=== PATIENT | male | born 1965 | race Caucasian/White ===

== ENCOUNTER → 2016-10-26 | Day surgery (SDC) | payer OTHER ==
[2016-10-25 09:51] VITALS: Ht 180.3 cm; Wt 99.5 kg
[~2016-10-26] VITALS: Ht 180.3 cm; Wt 99.5 kg
[~2016-10-26] MED LIST: AMLO-110 PO; ASCA500 PO; B-COTAB18 PO; BIOT1CAP8 PO; CALC500C70 PO; CHOL1000 PO; CHOL400C PO; CLON1TAB3 PO; CLR10 PO; CYAN100020 PO; CYAN500T PO; CYM60 PO; DIPH-416 PO; DOLU1TAB PO; DULO60CA44 PO; FERR1TAB23 PO; FRS/40 PO; GLUCTAB7 PO; IMD/2 PO; KETO2SHA TOP; KRIL1CAP3 PO; LIDOCAINE HCL 2% 2 ML VIAL (20MG/ML) ONE; LITH1TAB10 PO; LSX20 PO; LTHCR300 PO; LTHSR/300 PO; LURA1TAB2 PO; METH-307 PO; METH500T3 PO; MISCTAB26 PO; MISCTAB29 PO; MULT1CHW37 PO; POTA550T4 PO; PROB1TAB16 PO; PROPOFOL IV EMULSION 10 MG/ML 20 ML VIAL IV ONE; PRT/40 PO; RBX750 PO; ROPI3TAB PO; SIME80CH PO; SODIUM CHLORIDE 0.9% 500ML 500 ML IV ONE; TERB250T47 PO; TRAM-10 PO; TRVHP PO; TYLOTC500 PO; VITACAP37 PO; ZINC1TAB PO; ZINC1TAB4 PO; [UNRECOGNIZED DRUG - CODE] PO
[2016-10-26 14:39] VITALS: TEMP 37
--- NOTE | 2016-10-26 14:48 | Endo History and Physical ---
History & Physical Date of Service: Oct 26, 2016. Chief Complaint: Diarrhea, Anemia, Wt. Loss Referring Physician: Chalino History of Present Illness 51 yo CM who presents for EGD secondary to diarrhea, anemia and weight loss. Past Surgical History Hx Cardiac Surgery: No Hx Internal Defibrillator: No Hx Pacemaker: No Hx Abdominal Surgery: Yes (GASTRIC BYPASS WITH LEODAN 2013) Hx of Implantable Prosthesis: No Hx Post-Op Nausea and Vomiting: No Hx Cancer Surgery: No Hx Thoracic Surgery: No Hx Orthopedic: No Hx Urinary Tract Surgery: No Family History None Social History Smoking Status: Never Smoker Hx Substance Use: No Hx Alcohol Use: No Allergies Uncoded Allergies: MERCURY- IN SEAFOOD,EYE DROPS,ETC (Allergy, Intermediate, FACIAL SWELLING , N/V, 06/30/16) Current Medications Reported Home Medications Medications Dose Route/Sig Max Daily Dose Days Date Category Dose Instructions Imodium (Loperamide HCl) 2 Mg Cap 2 Mg PO DAILY PRN 07/17/16 Reported Lomotil (Diphenoxylate HCl/Atropine) Tab 1-2 Tab PO Q4H PRN 07/17/16 Reported Krill Oil 1 Cap Cap 1 Cap PO QAM 07/17/16 Reported Iron (Ferrous Sulfate) 325 Mg Tab 1 Tab PO QPM 07/17/16 Reported Claritin (Loratadine) 10 Mg Tab 10 Mg PO QAM 07/17/16 Reported Zinc (Zinc Gluconate) 100 Mg Tab 1 Tab PO QAM 07/17/16 Reported Norvasc (Amlodipine Besylate) 5 Mg Tab 5 Mg PO QAM 07/17/16 Reported Ginkgo Biloba (Misc Natural Products) 1 Tab Tab 1 Tab PO QAM 07/17/16 Reported Biotin 1 Mg Cap 1 Tab PO QAM 07/17/16 Reported Vitamin D3 (Cholecalciferol) 1,000 Unit Tab 1 Tab PO QAM 07/17/16 Reported Probiotic (Probiotic Product) 1 Tab Tab 1 Tab PO QPM 07/17/16 Reported Os-Bharath 500 Plus D (Calcium/Vitamin D) Tab 1 Tab PO QPM 07/17/16 Reported Glucosamine Chondroitin (Spncdvpmpna-Lguudlpurgj-Ayw C-) 1 Tab Tab 1 Tab PO QAM 07/17/16 Reported E-400 (Vitamin E) 400 Unit Cap 1 Tab PO QAM 07/17/16 Reported Vitamin C (Ascorbic Acid) 500 Mg Tab 1 Tab PO QAM 07/17/16 Reported Multi Adult Gummies (Multiple Vitamins W/ Minerals) 1 Chw Chw 1 Tab PO BID 07/17/16 Reported Ketoconazole (Ketoconazole (Topical)) 2 % Sha 1 Appln TOP DAILY PRN 30 07/07/16 Reported Tivicay (Dolutegravir Sodium) 50 Mg Tab 50 Mg PO QAM 07/07/16 Reported Terbinafine Hcl 250 Mg Tab 1 Tab PO QAM 07/07/16 Reported Latuda (Lurasidone Hcl) 120 Mg Tab 120 Mg PO QPM 06/30/16 Reported TAKWE WITH EVENING MEAL Requip (Ropinirole HCl) 3 Mg Tab 3 Mg PO QPM 06/30/16 Reported TAKE THIS MED 2 HOURS BEFORE BEDTIME Robaxin (Methocarbamol) 750 Mg Tab 750-1,500 Mg PO DAILY PRN 06/30/16 Reported Cymbalta (Duloxetine Hcl) 60 Mg Cap 60 Mg PO HS 06/30/16 Reported TAKE WITH 30MG = 90 MG DAILY [place] Carbonate 300 Mg Cap 600 Mg PO QPM 06/30/16 Reported [place] Carbonate 300 Mg Cap 300 Mg PO QAM 06/30/16 Reported Lasix (Furosemide) 40 Mg Tab 40 Mg PO DAILY PRN 08/13/13 Reported Klonopin (Clonazepam) 1 Mg Tab 1 Mg PO BID PRN 06/20/13 Reported Truvada 200/300MG (Emtricitabine/Tenofovir) Tab 1 Tablet PO QAM 06/20/13 Reported Vital Signs Weight (Kilograms): 99.55 Height (Feet): 5 Height (Inches): 11 Date Time Temp Pulse Resp B/P Pulse Ox O2 Delivery O2 Flow Rate FiO2 10/26/16 14:39 37 68 18 137/71 98 Room Air Physical Exam General Appearance: WD/WN, no apparent distress Respiratory/Chest: Auscultation: breath sounds normal Cardiovascular: Heart Auscultation: RRR Abdomen: Bowel Sounds: normal Inspection & Palpation: soft, non-distended, no tenderness, guarding & rebound Assessment and Plan Assessment: 51 yo CM who presents for EGD secondary to diarrhea, anemia and weight loss. Plan: Proceed with EGD.
--- NOTE | 2016-10-26 15:03 | Discharge Instructions ---
Endoscopy Patient Instructions Date / Procedure(s) Performed Oct 26, 2016. EGD Allergy Information Uncoded Allergies: MERCURY- IN SEAFOOD,EYE DROPS,ETC (Allergy, Intermediate, FACIAL SWELLING , N/V, 06/30/16) Discharge Date / Findings Oct 26, 2016. Removal of foreign body (staple) Normal Italo-En-Y Gastric bypass anatomy Medication Instructions OK to resume all medications today as prescribed. Reported Home Medications Medications Dose Route/Sig Max Daily Dose Days Date Category Dose Instructions Imodium (Loperamide HCl) 2 Mg Cap 2 Mg PO DAILY PRN 07/17/16 Reported Lomotil (Diphenoxylate HCl/Atropine) Tab 1-2 Tab PO Q4H PRN 07/17/16 Reported Krill Oil 1 Cap Cap 1 Cap PO QAM 07/17/16 Reported Iron (Ferrous Sulfate) 325 Mg Tab 1 Tab PO QPM 07/17/16 Reported Claritin (Loratadine) 10 Mg Tab 10 Mg PO QAM 07/17/16 Reported Zinc (Zinc Gluconate) 100 Mg Tab 1 Tab PO QAM 07/17/16 Reported Norvasc (Amlodipine Besylate) 5 Mg Tab 5 Mg PO QAM 07/17/16 Reported Ginkgo Biloba (Misc Natural Products) 1 Tab Tab 1 Tab PO QAM 07/17/16 Reported Biotin 1 Mg Cap 1 Tab PO QAM 07/17/16 Reported Vitamin D3 (Cholecalciferol) 1,000 Unit Tab 1 Tab PO QAM 07/17/16 Reported Probiotic (Probiotic Product) 1 Tab Tab 1 Tab PO QPM 07/17/16 Reported Os-Bharath 500 Plus D (Calcium/Vitamin D) Tab 1 Tab PO QPM 07/17/16 Reported Glucosamine Chondroitin (Eeodqhckntd-Cbuiuoqxtjw-Oyc C-) 1 Tab Tab 1 Tab PO QAM 07/17/16 Reported E-400 (Vitamin E) 400 Unit Cap 1 Tab PO QAM 07/17/16 Reported Vitamin C (Ascorbic Acid) 500 Mg Tab 1 Tab PO QAM 07/17/16 Reported Multi Adult Gummies (Multiple Vitamins W/ Minerals) 1 Chw Chw 1 Tab PO BID 07/17/16 Reported Ketoconazole (Ketoconazole (Topical)) 2 % Sha 1 Appln TOP DAILY PRN 30 07/07/16 Reported Tivicay (Dolutegravir Sodium) 50 Mg Tab 50 Mg PO QAM 07/07/16 Reported Terbinafine Hcl 250 Mg Tab 1 Tab PO QAM 07/07/16 Reported Latuda (Lurasidone Hcl) 120 Mg Tab 120 Mg PO QPM 06/30/16 Reported TAKWE WITH EVENING MEAL Requip (Ropinirole HCl) 3 Mg Tab 3 Mg PO QPM 06/30/16 Reported TAKE THIS MED 2 HOURS BEFORE BEDTIME Robaxin (Methocarbamol) 750 Mg Tab 750-1,500 Mg PO DAILY PRN 06/30/16 Reported Cymbalta (Duloxetine Hcl) 60 Mg Cap 60 Mg PO HS 06/30/16 Reported TAKE WITH 30MG = 90 MG DAILY [place] Carbonate 300 Mg Cap 600 Mg PO QPM 06/30/16 Reported [place] Carbonate 300 Mg Cap 300 Mg PO QAM 06/30/16 Reported Lasix (Furosemide) 40 Mg Tab 40 Mg PO DAILY PRN 08/13/13 Reported Klonopin (Clonazepam) 1 Mg Tab 1 Mg PO BID PRN 06/20/13 Reported Truvada 200/300MG (Emtricitabine/Tenofovir) Tab 1 Tablet PO QAM 06/20/13 Reported Provider Instructions Activity Restrictions - No exercising or heavy lifting for 24 hours. - Do not drink alcohol the day of the procedure. - Do not drive a car or operate machinery until the day after the procedure. - Do not make any important decisions or sign important papers in 24 hours after the procedure. Following Day: - Return to full activity which may include returning to work/school. Diet Start your diet with liquids and light foods (jello, soup, juice, toast). Then eat your usual diet if not nauseated. Treatment For Common After Affects For mild abdominal pain, bloating, or excessive gas: - Rest - Eat lightly - Lie on right side Follow-Up Information Follow-up with Chalino as scheduled Anesthesia Information What You Should Know You have had a procedure that required some medicine to reduce anxiety and discomfort. This treatment is called moderate sedation. After receiving the treatment, you may be sleepy, but you will be able to breathe on your own. The effects of the treatment may last for several hours. Follow these instructions along with Activity/Diet recommendations noted above: * Do NOT do anything where dizziness or clumsiness would be dangerous. * Rest quietly at home today, then you can be up and about tomorrow. * Have a responsible person stay with you the rest of today. * You may have had an I.V. today. If so, you may take the dressing off later today. Recommendations Call your doctor if: * Trouble breathing * Continuous vomiting for more than 24 hours * Temperature above 101 degrees * Severe abdominal pain or bloating * Pain not relieved by pain medicine ordered * There is increased drainage or redness from any incision * A large amount of rectal bleeding greater than 2-3 tablespoons. (If you had a polyp/s removed or have hemorrhoids, a small amount of blood - from the rectum is to be expected.) * You have any unanswered questions or concerns. IN THE EVENT OF A SERIOUS EMERGENCY, GO TO THE NEAREST EMERGENCY ROOM Your discharge instructions were prepared by provider Roge Ramos. Patient Instructions Signature Page Vijay Bower Patient (or Guardian) Signature/Date: I have read and understand the instructions given to me by my caregivers. Caregiver/RN/Doctor Signature/Date: The above-named patient and/or guardian has received patient instructions on this date. + Original Patient Signature Page (only) stays with chart. Please make copy for patient.
--- NOTE | 2016-10-26 15:17 | GI REPORT ---
Procedure Date: 10/26/2016 2:52 PM Procedure: Upper GI endoscopy Indications: Iron deficiency anemia, Diarrhea, Weight loss Medicines: Monitored Anesthesia Care Complications: No immediate complications. Estimated Blood Loss: Estimated blood loss: none. Procedure: Pre-Anesthesia Assessment: - Prior to the procedure, a History and Physical was performed, and patient medications and allergies were reviewed. The patient's tolerance of previous anesthesia was also reviewed. The risks and benefits of the procedure and the sedation options and risks were discussed with the patient. All questions were answered, and informed consent was obtained. Prior Anticoagulants: The patient has taken no previous anticoagulant or antiplatelet agents. ASA Grade Assessment: III - A patient with severe systemic disease. After reviewing the risks and benefits, the patient was deemed in satisfactory condition to undergo the procedure. After obtaining informed consent, the endoscope was passed under direct vision. Throughout the procedure, the patient's blood pressure, pulse, and oxygen saturations were monitored continuously. The scope was introduced through the mouth, and advanced to the second part of duodenum. The upper GI endoscopy was accomplished without difficulty. The patient tolerated the procedure well. Findings: The esophagus was normal. Evidence of a Italo-en-Y gastrojejunostomy was found. The gastrojejunal anastomosis was characterized by healthy appearing mucosa and an intact staple line. This was traversed. The emckv-zi-hjodgyr limb was characterized by healthy appearing mucosa. The eitgdhmj-pp-tmsfpea limb was not examined as it could not be found. The examined jejunum was normal. Impression: - Normal esophagus. - Italo-en-Y gastrojejunostomy with gastrojejunal anastomosis characterized by healthy appearing mucosa and an intact staple line. - Normal examined jejunum. - No specimens collected. Recommendation: - Resume previous diet. - Continue present medications. - Return to GI office as previously scheduled. Roge Ramos DO 10/26/2016 3:17:23 PM This report has been signed electronically. Note Initiated On: 10/26/2016 2:52 PM I attest to the content of the Intraoperative Record and orders documented therein, exceptions below
[2016-10-26 15:32] VITALS: BP 117/68; PULSE 62; O2SAT 98
--- NOTE | 2016-10-26 15:36 | Anesthesiology Progress Note ---
Anesthesia Post Op Note Date & Time Oct 26, 2016 at 15:37 Vital Signs Pain Intensity: 0 Vital Signs Past 12 Hours Date Time Temp Pulse Resp B/P Pulse Ox O2 Delivery O2 Flow Rate FiO2 10/26/16 15:32 62 18 117/68 98 Room Air 10/26/16 15:15 62 18 113/72 100 Room Air 10/26/16 15:05 18 107/59 98 Room Air 10/26/16 14:39 37 68 18 137/71 98 Room Air Notes Mental Status: alert / awake / arousable, participated in evaluation Pt Amnestic to Procedure: Yes Nausea / Vomiting: adequately controlled Pain: adequately controlled Airway Patency, RR, SpO2: stable & adequate BP & HR: stable & adequate Hydration State: stable & adequate Anesthetic Complications: no major complications apparent
== END | disposition home or self-care (01) ==
LOC: C.GI 14:22
PROVIDERS: ATTEND Internal Medicine
DX: D50.9 Iron deficiency anemia, unspecified (principal); R63.4 Abnormal weight loss; R19.7 Diarrhea, unspecified; Z98.84 Bariatric surgery status; Z98.890 Other specified postprocedural states

== ENCOUNTER → 2017-01-18 | Outpatient (CLI) | payer OTHER ==
[~2017-01-18] MED LIST changes: -LIDOCAINE HCL 2% 2 ML VIAL (20MG/ML) ONE; +PANT40TA2 PO; -PROPOFOL IV EMULSION 10 MG/ML 20 ML VIAL IV ONE; -PRT/40 PO; -SODIUM CHLORIDE 0.9% 500ML 500 ML IV ONE
[2017-01-18 12:03] LABS: BASO % 0.5 %; BASO ABS # 0.02 K/uL (0-0.2); COMPLETE YES; EOS % 1.9 %; HEMATOCRIT 39.7 % (42-52); LYMPH % 41.1 %; LYMPH ABS # 1.75 K/uL (1.2-3.4); MEAN CELL VOLUME 87.4 fL (80-100); MEAN CORPUSCULAR HEMOGLOBIN 30.8 pg (25-34); MEAN CORPUSCULAR HGB CONC 35.3 g/dl (32-36); MEAN PLATELET VOLUME 10.1 fL (7.4-10.4); MONO % 8.7 %; NEUT % 47.8 %; PLATELET COUNT 148 K/uL (130-400); RED BLOOD COUNT 4.54 M/uL (4.7-6.1); WHITE BLOOD COUNT 4.26 K/uL (4.8-10.8)
[2017-01-18 12:48] LABS: ALT/SGPT 19 U/L (12-78); BLOOD UREA NITROGEN 13 mg/dl (7-18); BUN/CREATININE RATIO 13.5 (10-20); CARBON DIOXIDE 28 mmol/L (21-32); CHLORIDE 108 mmol/L (98-107); CHOLESTEROL 148 mg/dl (0-200); CREATININE 0.96 mg/dl (0.60-1.40); GLUCOSE 83 mg/dl (70-99); POTASSIUM 3.8 mmol/L (3.5-5.1); SODIUM 141 mmol/L (136-145); TRIGLYCERIDES 83 mg/dl (0-150); VERY LOW DENSITY LIPOPROT CALC 17 mg/dl
[2017-01-18 12:57] LABS: ALB/GLOB RATIO 1.5 (0.9-2); ALKALINE PHOSPHATASE 66 U/L (45-117); AST/SGOT 14 U/L (15-37); CHOLESTEROL/HDL RATIO 2.7; FERRITIN 149.6 ng/ml (8.0-388.0); HDL CHOLESTEROL 54 mg/dl; LDL CHOLESTEROL CALCULATED 77 mg/dl
[2017-01-18 12:59] LABS: CALCIUM 9.6 mg/dl (8.5-10.1)
== END | disposition home or self-care (01) ==
LOC: C.LAB1850 11:20
PROVIDERS: ATTEND Internal Medicine
DX: D64.9 Anemia, unspecified (principal); E55.9 Vitamin D deficiency, unspecified; R94.6 Abnormal results of thyroid function studies; B20 Human immunodeficiency virus [HIV] disease; I10 Essential (primary) hypertension; R41.3 Other amnesia

== ENCOUNTER 2017-03-04 23:29 | Inpatient (IN) | payer OTHER ==
[~2017-03-04] VITALS: Ht 177.8 cm; Wt 90.0 kg
[~2017-03-04 23:29] MED LIST changes: -B-COTAB18 PO; -CHOL400C PO; -CYAN100020 PO; -CYAN500T PO; -CYM60 PO; -LITH1TAB10 PO; -LSX20 PO; -LTHCR300 PO; -METH500T3 PO; -MISCTAB29 PO; -PANT40TA2 PO; -POTA550T4 PO; -RBX750 PO; -SIME80CH PO; -TRAM-10 PO; -TYLOTC500 PO; -ZINC1TAB PO; -[UNRECOGNIZED DRUG - CODE] PO
[2017-03-04] MEDS ORDERED: NALOXONE HCL 0.4 MG/1 ML VIAL/CARP ONE (23:42)
[2017-03-04] MEDS ORDERED: SODIUM CHLORIDE 0.9% 1000ML 1,000 ML IV STA (23:45)
[2017-03-04 23:56] LABS: BASO % 0.2 %; BASO ABS # 0.01 K/uL (0-0.2); COMPLETE YES; EOS % 1.7 %; HEMATOCRIT 33.5 % (42-52); IG% 0.2 %; LYMPH % 28.6 %; LYMPH ABS # 1.49 K/uL (1.2-3.4); MEAN CELL VOLUME 87.9 fL (80-100); MEAN CORPUSCULAR HEMOGLOBIN 29.9 pg (25-34); MEAN PLATELET VOLUME 9.6 fL (7.4-10.4); MONO % 8.8 %; NEUT % 60.5 %; PLATELET COUNT 139 K/uL (130-400); RED BLOOD COUNT 3.81 M/uL (4.7-6.1); WHITE BLOOD COUNT 5.21 K/uL (4.8-10.8)
[2017-03-05] VITALS (33 sets, daily range): BP systolic 127–181; BP diastolic 81–105; PULSE 51–76; TEMP 34.7–36.9; O2SAT 100; Ht 177.8 cm; Wt 90.0 kg
[2017-03-05] MEDS ORDERED: DEXTROSE 50% 50 ML SYR IV STA (00:01)
[2017-03-05] MEDS ORDERED: RBX750 PO (00:07)
[2017-03-05] MEDS ORDERED: LSX20 PO (00:09)
[2017-03-05] MEDS ORDERED: PRT/40 PO (00:09)
[2017-03-05] MEDS ORDERED: [UNRECOGNIZED DRUG - CODE] PO (00:13)
[2017-03-05] MEDS ORDERED: LITH1TAB10 PO (00:15)
[2017-03-05] MEDS ORDERED: LTHCR300 PO ×3 (00:15→00:24)
[2017-03-05 00:17] LABS: ALT/SGPT 21 U/L (12-78); BLOOD UREA NITROGEN 14 mg/dl (7-18); BUN/CREATININE RATIO 14.1 (10-20); CALCIUM 7.8 mg/dl (8.5-10.1); CARBON DIOXIDE 26 mmol/L (21-32); CHLORIDE 110 mmol/L (98-107); CREATININE 0.99 mg/dl (0.60-1.40); GLUCOSE 69 mg/dl (70-99); MAGNESIUM 2.2 mg/dl (1.8-2.4); POTASSIUM 3.1 mmol/L (3.5-5.1); SODIUM 144 mmol/L (136-145)
[2017-03-05] MEDS ORDERED: TRAM-10 PO (00:17)
[2017-03-05] MEDS ORDERED: CYM60 PO (00:18)
[2017-03-05] MEDS ORDERED: SIME80CH PO (00:26)
[2017-03-05] MEDS ORDERED: MISCTAB29 PO (00:27)
[2017-03-05] MEDS ORDERED: METH500T3 PO (00:27)
[2017-03-05 00:28] LABS: ALKALINE PHOSPHATASE 90 U/L (45-117); AST/SGOT 14 U/L (15-37); THYROID STIMULATING HORMONE 0.373 uIu/ml (0.300-4.500)
[2017-03-05] MEDS ORDERED: POTA550T4 PO (00:29)
[2017-03-05] MEDS ORDERED: B-COTAB18 PO (00:29)
[2017-03-05] MEDS ORDERED: CHOL400C PO (00:29)
[2017-03-05] MEDS ORDERED: CYAN100020 PO (00:29)
[2017-03-05] MEDS ORDERED: TYLOTC500 PO (00:30)
[2017-03-05] MEDS ORDERED: ZINC1TAB PO (00:30)
[2017-03-05 00:35] LABS: ACETAMINOPHEN 6 ug/ml (10-30); LITHIUM 0.3 mMOL/L (0.6-1.2)
[2017-03-05 00:38] LABS: BENZODIAZEPINE, URINE NEG (NEG); COCAINE,URINE NEG (NEG); PHENCYCLIDINE, URINE NEG (NEG)
[2017-03-05] MEDS ORDERED: SODIUM CHLORIDE 0.9% 1000ML 1,000 ML IV STA (00:57)
--- NOTE | 2017-03-05 01:56 | EMERGENCY ROOM VISIT NOTE ---
History Report prepared by Asael: Alfredito Ritter Under the Supervision of: Dr. Julia Hernandez M.D. First contact with patient: 23:32 Chief Complaint: UNRESPONSIVE Stated Complaint: UNRESPONSIVE History of Present Illness The patient is a 51 year old male who presents to the Emergency Room for evaluation of a persistent unresponsive state. Per nursing staff, the patient was found unresponsive by his partner. They state that the patient is reported to have been having problems with suicidal ideation recently. He is on Klonopin , Robaxin and Goodell. The patient is HIV positive. HPI limited secondary to unresponsive status. Source of History: nursing staff History Limited By: other (Unresponsive state) Quality: other (Unresponsive status) Timing: other (persistent.) Review of Systems ROS unobtainable secondary to unresponsive status. Past Medical & Surgical Medical Problems: (1) Human Immunodeficiency Virus [Hiv] Disease (2) Hyperlipidemia Nec/Nos (3) Hypertension Nos (4) Kidney stones (5) Peripheral neuropathy (6) Pneumonia (7) Restless leg syndrome (8) Unresponsive Family History Cancer Diabetes mellitus FH ischemic heart disease FH: arthritis FH: seizures Hypertension Lung disease Other cardiovascular diseases Trach/bronchog mal Social History Smoking Status: Never Smoker Alcohol Use: none Drug Use: none Marital Status: in relationship Housing Status: lives with significant other Occupation Status: unemployed Current/Historical Medications Scheduled Amlodipine (Norvasc), 5 MG PO QAM Ascorbic Acid (Vitamin C), 1 TAB PO BID B-Complex Vitamins (Vitamin B Complex), 1 TABS PO DAILYBB Biotin (Biotin), 1 TAB PO QAM Calcium/Vitamin D (Os-Bharath 500 Plus D), 1 TAB PO QPM Cholecalciferol (Vitamin D3), 1 TAB PO QAM Cholecalciferol (Vitamin D3 400), 400 UNIT PO DAILY Cyanocobalamin (Vitamin B12), 1 TAB PO BID Dolutegravir Sodium (Tivicay), 50 MG PO QAM Duloxetine HCl (Duloxetine HCl), 120 MG PO DAILY Emtricitabine/Temofovir (Truvada 200/300MG), 1 TABLET PO QAM Furosemide (Furosemide), 20 MG PO DAILY Ketoconazole (Topical) (Ketoconazole), 1 APPLN TOP DAILY Goodell Carbonate (Goodell Carbonate ER), 1 TAB PO QAM Goodell Carbonate (Goodell Carbonate ER), 2 TAB PO QPM Loratadine (Claritin), 10 MG PO QAM Lurasidone Hcl (Latuda), 120 MG PO QPM Methocarbamol (Methocarbamol), 750 MG PO TID Methylcellulose (Laxative) (Citrucel), 500 MG PO QID Misc Natural Products (Ginkgo Biloba), 120 MG PO QAM Misc Natural Products (Osteo Bi-Flex Advanced Tr), 1 TAB PO DAILY Multiple Vitamins W/ Minerals (Multi Adult Gummies), 1 TAB PO BID Pantoprazole (Pantoprazole Sodium), 40 MG PO DAILY Potassium Gluconate (Potassium Gluconate), 550 MG PO DAILY Probiotic Product (Probiotic), 1 TAB PO QPM Ropinirole (Requip), 3 MG PO QPM Terbinafine Hcl (Terbinafine Hcl), 1 TAB PO QAM Vitamin E (E-400), 400 UNIT PO BID Zinc Gluconate (Zinc), 50 MG PO DAILY Scheduled PRN Acetaminophen (Tylenol), 1,000 MG PO Q4 PRN for Pain or Fever Clonazepam (Klonopin), 1 MG PO BID PRN for Anxiety Diphenoxylate/Atropine (Lomotil), 1-2 TAB PO Q4H PRN for Diarrhea Simethicone (Gas-X), 80 MG PO QID PRN for Gas or Constipation Tramadol (Ultram), 50-100 MG PO DAILY PRN for Pain Allergies Coded Allergies: Mercury (Verified Allergy, Intermediate, Facial swelling, N/V, 03/05/17) "mercury, as in seafood, eye gtts, etc." Physical Exam Vital Signs Date Time Temp Pulse Resp B/P (MAP) Pulse Ox O2 Delivery O2 Flow Rate FiO2 03/05/17 02:45 44 16 91/60 99 Nasal Cannula 2.0 03/05/17 02:20 34.5 46 16 91/54 100 Nasal Cannula 2.0 03/05/17 02:11 47 03/05/17 01:51 48 16 87/46 100 Nasal Cannula 2.0 03/05/17 01:15 49 16 87/49 98 Nasal Cannula 2.0 03/05/17 00:44 51 16 98/57 98 Nasal Cannula 2.0 03/04/17 23:37 60 03/04/17 23:30 35.3 61 16 97/50 97 Room Air Physical Exam Vital signs reviewed. General: Unresponsive to painful or verbal stimuli. Snoring respirations. Oxygen saturations are stable. Noted to be mildly hypotensive. Generally atraumatic. HEENT: No scleral icterus, PERRLA, neck supple. Atraumatic. Cardiovascular: Regular rate and rhythm, no extra sounds. Pulmonary: Clear to auscultation bilaterally, normal work of breathing. Abdomen: Soft, nontender, nondistended, positive bowel sounds. : Two separate rings in place around the genitals. Ulcerations noted to the base of the penis. Moderate swelling appreciated to both the scrotum and the penis. No ischemic injury appreciated. Musculoskeletal: Atraumatic, no peripheral edema. Neurologic: Unresponsive to painful or verbal stimuli. Skin: Warm, dry, no rash Medical Decision & Procedures ER Provider Diagnostic Interpretation: CT results per statrad and my review. CT HEAD: Comparison: MRI dated 08/29/[address] dated 06/20/2013. No evidence of acute intracranial abnormality. Specifically, no acute intracranial hemorrhage, acute infarct, ventriculomegaly, mass effect or midline shift. Mild mucosal thickening in the inferior aspects of the maxillary sinuses. No air-fluid levels in the visualized paranasal sinuses. Skull is intact. One View Chest X-ray interpreted by me: No focal lung consolidation. No failure. Laboratory Results 03/04/17 23:40 Red Blood Count 3.81, Mean Corpuscular Volume 87.9, Mean Corpuscular Hemoglobin 29.9, Mean Corpuscular Hemoglobin Concent 34.0, Mean Platelet Volume 9.6, Neutrophils (%) (Auto) 60.5, Lymphocytes (%) (Auto) 28.6, Monocytes (%) (Auto) 8.8, Eosinophils (%) (Auto) 1.7, Basophils (%) (Auto) 0.2, Neutrophils # (Auto) 3.15, Lymphocytes # (Auto) 1.49, Monocytes # (Auto) 0.46, Eosinophils # (Auto) 0.09, Basophils # (Auto) 0.01 03/04/17 23:40 Test 03/04/17 23:38 03/04/17 23:40 03/04/17 23:50 03/04/17 23:59 Bedside Glucose 75 mg/dl (70-99) White Blood Count 5.21 K/uL (4.8-10.8) Red Blood Count 3.81 M/uL (4.7-6.1) Hemoglobin 11.4 g/dL (14.0-18.0) Hematocrit 33.5 % (42-52) Mean Corpuscular Volume 87.9 fL (80-100) Mean Corpuscular Hemoglobin 29.9 pg (25-34) Mean Corpuscular Hemoglobin Concent 34.0 g/dl (32-36) Platelet Count 139 K/uL (130-400) Mean Platelet Volume 9.6 fL (7.4-10.4) Neutrophils (%) (Auto) 60.5 % Lymphocytes (%) (Auto) 28.6 % Monocytes (%) (Auto) 8.8 % Eosinophils (%) (Auto) 1.7 % Basophils (%) (Auto) 0.2 % Neutrophils # (Auto) 3.15 K/uL (1.4-6.5) Lymphocytes # (Auto) 1.49 K/uL (1.2-3.4) Monocytes # (Auto) 0.46 K/uL (0.11-0.59) Eosinophils # (Auto) 0.09 K/uL (0-0.5) Basophils # (Auto) 0.01 K/uL (0-0.2) RDW Standard Deviation 42.5 fL (36.4-46.3) RDW Coefficient of Variation 13.2 % (11.5-14.5) Immature Granulocyte % (Auto) 0.2 % Immature Granulocyte # (Auto) 0.01 K/uL (0.00-0.02) Anion Gap 8.0 mmol/L (3-11) Estimated GFR () 103.2 Estimated GFR (Non- 89.1 BUN/Creatinine Ratio 14.1 (10-20) Calcium Level 7.8 mg/dl (8.5-10.1) Magnesium Level 2.2 mg/dl (1.8-2.4) Total Bilirubin 0.4 mg/dl (0.2-1) Direct Bilirubin < 0.1 mg/dl (0-0.2) Aspartate Amino Transf (AST/SGOT) 14 U/L (15-37) Alanine Aminotransferase (ALT/SGPT) 21 U/L (12-78) Alkaline Phosphatase 90 U/L (45-117) Total Protein 5.5 gm/dl (6.4-8.2) Albumin 2.9 gm/dl (3.4-5.0) Thyroid Stimulating Hormone (TSH) 0.373 uIu/ml (0.300-4.500) Salicylates Level < 1.7 mg/dl (2.8-20) Acetaminophen Level 6 ug/ml (10-30) Goodell Level 0.3 mMOL/L (0.6-1.2) Ethyl Alcohol mg/dL < 3.0 mg/dl (0-3) Urine Opiates Screen POS (NEG) Urine Methadone, Qualitative NEG (NEG) Urine Barbiturates NEG (NEG) Urine Phencyclidine (PCP) Level NEG (NEG) Ur Amphetamine/Methamphetamine POS (NEG) MDMA (Ecstasy) Screen POS (NEG) Urine Benzodiazepines Screen NEG (NEG) Urine Cocaine Metabolite NEG (NEG) Urine Marijuana (THC) NEG (NEG) Bedside Troponin I < 0.030 ng/ml (0-0.045) Test 03/05/17 00:00 03/05/17 02:11 03/05/17 02:57 Lyme Disease IgG Antibody NEG (NEG) Lyme Disease IgM Antibody NEG (NEG) Bedside Blood Gas pH (LAB) 7.28 (7.35-7.45) Bedside Blood Gas pCO2 (LAB) 55 mmHg (35-46) Bedside Blood Gas pO2 (LAB) 84 mmHg (80-95) Bedside Blood Gas HCO3 (LAB) 26 meq/L (19-24) Bedside Blood Gas Total CO2 27 mEq/l (24-31) Bedside Blood Gas Base Excess (LAB) -1.0 meq/L (-9-1.8) Bedside Blood Gas O2 Saturation 94.0 % (90-95) Laboratory results per my review. Medications Administered Medications (Trade) Dose Ordered Sig/Anthony Route Start Time Stop Time Status Last Admin Dose Admin Naloxone HCl (Narcan Inj) 1.2 mg STK-MED ONCE .ROUTE 03/04/17 23:42 03/04/17 23:43 DC 03/04/17 23:45 1 MG Sodium Chloride 1,000 ml @ 999 mls/hr Q1H1M STAT IV 03/04/17 23:45 03/05/17 00:45 DC 03/04/17 23:45 999 MLS/HR Dextrose (Dextrose 50% 50ML Syringe) 25 ml NOW STAT IV 03/05/17 00:01 03/05/17 00:02 DC 03/05/17 01:20 25 ML Sodium Chloride 1,000 ml @ 200 mls/hr Q5H STAT IV 03/05/17 00:57 03/05/17 04:53 DC 03/05/17 01:19 200 MLS/HR Procedure Endotracheal Intubation Indication: airway protection. The patient was on 100% oxygen via NRB prior to the procedure. Suction, airway equipment, RSI drugs, respiratory equipment, and appropriate personnel were prepared prior to the initiation of the procedure. A time out was taken. After observing the clinical benefit of the medications, the airway was easily visualized utilizing a 4-0 straight blade. A 7.5 size ETT tube was placed atraumatically to 25 cm using standard technique. The cuff inflated without signs of malfunction. There were bilateral breath sounds, positive colormetric change, no gastric sounds, a good capnography waveform, and post procedure pulse oximetry was 100%. No post procedural sedation was required.. There were no complications. ECG Indication: altered mental status Rate (beats per minute): 61 Rhythm: normal sinus Findings: no acute ischemic change, no ectopy, other (QTC of 475. Non-specific intraventricular conduction delay.) ED Course 2339: Past medical records reviewed. The patient was evaluated in room B1. A complete history and physical examination was performed. 2342: Ordered Narcan Inj 1.2 mg IV. 2345: Ordered Sodium Chloride 1000 ml @ 999 mls/hr IV. 0001: Ordered Dextrose 50% 50 mL Syringe 25 mL IV. 0057: Ordered Sodium Chloride 1000 ml @ 200 mls/hr IV. 0131: Upon reevaluation, the patient is resting comfortably. I discussed laboratory and radiographic results with his family. They verbalized agreement of the treatment plan. I spoke with Dr. Stern of the [facility] Hospitalist Service. The patient will be evaluated for further management and care. 0248: Respiratory was called for the patient. 0310: I intubated the patient. See the procedure note for details. Medical Decision Differential diagnosis: Etiologies such as metabolic, infection, hypoglycemia, electrolyte abnormalities , cardiac sources, intracerebral event, toxicologic, neurologic, as well as others were entertained. This patient was evaluated and appeared to be in no significant distress although he is unresponsive. She is got responded to nasal trumpet placement or IV start. He is breathing on his own and maintaining his oxygenation. Nasal trauma was placed due to some snoring. IV fluids were initiated due to relative hypotension. He is hypothermic and a bear hugger was placed. Patient' s urine drug screen is positive for MDMA, marijuana and opiates. He is not responding to multiple doses of Narcan. Head CT was performed and reveals no evidence of acute intracranial abnormality. The hospitalist was consulted after the patient did not have any improvement in mental status in the emergency department. Dr. Stern has agreed to evaluate him for admission. After his assessment, he has requested endotracheal intubation which was performed without sedation or paralytics. Please my note above. The patient did not require any sedation to maintain the ET tube. Dr. Haines of the ICU was consulted and did arrive in the emergency department, requesting a stat EEG and MRI. I did speak with the patient's partner and made him aware of the patient's critical status. He has agreed to intubation but asks not to have the patient resuscitated otherwise. He states he has documentation of the patient's wishes at home. Consults Time Called: 0122 Consulting Physician: Dr. Stern -[facility] Returned Call: [phone] I reviewed the patient's case with Dr. Stern. [facility] for further management. Impression Primary Impression: Altered mental status Additional Impression: Polysubstance abuse Scribe Attestation The scribe's documentation has been prepared under my direction and personally reviewed by me in its entirety. I confirm that the note above accurately reflects all work, treatment, procedures, and medical decision making performed by me. Departure Information Dispostion Being Evaluated By Hospitalist Referrals RV. Vigil MD (PCP) Patient Instructions My [facility] Problem Qualifiers
[2017-03-05] MEDS ORDERED: MoRPHine SULFATE 2 MG/ML CARP IV PRN (03:00)
[2017-03-05] MEDS ORDERED: LORAZEPAM 2 MG/ML 1 ML VIAL IV PRN (03:00)
[2017-03-05] MEDS ORDERED: RAPID SEQUENCE INDUCTION BAG ONE (03:06)
[2017-03-05 03:11] LABS: ISTAT ARTERIAL BLOOD GAS HCO3 26 meq/L (19-24); ISTAT ARTERIAL BLOOD GAS PCO2 55 mmHg (35-46); ISTAT ARTERIAL BLOOD GAS PO2 84 mmHg (80-95); ISTAT ARTERIAL BLOOD GAS pH 7.28 (7.35-7.45); ISTAT CARBON DIOXIDE 27 mEq/l (24-31)
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
[2017-03-05] MEDS ORDERED: D5NSS + 20MEQ KCL 1,000 ML IV SCH (03:30)
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
--- NOTE | 2017-03-05 04:11 | DIAGNOSTIC IMAGING REPORT ---
CHEST ONE VIEW PORTABLE CLINICAL HISTORY: ETT deviation COMPARISON STUDY: No previous studies for comparison. FINDINGS: Endotracheal tube 4.7 cm both bisi. Nasogastric tube within the stomach. Lungs are clear. IMPRESSION: Endotracheal tube 4.7 cm above the bisi. Nasogastric tube within the stomach. Lungs are clear. No evidence for cardiac enlargement. Electronically signed by: Ramón Ashton M.D. 03/05/2017 4:10 AM Dictated Date/Time: 03/05/2017 4:08 AM
--- NOTE | 2017-03-05 04:14 | DIAGNOSTIC IMAGING REPORT ---
ORBIT RADIOGRAPHS 3 VIEWS HISTORY: pre-MRI screening. COMPARISON: None. FINDINGS: There are no radiopaque foreign bodies identified within the orbits. IMPRESSION: No radiopaque foreign bodies identified within the orbits. Electronically signed by: Ramón Ashton M.D. 03/05/2017 4:12 AM Dictated Date/Time: 03/05/2017 4:12 AM
[2017-03-05 04:22] LABS: LYME DISEASE AB IGG NEG (NEG); LYME DISEASE AB IGM NEG (NEG)
[2017-03-05] MEDS ORDERED: PROSOURCE NOCARB 30ML/PKT PO SCH (05:30)
[2017-03-05] MEDS ORDERED: POTASSIUM CHLORIDE 10 MEQ TABCR PO ONE (06:30)
--- NOTE | 2017-03-05 07:18 | DIAGNOSTIC IMAGING REPORT ---
CT OF THE HEAD WITHOUT CONTRAST CLINICAL HISTORY: Altered mental status. COMPARISON STUDY: Head CT June 20, 2013 and MRI of the brain August 29, 2016. CT DOSE: 614.27 mGy.cm TECHNIQUE: Helical axial images of the head were obtained without IV contrast. Automated exposure control was utilized for the study. FINDINGS: No acute intracranial hemorrhage, midline shift or mass effect is present. Ventricular system is normal. Basilar cisterns are patent. There are no extra-axial collections. Spencer-white differentiation is maintained. There are no findings to suggest acute dural sinus thrombosis or acute territorial infarct. There is mild polypoid mucosal thickening within the sinuses. There is no calvarial abnormality. IMPRESSION: No acute intracranial findings. Electronically signed by: Dwight Hercules M.D. 03/05/2017 7:16 AM Dictated Date/Time: 03/05/2017 7:14 AM
--- NOTE | 2017-03-05 07:20 | DIAGNOSTIC IMAGING REPORT ---
SINGLE VIEW CHEST CLINICAL HISTORY: Change in mental status. Unresponsive. FINDINGS: An AP, portable, upright chest radiograph is compared to study dated 05/10/2014 and correlated with chest CT dated 11/12/2013. The examination is degraded by portable technique and patient rotation. The heart is top normal for projection. Chronic interstitial thickening is unchanged. No airspace consolidation or large pleural effusion is identified. No pneumothorax is seen. The bony thorax is grossly intact. Mild degenerative changes seen throughout the thoracic spine. IMPRESSION: No acute cardiopulmonary abnormality. Electronically signed by: Jefferson Mcdermott M.D. 03/05/2017 7:19 AM Dictated Date/Time: 03/05/2017 7:18 AM
--- NOTE | 2017-03-05 07:27 | DIAGNOSTIC IMAGING REPORT ---
MRI OF THE BRAIN WITHOUT AND WITH IV CONTRAST CLINICAL HISTORY: Altered mental status. COMPARISON STUDY: MRI the brain August 29, [address] performed earlier today. TECHNIQUE: Utilizing a 1.5 Lauren magnet and dedicated coil, multiplanar, multiecho imaging of the brain was performed pre and postcontrast administration. IV administration of 9.7 mL of Gadavist contrast was uneventful. FINDINGS: There are no areas of restricted diffusion. No acute intracranial hemorrhage, midline shift or mass effect is present. Persistent is normal. Basilar cisterns are patent. There are no extra-axial collections. Flow-voids for the major intracranial vessels are present. There are no intracranial masses or pathologic enhancement. A few white matter T2 hyperintense foci are unchanged. There is polypoid mucosal thickening within the sinuses. There are secretions within the nasal pharynx likely related to intubation. Calvarial signal is maintained. IMPRESSION: 1. No acute intracranial findings. 2. No intracranial mass or pathologic enhancement. 3. No change since previous MRI of August 29, 2016. Electronically signed by: Dwight Hercules M.D. 03/05/2017 7:26 AM Dictated Date/Time: 03/05/2017 7:21 AM
[2017-03-05] MEDS: SODIUM CHLOR 0.45% + 20MEQ KCL 1,000 ML IV SCH ×4 (07:30→23:46)
--- NOTE | 2017-03-05 07:41 | DIAGNOSTIC IMAGING REPORT ---
MRI OF THE CERVICAL SPINE WITHOUT IV CONTRAST CLINICAL HISTORY: Change in mental status. Unresponsive. COMPARISON STUDY: No priors. TECHNIQUE: MRI of the cervical spine is performed using various T1 and T2-weighted sequences in the axial and sagittal planes. IV contrast was not administered for this examination. FINDINGS: Cervical spine: Vertebral body height and alignment are maintained throughout the cervical spine. Normal marrow signal intensity is preserved throughout the visualized bony structures. Small anterior osteophytes are noted in the lower cervical region. The atlantodental articulation appears preserved. The spinous processes are intact. Intervertebral discs: There is degenerative disc desiccation seen throughout the cervical spine. Mild loss of height is noted at C5-C6 and C6-C7. Spinal cord: The cervical spinal cord is normal in morphology and signal intensity. C2-C3: Unremarkable. C3-C4: A tiny posterior disc osteophyte complex minimally effaces the ventral subarachnoid space. Facet arthropathy is of no consequence. The neural foramina are patent. C4-C5: A posterior disc osteophyte complex minimally effaces the ventral subarachnoid space. Uncovertebral and facet arthropathy cause minimal right-sided neural foraminal stenosis. C5-C6: A posterior disc osteophyte complex effaces the ventral subarachnoid space. Uncovertebral and facet arthropathy cause minimal bilateral neural foraminal stenosis. C6-C7: A posterior disc osteophyte complex eccentric to the left effaces the subarachnoid space and approaches the ventral cord. Uncovertebral and facet arthropathy cause mild bilateral neural foraminal stenosis, left greater than right. C7-T1: There is a tiny posterior disc osteophyte complex of no consequence. The neural foramina are widely patent. Soft tissues: The prevertebral and paraspinous soft tissues are within normal limits. Brain parenchyma: Partially imaged brain parenchyma at the skull base is normal in appearance. IMPRESSION: 1. The cervical spinal cord is normal in morphology and signal intensity. 2. No destructive bony process is seen. 3. Minimal cervical spondylosis as above. See discussion for [id number] analysis. Dictated: 03/05/2017 7:11 AM Transcribed: 03/05/2017 7:41 AM Deana Electronically signed by: Jefferson Mcdermott M.D. 03/05/2017 7:50 AM Dictated Date/Time: 03/05/2017 7:11 AM
--- NOTE | 2017-03-05 08:27 | EEG Procedure Note ---
EEG Procedure Note Date of Service Mar 05, 2017. Start / End Times Start Time: 4:57 AM End Time: 5:17 AM Referring Physician Daniel Spangler History This is a 41-year-old male who presented unresponsive. EEG for further evaluation of possible seizure etiology and to rule out nonconvulsive status Home Medication List Scheduled Amlodipine (Norvasc), 5 MG PO QAM Ascorbic Acid (Vitamin C), 1 TAB PO BID B-Complex Vitamins (Vitamin B Complex), 1 TABS PO DAILYBB Biotin (Biotin), 1 TAB PO QAM Calcium/Vitamin D (Os-Bharath 500 Plus D), 1 TAB PO QPM Cholecalciferol (Vitamin D3), 1 TAB PO QAM Cholecalciferol (Vitamin D3 400), 400 UNIT PO DAILY Cyanocobalamin (Vitamin B12), 1 TAB PO BID Dolutegravir Sodium (Tivicay), 50 MG PO QAM Duloxetine HCl (Duloxetine HCl), 120 MG PO DAILY Emtricitabine/Temofovir (Truvada 200/300MG), 1 TABLET PO QAM Furosemide (Furosemide), 20 MG PO DAILY Ketoconazole (Topical) (Ketoconazole), 1 APPLN TOP DAILY [place] Carbonate ([place] Carbonate ER), 1 TAB PO QAM [place] Carbonate ([place] Carbonate ER), 2 TAB PO QPM Loratadine (Claritin), 10 MG PO QAM Lurasidone Hcl (Latuda), 120 MG PO QPM Methocarbamol (Methocarbamol), 750 MG PO TID Methylcellulose (Laxative) (Citrucel), 500 MG PO QID Misc Natural Products (Ginkgo Biloba), 120 MG PO QAM Misc Natural Products (Osteo Bi-Flex Advanced Tr), 1 TAB PO DAILY Multiple Vitamins W/ Minerals (Multi Adult Gummies), 1 TAB PO BID Pantoprazole (Pantoprazole Sodium), 40 MG PO DAILY Potassium Gluconate (Potassium Gluconate), 550 MG PO DAILY Probiotic Product (Probiotic), 1 TAB PO QPM Ropinirole (Requip), 3 MG PO QPM Terbinafine Hcl (Terbinafine Hcl), 1 TAB PO QAM Vitamin E (E-400), 400 UNIT PO BID Zinc Gluconate (Zinc), 50 MG PO DAILY Scheduled PRN Acetaminophen (Tylenol), 1,000 MG PO Q4 PRN for Pain or Fever Clonazepam (Klonopin), 1 MG PO BID PRN for Anxiety Diphenoxylate/Atropine (Lomotil), 1-2 TAB PO Q4H PRN for Diarrhea Simethicone (Gas-X), 80 MG PO QID PRN for Gas or Constipation Tramadol (Ultram), 50-100 MG PO DAILY PRN for Pain Inpatient Medication List Current Inpatient Medications Medications (Trade) Dose Ordered Sig/Anthony Route Start Time Stop Time Status Last Admin Dose Admin Lorazepam (Ativan Inj) 1 mg Q6H PRN IV 03/05/17 03:00 04/04/17 02:59 Morphine Sulfate (MoRPHine SULFATE INJ) 2 mg Q2H PRN IV 03/05/17 03:00 03/19/17 02:59 Potassium Chloride/Sodium Chloride 1,000 ml @ 150 mls/hr Q6H40M IV 03/05/17 05:00 04/04/17 04:59 03/05/17 07:30 150 MLS/HR Enteral Nutritional Formula (Prosource No Carb) 30 ml UD PO 03/05/17 05:30 04/04/17 05:29 UNV Enteral Nutritional Formula (Fibersource HN) 1,000 ml UD PO 03/05/17 09:00 04/04/17 08:59 Lansoprazole (Prevacid Solutab) 30 mg DAILY NG 03/05/17 09:00 04/04/17 08:59 Enoxaparin Sodium (Lovenox Inj) 50 mg Q12H SQ 03/05/17 05:30 04/04/17 05:29 UNV Potassium Chloride 10 meq/ Prmx 100 ml @ 100 mls/hr Q1H IV 03/05/17 06:30 03/05/17 08:29 Description This is a 21 electrode EEG with a single channel dedicated to limited EKG. The electrodes were placed in accordance with the International 10-20 system. At the start of this recording the patient was in reported altered mental status. Background was poorly organized with no well formed anterior to posterior gradient. Background was composed of symmetric moderate amplitude predominantly 4-5 Hz delta theta frequencies with rare intermixed alpha frequencies. Photic stimulation at various frequencies did not produce any abnormalities. Hyperventilation was not done. There was no state changes or sleep transients. Interpretation This is an abnormal stat EEG secondary to moderate diffuse background disorganization and slowing. There was no electrographic seizures or epileptiform discharges. Clinical Correlation This EEG indicates a moderate encephalopathy of nonspecific etiology.
[2017-03-05 08:30] LABS: URINE APPEARANCE CLEAR (CLEAR); URINE BILIRUBIN NEG (NEG); URINE COLOR YELLOW; URINE EPITHELIAL CELL AUTO 0-5 /lpf (0-5); URINE NITRITE NEG (NEG); URINE SPECIFIC GRAVITY 1.027 (1.000-1.030); UROBILINOGEN NEG (NEG)
[2017-03-05 08:31] LABS: MANUAL MICROSCOPIC REQUIRED? NO; REVIEW REQ? YES
[2017-03-05] MEDS: POTASSIUM CHLR 10 MEQ / WTR 10 MEQ in PREMIXED WATER 100 ML IV SCH ×2 (08:38→10:00)
[2017-03-05] MEDS: ENOXAPARIN 40 MG/0.4 ML SYR SQ SCH ×2 (08:38→21:45)
[2017-03-05] MEDS: LANSOPRAZOLE SOLUTAB 30 MG NG SCH (08:41)
[2017-03-05 08:44] LABS: ISTAT ALLEN TEST Pass; ISTAT ARTERIAL BLOOD GAS HCO3 26 meq/L (19-24); ISTAT ARTERIAL BLOOD GAS PCO2 48 mmHg (35-46); ISTAT ARTERIAL BLOOD GAS PO2 147 mmHg (80-95); ISTAT ARTERIAL BLOOD GAS pH 7.35 (7.35-7.45); ISTAT CARBON DIOXIDE 28 mEq/l (24-31); ISTAT DELIVERY SYSTEM Ventilator; ISTAT FIO2 30 %; ISTAT PEEP 5; ISTAT RATE 12; ISTAT SITE R Radial; VE 6.9; Vt 55
[2017-03-05] MEDS ORDERED: FIBERSOURCE HN 1000ML BAG PO SCH ×2 (09:00)
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
[2017-03-05] MEDS ORDERED: PANTOprazole INJ 40 MG in SYRINGE 0 ML IV SCH (11:00)
--- NOTE | 2017-03-05 13:06 | ECHOCARDIOGRAM REPORT ---
*NOTICE TO RECEIVING LIBERTARIAN AGENCY This information is strictly Confidential and protected under [place] law. [place] law prohibits you from making any further disclosure of this information unless further disclosure is expressly permitted by the written consent of the person to whom it pertains or is authorized by law. A general authorization for the release of medical or other information is not sufficient for this purpose. Hospital accepts no responsibility if the information is made available to any other person, INCLUDING THE PATIENT. Interpretation Summary * Name: STIVEN GRIGGS Study Date: 03/05/2017 07:28 AM BP: 154/91 mmHg * [facility] HR: 51 * : 1965 (M/d/yyyy) Gender: Male Height: 70 in * Age: 51 yrs Ethnicity: CA Weight: 214 lb * Ordering Physician: Ramiro Haines * Referring Physician: Self, Referred * Performed By: Chasidy Miller RDCS * * Reason For Study: Bradycardia * BSA: 2.1 m2 * -- Conclusions -- * Left ventricular systolic function is normal. * No regional wall motion abnormalities noted. * Ejection Fraction = 60-65%. * No significant valvular pathology. Procedure Details * A complete two-dimensional transthoracic echocardiogram was performed (2D, M-mode, Doppler and color flow Doppler). * The study was technically difficult. * There were technical limitations due to patient'ssupine positioning while on mechanical ventilation Left Ventricle * The left ventricle is normal in size. * There is normal left ventricular wall thickness. * Ejection Fraction = 60-65%. * Left ventricular systolic function is normal. * No regional wall motion abnormalities noted. Right Ventricle * The right ventricle is grossly normal size. * The right ventricular systolic function is normal as assessed by tricuspid annular plane systolic excursion (TAPSE) (normal >1.5 cm). Atria * The left atrium is mildly dilated. * Right atrium not well visualized. * No ASD detected; PFO is not assessed. Mitral Valve * The mitral valve is normal in structure and function. * There is no mitral valve stenosis. * Significant mitral regurgitation is absent. Tricuspid Valve * The tricuspid valve is not well visualized, but is grossly normal. * Significant tricuspid regurgitation is absent. Aortic Valve * The aortic valve is not well visualized. * The aortic valve opens well. * No hemodynamically significant valvular aortic stenosis. Pulmonic Valve * The pulmonary valve is not well seen, but the Doppler examination is normal without significant regurgitation or stenosis. Great Vessels * The aortic root is normal size. * The pulmonary artery is not well visualized, but is probably normal size. Pericardium/Pleural * There is no pericardial effusion. Great Vessels * Normal inferior vena cava diameter and respiratory variation suggests normal central venous pressure. MMode 2D Measurements and Calculations IVSd 1.1 cm LVIDd 5.3 cm LVIDs 3.6 cm LVPWd 0.89 cm IVS/LVPW 1.2 FS 32.2 % EDV(Teich) 133.2 ml ESV(Teich) 53.3 ml EF(Teich) 60.0 % EDV(cubed) 145.8 ml ESV(cubed) 45.5 ml EF(cubed) 68.8 % LV mass(C)d 195.5 grams LV mass(C)dI 91.0 grams/m\S\2 SV(Teich) 79.8 ml SI(Teich) 37.2 ml/m\S\2 SV(cubed) 100.3 ml SI(cubed) 46.7 ml/m\S\2 Ao root diam 3.2 cm Ao root area 8.1 cm\S\2 LA dimension 3.7 cm LA/Ao 1.1 LVOT diam 2.0 cm LVOT area 3.2 cm\S\2 LVAd ap4 32.1 cm\S\2 LVLd ap4 8.6 cm EDV(MOD-sp4) 98.3 ml EDV(sp4-el) 102.3 ml LVAs ap4 17.9 cm\S\2 LVLs ap4 7.2 cm ESV(MOD-sp4) 37.3 ml ESV(sp4-el) 37.8 ml EF(MOD-sp4) 62.0 % EF(sp4-el) 63.0 % LVAd ap2 19.4 cm\S\2 LVLd ap2 8.5 cm EDV(MOD-sp2) 35.7 ml EDV(sp2-el) 37.4 ml LVAs ap2 11.2 cm\S\2 LVLs ap2 7.4 cm ESV(MOD-sp2) 14.0 ml ESV(sp2-el) 14.4 ml EF(MOD-sp2) 60.7 % EF(sp2-el) 61.6 % LVLd %diff -0.26 % EDV(MOD-bp) 58.9 ml LVLs %diff 2.6 % ESV(MOD-bp) 22.8 ml EF(MOD-bp) 61.3 % SV(MOD-sp4) 61.0 ml SI(MOD-sp4) 28.4 ml/m\S\2 SV(MOD-sp2) 21.7 ml SI(MOD-sp2) 10.1 ml/m\S\2 SV(MOD-bp) 36.1 ml SI(MOD-bp) 16.8 ml/m\S\2 SV(sp4-el) 64.5 ml SI(sp4-el) 30.0 ml/m\S\2 SV(sp2-el) 23.1 ml SI(sp2-el) 10.7 ml/m\S\2 Doppler Measurements and Calculations MV E max yusuf 74.2 cm/sec MV A max yusuf 71.3 cm/sec MV E/A 1.0 MV dec time 0.20 sec Ao V2 max 83.5 cm/sec Ao max PG 2.8 mmHg Ao max PG (full) 0.84 mmHg LINDA(V,A) 2.7 cm\S\2 LINDA(V,D) 2.7 cm\S\2 LV V1 max PG 2.0 mmHg LV V1 max 69.8 cm/sec PA V2 max 95.0 cm/sec PA max PG 3.6 mmHg PA acc slope 482.2 cm/sec\S\2 PA acc time 0.12 sec PA pr(Accel) 25.1 mmHg
--- NOTE | 2017-03-05 13:57 | Critical Care Progress Note ---
Critical Care Progress Note Date of Service Mar 05, 2017. Critical Care Progress Note PROGRESS NOTE Patient admitted to the ICU overnight, and was examined and discussed on rounds. He is a 51 yo M, HIV positive, with known suicidal & homicidal ideation. No family has been contacted yet, partner has not been to visit him and brother is admitted into the hospital but has restraining order against him. His care was discussed with Dr. Singh of Neurology, who read the EEG and said there was a moderate encephalopathy, although he was not responsive on neuro exam. His care was also discussed with Dr Sanchez of Psychiatry, who agreed with the plan of holding his home psych medications for now. We will also be holding his HIV medications in the meantime. O/E - General: (Off sedation) Intubated and ventilated, not responsive to name or pain Eyes: Pupils 3mm bilaterally, PERRL CVS: Tachycardic, normal HS, no murmurs Resp: CTAB Abd: Normal bound sounds Ext: No peripheral edema A/P: We will continue current management - holding his home medications, observing, providing ventilatory support, & waiting for family to arrive. Our case management dept has gotten in touch with the partner, please refer to her note. Resident Physician Supervision Note/Sulfate Drier Machine Operator I examined the patient several times today and his care was discussed in detail on multidisciplinary rounds. I reviewed the VS, I/O, meds, notes, labs, imaging and other reports. Discussed with Dr. Horton and agree with findings and plan as documented in the note. Any exceptions or clarifications are listed here : He grimaces to pain and will cough with suctioning. He is beginning to move his RLE spontaneously and to painful stimuli. Continue to follow neuro status off all medications. Tube feeds changed to Peptamen VHP. Documented By: Manisha Kelly Resident Tracking Resident Involvement: Resident Care Provided Care Provided: Adult [facility]
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
[2017-03-05] MEDS ORDERED: PEPTAMEN INTENSE VHP 1000ML BAG OG SCH (14:30)
--- NOTE | 2017-03-05 16:21 | Progress Note ---
Progress Note Date of Service Mar 05, 2017. Progress Note Follow up note, patient admitted earlier in the day still unresponsive but starting to cough, grimace and move right lower extremity all sedation off appreciate recommendations and management from ICU awaiting POA form from patient's partner Sterling 1) Unresponsive - Pt is intubated without sedation EEG and MRI unremarkable working diagnosis is that this is due to medication overdose supportive care while the drugs wear off if no improvement, will need to consider anoxic injury 2) Hypothermia, bradycardia - possibly a drug effect or effect of anoxia. There is no evidence of infection/sepsis. echo normal 3) Bipolar disease, depression, suicidal ideation - holding all medications, appreciate psychiatric input 4) HIV - this is of no immediate concern and was apparently well compensated. His blood count is normal. Code status indeterminate - partner states he will provide documentation
[2017-03-06] VITALS (47 sets, daily range): BP systolic 86–133; BP diastolic 50–94; PULSE 37–74; TEMP 36.6–36.8; O2SAT 94–100
[2017-03-06] MEDS ORDERED: DEXTROSE 50% 50 ML SYR ONE (00:46)
[2017-03-06] MEDS ORDERED: NURSING VERBAL MED ORDER ONE (01:30)
[2017-03-06] MEDS: DexMEDEtomidine HCL INJ 200 MCG in SODIUM CHLORIDE 0.9% 50ML 48 ML IV PRN ×4 (01:42→11:25)
[2017-03-06 05:36] LABS: BASO % 0.2 %; BASO ABS # 0.01 K/uL (0-0.2); COMPLETE YES; EOS % 1.1 %; HEMATOCRIT 38.7 % (42-52); LYMPH % 30.8 %; LYMPH ABS # 1.64 K/uL (1.2-3.4); MEAN CELL VOLUME 88.8 fL (80-100); MEAN CORPUSCULAR HEMOGLOBIN 29.6 pg (25-34); MEAN CORPUSCULAR HGB CONC 33.3 g/dl (32-36); MEAN PLATELET VOLUME 9.5 fL (7.4-10.4); MONO % 10.7 %; NEUT % 57.2 %; PLATELET COUNT 130 K/uL (130-400); RED BLOOD COUNT 4.36 M/uL (4.7-6.1); WHITE BLOOD COUNT 5.33 K/uL (4.8-10.8)
[2017-03-06 06:13] LABS: BUN/CREATININE RATIO 14.7 (10-20); CREATININE 0.58 mg/dl (0.60-1.40); MAGNESIUM 2.2 mg/dl (1.8-2.4); PHOSPHORUS 3.4 mg/dl (2.5-4.9); POTASSIUM 4.3 mmol/L (3.5-5.1)
[2017-03-06] MEDS: SODIUM CHLOR 0.45% + 20MEQ KCL 1,000 ML IV SCH (06:40)
[2017-03-06] MEDS: ENOXAPARIN 40 MG/0.4 ML SYR SQ SCH ×2 (09:16→21:36)
[2017-03-06] MEDS: LANSOPRAZOLE SOLUTAB 30 MG NG SCH (09:16)
--- NOTE | 2017-03-06 10:46 | Critical Care Progress Note ---
Critical Care Progress Note Date of Service Mar 06, 2017. ICU Day ICU Day Number: [address] Robin Prescott Vijay woke up around 1am last night, and self-extubated himself them too. He required security and multiple staff members to restrain him and was being violent to them all. He was placed on Precedex. He remains on violent restraints. He currently does wake up and curse at staff then go back to sleep. He has no nonverbal signs of pain. Objective GENERAL: Awake, alert, well-appearing, HENT: Normocephalic, atraumatic. Oropharynx unremarkable. EYES: Normal conjunctiva. Sclera non-icteric. NECK: No JVD. RESPIRATORY: Clear to auscultation. CARDIAC: Regular rate, normal rhythm. Extremities warm and well perfused. Pulses equal. ABDOMEN: Soft, non-distended. No tenderness to palpation. No rebound or guarding. No masses. MUSCULOSKELETAL: Chest examination reveals no tenderness. LOWER EXTREMITIES: Calves are equal size bilaterally and non-tender. No edema. No discoloration. NEURO: Normal sensorium. No sensory or motor deficits noted. SKIN: No rash or jaundice noted. Current SOFA Score SOFA Score Response (Comments) Value Platelets (x10) < 150 1 Bilirubin (mg/dL) < 1.2 0 [place] Coma Score 10 - 12 2 Level of Hypotension No Hypotension 0 Creatinine (mg/dL) < 1.2 0 Total 3 Assessment & Plan NEURO: Remains on Precedex for sedation. Can increase this up to 1.2 mcg/kg/hr, is currently at 0.7 mcg/kr/hr Restraints: Violent restraints ordered. Needs to be re-assessed on a q4h basis. RASS 0, CAM positive. PSYCH: Discussed with Dr Sanchez. For acute delirium, we will provide Haldol 5-10mg IV until he is calmed down. We want to avoid benzodiazepines to wash these out of his system, but ativan or versed can be used as needed as last resort. We will hold off on Zyprexa for now. We will hold his psych medications (Latuda and Ailey) as well. He will likely require psych admission after delirium / medical issues resolve. CVS: We will monitor QTc closely, and get a repeat EKG this afternoon. Is not on pressor support. GI: Has frequent loose BMs, with C Diff negative. Fecal management system ordered today. ID: Still awaiting Sterling (pts partner) to bring in home HIV meds, though apparently these were open so unsure if pt was actually compliant with them. RENAL: Is overall positive, will decrease IV fluids from 150mL/hr to 100mL/hr ENDO: Glc 53-88, will continue to monitor Not on any insulin HEME: Hb 12.9 DVT Proph: Lovenox, SCDs DISPO: Remains in ICU Resident Physician Supervision Note/Director Blood Bank The patient's care was discussed in detail on multidisciplinary rounds today. I have attempted to interview him but he his sedated with Precedex. I examined him and found him to be lethargic with adequate respiratory effort, CO2 monitor in place - 40's, he follows simple commands moving all 4 extremities and CAM assessment was not able to be performed. I have reviewed his chart - VS, I/O, notes, meds, labs, micro, imaging and other reports. I have reviewed Dr. Horton's note, discussed the patient with her and agree with her assessment and plan. Any clarifications can be found below. He was very combative last night, kicking staff and requiring 4 point restraints. He self extubated at that time and mental status seems to be improving - precedex is being weaned. Holding all medications due to presumed polypharmacy overdose and Dr. Sanchez agrees based on my discussion with her today. If necessary, will use Haldol IV in order to transition him off the Precedex. Follow QT interval. Will need inpatient psychiatric admission once medically stable. He has sinus bradycardia likely exacerbated by the precedex but hemodynamic and urine output otherwise are satisfactory. IVF adjusted. Still holding on HIV meds as well. His partner told me he found full prescription bottles of them in the home so it's likely he has not been taking them. Will consult ID once he is able to take po. Fecal managment system is now in place for diarrhea. He is showing improvement overall. We still do not have a POA for him and have his aunt's phone number should we need a family member to make decisions for him. I believe his significant other of 15 years could also make decisions for him but he has not been able to find the PO/legal documentation to do so. Hopefully he his mental status will improve enough that he can do a POA with the assistance of case management while he is in the hospital. Documented By: Manisha Kelly Consults & Procedures Consultants: Dr Sanchez, Psych Procedures: Intubated 03/04, self-extubated 03/06 Data Medications: Current Inpatient Medications Medications (Trade) Dose Ordered Sig/Anthony Route Start Time Stop Time Status Last Admin Dose Admin Lorazepam (Ativan Inj) 1 mg Q6H PRN IV 03/05/17 03:00 04/04/17 02:59 03/05/17 20:34 1 MG Morphine Sulfate (MoRPHine SULFATE INJ) 2 mg Q2H PRN IV 03/05/17 03:00 03/19/17 02:59 Potassium Chloride/Sodium Chloride 1,000 ml @ 100 mls/hr Q10H IV 03/05/17 05:00 04/04/17 04:59 03/06/17 06:40 150 MLS/HR Lansoprazole (Prevacid Solutab) 30 mg DAILY NG 03/05/17 09:00 04/04/17 08:59 03/06/17 09:16 30 MG Enoxaparin Sodium (Lovenox Inj) 40 mg Q12H SQ 03/05/17 09:00 04/04/17 08:59 03/06/17 09:16 40 MG Dexmedetomidine HCl 200 mcg/ Sodium Chloride 50 ml @ 0 mls/hr Q0M PRN IV 03/06/17 01:30 03/10/17 01:29 03/06/17 07:34 14.3 MLS/HR Vital Signs: Date Time Temp Pulse Resp B/P (MAP) Pulse Ox O2 Delivery O2 Flow Rate FiO2 03/06/17 09:30 36.6 40 22 95/59 (71) 99 Room Air 03/06/17 07:30 36.6 45 22 96/61 (73) 99 Room Air 03/06/17 07:30 Room Air 03/06/17 06:02 45 19 95/52 (66) 94 Room Air 03/06/17 05:02 50 18 105/65 (78) 100 Room Air 03/06/17 04:02 36.6 47 22 101/58 (72) 100 Room Air 03/06/17 04:00 Room Air 03/06/17 03:02 55 15 108/67 (81) 98 Room Air 03/06/17 02:02 61 15 117/70 (86) 100 Room Air 03/06/17 01:06 74 19 126/74 (91) 98 Room Air 03/06/17 00:02 36.7 63 16 133/84 (100) 100 Mechanical Ventilator 30 03/06/17 00:01 30 03/06/17 00:01 30 03/05/17 23:02 36.7 57 18 127/81 (96) 100 Mechanical Ventilator 30 03/05/17 22:38 30 03/05/17 22:02 36.9 61 16 146/86 (106) 100 Mechanical Ventilator 30 03/05/17 21:32 36.9 56 19 139/82 (101) 100 Mechanical Ventilator 30 03/05/17 21:02 36.9 60 19 134/82 (99) 100 Mechanical Ventilator 30 03/05/17 20:39 36.8 63 18 136/89 (105) 100 Mechanical Ventilator 30 03/05/17 20:04 76 34 149/95 (113) 100 Mechanical Ventilator 30 03/05/17 20:00 30 03/05/17 20:00 30 03/05/17 19:20 30 03/05/17 18:02 36.7 56 11 143/88 (106) 100 03/05/17 16:02 36.7 59 16 163/97 (119) 100 03/05/17 16:00 Mechanical Ventilator 30 03/05/17 16:00 30 03/05/17 14:13 30 03/05/17 13:32 36.6 57 15 164/100 100 03/05/17 13:30 36.6 57 15 100 03/05/17 13:02 36.6 56 17 160/100 100 03/05/17 13:00 36.6 58 17 100 03/05/17 12:30 36.5 57 17 100 03/05/17 12:02 36.4 58 15 155/101 100 03/05/17 12:00 36.4 56 15 100 03/05/17 11:32 36.4 58 14 167/101 100 03/05/17 11:30 36.4 56 17 100 03/05/17 11:30 36.4 56 12 165/101 (122) 100 Mechanical Ventilator 30 03/05/17 11:26 Mechanical Ventilator 30 03/05/17 11:26 30 03/05/17 11:24 30 03/05/17 11:09 36.3 57 11 165/105 100 03/05/17 11:00 36.3 58 16 100 03/05/17 10:30 36.4 57 15 100 Laboratory Results: Last 24 Hours Test 03/05/17 10:30 03/05/17 10:46 03/05/17 18:55 03/06/17 00:44 Troponin I < 0.015 ng/ml < 0.015 ng/ml Bedside Glucose 76 mg/dl 80 mg/dl 53 mg/dl Test 03/06/17 01:18 03/06/17 05:26 03/06/17 05:32 Bedside Glucose 122 mg/dl 83 mg/dl White Blood Count 5.33 K/uL Red Blood Count 4.36 M/uL Hemoglobin 12.9 g/dL Hematocrit 38.7 % Mean Corpuscular Volume 88.8 fL Mean Corpuscular Hemoglobin 29.6 pg Mean Corpuscular Hemoglobin Concent 33.3 g/dl Platelet Count 130 K/uL Mean Platelet Volume 9.5 fL Neutrophils (%) (Auto) 57.2 % Lymphocytes (%) (Auto) 30.8 % Monocytes (%) (Auto) 10.7 % Eosinophils (%) (Auto) 1.1 % Basophils (%) (Auto) 0.2 % Neutrophils # (Auto) 3.05 K/uL Lymphocytes # (Auto) 1.64 K/uL Monocytes # (Auto) 0.57 K/uL Eosinophils # (Auto) 0.06 K/uL Basophils # (Auto) 0.01 K/uL RDW Standard Deviation 43.1 fL RDW Coefficient of Variation 13.3 % Immature Granulocyte % (Auto) 0.0 % Immature Granulocyte # (Auto) 0.00 K/uL Sodium Level 142 mmol/L Potassium Level 4.3 mmol/L Chloride Level 108 mmol/L Carbon Dioxide Level 31 mmol/L Anion Gap 3.0 mmol/L Blood Urea Nitrogen 9 mg/dl Creatinine 0.58 mg/dl Est Creatinine Clear Calc Drug Dose 180.1 ml/min Estimated GFR () 138.8 Estimated GFR (Non- 119.7 BUN/Creatinine Ratio 14.7 Random Glucose 81 mg/dl Phosphorus Level 3.4 mg/dl Magnesium Level 2.2 mg/dl Total Bilirubin 0.5 mg/dl Direct Bilirubin 0.1 mg/dl Aspartate Amino Transf (AST/SGOT) 11 U/L Alanine Aminotransferase (ALT/SGPT) 21 U/L Alkaline Phosphatase 103 U/L Total Protein 5.8 gm/dl Albumin 3.0 gm/dl Resident Tracking Resident Involvement: Resident Care Provided Care Provided: Adult [facility] Medicine
--- NOTE | 2017-03-06 11:26 | Psychiatric Progress Notes ---
Progress Note Date of Service Mar 06, 2017. Interval History Vijay Bower is a 51-year-old male who currently lives in [place] with his partner, Sterling, has a history of bipolar disorder type I, anxiety not otherwise specified, HIV, and illicit substance abuse, and was admitted to the ICU after his partner found him unresponsive at home. Psychiatry was consulted for a question of overdose/suicide attempt. Chief Complaint Patient unresponsive and nonverbal. Subjective Patient was seen & assessed, records reviewed, and case discussed with Drs. Kelly and oSl. Patient remained unresponsive, sedated and intubated all day yesterday, then awoke and was agitated last night. He self extubated, and was placed in restraints and on a Precedex drip for ongoing aggression towards staff. He has had multiple episodes of fecal incontinence. He had minimal speech, telling staff to leave him alone, and mumbling incoherently. He is bradycardic and hypotensive, and his last EKG from yesterday showed a QTC of 461 , down from 475 the day prior. On exam today, he is unresponsive. Review of Systems Attempted to review 10 systems, the patient unresponsive and unable to participate. Mental Status Exam During interview pt is: other (unresponsive) Appearance: disheveled Eye contact is: other (eyes closed) Speech: other (nonverbal) Affect: constricted (sedated) Thought process: other (cannot assess) Thought content: other (cannot assess) Impression 51-year-old partnered white male with a history of bipolar type I, substance abuse, anxiety, and multiple medical problems who presents with altered mental status and unresponsiveness after an argument with his significant other. There is a high suspicion for overdose, as his drug screen was positive for opiates, amphetamine/methamphetamine and MDMA, none of which he is prescribed. In addition, his partner indicates that the patient recently made comments about putting together a combination of medications that he could use to end his life if he so desired. His EEG indicates encephalopathy which is consistent with toxic ingestion, but we will need to get more information from the patient when he wakes up. He has also been abusing methamphetamine and possibly other substances, which may be playing a role in his altered mental status as well. Plan (1) Unresponsive Management per primary team. We will continue to follow and assess as he hopefully regains consciousness. Disposition possibilities include inpatient psychiatric treatment if this was a suicide attempt, versus inpatient rehabilitation for worsening substance abuse. 03/06 - discussed medication options with the primary team. Would avoid deliriogenic medications, including benzodiazepines, anticholinergics, and antihistamines, as these could worsen his delirium. Would reserve antipsychotics for episodes of agitation only, and recommend following his QTC with serial EKGs due to the risk of prolonged QTC. (2) Polysubstance abuse Drug screen is positive for opiates, amphetamine/methamphetamine, and MDMA. Follow-up on confirmatory results. Attempt to determine what medications were present in his "bug out bag" of medications, as some of these could be part of his toxic ingestion, and he may also have been abusing illicit substances recreationally. He recently admitted to regular methamphetamine use, and also has a history of cocaine abuse. Would not recommend that he be prescribed any controlled substances outside the hospital, and will not resume clonazepam on discharge. I suspect that he was minimizing his substance abuse when it was last discussed at his outpatient appointment, as his significant other also reported the patient has been experimenting with GHB. 03/06 - patient still nonverbal and unable to provide information. I have asked the psychiatric liaison nurse to speak with his partner to get collateral information about what substances he has been abusing and how frequently, and any details he may know about the concoction of medications he put together. (3) Anxiety Hold scheduled psychotropic medications due to altered mental status, including duloxetine, and consider restarting it once he stabilizes. (4) Bipolar 1 disorder Hold lithium, Latuda, and duloxetine; consider restarting them as he regains consciousness. 03/06 - patient had been on multiple mood stabilizing and antipsychotic agents as an outpatient with limited efficacy. I would hold off on restarting any of his scheduled psychotropics until his delirium has resolved. Visit Code E&M Code: 58170 Data Vital Signs Last 24 Hrs: Date Time Temp Pulse Resp B/P (MAP) Pulse Ox O2 Delivery O2 Flow Rate FiO2 03/06/17 09:30 36.6 40 22 95/59 (71) 99 Room Air 03/06/17 07:30 36.6 45 22 96/61 (73) 99 Room Air 03/06/17 07:30 Room Air 03/06/17 06:02 45 19 95/52 (66) 94 Room Air 03/06/17 05:02 50 18 105/65 (78) 100 Room Air 03/06/17 04:02 36.6 47 22 101/58 (72) 100 Room Air 03/06/17 04:00 Room Air 03/06/17 03:02 55 15 108/67 (81) 98 Room Air 03/06/17 02:02 61 15 117/70 (86) 100 Room Air 03/06/17 01:06 74 19 126/74 (91) 98 Room Air 03/06/17 00:02 36.7 63 16 133/84 (100) 100 Mechanical Ventilator 30 03/06/17 00:01 30 03/06/17 00:01 30 03/05/17 23:02 36.7 57 18 127/81 (96) 100 Mechanical Ventilator 30 03/05/17 22:38 30 03/05/17 22:02 36.9 61 16 146/86 (106) 100 Mechanical Ventilator 30 03/05/17 21:32 36.9 56 19 139/82 (101) 100 Mechanical Ventilator 30 03/05/17 21:02 36.9 60 19 134/82 (99) 100 Mechanical Ventilator 30 03/05/17 20:39 36.8 63 18 136/89 (105) 100 Mechanical Ventilator 30 03/05/17 20:04 76 34 149/95 (113) 100 Mechanical Ventilator 30 03/05/17 20:00 30 03/05/17 20:00 30 03/05/17 19:20 30 03/05/17 18:02 36.7 56 11 143/88 (106) 100 03/05/17 16:02 36.7 59 16 163/97 (119) 100 03/05/17 16:00 Mechanical Ventilator 30 03/05/17 16:00 30 03/05/17 14:13 30 03/05/17 13:32 36.6 57 15 164/100 100 03/05/17 13:30 36.6 57 15 100 03/05/17 13:02 36.6 56 17 160/100 100 03/05/17 13:00 36.6 58 17 100 03/05/17 12:30 36.5 57 17 100 03/05/17 12:02 36.4 58 15 155/101 100 03/05/17 12:00 36.4 56 15 100 03/05/17 11:32 36.4 58 14 167/101 100 03/05/17 11:30 36.4 56 17 100 03/05/17 11:30 36.4 56 12 165/101 (122) 100 Mechanical Ventilator 30 03/05/17 11:26 Mechanical Ventilator 30 03/05/17 11:26 30 03/05/17 11:24 30 Meds Administered Last 24 Hrs: Meds Administered (Past 24Hrs) Medications (Trade) Dose Ordered Sig/Anthony Route Start Time Stop Time Status Last Admin Dose Admin Naloxone HCl (Narcan Inj) 1.2 mg STK-MED ONCE .ROUTE 03/04/17 23:42 03/04/17 23:43 DC 03/04/17 23:45 1 MG Sodium Chloride 1,000 ml @ 999 mls/hr Q1H1M STAT IV 03/04/17 23:45 03/05/17 00:45 DC 03/04/17 23:45 999 MLS/HR Dextrose (Dextrose 50% 50ML Syringe) 25 ml NOW STAT IV 03/05/17 00:01 03/05/17 00:02 DC 03/05/17 01:20 25 ML Sodium Chloride 1,000 ml @ 200 mls/hr Q5H STAT IV 03/05/17 00:57 03/05/17 04:53 DC 03/05/17 01:19 200 MLS/HR Lorazepam (Ativan Inj) 1 mg Q6H PRN IV 03/05/17 03:00 04/04/17 02:59 03/05/17 20:34 1 MG Potassium Chloride/Sodium Chloride 1,000 ml @ 100 mls/hr Q10H IV 03/05/17 05:00 04/04/17 04:59 03/06/17 06:40 150 MLS/HR Enteral Nutritional Formula (Fibersource HN) 1,000 ml UD PO 03/05/17 09:00 03/05/17 14:34 DC 03/05/17 10:00 1,000 ML Lansoprazole (Prevacid Solutab) 30 mg DAILY NG 03/05/17 09:00 04/04/17 08:59 03/06/17 09:16 30 MG Enoxaparin Sodium (Lovenox Inj) 40 mg Q12H SQ 03/05/17 09:00 04/04/17 08:59 03/06/17 09:16 40 MG Potassium Chloride 10 meq/ Prmx 100 ml @ 100 mls/hr Q1H IV 03/05/17 06:30 03/05/17 08:29 DC 03/05/17 10:00 100 MLS/HR Potassium Chloride (Klor-Con M10) 40 meq NOW ONCE PO 03/05/17 06:30 03/05/17 06:31 DC 03/05/17 08:42 40 MEQ Dextrose (Dextrose 50% 50ML Syringe) 50 ml STK-MED ONCE .ROUTE 03/06/17 00:46 03/06/17 00:47 DC 03/06/17 01:00 50 ML Dexmedetomidine HCl 200 mcg/ Sodium Chloride 50 ml @ 0 mls/hr Q0M PRN IV 03/06/17 01:30 03/10/17 01:29 03/06/17 07:34 14.3 MLS/HR Lab Results Last 24 Hrs: Last 24 Hours Test 03/05/17 18:55 03/06/17 00:44 03/06/17 01:18 03/06/17 05:26 Bedside Glucose 80 mg/dl 53 mg/dl 122 mg/dl Troponin I < 0.015 ng/ml White Blood Count 5.33 K/uL Red Blood Count 4.36 M/uL Hemoglobin 12.9 g/dL Hematocrit 38.7 % Mean Corpuscular Volume 88.8 fL Mean Corpuscular Hemoglobin 29.6 pg Mean Corpuscular Hemoglobin Concent 33.3 g/dl Platelet Count 130 K/uL Mean Platelet Volume 9.5 fL Neutrophils (%) (Auto) 57.2 % Lymphocytes (%) (Auto) 30.8 % Monocytes (%) (Auto) 10.7 % Eosinophils (%) (Auto) 1.1 % Basophils (%) (Auto) 0.2 % Neutrophils # (Auto) 3.05 K/uL Lymphocytes # (Auto) 1.64 K/uL Monocytes # (Auto) 0.57 K/uL Eosinophils # (Auto) 0.06 K/uL Basophils # (Auto) 0.01 K/uL RDW Standard Deviation 43.1 fL RDW Coefficient of Variation 13.3 % Immature Granulocyte % (Auto) 0.0 % Immature Granulocyte # (Auto) 0.00 K/uL Sodium Level 142 mmol/L Potassium Level 4.3 mmol/L Chloride Level 108 mmol/L Carbon Dioxide Level 31 mmol/L Anion Gap 3.0 mmol/L Blood Urea Nitrogen 9 mg/dl Creatinine 0.58 mg/dl Est Creatinine Clear Calc Drug Dose 180.1 ml/min Estimated GFR () 138.8 Estimated GFR (Non- 119.7 BUN/Creatinine Ratio 14.7 Random Glucose 81 mg/dl Phosphorus Level 3.4 mg/dl Magnesium Level 2.2 mg/dl Total Bilirubin 0.5 mg/dl Direct Bilirubin 0.1 mg/dl Aspartate Amino Transf (AST/SGOT) 11 U/L Alanine Aminotransferase (ALT/SGPT) 21 U/L Alkaline Phosphatase 103 U/L Total Protein 5.8 gm/dl Albumin 3.0 gm/dl Test 03/06/17 05:32 Bedside Glucose 83 mg/dl
[2017-03-06 13:00] LABS: CALCIUM 8.3 mg/dl (8.5-10.1)
[2017-03-06] MEDS: DEXTROSE 50% 50 ML SYR ONE ×2 (15:10→15:20)
[2017-03-06] MEDS: D5W AND 1/2NSS + 20MEQ KCL 1,000 ML IV SCH (15:19)
[2017-03-06] MEDS: HALOPERIDOL LACTATE 5 MG/ML 1 ML VIAL IV PRN ×2 (15:25→20:39)
[2017-03-06] MEDS ORDERED: GLUCAGON FOR INJ 1 MG VIAL SQ PRN (16:15)
[2017-03-06] MEDS ORDERED: GLUCOSE 10 TABS/TUBE PO PRN (16:15)
[2017-03-06] MEDS ORDERED: GLUCOSE 40% GEL 15 GM TUBE PO PRN (16:15)
[2017-03-06] MEDS ORDERED: DEXTROSE 50% 50 ML SYR IV PRN (16:15)
--- NOTE | 2017-03-06 17:13 | Progress Note ---
Subjective Date of Service: Mar 06, 2017. Subjective Pt evaluation today including: conversation w/ patient, physical exam, lab review, conversation w/ vocational rehab consultant, review of inpatient medication list Pain: no pain PO Intake: NPO Voiding: collado catheter in place patient became violently agitated last night, self extubated, required 4 point restraints sedated this AM, minimal response appreciate management from ICU and recommendations from psychiatry Problem List Medical Problems: (1) Acute anxiety Status: Acute (2) Altered mental status Status: Acute (3) Depression Status: Acute (4) Depression Status: Acute (5) Emotional crisis as acute reaction to exceptional (gross) stress Status: Acute (6) Polysubstance abuse Status: Acute (7) Suicidal ideation Status: Acute Review of Systems cannot review, altered mental status Medications Current Inpatient Medications Medications (Trade) Dose Ordered Sig/Anthony Route Start Time Stop Time Status Last Admin Dose Admin Lorazepam (Ativan Inj) 1 mg Q6H PRN IV 03/05/17 03:00 04/04/17 02:59 03/05/17 20:34 1 MG Morphine Sulfate (MoRPHine SULFATE INJ) 2 mg Q2H PRN IV 03/05/17 03:00 03/19/17 02:59 Lansoprazole (Prevacid Solutab) 30 mg DAILY NG 03/05/17 09:00 04/04/17 08:59 03/06/17 09:16 30 MG Enoxaparin Sodium (Lovenox Inj) 40 mg Q12H SQ 03/05/17 09:00 04/04/17 08:59 03/06/17 09:16 40 MG Dexmedetomidine HCl 200 mcg/ Sodium Chloride 50 ml @ 0 mls/hr Q0M PRN IV 03/06/17 01:30 03/10/17 01:29 03/06/17 11:25 11.5 MLS/HR Haloperidol Lactate (Haldol Inj) Max 20mg per 24 hours -... Q1H PRN IV 03/06/17 12:00 04/05/17 11:59 03/06/17 15:25 5 MG Potassium Chloride/Dextrose/ Sod Cl 1,000 ml @ 100 mls/hr Q10H IV 03/06/17 15:30 04/05/17 15:29 03/06/17 15:19 100 MLS/HR Glucose (Glucose 40% Gel) UD PRN PO 03/06/17 16:15 04/05/17 16:14 Glucose (Glucose Chew Tab) 1 tabs UD PRN PO 03/06/17 16:15 04/05/17 16:14 Dextrose (Dextrose 50% 50ML Syringe) 50 ml UD PRN IV 03/06/17 16:15 04/05/17 16:14 Glucagon (Glucagon Inj) 1 mg UD PRN SQ 03/06/17 16:15 04/05/17 16:14 Objective Vital Signs Date Time Temp Pulse Resp B/P (MAP) Pulse Ox O2 Delivery O2 Flow Rate FiO2 03/06/17 14:00 36.6 40 22 104/67 (79) 99 Room Air 03/06/17 13:15 40 13 100 03/06/17 13:02 41 15 98/68 (78) 100 03/06/17 13:00 41 14 99 03/06/17 12:47 39 15 106/62 (77) 97 03/06/17 12:45 40 15 100 03/06/17 12:32 43 27 104/62 (76) 100 03/06/17 12:30 41 16 100 03/06/17 12:17 41 15 88/56 (67) 100 03/06/17 12:15 40 16 99 03/06/17 12:04 44 19 87/54 (65) 98 03/06/17 12:02 43 22 86/53 (64) 99 03/06/17 12:00 37 16 97 03/06/17 11:45 40 14 97 03/06/17 11:32 41 15 89/53 (65) 98 03/06/17 11:30 40 14 98 03/06/17 11:30 Room Air 03/06/17 11:30 36.6 40 22 89/50 (63) 99 Room Air 03/06/17 11:22 42 15 86/54 (65) 98 03/06/17 11:22 42 15 86/54 (65) 98 03/06/17 11:15 41 14 97 03/06/17 11:02 40 15 89/53 (65) 97 03/06/17 11:02 40 15 89/53 (65) 97 03/06/17 11:00 40 17 98 03/06/17 11:00 40 17 98 03/06/17 10:32 39 14 95/58 (70) 98 03/06/17 10:30 39 14 98 03/06/17 10:02 39 18 95/59 (71) 97 03/06/17 10:00 43 14 96 03/06/17 09:32 42 10 110/69 (83) 99 03/06/17 09:30 38 15 99 03/06/17 09:30 36.6 40 22 95/59 (71) 99 Room Air 03/06/17 09:02 41 15 100/67 (78) 97 03/06/17 09:00 41 15 98 03/06/17 08:32 41 15 98/66 (77) 98 03/06/17 08:30 40 15 98 03/06/17 08:02 41 15 96/62 (73) 98 03/06/17 08:00 Room Air 03/06/17 08:00 41 15 98 03/06/17 07:32 43 14 94/57 (69) 98 03/06/17 07:30 36.6 45 22 96/61 (73) 99 Room Air 03/06/17 07:30 Room Air 03/06/17 07:30 43 15 97 03/06/17 07:02 42 7 96/61 (73) 97 03/06/17 07:00 45 8 99 03/06/17 06:02 45 19 95/52 (66) 94 Room Air 03/06/17 05:02 50 18 105/65 (78) 100 Room Air 03/06/17 04:02 36.6 47 22 101/58 (72) 100 Room Air 03/06/17 04:00 Room Air 03/06/17 03:02 55 15 108/67 (81) 98 Room Air 03/06/17 02:02 61 15 117/70 (86) 100 Room Air 03/06/17 01:06 74 19 126/74 (91) 98 Room Air 03/06/17 00:02 36.7 63 16 133/84 (100) 100 Mechanical Ventilator 30 03/06/17 00:01 30 03/06/17 00:01 30 03/05/17 23:02 36.7 57 18 127/81 (96) 100 Mechanical Ventilator 30 03/05/17 22:38 30 03/05/17 22:02 36.9 61 16 146/86 (106) 100 Mechanical Ventilator 30 03/05/17 21:32 36.9 56 19 139/82 (101) 100 Mechanical Ventilator 30 03/05/17 21:02 36.9 60 19 134/82 (99) 100 Mechanical Ventilator 30 03/05/17 20:39 36.8 63 18 136/89 (105) 100 Mechanical Ventilator 30 03/05/17 20:04 76 34 149/95 (113) 100 Mechanical Ventilator 30 03/05/17 20:00 30 03/05/17 20:00 30 03/05/17 19:20 30 03/05/17 18:02 36.7 56 11 143/88 (106) 100 Physical Exam General Appearance: no apparent distress, + obese Neck: supple, no adenopathy, no JVD, trachea midline Respiratory/Chest: chest non-tender, lungs clear, normal breath sounds, no respiratory distress, no accessory muscle use Cardiovascular: regular rate, rhythm, no edema, no gallop, no JVD, no murmur Abdomen: normal bowel sounds, non tender, soft, no organomegaly Extremities: normal range of motion, non-tender, normal inspection, no pedal edema, no calf tenderness, pelvis stable 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, no motor/sensory deficits, alert, + depressed affect, + disoriented Skin: normal color, warm/dry, no rash Laboratory Results Last 24 Hours Test 03/05/17 18:55 03/06/17 00:40 03/06/17 00:44 03/06/17 01:18 Bedside Glucose 80 mg/dl 65 mg/dl 53 mg/dl 122 mg/dl Troponin I < 0.015 ng/ml Test 03/06/17 05:26 03/06/17 05:32 03/06/17 11:21 03/06/17 15:04 White Blood Count 5.33 K/uL Red Blood Count 4.36 M/uL Hemoglobin 12.9 g/dL Hematocrit 38.7 % Mean Corpuscular Volume 88.8 fL Mean Corpuscular Hemoglobin 29.6 pg Mean Corpuscular Hemoglobin Concent 33.3 g/dl Platelet Count 130 K/uL Mean Platelet Volume 9.5 fL Neutrophils (%) (Auto) 57.2 % Lymphocytes (%) (Auto) 30.8 % Monocytes (%) (Auto) 10.7 % Eosinophils (%) (Auto) 1.1 % Basophils (%) (Auto) 0.2 % Neutrophils # (Auto) 3.05 K/uL Lymphocytes # (Auto) 1.64 K/uL Monocytes # (Auto) 0.57 K/uL Eosinophils # (Auto) 0.06 K/uL Basophils # (Auto) 0.01 K/uL RDW Standard Deviation 43.1 fL RDW Coefficient of Variation 13.3 % Immature Granulocyte % (Auto) 0.0 % Immature Granulocyte # (Auto) 0.00 K/uL Sodium Level 142 mmol/L Potassium Level 4.3 mmol/L Chloride Level 108 mmol/L Carbon Dioxide Level 31 mmol/L Anion Gap 3.0 mmol/L Blood Urea Nitrogen 9 mg/dl Creatinine 0.58 mg/dl Est Creatinine Clear Calc Drug Dose 180.1 ml/min Estimated GFR () 138.8 Estimated GFR (Non- 119.7 BUN/Creatinine Ratio 14.7 Random Glucose 81 mg/dl Calcium Level 8.3 mg/dl Phosphorus Level 3.4 mg/dl Magnesium Level 2.2 mg/dl Total Bilirubin 0.5 mg/dl Direct Bilirubin 0.1 mg/dl Aspartate Amino Transf (AST/SGOT) 11 U/L Alanine Aminotransferase (ALT/SGPT) 21 U/L Alkaline Phosphatase 103 U/L Total Protein 5.8 gm/dl Albumin 3.0 gm/dl Bedside Glucose 83 mg/dl 76 mg/dl 48 mg/dl Test 03/06/17 15:38 03/06/17 15:53 Bedside Glucose 58 mg/dl 79 mg/dl Assessment and Plan 51 yo male with unresponsive episode, possible toxic ingestion, possible intentional overdose/suicide - Unresponsive: became agitated and self extubated last night sedated on Precedex, restraints currently - Delirium: use Haldol if repeated agitation occurs - QT prolongation: serial EKG, trending down slightly, keep on tele - HIV: partner to bring in HIV medications - Bipolar, depression, possible suicide attempt: psychiatry following, will evaluate further once awake and conversive keep in ICU
[2017-03-07] VITALS (12 sets, daily range): BP systolic 109–127; BP diastolic 62–86; PULSE 49–80; TEMP 36.5–36.9; O2SAT 97–100
[2017-03-07] MEDS: D5W AND 1/2NSS + 20MEQ KCL 1,000 ML IV SCH ×3 (00:54→13:21)
[2017-03-07 05:46] LABS: COMPLETE YES; EOS % 1.7 %; HEMATOCRIT 36.1 % (42-52); IG% 0.3 %; LYMPH % 39.8 %; LYMPH ABS # 1.38 K/uL (1.2-3.4); MEAN CELL VOLUME 87.4 fL (80-100); MEAN CORPUSCULAR HEMOGLOBIN 29.8 pg (25-34); MEAN CORPUSCULAR HGB CONC 34.1 g/dl (32-36); MEAN PLATELET VOLUME 9.7 fL (7.4-10.4); MONO % 10.1 %; NEUT % 48.1 %; PLATELET COUNT 120 K/uL (130-400); RED BLOOD COUNT 4.13 M/uL (4.7-6.1); WHITE BLOOD COUNT 3.47 K/uL (4.8-10.8)
[2017-03-07 06:17] LABS: BUN/CREATININE RATIO 9.4 (10-20); CALCIUM 7.8 mg/dl (8.5-10.1); CREATININE 0.53 mg/dl (0.60-1.40); MAGNESIUM 2.2 mg/dl (1.8-2.4); POTASSIUM 3.7 mmol/L (3.5-5.1)
[2017-03-07 06:20] LABS: PHOSPHORUS 3.3 mg/dl (2.5-4.9)
[2017-03-07] MEDS ORDERED: DIPHENOXYLATE/ATROPINE 2.5/0.025MG TAB PO PRN ×2 (09:15→12:45)
--- NOTE | 2017-03-07 09:25 | Critical Care Progress Note ---
Critical Care Progress Note Date of Service Mar 07, 2017. ICU Day ICU Day Number: [address] Robin Prescott Vijay was awake and alert today. He was violent around 830pm, received a dose of Haldol, and by 4am was calm and Precedex was turned off. This morning, he is calm and interactive. He denies any pain. He says he wants to go home. He does not remember the events of what brought him in here. Objective GENERAL: Awake, alert, well-appearing, HENT: Normocephalic, atraumatic. Oropharynx unremarkable. EYES: Normal conjunctiva. Sclera non-icteric. NECK: No JVD. RESPIRATORY: Clear to auscultation. CARDIAC: Regular rate, normal rhythm. Extremities warm and well perfused. Pulses equal. ABDOMEN: Soft, non-distended. No tenderness to palpation. No rebound or guarding. No masses. MUSCULOSKELETAL: Chest examination reveals no tenderness. LOWER EXTREMITIES: Calves are equal size bilaterally and non-tender. No edema. No discoloration. SCDs in place. NEURO: Normal sensorium. No sensory or motor deficits noted. SKIN: No rash or jaundice noted. Current SOFA Score SOFA Score Response (Comments) Value Platelets (x10) < 150 1 Bilirubin (mg/dL) < 1.2 0 [place] Coma Score 10 - 12 2 Level of Hypotension No Hypotension 0 Creatinine (mg/dL) < 1.2 0 Total 3 Assessment & Plan NEURO: Precedex off, removed from EMR Haldol 5-10mg IV, max 20mg / day for agitation Ativan is on EMR, but if is agitated, use Haldol first. Restraints: Removed for now, will reorder if needed. PSYCH: Dr Sanchez following. We will hold his psych medications ([place] and [place]) as well. He will likely require psych admission after delirium / medical issues resolve - 302 paperwork started. [facility]: Repeat QTc this AM 412 Will continue to monitor GI: Diet ordered today Has frequent loose BMs, with C Diff negative. Will restart home Lomotil today Fecal management system placed, if leaks again then we will discontinue this ID: Still awaiting Sterling (pts partner) to bring in home HIV meds, though apparently these were full so unsure if pt was actually compliant with them. RENAL: Is overall positive, will decrease IV fluids from 150mL/hr to 100mL/hr DC Collado today ENDO: Glc was 48 yesterday, so fluids were changed to D51/2NSS at 100mL/hour. BSGs q6h, most recently 80 If is eating well will DC fluids. HEME: Hb 12.9 DVT Proph: Lovenox, SCDs DISPO: Remains in ICU If is ambulating & remains off Precedex we will consider transfer to Tele. Resident Physician Supervision Note/[employer] The patient's care was discussed in detail on multidisciplinary rounds. I have interviewed and examined him and I have reviewed the VS, I/O, notes, meds, labs , micro, imaging and other reports. He is calm and can carry on a conversation today. He admits to being depressed recently but does not openly admit to suicide attempt. He reports he doesn't remember what happened and his arms feel stiff. He denies missing doses of his HIV medications or recreational drug use. His is off sedation other than getting a dose of haldol last evening. Acute hypercapneic respiratory failure resolved after self extubation 2 nights ago. QTc acceptable. Awaiting psych recommendations and completion of 302. Given the circumstances surrounding his hospitalization such as verbalization to his partner about wanting to kill himself and the history that he allegedly had a concoction of medications stashed somewhere that he intended to use to commit suicide - then being found unresponsive with opioids, amphetamines and ecstasy in his urine tox screen, I believe he needs inpatient psychiatric evaluation for intentional polypharmacy overdose. We are advancing his diet, getting him out of bed, treating diarrhea, discontinuing collado and anticipate d/c IVF later today. His sinus bradycardia is improve and may have been due to medication effect from a potential drug OD or the precedex. He may be a candidate for transfer out of ICU or to psych later today. Documented By: Manisha Kelly Consults & Procedures Consultants: Dr Sanchez, Psych Procedures: Intubated 03/04, self-extubated 03/06 Data Medications: Current Inpatient Medications Medications (Trade) Dose Ordered Sig/Anthony Route Start Time Stop Time Status Last Admin Dose Admin Lorazepam (Ativan Inj) 1 mg Q6H PRN IV 03/05/17 03:00 04/04/17 02:59 03/05/17 20:34 1 MG Morphine Sulfate (MoRPHine SULFATE INJ) 2 mg Q2H PRN IV 03/05/17 03:00 03/19/17 02:59 Lansoprazole (Prevacid Solutab) 30 mg DAILY NG 03/05/17 09:00 04/04/17 08:59 03/06/17 09:16 30 MG Haloperidol Lactate (Haldol Inj) Max 20mg per 24 hours -... Q1H PRN IV 03/06/17 12:00 04/05/17 11:59 03/06/17 20:39 5 MG Potassium Chloride/Dextrose/ Sod Cl 1,000 ml @ 100 mls/hr Q10H IV 03/06/17 15:30 04/05/17 15:29 03/07/17 00:54 100 MLS/HR Glucose (Glucose 40% Gel) UD PRN PO 03/06/17 16:15 04/05/17 16:14 Glucose (Glucose Chew Tab) 1 tabs UD PRN PO 03/06/17 16:15 04/05/17 16:14 Dextrose (Dextrose 50% 50ML Syringe) 50 ml UD PRN IV 03/06/17 16:15 04/05/17 16:14 Glucagon (Glucagon Inj) 1 mg UD PRN SQ 03/06/17 16:15 04/05/17 16:14 Enoxaparin Sodium (Lovenox Inj) 40 mg HS SQ 03/07/17 21:00 04/06/17 20:59 Diphenoxylate HCl/ Atropine (Lomotil Tab) 2 tab Q4H PRN PO 03/07/17 09:15 04/06/17 09:14 Vital Signs: Date Time Temp Pulse Resp B/P (MAP) Pulse Ox O2 Delivery O2 Flow Rate FiO2 03/07/17 06:00 49 15 109/68 (82) 99 Room Air 03/07/17 04:00 Room Air 03/07/17 04:00 36.9 52 14 117/71 (86) 97 Room Air 03/07/17 02:00 49 14 113/62 (79) 98 Room Air 03/07/17 00:00 36.8 51 16 114/65 (81) 98 Room Air 03/07/17 00:00 Room Air 03/06/17 22:00 59 16 100 03/06/17 22:00 36.8 62 16 125/94 (104) 99 Room Air 03/06/17 20:00 36.7 62 24 110/70 (83) 99 Room Air 03/06/17 20:00 Room Air 03/06/17 18:00 36.6 42 22 114/72 (86) 99 Room Air 03/06/17 16:00 36.6 52 22 109/60 (76) 99 Room Air 03/06/17 16:00 Room Air 03/06/17 14:00 36.6 40 22 104/67 (79) 99 Room Air 03/06/17 13:15 40 13 100 03/06/17 13:02 41 15 98/68 (78) 100 03/06/17 13:00 41 14 99 03/06/17 12:47 39 15 106/62 (77) 97 03/06/17 12:45 40 15 100 03/06/17 12:32 43 27 104/62 (76) 100 03/06/17 12:30 41 16 100 03/06/17 12:17 41 15 88/56 (67) 100 03/06/17 12:15 40 16 99 03/06/17 12:04 44 19 87/54 (65) 98 03/06/17 12:02 43 22 86/53 (64) 99 03/06/17 12:00 37 16 97 03/06/17 11:45 40 14 97 03/06/17 11:32 41 15 89/53 (65) 98 03/06/17 11:30 40 14 98 03/06/17 11:30 Room Air 03/06/17 11:30 36.6 40 22 89/50 (63) 99 Room Air 03/06/17 11:22 42 15 86/54 (65) 98 03/06/17 11:22 42 15 86/54 (65) 98 03/06/17 11:15 41 14 97 03/06/17 11:02 40 15 89/53 (65) 97 03/06/17 11:02 40 15 89/53 (65) 97 03/06/17 11:00 40 17 98 03/06/17 11:00 40 17 98 03/06/17 10:32 39 14 95/58 (70) 98 03/06/17 10:30 39 14 98 03/06/17 10:02 39 18 95/59 (71) 97 03/06/17 10:00 43 14 96 03/06/17 09:32 42 10 110/69 (83) 99 03/06/17 09:30 38 15 99 03/06/17 09:30 36.6 40 22 95/59 (71) 99 Room Air Laboratory Results: Last 24 Hours Test 03/06/17 11:21 03/06/17 15:04 03/06/17 15:38 03/06/17 15:53 Bedside Glucose 76 mg/dl 48 mg/dl 58 mg/dl 79 mg/dl Test 03/07/17 05:13 White Blood Count 3.47 K/uL Red Blood Count 4.13 M/uL Hemoglobin 12.3 g/dL Hematocrit 36.1 % Mean Corpuscular Volume 87.4 fL Mean Corpuscular Hemoglobin 29.8 pg Mean Corpuscular Hemoglobin Concent 34.1 g/dl Platelet Count 120 K/uL Mean Platelet Volume 9.7 fL Neutrophils (%) (Auto) 48.1 % Lymphocytes (%) (Auto) 39.8 % Monocytes (%) (Auto) 10.1 % Eosinophils (%) (Auto) 1.7 % Basophils (%) (Auto) 0.0 % Neutrophils # (Auto) 1.67 K/uL Lymphocytes # (Auto) 1.38 K/uL Monocytes # (Auto) 0.35 K/uL Eosinophils # (Auto) 0.06 K/uL Basophils # (Auto) 0.00 K/uL RDW Standard Deviation 42.0 fL RDW Coefficient of Variation 13.0 % Immature Granulocyte % (Auto) 0.3 % Immature Granulocyte # (Auto) 0.01 K/uL Sodium Level 143 mmol/L Potassium Level 3.7 mmol/L Chloride Level 109 mmol/L Carbon Dioxide Level 32 mmol/L Anion Gap 2.0 mmol/L Blood Urea Nitrogen 5 mg/dl Creatinine 0.53 mg/dl Est Creatinine Clear Calc Drug Dose 191.1 ml/min Estimated GFR () 144.0 Estimated GFR (Non- 124.2 BUN/Creatinine Ratio 9.4 Random Glucose 80 mg/dl Calcium Level 7.8 mg/dl Phosphorus Level 3.3 mg/dl Magnesium Level 2.2 mg/dl Total Bilirubin 0.4 mg/dl Direct Bilirubin 0.1 mg/dl Aspartate Amino Transf (AST/SGOT) 12 U/L Alanine Aminotransferase (ALT/SGPT) 17 U/L Alkaline Phosphatase 94 U/L Total Protein 5.4 gm/dl Albumin 2.6 gm/dl Resident Tracking Resident Involvement: Resident Care Provided Care Provided: Adult Hospital Medicine
[2017-03-07] MEDS: LANSOPRAZOLE SOLUTAB 30 MG NG SCH (10:14)
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
--- NOTE | 2017-03-07 16:33 | Psychiatric Progress Notes ---
Progress Note Date of Service Mar 07, 2017. Interval History Vijay Bower is a 51-year-old male who currently lives in [place] with his partner, Sterling, has a history of bipolar disorder type I, anxiety not otherwise specified, HIV, and illicit substance abuse, and was admitted to the ICU after his partner found him unresponsive at home. Psychiatry was consulted for a question of overdose/suicide attempt. Chief Complaint "I've been better". Subjective Patient was seen & assessed, interval progress reviewed, and case discussed with Dr. Kelly. He is alert and conversant, sitting in the bedside chair. He initially states that he doesn't recall what happened prior to hospitalization, saying the last thing he remembers was "kind of just giving up." He is aware that he was hospitalized Sunday, and states that he argued with his partner Sterling, although he can't recall what they argued about. He says he was already feeling very distraught due to his brother leaving abruptly and issuing a PFA against him, and that he was "trying to do whatever I could to get through to Garrick (his brother), I even said you in email." He had sent a message through the outpatient clinics patient portal stating that he had found out during his PFA court date that his brother was hospitalized on our behavioral health unit, and requesting that this physician relays series of messages to his brother. He was informed that this is inappropriate and illegal , and said "well I figure that, but I had to try." He admits that he took an overdose of multiple substances, which she describes as "everything not nailed down," including his prescription medications, "I took them all." He also admits to taking his partner's opiate pain medications, does not recall specific name. He also admits to taking methamphetamine, but denies taking GHB , MDMA, or other illicit recreational drugs. He states that he intended to when he took the overdose, and is disappointed that he is still alive. He states that he is "already ," and is feeling depressed and distraught about the situation with his brother. He has talked to his partner Sterling and thinks that he will be visiting him soon. He is not sure if the state of their relationship. He says "I just feel like I let everybody down." We reviewed the recommendations for inpatient psychiatric admission, and he states that he does not want to be admitted and just wants to go home. We discussed the difference between a voluntary 201 admission in an involuntary 302 admission, and I advised him that my recommendation is for inpatient treatment once medically stabilized. Mental Status Exam During interview pt is: alert and oriented, cooperative Appearance: disheveled (unkempt) Eye contact is: other (avoids eye contact) Speech: normal in rate, rhythm & volume (nonspontaneous) Affect: mood congruent, depressed, constricted Mood is: depressed Thought process: goal directed, perseveration (on hopelessness) Thought content: cognitive distortions, hopelessness, worthlessness, guilt, self deprecation Suicidal thought are: present (patient admits to an overdose in a suicide attempt, and is disappointed that he survived) Homicidal thoughts are: denied Hallucinations: denies auditory, denies visual Cognition: language grossly intact, other (memory impaired for the events prior to admission, but cannot rule out malingering) Intelligence estimated to be: average Insight: impaired Judgement: impaired Impression 51-year-old partnered white male with a history of bipolar type I, substance abuse, anxiety, and multiple medical problems who presents with altered mental status and unresponsiveness after a polysubstance overdose in a suicide attempt , including his prescribed outpatient medications, opiates, amphetamine/ methamphetamine and possibly MDMA. He is recovering from delirium due to his toxic ingestion, and is being transferred from the ICU to the floor today. He will require inpatient psychiatric treatment once medically stable, and will need to be involuntarily committed if necessary. Plan (1) Overdose Management per primary team. We will continue to follow and assess as he hopefully regains consciousness. Disposition possibilities include inpatient psychiatric treatment if this was a suicide attempt, versus inpatient rehabilitation for worsening substance abuse. 03/06 - discussed medication options with the primary team. Would avoid deliriogenic medications, including benzodiazepines, anticholinergics, and antihistamines, as these could worsen his delirium. Would reserve antipsychotics for episodes of agitation only, and recommend following his QTC with serial EKGs due to the risk of prolonged QTC. 03/07 - now alert and oriented, able to participate in an interview. Admits to intentional overdose in a suicide attempt. Will require inpatient psychiatric treatment once medically stabilized - will need to be eating, drinking, on all oral medication and off IVs, and able to ambulate and toilet independently prior to transfer to the behavioral health unit. He is being transferred from the ICU to the floor today, and may be stable enough to come to the behavioral health unit tomorrow. He has been advised of this recommendation and the difference between a 201 voluntary admission and a 302 involuntary commitment. If he is not willing to sign in voluntarily at the time of medical clearance, he is clearly committable and his mental illness, very serious and nearly lethal suicide attempt, and ongoing suicidality, and should be placed on an involuntary 302 commitment. (2) Polysubstance abuse Drug screen is positive for opiates, amphetamine/methamphetamine, and MDMA. Follow-up on confirmatory results. Attempt to determine what medications were present in his "bug out bag" of medications, as some of these could be part of his toxic ingestion, and he may also have been abusing illicit substances recreationally. He recently admitted to regular methamphetamine use, and also has a history of cocaine abuse. Would not recommend that he be prescribed any controlled substances outside the hospital, and will not resume clonazepam on discharge. I suspect that he was minimizing his substance abuse when it was last discussed at his outpatient appointment, as his significant other also reported the patient has been experimenting with GHB. 03/06 - patient still nonverbal and unable to provide information. I have asked the psychiatric liaison nurse to speak with his partner to get collateral information about what substances he has been abusing and how frequently, and any details he may know about the concoction of medications he put together. 03/07 - patient admits to intentionally overdosing on multiple substances, including his outpatient prescription medications, his partner's opiate pain medications, and methamphetamine. We will need to continue to monitor for any signs of withdrawal. I suspect he has minimized the extent of his substance abuse. (3) Anxiety Hold scheduled psychotropic medications due to altered mental status, including duloxetine, and consider restarting it once he stabilizes. 03/07 - I would like to hold off on resuming any psychotropic medications until he is admitted psychiatrically, as he has not had a robust response to any of the medications he has been prescribed, and it would be beneficial to reevaluate his medication regimen prior to resuming anything. (4) Bipolar 1 disorder Hold lithium, Latuda, and duloxetine; consider restarting them as he regains consciousness. 03/06 - patient had been on multiple mood stabilizing and antipsychotic agents as an outpatient with limited efficacy. I would hold off on restarting any of his scheduled psychotropics until his delirium has resolved. Visit Code E&M Code: 00987 Risk Factors Assessment Male: Yes : Yes /single/: No Higher / Fall in social status: No Access to guns: No Health problems: Yes Mental Health Diagnoses: Yes Substance use disorders: Yes Previous attempt: Yes Previous attempt;highly lethal: Yes Previous attempt; didn't tell: Yes Previous psychiatric stay: Yes Hopelessness: Yes Protective Factors Assessment : No Responsible for young children: No Employed: No Stable relationships: No Supportive family: No Good rapport with provider: Yes Data Vital Signs Last 24 Hrs: Date Time Temp Pulse Resp B/P (MAP) Pulse Ox O2 Delivery O2 Flow Rate FiO2 03/07/17 15:27 36.7 70 19 109/75 (86) 100 03/07/17 12:53 59 14 120/71 (87) 99 Room Air 03/07/17 12:00 Room Air 03/07/17 12:00 36.6 74 17 99 Room Air 03/07/17 10:02 74 16 123/86 (98) 100 Room Air 03/07/17 08:02 50 13 127/77 (94) 100 Room Air 03/07/17 08:00 Room Air 03/07/17 08:00 Room Air 03/07/17 06:00 49 15 109/68 (82) 99 Room Air 03/07/17 04:00 Room Air 03/07/17 04:00 36.9 52 14 117/71 (86) 97 Room Air 03/07/17 02:00 49 14 113/62 (79) 98 Room Air 03/07/17 00:00 36.8 51 16 114/65 (81) 98 Room Air 03/07/17 00:00 Room Air 03/06/17 22:00 59 16 100 03/06/17 22:00 36.8 62 16 125/94 (104) 99 Room Air 03/06/17 20:00 36.7 62 24 110/70 (83) 99 Room Air 03/06/17 20:00 Room Air 03/06/17 18:00 36.6 42 22 114/72 (86) 99 Room Air Meds Administered Last 24 Hrs: Meds Administered (Past 24Hrs) Medications (Trade) Dose Ordered Sig/Anthony Route Start Time Stop Time Status Last Admin Dose Admin Dextrose (Dextrose 50% 50ML Syringe) 50 ml STK-MED ONCE .ROUTE 03/06/17 00:46 03/06/17 00:47 DC 03/06/17 01:00 50 ML Dexmedetomidine HCl 200 mcg/ Sodium Chloride 50 ml @ 0 mls/hr Q0M PRN IV 03/06/17 01:30 03/07/17 08:17 DC 03/06/17 11:25 11.5 MLS/HR Haloperidol Lactate (Haldol Inj) Max 20mg per 24 hours -... Q1H PRN IV 03/06/17 12:00 04/05/17 11:59 03/06/17 20:39 5 MG Potassium Chloride/Dextrose/ Sod Cl 1,000 ml @ 50 mls/hr Q20H IV 03/06/17 15:30 04/05/17 15:29 03/07/17 13:21 50 MLS/HR Dextrose (Dextrose 50% 50ML Syringe) 50 ml STK-MED ONCE .ROUTE 03/06/17 15:10 03/06/17 15:11 DC 03/06/17 15:10 50 ML Diphenoxylate HCl/ Atropine (Lomotil Tab) 2 tab Q4H PRN PO 03/07/17 12:45 04/06/17 12:44 03/07/17 13:21 2 TAB Lab Results Last 24 Hrs: Last 24 Hours Test 03/07/17 05:13 White Blood Count 3.47 K/uL Red Blood Count 4.13 M/uL Hemoglobin 12.3 g/dL Hematocrit 36.1 % Mean Corpuscular Volume 87.4 fL Mean Corpuscular Hemoglobin 29.8 pg Mean Corpuscular Hemoglobin Concent 34.1 g/dl Platelet Count 120 K/uL Mean Platelet Volume 9.7 fL Neutrophils (%) (Auto) 48.1 % Lymphocytes (%) (Auto) 39.8 % Monocytes (%) (Auto) 10.1 % Eosinophils (%) (Auto) 1.7 % Basophils (%) (Auto) 0.0 % Neutrophils # (Auto) 1.67 K/uL Lymphocytes # (Auto) 1.38 K/uL Monocytes # (Auto) 0.35 K/uL Eosinophils # (Auto) 0.06 K/uL Basophils # (Auto) 0.00 K/uL RDW Standard Deviation 42.0 fL RDW Coefficient of Variation 13.0 % Immature Granulocyte % (Auto) 0.3 % Immature Granulocyte # (Auto) 0.01 K/uL Sodium Level 143 mmol/L Potassium Level 3.7 mmol/L Chloride Level 109 mmol/L Carbon Dioxide Level 32 mmol/L Anion Gap 2.0 mmol/L Blood Urea Nitrogen 5 mg/dl Creatinine 0.53 mg/dl Est Creatinine Clear Calc Drug Dose 191.1 ml/min Estimated GFR () 144.0 Estimated GFR (Non- 124.2 BUN/Creatinine Ratio 9.4 Random Glucose 80 mg/dl Calcium Level 7.8 mg/dl Phosphorus Level 3.3 mg/dl Magnesium Level 2.2 mg/dl Total Bilirubin 0.4 mg/dl Direct Bilirubin 0.1 mg/dl Aspartate Amino Transf (AST/SGOT) 12 U/L Alanine Aminotransferase (ALT/SGPT) 17 U/L Alkaline Phosphatase 94 U/L Total Protein 5.4 gm/dl Albumin 2.6 gm/dl
[2017-03-07] MEDS ORDERED: ENOXAPARIN 40 MG/0.4 ML SYR SQ SCH (21:00)
[2017-03-08 04:00] VITALS: O2SAT 98
[2017-03-08 04:04] VITALS: BP 122/75; PULSE 64; TEMP 36.6; O2SAT 98
[2017-03-08 05:55] LABS: BASO % 0.3 %; BASO ABS # 0.01 K/uL (0-0.2); COMPLETE YES; EOS % 1.7 %; HEMATOCRIT 36.1 % (42-52); LYMPH % 49.9 %; LYMPH ABS # 1.74 K/uL (1.2-3.4); MEAN CORPUSCULAR HEMOGLOBIN 30.1 pg (25-34); MEAN CORPUSCULAR HGB CONC 34.6 g/dl (32-36); MEAN PLATELET VOLUME 9.6 fL (7.4-10.4); MONO % 9.5 %; NEUT % 38.6 %; PLATELET COUNT 125 K/uL (130-400); RED BLOOD COUNT 4.15 M/uL (4.7-6.1); WHITE BLOOD COUNT 3.49 K/uL (4.8-10.8)
[2017-03-08 06:25] LABS: BUN/CREATININE RATIO 14.5 (10-20); CREATININE 0.48 mg/dl (0.60-1.40); MAGNESIUM 2.2 mg/dl (1.8-2.4); POTASSIUM 3.6 mmol/L (3.5-5.1)
[2017-03-08 06:28] LABS: PHOSPHORUS 3.5 mg/dl (2.5-4.9)
[2017-03-08 07:06] LABS: CALCIUM 8.5 mg/dl (8.5-10.1)
[2017-03-08 07:48] VITALS: BP 133/81; PULSE 71; TEMP 36.9; O2SAT 98
--- NOTE | 2017-03-08 08:41 | Discharge Instructions ---
Discharge Instructions Date of Service Mar 08, 2017. Admission Reason for Admission: Unresponsive Discharge Discharge Diagnosis / Problem: Unresponsive episode due to toxic encephalopathy , intentional overdose Discharge Goals Goal(s): Improve disease control, Therapeutic intervention (mental health admission) Activity Recommendations Activity Limitations: resume your previous activity Lifting Limitations: none Exercise/Sports Limitations: as tolerated May Resume Sexual Activity: when tolerated Shower/Bathe: no limitations Driving or Machine Use: no limitations . Instructions / Follow-Up Instructions / Follow-Up Medications: can continue his prior medications, will defer psychiatric medications to psychiatry Current Hospital Diet Patient's current hospital diet: Regular Diet Discharge Diet Recommended Diet: Regular Diet Pending Studies Studies pending at discharge: no Laboratory Results Lipid Panel Test 01/18/17 11:26 Range/Units Triglycerides Level 83 0-150 mg/dl Cholesterol Level 148 0-200 mg/dl HDL Cholesterol 54 mg/dl Cholesterol/HDL Ratio 2.7 LDL Cholesterol, Calculated 77 mg/dl Medical Emergencies . Who to Call and When: Medical Emergencies: If at any time you feel your situation is an emergency, please call 911 immediately. . Non-Emergent Contact Non-Emergency issues call your: Primary Care Provider Call Non-Emergent contact if: you have any medication questions . . "Provider Documentation" section prepared by Leon Pantoja. . VTE Core Measure Inpt VTE Proph given/why not?: SCD's [place] Drug Monitoring Program Search Results: no issues identified
[2017-03-08] MEDS ORDERED: SIMETHICONE 80 MG CHEW PO PRN (08:45)
[2017-03-08] MEDS ORDERED: DIPHENOXYLATE/ATROPINE 2.5/0.025MG TAB PO PRN (08:45)
[2017-03-08] MEDS ORDERED: ASCORBIC ACID 500 MG TAB PO SCH (09:00)
[2017-03-08] MEDS ORDERED: TOCOPHERYL, DL-ALPHA 400 INTER.UNIT CAP PO SCH (09:00)
[2017-03-08] MEDS ORDERED: CHOLECALCIFEROL 1000 INTER.UNIT TAB PO SCH (09:00)
[2017-03-08] MEDS ORDERED: AMLODIPINE BESYLATE 5 MG TAB PO SCH (09:00)
[2017-03-08] MEDS ORDERED: PANTOprazole SOD 40 MG TAB PO SCH (09:00)
[2017-03-08] MEDS ORDERED: CYANOCOBALAMIN 500 MCG TAB (VIT B-12) PO SCH (09:00)
[2017-03-08] MEDS ORDERED: EMTRICITABINE/TENOFOVIR TAB PO SCH (09:00)
[2017-03-08] MEDS: LANSOPRAZOLE SOLUTAB 30 MG NG SCH (09:38)
[2017-03-08 10:13] VITALS: BP 133/81; PULSE 71; TEMP 36.9; O2SAT 98
[2017-03-08] MEDS ORDERED: DOLUTEGRAVIR SODIUM 50 MG PO SCH (11:00)
--- NOTE | 2017-03-08 11:19 | Discharge Summary ---
Discharge Summary Date of Service Mar 08, 2017. Discharge Summary Admission Date: Mar 05, 2017 at 03:05 Discharge Date: Mar 08, 2017 Discharge Disposition: Acute care mental health Principal Diagnosis: Toxic encephalopathy, suspected overdose Problems/Secondary Diagnoses: Bipolar disorder, depression, suicidal ideation Bradycardia Diarrhea HIV Immunizations: Have You Had Influenza Vaccine: No History of Tetanus Vaccine?: Yes Tetanus Immunization Date: Jun 20, 2011 History of Pneumococcal: Yes Pneumococcal Date: Jun 20, 2011 History of Hepatitis B Vaccine: Yes Hepatitis Immunization Date: Jun 20, 2011 Procedures: Intubation and mechanical ventilation EEG Consultations: ICU Neurology Psychiatry Medication Reconciliation Continued Medications: Acetaminophen (Tylenol) 500 Mg Tab 1000 MG PO Q4 PRN for Pain or Fever, TAB Amlodipine (Norvasc) 5 Mg Tab 5 MG PO QAM Ascorbic Acid (Vitamin C) 500 Mg Tab 1 TAB PO BID B-Complex Vitamins (Vitamin B Complex) 1 Tab Tab 1 TABS PO DAILYBB Biotin (Biotin) 1 Mg Cap 1 TAB PO QAM Calcium/Vitamin D (Os-Bharath 500 Plus D) Tab 1 TAB PO QPM, TAB Cholecalciferol (Vitamin D3) 1,000 Unit Tab 1 TAB PO QAM Cholecalciferol (Vitamin D3 400) 400 Unit Cap 400 UNIT PO DAILY Cyanocobalamin (Vitamin B12) 1,000 Mcg Tab 1 TAB PO BID Diphenoxylate/Atropine (Lomotil) Tab 1-2 TAB PO Q4H PRN for Diarrhea, TAB Dolutegravir Sodium (Tivicay) 50 Mg Tab 50 MG PO QAM Emtricitabine/Temofovir (Truvada 200/300MG) Tab 1 TABLET PO QAM Furosemide (Furosemide) 20 Mg Tab 20 MG PO DAILY Ketoconazole (Topical) (Ketoconazole) 2 % Sha 1 APPLN TOP DAILY, 3 Refills facial wash Loratadine (Claritin) 10 Mg Tab 10 MG PO QAM, TAB Methocarbamol (Methocarbamol) 750 Mg Tab 750 MG PO TID Methylcellulose (Laxative) (Citrucel) 500 Mg Tab 500 MG PO QID Misc Natural Products (Ginkgo Biloba) 1 Tab Tab 120 MG PO QAM Misc Natural Products (Osteo Bi-Flex Advanced Tr) 1 Tab Tab 1 TAB PO DAILY Multiple Vitamins W/ Minerals (Multi Adult Gummies) 1 Chw Chw 1 TAB PO BID Pantoprazole (Pantoprazole Sodium) 40 Mg Tab 40 MG PO DAILY Potassium Gluconate (Potassium Gluconate) 550 Mg Tab 550 MG PO DAILY Probiotic Product (Probiotic) 1 Tab Tab 1 TAB PO QPM Simethicone (Gas-X) 80 Mg Chw 80 MG PO QID PRN for Gas or Constipation Terbinafine Hcl (Terbinafine Hcl) 250 Mg Tab 1 TAB PO QAM Vitamin E (E-400) 400 Unit Cap 400 UNIT PO BID Zinc Gluconate (Zinc) 50 Mg Tab 50 MG PO DAILY Discontinued Medications: Clonazepam (Klonopin) 1 Mg Tab 1 MG PO BID PRN for Anxiety, TAB Duloxetine HCl (Duloxetine HCl) 60 Mg Cap 120 MG PO DAILY [place] Carbonate ([place] Carbonate ER) 300 Mg Tab 1 TAB PO QAM [place] Carbonate ([place] Carbonate ER) 300 Mg Tab 2 TAB PO QPM, 2 Refills Lurasidone Hcl (Latuda) 120 Mg Tab 120 MG PO QPM TAKWE WITH EVENING MEAL Ropinirole (Requip) 3 Mg Tab 3 MG PO QPM, TAB TAKE THIS MED 2 HOURS BEFORE BEDTIME Tramadol (Ultram) 50 Mg Tab 50-100 MG PO DAILY PRN for Pain, TAB Discharge Exam Patient resting comfortably today, no issues overnight, very pleasant and cooperative and he is going for inpatient mental health admission. Main concern is getting a hold of partner to bring in clothes. Still with diarrhea, this is a chronic issue for him. Review of Systems: Constitutional: + weakness, + fatigue, No fever, No chills, No sweats, No weight loss, No problem reported Eyes: No worsening of vision, No eye pain, No redness, No discharge, No diplopia, No problem reported ENT: No hearing loss, No unusual epistaxis, No nasal symptoms, No sore throat, No tinnitus, No dental problems, No trouble swallowing, No problem reported Respiratory: No cough, No sputum, No wheezing, No shortness of breath, No dyspnea on exertion, No dyspnea at rest, No hemoptysis, No problem reported Cardiovascular: No chest pain, No orthopnea, No PND, No edema, No claudication, No palpitations, No problem reported Abdomen: + diarrhea, No pain, No nausea, No vomiting, No constipation, No GI bleeding, No problem reported Musculoskeletal: No joint pain, No muscle pain, No swelling, No calf pain, No problem reported Genitourinary - Male: No hematuria, No dysuria, No urinary frequency, No urinary urgency Neurologic: + memory loss (surrounding time of admission), No paralysis, No weakness, No numbness/tingling, No vertigo, No balance problems, No problem reported Psychiatric: + depression symptoms, + anxiety, No anhedonism, No insomnia, No substance abuse, No problem reported Endocrine: No fatigue, No excessive thirst, No excessive urination, No problem reported Hematologic / Lymphatic: No abnormal bleeding/bruising, No clotting problems , No swollen lymph nodes, No night sweats, No problem reported Integumentary: No rash, No itch, No new/changing skin lesions, No color change, No bleeding, No problem reported Physical Exam: General Appearance: WD/WN, no apparent distress Eyes: normal inspection, EOMI, sclerae normal ENT: normal ENT inspection, hearing grossly normal, pharynx normal Neck: supple, no adenopathy, no JVD, trachea midline Respiratory/Chest: chest non-tender, lungs clear, normal breath sounds, no respiratory distress, no accessory muscle use Cardiovascular: regular rate, rhythm, no edema, no gallop, no JVD, no murmur , normal peripheral pulses Abdomen / GI: normal bowel sounds, non tender, soft, no organomegaly Extremities: normal inspection, no calf tenderness, normal capillary refill , no pedal edema, normal range of motion, pelvis stable Neurologic/Psychiatric: loop sewer II-XII nml as tested, no motor/sensory deficits , alert, normal mood/affect, normal reflexes, oriented x 3 Skin: normal color, warm/dry, no rash Lymphatic: no adenopathy Hospital Course 51 yo male with unresponsive episode, possible toxic ingestion, possible intentional overdose/suicide - Unresponsive, toxic encephalopathy: now awake and speaking clearly, calm no need for any sedation in the past 24 hours cannot recall events that lead to admission says that he may have taken overdose vitals stable, labs normal accepted for inpatient mental health this AM, will discharge to their service - QT prolongation: serial EKGs show that the QT is shortening, the prolongation likely caused from ingestion - HIV: partner to bring in HIV medications - Bipolar, depression, possible suicide attempt: psychiatry following, recommend inpatient mental health stay, transfer to today defer psychiatric medications to their judgement d/c to inpatient mental health Total Time Spent: Less than 30 minutes This includes examination of the patient, discharge planning, medication reconciliation, and communication with other providers. Discharge Instructions Please refer to the electronic Patient Visit Report (Discharge Instructions) for additional information. Follow-Up Psychiatry
[2017-03-08] MEDS ORDERED: CALCIUM 600MG + VIT D 400 IU TAB PO SCH (21:00)
[2017-03-09 14:38] LABS: COD UR NEGATIVE NG/ML (CUTOFF=50); HYDROCOD UR NEGATIVE NG/ML (CUTOFF=50); HYDROMOR UR NEGATIVE NG/ML (CUTOFF=50); MORPHINE UR NEGATIVE NG/ML (CUTOFF=50); NORHYDROCODONE CONF UR NEGATIVE NG/ML (CUTOFF=50); OXYMORPH UR 119 NG/ML (CUTOFF=50); SYNTHETIC CANNABINOIDS QL URIN NEGATIVE (Negative)
[2017-03-12] MEDS ORDERED: LTHCR300 PO (10:26)
[2017-03-12] MEDS ORDERED: DULO60CA44 PO (10:27)
== END 2017-03-08 10:58 | DRG 91 ==
LOC: EDBD 23:29 → C.EDB 23:30 → C.MSICU 03-05 03:05 → ENRESERV 03-05 03:37 → C.2T 03-07 19:03
PROVIDERS: ADMIT Internal Medicine; ATTEND Internal Medicine
PROC: 0BH17EZ Insertion of Endotracheal Airway into Trachea, Via Natural or Artificial Opening (ICD-10-PCS; principal; 2017-03-05)
PROC: 5A1945Z Respiratory Ventilation, 24-96 Consecutive Hours (ICD-10-PCS; principal; 2017-03-05)
DX: G92 Toxic encephalopathy (principal); J96.02 Acute respiratory failure with hypercapnia; F19.10 Other psychoactive substance abuse, uncomplicated; T50.902A Poisoning by unspecified drugs, medicaments and biological substances, intentional self-harm, initial encounter; Y92.009 Unspecified place in unspecified non-institutional (private) residence as the place of occurrence of the external cause; F31.9 Bipolar disorder, unspecified; R00.1 Bradycardia, unspecified; I45.81 Long QT syndrome; F41.9 Anxiety disorder, unspecified; G25.81 Restless legs syndrome; D64.9 Anemia, unspecified; G89.29 Other chronic pain; M54.9 Dorsalgia, unspecified; R68.0 Hypothermia, not associated with low environmental temperature; E66.9 Obesity, unspecified; E87.6 Hypokalemia; G62.9 Polyneuropathy, unspecified; I10 Essential (primary) hypertension; Z98.84 Bariatric surgery status; Z91.5 Personal history of self-harm; Z79.899 Other long term (current) drug therapy; Z68.30 Body mass index [BMI] 30.0-30.9, adult; Z21 Asymptomatic human immunodeficiency virus [HIV] infection status; Z79.891 Long term (current) use of opiate analgesic

== ENCOUNTER 2017-03-08 11:00 | Inpatient (IN) | payer OTHER ==
[~2017-03-08] VITALS: Ht 177.8 cm; Wt 90.4 kg
[~2017-03-08 11:00] MED LIST changes: +B-COTAB18 PO; +CHOL400C PO; +CYAN100020 PO; +CYM60 PO; -DULO60CA44 PO; -FERR1TAB23 PO; -FRS/40 PO; -GLUCTAB7 PO; -IMD/2 PO; -KRIL1CAP3 PO; +LSX20 PO; +LTHCR300 PO; -LTHSR/300 PO; -METH-307 PO; +METH500T3 PO; +MISCTAB29 PO; +POTA550T4 PO; +PRT/40 PO; +RBX750 PO; +SIME80CH PO; +TRAM-10 PO; +TYLOTC500 PO; +ZINC1TAB PO; -ZINC1TAB4 PO
[2017-03-08] MEDS ORDERED: SIMETHICONE 80 MG CHEW PO PRN (11:30)
[2017-03-08 11:42] VITALS: BP 110/73; PULSE 71; TEMP 36.5; Ht 177.8 cm; Wt 90.4 kg
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
[2017-03-08] MEDS ORDERED: DULOXETINE HCL 20 MG CAP PO ONE (12:43)
--- NOTE | 2017-03-08 12:51 | Medical Consult ---
Consultation Date of Consultation: Mar 08, 2017. Attending Physician: Birgit Sanchez MD Reason for Consultation: HIV meds History of Present Illness Patient is a 51 yo male admitted to the hospital for concerns of drug overdose. He was brought to the ED by EMS. According to records, the patients partner Sterling found the patient in his room and unable to arouse following an argument that they had previously. Upon arrival, the patient was unresponsive and was intubated. He had a urine tox screen that showed opiates, amphetamine/ methamphetamine, and MDMA. The patient does have recent history of suicidal ideation. The patient does also have history of HIV for which he has been on PO Truvada and Tivicay for multiple years. In January, the patient had a mild increase in his serum HIV viral load and decrease in his CD4 count. He was continued on his previous regimen at that time. Upon examination, the patient is very lethargic and answers minimal questions. He states that he has been on HIV medication for a few weeks, but really he has been on these medications for multiple years after review of his outpatient chart. He states that he has been slightly nauseated, but otherwise ROS is limited due to patient lethargy. Past Medical/Surgical History Medical Problems: (1) Acute anxiety Status: Acute (2) Altered mental status Status: Acute (3) Depression Status: Acute (4) Depression Status: Acute (5) Emotional crisis as acute reaction to exceptional (gross) stress Status: Acute (6) Polysubstance abuse Status: Acute (7) Suicidal ideation Status: Acute Medical Problems: (1) Borderline personality disorder (2) Human Immunodeficiency Virus [Hiv] Disease (3) Hyperlipidemia Nec/Nos (4) Hypertension Nos (5) Kidney stones (6) Methamphetamine abuse (7) Overdose (8) Peripheral neuropathy (9) Pneumonia (10) Restless leg syndrome (11) Suicide attempt by multiple drug overdose (12) Unresponsive Surgical Problems: (1) H/O gastric bypass Family History Cancer Diabetes mellitus FH ischemic heart disease FH: arthritis FH: seizures Hypertension Lung disease Other cardiovascular diseases Trach/bronchog mal Noncontributory Social History Smoking Status: Never Smoker Drug Use: none Marital Status: in relationship Housing Status: lives with significant other Occupation Status: unemployed Allergies Coded Allergies: Mercury (Verified Allergy, Intermediate, Facial swelling, N/V, 03/05/17) "mercury, as in seafood, eye gtts, etc." Home Medications Reported Home Medications Medications Dose Route/Sig Max Daily Dose Days Date Category Dose Instructions Tylenol (Acetaminophen) 500 Mg Tab 1,000 Mg PO Q4 PRN 03/05/17 Reported Zinc (Zinc Gluconate) 50 Mg Tab 50 Mg PO DAILY 03/05/17 Reported Vitamin D3 400 (Cholecalciferol) 400 Unit Cap 400 Unit PO DAILY 03/05/17 Reported Vitamin B12 (Cyanocobalamin) 1,000 Mcg Tab 1 Tab PO BID 03/05/17 Reported Vitamin B Complex (B-Complex Vitamins) 1 Tab Tab 1 Tabs PO DAILYBB 03/05/17 Reported Potassium Gluconate 550 Mg Tab 550 Mg PO DAILY 03/05/17 Reported Osteo Bi-Flex Advanced Tr ([facility] Natural Products) 1 Tab Tab 1 Tab PO DAILY 03/05/17 Reported Citrucel (Methylcellulose (Laxative)) 500 Mg Tab 500 Mg PO QID 03/05/17 Reported Gas-X (Simethicone) 80 Mg Chw 80 Mg PO QID PRN 03/05/17 Reported Pantoprazole Sodium (Pantoprazole) 40 Mg Tab 40 Mg PO DAILY 03/05/17 Reported Furosemide 20 Mg Tab 20 Mg PO DAILY 03/05/17 Reported Methocarbamol 750 Mg Tab 750 Mg PO TID 03/05/17 Reported Lomotil (Diphenoxylate HCl/Atropine) Tab 1-2 Tab PO Q4H PRN 07/17/16 Reported Claritin (Loratadine) 10 Mg Tab 10 Mg PO QAM 07/17/16 Reported Norvasc (Amlodipine Besylate) 5 Mg Tab 5 Mg PO QAM 07/17/16 Reported Ginkgo Biloba ([facility] Natural Products) 1 Tab Tab 120 Mg PO QAM 07/17/16 Reported Biotin 1 Mg Cap 1 Tab PO QAM 07/17/16 Reported Vitamin D3 (Cholecalciferol) 1,000 Unit Tab 1 Tab PO QAM 07/17/16 Reported Probiotic (Probiotic Product) 1 Tab Tab 1 Tab PO QPM 07/17/16 Reported Os-Bharath 500 Plus D (Calcium/Vitamin D) Tab 1 Tab PO QPM 07/17/16 Reported E-400 (Vitamin E) 400 Unit Cap 400 Unit PO BID 07/17/16 Reported Vitamin C (Ascorbic Acid) 500 Mg Tab 1 Tab PO BID 07/17/16 Reported Multi Adult Gummies (Multiple Vitamins W/ Minerals) 1 Chw Chw 1 Tab PO BID 07/17/16 Reported Ketoconazole (Ketoconazole (Topical)) 2 % Sha 1 Appln TOP DAILY 07/07/16 Reported facial wash Tivicay (Dolutegravir Sodium) 50 Mg Tab 50 Mg PO QAM 07/07/16 Reported Terbinafine Hcl 250 Mg Tab 1 Tab PO QAM 07/07/16 Reported Truvada 200/300MG (Emtricitabine/Tenofovir) Tab 1 Tablet PO QAM 06/20/13 Reported Current Inpatient Medications Current Inpatient Medications Medications (Trade) Dose Ordered Sig/Anthony Route Start Time Stop Time Status Last Admin Dose Admin Amlodipine Besylate (Norvasc Tab) 5 mg QAM PO 03/09/17 09:00 04/08/17 08:59 Ascorbic Acid (Vitamin C Tab) 500 mg BID PO 03/08/17 22:00 04/07/17 21:59 Calcium/Vitamin D (Caltrate Plus Tab) 1 tab QPM PO 03/08/17 21:00 04/07/17 20:59 Cholecalciferol (Vitamin D Tab) 1,000 inter.unit QAM PO 03/09/17 09:00 04/08/17 08:59 Diphenoxylate HCl/ Atropine (Lomotil Tab) 1 tab Q4H PRN PO 03/08/17 11:30 04/07/17 11:29 Emtricitabine/ Tenofovir (Truvada 200-300mg Tab) 1 tab QAM PO 03/09/17 09:00 04/08/17 08:59 Furosemide (Lasix Tab) 20 mg DAILY PO 03/09/17 09:00 04/08/17 08:59 Loratadine (Claritin Tab) 10 mg QAM PO 03/09/17 09:00 04/08/17 08:59 Pantoprazole Sodium (Protonix Tab) 40 mg DAILY PO 03/09/17 09:00 04/08/17 08:59 Simethicone (Mylicon Chew Tab) 80 mg QID PRN PO 03/08/17 11:30 04/07/17 11:29 [id number] Acetate (Vitamin E Cap) 400 interunit BID PO 03/08/17 22:00 04/07/17 21:59 Non-Formulary Medication (Dolutegravir Sodium (Tivicay)) 50 mg QAM PO 03/09/17 09:00 04/08/17 08:59 UNV Review of Systems ROS limited due to patient state Physical Exam Date Time Temp Pulse Resp B/P (MAP) Pulse Ox O2 Delivery O2 Flow Rate FiO2 03/08/17 11:42 36.5 71 16 110/73 General Appearance: WD/WN, + mild distress Head: normocephalic, atraumatic Eyes: normal inspection ENT: hearing grossly normal Neck: supple Respiratory/Chest: no respiratory distress, no accessory muscle use Cardiovascular: + pertinent finding (regular rate) Extremities/Musculoskelatal: normal range of motion Neurologic/Psych: + disoriented, + pertinent finding (lethargic) Skin: normal color Assessment & Plan Patient with Bipolar disorder admitted to the Behavioral Health Unit who also has HIV infection. He is currently on PO Truvada and Tivicay and has been for multiple years. He continues to tolerate these medications well and has been well-controlled on them from an HIV stand-point. Will continue therapy while inpatient. PROVIDER ADDENDUM: Patient examined and reviewed with Ms. Saunders. Agree with above assessment. Patient has been off his HIV medication for probably 6 months, need to re- establish capacity to be compliant with his regimen as likely to have treatment become less effective with resistance unless able to take medications appropriately. Discussed with Psychiatry.
[2017-03-08] MEDS ORDERED: SODIUM CHLORIDE 0.65% NA SOLN 45 ML (OCEAN) PRN (13:00)
[2017-03-08] MEDS ORDERED: MAGNESIUM HYDROXIDE SUSP 30 ML UDC PO PRN (13:00)
[2017-03-08] MEDS ORDERED: ALUMINUM/MAGNESIUM SUSP 30 ML UDC PO PRN (13:00)
[2017-03-08] MEDS ORDERED: BISMUTH SUBSALICYLATE PER ML OMNICELL CHARGE PO PRN (13:00)
[2017-03-08] MEDS ORDERED: hydrOXYzine HCL 25 MG TAB PO PRN (13:00)
[2017-03-08] MEDS ORDERED: ACETAMINOPHEN 325 MG TAB PO PRN (13:00)
[2017-03-08] MEDS: CALCIUM 600MG + VIT D 400 IU TAB PO SCH (21:10)
[2017-03-08] MEDS: TOCOPHERYL, DL-ALPHA 400 INTER.UNIT CAP PO SCH (21:11)
[2017-03-08] MEDS: LITHIUM CARBONATE SR 300 MG TAB (LITHOBID) PO SCH (21:11)
[2017-03-08] MEDS: ASCORBIC ACID 500 MG TAB PO SCH (21:11)
[2017-03-09 06:46] VITALS: BP_SYST 108; BP_SYST 135; BP_DIAS 69; BP_DIAS 82; PULSE 57; PULSE 66; TEMP 37
[2017-03-09] MEDS: LORATADINE 10 MG TAB PO SCH (08:25)
[2017-03-09] MEDS: AMLODIPINE BESYLATE 5 MG TAB PO SCH (08:25)
[2017-03-09] MEDS: PANTOprazole SOD 40 MG TAB PO SCH (08:25)
[2017-03-09] MEDS: TOCOPHERYL, DL-ALPHA 400 INTER.UNIT CAP PO SCH ×2 (08:25→21:10)
[2017-03-09] MEDS: FUROSEMIDE 20 MG TAB PO SCH (08:25)
[2017-03-09] MEDS: DULOXETINE HCL 20 MG CAP PO SCH (08:25)
[2017-03-09] MEDS: ASCORBIC ACID 500 MG TAB PO SCH ×2 (08:25→21:10)
[2017-03-09] MEDS: CHOLECALCIFEROL 1000 INTER.UNIT TAB PO SCH (08:25)
[2017-03-09] MEDS: EMTRICITABINE/TENOFOVIR TAB PO SCH (08:26)
[2017-03-09] MEDS: DOLUTEGRAVIR SODIUM 50 MG TAB PO SCH (08:27)
[2017-03-09] MEDS: DIPHENOXYLATE/ATROPINE 2.5/0.025MG TAB PO PRN ×2 (10:20→17:45)
--- NOTE | 2017-03-09 12:39 | Psychiatric Progress Notes ---
Progress Note Date of Service Mar 09, 2017. Interval History 51 yo male with bipolar disorder, HIV positivity, transferred voluntarily from the medical floor when he had been on a vent after a toxic ingestion of multiple medications and street drugs, in a suicide attempt. Stressors include a disabled brother who has filed a PFA, relationship stress with his partner. Chief Complaint "Difficult.". Subjective Patient was seen & assessed interval progress reviewed with Treatment Team. The patient says that his mood remains depressed about the state of his life. He says that in groups, they are touching on "sensitive subjects" like family issues that are difficult for him to deal with. He says that he feels overwhelmed with his life and has no idea how to manage it or work toward making things better with his brother. We discuss his chronic attachment to SI and developing the perfect drug OD, as a commitment to and not to life. ' My life is a great mess right now.". Despite that, he remains committed to going to rehab, saying he knows that its necessary, but says that his partner Sterling needs it just as badly as he does. He is reporting problems with his restless legs that made it hard to sleep last night and is again asking to have it back. His suicidality is chronic, and he says that he thinks he is able to go to rehab as soon as a bed is found, even if its today. He denies aud/vis hallucinations. Review of Systems Constitutional: + fatigue ENT: No hearing loss, No unusual epistaxis, No nasal symptoms, No sore throat, No tinnitus, No dental problems, No trouble swallowing, No problem reported Respiratory: No cough, No sputum, No wheezing, No shortness of breath, No dyspnea on exertion, No dyspnea at rest, No hemoptysis, No problem reported Cardiovascular: No chest pain, No orthopnea, No PND, No edema, No claudication , No palpitations, No problem reported Abdomen: No pain, No nausea, No vomiting, No diarrhea, No constipation, No GI bleeding, No problem reported Musculoskeletal: No joint pain, No muscle pain, No swelling, No calf pain, No problem reported Neurologic: + problem reported (restless legs) Psychiatric: + depression symptoms, + insomnia, + substance abuse Integumentary: No rash, No itch, No new/changing skin lesions, No color change , No bleeding, No problem reported Sleep Information Total Hours of Sleep: 4.75 Meal Information Percent of Breakfast Consumed: 100 Percent of Lunch Consumed: 90 Percent of Dinner Consumed: 100 Mental Status Exam During interview pt is: alert and oriented, cooperative Appearance: appropriately dressed, appropriately groomed, other (numerous tattoos) Eye contact is: good Motor behavior is: steady gait & station, no abnormal motor movements Speech: normal in rate, rhythm & volume Affect: mood congruent, depressed, tearful, anxious, constricted Mood is: depressed, anxious Thought process: goal directed Thought content: reality based without delusions Suicidal thought are: present Homicidal thoughts are: denied Hallucinations: denies auditory, denies visual Intelligence estimated to be: average Insight: impaired Judgement: impaired Impression Adjusting to the unit. Remains committed to rehab as soon as a bed can be found. he has been started back on his HIV meds, which he has been on for years , and psych meds have been adjusted. His suicidality is chronic, as are his psychosocial stressors, and not likely to resolve in the context of a short term hospitalization. We are prioritizing the treatment of his substance use issues which has also been chroni, and lead to destabilization of his bipolar disorder. [place] level scheduled for Sunday. We are awaiting responses from multiple rehab referrals. Plan (1) Overdose 03/08 - last EKG from yesterday showed sinus bradycardia with a QTC of 412. It is still not entirely clear what medications he overdosed on, that he had access to clonazepam, opiate pain medications, lurasidone, lithium, duloxetine, Trivicay, Truvada, Lomotil, methocarbamol, amlodipine, furosemide, loratadine, and multiple vitamins. He was also abusing illicit substances recreationally ( meth, ?GHB and/or MDMA, opiates). -Robaxin discontinued due to risk in OD - Will need to coordinate with OP prescriber, Dr. Luque. (2) Suicidal ideation Every 15 minute checks for safety. Encourage group attendance and participation; work on healthy coping skills and discharge safety plan. Will need a robust outpatient safety plan to include keeping medications locked and dispensing them daily (indefinitely due to repeated episodes with the patient has put together a "suicide bag" of pills), avoidance of all controlled substances, coordination of care with all outpatient prescribing physicians, and family meeting involving his support system. He denies access to guns, and we should confirm this with his partner. Will ask partner to bring in all of his home medications so that discontinued or old ones can be disposed of safely , and to limit access to large amounts of pills. (3) Bipolar 1 disorder Home medications including lithium, Latuda, and duloxetine were held after his overdose and while in the ICU. He has been on multiple mood stabilizing and antipsychotic agents as an outpatient with limited efficacy. - Reviewed past med trials, patient feels duloxetine and lithium are most helpful. Will resume home dose of lithium ER 900mg qhs (consolidating to bedtime to limit risk to kidneys and improve compliance). Resume duloxetine 20mg daily, titrate as tolerated. - Most recent fasting lipid profile from 01/18/2017 reviewed and were normal. 03/09 - Continue current meds - [place] level on Sunday - Encourage patient to focus on life issues and away from his commitment to a back door suicide plan (4) Anxiety Clonazepam discontinued and will not resume benzos due to ongoing substance abuse and overdose. Hydroxyzine prn. (5) Methamphetamine abuse Drug screen is positive for opiates, amphetamine/methamphetamine, and MDMA. Follow-up on confirmatory results - still pending. He recently admitted to regular methamphetamine use, and also has a history of cocaine abuse. Would not recommend that he be prescribed any controlled substances outside the hospital, and will not resume clonazepam on discharge. I suspect that he was minimizing his substance abuse when it was last discussed at his outpatient appointment, as his significant other also reported the patient has been experimenting with GHB. Will need to coordinate with all OP providers (Drs. Chaidez, Chalino, and Daniel) so they are aware of these issues. 03/08 - Recommend inpatient rehab to address ongoing substance abuse. Patient advised successful completion of rehab will be a requirement of continued OP treatment with this provider. Coordinated care with therapist, who agrees with substance abuse treatment. (6) Borderline personality disorder Patient has been advised that it is inappropriate for him to ask staff or other patients questions about his brother's recent treatment here. He continues to perseverate on this, and may require additional redirection. (7) Human Immunodeficiency Virus [Hiv] Disease Resume home medications and consult Dr. Chaidez. I spoke with him and he is aware that patient has been noncompliant with his HIV medications. (8) Hypertension Nos Continue home doses of amlodipine and furosemide. (9) Peripheral neuropathy Return to neurologist. (10) Restless leg syndrome Requip discontinued while on medical floor. Will need to coordinate care with Dr. Sanchez, neurology, and arrange OP f/u. Called Dr. Sanchez's clinic and left my number for call back to coordinate care and recs re: Requip, which patient is asking to resume. 03/09 - RLS impairing sleep. He is on no meds that would interfere with Requip and so will restart. Discharge / Aftercare Planning Primary Care Physician: Name: [facility] Therapist: Name: Erika Singh at [facility] Visit Code E&M Code: 71393 Inventory Assets Strengths: Has outpatient providers and stable housing Risk Factors Assessment Male: Yes : Yes /single/: No Higher / Fall in social status: No Health problems: Yes Mental Health Diagnoses: Yes Substance use disorders: Yes Previous attempt: Yes Previous attempt;highly lethal: Yes Previous attempt; didn't tell: Yes Previous psychiatric stay: Yes Hopelessness: Yes Smoker: No Protective Factors Assessment Yazdanism beliefs: No : No Responsible for young children: No Employed: No Stable relationships: Yes Supportive family: No Good rapport with provider: Yes Data Vital Signs Last 24 Hrs: Date Time Temp Pulse Resp B/P (MAP) Pulse Ox O2 Delivery O2 Flow Rate FiO2 03/09/17 06:46 37.0 57 18 135/82 66 108/69 Meds Administered Last 24 Hrs: Meds Administered (Past 24Hrs) Medications (Trade) Dose Ordered Sig/Anthony Route Start Time Stop Time Status Last Admin Dose Admin Amlodipine Besylate (Norvasc Tab) 5 mg QAM PO 03/09/17 09:00 04/08/17 08:59 03/09/17 08:25 5 MG Ascorbic Acid (Vitamin C Tab) 500 mg BID PO 03/08/17 22:00 04/07/17 21:59 03/09/17 08:25 500 MG Calcium/Vitamin D (Caltrate Plus Tab) 1 tab QPM PO 03/08/17 21:00 04/07/17 20:59 03/08/17 21:10 1 TAB Cholecalciferol (Vitamin D Tab) 1,000 inter.unit QAM PO 03/09/17 09:00 04/08/17 08:59 03/09/17 08:25 1,000 INTER.UNIT Diphenoxylate HCl/ Atropine (Lomotil Tab) 1 tab Q4H PRN PO 03/08/17 11:30 04/07/17 11:29 03/09/17 10:20 1 TAB Emtricitabine/ Tenofovir (Truvada 200-300mg Tab) 1 tab QAM PO 03/09/17 09:00 04/08/17 08:59 03/09/17 08:26 1 TAB Furosemide (Lasix Tab) 20 mg DAILY PO 03/09/17 09:00 04/08/17 08:59 03/09/17 08:25 20 MG Loratadine (Claritin Tab) 10 mg QAM PO 03/09/17 09:00 04/08/17 08:59 03/09/17 08:25 10 MG Pantoprazole Sodium (Protonix Tab) 40 mg DAILY PO 03/09/17 09:00 04/08/17 08:59 03/09/17 08:25 40 MG uj-Wjido-Lkuxbrfchs Acetate (Vitamin E Cap) 400 interunit BID PO 03/08/17 22:00 04/07/17 21:59 03/09/17 08:25 400 INTERUNIT [place] Carbonate (Lithobid Tab) 900 mg HS PO 03/08/17 22:00 04/07/17 21:59 03/08/17 21:11 900 MG Duloxetine HCl (Cymbalta Cap) 20 mg QAM PO 03/09/17 09:00 04/08/17 08:59 03/09/17 08:25 20 MG Duloxetine HCl (Cymbalta Cap) 20 mg 1243 ONCE PO 03/08/17 12:43 03/08/17 12:47 DC 03/08/17 13:17 20 MG
[2017-03-09] MEDS: ROPINIROLE HCL 1 MG TAB PO SCH (20:19)
[2017-03-09] MEDS: CALCIUM 600MG + VIT D 400 IU TAB PO SCH (21:09)
[2017-03-09] MEDS: LITHIUM CARBONATE SR 300 MG TAB (LITHOBID) PO SCH (21:10)
[2017-03-10 06:45] VITALS: BP_SYST 118; BP_SYST 128; BP_DIAS 79; BP_DIAS 82; PULSE 62; PULSE 77; TEMP 36.8
--- NOTE | 2017-03-10 08:22 | Psychiatric Progress Notes ---
Progress Note Date of Service Mar 10, 2017. Interval History 51 yo male with bipolar disorder, HIV positivity, transferred voluntarily from the medical floor when he had been on a vent after a toxic ingestion of multiple medications and street drugs, in a suicide attempt. Stressors include a disabled brother who has filed a PFA, relationship stress with his partner. Chief Complaint "Very anxious, worried about a lot of different things". Subjective Patient was seen & assessed interval progress reviewed with nursing. Staff report he is attending programming and participating appropriately. He remains willing for rehab and there may be a bed at [facility] for Sunday. His partner still has not brought his medications in, and told staff that there are copious medications at home that will need to be disposed of. Today he says he "really wanted to talk to you today...I'm having a lot of anxiety, worrying about a lot of things, couldn't sleep, concentrating is difficult I feel like there's an electric charge going through it." He is worried about his multiple stressors, including his legal problems, PFA hearing, rehab, and relationship issues. He is aware that he may be able to go to rehab as early as Sunday, and says "I know that I need to go, I know that I need help." He then proceeds to give multiple reasons why he is reluctant to go, as he doesn't want to miss his hearing with his brother and worries about his home. He spends much of the interview time attempting to convince this physician that he doesn't need rehab. His mood remains poor, anxious, and distraught, overwhelmed and unable to deal with his stressors. He continues to have SI, last night had thoughts that "I screwed things up so bad," but denies that he had a plan or intent. He continues to wish that he would've at times, "I don't know why I'm still here, just don't want to be here anymore, losing everything that I care about." Sleep Information Total Hours of Sleep: 6.00 Meal Information Percent of Breakfast Consumed: 100 Percent of Lunch Consumed: 100 Percent of Dinner Consumed: 100 Mental Status Exam During interview pt is: alert and oriented, cooperative Appearance: appropriately dressed, appropriately groomed, other (numerous tattoos) Eye contact is: good Motor behavior is: steady gait & station, no abnormal motor movements Speech: normal in rate, rhythm & volume Affect: mood congruent, depressed, anxious, constricted, other (Sobbing loudly , but without tears) Mood is: depressed, anxious Thought process: goal directed Thought content: reality based without delusions Suicidal thought are: present, Intent: denied Homicidal thoughts are: denied Hallucinations: denies auditory, denies visual Intelligence estimated to be: average Insight: impaired Judgement: impaired Impression The patient is participating in treatment, and although he initially agreed to recommendations for inpatient rehab, he is now unsure if he will commit that. He has been started back on his HIV meds, which he has been on for years, and psych meds have been adjusted and streamlined. His suicidality is chronic, as are his psychosocial stressors, and not likely to resolve in the context of a short term hospitalization. We are prioritizing the treatment of his substance use issues which has also been chronic and which he has hidden from his outpatient providers, and lead to destabilization of his bipolar disorder. Devol level scheduled for Sunday. Plan (1) Overdose 03/08 - last EKG from yesterday showed sinus bradycardia with a QTC of 412. It is still not entirely clear what medications he overdosed on, that he had access to clonazepam, opiate pain medications, lurasidone, lithium, duloxetine, Trivicay, Truvada, Lomotil, methocarbamol, amlodipine, furosemide, loratadine, and multiple vitamins. He was also abusing illicit substances recreationally ( meth, ?GHB and/or MDMA, opiates). -Robaxin discontinued due to risk in OD - Will need to coordinate with OP prescriber, Dr. Luque. (2) Suicidal ideation Every 15 minute checks for safety. Encourage group attendance and participation; work on healthy coping skills and discharge safety plan. Will need a robust outpatient safety plan to include keeping medications locked and dispensing them daily (indefinitely due to repeated episodes with the patient has put together a "suicide bag" of pills), avoidance of all controlled substances, coordination of care with all outpatient prescribing physicians, and family meeting involving his support system. He denies access to guns, and we should confirm this with his partner. Will ask partner to bring in all of his home medications so that discontinued or old ones can be disposed of safely , and to limit access to large amounts of pills. 03/10 - schedule family meeting with partner Sterling, and staff to contact partner to bring in all home medications so that he will not have access to a large amount of pills given the risk of overdose and . (3) Bipolar 1 disorder Home medications including lithium, Latuda, and duloxetine were held after his overdose and while in the ICU. He has been on multiple mood stabilizing and antipsychotic agents as an outpatient with limited efficacy. - Reviewed past med trials, patient feels duloxetine and lithium are most helpful. Will resume home dose of lithium ER 900mg qhs (consolidating to bedtime to limit risk to kidneys and improve compliance). Resume duloxetine 20mg daily, titrate as tolerated. - Most recent fasting lipid profile from 01/18/2017 reviewed and were normal. 03/09 - Continue current meds - Devol level on Sunday - Encourage patient to focus on life issues and away from his commitment to a back door suicide plan 03/10 - Patient endorses suicidal thoughts last evening the context of worrying about his stressors, but feels safe in the hospital. - Encourage him to continue working on healthy coping skills and strongly encourage commitment to inpatient rehabilitation to allow better chance for recovery and stabilization. - Increase duloxetine to 40 mg daily. (4) Anxiety Resume duloxetine. Clonazepam discontinued and will not resume benzos due to ongoing substance abuse and overdose. Hydroxyzine prn. 03/10 - increase duloxetine 40 mg daily. Encourage the patient to work on healthy coping skills and behavioral techniques for managing his anxiety, which is largely driven by his numerous psychosocial stressors and his own choices. (5) Methamphetamine abuse Drug screen is positive for opiates, amphetamine/methamphetamine, and MDMA. Follow-up on confirmatory results - still pending. He recently admitted to regular methamphetamine use, and also has a history of cocaine abuse. Would not recommend that he be prescribed any controlled substances outside the hospital, and will not resume clonazepam on discharge. I suspect that he was minimizing his substance abuse when it was last discussed at his outpatient appointment, as his significant other also reported the patient has been experimenting with GHB. Will need to coordinate with all OP providers (Drs. Chaidez, Chalino, and Daniel) so they are aware of these issues. 03/08 - Recommend inpatient rehab to address ongoing substance abuse. Patient advised successful completion of rehab will be a requirement of continued OP treatment with this provider. Coordinated care with therapist, who agrees with substance abuse treatment. 03/10 - Patient had agreed to rehabilitation, and referrals are in place. He is now unsure if he is willing to engage with this treatment recommendation, and was informed that my recommendation won't change, and it will give him the best chance of achieving and maintaining stability. If he ultimately refuses this treatment recommendation, I have informed him that I'll continue to see him for the next 30 days as an outpatient, but he will then need to transfer his care to another psychiatrist. I have encouraged him to consider his options and to discuss with his partner, as I feel he would be best served with inpatient rehabilitation. (6) Borderline personality disorder Patient has been advised that it is inappropriate for him to ask staff or other patients questions about his brother's recent treatment here. He continues to perseverate on this, and may require additional redirection. (7) Human Immunodeficiency Virus [Hiv] Disease Resume home medications and consult Dr. Chaidez. I spoke with him and he states that the patient has been noncompliant with his HIV medications. (8) Hypertension Nos Continue home doses of amlodipine and furosemide. (9) Peripheral neuropathy Return to neurologist. (10) Restless leg syndrome Requip discontinued while on medical floor. Will need to coordinate care with Dr. Sanchez, neurology, and arrange OP f/u. Called Dr. Sanchez's clinic and left my number for call back to coordinate care and recs re: Requip, which patient is asking to resume. 03/09 - RLS impairing sleep. He is on no meds that would interfere with Requip and so will restart. He will need follow-up with Dr. Sanchez, and we will need to send records to coordinate care. Discharge / Aftercare Planning Primary Care Physician: Name: Dr Tapia Phone Number: [phone] Appointment Notes: as needed Psychiatrist: Name: Dr Birgit Sanchez - [facility] Phone Number: [phone] Appointment Notes: schedule towards the end of your rehab stay Therapist: Name: Erika valentino [facility] Phone Number: [phone] Appointment Notes: schedule towards the end of your rehab stay Traffic Rate Computer: Name: Kimberly Sharp Phone Number: [phone] Appointment Notes: schedule towards the end of your rehab stay Specialist: Name: [facility] Phone Number: [phone] Appointment Notes: schedule towards the end of your rehab stay Other: Name of Appointment #1: Jeffry Guerrero in [facility] Phone Number: [phone] Appointment #1 Notes: discharged to inpatient rehab Visit Code E&M Code: 19100 Inventory Assets Strengths: Has outpatient providers and stable housing Risk Factors Assessment Male: Yes : Yes /single/: No Higher / Fall in social status: No Health problems: Yes Mental Health Diagnoses: Yes Substance use disorders: Yes Previous attempt: Yes Previous attempt;highly lethal: Yes Previous attempt; didn't tell: Yes Previous psychiatric stay: Yes Hopelessness: Yes Smoker: No Protective Factors Assessment Holiness beliefs: No : No Responsible for young children: No Employed: No Stable relationships: Yes Supportive family: No Good rapport with provider: Yes Data Vital Signs Last 24 Hrs: Date Time Temp Pulse Resp B/P (MAP) Pulse Ox O2 Delivery O2 Flow Rate FiO2 03/10/17 06:45 36.8 62 16 128/82 77 118/79 Meds Administered Last 24 Hrs: Meds Administered (Past 24Hrs) Medications (Trade) Dose Ordered Sig/Anthony Route Start Time Stop Time Status Last Admin Dose Admin Amlodipine Besylate (Norvasc Tab) 5 mg QAM PO 03/09/17 09:00 04/08/17 08:59 03/09/17 08:25 5 MG Ascorbic Acid (Vitamin C Tab) 500 mg BID PO 03/08/17 22:00 04/07/17 21:59 03/09/17 21:10 500 MG Calcium/Vitamin D (Caltrate Plus Tab) 1 tab QPM PO 03/08/17 21:00 04/07/17 20:59 03/09/17 21:09 1 TAB Cholecalciferol (Vitamin D Tab) 1,000 inter.unit QAM PO 03/09/17 09:00 04/08/17 08:59 03/09/17 08:25 1,000 INTER.UNIT Diphenoxylate HCl/ Atropine (Lomotil Tab) 1 tab Q4H PRN PO 03/08/17 11:30 04/07/17 11:29 03/09/17 17:45 1 TAB Emtricitabine/ Tenofovir (Truvada 200-300mg Tab) 1 tab QAM PO 03/09/17 09:00 04/08/17 08:59 03/09/17 08:26 1 TAB Furosemide (Lasix Tab) 20 mg DAILY PO 03/09/17 09:00 04/08/17 08:59 03/09/17 08:25 20 MG Loratadine (Claritin Tab) 10 mg QAM PO 03/09/17 09:00 04/08/17 08:59 03/09/17 08:25 10 MG Pantoprazole Sodium (Protonix Tab) 40 mg DAILY PO 03/09/17 09:00 04/08/17 08:59 03/09/17 08:25 40 MG tk-Ftlfw-Bexdrraguf Acetate (Vitamin E Cap) 400 interunit BID PO 03/08/17 22:00 04/07/17 21:59 03/09/17 21:10 400 INTERUNIT Devol Carbonate (Lithobid Tab) 900 mg HS PO 03/08/17 22:00 04/07/17 21:59 03/09/17 21:10 900 MG Duloxetine HCl (Cymbalta Cap) 20 mg QAM PO 03/09/17 09:00 04/08/17 08:59 03/09/17 08:25 20 MG Duloxetine HCl (Cymbalta Cap) 20 mg 1243 ONCE PO 03/08/17 12:43 03/08/17 12:47 DC 03/08/17 13:17 20 MG Ropinirole HCl (Requip Tab) 3 mg DAILY@1999 PO 03/09/17 20:00 04/08/17 19:59 03/09/17 20:19 3 MG
[2017-03-10] MEDS: DULOXETINE HCL 20 MG CAP PO SCH (08:48)
[2017-03-10] MEDS: LORATADINE 10 MG TAB PO SCH (08:48)
[2017-03-10] MEDS: PANTOprazole SOD 40 MG TAB PO SCH (08:49)
[2017-03-10] MEDS: FUROSEMIDE 20 MG TAB PO SCH (08:49)
[2017-03-10] MEDS: AMLODIPINE BESYLATE 5 MG TAB PO SCH (08:49)
[2017-03-10] MEDS: DOLUTEGRAVIR SODIUM 50 MG TAB PO SCH (08:50)
[2017-03-10] MEDS: CHOLECALCIFEROL 1000 INTER.UNIT TAB PO SCH (08:50)
[2017-03-10] MEDS: EMTRICITABINE/TENOFOVIR TAB PO SCH (08:50)
[2017-03-10] MEDS: TOCOPHERYL, DL-ALPHA 400 INTER.UNIT CAP PO SCH ×2 (08:51→21:06)
[2017-03-10] MEDS: ASCORBIC ACID 500 MG TAB PO SCH ×2 (08:51→21:06)
[2017-03-10] MEDS: DIPHENOXYLATE/ATROPINE 2.5/0.025MG TAB PO PRN (19:51)
[2017-03-10] MEDS: ROPINIROLE HCL 1 MG TAB PO SCH (21:04)
[2017-03-10] MEDS: CALCIUM 600MG + VIT D 400 IU TAB PO SCH (21:04)
[2017-03-10] MEDS: LITHIUM CARBONATE SR 300 MG TAB (LITHOBID) PO SCH (21:05)
[2017-03-10] MEDS: hydrOXYzine HCL 25 MG TAB PO PRN (23:41)
[2017-03-11] MEDS: hydrOXYzine HCL 25 MG TAB PO PRN ×2 (00:20→22:17)
[2017-03-11 06:51] VITALS: BP_SYST 108; BP_SYST 109; BP_DIAS 71; BP_DIAS 72; PULSE 63; PULSE 69; TEMP 36.8
--- NOTE | 2017-03-11 08:03 | Psychiatric Progress Notes ---
Progress Note Date of Service Mar 11, 2017. Interval History 51 yo male with bipolar disorder, HIV positivity, transferred voluntarily from the medical floor when he had been on a vent after a toxic ingestion of multiple medications and street drugs, in a suicide attempt. Stressors include a disabled brother who has filed a PFA, relationship stress with his partner. Chief Complaint "A lot better". Subjective Patient was seen & assessed interval progress reviewed with nursing. Staff report he had been agreeing to inpatient rehab and has a potential bed date tomorrow, but then changed his mind and said he didn't want to go as he wants to get home and take care of his home and pets. He is willing for outpatient treatment. He attended and participated in groups, and had a visit from his partner Sterling last evening. He requested multiple doses of hydroxyzine for sleep, and slept 4.25 hours. Today, he states that "yesterday was a rough day, I decided that I don't want to go to rehab, but today is better, I feel committed." He says he is "relieved" that he decided not to go to rehab, and instead wants to look into outpatient treatment, because "I recognize that I need help, it's what I need to do for me right now." He continues to worry about his house, pets, relationship, and brother, and feels he can't go to rehab as he wants to be able to go home and work on these things. He reports improved mood, and denies SI. He is aware that his partner was to bring in his stash of home meds, and says he thinks he gave some of the meds to "the people at [facility]." He admits to having "a great big tub I keep stuff in" at home. He continues to refuse to reconsider going to rehab, saying "there are too many things I have to do." Sleep Information Total Hours of Sleep: 4.25 Meal Information Percent of Breakfast Consumed: 100 Percent of Lunch Consumed: 100 Percent of Dinner Consumed: 100 Mental Status Exam During interview pt is: alert and oriented, cooperative Appearance: appropriately dressed, appropriately groomed, other (numerous tattoos) Eye contact is: good Motor behavior is: steady gait & station, no abnormal motor movements Speech: normal in rate, rhythm & volume Affect: mood congruent, anxious, other (more reactive today, brighter) Mood is: other ("better today") Thought process: goal directed Thought content: reality based without delusions Suicidal thought are: denied Homicidal thoughts are: denied Hallucinations: denies auditory, denies visual Intelligence estimated to be: average Insight: impaired Judgement: impaired Impression The patient is participating in treatment, and although he initially agreed to recommendations for inpatient rehab, he is now unsure if he will commit that. He has been started back on his HIV meds, which he has been on for years, and psych meds have been adjusted and streamlined. His suicidality is chronic, as are his psychosocial stressors, and not likely to resolve in the context of a short term hospitalization. We are prioritizing the treatment of his substance use issues which has also been chronic and which he has hidden from his outpatient providers, and lead to destabilization of his bipolar disorder. Ravena level scheduled for Sunday. Plan (1) Overdose 03/08 - last EKG from yesterday showed sinus bradycardia with a QTC of 412. It is still not entirely clear what medications he overdosed on, that he had access to clonazepam, opiate pain medications, lurasidone, lithium, duloxetine, Trivicay, Truvada, Lomotil, methocarbamol, amlodipine, furosemide, loratadine, and multiple vitamins. He was also abusing illicit substances recreationally ( meth, ?GHB and/or MDMA, opiates). -Robaxin discontinued due to risk in OD - Will need to coordinate with OP prescriber, Dr. Luque, and send records. (2) Suicidal ideation Every 15 minute checks for safety. Encourage group attendance and participation; work on healthy coping skills and discharge safety plan. Will need a robust outpatient safety plan to include keeping medications locked and dispensing them daily (indefinitely due to repeated episodes with the patient has put together a "suicide bag" of pills), avoidance of all controlled substances, coordination of care with all outpatient prescribing physicians, and family meeting involving his support system. He denies access to guns, and we should confirm this with his partner. Will ask partner to bring in all of his home medications so that discontinued or old ones can be disposed of safely , and to limit access to large amounts of pills. 03/08 - family meeting held with partner Sterling and [facility] special education case manager, and requested partner to bring in all home medications so that he will not have access to a large amount of pills given the risk of overdose and . 03/11 - Partner brought in home meds, will need to review and dispose of discontinued ones prior to discharge. Patient working on safety plan. (3) Bipolar 1 disorder Home medications including lithium, Latuda, and duloxetine were held after his overdose and while in the ICU. He has been on multiple mood stabilizing and antipsychotic agents as an outpatient with limited efficacy. - Reviewed past med trials, patient feels duloxetine and lithium are most helpful. Will resume home dose of lithium ER 900mg qhs (consolidating to bedtime to limit risk to kidneys and improve compliance). Resume duloxetine 20mg daily, titrate as tolerated. - Most recent fasting lipid profile from 01/18/2017 reviewed and were normal. 03/09 - Continue current meds - Ravena level on Sunday - Encourage patient to focus on life issues and away from his commitment to a back door suicide plan 03/10 - Patient endorses suicidal thoughts last evening the context of worrying about his stressors, but feels safe in the hospital. - Encourage him to continue working on healthy coping skills and strongly encourage commitment to inpatient rehabilitation to allow better chance for recovery and stabilization. - Increase duloxetine to 40 mg daily. (4) Anxiety Resume duloxetine. Clonazepam discontinued and will not resume benzos due to ongoing substance abuse and overdose. Hydroxyzine prn. 03/10 - Increase duloxetine 40 mg daily. Encourage the patient to work on healthy coping skills and behavioral techniques for managing his anxiety, which is largely driven by his numerous psychosocial stressors and his own choices. (5) Methamphetamine abuse Drug screen is positive for opiates, amphetamine/methamphetamine, and MDMA. Follow-up on confirmatory results - still pending. He recently admitted to regular methamphetamine use, and also has a history of cocaine abuse. Would not recommend that he be prescribed any controlled substances outside the hospital, and will not resume clonazepam on discharge. I suspect that he was minimizing his substance abuse when it was last discussed at his outpatient appointment, as his significant other also reported the patient has been experimenting with GHB. Will need to coordinate with all OP providers (Drs. Chaidez, Chalino, and Daniel) so they are aware of these issues. 03/08 - Recommend inpatient rehab to address ongoing substance abuse. Patient advised successful completion of rehab will be a requirement of continued OP treatment with this provider. Coordinated care with therapist, who agrees with substance abuse treatment. 03/10 - Patient had agreed to rehabilitation, and referrals are in place. He is now unsure if he is willing to engage with this treatment recommendation, and was informed that my recommendation won't change, and it will give him the best chance of achieving and maintaining stability. If he ultimately refuses this treatment recommendation, I have informed him that I'll continue to see him for the next 30 days as an outpatient, but he will then need to transfer his care to another psychiatrist. I have encouraged him to consider his options and to discuss with his partner, as I feel he would be best served with inpatient rehabilitation. (6) Borderline personality disorder Patient has been advised that it is inappropriate for him to ask staff or other patients questions about his brother's recent treatment here. He continues to perseverate on this, and may require additional redirection. (7) Human Immunodeficiency Virus [Hiv] Disease Resume home medications and consult Dr. Chaidez. I spoke with him and he states that the patient has been noncompliant with his HIV medications. (8) Hypertension Nos Continue home doses of amlodipine and furosemide. 03/11 - Pt requesting furosemide be discontinued, stating he only takes it prn for swelling at home. (9) Peripheral neuropathy Return to neurologist. (10) Restless leg syndrome Requip discontinued while on medical floor. Will need to coordinate care with Dr. Sanchez, neurology, and arrange OP f/u. Called Dr. Sanchez's clinic and left my number for call back to coordinate care and recs re: Requip, which patient is asking to resume. 03/09 - RLS impairing sleep. He is on no meds that would interfere with Requip and so will restart. He will need follow-up with Dr. Sanchez, and we will need to send records to coordinate care. Discharge / Aftercare Planning Primary Care Physician: Name: Dr Tapia Phone Number: [phone] Appointment Notes: as needed Psychiatrist: Name: Dr Birgit Sanchez - [facility] Phone Number: [phone] Date of Appointment: Mar 27, 2017 Time of Appointment: 2:30pm Therapist: Name: Erika Singh at [facility] Phone Number: [phone] Appointment Notes: schedule towards the end of your rehab stay Hot Knife Foxing Cutter: Name: Kimberly Sharp Phone Number: [phone] Appointment Notes: schedule towards the end of your rehab stay Specialist: Name: [facility] - [facility] Phone Number: [phone] Appointment Notes: schedule towards the end of your rehab stay Other: Name of Appointment #1: Jeffry Guerrero in [facility] Phone Number: [phone] Appointment #1 Notes: discharged to inpatient rehab Visit Code E&M Code: 02704 Inventory Assets Strengths: Has outpatient providers and stable housing Risk Factors Assessment Male: Yes : Yes /single/: No Higher / Fall in social status: No Health problems: Yes Mental Health Diagnoses: Yes Substance use disorders: Yes Previous attempt: Yes Previous attempt;highly lethal: Yes Previous attempt; didn't tell: Yes Previous psychiatric stay: Yes Hopelessness: Yes Smoker: No Protective Factors Assessment Rastafarian beliefs: No : No Responsible for young children: No Employed: No Stable relationships: Yes Supportive family: No Good rapport with provider: Yes Data Vital Signs Last 24 Hrs: Date Time Temp Pulse Resp B/P (MAP) Pulse Ox O2 Delivery O2 Flow Rate FiO2 03/11/17 06:51 36.8 63 16 109/72 69 108/71 Meds Administered Last 24 Hrs: Meds Administered (Past 24Hrs) Medications (Trade) Dose Ordered Sig/Anthony Route Start Time Stop Time Status Last Admin Dose Admin Amlodipine Besylate (Norvasc Tab) 5 mg QAM PO 03/09/17 09:00 04/08/17 08:59 03/10/17 08:49 5 MG Cholecalciferol (Vitamin D Tab) 1,000 inter.unit QAM PO 03/09/17 09:00 04/08/17 08:59 03/10/17 08:50 1,000 INTER.UNIT Emtricitabine/ Tenofovir (Truvada 200-300mg Tab) 1 tab QAM PO 03/09/17 09:00 04/08/17 08:59 03/10/17 08:50 1 TAB Furosemide (Lasix Tab) 20 mg DAILY PO 03/09/17 09:00 04/08/17 08:59 03/10/17 08:49 20 MG Loratadine (Claritin Tab) 10 mg QAM PO 03/09/17 09:00 04/08/17 08:59 03/10/17 08:48 10 MG Pantoprazole Sodium (Protonix Tab) 40 mg DAILY PO 03/09/17 09:00 04/08/17 08:59 03/10/17 08:49 40 MG Duloxetine HCl (Cymbalta Cap) 20 mg QAM PO 03/09/17 09:00 03/10/17 10:40 DC 03/10/17 08:48 20 MG Ropinirole HCl (Requip Tab) 3 mg DAILY@1999 PO 03/09/17 20:00 04/08/17 19:59 03/10/17 21:04 3 MG
[2017-03-11] MEDS: TOCOPHERYL, DL-ALPHA 400 INTER.UNIT CAP PO SCH ×2 (08:42→22:00)
[2017-03-11] MEDS: CHOLECALCIFEROL 1000 INTER.UNIT TAB PO SCH (08:42)
[2017-03-11] MEDS: AMLODIPINE BESYLATE 5 MG TAB PO SCH (08:43)
[2017-03-11] MEDS: DOLUTEGRAVIR SODIUM 50 MG TAB PO SCH (08:43)
[2017-03-11] MEDS: DULOXETINE HCL 20 MG CAP PO SCH (08:43)
[2017-03-11] MEDS: FUROSEMIDE 20 MG TAB PO SCH (08:43)
[2017-03-11] MEDS: PANTOprazole SOD 40 MG TAB PO SCH (08:43)
[2017-03-11] MEDS: ASCORBIC ACID 500 MG TAB PO SCH ×2 (08:43→22:00)
[2017-03-11] MEDS: EMTRICITABINE/TENOFOVIR TAB PO SCH (08:43)
[2017-03-11] MEDS: LORATADINE 10 MG TAB PO SCH (08:43)
[2017-03-11] MEDS: DIPHENOXYLATE/ATROPINE 2.5/0.025MG TAB PO PRN ×3 (10:34→22:17)
[2017-03-11] MEDS: ROPINIROLE HCL 1 MG TAB PO SCH (21:58)
[2017-03-11] MEDS: LITHIUM CARBONATE SR 300 MG TAB (LITHOBID) PO SCH (21:59)
[2017-03-11] MEDS: CALCIUM 600MG + VIT D 400 IU TAB PO SCH (21:59)
[2017-03-12 06:35] VITALS: BP_SYST 111; BP_SYST 114; BP_DIAS 71; PULSE 58; PULSE 68; TEMP 37.2
[2017-03-12] MEDS: LORATADINE 10 MG TAB PO SCH (08:32)
[2017-03-12] MEDS: DULOXETINE HCL 20 MG CAP PO SCH (08:32)
[2017-03-12] MEDS: AMLODIPINE BESYLATE 5 MG TAB PO SCH (08:33)
[2017-03-12] MEDS: DOLUTEGRAVIR SODIUM 50 MG TAB PO SCH (08:33)
[2017-03-12] MEDS: PANTOprazole SOD 40 MG TAB PO SCH (08:33)
[2017-03-12] MEDS: EMTRICITABINE/TENOFOVIR TAB PO SCH (08:34)
[2017-03-12] MEDS: ASCORBIC ACID 500 MG TAB PO SCH (08:34)
[2017-03-12] MEDS: CHOLECALCIFEROL 1000 INTER.UNIT TAB PO SCH (08:34)
[2017-03-12] MEDS: TOCOPHERYL, DL-ALPHA 400 INTER.UNIT CAP PO SCH (08:34)
--- NOTE | 2017-03-12 10:16 | Psychiatric Progress Notes ---
Progress Note Date of Service Mar 12, 2017. Interval History 51 yo male with bipolar disorder, HIV positivity, transferred voluntarily from the medical floor when he had been on a vent after a toxic ingestion of multiple medications and street drugs, in a suicide attempt. Stressors include a disabled brother who has filed a PFA, relationship stress with his partner. Chief Complaint "[]". Subjective Patient was seen & assessed interval progress reviewed with [Treatment Team] [ Residential Team Leader] Spoke with patient's partner Sterling who says he is angry at the patient for refusing to go to rehab, and he may end the relationship because of it. He himself has struggled with addiction, and had tried to set up rehab for himself , but the patient would not allow him to go, saying they needed to go together. He says the patient is stubborn and thinks he knows what's best, even though his choices have resulted in his suicide attempt. He has been encouraging him to go to rehab, but doesn't feel he can make him go. He says he is sick of having to deal with his suicide attempts, and doesn't know what else he can do. He says there were less meds than what he'd originally reported that he brought into the hospital because he didn't realize some of the meds were his, he took some to the police station to be disposed of, and some were OTC medications which he locked up in a metal toolbox. He also confirmed there are no guns in the home. Reviewed the recommendations for rehab, but that the patient cannot be forced to go, and that he is requesting discharge. Sleep Information Total Hours of Sleep: 6.50 Meal Information Percent of Breakfast Consumed: 100 Percent of Lunch Consumed: 100 Percent of Dinner Consumed: 100 Mental Status Exam During interview pt is: alert and oriented, cooperative Appearance: appropriately dressed, appropriately groomed, other (numerous tattoos) Eye contact is: good Motor behavior is: steady gait & station, no abnormal motor movements Speech: normal in rate, rhythm & volume Affect: mood congruent, anxious, other (more reactive today, brighter) Mood is: other ("better today") Thought process: goal directed Thought content: reality based without delusions Suicidal thought are: denied Homicidal thoughts are: denied Hallucinations: denies auditory, denies visual Intelligence estimated to be: average Insight: impaired Judgement: impaired Impression The patient is participating in treatment, and although he initially agreed to recommendations for inpatient rehab, he is now unsure if he will commit that. He has been started back on his HIV meds, which he has been on for years, and psych meds have been adjusted and streamlined. His suicidality is chronic, as are his psychosocial stressors, and not likely to resolve in the context of a short term hospitalization. We are prioritizing the treatment of his substance use issues which has also been chronic and which he has hidden from his outpatient providers, and lead to destabilization of his bipolar disorder. Mcclave level scheduled for Sunday. Plan (1) Overdose 03/08 - last EKG from yesterday showed sinus bradycardia with a QTC of 412. It is still not entirely clear what medications he overdosed on, that he had access to clonazepam, opiate pain medications, lurasidone, lithium, duloxetine, Trivicay, Truvada, Lomotil, methocarbamol, amlodipine, furosemide, loratadine, and multiple vitamins. He was also abusing illicit substances recreationally ( meth, ?GHB and/or MDMA, opiates). -Robaxin discontinued due to risk in OD - Will need to coordinate with OP prescriber, Dr. Luque, and send records. (2) Suicidal ideation Every 15 minute checks for safety. Encourage group attendance and participation; work on healthy coping skills and discharge safety plan. Will need a robust outpatient safety plan to include keeping medications locked and dispensing them daily (indefinitely due to repeated episodes with the patient has put together a "suicide bag" of pills), avoidance of all controlled substances, coordination of care with all outpatient prescribing physicians, and family meeting involving his support system. He denies access to guns, and we should confirm this with his partner. Will ask partner to bring in all of his home medications so that discontinued or old ones can be disposed of safely , and to limit access to large amounts of pills. 03/08 - family meeting held with partner Sterling and [facility] director case, and requested partner to bring in all home medications so that he will not have access to a large amount of pills given the risk of overdose and . 03/11 - Partner brought in home meds, will need to review and dispose of discontinued ones prior to discharge. Patient working on safety plan. (3) Bipolar 1 disorder Home medications including lithium, Latuda, and duloxetine were held after his overdose and while in the ICU. He has been on multiple mood stabilizing and antipsychotic agents as an outpatient with limited efficacy. - Reviewed past med trials, patient feels duloxetine and lithium are most helpful. Will resume home dose of lithium ER 900mg qhs (consolidating to bedtime to limit risk to kidneys and improve compliance). Resume duloxetine 20mg daily, titrate as tolerated. - Most recent fasting lipid profile from 01/18/2017 reviewed and were normal. 03/09 - Continue current meds - Mcclave level on Sunday - Encourage patient to focus on life issues and away from his commitment to a back door suicide plan 03/10 - Patient endorses suicidal thoughts last evening the context of worrying about his stressors, but feels safe in the hospital. - Encourage him to continue working on healthy coping skills and strongly encourage commitment to inpatient rehabilitation to allow better chance for recovery and stabilization. - Increase duloxetine to 40 mg daily. (4) Anxiety Resume duloxetine. Clonazepam discontinued and will not resume benzos due to ongoing substance abuse and overdose. Hydroxyzine prn. 03/10 - Increase duloxetine 40 mg daily. Encourage the patient to work on healthy coping skills and behavioral techniques for managing his anxiety, which is largely driven by his numerous psychosocial stressors and his own choices. (5) Methamphetamine abuse Drug screen is positive for opiates, amphetamine/methamphetamine, and MDMA. Follow-up on confirmatory results - still pending. He recently admitted to regular methamphetamine use, and also has a history of cocaine abuse. Would not recommend that he be prescribed any controlled substances outside the hospital, and will not resume clonazepam on discharge. I suspect that he was minimizing his substance abuse when it was last discussed at his outpatient appointment, as his significant other also reported the patient has been experimenting with GHB. Will need to coordinate with all OP providers (Drs. Chaidez, Chalino, and Daniel) so they are aware of these issues. 03/08 - Recommend inpatient rehab to address ongoing substance abuse. Patient advised successful completion of rehab will be a requirement of continued OP treatment with this provider. Coordinated care with therapist, who agrees with substance abuse treatment. 03/10 - Patient had agreed to rehabilitation, and referrals are in place. He is now unsure if he is willing to engage with this treatment recommendation, and was informed that my recommendation won't change, and it will give him the best chance of achieving and maintaining stability. If he ultimately refuses this treatment recommendation, I have informed him that I'll continue to see him for the next 30 days as an outpatient, but he will then need to transfer his care to another psychiatrist. I have encouraged him to consider his options and to discuss with his partner, as I feel he would be best served with inpatient rehabilitation. (6) Borderline personality disorder Patient has been advised that it is inappropriate for him to ask staff or other patients questions about his brother's recent treatment here. He continues to perseverate on this, and may require additional redirection. (7) Human Immunodeficiency Virus [Hiv] Disease Resume home medications and consult Dr. Chaidez. I spoke with him and he states that the patient has been noncompliant with his HIV medications. (8) Hypertension Nos Continue home doses of amlodipine and furosemide. 03/11 - Pt requesting furosemide be discontinued, stating he only takes it prn for swelling at home. (9) Peripheral neuropathy Return to neurologist. (10) Restless leg syndrome Requip discontinued while on medical floor. Will need to coordinate care with Dr. Sanchez, neurology, and arrange OP f/u. Called Dr. Sanchez's clinic and left my number for call back to coordinate care and recs re: Requip, which patient is asking to resume. 03/09 - RLS impairing sleep. He is on no meds that would interfere with Requip and so will restart. He will need follow-up with Dr. Sanchez, and we will need to send records to coordinate care. Discharge / Aftercare Planning Primary Care Physician: Name: Dr Tapia Phone Number: [phone] Date of Appointment: May 21, 2017 Time of Appointment: 2:20pm Appointment Notes: . Psychiatrist: Name: Dr Birgit Sanchez - [facility] Phone Number: [phone] Date of Appointment: Mar 27, 2017 Time of Appointment: 2:30pm Appointment Notes: schedule towards the end of your rehab stay Therapist: Name: Erika valentino [facility] Phone Number: [phone] Date of Appointment: Apr 04, 2017 Time of Appointment: 9:00am Appointment Notes: schedule towards the end of your rehab stay Section Hand Helper: Name: Kimberly Sharp Phone Number: [phone] Appointment Notes: schedule towards the end of your rehab stay Neurologist: Name: Dr Sanchez Date of Appointment: Jun 05, 2017 Time of Appointment: 11:20pm Specialist: Name: [facility] Mazin Lei Phone Number: [phone] Appointment Notes: schedule towards the end of your rehab stay Other: Name of Appointment #1: Dr Chaidez Date of Appointment #1: May 15, 2017 Time of Appointment #1: 4:15pm Appointment #1 Notes: discharged to inpatient rehab Inventory Assets Strengths: Has outpatient providers and stable housing Risk Factors Assessment Male: Yes : Yes /single/: No Higher / Fall in social status: No Health problems: Yes Mental Health Diagnoses: Yes Substance use disorders: Yes Previous attempt: Yes Previous attempt;highly lethal: Yes Previous attempt; didn't tell: Yes Previous psychiatric stay: Yes Hopelessness: Yes Smoker: No Protective Factors Assessment Jain beliefs: No : No Responsible for young children: No Employed: No Stable relationships: Yes Supportive family: No Good rapport with provider: Yes Data Vital Signs Last 24 Hrs: Date Time Temp Pulse Resp B/P (MAP) Pulse Ox O2 Delivery O2 Flow Rate FiO2 03/12/17 06:35 37.2 58 16 111/71 68 114/71 Meds Administered Last 24 Hrs: Meds Administered (Past 24Hrs) Medications (Trade) Dose Ordered Sig/Anthony Route Start Time Stop Time Status Last Admin Dose Admin Duloxetine HCl (Cymbalta Cap) 40 mg QAM PO 03/11/17 09:00 04/08/17 08:59 03/12/17 08:32 40 MG Lab Results Last 24 Hrs: Last 24 Hours Test 03/12/17 08:49 Mcclave Level 0.6 mMOL/L
[2017-03-12] MEDS ORDERED: LTHCR300 PO (10:26)
[2017-03-12] MEDS ORDERED: DULO60CA44 PO (10:27)
--- NOTE | 2017-03-12 10:50 | Discharge Instructions ---
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 mood and affect improved, and over the last several days in the unit he consistently denied suicidal thoughts. He was making plans for the future, and was anxious to be discharged. Day of discharge assessment: Spoke with patient's partner Sterling who says he is angry at the patient for refusing to go to rehab, and he may end the relationship because of it. He himself has struggled with addiction, and had tried to set up rehab for himself , but the patient would not allow him to go, saying they needed to go together. He says the patient is stubborn and thinks he knows what's best, even though his choices have resulted in his suicide attempt. He has been encouraging him to go to rehab, but doesn't feel he can make him go. He says he is sick of having to deal with his suicide attempts, and doesn't know what else he can do. He says there were less meds than what he'd originally reported that he brought into the hospital because he didn't realize some of the meds were his, he took some to the police station to be disposed of, and some were OTC medications which he locked up in a metal toolbox. He also confirmed there are no guns in the home. Reviewed the recommendations for rehab, but that the patient cannot be forced to go, and that he is requesting discharge. The patient states that his mood is significantly improved from admission, rating it a 7 or 8 out of 10. He denies any suicidal thoughts, and is able to review the healthy coping skills he's been working on here and his discharge safety plan. He is willing to follow-up with intensive outpatient substance abuse treatment, as well as therapy and psychiatric follow-up. Had a nancy discussion with him about my concerns about his substance abuse, noncompliance with medications, and the general chaos in his life. Also informed him that I spoke with his significant other Sterling, who shares these concerns, and is very upset with the patient for changing his mind and refusing to go to rehabilitation. He remains unwilling to reconsider inpatient substance abuse treatment. We reviewed all of his medications, including that all controlled substances have been stopped, and that he should avoid these in the future. We reviewed his current doses of lithium and duloxetine, and the plan for outpatient follow-up. He is able to review his plans after discharge, is forward thinking and making plans for the future. He denies side effects to medications and denies any concerns with discharge. He is requesting to be discharged this morning, and his significant other is going to pick him up. Well nourished, well developed WM appearing stated age. Casually dressed and adequately groomed. Calm and cooperative. Seated in NAD, with fair eye contact and no abnormal movements. Speech is normal rate, volume, and tone. Mood is "better," and affect is stable and congruent. Thoughts are linear, logical and goal directed. The patient denied suicidal and homicidal ideation and was able to safety plan. No paranoia, delusions, or hallucinations, and did not appear to be responding to internal stimuli. Cognition was grossly intact. Alert and oriented to person, place and time. Intelligence is consistent with level of education. Insight and and judgment are fair. Laboratory Test 03/12/17 08:49 Al[place] Level 0.6 Total Time Total Time Spent (min): Greater than 30 minutes Total Time Included: examination of the patient, discharge planning, medication reconciliation, communication with other providers, and ( communication with the patient's significant other ) Tobacco Cessation at Discharge Smoking Status: Never Smoker FDA approved Prescription: non-smoker
[2017-03-12] MEDS ORDERED: DESTROY THIS MEDICATION ONE ×3 (11:00→13:40)
== END 2017-03-12 17:40 | disposition home or self-care (01) | DRG 885 ==
LOC: C.MHU 11:00
PROVIDERS: ADMIT Psychiatry & Neurology Psychiatry; ATTEND Psychiatry & Neurology Psychiatry
DX: F31.9 Bipolar disorder, unspecified (principal); B20 Human immunodeficiency virus [HIV] disease; R45.851 Suicidal ideations; F41.1 Generalized anxiety disorder; Z91.14 Patient's other noncompliance with medication regimen; G62.9 Polyneuropathy, unspecified; G25.81 Restless legs syndrome; I10 Essential (primary) hypertension; E78.5 Hyperlipidemia, unspecified; G47.00 Insomnia, unspecified; F60.3 Borderline personality disorder; F15.10 Other stimulant abuse, uncomplicated; F19.10 Other psychoactive substance abuse, uncomplicated; Z98.84 Bariatric surgery status; Z87.442 Personal history of urinary calculi; Z87.01 Personal history of pneumonia (recurrent); Z91.048 Other nonmedicinal substance allergy status; Z79.899 Other long term (current) drug therapy; Z80.9 Family history of malignant neoplasm, unspecified; Z83.3 Family history of diabetes mellitus; Z82.49 Family history of ischemic heart disease and other diseases of the circulatory system; Z82.0 Family history of epilepsy and other diseases of the nervous system; Z82.61 Family history of arthritis; Z83.6 Family history of other diseases of the respiratory system; Z81.8 Family history of other mental and behavioral disorders

== ENCOUNTER 2017-03-21 13:20 | Inpatient (IN) | payer OTHER ==
[~2017-03-21] VITALS: Ht 177.8 cm; Wt 89.9 kg
[~2017-03-21 13:20] MED LIST changes: -CLON1TAB3 PO; -CYM60 PO; +DULO60CA44 PO; -LURA1TAB2 PO; -RBX750 PO; -ROPI3TAB PO; -TRAM-10 PO
[2017-03-21] MEDS ORDERED: NALOXONE HCL 0.4 MG/1 ML VIAL/CARP ONE (13:50)
[2017-03-21] MEDS ORDERED: SODIUM CHLORIDE 0.9% 1000ML 1,000 ML IV STA (13:53)
[2017-03-21] MEDS ORDERED: SODIUM CHLORIDE 0.9% 500ML 500 ML IV STA (13:53)
[2017-03-21] MEDS ORDERED: RAPID SEQUENCE INDUCTION BAG ONE (13:59)
[2017-03-21 14:17] LABS: HEMATOCRIT 38.9 % (42-52); MEAN CELL VOLUME 86.3 fL (80-100); MEAN CORPUSCULAR HEMOGLOBIN 30.2 pg (25-34); PLATELET COUNT 150 K/uL (130-400); RED BLOOD COUNT 4.51 M/uL (4.7-6.1)
[2017-03-21 14:28] LABS: INR 1.1 (0.9-1.1); PARTIAL THROMBOPLASTIN RATIO 1.1; PROTHROMBIN TIME (PATIENT) 11.6 SECONDS (9.0-12.0)
[2017-03-21 14:36] LABS: ALT/SGPT 37 U/L (12-78); BLOOD UREA NITROGEN 11 mg/dl (7-18); BUN/CREATININE RATIO 12.4 (10-20); CALCIUM 9.3 mg/dl (8.5-10.1); CARBON DIOXIDE 28 mmol/L (21-32); CHLORIDE 107 mmol/L (98-107); CREATININE 0.85 mg/dl (0.60-1.40); GLUCOSE 84 mg/dl (70-99); MAGNESIUM 2.5 mg/dl (1.8-2.4); POTASSIUM 3.2 mmol/L (3.5-5.1); SODIUM 142 mmol/L (136-145)
[2017-03-21 14:43] LABS: URINE APPEARANCE CLEAR (CLEAR); URINE BILIRUBIN NEG (NEG); URINE COLOR YELLOW; URINE NITRITE NEG (NEG); URINE PH 6.5 (4.5-7.5); URINE SPECIFIC GRAVITY 1.011 (1.000-1.030); UROBILINOGEN NEG (NEG)
[2017-03-21 14:45] LABS: LITHIUM 0.7 mMOL/L (0.6-1.2)
[2017-03-21 14:47] LABS: ALB/GLOB RATIO 1.1 (0.9-2); ALKALINE PHOSPHATASE 138 U/L (45-117); AST/SGOT 16 U/L (15-37)
[2017-03-21 14:49] LABS: BENZODIAZEPINE, URINE NEG (NEG); COCAINE,URINE NEG (NEG); PHENCYCLIDINE, URINE NEG (NEG)
[2017-03-21 14:49] LABS: ACETAMINOPHEN < 2 ug/ml (10-30)
--- NOTE | 2017-03-21 14:50 | DIAGNOSTIC IMAGING REPORT ---
CHEST ONE VIEW PORTABLE CLINICAL HISTORY: Overdose dyspnea COMPARISON STUDY: 03/05/2017 FINDINGS: The bones soft tissues and hemidiaphragms are normal. The cardiomediastinal silhouette is normal. The lungs are clear. The pulmonary vasculature is normal. IMPRESSION: Negative chest. Electronically signed by: Ramón Ashton M.D. 03/21/2017 2:49 PM Dictated Date/Time: 03/21/2017 2:47 PM
--- NOTE | 2017-03-21 14:55 | EMERGENCY ROOM VISIT NOTE ---
History Report prepared by Asael: Henry Pop Under the Supervision of: Dr. Jefferson Lee M.D. First contact with patient: 13:47 Chief Complaint: OVERDOSE (ACCIDENTAL) Stated Complaint: OVERDOSE Nursing Triage Summary: see triage note History of Present Illness The patient is a 51 year old male who presents to the Emergency Room via EMS with complaints of unresponsiveness. The patient was found on the floor by his friends. They were unsure of the type of drug overdose. As per police report, the patient has a history of overdose and treatment. The patient is currently only responding to pain. He did not have a vomiting episode. HPI is limited secondary to unresponsiveness. Additional history is obtained as per Emergency Room nursing staff. Source of History: nursing staff History Limited By: other (unresponsiveness) Position: other (global) Quality: other (unresponsiveness) Associated Symptoms: No vomiting Review of Systems ROS is limited secondary to unresponsiveness. Past Medical & Surgical Medical Problems: (1) Borderline personality disorder (2) Human Immunodeficiency Virus [Hiv] Disease (3) Hyperlipidemia Nec/Nos (4) Hypertension Nos (5) Kidney stones (6) Methamphetamine abuse (7) Overdose (8) Peripheral neuropathy (9) Pneumonia (10) Restless leg syndrome (11) Suicide attempt by multiple drug overdose (12) Unresponsive Surgical Problems: (1) H/O gastric bypass Family History Cancer Diabetes mellitus FH ischemic heart disease FH: arthritis FH: seizures Hypertension Lung disease Other cardiovascular diseases Trach/bronchog mal Social History Smoking Status: Unknown if Ever Smoked Alcohol Use: none Drug Use: none Marital Status: in relationship Housing Status: lives with significant other Occupation Status: unemployed Current/Historical Medications Scheduled Amlodipine (Norvasc), 5 MG PO QAM Ascorbic Acid (Vitamin C), 1 TAB PO BID B-Complex Vitamins (Vitamin B Complex), 1 TABS PO DAILYBB Biotin (Biotin), 1,000 MCG PO QAM Calcium/Vitamin D (Os-Bharath 500 Plus D), 1 TAB PO QPM Cholecalciferol (Vitamin D3), 1 TAB PO QAM Cholecalciferol (Vitamin D3 400), 400 UNIT PO DAILY Cyanocobalamin (Vitamin B-12), 1,000 MCG PO BID Dolutegravir Sodium (Tivicay), 50 MG PO QAM Duloxetine Hcl (Cymbalta), 1 CAP PO DAILY Emtricitabine/Temofovir (Truvada 200/300MG), 1 TABLET PO QAM Furosemide (Furosemide), 20 MG PO DAILY Ketoconazole (Topical) (Ketoconazole), 1 APPLN TOP DAILY [place] Carbonate ([place] Carbonate ER), 900 MG PO HS Loratadine (Claritin), 10 MG PO QAM Methylcellulose (Laxative) (Citrucel), 500 MG PO QID Misc Natural Products (Osteo Bi-Flex Advanced Tr), 1 TAB PO DAILY Multiple Vitamins W/ Minerals (Multi Adult Gummies), 1 TAB PO BID Pantoprazole (Pantoprazole Sodium), 40 MG PO DAILY Potassium Gluconate (Potassium Gluconate), 550 MG PO DAILY Probiotic Product (Probiotic), 1 TAB PO QPM Terbinafine Hcl (Terbinafine Hcl), 1 TAB PO QAM Vitamin E (E-400), 400 UNIT PO BID Zinc Gluconate (Zinc), 50 MG PO DAILY Scheduled PRN Acetaminophen (Tylenol), 1,000 MG PO Q4 PRN for Pain or Fever Diphenoxylate/Atropine (Lomotil), 1-2 TAB PO Q4H PRN for Diarrhea Simethicone (Gas-X), 80 MG PO QID PRN for Gas or Constipation Allergies Coded Allergies: Mercury (Verified Allergy, Intermediate, Facial swelling, N/V, 03/21/17) "mercury, as in seafood, eye gtts, etc." Physical Exam Vital Signs Date Time Temp Pulse Resp B/P (MAP) Pulse Ox O2 Delivery O2 Flow Rate FiO2 03/21/17 16:29 64 15 134/77 98 Nasal Cannula 4.0 03/21/17 16:14 62 14 124/77 100 Nasal Cannula 03/21/17 15:52 58 14 137/83 100 Nasal Cannula 3.0 03/21/17 15:35 56 14 133/85 100 Nasal Cannula 03/21/17 15:19 52 16 142/85 100 Nasal Cannula 4.0 03/21/17 14:40 48 13 148/85 100 Nasal Cannula 4.0 03/21/17 14:26 54 16 157/91 100 Nasal Cannula 4.0 03/21/17 14:01 57 14 142/94 97 Nasal Cannula 6.0 03/21/17 13:49 100 Nasal Cannula 4.0 03/21/17 13:45 52 14 138/81 100 Room Air 03/21/17 13:39 55 20 139/93 99 Room Air 03/21/17 13:33 52 16 149/95 97 Room Air 03/21/17 13:33 67 03/21/17 13:26 96 Room Air 03/21/17 13:20 35.7 52 14 131/89 98 Room Air Physical Exam GENERAL: Patient is in no acute distress. HEENT: No acute trauma, normocephalic atraumatic, mucous membranes moist, no nasal congestion, no scleral icterus. Pupils are normal and reactive to light. NECK: No stridor, no adenopathy, no meningismus, trachea is midline. LUNGS: Clear to auscultation bilaterally, no wheeze, no rhonchi, breath sounds equal. HEART: Without murmurs gallops or rubs, bradycardic and regular rhythm. ABDOMEN: Soft, nontender, bowel sounds positive, no hernias, no peritonitis. EXTREMITIES: No cyanosis or edema, full range of motion of all the joints without pain or difficulty, no signs for acute trauma. NEUROLOGIC: Somnolent, arouses to painful stimuli and loud voice, does not answer questions, snoring respirations at times, moving all extremities. SKIN: No rash, no jaundice, no diaphoresis. Medical Decision & Procedures ER Provider Diagnostic Interpretation: X-ray results as stated below per interpretation by me and the radiologist: CHEST ONE VIEW PORTABLE CLINICAL HISTORY: Overdose dyspnea COMPARISON STUDY: 03/05/2017 FINDINGS: The bones soft tissues and hemidiaphragms are normal. The cardiomediastinal silhouette is normal. The lungs are clear. The pulmonary vasculature is normal. IMPRESSION: Negative chest. Electronically signed by: Ramón Ashton M.D. 03/21/2017 2:49 PM Dictated Date/Time: 03/21/2017 2:[address] results as stated below per my review and radiologist interpretation: HEAD WITHOUT CONTRAST (CT) HISTORY: 51-year-old male presents unresponsive TECHNIQUE: Multiple axial CT images of the head were obtained without contrast. CT DOSE: 1647.88 mGycm COMPARISON: Brain MR 03/05/2017, head CT 03/05/2017. FINDINGS: No acute intracranial hemorrhage, midline shift, mass, large territorial ischemia or abnormal extra-axial collection. Unchanged focal subcentimeter area of low attenuation within the inferior left lentiform nucleus suggest prominent perivascular space, unchanged. The calvarium is intact. Mastoid air cells and middle ear cavities are clear. There is mild mucosal thickening of the sphenoid and right maxillary sinuses. The soft tissues are within normal limits. Orbits are symmetric. IMPRESSION: No acute intracranial abnormality. The above report was generated using voice recognition software. It may contain grammatical, syntax or spelling errors. Electronically signed by: Edgar Gonzalez M.D. 03/21/2017 3:14 PM Dictated Date/Time: 03/21/2017 3:10 PM Laboratory Results 03/21/17 13:40 03/21/17 13:40 Test 03/21/17 13:38 03/21/17 13:40 03/21/17 14:30 Urine Color YELLOW Urine Appearance CLEAR (CLEAR) Urine pH 6.5 (4.5-7.5) Urine Specific [place] 1.011 (1.000-1.030) Urine Protein NEG (NEG) Urine Glucose (UA) NEG (NEG) Urine Ketones TRACE (NEG) Urine Occult Blood NEG (NEG) Urine Nitrite NEG (NEG) Urine Bilirubin NEG (NEG) Urine Urobilinogen NEG (NEG) Urine Leukocyte Esterase NEG (NEG) Urine Opiates Screen NEG (NEG) Urine Methadone, Qualitative NEG (NEG) Urine Barbiturates NEG (NEG) Urine Phencyclidine (PCP) Level NEG (NEG) Ur Amphetamine/Methamphetamine POS (NEG) MDMA (Ecstasy) Screen POS (NEG) Urine Benzodiazepines Screen NEG (NEG) Urine Cocaine Metabolite NEG (NEG) Urine Marijuana (THC) NEG (NEG) Red Blood Count 4.51 M/uL (4.7-6.1) Mean Corpuscular Volume 86.3 fL (80-100) Mean Corpuscular Hemoglobin 30.2 pg (25-34) Mean Corpuscular Hemoglobin Concent 35.0 g/dl (32-36) RDW Standard Deviation 41.5 fL (36.4-46.3) RDW Coefficient of Variation 13.1 % (11.5-14.5) Mean Platelet Volume 10.0 fL (7.4-10.4) Prothrombin Time 11.6 SECONDS (9.0-12.0) Prothromb Time International Ratio 1.1 (0.9-1.1) Activated Partial Thromboplast Time 28.9 SECONDS (21.0-31.0) Partial Thromboplastin Ratio 1.1 Anion Gap 7.0 mmol/L (3-11) Estimated GFR () 118.6 Estimated GFR (Non- 102.3 BUN/Creatinine Ratio 12.4 (10-20) Calcium Level 9.3 mg/dl (8.5-10.1) Magnesium Level 2.5 mg/dl (1.8-2.4) Total Bilirubin 0.5 mg/dl (0.2-1) Aspartate Amino Transf (AST/SGOT) 16 U/L (15-37) Alanine Aminotransferase (ALT/SGPT) 37 U/L (12-78) Alkaline Phosphatase 138 U/L (45-117) Total Creatine Kinase 144 U/L (39-308) Total Protein 7.3 gm/dl (6.4-8.2) Albumin 3.9 gm/dl (3.4-5.0) Globulin 3.4 gm/dl (2.5-4.0) Albumin/Globulin Ratio 1.1 (0.9-2) Lipase 139 U/L (73-393) Thyroid Stimulating Hormone (TSH) 1.530 uIu/ml (0.300-4.500) Salicylates Level < 1.7 mg/dl (2.8-20) Acetaminophen Level < 2 ug/ml (10-30) [place] Level 0.7 mMOL/L (0.6-1.2) Lactic Acid Level 0.8 mmol/L (0.4-2.0) Ammonia 14.0 umol/L (11-32) Ethyl Alcohol mg/dL < 3.0 mg/dl (0-3) Laboratory results reviewed by me. Medications Administered Medications (Trade) Dose Ordered Sig/Anthony Route Start Time Stop Time Status Last Admin Dose Admin Naloxone HCl (Narcan Inj) 0.4 mg STK-MED ONCE .ROUTE 03/21/17 13:50 03/21/17 13:51 DC 03/21/17 13:50 0.4 MG Sodium Chloride 500 ml @ 999 mls/hr Q31M STAT IV 03/21/17 13:53 03/21/17 14:23 DC 03/21/17 13:53 999 MLS/HR Sodium Chloride 1,000 ml @ 125 mls/hr Q8H STAT IV 03/21/17 13:53 03/21/17 17:44 DC 03/21/17 15:30 125 MLS/HR Procedure Inserted nasal airway in right side of the nose. ECG Indication: other (Unresponsiveness) Rate (beats per minute): 50 Rhythm: sinus bradycardia Findings: no acute ischemic change, no ectopy ED Course 1347: The patient was evaluated in room A01. A complete history and physical exam was performed. 1350: Narcan Inj 0.4 mg IV 1353: Sodium Chloride 1000 ml @ 125 mls/hr IV, Sodium Chloride 500 ml @ 999 mls/ hr IV 1534: I discussed the patient's case with Dr. Wynn, commercial intelligence manager with [facility]. The patient will be evaluated for further management and care. 1552: I discussed the patient's case with Dr. Stern, from [facility]. Medical Decision Differential diagnosis includes but is not limited to overdose, head trauma, sepsis, dehydration, electrolyte imbalance, suicidal ideation, alcohol abuse. There is no leukocytosis or concerning anemia. No significant electrolyte abnormality, kidney failure or hepatitis. Ammonia level is not elevated. Lactic acid level is not elevated making sepsis less likely. Brain CT shows no acute bleed or mass effect. EKG shows a sinus bradycardia, no acute ischemia. Cardiac enzyme testing 1 is not consistent with acute cardiac injury. Chest film does not show pneumonia or CHF. Urinalysis does not show infection. Urine tox shows amphetamines and ecstasy. Alcohol, Tylenol and aspirin levels are undetectable. [place] level is not toxic. There is no coagulopathy. No evidence for rhabdomyolysis. The patient appears to be in a euthyroid state. The patient presents unresponsive. He was hypothermic. He was aggressively managed. He received IV saline, he was placed in a mathew hugger to help with rewarming. He was having some hypoxia at times secondary to some airway obstruction. A nasal airway was placed and he had no further snoring or issues with his airway. His saturation remained adequate. During the patient's stay, he has maintained his airway. He does arouse to painful stimuli and loud voice. He does move all extremities. Of note, I did try some IV Narcan, this did not change his mental state in any way. He received 2 doses without any change in his condition. I spoke to the ICU attending, I talked with the on-call hospitalist. Case management has been involved. Admission/observation is warranted. Consults Time Called: 153 Consulting Physician: Dr. Wynn, commercial intelligence manager with [facility] Returned Call: [phone] I discussed the patient's case with Dr. Wynn, commercial intelligence manager with [facility]. The patient will be evaluated for further management and care. Additional Consults: Time Called: 155 [facility]ed [facility] Returned Call: 155 Additional Comments: I discussed the patient's case with Dr. Stern, from [facility]. Impression Primary Impression: Change in mental status Additional Impressions: Bradycardia Hypothermia Critical Care I have personally spent greater than 30 minutes of critical care time in the direct management of this patient. This includes bedside care, interpretation of diagnostic studies, and testing, discussion with consultants, and other required patient management activities. This 30 minutes is in excess of all separately billable procedures. Scribe Attestation The scribe's documentation has been prepared under my direction and personally reviewed by me in its entirety. I confirm that the note above accurately reflects all work, treatment, procedures, and medical decision making performed by me. Departure Information Dispostion Being Evaluated By Hospitalist Referrals No Doctor, Assigned (PCP) Patient Instructions [facility] Problem Qualifiers
[2017-03-21 15:02] LABS: MANUAL MICROSCOPIC REQUIRED? NO; REVIEW REQ? NO
--- NOTE | 2017-03-21 15:15 | DIAGNOSTIC IMAGING REPORT ---
HEAD WITHOUT CONTRAST (CT) HISTORY: 51-year-old male presents unresponsive TECHNIQUE: Multiple axial CT images of the head were obtained without contrast. CT DOSE: 1647.88 mGycm COMPARISON: Brain MR 03/05/2017, head CT 03/05/2017. FINDINGS: No acute intracranial hemorrhage, midline shift, mass, large territorial ischemia or abnormal extra-axial collection. Unchanged focal subcentimeter area of low attenuation within the inferior left lentiform nucleus suggest prominent perivascular space, unchanged. The calvarium is intact. Mastoid air cells and middle ear cavities are clear. There is mild mucosal thickening of the sphenoid and right maxillary sinuses. The soft tissues are within normal limits. Orbits are symmetric. IMPRESSION: No acute intracranial abnormality. The above report was generated using voice recognition software. It may contain grammatical, syntax or spelling errors. Electronically signed by: Edgar Gonzalez M.D. 03/21/2017 3:14 PM Dictated Date/Time: 03/21/2017 3:10 PM
[2017-03-21] MEDS ORDERED: CYAN500T PO (15:26)
[2017-03-21 16:33] VITALS: Ht 177.8 cm; Wt 89.9 kg
[2017-03-21] MEDS ORDERED: LORAZEPAM 2 MG/ML 1 ML VIAL IV PRN (16:45)
--- NOTE | 2017-03-21 17:23 | History and Physical ---
History & Physical Date of Service Mar 21, 2017. History & Physical History of Present Illness Source: friends, EMS 51 y/o M Hx depression, Bipolar disease, HIV, chronic back pain, polysubstance abuse, multiple suicide attempts and chronic ideation. Pt was admitted 03/05 entirely unresponsive following an overdose of a combination of substances which he could not clarify He was found at home by his partner and was hypotensive, hypothermic and bradycardic upon arriving in the ER. He recovered spontaneously after receiving supportive care for 2 days and denied any recollection of the events leading to his hospitalization. His partner stated previously that he may have been experimenting with GHB recently. He takes opiates, several psychiatric medications, cocaine and methamphetamine. He also is said to exhibit frequent suicidal ideation and apparently carries a pill bottle around which is a well researched med combination intended for the purpose of suicide. He may have ingested synthetic marijuana prior to his recent overdose. We are again unable to determine which medication or drug may have lead to his current unresponsive state. He has not required intubation at the time of admission and does respond slightly to pain whereas he was entirely unresponsive previously. His UDS is + for methamphetamines only at present. He was again hypotensive, hypothermic and bradycardic on admission. He will proceed to the ICU. Past Medical/Surgical History Medical Problems: (1) Human Immunodeficiency Virus [Hiv] Disease Status: Chronic (2) Hyperlipidemia Nec/Nos Status: Chronic (3) Hypertension Nos Status: Chronic (4) Kidney stones Status: Resolved (5) Peripheral neuropathy Status: Chronic (6) Pneumonia Status: Resolved (7) Restless leg syndrome Status: Chronic 8) EGD dated 10/27 indication listed as dysphagia, weight loss, diarrhea - normal study 9) History of Italo-en-Y gastrojejunostomy 10) Bipolar disease 11) Suicidal ideation 12) Overdose leading to prolonged unresponsiveness, hypothermia, hypotension, bradycardia 03/05/27 Family History Cancer Diabetes mellitus FH ischemic heart disease FH: arthritis FH: seizures Hypertension Lung disease Other cardiovascular diseases Trach/bronchog mal Social History Smoking Status: Never Smoker Drug Use: none Marital Status: in relationship Occupational Status: unemployed Immunizations History of Influenza Vaccine: No History of Tetanus Vaccine?: Yes Tetanus Immunization Date: Jun 20, 2011 History of Pneumococcal: Yes Pneumococcal Date: Jun 20, 2011 History of Hepatitis B Vaccine: Yes Hepatitis Immunization Date: Jun 20, 2011 Allergies Coded Allergies: Mercury (Verified Allergy, Intermediate, Facial swelling, N/V, 03/05/17) "mercury, as in seafood, eye gtts, etc." Home Medications Scheduled Amlodipine (Norvasc), 5 MG PO QAM Ascorbic Acid (Vitamin C), 1 TAB PO BID B-Complex Vitamins (Vitamin B Complex), 1 TABS PO DAILYBB Biotin (Biotin), 1 TAB PO QAM Calcium/Vitamin D (Os-Bharath 500 Plus D), 1 TAB PO QPM Cholecalciferol (Vitamin D3), 1 TAB PO QAM Cholecalciferol (Vitamin D3 400), 400 UNIT PO DAILY Cyanocobalamin (Vitamin B12), 1 TAB PO BID Dolutegravir Sodium (Tivicay), 50 MG PO QAM Duloxetine HCl (Duloxetine HCl), 120 MG PO DAILY Emtricitabine/Temofovir (Truvada 200/300MG), 1 TABLET PO QAM Furosemide (Furosemide), 20 MG PO DAILY Ketoconazole (Topical) (Ketoconazole), 1 APPLN TOP DAILY [place] Carbonate ([place] Carbonate ER), 1 TAB PO QAM [place] Carbonate ([place] Carbonate ER), 2 TAB PO QPM Loratadine (Claritin), 10 MG PO QAM Lurasidone Hcl (Latuda), 120 MG PO QPM Methocarbamol (Methocarbamol), 750 MG PO TID Methylcellulose (Laxative) (Citrucel), 500 MG PO QID Misc Natural Products (Ginkgo Biloba), 120 MG PO QAM Misc Natural Products (Osteo Bi-Flex Advanced Tr), 1 TAB PO DAILY Multiple Vitamins W/ Minerals (Multi Adult Gummies), 1 TAB PO BID Pantoprazole (Pantoprazole Sodium), 40 MG PO DAILY Potassium Gluconate (Potassium Gluconate), 550 MG PO DAILY Probiotic Product (Probiotic), 1 TAB PO QPM Ropinirole (Requip), 3 MG PO QPM Terbinafine Hcl (Terbinafine Hcl), 1 TAB PO QAM Vitamin E (E-400), 400 UNIT PO BID Zinc Gluconate (Zinc), 50 MG PO DAILY Scheduled PRN Acetaminophen (Tylenol), 1,000 MG PO Q4 PRN for Pain or Fever Clonazepam (Klonopin), 1 MG PO BID PRN for Anxiety Diphenoxylate/Atropine (Lomotil), 1-2 TAB PO Q4H PRN for Diarrhea Simethicone (Gas-X), 80 MG PO QID PRN for Gas or Constipation Tramadol (Ultram), 50-100 MG PO DAILY PRN for Pain Review of Systems cannot obtain Physical Exam Vital Signs Date Time Temp Pulse Resp B/P (MAP) Pulse Ox O2 Delivery O2 Flow Rate FiO2 03/05/17 02:20 34.5 46 16 91/54 100 Nasal Cannula 2.0 03/05/17 02:11 47 03/05/17 01:51 48 16 87/46 100 Nasal Cannula 2.0 03/05/17 01:15 49 16 87/49 98 Nasal Cannula 2.0 03/05/17 00:44 51 16 98/57 98 Nasal Cannula 2.0 03/04/17 23:37 60 03/04/17 23:30 35.3 61 16 97/50 97 Room Air General Appearance: + pertinent finding (Completely unresponsive - no reflexes elicited excepting one corneal reflex which could not be repeated) Head: normocephalic, atraumatic ENT: pharynx normal Neck: no JVD Respiratory/Chest: chest non-tender, lungs clear, normal breath sounds Cardiovascular: regular rate, rhythm, no edema, no gallop Abdomen/GI: normal bowel sounds, non tender, soft Genitourinary - Male: + pertinent finding (Pt was found wearing 2 penis rings and has mild inflamation and a shallow ulcer at the base of the penis) Back: normal inspection, no CVA tenderness Extremities/Musculoskelatal: normal inspection, normal capillary refill Neurologic/Psych: + pertinent finding - Responds to pain only - moves all extrems Diagnostics Laboratory Results Results Past 24 Hours Test 03/04/17 23:36 03/04/17 23:38 03/04/17 23:40 03/04/17 23:50 Range/Units Bedside Glucose 68 75 70-99 mg/dl White Blood Count 5.21 4.8-10.8 K/uL Red Blood Count 3.81 4.7-6.1 M/uL Hemoglobin 11.4 14.0-18.0 g/dL Hematocrit 33.5 42-52 % Mean Corpuscular Volume 87.9 80-100 fL Mean Corpuscular Hemoglobin 29.9 25-34 pg Mean Corpuscular Hemoglobin Concent 34.0 32-36 g/dl Platelet Count 139 130-400 K/uL Mean Platelet Volume 9.6 7.4-10.4 fL Neutrophils (%) (Auto) 60.5 % Lymphocytes (%) (Auto) 28.6 % Monocytes (%) (Auto) 8.8 % Eosinophils (%) (Auto) 1.7 % Basophils (%) (Auto) 0.2 % Neutrophils # (Auto) 3.15 1.4-6.5 K/uL Lymphocytes # (Auto) 1.49 1.2-3.4 K/uL Monocytes # (Auto) 0.46 0.11-0.59 K/uL Eosinophils # (Auto) 0.09 0-0.5 K/uL Basophils # (Auto) 0.01 0-0.2 K/uL RDW Standard Deviation 42.5 36.4-46.3 fL RDW Coefficient of Variation 13.2 11.5-14.5 % Immature Granulocyte % (Auto) 0.2 % Immature Granulocyte # (Auto) 0.01 0.00-0.02 K/uL Sodium Level 144 136-145 mmol/L Potassium Level 3.1 3.5-5.1 mmol/L Chloride Level 110 98-107 mmol/L Carbon Dioxide Level 26 21-32 mmol/L Anion Gap 8.0 3-11 mmol/L Blood Urea Nitrogen 14 7-18 mg/dl Creatinine 0.99 0.60-1.40 mg/dl Estimated GFR () 103.2 Estimated GFR (Non- 89.1 BUN/Creatinine Ratio 14.1 10-20 Random Glucose 69 70-99 mg/dl Calcium Level 7.8 8.5-10.1 mg/dl Magnesium Level 2.2 1.8-2.4 mg/dl Total Bilirubin 0.4 0.2-1 mg/dl Direct Bilirubin < 0.1 0-0.2 mg/dl Aspartate Amino Transf (AST/SGOT) 14 15-37 U/L Alanine Aminotransferase (ALT/SGPT) 21 12-78 U/L Alkaline Phosphatase 90 45-117 U/L Total Creatine Kinase 179 39-308 U/L Total Protein 5.5 6.4-8.2 gm/dl Albumin 2.9 3.4-5.0 gm/dl Thyroid Stimulating Hormone (TSH) 0.373 0.300-4.500 uIu/ml Salicylates Level < 1.7 2.8-20 mg/dl Acetaminophen Level 6 10-30 ug/ml [place] Level 0.3 0.6-1.2 mMOL/L Ethyl Alcohol mg/dL < 3.0 0-3 mg/dl Urine Opiates Screen POS NEG Urine Methadone, Qualitative NEG NEG Urine Barbiturates NEG NEG Urine Phencyclidine (PCP) Level NEG NEG Ur Amphetamine/Methamphetamine POS NEG MDMA (Ecstasy) Screen POS NEG Urine Benzodiazepines Screen NEG NEG Urine Cocaine Metabolite NEG NEG Urine Marijuana (THC) NEG NEG Test 03/04/17 23:59 03/05/17 02:41 03/05/17 02:57 Range/Units Bedside Troponin I < 0.030 0-0.045 ng/ml Bedside Blood Gas pH (LAB) 7.28 7.35-7.45 Bedside Blood Gas pCO2 (LAB) 55 35-46 mmHg Bedside Blood Gas pO2 (LAB) 84 80-95 mmHg Bedside Blood Gas HCO3 (LAB) 26 19-24 meq/L Bedside Blood Gas Total CO2 27 24-31 mEq/l Bedside Blood Gas Base Excess (LAB) -1.0 -9-1.8 meq/L Bedside Blood Gas O2 Saturation 94.0 90-95 % Diagnostic Radiology CT head - WNL EKG Sinus - no evidence of ischemia - Bradycardic Impression Assessment and Plan 51 y/o M Hx depression, Bipolar disease, HIV, chronic back pain, polysubstance abuse, multiple suicide attempts and chronic ideation. Pt was admitted 03/05 entirely unresponsive following an overdose of a combination of substances which he could not clarify He was found at home by his partner and was hypotensive, hypothermic and bradycardic upon arriving in the ER. He recovered spontaneously after receiving supportive care for 2 days and denied any recollection of the events leading to his hospitalization. His partner stated previously that he may have been experimenting with GHB recently. He takes opiates, several psychiatric medications, cocaine and methamphetamine. He also is said to exhibit frequent suicidal ideation and apparently carries a pill bottle around which is a well researched med combination intended for the purpose of suicide. He may have ingested synthetic marijuana prior to his recent overdose. We are again unable to determine which medication or drug may have lead to his current unresponsive state. He has not required intubation at the time of admission and does respond slightly to pain whereas he was entirely unresponsive previously. His UDS is + for methamphetamines only at present. He was again hypotensive, hypothermic and bradycardic on admission. He will proceed to the ICU. 1) Unresponsive - The history and physical are not consistent with an infectious etiology such as meningitis or encephalitis. Differential may include a catatonic or anesthetic state due to ingestion of multiple substances. 2) Hypothermia, hypotension, bradycardia - likely, once again, a drug effect. No evidence of infection/sepsis, seizure or arrhythmia. Improving with IVF, warming blanket. 3) Bipolar disease, depression, suicidal ideation - All psychoactive meds held at present - will need mental health consult when he wakes up. 4) HIV - this is of no immediate concern - cont meds upon D/C or transfer. Code status indeterminate - Lovenox prophylaxis Total time for this admit including review of labs, meds, records, EKG, imaging - discussion with ER attending - including crit care time 38 min
[2017-03-21] MEDS ORDERED: MAGNESIUM SULFATE 1GM / D5W 1 GM in PREMIXED IN D5W 100 ML IV SCH (17:30)
--- NOTE | 2017-03-21 17:46 | Critical Care Consultation ---
Critical Care Consultation Date of Consultation: Mar 21, 2017. Attending Physician: Reason for Consultation: Overdose with hypothermia History of Present Illness He has a long history of polysubstance abuse and overdose. He presented to the ER unresponsive and hypothermic. With general supportive measures he has remained stable but given the history will be monitored in the ICU. He is unable give me much of any history. I reviewed the hospitalist information and spoke with the ER physician. He is demonstrating adequate exchange and volume stability. A mechanical airway has been used for airway patency. It is appropriate to monitor him for a period of time in the ICU given the airway concern and his general decline. Will require psychiatric care. Underlying medical issues reviewed. Past Medical/Surgical History Bipolar Disorder Polysubstance abuse HIV+ Depression/Suicidal Ideation Family History Cancer Diabetes mellitus FH ischemic heart disease FH: arthritis FH: seizures Hypertension Lung disease Other cardiovascular diseases Trach/bronchog mal Social History Smoking Status: Unknown if Ever Smoked Drug Use: none Marital Status: in relationship Housing Status: lives with significant other Occupation Status: unemployed Allergies Coded Allergies: Mercury (Verified Allergy, Intermediate, Facial swelling, N/V, 03/21/17) "mercury, as in seafood, eye gtts, etc." Home Medications Scheduled Amlodipine (Norvasc), 5 MG PO QAM Ascorbic Acid (Vitamin C), 1 TAB PO BID B-Complex Vitamins (Vitamin B Complex), 1 TABS PO DAILYBB Biotin (Biotin), 1,000 MCG PO QAM Calcium/Vitamin D (Os-Bharath 500 Plus D), 1 TAB PO QPM Cholecalciferol (Vitamin D3), 1 TAB PO QAM Cholecalciferol (Vitamin D3 400), 400 UNIT PO DAILY Cyanocobalamin (Vitamin B-12), 1,000 MCG PO BID Dolutegravir Sodium (Tivicay), 50 MG PO QAM Duloxetine Hcl (Cymbalta), 1 CAP PO DAILY Emtricitabine/Temofovir (Truvada 200/300MG), 1 TABLET PO QAM Furosemide (Furosemide), 20 MG PO DAILY Ketoconazole (Topical) (Ketoconazole), 1 APPLN TOP DAILY [place] Carbonate ([place] Carbonate ER), 900 MG PO HS Loratadine (Claritin), 10 MG PO QAM Methylcellulose (Laxative) (Citrucel), 500 [facility]ID [facility] (Osteo Bi-Flex Advanced Tr), 1 TAB PO DAILY Multiple Vitamins W/ Minerals (Multi Adult Gummies), 1 TAB PO BID Pantoprazole (Pantoprazole Sodium), 40 MG PO DAILY Potassium Gluconate (Potassium Gluconate), 550 MG PO DAILY Probiotic Product (Probiotic), 1 TAB PO QPM Terbinafine Hcl (Terbinafine Hcl), 1 TAB PO QAM Vitamin E (E-400), 400 UNIT PO BID Zinc Gluconate (Zinc), 50 MG PO DAILY Scheduled PRN Acetaminophen (Tylenol), 1,000 MG PO Q4 PRN for Pain or Fever Diphenoxylate/Atropine (Lomotil), 1-2 TAB PO Q4H PRN for Diarrhea Simethicone (Gas-X), 80 MG PO QID PRN for Gas or Constipation Current Inpatient Medications Current Inpatient Medications Medications (Trade) Dose Ordered Sig/Anthony Route Start Time Stop Time Status Last Admin Dose Admin Sodium Chloride 1,000 ml @ 125 mls/hr Q8H STAT IV 03/21/17 13:53 03/21/17 21:52 03/21/17 15:30 125 MLS/HR Enoxaparin Sodium (Lovenox Inj) 40 mg Q24H SQ 03/21/17 16:45 04/20/17 16:44 UNV Lorazepam (Ativan Inj) 1 mg Q6H PRN IV 03/21/17 16:45 04/20/17 16:44 UNV Pantoprazole Sodium 40 mg/ Syringe 10 ml @ 5 mls/min DAILY IV 03/22/17 09:00 04/21/17 08:59 UNV Magnesium Sulfate 1 gm/Prmx 100 ml @ 100 mls/hr ONE IV 03/21/17 17:30 04/20/17 17:29 UNV Potassium Chloride/Dextrose/ Sod Cl 1,000 ml @ 150 mls/hr Q6H40M IV 03/21/17 17:30 04/20/17 17:29 UNV Review of Systems I am unable to get any meaningful history from him now. Physical Exam Date Time Temp Pulse Resp B/P (MAP) Pulse Ox O2 Delivery O2 Flow Rate FiO2 03/21/17 17:06 36.6 67 16 137/68 98 Room Air 03/21/17 16:29 64 15 134/77 98 Nasal Cannula 4.0 03/21/17 16:14 62 14 124/77 100 Nasal Cannula 03/21/17 15:52 58 14 137/83 100 Nasal Cannula 3.0 03/21/17 15:35 56 14 133/85 100 Nasal Cannula 03/21/17 15:19 52 16 142/85 100 Nasal Cannula 4.0 03/21/17 14:40 48 13 148/85 100 Nasal Cannula 4.0 03/21/17 14:26 54 16 157/91 100 Nasal Cannula 4.0 03/21/17 14:01 57 14 142/94 97 Nasal Cannula 6.0 03/21/17 13:49 100 Nasal Cannula 4.0 03/21/17 13:45 52 14 138/81 100 Room Air 03/21/17 13:39 55 20 139/93 99 Room Air 03/21/17 13:33 52 16 149/95 97 Room Air 03/21/17 13:33 67 03/21/17 13:26 96 Room Air 03/21/17 13:20 35.7 52 14 131/89 98 Room Air Sedated HEENT--nasal trumpet Respiratory--exchange is ok Cardio--rate and volume ok. GI--functional/nontender --neg Musculo--no trauma Neuro--somnolent Derm--neg Psych--not available Laboratory Results Last 24 Hours Test 03/21/17 13:38 03/21/17 13:40 03/21/17 14:30 Urine Color YELLOW Urine Appearance CLEAR Urine pH 6.5 Urine Specific [place] 1.011 Urine Protein NEG Urine Glucose (UA) NEG Urine Ketones TRACE Urine Occult Blood NEG Urine Nitrite NEG Urine Bilirubin NEG Urine Urobilinogen NEG Urine Leukocyte Esterase NEG Urine Opiates Screen NEG Urine Methadone, Qualitative NEG Urine Barbiturates NEG Urine Phencyclidine (PCP) Level NEG Ur Amphetamine/Methamphetamine POS MDMA (Ecstasy) Screen POS Urine Benzodiazepines Screen NEG Urine Cocaine Metabolite NEG Urine Marijuana (THC) NEG White Blood Count 4.10 K/uL Red Blood Count 4.51 M/uL Hemoglobin 13.6 g/dL Hematocrit 38.9 % Mean Corpuscular Volume 86.3 fL Mean Corpuscular Hemoglobin 30.2 pg Mean Corpuscular Hemoglobin Concent 35.0 g/dl RDW Standard Deviation 41.5 fL RDW Coefficient of Variation 13.1 % Platelet Count 150 K/uL Mean Platelet Volume 10.0 fL Prothrombin Time 11.6 SECONDS Prothromb Time International Ratio 1.1 Activated Partial Thromboplast Time 28.9 SECONDS Partial Thromboplastin Ratio 1.1 Sodium Level 142 mmol/L Potassium Level 3.2 mmol/L Chloride Level 107 mmol/L Carbon Dioxide Level 28 mmol/L Anion Gap 7.0 mmol/L Blood Urea Nitrogen 11 mg/dl Creatinine 0.85 mg/dl Estimated GFR () 118.6 Estimated GFR (Non- 102.3 BUN/Creatinine Ratio 12.4 Random Glucose 84 mg/dl Calcium Level 9.3 mg/dl Magnesium Level 2.5 mg/dl Total Bilirubin 0.5 mg/dl Aspartate Amino Transf (AST/SGOT) 16 U/L Alanine Aminotransferase (ALT/SGPT) 37 U/L Alkaline Phosphatase 138 U/L Total Creatine Kinase 144 U/L Troponin I < 0.015 ng/ml Total Protein 7.3 gm/dl Albumin 3.9 gm/dl Globulin 3.4 gm/dl Albumin/Globulin Ratio 1.1 Lipase 139 U/L Thyroid Stimulating Hormone (TSH) 1.530 uIu/ml Salicylates Level < 1.7 mg/dl Acetaminophen Level < 2 ug/ml [place] Level 0.7 mMOL/L Lactic Acid Level 0.8 mmol/L Ammonia 14.0 umol/L Ethyl Alcohol mg/dL < 3.0 mg/dl Assessment & Plan Polysubstance--Possible GHB--General supportive care 1. Cardio--track B/P and urine output 2. Respiratory--general airway support 3. GI--functional 4. F/E/N--will track appropriate 5. Psych--will need psychiatric care
[2017-03-21 17:53] VITALS: BP 118/67; PULSE 58; O2SAT 99
[2017-03-21] MEDS ORDERED: D5NSS + 20MEQ KCL 1,000 ML IV SCH (18:00)
[2017-03-21 18:01] VITALS: BP 118/66; PULSE 58; TEMP 36.7; O2SAT 99
[2017-03-21 20:00] VITALS: BP 124/73; PULSE 56; TEMP 36.7; O2SAT 95; O2SAT 96
[2017-03-21] MEDS: ENOXAPARIN 40 MG/0.4 ML SYR SQ SCH (21:30)
[2017-03-21 22:00] VITALS: BP 116/74; PULSE 53; O2SAT 96
[2017-03-22] VITALS (22 sets, daily range): BP systolic 115–140; BP diastolic 66–82; PULSE 48–86; TEMP 36.6–37.1; O2SAT 95–100
[2017-03-22 05:46] LABS: BASO % 0.2 %; BASO ABS # 0.01 K/uL (0-0.2); COMPLETE YES; EOS % 1.7 %; HEMATOCRIT 38.7 % (42-52); LYMPH % 27.1 %; LYMPH ABS # 1.25 K/uL (1.2-3.4); MEAN CELL VOLUME 87.6 fL (80-100); MEAN CORPUSCULAR HEMOGLOBIN 30.3 pg (25-34); MEAN CORPUSCULAR HGB CONC 34.6 g/dl (32-36); MEAN PLATELET VOLUME 9.6 fL (7.4-10.4); MONO % 9.1 %; NEUT % 61.9 %; PLATELET COUNT 140 K/uL (130-400); RED BLOOD COUNT 4.42 M/uL (4.7-6.1); WHITE BLOOD COUNT 4.62 K/uL (4.8-10.8)
[2017-03-22 06:33] LABS: BUN/CREATININE RATIO 4.6 (10-20); CALCIUM 8.2 mg/dl (8.5-10.1); CREATININE 0.69 mg/dl (0.60-1.40); MAGNESIUM 2.1 mg/dl (1.8-2.4); PHOSPHORUS 2.5 mg/dl (2.5-4.9); POTASSIUM 3.4 mmol/L (3.5-5.1)
--- NOTE | 2017-03-22 07:23 | Critical Care Progress Note ---
Critical Care Progress Note Date of Service Mar 22, 2017. ICU Day ICU Day Number: [address] Wynn Subjective Awake and alert AM today. Using cell phone to text. No hypoxemia. No concerns with pulmonary toilette. We talked about need for psychiatric care. ICU requirements complete. Consults & Procedures Consultants: see orders Procedures: none Data Medications: Current Inpatient Medications Medications (Trade) Dose Ordered Sig/Anthony Route Start Time Stop Time Status Last Admin Dose Admin Enoxaparin Sodium (Lovenox Inj) 40 mg QPM SQ 03/21/17 21:00 04/20/17 20:59 03/21/17 21:30 40 MG Lorazepam (Ativan Inj) 1 mg Q6H PRN IV 03/21/17 16:45 04/20/17 16:44 Pantoprazole Sodium 40 mg/ Syringe 10 ml @ 5 mls/min DAILY@1100 IV 03/22/17 11:00 04/21/17 10:59 Potassium Chloride/Dextrose/ Sod Cl 1,000 ml @ 150 mls/hr Q6H40M IV 03/21/17 18:00 04/20/17 17:59 03/21/17 18:45 150 MLS/HR Vital Signs: Date Time Temp Pulse Resp B/P (MAP) Pulse Ox O2 Delivery O2 Flow Rate FiO2 03/22/17 06:00 52 15 139/74 (95) 99 Room Air 03/22/17 04:00 36.7 48 15 138/82 (100) 98 Room Air 03/22/17 04:00 98 Room Air 03/22/17 02:00 53 15 130/73 (92) 97 Room Air 03/22/17 00:00 98 Room Air 03/22/17 00:00 36.6 50 14 130/74 (92) 98 Room Air 03/21/17 22:00 53 16 116/74 (88) 96 Room Air 03/21/17 20:00 36.7 56 22 124/73 (90) 95 Room Air 03/21/17 20:00 96 Room Air 03/21/17 18:01 36.7 58 22 118/66 (83) 99 Nasal Cannula 2.0 03/21/17 17:53 58 24 118/67 (84) 99 Nasal Cannula 2.0 03/21/17 17:06 36.6 67 16 137/68 98 Room Air 03/21/17 16:29 64 15 134/77 98 Nasal Cannula 4.0 03/21/17 16:14 62 14 124/77 100 Nasal Cannula 03/21/17 15:52 58 14 137/83 100 Nasal Cannula 3.0 03/21/17 15:35 56 14 133/85 100 Nasal Cannula 03/21/17 15:19 52 16 142/85 100 Nasal Cannula 4.0 03/21/17 14:40 48 13 148/85 100 Nasal Cannula 4.0 03/21/17 14:26 54 16 157/91 100 Nasal Cannula 4.0 03/21/17 14:01 57 14 142/94 97 Nasal Cannula 6.0 03/21/17 13:49 100 Nasal Cannula 4.0 03/21/17 13:45 52 14 138/81 100 Room Air 03/21/17 13:39 55 20 139/93 99 Room Air 03/21/17 13:33 52 16 149/95 97 Room Air 03/21/17 13:33 67 03/21/17 13:26 96 Room Air 03/21/17 13:20 35.7 52 14 131/89 98 Room Air Laboratory Results: Last 24 Hours Test 03/21/17 13:38 03/21/17 13:40 03/21/17 14:30 03/21/17 19:03 Urine Color YELLOW Urine Appearance CLEAR Urine pH 6.5 Urine Specific [place] 1.011 Urine Protein NEG Urine Glucose (UA) NEG Urine Ketones TRACE Urine Occult Blood NEG Urine Nitrite NEG Urine Bilirubin NEG Urine Urobilinogen NEG Urine Leukocyte Esterase NEG Urine Opiates Screen NEG Urine Methadone, Qualitative NEG Urine Barbiturates NEG Urine Phencyclidine (PCP) Level NEG Ur Amphetamine/Methamphetamine POS MDMA (Ecstasy) Screen POS Urine Benzodiazepines Screen NEG Urine Cocaine Metabolite NEG Urine Marijuana (THC) NEG White Blood Count 4.10 K/uL Red Blood Count 4.51 M/uL Hemoglobin 13.6 g/dL Hematocrit 38.9 % Mean Corpuscular Volume 86.3 fL Mean Corpuscular Hemoglobin 30.2 pg Mean Corpuscular Hemoglobin Concent 35.0 g/dl RDW Standard Deviation 41.5 fL RDW Coefficient of Variation 13.1 % Platelet Count 150 K/uL Mean Platelet Volume 10.0 fL Prothrombin Time 11.6 SECONDS Prothromb Time International Ratio 1.1 Activated Partial Thromboplast Time 28.9 SECONDS Partial Thromboplastin Ratio 1.1 Sodium Level 142 mmol/L Potassium Level 3.2 mmol/L Chloride Level 107 mmol/L Carbon Dioxide Level 28 mmol/L Anion Gap 7.0 mmol/L Blood Urea Nitrogen 11 mg/dl Creatinine 0.85 mg/dl Estimated GFR () 118.6 Estimated GFR (Non- 102.3 BUN/Creatinine Ratio 12.4 Random Glucose 84 mg/dl Calcium Level 9.3 mg/dl Magnesium Level 2.5 mg/dl Total Bilirubin 0.5 mg/dl Aspartate Amino Transf (AST/SGOT) 16 U/L Alanine Aminotransferase (ALT/SGPT) 37 U/L Alkaline Phosphatase 138 U/L Total Creatine Kinase 144 U/L Troponin I < 0.015 ng/ml < 0.015 ng/ml Total Protein 7.3 gm/dl Albumin 3.9 gm/dl Globulin 3.4 gm/dl Albumin/Globulin Ratio 1.1 Lipase 139 U/L Thyroid Stimulating Hormone (TSH) 1.530 uIu/ml Salicylates Level < 1.7 mg/dl Acetaminophen Level < 2 ug/ml [place] Level 0.7 mMOL/L Lactic Acid Level 0.8 mmol/L Ammonia 14.0 umol/L Ethyl Alcohol mg/dL < 3.0 mg/dl Test 03/21/17 23:53 03/22/17 05:28 Bedside Glucose 106 mg/dl White Blood Count 4.62 K/uL Red Blood Count 4.42 M/uL Hemoglobin 13.4 g/dL Hematocrit 38.7 % Mean Corpuscular Volume 87.6 fL Mean Corpuscular Hemoglobin 30.3 pg Mean Corpuscular Hemoglobin Concent 34.6 g/dl Platelet Count 140 K/uL Mean Platelet Volume 9.6 fL Neutrophils (%) (Auto) 61.9 % Lymphocytes (%) (Auto) 27.1 % Monocytes (%) (Auto) 9.1 % Eosinophils (%) (Auto) 1.7 % Basophils (%) (Auto) 0.2 % Neutrophils # (Auto) 2.86 K/uL Lymphocytes # (Auto) 1.25 K/uL Monocytes # (Auto) 0.42 K/uL Eosinophils # (Auto) 0.08 K/uL Basophils # (Auto) 0.01 K/uL RDW Standard Deviation 43.1 fL RDW Coefficient of Variation 13.4 % Immature Granulocyte % (Auto) 0.0 % Immature Granulocyte # (Auto) 0.00 K/uL Sodium Level 148 mmol/L Potassium Level 3.4 mmol/L Chloride Level 114 mmol/L Carbon Dioxide Level 29 mmol/L Anion Gap 5.0 mmol/L Blood Urea Nitrogen 3 mg/dl Creatinine 0.69 mg/dl Est Creatinine Clear Calc Drug Dose 133.7 ml/min Estimated GFR () 129.2 Estimated GFR (Non- 111.5 BUN/Creatinine Ratio 4.6 Random Glucose 98 mg/dl Calcium Level 8.2 mg/dl Phosphorus Level 2.5 mg/dl Magnesium Level 2.1 mg/dl Total Bilirubin 0.4 mg/dl Direct Bilirubin 0.1 mg/dl Aspartate Amino Transf (AST/SGOT) 32 U/L Alanine Aminotransferase (ALT/SGPT) 32 U/L Alkaline Phosphatase 113 U/L Total Protein 6.1 gm/dl Albumin 3.2 gm/dl
--- NOTE | 2017-03-22 09:33 | Critical Care Progress Note ---
Critical Care Progress Note Date of Service Mar 22, 2017. ICU Day ICU Day Number: [address] Wynn Subjective Respiratory status has stabilized. Hemodynamics ok. He is awake and alert. Requires psychiatric care. The [facility] and IV can come out. Current SOFA Score SOFA Score Response (Comments) Value PaO2/FiO2 (mmHg) < 400 1 SaO2 / FIO2 221 - 301 1 Platelets (x10) > 150 0 Bilirubin (mg/dL) < 1.2 0 [place] Coma Score 15 0 Level of Hypotension No Hypotension 0 Creatinine (mg/dL) < 1.2 0 Total 2 Assessment & Plan PolyDrug OD with complex psychiatric disease 1. Cardio--volume appropriate 2. Pulmonary--acceptable 3. Neuro--baseline 4. Dispo--can transfer out of the ICU Consults & Procedures Consultants: see orders Procedures: none Data Medications: Current Inpatient Medications Medications (Trade) Dose Ordered Sig/Anthony Route Start Time Stop Time Status Last Admin Dose Admin Enoxaparin Sodium (Lovenox Inj) 40 mg QPM SQ 03/21/17 21:00 04/20/17 20:59 03/21/17 21:30 40 MG Lorazepam (Ativan Inj) 1 mg Q6H PRN IV 03/21/17 16:45 04/20/17 16:44 Pantoprazole Sodium 40 mg/ Syringe 10 ml @ 5 mls/min DAILY@1100 IV 03/22/17 11:00 04/21/17 10:59 Potassium Chloride/Dextrose/ Sod Cl 1,000 ml @ 150 mls/hr Q6H40M IV 03/21/17 18:00 04/20/17 17:59 03/21/17 18:45 150 MLS/HR Vital Signs: Date Time Temp Pulse Resp B/P (MAP) Pulse Ox O2 Delivery O2 Flow Rate FiO2 03/22/17 08:01 36.9 65 22 124/74 (91) 100 Room Air 03/22/17 08:00 64 22 100 03/22/17 07:45 98 Room Air 03/22/17 07:01 61 15 123/74 (90) 100 03/22/17 07:00 64 17 99 03/22/17 06:00 52 15 139/74 (95) 99 Room Air 03/22/17 04:00 36.7 48 15 138/82 (100) 98 Room Air 03/22/17 04:00 98 Room Air 03/22/17 02:00 53 15 130/73 (92) 97 Room Air 03/22/17 00:00 98 Room Air 03/22/17 00:00 36.6 50 14 130/74 (92) 98 Room Air 03/21/17 22:00 53 16 116/74 (88) 96 Room Air 03/21/17 20:00 36.7 56 22 124/73 (90) 95 Room Air 03/21/17 20:00 96 Room Air 03/21/17 18:01 36.7 58 22 118/66 (83) 99 Nasal Cannula 2.0 03/21/17 17:53 58 24 118/67 (84) 99 Nasal Cannula 2.0 03/21/17 17:06 36.6 67 16 137/68 98 Room Air 03/21/17 16:29 64 15 134/77 98 Nasal Cannula 4.0 03/21/17 16:14 62 14 124/77 100 Nasal Cannula 03/21/17 15:52 58 14 137/83 100 Nasal Cannula 3.0 03/21/17 15:35 56 14 133/85 100 Nasal Cannula 03/21/17 15:19 52 16 142/85 100 Nasal Cannula 4.0 03/21/17 14:40 48 13 148/85 100 Nasal Cannula 4.0 03/21/17 14:26 54 16 157/91 100 Nasal Cannula 4.0 03/21/17 14:01 57 14 142/94 97 Nasal Cannula 6.0 03/21/17 13:49 100 Nasal Cannula 4.0 03/21/17 13:45 52 14 138/81 100 Room Air 03/21/17 13:39 55 20 139/93 99 Room Air 03/21/17 13:33 52 16 149/95 97 Room Air 03/21/17 13:33 67 03/21/17 13:26 96 Room Air 03/21/17 13:20 35.7 52 14 131/89 98 Room Air Laboratory Results: Last 24 Hours Test 03/21/17 13:38 03/21/17 13:40 03/21/17 14:30 03/21/17 19:03 Urine Color YELLOW Urine Appearance CLEAR Urine pH 6.5 Urine Specific [place] 1.011 Urine Protein NEG Urine Glucose (UA) NEG Urine Ketones TRACE Urine Occult Blood NEG Urine Nitrite NEG Urine Bilirubin NEG Urine Urobilinogen NEG Urine Leukocyte Esterase NEG Urine Opiates Screen NEG Urine Methadone, Qualitative NEG Urine Barbiturates NEG Urine Phencyclidine (PCP) Level NEG Ur Amphetamine/Methamphetamine POS MDMA (Ecstasy) Screen POS Urine Benzodiazepines Screen NEG Urine Cocaine Metabolite NEG Urine Marijuana (THC) NEG White Blood Count 4.10 K/uL Red Blood Count 4.51 M/uL Hemoglobin 13.6 g/dL Hematocrit 38.9 % Mean Corpuscular Volume 86.3 fL Mean Corpuscular Hemoglobin 30.2 pg Mean Corpuscular Hemoglobin Concent 35.0 g/dl RDW Standard Deviation 41.5 fL RDW Coefficient of Variation 13.1 % Platelet Count 150 K/uL Mean Platelet Volume 10.0 fL Prothrombin Time 11.6 SECONDS Prothromb Time International Ratio 1.1 Activated Partial Thromboplast Time 28.9 SECONDS Partial Thromboplastin Ratio 1.1 Sodium Level 142 mmol/L Potassium Level 3.2 mmol/L Chloride Level 107 mmol/L Carbon Dioxide Level 28 mmol/L Anion Gap 7.0 mmol/L Blood Urea Nitrogen 11 mg/dl Creatinine 0.85 mg/dl Estimated GFR () 118.6 Estimated GFR (Non- 102.3 BUN/Creatinine Ratio 12.4 Random Glucose 84 mg/dl Calcium Level 9.3 mg/dl Magnesium Level 2.5 mg/dl Total Bilirubin 0.5 mg/dl Aspartate Amino Transf (AST/SGOT) 16 U/L Alanine Aminotransferase (ALT/SGPT) 37 U/L Alkaline Phosphatase 138 U/L Total Creatine Kinase 144 U/L Troponin I < 0.015 ng/ml < 0.015 ng/ml Total Protein 7.3 gm/dl Albumin 3.9 gm/dl Globulin 3.4 gm/dl Albumin/Globulin Ratio 1.1 Lipase 139 U/L Thyroid Stimulating Hormone (TSH) 1.530 uIu/ml Salicylates Level < 1.7 mg/dl Acetaminophen Level < 2 ug/ml [place] Level 0.7 mMOL/L Lactic Acid Level 0.8 mmol/L Ammonia 14.0 umol/L Ethyl Alcohol mg/dL < 3.0 mg/dl Test 03/21/17 23:53 03/22/17 05:28 Bedside Glucose 106 mg/dl White Blood Count 4.62 K/uL Red Blood Count 4.42 M/uL Hemoglobin 13.4 g/dL Hematocrit 38.7 % Mean Corpuscular Volume 87.6 fL Mean Corpuscular Hemoglobin 30.3 pg Mean Corpuscular Hemoglobin Concent 34.6 g/dl Platelet Count 140 K/uL Mean Platelet Volume 9.6 fL Neutrophils (%) (Auto) 61.9 % Lymphocytes (%) (Auto) 27.1 % Monocytes (%) (Auto) 9.1 % Eosinophils (%) (Auto) 1.7 % Basophils (%) (Auto) 0.2 % Neutrophils # (Auto) 2.86 K/uL Lymphocytes # (Auto) 1.25 K/uL Monocytes # (Auto) 0.42 K/uL Eosinophils # (Auto) 0.08 K/uL Basophils # (Auto) 0.01 K/uL RDW Standard Deviation 43.1 fL RDW Coefficient of Variation 13.4 % Immature Granulocyte % (Auto) 0.0 % Immature Granulocyte # (Auto) 0.00 K/uL Sodium Level 148 mmol/L Potassium Level 3.4 mmol/L Chloride Level 114 mmol/L Carbon Dioxide Level 29 mmol/L Anion Gap 5.0 mmol/L Blood Urea Nitrogen 3 mg/dl Creatinine 0.69 mg/dl Est Creatinine Clear Calc Drug Dose 133.7 ml/min Estimated GFR () 129.2 Estimated GFR (Non- 111.5 BUN/Creatinine Ratio 4.6 Random Glucose 98 mg/dl Calcium Level 8.2 mg/dl Phosphorus Level 2.5 mg/dl Magnesium Level 2.1 mg/dl Total Bilirubin 0.4 mg/dl Direct Bilirubin 0.1 mg/dl Aspartate Amino Transf (AST/SGOT) 32 U/L Alanine Aminotransferase (ALT/SGPT) 32 U/L Alkaline Phosphatase 113 U/L Total Protein 6.1 gm/dl Albumin 3.2 gm/dl
[2017-03-22] MEDS ORDERED: NURSING VERBAL MED ORDER ONE (10:15)
[2017-03-22] MEDS ORDERED: POTASSIUM CHLORIDE 10 MEQ TABCR PO STA (10:46)
[2017-03-22] MEDS ORDERED: PANTOprazole INJ 40 MG in SYRINGE 0 ML IV SCH (11:00)
--- NOTE | 2017-03-22 13:02 | Progress Note ---
Subjective Date of Service: Mar 22, 2017. Subjective Pt evaluation today including: conversation w/ patient, physical exam, chart review, lab review, review of studies, review of inpatient medication list Pt resting in bed Crying stating "i dont know how life got to this" Denies any suicidal ideations No chest pain, abd pain, shortness of breath or palpitations Problem List Medical Problems: (1) Acute anxiety Status: Acute (2) Altered mental status Status: Acute (3) Bradycardia Status: Acute (4) Change in mental status Status: Acute (5) Depression Status: Acute (6) Depression Status: Acute (7) Emotional crisis as acute reaction to exceptional (gross) stress Status: Acute (8) Hypothermia Status: Acute (9) Polysubstance abuse Status: Acute (10) Suicidal ideation Status: Acute Review of Systems Constitutional: No fever, No chills, No sweats, No weight loss, No weakness Eyes: No worsening of vision, No eye pain, No redness, No discharge ENT: No hearing loss, No unusual epistaxis, No nasal symptoms, No sore throat, No tinnitus Respiratory: No cough, No sputum, No wheezing, No shortness of breath Cardiac: No chest pain, No orthopnea, No PND, No edema Abdomen: No pain, No nausea, No vomiting, No diarrhea, No constipation Musculoskeletal: No joint pain, No muscle pain, No swelling, No calf pain Male : No dysuria, No urinary frequency, No incontinence, No slowing stream Neurologic: No memory loss, No paralysis, No weakness, No numbness/tingling, No vertigo Psychiatric: + depression symptoms, + anxiety, + substance abuse, No anhedonism Endo: No fatigue, No excessive thirst Skin: No rash, No itch Objective Vital Signs Date Time Temp Pulse Resp B/P (MAP) Pulse Ox O2 Delivery O2 Flow Rate FiO2 03/22/17 11:50 97 Room Air 03/22/17 10:01 61 15 123/70 (87) 100 Room Air 03/22/17 10:00 63 18 100 03/22/17 08:01 36.9 65 22 124/74 (91) 100 Room Air 03/22/17 08:00 64 22 100 03/22/17 08:00 Room Air 03/22/17 07:45 98 Room Air 03/22/17 07:01 61 15 123/74 (90) 100 03/22/17 07:00 64 17 99 03/22/17 06:00 52 15 139/74 (95) 99 Room Air 03/22/17 04:00 36.7 48 15 138/82 (100) 98 Room Air 03/22/17 04:00 98 Room Air 03/22/17 02:00 53 15 130/73 (92) 97 Room Air 03/22/17 00:00 98 Room Air 03/22/17 00:00 36.6 50 14 130/74 (92) 98 Room Air 03/21/17 22:00 53 16 116/74 (88) 96 Room Air 03/21/17 20:00 36.7 56 22 124/73 (90) 95 Room Air 03/21/17 20:00 96 Room Air 03/21/17 18:01 36.7 58 22 118/66 (83) 99 Nasal Cannula 2.0 03/21/17 17:53 58 24 118/67 (84) 99 Nasal Cannula 2.0 03/21/17 17:06 36.6 67 16 137/68 98 Room Air 03/21/17 16:29 64 15 134/77 98 Nasal Cannula 4.0 03/21/17 16:14 62 14 124/77 100 Nasal Cannula 03/21/17 15:52 58 14 137/83 100 Nasal Cannula 3.0 03/21/17 15:35 56 14 133/85 100 Nasal Cannula 03/21/17 15:19 52 16 142/85 100 Nasal Cannula 4.0 03/21/17 14:40 48 13 148/85 100 Nasal Cannula 4.0 03/21/17 14:26 54 16 157/91 100 Nasal Cannula 4.0 03/21/17 14:01 57 14 142/94 97 Nasal Cannula 6.0 03/21/17 13:49 100 Nasal Cannula 4.0 03/21/17 13:45 52 14 138/81 100 Room Air 03/21/17 13:39 55 20 139/93 99 Room Air 03/21/17 13:33 52 16 149/95 97 Room Air 03/21/17 13:33 67 03/21/17 13:26 96 Room Air 03/21/17 13:20 35.7 52 14 131/89 98 Room Air Physical Exam General Appearance: WD/WN, + mild distress Neck: supple, no adenopathy, thyroid normal, no JVD Respiratory/Chest: chest non-tender, lungs clear, normal breath sounds, no respiratory distress Cardiovascular: regular rate, rhythm, no edema, no gallop, no JVD Abdomen: normal bowel sounds, non tender, soft, no organomegaly Extremities: normal range of motion, non-tender, normal inspection, no pedal edema Neurologic/Psychiatric: no motor/sensory deficits, alert, oriented x 3, + depressed affect Laboratory Results Last 24 Hours Test 03/21/17 13:38 03/21/17 13:40 03/21/17 14:30 03/21/17 19:03 Urine Color YELLOW Urine Appearance CLEAR Urine pH 6.5 Urine Specific [place] 1.011 Urine Protein NEG Urine Glucose (UA) NEG Urine Ketones TRACE Urine Occult Blood NEG Urine Nitrite NEG Urine Bilirubin NEG Urine Urobilinogen NEG Urine Leukocyte Esterase NEG Urine Opiates Screen NEG Urine Methadone, Qualitative NEG Urine Barbiturates NEG Urine Phencyclidine (PCP) Level NEG Ur Amphetamine/Methamphetamine POS MDMA (Ecstasy) Screen POS Urine Benzodiazepines Screen NEG Urine Cocaine Metabolite NEG Urine Marijuana (THC) NEG White Blood Count 4.10 K/uL Red Blood Count 4.51 M/uL Hemoglobin 13.6 g/dL Hematocrit 38.9 % Mean Corpuscular Volume 86.3 fL Mean Corpuscular Hemoglobin 30.2 pg Mean Corpuscular Hemoglobin Concent 35.0 g/dl RDW Standard Deviation 41.5 fL RDW Coefficient of Variation 13.1 % Platelet Count 150 K/uL Mean Platelet Volume 10.0 fL Prothrombin Time 11.6 SECONDS Prothromb Time International Ratio 1.1 Activated Partial Thromboplast Time 28.9 SECONDS Partial Thromboplastin Ratio 1.1 Sodium Level 142 mmol/L Potassium Level 3.2 mmol/L Chloride Level 107 mmol/L Carbon Dioxide Level 28 mmol/L Anion Gap 7.0 mmol/L Blood Urea Nitrogen 11 mg/dl Creatinine 0.85 mg/dl Estimated GFR () 118.6 Estimated GFR (Non- 102.3 BUN/Creatinine Ratio 12.4 Random Glucose 84 mg/dl Calcium Level 9.3 mg/dl Magnesium Level 2.5 mg/dl Total Bilirubin 0.5 mg/dl Aspartate Amino Transf (AST/SGOT) 16 U/L Alanine Aminotransferase (ALT/SGPT) 37 U/L Alkaline Phosphatase 138 U/L Total Creatine Kinase 144 U/L Troponin I < 0.015 ng/ml < 0.015 ng/ml Total Protein 7.3 gm/dl Albumin 3.9 gm/dl Globulin 3.4 gm/dl Albumin/Globulin Ratio 1.1 Lipase 139 U/L Thyroid Stimulating Hormone (TSH) 1.530 uIu/ml Salicylates Level < 1.7 mg/dl Acetaminophen Level < 2 ug/ml [place] Level 0.7 mMOL/L Lactic Acid Level 0.8 mmol/L Ammonia 14.0 umol/L Ethyl Alcohol mg/dL < 3.0 mg/dl Test 03/21/17 23:53 03/22/17 05:28 Bedside Glucose 106 mg/dl White Blood Count 4.62 K/uL Red Blood Count 4.42 M/uL Hemoglobin 13.4 g/dL Hematocrit 38.7 % Mean Corpuscular Volume 87.6 fL Mean Corpuscular Hemoglobin 30.3 pg Mean Corpuscular Hemoglobin Concent 34.6 g/dl Platelet Count 140 K/uL Mean Platelet Volume 9.6 fL Neutrophils (%) (Auto) 61.9 % Lymphocytes (%) (Auto) 27.1 % Monocytes (%) (Auto) 9.1 % Eosinophils (%) (Auto) 1.7 % Basophils (%) (Auto) 0.2 % Neutrophils # (Auto) 2.86 K/uL Lymphocytes # (Auto) 1.25 K/uL Monocytes # (Auto) 0.42 K/uL Eosinophils # (Auto) 0.08 K/uL Basophils # (Auto) 0.01 K/uL RDW Standard Deviation 43.1 fL RDW Coefficient of Variation 13.4 % Immature Granulocyte % (Auto) 0.0 % Immature Granulocyte # (Auto) 0.00 K/uL Sodium Level 148 mmol/L Potassium Level 3.4 mmol/L Chloride Level 114 mmol/L Carbon Dioxide Level 29 mmol/L Anion Gap 5.0 mmol/L Blood Urea Nitrogen 3 mg/dl Creatinine 0.69 mg/dl Est Creatinine Clear Calc Drug Dose 133.7 ml/min Estimated GFR () 129.2 Estimated GFR (Non- 111.5 BUN/Creatinine Ratio 4.6 Random Glucose 98 mg/dl Calcium Level 8.2 mg/dl Phosphorus Level 2.5 mg/dl Magnesium Level 2.1 mg/dl Total Bilirubin 0.4 mg/dl Direct Bilirubin 0.1 mg/dl Aspartate Amino Transf (AST/SGOT) 32 U/L Alanine Aminotransferase (ALT/SGPT) 32 U/L Alkaline Phosphatase 113 U/L Total Protein 6.1 gm/dl Albumin 3.2 gm/dl Assessment and Plan 51 y/o M Hx depression, Bipolar disease, HIV, chronic back pain, polysubstance abuse, multiple suicide attempts and chronic ideations presents with polysubstance abuse and suicide attempt. Pt was admitted 03/05 entirely unresponsive following an overdose of a combination of substances which he could not clarify. He was found at home by his partner and was hypotensive, hypothermic and bradycardic upon arriving in the ER. He recovered spontaneously after receiving supportive care for 2 days and denied any recollection of the events leading to his hospitalization. His partner stated previously that he may have been experimenting with GHB recently. He takes opiates, several psychiatric medications, cocaine and methamphetamine. He also is said to exhibit frequent suicidal ideation and apparently carries a pill bottle around which is a well researched med combination intended for the purpose of suicide. He may have ingested synthetic marijuana prior to his recent overdose. Polysubstance abuse/Unresponsive episode - Likely due to ingestion of mult substances. UDS pos for MDMA and meth. Reported hx of substance abuse/suicidal ideation last month. Pt states he only took meth. At this time pt is hemodynamically stable and currently denying any homicidal or suicidal ideations. Pt reports only taking meth [employer] because "I wanted to sleep and not wake up." Admitted to ICU for monitoring. Psych consulted for suicide attempt. Hypothermia/hypotension/bradycardia - Resolved, likely related to above. No evidence of infection/sepsis, seizure or arrhythmia. Was given IVF and warming blanket. Bipolar disease, depression, suicidal ideation - All psychoactive meds held at present - will need mental health consult when he wakes up. HIV - Noncompliance with meds in the past, although pt denies it, f/u with Dr Chaidez DVT ppx with lovenox
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
[2017-03-22] MEDS: EMTRICITABINE/TENOFOVIR TAB PO SCH (20:47)
[2017-03-22] MEDS: ENOXAPARIN 40 MG/0.4 ML SYR SQ SCH (20:47)
[2017-03-22] MEDS ORDERED: DIPHENOXYLATE/ATROPINE 2.5/0.025MG TAB PO PRN (22:15)
[2017-03-22] MEDS ORDERED: SIMETHICONE 80 MG CHEW PO PRN (22:15)
[2017-03-23] VITALS (9 sets, daily range): BP systolic 115–143; BP diastolic 68–84; PULSE 53–71; TEMP 36.6–37.4; O2SAT 97–100
[2017-03-23 05:42] LABS: BASO % 0.4 %; BASO ABS # 0.02 K/uL (0-0.2); COMPLETE YES; HEMATOCRIT 37.8 % (42-52); LYMPH ABS # 1.69 K/uL (1.2-3.4); MEAN CELL VOLUME 87.5 fL (80-100); MEAN CORPUSCULAR HEMOGLOBIN 30.1 pg (25-34); MEAN CORPUSCULAR HGB CONC 34.4 g/dl (32-36); MONO % 9.7 %; NEUT % 49.9 %; PLATELET COUNT 127 K/uL (130-400); RED BLOOD COUNT 4.32 M/uL (4.7-6.1); WHITE BLOOD COUNT 4.45 K/uL (4.8-10.8)
[2017-03-23 06:15] LABS: BUN/CREATININE RATIO 16.3 (10-20); CALCIUM 7.8 mg/dl (8.5-10.1); CREATININE 0.55 mg/dl (0.60-1.40); MAGNESIUM 2.2 mg/dl (1.8-2.4); POTASSIUM 3.3 mmol/L (3.5-5.1)
[2017-03-23] MEDS: VITAMIN B COMPLEX TAB PO SCH (06:21)
[2017-03-23] MEDS: CHOLECALCIFEROL 400 INTER.UNIT TAB PO SCH (08:35)
[2017-03-23] MEDS: FUROSEMIDE 20 MG TAB PO SCH ×2 (08:35→08:44)
[2017-03-23] MEDS: LORATADINE 10 MG TAB PO SCH (08:36)
[2017-03-23] MEDS: PANTOprazole SOD 40 MG TAB PO SCH (08:36)
[2017-03-23] MEDS: EMTRICITABINE/TENOFOVIR TAB PO SCH (08:36)
[2017-03-23] MEDS: DULOXETINE HCL 60 MG PO SCH (08:37)
[2017-03-23] MEDS: ASCORBIC ACID 500 MG TAB PO SCH ×2 (08:37→21:12)
[2017-03-23] MEDS: AMLODIPINE BESYLATE 5 MG TAB PO SCH (08:37)
[2017-03-23] MEDS: TERBINAFINE 250 MG PO SCH (08:39)
[2017-03-23] MEDS: DOLUTEGRAVIR SODIUM 50 MG TAB PO SCH (08:39)
[2017-03-23] MEDS: CYANOCOBALAMIN 500 MCG TAB (VIT B-12) PO SCH ×2 (08:40→21:09)
[2017-03-23] MEDS ORDERED: NON-FORMULARY MEDICATION (Biotin 1,000 MCG) PO SCH (09:00)
[2017-03-23] MEDS ORDERED: EMTRICITABINE/TENOFOVIR TAB PO SCH (09:00)
[2017-03-23] MEDS ORDERED: TERBINAFINE 250 MG PO SCH (09:00)
[2017-03-23] MEDS ORDERED: DESTROY THIS MEDICATION ONE (11:15)
[2017-03-23] MEDS ORDERED: POTASSIUM CHLORIDE 10 MEQ TABCR PO STA (11:49)
--- NOTE | 2017-03-23 15:00 | Progress Note ---
Subjective Date of Service: Mar 23, 2017. Subjective Pt evaluation today including: conversation w/ patient, physical exam, chart review, lab review, review of studies, review of inpatient medication list Pt reports still feeling distressed and that everyone left him Started crying during interview No acute events overnight Problem List Medical Problems: (1) Acute anxiety Status: Acute (2) Altered mental status Status: Acute (3) Bradycardia Status: Acute (4) Change in mental status Status: Acute (5) Depression Status: Acute (6) Depression Status: Acute (7) Emotional crisis as acute reaction to exceptional (gross) stress Status: Acute (8) Hypothermia Status: Acute (9) Polysubstance abuse Status: Acute (10) Suicidal ideation Status: Acute Review of Systems Constitutional: No fever, No chills, No sweats, No weight loss ENT: No hearing loss, No unusual epistaxis, No nasal symptoms, No sore throat Respiratory: No cough, No sputum, No wheezing, No shortness of breath Cardiac: No chest pain, No orthopnea, No PND, No edema Abdomen: No pain, No nausea, No vomiting, No diarrhea, No constipation Musculoskeletal: No joint pain, No muscle pain, No swelling, No calf pain Male : No dysuria, No urinary frequency, No incontinence, No nocturia more than once/night Neurologic: No memory loss, No paralysis, No weakness, No numbness/tingling Psychiatric: + depression symptoms, + anxiety, + substance abuse, No anhedonism , No insomnia Endo: No fatigue, No excessive thirst Skin: No rash, No itch, No new/changing skin lesions, No color change Objective Vital Signs Date Time Temp Pulse Resp B/P (MAP) Pulse Ox O2 Delivery O2 Flow Rate FiO2 03/23/17 12:00 100 Room Air 03/23/17 11:29 37.0 56 16 130/74 (92) 100 03/23/17 08:18 37.0 57 16 133/77 (95) 100 03/23/17 08:00 100 Room Air 03/23/17 04:15 37.4 53 18 143/84 (103) 100 Room Air 03/23/17 04:00 Room Air 03/23/17 00:00 Room Air 03/22/17 23:13 37.0 54 18 127/78 (94) 98 Room Air 03/22/17 23:07 52 03/22/17 20:00 Room Air 03/22/17 19:00 37.1 72 18 122/80 (94) 97 Room Air 03/22/17 15:30 Room Air Physical Exam General Appearance: WD/WN, no apparent distress Eyes: normal inspection, PERRL, EOMI, sclerae normal Neck: supple, no adenopathy, thyroid normal, no JVD Respiratory/Chest: chest non-tender, lungs clear, normal breath sounds, no respiratory distress Cardiovascular: regular rate, rhythm, no edema, no gallop, no JVD Abdomen: normal bowel sounds, non tender, soft, no organomegaly Neurologic/Psychiatric: no motor/sensory deficits, alert, oriented x 3, + depressed affect Laboratory Results Last 24 Hours Test 03/23/17 05:10 03/23/17 07:56 03/23/17 11:42 White Blood Count 4.45 K/uL Red Blood Count 4.32 M/uL Hemoglobin 13.0 g/dL Hematocrit 37.8 % Mean Corpuscular Volume 87.5 fL Mean Corpuscular Hemoglobin 30.1 pg Mean Corpuscular Hemoglobin Concent 34.4 g/dl Platelet Count 127 K/uL Mean Platelet Volume 10.0 fL Neutrophils (%) (Auto) 49.9 % Lymphocytes (%) (Auto) 38.0 % Monocytes (%) (Auto) 9.7 % Eosinophils (%) (Auto) 2.0 % Basophils (%) (Auto) 0.4 % Neutrophils # (Auto) 2.22 K/uL Lymphocytes # (Auto) 1.69 K/uL Monocytes # (Auto) 0.43 K/uL Eosinophils # (Auto) 0.09 K/uL Basophils # (Auto) 0.02 K/uL RDW Standard Deviation 42.9 fL RDW Coefficient of Variation 13.2 % Immature Granulocyte % (Auto) 0.0 % Immature Granulocyte # (Auto) 0.00 K/uL Sodium Level 144 mmol/L Potassium Level 3.3 mmol/L Chloride Level 111 mmol/L Carbon Dioxide Level 28 mmol/L Anion Gap 5.0 mmol/L Blood Urea Nitrogen 9 mg/dl Creatinine 0.55 mg/dl Est Creatinine Clear Calc Drug Dose 167.8 ml/min Estimated GFR () 141.8 Estimated GFR (Non- 122.4 BUN/Creatinine Ratio 16.3 Random Glucose 77 mg/dl Calcium Level 7.8 mg/dl Phosphorus Level 3.0 mg/dl Magnesium Level 2.2 mg/dl Total Bilirubin 0.4 mg/dl Direct Bilirubin 0.1 mg/dl Aspartate Amino Transf (AST/SGOT) 18 U/L Alanine Aminotransferase (ALT/SGPT) 26 U/L Alkaline Phosphatase 104 U/L Total Protein 5.6 gm/dl Albumin 2.9 gm/dl Bedside Glucose 63 mg/dl 68 mg/dl Assessment and Plan 51 y/o M Hx depression, Bipolar disease, HIV, chronic back pain, polysubstance abuse, multiple suicide attempts and chronic ideations presents with polysubstance abuse and suicide attempt. Pt was admitted 03/05 entirely unresponsive following an overdose of a combination of substances which he could not clarify. He was found at home by his partner and was hypotensive, hypothermic and bradycardic upon arriving in the ER. He recovered spontaneously after receiving supportive care for 2 days and denied any recollection of the events leading to his hospitalization. His partner stated previously that he may have been experimenting with GHB recently. He takes opiates, several psychiatric medications, cocaine and methamphetamine. He also is said to exhibit frequent suicidal ideation and apparently carries a pill bottle around which is a well researched med combination intended for the purpose of suicide. He may have ingested synthetic marijuana prior to his recent overdose. Polysubstance abuse/Unresponsive episode - Likely due to ingestion of mult substances. UDS pos for MDMA and meth. Reported hx of substance abuse/suicidal ideation last month. Pt states he only took meth. At this time pt is hemodynamically stable and currently denying any homicidal or suicidal ideations. Pt reports only taking meth ORTHOPEDIC NURSE because "I wanted to sleep and not wake up." Admitted to ICU for monitoring. Psych consulted for suicide attempt. Will need inpatient psych treatment. 302 to be completed. Hypothermia/hypotension/bradycardia - Resolved, likely related to above. No evidence of infection/sepsis, seizure or arrhythmia. Was given IVF and warming blanket. Bipolar disease, depression, suicidal ideation - All psychoactive meds held at present - will need mental health consult when he wakes up. HIV - Noncompliance with meds in the past, although pt denies it, f/u with Dr Chaidez DVT ppx with lovenox
[2017-03-23] MEDS: ENOXAPARIN 40 MG/0.4 ML SYR SQ SCH (21:00)
[2017-03-23] MEDS: CALCIUM 600MG + VIT D 400 IU TAB PO SCH (21:08)
[2017-03-23] MEDS: LITHIUM CARBONATE 300 MG PO SCH (21:11)
[2017-03-24] VITALS (9 sets, daily range): BP systolic 123–134; BP diastolic 73–82; PULSE 57–66; TEMP 36.7–37.1; O2SAT 96–99
[2017-03-24] MEDS: VITAMIN B COMPLEX TAB PO SCH (06:04)
[2017-03-24 07:37] LABS: BASO % 0.2 %; BASO ABS # 0.01 K/uL (0-0.2); COMPLETE YES; EOS % 1.2 %; HEMATOCRIT 39.7 % (42-52); IG% 0.2 %; LYMPH % 30.2 %; LYMPH ABS # 1.56 K/uL (1.2-3.4); MEAN CELL VOLUME 86.1 fL (80-100); MEAN CORPUSCULAR HEMOGLOBIN 29.3 pg (25-34); MEAN PLATELET VOLUME 9.8 fL (7.4-10.4); MONO % 6.2 %; PLATELET COUNT 155 K/uL (130-400); RED BLOOD COUNT 4.61 M/uL (4.7-6.1); WHITE BLOOD COUNT 5.17 K/uL (4.8-10.8)
[2017-03-24 08:14] LABS: BUN/CREATININE RATIO 14.9 (10-20); CALCIUM 8.6 mg/dl (8.5-10.1); CREATININE 0.76 mg/dl (0.60-1.40); MAGNESIUM 2.2 mg/dl (1.8-2.4); POTASSIUM 3.6 mmol/L (3.5-5.1)
[2017-03-24 08:18] LABS: PHOSPHORUS 2.7 mg/dl (2.5-4.9)
[2017-03-24] MEDS: FUROSEMIDE 20 MG TAB PO SCH (08:42)
[2017-03-24] MEDS: PANTOprazole SOD 40 MG TAB PO SCH (08:46)
[2017-03-24] MEDS: EMTRICITABINE/TENOFOVIR TAB PO SCH (08:46)
[2017-03-24] MEDS: LORATADINE 10 MG TAB PO SCH (08:46)
[2017-03-24] MEDS: AMLODIPINE BESYLATE 5 MG TAB PO SCH (08:46)
[2017-03-24] MEDS: CYANOCOBALAMIN 500 MCG TAB (VIT B-12) PO SCH ×2 (08:47→21:44)
[2017-03-24] MEDS: ASCORBIC ACID 500 MG TAB PO SCH ×2 (08:48→21:46)
[2017-03-24] MEDS: CHOLECALCIFEROL 400 INTER.UNIT TAB PO SCH (08:48)
[2017-03-24] MEDS: DULOXETINE HCL 60 MG PO SCH (08:50)
[2017-03-24] MEDS: DOLUTEGRAVIR SODIUM 50 MG TAB PO SCH (08:51)
[2017-03-24] MEDS: TERBINAFINE 250 MG PO SCH (08:52)
--- NOTE | 2017-03-24 12:47 | Progress Note ---
Subjective Date of Service: Mar 24, 2017. Subjective Pt evaluation today including: conversation w/ patient, physical exam, chart review, lab review, review of studies, conversation w/ information resource consultant Resting comfortably in bed Asking if its possible to go home No acute events overnight States partner came in last night and resolves their issues Problem List Medical Problems: (1) Acute anxiety Status: Acute (2) Altered mental status Status: Acute (3) Bradycardia Status: Acute (4) Change in mental status Status: Acute (5) Depression Status: Acute (6) Depression Status: Acute (7) Emotional crisis as acute reaction to exceptional (gross) stress Status: Acute (8) Hypothermia Status: Acute (9) Polysubstance abuse Status: Acute (10) Suicidal ideation Status: Acute Review of Systems Constitutional: No fever, No chills, No sweats, No weight loss, No weakness Eyes: No worsening of vision, No eye pain, No redness, No discharge ENT: No hearing loss, No unusual epistaxis, No nasal symptoms, No sore throat, No tinnitus, No dental problems Respiratory: No cough, No sputum, No wheezing, No shortness of breath, No dyspnea on exertion Cardiac: No chest pain, No orthopnea, No PND, No edema, No claudication Abdomen: No pain, No nausea, No vomiting, No diarrhea, No constipation Musculoskeletal: No joint pain, No muscle pain, No swelling, No calf pain Male : No dysuria, No urinary frequency, No incontinence, No slowing stream Neurologic: No memory loss, No paralysis, No weakness, No numbness/tingling Psychiatric: + depression symptoms, + anxiety, + substance abuse, No insomnia Skin: No rash, No itch Objective Vital Signs Date Time Temp Pulse Resp B/P (MAP) Pulse Ox O2 Delivery O2 Flow Rate FiO2 03/24/17 11:09 36.8 61 16 130/76 (94) 98 03/24/17 08:00 Room Air 03/24/17 07:13 36.8 63 16 134/78 (96) 98 03/24/17 04:18 36.9 57 18 125/73 (90) 99 Room Air 03/24/17 04:00 Room Air 03/24/17 00:10 36.9 57 18 133/82 (99) 98 Room Air 03/24/17 00:00 Room Air 03/23/17 20:00 97 Room Air 03/23/17 19:22 36.7 64 18 136/82 (100) 97 Room Air 03/23/17 16:00 97 Room Air 03/23/17 15:01 36.6 71 20 115/68 (84) 97 Room Air Physical Exam General Appearance: WD/WN, no apparent distress Eyes: normal inspection, PERRL, EOMI, sclerae normal Neck: supple, no adenopathy, thyroid normal, no JVD Respiratory/Chest: chest non-tender, lungs clear, normal breath sounds, no respiratory distress Cardiovascular: regular rate, rhythm, no edema, no gallop, no JVD Abdomen: normal bowel sounds, non tender, soft, no organomegaly Extremities: normal range of motion, non-tender, normal inspection, no pedal edema Neurologic/Psychiatric: no motor/sensory deficits, alert, normal mood/affect, oriented x 3 Laboratory Results Last 24 Hours Test 03/23/17 16:16 03/23/17 20:21 03/24/17 07:17 03/24/17 07:29 Bedside Glucose 84 mg/dl 94 mg/dl 69 mg/dl White Blood Count 5.17 K/uL Red Blood Count 4.61 M/uL Hemoglobin 13.5 g/dL Hematocrit 39.7 % Mean Corpuscular Volume 86.1 fL Mean Corpuscular Hemoglobin 29.3 pg Mean Corpuscular Hemoglobin Concent 34.0 g/dl Platelet Count 155 K/uL Mean Platelet Volume 9.8 fL Neutrophils (%) (Auto) 62.0 % Lymphocytes (%) (Auto) 30.2 % Monocytes (%) (Auto) 6.2 % Eosinophils (%) (Auto) 1.2 % Basophils (%) (Auto) 0.2 % Neutrophils # (Auto) 3.21 K/uL Lymphocytes # (Auto) 1.56 K/uL Monocytes # (Auto) 0.32 K/uL Eosinophils # (Auto) 0.06 K/uL Basophils # (Auto) 0.01 K/uL RDW Standard Deviation 41.3 fL RDW Coefficient of Variation 13.1 % Immature Granulocyte % (Auto) 0.2 % Immature Granulocyte # (Auto) 0.01 K/uL Sodium Level 142 mmol/L Potassium Level 3.6 mmol/L Chloride Level 109 mmol/L Carbon Dioxide Level 30 mmol/L Anion Gap 3.0 mmol/L Blood Urea Nitrogen 11 mg/dl Creatinine 0.76 mg/dl Est Creatinine Clear Calc Drug Dose 133.2 ml/min Estimated GFR () 124.2 Estimated GFR (Non- 107.1 BUN/Creatinine Ratio 14.9 Random Glucose 81 mg/dl Calcium Level 8.6 mg/dl Phosphorus Level 2.7 mg/dl Magnesium Level 2.2 mg/dl Total Bilirubin 0.4 mg/dl Direct Bilirubin 0.2 mg/dl Aspartate Amino Transf (AST/SGOT) 15 U/L Alanine Aminotransferase (ALT/SGPT) 25 U/L Alkaline Phosphatase 95 U/L Total Protein 6.1 gm/dl Albumin 3.1 gm/dl Assessment and Plan 51 y/o M Hx depression, Bipolar disease, HIV, chronic back pain, polysubstance abuse, multiple suicide attempts and chronic ideations presents with polysubstance abuse and suicide attempt. Pt was admitted 03/05 entirely unresponsive following an overdose of a combination of substances which he could not clarify. He was found at home by his partner and was hypotensive, hypothermic and bradycardic upon arriving in the ER. He recovered spontaneously after receiving supportive care for 2 days and denied any recollection of the events leading to his hospitalization. His partner stated previously that he may have been experimenting with GHB recently. He takes opiates, several psychiatric medications, cocaine and methamphetamine. He also is said to exhibit frequent suicidal ideation and apparently carries a pill bottle around which is a well researched med combination intended for the purpose of suicide. He may have ingested synthetic marijuana prior to his recent overdose. Polysubstance abuse/Unresponsive episode - Likely due to ingestion of mult substances. UDS pos for MDMA and meth. Reported hx of substance abuse/suicidal ideation last month. Pt states he only took meth. At this time pt is hemodynamically stable and still currently denying any homicidal or suicidal ideations. Pt reports only taking meth [employer] because "I wanted to sleep and not wake up." Psych consulted for suicide attempt. Will need inpatient psych treatment. 302 to be completed. Pt can NOT LEAVE AMA. Transferred to tele as pt is hemodynamically stable. Also all home meds including seroquel restarted. Hypothermia/hypotension/bradycardia - Resolved, likely related to above. No evidence of infection/sepsis, seizure or arrhythmia. Was given IVF and warming blanket. Bipolar disease, depression, suicidal ideation - All psychoactive meds held at present - will need mental health consult when he wakes up. HIV - Noncompliance with meds in the past, although pt denies it, f/u with Dr Chaidez DVT ppx with lovenox
--- NOTE | 2017-03-24 14:09 | Psychiatric Progress Notes ---
Psychiatric Progress Note Date of Service Mar 24, 2017. Notes ID: Patient reviewed with liaison nurse. initial consult completed by EULALIA Salinas on 03/22. CC: awaiting psychiatric unit placement HPI: denies acute issues overnight, still stating preference for the [facility] ROS: denied MSE: alert, cooperative, blunted/depressed affect, speech non-spontaneous, thoughts organized. Denies SI in hospital currently. Imp: hx of multiple significant suicide attempts, 1 particularly recent Plan: continues to require inpatient mental health hospitalization for safety and monitoring/further treatment if patient unwilling to sign 201 (currently verbalizes he is), 302 commitment procedure should be initiated.
[2017-03-24] MEDS: ENOXAPARIN 40 MG/0.4 ML SYR SQ SCH (21:44)
[2017-03-24] MEDS: CALCIUM 600MG + VIT D 400 IU TAB PO SCH (21:46)
[2017-03-24] MEDS: LITHIUM CARBONATE 300 MG PO SCH (21:48)
[2017-03-24] MEDS ORDERED: DULOXETINE HCL 60 MG CAP PO ONE (22:06)
[2017-03-24] MEDS ORDERED: ROPINIROLE HCL 1 MG TAB PO ONE (22:08)
[2017-03-24] MEDS ORDERED: DULOXETINE HCL 60 MG PO STA (22:12)
[2017-03-24] MEDS ORDERED: NURSING VERBAL MED ORDER ONE (22:30)
[2017-03-24] MEDS ORDERED: ACETAMINOPHEN 325 MG TAB PO STA (23:23)
[2017-03-25] VITALS (7 sets, daily range): BP systolic 119–135; BP diastolic 67–80; PULSE 56–65; TEMP 36.7–37.4; O2SAT 95–98
[2017-03-25] MEDS: VITAMIN B COMPLEX TAB PO SCH (06:15)
[2017-03-25 07:44] LABS: BASO % 0.2 %; BASO ABS # 0.01 K/uL (0-0.2); COMPLETE YES; EOS % 1.4 %; HEMATOCRIT 39.6 % (42-52); LYMPH % 32.9 %; LYMPH ABS # 1.42 K/uL (1.2-3.4); MEAN CELL VOLUME 86.5 fL (80-100); MEAN CORPUSCULAR HEMOGLOBIN 29.7 pg (25-34); MEAN CORPUSCULAR HGB CONC 34.3 g/dl (32-36); MEAN PLATELET VOLUME 10.1 fL (7.4-10.4); MONO % 6.5 %; PLATELET COUNT 155 K/uL (130-400); RED BLOOD COUNT 4.58 M/uL (4.7-6.1); WHITE BLOOD COUNT 4.32 K/uL (4.8-10.8)
[2017-03-25 08:12] LABS: CALCIUM 8.2 mg/dl (8.5-10.1); CREATININE 0.67 mg/dl (0.60-1.40); MAGNESIUM 2.2 mg/dl (1.8-2.4); POTASSIUM 3.3 mmol/L (3.5-5.1)
[2017-03-25 08:16] LABS: PHOSPHORUS 3.1 mg/dl (2.5-4.9)
[2017-03-25] MEDS: PANTOprazole SOD 40 MG TAB PO SCH (08:50)
[2017-03-25] MEDS: CHOLECALCIFEROL 400 INTER.UNIT TAB PO SCH (08:50)
[2017-03-25] MEDS: ASCORBIC ACID 500 MG TAB PO SCH ×2 (08:50→21:03)
[2017-03-25] MEDS: LORATADINE 10 MG TAB PO SCH (08:50)
[2017-03-25] MEDS: CYANOCOBALAMIN 500 MCG TAB (VIT B-12) PO SCH ×2 (08:50→21:03)
[2017-03-25] MEDS: AMLODIPINE BESYLATE 5 MG TAB PO SCH (08:50)
[2017-03-25] MEDS: EMTRICITABINE/TENOFOVIR TAB PO SCH (08:51)
[2017-03-25] MEDS: TERBINAFINE 250 MG PO SCH (08:52)
[2017-03-25] MEDS: DOLUTEGRAVIR SODIUM 50 MG TAB PO SCH (08:53)
[2017-03-25] MEDS: FUROSEMIDE 20 MG TAB PO SCH (08:54)
[2017-03-25] MEDS ORDERED: DULOXETINE HCL 60 MG CAP PO SCH ×2 (09:00→21:00)
--- NOTE | 2017-03-25 11:59 | Progress Note ---
Subjective Date of Service: Mar 25, 2017. Subjective Pt evaluation today including: conversation w/ patient, physical exam, chart review, lab review, review of studies, review of inpatient medication list Problem List Medical Problems: (1) Acute anxiety Status: Acute (2) Altered mental status Status: Acute (3) Bradycardia Status: Acute (4) Change in mental status Status: Acute (5) Depression Status: Acute (6) Depression Status: Acute (7) Emotional crisis as acute reaction to exceptional (gross) stress Status: Acute (8) Hypothermia Status: Acute (9) Polysubstance abuse Status: Acute (10) Suicidal ideation Status: Acute Review of Systems Constitutional: No fever, No chills ENT: No hearing loss, No unusual epistaxis, No nasal symptoms, No sore throat Respiratory: No cough, No sputum, No wheezing, No shortness of breath, No dyspnea on exertion Cardiac: No chest pain, No orthopnea, No PND, No edema Abdomen: No pain, No nausea, No vomiting, No diarrhea, No constipation Musculoskeletal: No joint pain, No muscle pain, No swelling, No calf pain Male : No dysuria, No urinary frequency, No incontinence, No slowing stream Neurologic: No memory loss, No paralysis, No weakness, No numbness/tingling Psychiatric: + depression symptoms, + anxiety, No anhedonism, No insomnia Endo: No fatigue, No excessive thirst Skin: No rash, No itch Objective Vital Signs Date Time Temp Pulse Resp B/P (MAP) Pulse Ox O2 Delivery O2 Flow Rate FiO2 03/25/17 11:19 37.1 56 16 126/76 (93) 95 03/25/17 08:00 95 Room Air 03/25/17 07:22 37.1 57 16 129/77 (94) 95 03/25/17 04:46 36.7 60 20 132/76 (94) 96 Room Air 03/25/17 04:00 Room Air 03/25/17 00:00 Room Air 03/24/17 23:26 36.7 62 18 123/75 (91) 96 Room Air 03/24/17 20:00 98 Room Air 03/24/17 19:22 37.1 66 20 127/74 (91) 98 Room Air 03/24/17 16:00 98 Room Air 03/24/17 15:06 36.8 60 16 134/76 (95) 98 03/24/17 12:00 Room Air Physical Exam General Appearance: WD/WN, no apparent distress Eyes: normal inspection, PERRL, EOMI, sclerae normal Neck: supple, no adenopathy, thyroid normal, no JVD Respiratory/Chest: chest non-tender, lungs clear, normal breath sounds, no respiratory distress Cardiovascular: regular rate, rhythm, no edema, no gallop, no JVD Abdomen: normal bowel sounds, non tender, soft, no organomegaly Neurologic/Psychiatric: no motor/sensory deficits, alert, oriented x 3, + depressed affect Skin: normal color, warm/dry, no rash Lymphatic: no adenopathy Laboratory Results Last 24 Hours Test 03/24/17 20:12 03/25/17 07:10 Bedside Glucose 91 mg/dl White Blood Count 4.32 K/uL Red Blood Count 4.58 M/uL Hemoglobin 13.6 g/dL Hematocrit 39.6 % Mean Corpuscular Volume 86.5 fL Mean Corpuscular Hemoglobin 29.7 pg Mean Corpuscular Hemoglobin Concent 34.3 g/dl Platelet Count 155 K/uL Mean Platelet Volume 10.1 fL Neutrophils (%) (Auto) 59.0 % Lymphocytes (%) (Auto) 32.9 % Monocytes (%) (Auto) 6.5 % Eosinophils (%) (Auto) 1.4 % Basophils (%) (Auto) 0.2 % Neutrophils # (Auto) 2.55 K/uL Lymphocytes # (Auto) 1.42 K/uL Monocytes # (Auto) 0.28 K/uL Eosinophils # (Auto) 0.06 K/uL Basophils # (Auto) 0.01 K/uL RDW Standard Deviation 41.7 fL RDW Coefficient of Variation 13.1 % Immature Granulocyte % (Auto) 0.0 % Immature Granulocyte # (Auto) 0.00 K/uL Sodium Level 143 mmol/L Potassium Level 3.3 mmol/L Chloride Level 110 mmol/L Carbon Dioxide Level 27 mmol/L Anion Gap 6.0 mmol/L Blood Urea Nitrogen 11 mg/dl Creatinine 0.67 mg/dl Est Creatinine Clear Calc Drug Dose 150.8 ml/min Estimated GFR () 130.8 Estimated GFR (Non- 112.8 BUN/Creatinine Ratio 16.0 Random Glucose 81 mg/dl Calcium Level 8.2 mg/dl Phosphorus Level 3.1 mg/dl Magnesium Level 2.2 mg/dl Total Bilirubin 0.4 mg/dl Direct Bilirubin 0.1 mg/dl Aspartate Amino Transf (AST/SGOT) 13 U/L Alanine Aminotransferase (ALT/SGPT) 20 U/L Alkaline Phosphatase 92 U/L Total Protein 6.2 gm/dl Albumin 3.2 gm/dl Assessment and Plan 51 y/o M Hx depression, Bipolar disease, HIV, chronic back pain, polysubstance abuse, multiple suicide attempts and chronic ideations presents with polysubstance abuse and suicide attempt. Pt was admitted 03/05 entirely unresponsive following an overdose of a combination of substances which he could not clarify. He was found at home by his partner and was hypotensive, hypothermic and bradycardic upon arriving in the ER. He recovered spontaneously after receiving supportive care for 2 days and denied any recollection of the events leading to his hospitalization. His partner stated previously that he may have been experimenting with GHB recently. He takes opiates, several psychiatric medications, cocaine and methamphetamine. He also is said to exhibit frequent suicidal ideation and apparently carries a pill bottle around which is a well researched med combination intended for the purpose of suicide. He may have ingested synthetic marijuana prior to his recent overdose. Polysubstance abuse/Unresponsive episode - Likely due to ingestion of mult substances. UDS pos for MDMA and meth. Reported hx of substance abuse/suicidal ideation last month. Pt states he only took meth. At this time pt is hemodynamically stable and still currently denying any homicidal or suicidal ideations. Pt reports only taking meth [employer] because "I wanted to sleep and not wake up." Psych consulted for suicide attempt. Will need inpatient psych treatment. 302 to be completed. Pt can NOT LEAVE AMA. Transferred to [facility] as pt is hemodynamically stable. Also all home meds including seroquel restarted. Hypothermia/hypotension/bradycardia - Resolved, likely related to above. No evidence of infection/sepsis, seizure or arrhythmia. Was given IVF and warming blanket. Bipolar disease, depression, suicidal ideation - All psychoactive meds held at present - will need mental health consult when he wakes up. HIV - Noncompliance with meds in the past, although pt denies it, f/u with Dr Chaidez DVT ppx with lovenox
--- NOTE | 2017-03-25 12:09 | Psychiatric Progress Notes ---
Psychiatric Progress Note Date of Service Mar 25, 2017. Notes met with patient again today after being called by liaison last pm. Bed search had been exhausted and patient finally was amenable to [facility] rehab. He has consistently denied SI and following re-review of records from last hospitalization, I feel it is in his therapeutic interest to transition directly to inpatient rehab as was recommended last stay. He himself contacted [facility] as was scheduled to start his outpatient intake tomorrow and agreed to referral. He would agree to referral to other facilities as just wants to move on. He no longer meets inpatient mental health criteria (particularly under an involuntary commitment) as would be stepping down to a structured/supervised setting. He is psychiatrically stable for discharge to [facility] rehab.
[2017-03-25] MEDS ORDERED: NURSING VERBAL MED ORDER ONE (20:00)
[2017-03-25] MEDS: ENOXAPARIN 40 MG/0.4 ML SYR SQ SCH (21:00)
[2017-03-25] MEDS ORDERED: ROPINIROLE HCL 1 MG TAB PO SCH (21:00)
[2017-03-25] MEDS ORDERED: DULOXETINE HCL 60 MG PO SCH (21:00)
[2017-03-25] MEDS: CALCIUM 600MG + VIT D 400 IU TAB PO SCH (21:02)
[2017-03-25] MEDS: LITHIUM CARBONATE 300 MG PO SCH (21:04)
[2017-03-26 04:25] VITALS: BP 142/82; PULSE 62; TEMP 36.7; O2SAT 98
[2017-03-26 05:41] LABS: BASO % 0.2 %; BASO ABS # 0.01 K/uL (0-0.2); COMPLETE YES; EOS % 1.6 %; HEMATOCRIT 38.3 % (42-52); LYMPH % 34.6 %; MEAN CELL VOLUME 86.7 fL (80-100); MEAN CORPUSCULAR HEMOGLOBIN 29.6 pg (25-34); MEAN CORPUSCULAR HGB CONC 34.2 g/dl (32-36); MEAN PLATELET VOLUME 9.8 fL (7.4-10.4); MONO % 8.8 %; NEUT % 54.8 %; PLATELET COUNT 142 K/uL (130-400); RED BLOOD COUNT 4.42 M/uL (4.7-6.1); WHITE BLOOD COUNT 4.34 K/uL (4.8-10.8)
[2017-03-26 06:07] LABS: BUN/CREATININE RATIO 14.1 (10-20); CALCIUM 8.3 mg/dl (8.5-10.1); CREATININE 0.76 mg/dl (0.60-1.40); MAGNESIUM 2.3 mg/dl (1.8-2.4); POTASSIUM 3.5 mmol/L (3.5-5.1)
[2017-03-26] MEDS: VITAMIN B COMPLEX TAB PO SCH (06:19)
[2017-03-26 07:39] VITALS: BP 138/81; PULSE 60; TEMP 36.9; O2SAT 98
[2017-03-26] MEDS: CYANOCOBALAMIN 500 MCG TAB (VIT B-12) PO SCH (08:05)
[2017-03-26] MEDS: ASCORBIC ACID 500 MG TAB PO SCH (08:05)
[2017-03-26] MEDS: FUROSEMIDE 20 MG TAB PO SCH (08:06)
[2017-03-26] MEDS: CHOLECALCIFEROL 400 INTER.UNIT TAB PO SCH (08:06)
[2017-03-26] MEDS: EMTRICITABINE/TENOFOVIR TAB PO SCH (08:06)
[2017-03-26] MEDS: AMLODIPINE BESYLATE 5 MG TAB PO SCH (08:07)
[2017-03-26] MEDS: LORATADINE 10 MG TAB PO SCH (08:07)
[2017-03-26] MEDS: PANTOprazole SOD 40 MG TAB PO SCH (08:07)
[2017-03-26] MEDS: TERBINAFINE 250 MG PO SCH (08:09)
[2017-03-26] MEDS: DOLUTEGRAVIR SODIUM 50 MG TAB PO SCH (08:10)
[2017-03-26 10:42] VITALS: BP 122/68; PULSE 84; TEMP 36.7; O2SAT 98
--- NOTE | 2017-03-26 12:08 | Discharge Instructions ---
Discharge Instructions Date of Service Mar 26, 2017. Admission Reason for Admission: Overdose,Unresponsive Discharge Discharge Diagnosis / Problem: Overdose Discharge Goals Goal(s): Decrease discomfort, Improve function, Increase independence Activity Recommendations Activity Limitations: resume your previous activity . Instructions / Follow-Up Instructions / Follow-Up Polysubstance Abuse/Suicidal Thoughts: - It is important to keep your appointments with [facility] for outpatient rehab. Recommend developing a good support system to help work through these issues. Addiction is a hard and daily struggle and having people to discuss this with will help. - Recommend to keep your appointment with your psychiatrist tomorrow and follow- up with the new provider that you get established with. Again it is important to keep these appointments. - Continue your previously prescribed medications at this time. Home Medications: - Continue all medications that were previously prescribed as we did not make changes to these. If you have thoughts of using drugs or thoughts of suicide, PLEASE CALL 911 OR CRISIS HOTLINE. Talk to someone before taking action to harm yourself. Current Hospital Diet Patient's current hospital diet: Regular Diet Discharge Diet Recommended Diet: Regular Diet Pending Studies Studies pending at discharge: no Laboratory Results Lipid Panel Test 01/18/17 11:26 Range/Units Triglycerides Level 83 0-150 mg/dl Cholesterol Level 148 0-200 mg/dl HDL Cholesterol 54 mg/dl Cholesterol/HDL Ratio 2.7 LDL Cholesterol, Calculated 77 mg/dl Medical Emergencies . Who to Call and When: Medical Emergencies: If at any time you feel your situation is an emergency, please call 911 immediately. . Non-Emergent Contact Non-Emergency issues call your: Primary Care Provider Call Non-Emergent contact if: you have a fever, your pain is concerning you, you have any medication questions . . "Provider Documentation" section prepared by Christal Mendoza. . VTE Core Measure Inpt VTE Proph given/why not?: Enoxaparin (Lovenox)SQ
[2017-03-26 13:03] VITALS: BP 122/68; PULSE 84; TEMP 36.7; O2SAT 98
--- NOTE | 2017-03-26 13:58 | Discharge Summary ---
Discharge Summary Date of Service Mar 26, 2017. Discharge Summary Admission Date: Mar 21, 2017 at 16:48 Discharge Date: Mar 26, 2017 Discharge Disposition: Home Principal Diagnosis: Intentional Drug Overdose with Suicide Attempt Problems/Secondary Diagnoses: 1. HIV 2. HLD 3. HTN 4. Bipolar Disorder 5. Depression with Suicidal Ideations 6. Polysubstance Abuse Immunizations: Have You Had Influenza Vaccine: No History of Tetanus Vaccine?: Yes Tetanus Immunization Date: Jun 20, 2011 History of Pneumococcal: Yes Pneumococcal Date: Jun 20, 2011 History of Hepatitis B Vaccine: Yes Hepatitis Immunization Date: Jun 20, 2011 Procedures: HEAD WITHOUT CONTRAST (CT) FINDINGS: No acute intracranial hemorrhage, midline shift, mass, large territorial ischemia or abnormal extra-axial collection. Unchanged focal subcentimeter area of low attenuation within the inferior left lentiform nucleus suggest prominent perivascular space, unchanged. The calvarium is intact. Mastoid air cells and middle ear cavities are clear. There is mild mucosal thickening of the sphenoid and right maxillary sinuses. The soft tissues are within normal limits. Orbits are symmetric. IMPRESSION: No acute intracranial abnormality. The above report was generated using voice recognition software. It may contain grammatical, syntax or spelling errors. CHEST ONE VIEW PORTABLE FINDINGS: The bones soft tissues and hemidiaphragms are normal. The cardiomediastinal silhouette is normal. The lungs are clear. The pulmonary vasculature is normal. IMPRESSION: Negative chest. Consultations: 1. Electrical Maintenance Engineer 2. Psychiatry Medication Reconciliation Continued Medications: Acetaminophen (Tylenol) 500 Mg Tab 1000 MG PO Q4 PRN for Pain or Fever, TAB Amlodipine (Norvasc) 5 Mg Tab 5 MG PO QAM Ascorbic Acid (Vitamin C) 500 Mg Tab 1 TAB PO BID B-Complex Vitamins (Vitamin B Complex) 1 Tab Tab 1 TABS PO DAILYBB Biotin (Biotin) 1 Mg Cap 1000 MCG PO QAM Calcium/Vitamin D (Os-Bharath 500 Plus D) Tab 1 TAB PO QPM, TAB Cholecalciferol (Vitamin D3) 1,000 Unit Tab 1 TAB PO QAM Cholecalciferol (Vitamin D3 400) 400 Unit Cap 400 UNIT PO DAILY Cyanocobalamin (Vitamin B-12) 500 Mcg Tab 1000 MCG PO BID, TAB Diphenoxylate/Atropine (Lomotil) Tab 1-2 TAB PO Q4H PRN for Diarrhea, TAB Dolutegravir Sodium (Tivicay) 50 Mg Tab 50 MG PO QAM Duloxetine Hcl (Cymbalta) 60 Mg Cap 1 CAP PO DAILY for 1 Day, #1 CAP Patient can use home supply. Emtricitabine/Temofovir (Truvada 200/300MG) Tab 1 TABLET PO QAM Furosemide (Furosemide) 20 Mg Tab 20 MG PO DAILY Ketoconazole (Topical) (Ketoconazole) 2 % Sha 1 APPLN TOP DAILY, 3 Refills facial wash Hardtner Carbonate (Hardtner Carbonate ER) 300 Mg Tab 900 MG PO HS for 1 Day, #1 TAB Patient to use home supply. Loratadine (Claritin) 10 Mg Tab 10 MG PO QAM, TAB Methylcellulose (Laxative) (Citrucel) 500 Mg Tab 500 MG PO QID Misc Natural Products (Osteo Bi-Flex Advanced Tr) 1 Tab Tab 1 TAB PO DAILY Multiple Vitamins W/ Minerals (Multi Adult Gummies) 1 Chw Chw 1 TAB PO BID Pantoprazole (Pantoprazole Sodium) 40 Mg Tab 40 MG PO DAILY Potassium Gluconate (Potassium Gluconate) 550 Mg Tab 550 MG PO DAILY Probiotic Product (Probiotic) 1 Tab Tab 1 TAB PO QPM Simethicone (Gas-X) 80 Mg Chw 80 MG PO QID PRN for Gas or Constipation Terbinafine Hcl (Terbinafine Hcl) 250 Mg Tab 1 TAB PO QAM Vitamin E (E-400) 400 Unit Cap 400 UNIT PO BID Zinc Gluconate (Zinc) 50 Mg Tab 50 MG PO DAILY Discharge Exam Review of Systems: Constitutional: No fever, No chills, No sweats Eyes: No worsening of vision ENT: No nasal symptoms, No sore throat, No trouble swallowing Respiratory: No cough, No shortness of breath Cardiovascular: No chest pain, No palpitations Abdomen: No pain, No nausea, No vomiting, No diarrhea, No constipation Musculoskeletal: No swelling Genitourinary - Male: No dysuria Psychiatric: + substance abuse Hematologic / Lymphatic: No abnormal bleeding/bruising, No clotting problems Integumentary: No rash Physical Exam: General Appearance: WD/WN, no apparent distress Eyes: sclerae normal ENT: hearing grossly normal Neck: supple, no JVD, trachea midline Respiratory/Chest: lungs clear, normal breath sounds, no respiratory distress, no accessory muscle use Cardiovascular: regular rate, rhythm, no gallop, no murmur Abdomen / GI: normal bowel sounds, non tender, soft Extremities: no calf tenderness, no pedal edema Neurologic/Psychiatric: alert, normal mood/affect, oriented x 3 Skin: normal color, warm/dry Hospital Course ADMISSION: 51 y/o M Hx depression, Bipolar disease, HIV, chronic back pain, polysubstance abuse, multiple suicide attempts and chronic ideation. Pt was admitted 03/05 entirely unresponsive following an overdose of a combination of substances which he could not clarify He was found at home by his partner and was hypotensive, hypothermic and bradycardic upon arriving in the ER. He recovered spontaneously after receiving supportive care for 2 days and denied any recollection of the events leading to his hospitalization. His partner stated previously that he may have been experimenting with GHB recently. He takes opiates, several psychiatric medications, cocaine and methamphetamine. He also is said to exhibit frequent suicidal ideation and apparently carries a pill bottle around which is a well researched med combination intended for the purpose of suicide. He may have ingested synthetic marijuana prior to his recent overdose. We are again unable to determine which medication or drug may have lead to his current unresponsive state. He has not required intubation at the time of admission and does respond slightly to pain whereas he was entirely unresponsive previously. His UDS is + for methamphetamines only at present. He was again hypotensive, hypothermic and bradycardic on admission. He will proceed to the ICU. HOSPITAL COURSE: Mr. Bower was admitted for intentional polysubstance overdose as a suicidal attempt. He was initially placed in the ICU for monitoring. He maintained oxygenation with a nasal airway until he became responsive. He reports taking "anything I could find" and methamphetamines due to stress with court hearings/allegations of abuse to his brother and concern for his partner having unprotected sex. Psychiatry was consulted and discussed acute situation and chronic issues. Patient is no longer presenting as a threat to himself or others. She reports that he would like to seek help for his drug use and currently denying suicidal thoughts or plan. Discussion with psychiatry and outpatient facilities have concern that problems are more related to drug abuse issues. He as completed his outpatient intake from [facility] in [place] but was willing to do inpatient. [facility] was unable to take him and he would not like to go to other drug abuse rehab facilities. He has a current psychiatrist but due to non-compliance he is being referred to a new psychiatrist and will be established. Patient does express frustration with being diagnosed with Borderline Personality Disorder and is not in agreement to this diagnosis. Patient is medically suitable for discharge. Psychiatrically he denies suicidal ideations and does express desire for substance abuse assistance. As he is no longer qualifies for 302, he does not want a voluntary commitment. Related to drug rehab we cannot force this modality as he is in the right state of mind to make decisions. Patient would be at risk for readmission given polysubstance abuse but does not present as a threat to self or others. He has a follow-up appointment tomorrow with [facility] and psychiatry. Polysubstance abuse/Unresponsive episode - Likely due to ingestion of mult substances. UDS pos for MDMA and meth. Reported hx of substance abuse/suicidal ideation last month. Pt states he only took meth. At this time pt is hemodynamically stable and still currently denying any homicidal or suicidal ideations. 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 Will need inpatient psych treatment. 302 to be completed. Pt can NOT LEAVE AMA. Transferred to tele as pt is hemodynamically stable. Also all home meds including seroquel restarted. Hypothermia/hypotension/bradycardia - Resolved, likely related to above. No evidence of infection/sepsis, seizure or arrhythmia. Was given IVF and warming blanket. Bipolar disease, depression, suicidal ideation - All psychoactive meds held at present - will need mental health consult when he wakes up. HIV - Noncompliance with meds in the past, although pt denies it, f/u with Dr Chaidez DVT ppx with lovenox Total Time Spent: Greater than 30 minutes This includes examination of the patient, discharge planning, medication reconciliation, and communication with other providers. Discharge Instructions Please refer to the electronic Patient Visit Report (Discharge Instructions) for additional information.
== END 2017-03-26 15:59 | disposition home or self-care (01) | DRG 918 ==
LOC: EDBD 13:20 → C.ED 13:24 → C.MSICU 16:48 → ENRESERV 16:57 → EDBEDREQ 03-22 18:03 → EDBEDREQSVC 03-22 18:03 → ENRESERV 03-22 18:17 → C.MED 03-22 18:47
PROVIDERS: ADMIT Internal Medicine; ATTEND Hospitalist
DX: T50.902A Poisoning by unspecified drugs, medicaments and biological substances, intentional self-harm, initial encounter (principal); F60.3 Borderline personality disorder; E78.5 Hyperlipidemia, unspecified; I10 Essential (primary) hypertension; G25.81 Restless legs syndrome; F31.9 Bipolar disorder, unspecified; Z21 Asymptomatic human immunodeficiency virus [HIV] infection status; Z79.899 Other long term (current) drug therapy; I95.9 Hypotension, unspecified; R00.1 Bradycardia, unspecified; R68.0 Hypothermia, not associated with low environmental temperature; Z91.5 Personal history of self-harm; Z91.14 Patient's other noncompliance with medication regimen; Z98.84 Bariatric surgery status

== ENCOUNTER 2017-06-21 08:57 | Emergency (ER) | payer OTHER ==
[~2017-06-21] VITALS: Ht 170.2 cm; Wt 113.3 kg
[~2017-06-21 08:57] MED LIST changes: -CYAN100020 PO; +CYAN500T PO; -MISCTAB26 PO
[2017-06-21 09:29] VITALS: TEMP 36.7; Ht 170.2 cm; Wt 113.3 kg
[2017-06-21] MEDS ORDERED: LORAZEPAM 1 MG TAB SL STA ×2 (09:46→15:13)
[2017-06-21 10:00] LABS: BASO % 0.1 %; BASO ABS # 0.01 K/uL (0-0.2); COMPLETE YES; HEMATOCRIT 43.4 % (42-52); IG% 0.2 %; LYMPH % 11.4 %; LYMPH ABS # 1.42 K/uL (1.2-3.4); MEAN CELL VOLUME 84.1 fL (80-100); MEAN CORPUSCULAR HEMOGLOBIN 30.4 pg (25-34); MEAN CORPUSCULAR HGB CONC 36.2 g/dl (32-36); MEAN PLATELET VOLUME 10.2 fL (7.4-10.4); MONO % 8.1 %; NEUT % 80.2 %; PLATELET COUNT 231 K/uL (130-400); RED BLOOD COUNT 5.16 M/uL (4.7-6.1); WHITE BLOOD COUNT 12.44 K/uL (4.8-10.8)
[2017-06-21 10:18] LABS: BUN/CREATININE RATIO 17.3 (10-20); CREATININE 0.95 mg/dl (0.60-1.40); POTASSIUM 3.6 mmol/L (3.5-5.1)
[2017-06-21 10:29] LABS: THYROID STIMULATING HORMONE 1.52 uIu/ml (0.300-4.500)
--- NOTE | 2017-06-21 10:43 | DIAGNOSTIC IMAGING REPORT ---
LEFT FOREARM 2 VIEWS CLINICAL HISTORY: Left arm pain. FINDINGS: AP and lateral portable views of the left forearm are obtained. No prior studies are available for comparison at the time of dictation. The skeletal structures are well mineralized. No distracted fracture is seen. There is questionable cortical buckling of the distal ulnar metaphysis seen only on the lateral view. Overlying soft tissue edema is noted. The wrist and elbow joints are grossly maintained. IMPRESSION: 1. No distracted fracture is seen. 2. There is subtle cortical buckling with overlying soft tissue swelling suggested involving the distal ulnar metaphysis on the lateral view. Nondistracted fracture is not excluded. Correlate for point tenderness at this site. Consider dedicated wrist views for further assessment. Electronically signed by: Jefferson Mcdermott M.D. 06/21/2017 10:41 AM Dictated Date/Time: 06/21/2017 10:39 AM
--- NOTE | 2017-06-21 10:45 | DIAGNOSTIC IMAGING REPORT ---
L HUMERUS MIN 2 VIEWS ROUTINE CLINICAL HISTORY: Left humeral pain COMPARISON: None. DISCUSSION: No fractures are visualized. There is no dislocation. No destructive lesions are delineated. IMPRESSION: No fractures or dislocations identified. Electronically signed by: Ronnell Mora M.D. 06/21/2017 10:44 AM Dictated Date/Time: 06/21/2017 10:43 AM
--- NOTE | 2017-06-21 10:48 | DIAGNOSTIC IMAGING REPORT ---
CT SCAN OF THE BRAIN WITHOUT IV CONTRAST CLINICAL HISTORY: Change in mental status. COMPARISON STUDY: CT of the brain dated 03/21/2017. TECHNIQUE: Unenhanced axial CT scan of the brain is performed from the vertex to the skull base. A dose lowering technique was utilized adhering to the principles of ALARA. CT DOSE: 776.86 mGycm FINDINGS: Brain parenchyma: The brain parenchyma is normal in appearance. There is no hemorrhage, mass effect, or evidence of acute territorial ischemia by CT criteria. Spencer-white matter is preserved. No extra-axial fluid collection is seen. Ventricles, sulci, cisterns: Normal in configuration. Intracranial vasculature: The visualized intracranial vasculature at the skull base is normal in appearance. Calvarium: No depressed calvarial fracture is seen. Soft tissues: There is edema seen within the right parieto-occipital scalp. Sinuses and mastoids: Trace mucosal thickening is seen in the right maxillary antrum and the ethmoid sinuses. The remaining visualized paranasal sinuses are clear. The mastoid air cells are well pneumatized. Orbits: The bony orbits are grossly intact. IMPRESSION: 1. There is no hemorrhage, mass effect, or evidence of acute territorial ischemia by CT criteria. 2. There is significant soft tissue edema identified within the right parieto-occipital scalp. Clinical correlation will be required. Electronically signed by: Jefferson Mcdermott M.D. 06/21/2017 10:47 AM Dictated Date/Time: 06/21/2017 10:43 AM
--- NOTE | 2017-06-21 10:49 | DIAGNOSTIC IMAGING REPORT ---
LEFT SHOULDER 3 VIEWS HISTORY: Pt c/o left shoulder pain COMPARISON: None. FINDINGS: There is no fracture or dislocation. Soft tissues are unremarkable. The left clavicle is intact. IMPRESSION: No fracture or dislocation within the left shoulder. Electronically signed by: Rajendra Diaz M.D. 06/21/2017 10:47 AM Dictated Date/Time: 06/21/2017 10:46 AM
--- NOTE | 2017-06-21 11:05 | EMERGENCY ROOM VISIT NOTE ---
History Report prepared by Asael: Maria Esther Laughlin Under the Supervision of: Dr. Walker Simpson M.D. First contact with patient: 09:01 Chief Complaint: MENTAL HEALTH EVALUATION Stated Complaint: MENTAL HEALTH History of Present Illness The patient is a 51 year old male who presents to the Emergency Room for a mental health evaluation. Per police, the patient had a domestic dispute with his partner 3 days ago. The patient left their home and went to an abandoned house next door to get away from his partner. He has been staying there for the past few days. Police found the patient this morning on the roof of this abandoned house. He had punched a window out to get out onto the roof. Police found the patient to be acting paranoid and confused. He was wearing clothes that were covered in dried feces, blood, and urine. The patient was not sure how he got on the roof or what he was doing there. The patient then made statements that he was going to jump off of the roof. Police brought him to the ED for further evaluation. The patient is currently denying any SI or HI. He reports left arm pain and left leg pain that he rates as a 9/10 in severity. He has a history of recreational substance abuse but denies any recent drug use. 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 Currently denying SI and HI. C/o left arm and leg pain. Review of Systems See HPI for pertinent positives & negatives. A total of 10 systems reviewed and were otherwise negative. Past Medical & Surgical Medical Problems: (1) Borderline personality disorder (2) Human Immunodeficiency Virus [Hiv] Disease (3) Hyperlipidemia Nec/Nos (4) Hypertension Nos (5) Kidney stones (6) Methamphetamine abuse (7) Overdose (8) Peripheral neuropathy (9) Pneumonia (10) Restless leg syndrome (11) Suicide attempt by multiple drug overdose (12) Unresponsive Surgical Problems: (1) H/O gastric bypass Family History Cancer Diabetes mellitus FH ischemic heart disease FH: arthritis FH: seizures Hypertension Lung disease Other cardiovascular diseases Trach/bronchog mal Social History Smoking Status: Never Smoker Alcohol Use: none Drug Use: other Marital Status: in relationship Housing Status: lives with significant other Occupation Status: unemployed Current/Historical Medications Scheduled Amlodipine (Norvasc), 5 MG PO QAM Ascorbic Acid (Vitamin C), 1 TAB PO BID B-Complex Vitamins (Vitamin B Complex), 1 TABS PO DAILYBB Biotin (Biotin), 1,000 MCG PO QAM Calcium/Vitamin D (Os-Bharath 500 Plus D), 1 TAB PO QPM Cholecalciferol (Vitamin D3), 1 TAB PO QAM Cholecalciferol (Vitamin D3 400), 400 UNIT PO DAILY Cyanocobalamin (Vitamin B-12), 1,000 MCG PO BID Dolutegravir Sodium (Tivicay), 50 MG PO QAM Duloxetine Hcl (Cymbalta), 1 CAP PO DAILY Emtricitabine/Temofovir (Truvada 200/300MG), 1 TABLET PO QAM Furosemide (Furosemide), 20 MG PO DAILY Ketoconazole (Topical) (Ketoconazole), 1 APPLN TOP DAILY [place] Carbonate ([place] Carbonate ER), 900 MG PO HS Loratadine (Claritin), 10 MG PO QAM Methylcellulose (Laxative) (Citrucel), 500 MG PO QID Misc Natural Products (Osteo Bi-Flex Advanced Tr), 1 TAB PO DAILY Multiple Vitamins W/ Minerals (Multi Adult Gummies), 1 TAB PO BID Pantoprazole (Pantoprazole Sodium), 40 MG PO DAILY Potassium Gluconate (Potassium Gluconate), 550 MG PO DAILY Probiotic Product (Probiotic), 1 TAB PO QPM Terbinafine Hcl (Terbinafine Hcl), 1 TAB PO QAM Vitamin E (E-400), 400 UNIT PO BID Zinc Gluconate (Zinc), 50 MG PO DAILY Scheduled PRN Acetaminophen (Tylenol), 1,000 MG PO Q4 PRN for Pain or Fever Diphenoxylate/Atropine (Lomotil), 1-2 TAB PO Q4H PRN for Diarrhea Simethicone (Gas-X), 80 MG PO QID PRN for Gas or Constipation Allergies Coded Allergies: Mercury (Verified Allergy, Intermediate, Facial swelling, N/V, 03/21/17) "mercury, as in seafood, eye gtts, etc." Physical Exam Vital Signs Date Time Temp Pulse Resp B/P (MAP) Pulse Ox O2 Delivery O2 Flow Rate FiO2 06/21/17 21:29 85 18 132/85 98 06/21/17 09:29 36.7 94 18 112/81 99 Room Air Physical Exam GENERAL: Patient is a healthy-appearing well-nourished 51 year old male. HEAD: Normocephalic atraumatic EYES: Ocular movements intact pupils equal and react to light OROPHARYNX mucous membranes are moist no exudates present no erythema or edema present NECK: Supple no nuchal rigidity CHEST: Good equal expansion LUNGS: Clear and equal to auscultation CARDIAC: Normal S1 and S2 ABDOMEN: Soft nontender no guarding BACK: No CVA tenderness EXTREMITIES: No pain upon palpation normal muscle strength in all groups no clubbing cyanosis or edema. Left arm is ecchymotic. NEURO: Patient is following commands and answering questions appropriately. Alert and oriented x3 Cranial Nerves 2-12 grossly intact PSYCH: Patient denies being suicidal or homicidal. Medical Decision & Procedures ER Provider Diagnostic Interpretation: CT SCAN OF THE BRAIN WITHOUT IV CONTRAST CLINICAL HISTORY: Change in mental status. COMPARISON STUDY: CT of the brain dated 03/21/2017. TECHNIQUE: Unenhanced axial CT scan of the brain is performed from the vertex to the skull base. A dose lowering technique was utilized adhering to the principles of ALARA. CT DOSE: 776.86 mGycm FINDINGS: Brain parenchyma: The brain parenchyma is normal in appearance. There is no hemorrhage, mass effect, or evidence of acute territorial ischemia by CT criteria. Spencer-white matter is preserved. No extra-axial fluid collection is seen. Ventricles, sulci, cisterns: Normal in configuration. Intracranial vasculature: The visualized intracranial vasculature at the skull base is normal in appearance. Calvarium: No depressed calvarial fracture is seen. Soft tissues: There is edema seen within the right parieto-occipital scalp. Sinuses and mastoids: Trace mucosal thickening is seen in the right maxillary antrum and the ethmoid sinuses. The remaining visualized paranasal sinuses are clear. The mastoid air cells are well pneumatized. Orbits: The bony orbits are grossly intact. IMPRESSION: 1. There is no hemorrhage, mass effect, or evidence of acute territorial ischemia by CT criteria. 2. There is significant soft tissue edema identified within the right parieto-occipital scalp. Clinical correlation will be required. Electronically signed by: Jefferson Mcdermott M.D. 06/21/2017 10:47 AM Dictated Date/Time: 06/21/2017 10:43 AM LEFT FOREARM 2 VIEWS CLINICAL HISTORY: Left arm pain. FINDINGS: AP and lateral portable views of the left forearm are obtained. No prior studies are available for comparison at the time of dictation. The skeletal structures are well mineralized. No distracted fracture is seen. There is questionable cortical buckling of the distal ulnar metaphysis seen only on the lateral view. Overlying soft tissue edema is noted. The wrist and elbow joints are grossly maintained. IMPRESSION: 1. No distracted fracture is seen. 2. There is subtle cortical buckling with overlying soft tissue swelling suggested involving the distal ulnar metaphysis on the lateral view. Nondistracted fracture is not excluded. Correlate for point tenderness at this site. Consider dedicated wrist views for further assessment. Electronically signed by: Jefferson Mcdermott M.D. 06/21/2017 10:41 AM Dictated Date/Time: 06/21/2017 10:39 AM L HUMERUS MIN 2 VIEWS ROUTINE CLINICAL HISTORY: Left humeral pain COMPARISON: None. DISCUSSION: No fractures are visualized. There is no dislocation. No destructive lesions are delineated. IMPRESSION: No fractures or dislocations identified. Electronically signed by: Ronnell Mora M.D. 06/21/2017 10:44 AM Dictated Date/Time: 06/21/2017 10:43 AM LEFT SHOULDER 3 VIEWS HISTORY: Pt c/o left shoulder pain COMPARISON: None. FINDINGS: There is no fracture or dislocation. Soft tissues are unremarkable. The left clavicle is intact. IMPRESSION: No fracture or dislocation within the left shoulder. Electronically signed by: Rajendra Diaz M.D. 06/21/2017 10:47 AM Dictated Date/Time: 06/21/2017 10:46 AM Laboratory Results 06/21/17 09:46 Red Blood Count 5.16, Mean Corpuscular Volume 84.1, Mean Corpuscular Hemoglobin 30.4, Mean Corpuscular Hemoglobin Concent 36.2, Mean Platelet Volume 10.2, Neutrophils (%) (Auto) 80.2, Lymphocytes (%) (Auto) 11.4, Monocytes (%) (Auto) 8.1, Eosinophils (%) (Auto) 0.0, Basophils (%) (Auto) 0.1, Neutrophils # (Auto) 9.97, Lymphocytes # (Auto) 1.42, Monocytes # (Auto) 1.01, Eosinophils # (Auto) 0.00, Basophils # (Auto) 0.01 06/21/17 09:46 Test 06/21/17 09:35 06/21/17 09:46 06/21/17 11:10 Bedside Glucose 133 mg/dl (70-99) White Blood Count 12.44 K/uL (4.8-10.8) Red Blood Count 5.16 M/uL (4.7-6.1) Hemoglobin 15.7 g/dL (14.0-18.0) Hematocrit 43.4 % (42-52) Mean Corpuscular Volume 84.1 fL (80-100) Mean Corpuscular Hemoglobin 30.4 pg (25-34) Mean Corpuscular Hemoglobin Concent 36.2 g/dl (32-36) Platelet Count 231 K/uL (130-400) Mean Platelet Volume 10.2 fL (7.4-10.4) Neutrophils (%) (Auto) 80.2 % Lymphocytes (%) (Auto) 11.4 % Monocytes (%) (Auto) 8.1 % Eosinophils (%) (Auto) 0.0 % Basophils (%) (Auto) 0.1 % Neutrophils # (Auto) 9.97 K/uL (1.4-6.5) Lymphocytes # (Auto) 1.42 K/uL (1.2-3.4) Monocytes # (Auto) 1.01 K/uL (0.11-0.59) Eosinophils # (Auto) 0.00 K/uL (0-0.5) Basophils # (Auto) 0.01 K/uL (0-0.2) RDW Standard Deviation 43.7 fL (36.4-46.3) RDW Coefficient of Variation 14.3 % (11.5-14.5) Immature Granulocyte % (Auto) 0.2 % Immature Granulocyte # (Auto) 0.03 K/uL (0.00-0.02) Anion Gap 7.0 mmol/L (3-11) Est Creatinine Clear Calc Drug Dose 113.1 ml/min Estimated GFR () 108.5 Estimated GFR (Non- 93.6 BUN/Creatinine Ratio 17.3 (10-20) Calcium Level 9.0 mg/dl (8.5-10.1) Total Bilirubin 1.1 mg/dl (0.2-1) Direct Bilirubin 0.3 mg/dl (0-0.2) Aspartate Amino Transf (AST/SGOT) 167 U/L (15-37) Alanine Aminotransferase (ALT/SGPT) 74 U/L (12-78) Alkaline Phosphatase 114 U/L (45-117) Total Protein 7.5 gm/dl (6.4-8.2) Albumin 3.5 gm/dl (3.4-5.0) Thyroid Stimulating Hormone (TSH) 1.520 uIu/ml (0.300-4.500) Ethyl Alcohol mg/dL < 3.0 mg/dl (0-3) Urine Color DK YELLOW Urine Appearance CLEAR (CLEAR) Urine pH 6.0 (4.5-7.5) Urine Specific [place] 1.024 (1.000-1.030) Urine Protein 1+ (NEG) Urine Glucose (UA) NEG (NEG) Urine Ketones 1+ (NEG) Urine Occult Blood NEG (NEG) Urine Nitrite NEG (NEG) Urine Bilirubin NEG (NEG) Urine Urobilinogen NEG (NEG) Urine Leukocyte Esterase NEG (NEG) Urine WBC (Auto) 1-5 /hpf (0-5) Urine RBC (Auto) 0-4 /hpf (0-4) Urine Hyaline Casts (Auto) /lpf (0-5) Urine Epithelial Cells (Auto) 20-30 /lpf (0-5) Urine Bacteria (Auto) NEG (NEG) Urine Crystals CALCIUM OXALATE (NONE Urine Pathogenic Casts /lpf (0) Urine Opiates Screen NEG (NEG) Urine Methadone, Qualitative NEG (NEG) Urine Barbiturates NEG (NEG) Urine Phencyclidine (PCP) Level NEG (NEG) Ur Amphetamine/Methamphetamine POS (NEG) MDMA (Ecstasy) Screen POS (NEG) Urine Benzodiazepines Screen NEG (NEG) Urine Cocaine Metabolite NEG (NEG) Urine Marijuana (THC) NEG (NEG) Labs reviewed by ED physician. Medications Administered Medications (Trade) Dose Ordered Sig/Anthony Route Start Time Stop Time Status Last Admin Dose Admin Lorazepam (Ativan Tab) 1 mg NOW STAT SL 06/21/17 15:13 06/21/17 15:15 DC 06/21/17 15:39 1 MG ED Course 0901: Past medical records reviewed. The patient was taken to decontamination. History was obtained from police. 1015: The patient was resting comfortably in room A8. At this time a complete history and physical examination was performed. 1056: I reevaluated the patient. Medical Decision Differential diagnosis: Etiologies such as mood disorder, infection, hypoglycemia, electrolyte abnormalities, cardiac sources, intracerebral event, toxicologic, neurologic, as well as others were entertained. 51-year-old male who presents emergency department covered in feces. I suspect that the patient has been taking amphetamine based on his presentation as well as his urine work. In the emergency department the patient is sedate and has been sleeping. He is complaining of left arm pain therefore he was sent for x- rays. I will place him in a wrist lacer. He does have a slight elevation in his white blood count cell And is afebrile. I do believe that the patient is well enough that he can be safely be admitted for mental health evaluation. Pt was signed out to Dr Luis at change of shift. Pt given Ativan. Medication Reconcilliation Current Medication List: was personally reviewed by me Blood Pressure Screening Patient's blood pressure: Normal blood pressure Impression Primary Impression: Mood disorder Scribe Attestation The scribe's documentation has been prepared under my direction and personally reviewed by me in its entirety. I confirm that the note above accurately reflects all work, treatment, procedures, and medical decision making performed by me. Departure Information Dispostion Mental Health Acute Care Referrals No Doctor, Assigned (PCP) Patient Instructions [facility]
[2017-06-21 11:28] LABS: URINE APPEARANCE CLEAR (CLEAR); URINE COLOR DK YELLOW; URINE EPITHELIAL CELL AUTO 20-30 /lpf (0-5); URINE NITRITE NEG (NEG); URINE SPECIFIC GRAVITY 1.024 (1.000-1.030); UROBILINOGEN NEG (NEG)
[2017-06-21 11:46] LABS: BENZODIAZEPINE, URINE NEG (NEG); COCAINE,URINE NEG (NEG); PHENCYCLIDINE, URINE NEG (NEG)
[2017-06-21 11:49] LABS: MANUAL MICROSCOPIC REQUIRED? NO; REVIEW REQ? YES; URINE BILIRUBIN NEG (NEG)
--- NOTE | 2017-06-21 14:23 | DIAGNOSTIC IMAGING REPORT ---
L WRIST MIN 3 VIEWS ROUTINE CLINICAL HISTORY: Left wrist pain. COMPARISON: Left forearm radiographs performed earlier today. FINDINGS: The left carpal bones are intact. No fracture is identified. The possible distal left ulnar fracture shown on left forearm radiographs performed earlier today was likely artifactual. IMPRESSION: No acute fracture or dislocation of the left wrist. The possible distal left ulnar fracture shown on prior forearm radiographs was likely artifactual. Electronically signed by: Dwight Hercules M.D. 06/21/2017 2:21 PM Dictated Date/Time: 06/21/2017 2:14 PM
--- NOTE | 2017-06-21 19:22 | EMERGENCY ROOM VISIT NOTE ---
ED Visit Note Patient was signed out to me by Dr. Simpson medically cleared. Patient was accepted to [facility] and will be transported on 302.
[2017-06-21 21:29] VITALS: BP 132/85; PULSE 85; O2SAT 98
== END 2017-06-21 21:30 ==
LOC: EDSEX 08:57 → EDBD 08:57 → C.EDA 08:58
DX: F39 Unspecified mood [affective] disorder (principal); M79.622 Pain in left upper arm; I10 Essential (primary) hypertension; E78.5 Hyperlipidemia, unspecified; B20 Human immunodeficiency virus [HIV] disease; G25.81 Restless legs syndrome; Z98.84 Bariatric surgery status; Z79.899 Other long term (current) drug therapy; Z80.9 Family history of malignant neoplasm, unspecified; Z83.3 Family history of diabetes mellitus; Z82.49 Family history of ischemic heart disease and other diseases of the circulatory system; Z82.0 Family history of epilepsy and other diseases of the nervous system; Z91.09 Other allergy status, other than to drugs and biological substances

== ENCOUNTER → 2018-05-06 | Outpatient (CLI) | payer OTHER ==
[~2018-05-06] MED LIST changes: -AMLO-110 PO; +AMLO5TAB3 PO; +PANT40TA2 PO; -PRT/40 PO
[2018-05-06 10:39] LABS: BASO % 0.2 %; BASO ABS # 0.01 K/uL (0-0.2); EOS % 1.3 %; EOS ABS # 0.07 K/uL (0-0.5); HEMATOCRIT 42.4 % (42-52); IG# 0.01 K/uL (0.00-0.02); LYMPH % 32.5 %; LYMPH ABS # 1.79 K/uL (1.2-3.4); MEAN CELL VOLUME 86.9 fL (80-100); MEAN CORPUSCULAR HEMOGLOBIN 30.7 pg (25-34); MEAN CORPUSCULAR HGB CONC 35.4 g/dl (32-36); MEAN PLATELET VOLUME 10.5 fL (7.4-10.4); MONO % 7.3 %; NEUT % 58.5 %; NEUT ABS # 3.23 K/uL (1.4-6.5); PLATELET COUNT 160 K/uL (130-400); RED CELL DISTRIBUTION WIDTH CV 12.4 % (11.5-14.5); RED CELL DISTRIBUTION WIDTH SD 39.5 fL (36.4-46.3); WHITE BLOOD COUNT 5.51 K/uL (4.8-10.8)
[2018-05-06 11:08] LABS: ALBUMIN 3.6 gm/dl (3.4-5.0); ALKALINE PHOSPHATASE 104 U/L (45-117); ALT/SGPT 36 U/L (12-78); AST/SGOT 20 U/L (15-37); BLOOD UREA NITROGEN 9 mg/dl (7-18); CARBON DIOXIDE 29 mmol/L (21-32); CREATININE 0.79 mg/dl (0.60-1.40); GLUCOSE 72 mg/dl (70-99); SODIUM 144 mmol/L (136-145); TOTAL PROTEIN 6.9 gm/dl (6.4-8.2)
== END | disposition home or self-care (01) ==
LOC: C.LAB1850 09:59
PROVIDERS: ATTEND Internal Medicine Infectious Disease
DX: B20 Human immunodeficiency virus [HIV] disease (principal)

== ENCOUNTER 2023-02-17 02:30 | Inpatient (IN) ==
[2023-02-17] MEDS ORDERED: oxyCODONE/ACETAMINOPHEN 10-325 TAB PO STA (02:44)
--- NOTE | 2023-02-17 02:51 | Emergency Department Note ---
History of Present Illness General Chief complaint: Leg Injury/Pain Stated complaint: LEG PAIN Time Seen by Provider: 02/17/23 02:37 History of Present Illness Maximum Pain Intensity: 9 57-year-old male presents emergency department with an onset of left leg pain after he states he was getting out of a chair he slipped and twisted his leg and complains of knee and ramos pain. Patient is on 81 mg of aspirin has a history of HIV with a nondetectable viral load, denies any prior trauma to his leg or left knee. Patient states some pain with ambulation. Patient states that the size of his anterior ramos and the swelling has increased over the past 2 hours. Patient denies any numbness in his left lower extremity. Patient's rating the pain is moderate. There are no other mitigating or alleviating factors Home Medications Medication Instructions Recorded Confirmed Type celecoxib 100 mg capsule 100 mg PO QAM 05/02/19 02/07/23 History lithium carbonate 300 mg capsule See Rx Instructions .Route .COMPLEX 05/02/19 02/07/23 History acetaminophen 500 mg tablet 500 mg PO Q6H PRN Pain 10/25/19 02/07/23 History (Acetaminophen Extra Strength) bictegravir 50 mg-emtricitabine 1 tab PO QAM #30 tabs 01/12/20 02/07/23 Rx 200 mg-tenofovir alafenam 25 mg tablet (Biktarvy) hydrocortisone 2.5 % topical cream 1 applic topical DAILY PRN SKIN 11/15/21 02/07/23 History IRRITATION NEEDED hydroxyzine HCl 25 mg tablet 25 mg PO DIRECTED PRN NEEDED 01/06/22 02/07/23 History sertraline 25 mg tablet (Zoloft) 200 mg PO DAILY 05/03/22 02/07/23 History deutetrabenazine 12 mg tablet 12 mg PO BID 05/18/22 02/07/23 History (Austedo) ketoconazole 2 % shampoo 1 applic topical .COMPLEX #120 mL 05/18/22 02/07/23 Rx hydrochlorothiazide 25 mg tablet 25 mg PO QAM PRN Fluid Retention 05/30/22 02/07/23 Rx #90 tabs pregabalin 300 mg capsule 300 mg PO BID 30 days #60 caps 10/23/22 02/07/23 Rx cyanocobalamin (vitamin B-12) 1,000 mcg sublingual QAM #90 tabs 11/02/22 3 Rx 1,000 mcg sublingual tablet methocarbamol 750 mg tablet 750 mg PO TID PRN MUSCLE SPASMS 12/24/22 02/07/23 History ropinirole 3 mg tablet 3 mg PO QPM #30 tabs 12/29/22 02/07/23 Rx sumatriptan succinate 100 mg 100 mg PO .COMPLEX PRN migraine 12/29/22 02/07/23 Rx tablet (Imitrex) headache 30 days #9 tabs cholecalciferol (vitamin D3) 125 125 mcg PO DAILY #90 caps 01/08/23 02/07/23 Rx mcg (5,000 unit) capsule diphenoxylate-atropine 2.5 1 tab PO TID PRN diarrhea #90 tabs 01/12/23 02/07/23 Rx mg-0.025 mg tablet (Lomotil) tamsulosin 0.4 mg capsule 0.4 mg PO DAILY #90 caps 01/23/23 02/07/23 Rx ketoconazole 2 % topical cream 1 applic topical DAILY #30 grams 01/30/23 02/07/23 Rx cariprazine 1.5 mg capsule 1.5 mg PO DAILY #30 caps 01/31/23 02/07/23 Rx (Vraylar) propranolol 20 mg tablet 20 mg PO BID #60 tabs 02/07/23 02/07/23 Rx benztropine 0.5 mg tablet 0.5 mg PO BID #60 tabs 02/14/23 Rx iron,carbonyl 65 mg-vitamin C 125 1 tab PO DAILY RLS #60 tabs 02/15/23 Rx mg tablet,delayed release (Vitron-C) Allergies Allergy/AdvReac Type Severity Reaction Status Date / Time mercury (elemental) Allergy Intermediate Facial Verified 02/07/23 13:04 swelling, Nausea/Vomiting strawberry Allergy Intermediate rash Verified 02/07/23 13:04 shrimp AdvReac Intermediate ALL Verified 02/07/23 13:04 SEAFOOD D/T MERCURY RELATED. doxepin AdvReac Unknown CAN'T Verified 02/07/23 13:04 REMEMBER TOO LONG AGO Past Med/Surg History Medical History Bipolar 1 disorder Bipolar disorder Cervical pain Epididymitis Esophageal reflux Family history of melanoma Generalized anxiety disorder Human immunodeficiency virus (HIV) disease Dx around 2001 - 2002 Inguinal lymphadenitis Kidney stones Leg swelling Lumbar pain Nodule of groin Obesity Peripheral neuropathy Restless leg syndrome Spondylosis of cervical region without myelopathy or radiculopathy Thoracic back pain Vitamin B12 deficiency Vitamin D deficiency disease Surgical History S/P cholecystectomy S/P gastric surgery Status post gastric bypass for obesity Family History Mother Diabetes Systemic lupus erythematosus Father Melanoma Myocardial infarction Prostate cancer Other Ulcerative colitis Denies family history of Ovarian cancer Crohn's disease Breast cancer Colorectal cancer Irritable bowel syndrome Social History Smoking Status: Never smoker Do You Dip or Chew Tobacco: No; Hx Alcohol Use: Yes Hx Substance Use: No Preferred Language: Romansh Visual Impairment: No Limitations Hearing Ability: Normal marital status: Current Living Situation: Other current occupational status: disabled Feels Safe at Home: Yes Dental Care, Regularly: Yes Physical Activity Frequency: Daily Seatbelt Use: always Sunscreen Use: No Review of Systems A total of 10 systems reviewed and were otherwise negative Musculoskeletal: + deformity and + swelling Integumentary: + skin swelling Physical Exam Vital Signs Vital Signs - 24 hr 02/17/23 02:32 02/17/23 03:52 02/17/23 03:44 Temperature 36.8 C Temperature Source Temporal Artery Scan Pulse Rate 64 52 L 53 L Pulse Rate from SpO2 Sensor 53 L Pulse Rhythm Regular Pulse Strength Normal Respiratory Rate 20 16 19 Respiratory Effort / Characteristics Non-Labored Spontaneous Respiratory Depth Normal Respiratory Pattern Regular Blood Pressure 150/90 H 151/87 H Blood Pressure Mean 110 108 Blood Pressure Position Sitting Pulse Oximetry 97 94 93 Oxygen Delivery Method Room Air Room Air Sepsis Recent Fever Within 48 Hours No Sepsis New/Unexplained Change in Mental Status N/A Sepsis Action Taken by Nursing No Action Required 02/17/23 04:00 02/17/23 04:40 Temperature Temperature Source Pulse Rate 52 L 53 L Pulse Rate from SpO2 Sensor 52 L Pulse Rhythm Pulse Strength Respiratory Rate 14 Respiratory Effort / Characteristics Respiratory Depth Respiratory Pattern Blood Pressure 149/96 H Blood Pressure Mean 113 Blood Pressure Position Pulse Oximetry 94 Oxygen Delivery Method Sepsis Recent Fever Within 48 Hours Sepsis New/Unexplained Change in Mental Status Sepsis Action Taken by Nursing GENERAL: Patient is awake alert in no acute distress patient is resting comfortably and showing no signs of anxiety EYES: The conjunctivae are clear. The pupils are round and reactive. EARS, NOSE, MOUTH AND THROAT: The nose is without any evidence of any deformity. Mucous membranes are moist. Tongue is midline. NECK: The neck is nontender and supple. RESPIRATORY: Normal respiratory effort is noted there is no evidence of wheezing rhonchi or rales CARDIOVASCULAR: Regular rate and rhythm noted there no murmurs rubs or gallops normal S1 normal S2. GASTROINTESTINAL: The abdomen is soft. Abdomen is nontender. PELVIS: The Pelvis is stable. No tenderness to palpation is noted. BACK: Full range of motion MUSCULOSKELETAL/EXTREMITIES: There is no evidence of gross deformity full range of motion is noted in the hips and shoulders. Patient's left lower extremity exam reveals mild to the anterior patellar region there is significant swelling to the proximal ramos region with tenderness present over the tibia and the posterior calf there is tenderness in the posterior fossa of the left knee there is significant bruising to the medial aspect of the proximal anterior ramos patient is neurovascularly intact distally there is no tenderness on the bilateral malleoli calcaneus or midfoot. SKIN: There is no obvious evidence of any rash. There are no petechiae, pallor or cyanosis noted. NEUROLOGIC: Patient is awake alert and oriented x3 strength is symmetric Course Reevaluation(s) Reevaluation #1: Patient on reexamination has an increased size in the medial aspect of the hematoma. Time: 03:40 Reevaluation #2: On reexamination the patient's proximal left lower extremity has increased in size medially. The compartments still are soft but tender the patient is neurovascularly intact distally patient is a bounding DP pulse patient is able to wiggle his toes he has no paresthesias. The left lower extremity is elevated in a compression Fadi wrap ice is being applied to the area Time: 04:02 Consultations Consultation #1: Dr Barker from [facility] regarding this patient's presentation and current treatment plan as well as CAT scan and x-ray results Time: 03:59 Consultation #2: Case was discussed with the [facility] hospitalist for admission Time: 03:59 Administered Medications Discontinued Medications Ioversol (Optiray 320 500ml) 107 ml IV ONCE ONE Stop: 02/17/23 03:27 Last Admin: 02/17/23 03:32 Dose: 107 ml Documented By: PER Oxycodone/Acetaminophen (Oxycodone/Acetaminophen 10-325 Tab) 1 tab PO NOW STA Stop: 02/17/23 02:45 Last Admin: 02/17/23 02:49 Dose: 1 tab Documented By: AMILCAR Medical Decision Making Medical Records Attestation: I reviewed the patient's medical records. Home Medications Current Medication List: was personally reviewed by me Additional Comments: States he takes 81 mg of aspirin Laboratory Data Attestation: I reviewed the patient's lab results. Lab work interpreted by me unremarkable 02/17/23 Unknown 02/17/23 Unknown Lab Results 02/17/23 02/17/23 02/17/23 Range/Units 03:10 03:11 03:42 WBC (4.8-10.8) K/ul RBC (4.70-6.10) M/uL Hgb (14.0-18.0) g/dl POC Hgb 13.3 L (14.0-18.0) g/dl Hct (42.0-52.0) % POC Hct 39 L (42-52) % MCV (80.0-100.0) fL MCH (25.0-34.0) pg MCHC (32.0-36.0) g/dL RDW Std Deviation (36.4-46.3) fL RDW Coeff of Bereket (11.5-14.5) % Plt Count (130-400) K/uL MPV (9.4-12.4) fL Immature Gran % (Auto) % Neut % (Auto) % Lymph % (Auto) % Sandoval % (Auto) % Eos % (Auto) % Baso % (Auto) % Neut # (Auto) (1.40-6.50) K/uL Lymph # (Auto) (1.2-3.4) K/uL Sandoval # (Auto) (0.11-0.59) K/uL Eos # (Auto) (0-0.50) K/uL Baso # (Auto) (0-0.2) K/uL Immature Gran # (Auto) (0.01-0.20) K/uL PT (9.0-12.0) Seconds INR (0.9-1.1) POC Sodium 142 (135-144) mmol/L Sodium (136-145) mmol/L POC Potassium 4.0 (3.3-5.0) mmol/L Potassium (3.5-5.1) mmol/L POC Chloride 107 (101-112) mmol/L Chloride (98-107) mmol/L Carbon Dioxide (21-32) mmol/L POC Total CO2 25 (24-31) mmol/L Anion Gap (3-11) POC Anion Gap 16.0 (16-25) mmol/L POC BUN 14 (7-18) mg/dl BUN (6-23) mg/dl Creatinine (0.6-1.4) mg/dl POC Creatinine 0.8 (0.6-1.3) mg/dl Est Cr Clr Drug Dosing ml/min Est GFR ( Amer) ml/min Est GFR (Non-Af Amer) ml/min BUN/Creatinine Ratio (10-20) Glucose (70-99(Fasting)) mg/dl POC Glucose (other) 100 H (70-99) mg/dl Calcium (8.6-10.3) mg/dl POC Ioniz Calcium Walter 1.22 (1.12-1.32) mmol/l Total Bilirubin (0.2-1.0) mg/dl AST (13-39) U/L ALT (7-52) U/L Alkaline Phosphatase (34-104) U/L Total Creatine Kinase (30-223) U/L Total Protein (6.0-8.3) gm/dl Albumin (3.4-5.0) gm/dl Globulin (2.5-4.0) gm/dl Albumin/Globulin Ratio (0.9-2) SARS-CoV-2, RNA, NAAT NEGATIVE (NEGATIVE) Blood Type B Negative Antibody Screen NEGATIVE 02/17/23 02/17/23 02/17/23 Range/Units Unknown Unknown Unknown WBC 5.13 (4.8-10.8) K/ul RBC 4.37 L (4.70-6.10) M/uL Hgb 13.0 L (14.0-18.0) g/dl POC Hgb (14.0-18.0) g/dl Hct 39.0 L (42.0-52.0) % POC Hct (42-52) % MCV 89.2 (80.0-100.0) fL MCH 29.7 (25.0-34.0) pg MCHC 33.3 (32.0-36.0) g/dL RDW Std Deviation 46.6 H (36.4-46.3) fL RDW Coeff of Bereket 14.5 (11.5-14.5) % Plt Count 143 (130-400) K/uL MPV 11.4 (9.4-12.4) fL Immature Gran % (Auto) 0.2 % Neut % (Auto) 52.8 % Lymph % (Auto) 35.5 % Sandoval % (Auto) 8.0 % Eos % (Auto) 2.9 % Baso % (Auto) 0.6 % Neut # (Auto) 2.71 (1.40-6.50) K/uL Lymph # (Auto) 1.82 (1.2-3.4) K/uL Sandoval # (Auto) 0.41 (0.11-0.59) K/uL Eos # (Auto) 0.15 (0-0.50) K/uL Baso # (Auto) 0.03 (0-0.2) K/uL Immature Gran # (Auto) 0.01 (0.01-0.20) K/uL PT 11.3 (9.0-12.0) Seconds INR 1.0 (0.9-1.1) POC Sodium (135-144) mmol/L Sodium 141 (136-145) mmol/L POC Potassium (3.3-5.0) mmol/L Potassium 4.1 (3.5-5.1) mmol/L POC Chloride (101-112) mmol/L Chloride 110 H (98-107) mmol/L Carbon Dioxide 27 (21-32) mmol/L POC Total CO2 (24-31) mmol/L Anion Gap 4 (3-11) POC Anion Gap (16-25) mmol/L POC BUN (7-18) mg/dl BUN 14 (6-23) mg/dl Creatinine 0.78 (0.6-1.4) mg/dl POC Creatinine (0.6-1.3) mg/dl Est Cr Clr Drug Dosing 130.9 ml/min Est GFR ( Amer) 117.8 ml/min Est GFR (Non-Af Amer) 101.6 ml/min BUN/Creatinine Ratio 17.9 (10-20) Glucose 98 (70-99(Fasting)) mg/dl POC Glucose (other) (70-99) mg/dl Calcium 8.9 (8.6-10.3) mg/dl POC Ioniz Calcium Walter (1.12-1.32) mmol/l Total Bilirubin 0.4 (0.2-1.0) mg/dl AST 19 (13-39) U/L ALT 13 (7-52) U/L Alkaline Phosphatase 98 (34-104) U/L Total Creatine Kinase 73 (30-223) U/L Total Protein 6.8 (6.0-8.3) gm/dl Albumin 4.0 (3.4-5.0) gm/dl Globulin 2.8 (2.5-4.0) gm/dl Albumin/Globulin Ratio 1.4 (0.9-2) SARS-CoV-2, RNA, NAAT (NEGATIVE) Blood Type Antibody Screen Imaging Data Attestation: I personally reviewed and interpreted this imaging study as follows: My Impression: Left knee and tib-fib x-rays interpreted by me there is a large area of soft tissue swelling medially there is a lucency through the proximal tibia; chest x- ray was also completed and shows a questionable density in the right hilar region CT angio by my interpretation shows a large area of soft tissue swelling as well as hematoma and extravasation of blood Radiologist's Impression: Lower Extremity CTA 02/17/23 03:01 Exam(s): CTA EXTREMITY LEFT LOWER W/WO Contrast IV Amt: 107 ML EXAM: CT Angiography of the Left Lower Extremity With Intravenous Contrast CLINICAL HISTORY: Reason for exam: knee trauma, bleeding in ramos. TECHNIQUE: Axial computed tomographic angiography images of the left lower extremity with intravenous contrast. CTDI is 22.89 mGy and DLP is 353. 19 mGy-cm. Automated exposure control was utilized for the study. A dose lowering technique was utilized adhering to the principles of ALARA. MIP reconstructed images were created and reviewed. CONTRAST: Patient received 107 ML of IV contrast COMPARISON: No relevant prior studies available. FINDINGS: VASCULATURE: Left femoral/popliteal arteries: No acute findings. No occlusion or significant stenosis. Left calf/foot arteries: Patent 2 vessel runoff into the foot via the anterior and posterior tibial arteries. Tibial arteries widely patent. 5.2 x 8.2 x 18 cm medial calf hematoma with bleeding appearing to arise from a single nonbleeding vascular structure likely representing a vein. LOWER EXTREMITY: Bones/joints: No acute fracture. No dislocation. Soft tissues: Unremarkable. No abnormal contrast enhancement. IMPRESSION: 1. Widely patent 2 vessel runoff in the foot 2. Large left medial calf hematoma centered on an actively extravasating vein in the subcutaneous soft tissues. No arterial hemorrhage is identified on this study. Electronically signed by: Felix Conroy MD 02/17/23 03:44 AM MDM Narrative Medical decision making differential diagnosis includes sprain strain internal derangement of knee, hematoma, tibial plateau fracture, proximal tibia fracture Plan is to check x-rays, patient appears to have an expanding hematoma in the left ramos, patient will receive a CT angio of the left lower extremity has no paresthesias no pulselessness and no inability to move his foot. Currently at 3:25 AM he has a significant area of swelling to the anterior ramos medially however I do not suspect a compartment syndrome at this time Reviewed the patient's prior medical records and orthopedic note from Dr Peres from [facility] and had arthrocentesis of the left knee in 2019 Case was discussed with orthopedics, case was discussed with the hospitalist, the patient will be admitted currently at 4 AM I do not suspect the patient have a compartment syndrome Impression & Plan Traumatic hematoma of left lower leg, Left knee sprain Discharge Plan Visit Data Chief Complaint: Leg Injury/Pain Stated Complaint: LEG PAIN ED Provider: Devante Rodriguez Discharge Problem: Traumatic hematoma of left lower leg, Left knee sprain Patient Disposition: Admitted As Inpatient Forms Stand Alone Forms: My [facility] Prescriptions Prescriptions: No Action ketoconazole 2 % shampoo 1 applic TOP .COMPLEX Qty: 120 5RF Rx Instructions: 1 applic TOP Wash scalp twice weekly as directed. Let sit 3-5 minutes prior to rinsing.; hydrochlorothiazide 25 mg tablet 25 mg PO QAM PRN (Reason: Fluid Retention) Qty: 90 1RF pregabalin 300 mg capsule 300 mg PO BID 30 Days Qty: 60 5RF Hold Instructions: not takes cyanocobalamin (vitamin B-12) 1,000 mcg tablet, sublingual 1,000 mcg sublingual QAM Qty: 90 1RF ropinirole 3 mg tablet 3 mg PO QPM Qty: 30 1RF sumatriptan succinate [Imitrex] 100 mg tablet 100 mg PO .COMPLEX PRN (Reason: migraine headache) 30 Days Qty: 9 1RF Rx Instructions: take one at onset of headache, may repeat in 2 hours prn, limit 2-3 days / week PRN cholecalciferol (vitamin D3) 125 mcg (5,000 unit) capsule 125 mcg PO DAILY Qty: 90 3RF diphenoxylate-atropine [Lomotil] 2.5-0.025 mg tablet 1 tab PO TID PRN (Reason: diarrhea) Qty: 90 1RF ketoconazole 2 % cream 1 applic topical DAILY Qty: 30 2RF Rx Instructions: Apply to areas of the face once daily as directed. benztropine 0.5 mg tablet 0.5 mg PO BID Qty: 60 2RF Vitron-C 65 mg iron- 125 mg tablet,delayed release (DR/EC) 1 tab PO DAILY Qty: 60 6RF hydrocortisone 2.5 % cream 1 applic TOP DAILY PRN (Reason: SKIN IRRITATION NEEDED) Rx Instructions: Apply to areas of the face daily for up to 7 days as needed for flaring. Biktarvy 50-200-25 mg tablet 1 tab PO QAM Qty: 30 2RF hydroxyzine HCl 25 mg tablet 25 mg PO DIRECTED PRN (Reason: NEEDED) Vraylar 1.5 mg capsule 1.5 mg PO DAILY Qty: 30 2RF sertraline [Zoloft] 25 mg tablet 200 mg PO DAILY propranolol 20 mg tablet 20 mg PO BID Qty: 60 3RF Austedo 12 mg tablet 12 mg PO BID tamsulosin 0.4 mg capsule 0.4 mg PO DAILY Qty: 90 3RF celecoxib 100 mg capsule 100 mg PO QAM lithium carbonate 300 mg capsule See Rx Instructions .ROUTE .COMPLEX Rx Instructions: TAKES 300 MG QAM, THEN 600 MG QPM. acetaminophen [Acetaminophen Extra Strength] 500 mg Tablet 500 mg PO Q6H PRN (Reason: Pain) methocarbamol 750 mg tablet 750 mg PO TID PRN (Reason: MUSCLE SPASMS) Referrals Referrals: Felicity Colon MD [Primary Care Provider] -
[2023-02-17 03:23] LABS: iSTAT Creatinine 0.8 mg/dl (0.6-1.3); iSTAT Hemoglobin 13.3 g/dl (14.0-18.0); iSTAT Ionized Calcium 1.22 mmol/l (1.12-1.32)
[2023-02-17] MEDS ORDERED: OPTIRAY 320 500ml IV ONE (03:26)
[2023-02-17 03:27] LABS: Basophils # (auto) 0.03 K/uL (0-0.2); Basophils % (auto) 0.6 %; Eosinophils # (auto) 0.15 K/uL (0-0.50); Eosinophils % (auto) 2.9 %; Immature Granulocytes # (auto) 0.01 K/uL (0.01-0.20); Immature Granulocytes % (auto) 0.2 %; Lymphocytes # (auto) 1.82 K/uL (1.2-3.4); Lymphocytes % (auto) 35.5 %; Mean Corpuscular Hemoglobin 29.7 pg (25.0-34.0); Mean Corpuscular Hgb Conc 33.3 g/dL (32.0-36.0); Mean Corpuscular Volume 89.2 fL (80.0-100.0); Mean Platelet Volume 11.4 fL (9.4-12.4); Monocytes # (auto) 0.41 K/uL (0.11-0.59); Neutrophils # (auto) 2.71 K/uL (1.40-6.50); Neutrophils % (auto) 52.8 %; Platelet Count 143 K/uL (130-400); RDW Coefficient of Variation 14.5 % (11.5-14.5); RDW Standard Deviation 46.6 fL (36.4-46.3); Red Blood Count 4.37 M/uL (4.70-6.10); White Blood Count 5.13 K/ul (4.8-10.8)
[2023-02-17 03:41] LABS: Albumin Globulin Ratio 1.4 (0.9-2); BUN Creatinine Ratio 17.9 (10-20); Bilirubin,Total 0.4 mg/dl (0.2-1.0); Calcium 8.9 mg/dl (8.6-10.3); Creatinine Clr Calc Pharmacy 130.9 ml/min; Est GFR (African American) 117.8 ml/min; Est GFR (Non-African American) 101.6 ml/min; Globulin 2.8 gm/dl (2.5-4.0); Potassium 4.1 mmol/L (3.5-5.1); Total Protein 6.8 gm/dl (6.0-8.3)
--- NOTE | 2023-02-17 03:45 | CT Scan Report ---
Exam(s): CTA EXTREMITY LEFT LOWER W/WO Contrast IV Amt: 107 ML EXAM: CT Angiography of the Left Lower Extremity With Intravenous Contrast CLINICAL HISTORY: Reason for exam: knee trauma, bleeding in ramos. TECHNIQUE: Axial computed tomographic angiography images of the left lower extremity with intravenous contrast. CTDI is 22.89 mGy and DLP is 353. 19 mGy-cm. Automated exposure control was utilized for the study. A dose lowering technique was utilized adhering to the principles of ALARA. MIP reconstructed images were created and reviewed. CONTRAST: Patient received 107 ML of IV contrast COMPARISON: No relevant prior studies available. FINDINGS: VASCULATURE: Left femoral/popliteal arteries: No acute findings. No occlusion or significant stenosis. Left calf/foot arteries: Patent 2 vessel runoff into the foot via the anterior and posterior tibial arteries. Tibial arteries widely patent. 5.2 x 8.2 x 18 cm medial calf hematoma with bleeding appearing to arise from a single nonbleeding vascular structure likely representing a vein. LOWER EXTREMITY: Bones/joints: No acute fracture. No dislocation. Soft tissues: Unremarkable. No abnormal contrast enhancement. IMPRESSION: 1. Widely patent 2 vessel runoff in the foot 2. Large left medial calf hematoma centered on an actively extravasating vein in the subcutaneous soft tissues. No arterial hemorrhage is identified on this study. Electronically signed by: Felix Conroy MD 02/17/23 03:44 AM
[2023-02-17 04:07] LABS: Prothrombin Time 11.3 Seconds (9.0-12.0)
--- NOTE | 2023-02-17 04:40 | History & Physical Report ---
Date of Service February 17, 2023 Assessment & Plan (1) Pain and swelling of left lower extremity: Plan: 57 y/o M w/ PmHx HIV, JERICHO, sleep apnea, HTN, bipolar 1 disorder, GERD, peripheral neuropathy admitted for actively extravasating LLE hematoma. Pain and swelling of LLE: -Identifiable trauma w/ falling back and twisting leg. -Hgb 13 (last Hgb 13.6 in December). No other blood work abnormalities. -XR Knee and Fib/tib w/ soft tissue swelling at medial compartment. -CTA LLE w/ large L medial calf hematoma centered on actively extravasating vein in subcutaneous soft tissues w/o arterial hemorrhage identified. -Takes daily aspirin with last dose a little over 24 hours ago. -Given that at time of admission hematoma growing, gave 0.3mcg/kg DDAVP for aspirin reversal. -Elevate leg, CLAIR bandage wraps for compression, ice applied to area. -No evidence of compartment syndrome at current time, patient neurovascularly intact. -Orthopedics consulted, will appreciate recs. -Pain control with Tylenol, [place] PRN. -Admit to med/tele. HIV: -Continue Biktarvy. Dyskinesia of mouth: -Continue benztropine. Will hold deutetrabenazine for possible bruising side effect. Bipolar disorder/Anxiety/depression: -Continue Vraylar, lithium, sertraline. Peripheral neuropathy: -Continue home Lyrica. Essential tremor: -Continue home propranolol. Restless leg syndrome: -Continue home iron supplement and ropinerole. RICHARD: -Continue CPAP qHS HTN: -Continue to monitor. s/p gastric bypass/Vit b12 deficiency/vit D deficiency: -Continue home vitamin supplements. F/E/N/GI: Regular diet. DVT Prophylaxis: holding chemoprophylaxis with active bleed. Code status: DNR/DNI Dispo: Med/tele (2) Bipolar 1 disorder: (3) Dyskinesia of mouth: (4) Esophageal reflux: (5) Essential tremor: (6) Generalized anxiety disorder: (7) Human immunodeficiency virus (HIV) disease: (8) Hypertension: (9) Obstructive sleep apnea: (10) Peripheral neuropathy: (11) Restless leg syndrome: (12) Status post gastric bypass for obesity: (13) Vitamin B12 deficiency: (14) Vitamin D deficiency disease: History of Present Illness Chief Complaint: L leg swelling pain. Primary Care Provider: Felicity Colon MD Vijay is a 57 year old male w/ PmHx HIV, JERICHO, sleep apnea, HTN, bipolar 1 disorder, GERD, peripheral neuropathy coming into the ED for L leg swelling and pain. Patient states earlier around midnight he was going to sit down on his computer chair when he stepped backwards and twisted his left leg. The twisting was painful for him and he had swelling at the LLE that worsened as time went on. He came into the ED for the swelling that kept growing and large amount of pain. He denies any loss of sensation at the LLE. He is not on any blood thinners, only on low dose aspirin daily, last aspirin a little over 24 hours ago. He denies any other symptoms of lightheadedness, dizziness, fevers, chills, shortness of breath, chest pain, nausea, vomiting, diarrhea, dysuria. In the ED Hgb 13, CMP unremarkable. CXR w/ poor inspiratory effort, unremarkable otherwise. XR Knee and fib/tib w/ medial soft tissue swelling. CTA lower extremity w/ widely patent 2 vessel runoff in foot, large left medial calf hematoma centered on an actively extravasating vein in subcutaneous soft tissues - no arterial hemorrhage is identified on study. Allergies Allergy/AdvReac Type Severity Reaction Status Date / Time mercury (elemental) Allergy Intermediate Facial Verified 02/07/23 13:04 swelling, Nausea/Vomiting strawberry Allergy Intermediate rash Verified 02/07/23 13:04 shrimp AdvReac Intermediate ALL Verified 02/07/23 13:04 SEAFOOD D/T MERCURY RELATED. doxepin AdvReac Unknown CAN'T Verified 02/07/23 13:04 REMEMBER TOO LONG AGO Home Medications Medication Instructions Recorded Confirmed Type celecoxib 100 mg capsule 100 mg PO QAM 05/02/19 02/07/23 History lithium carbonate 300 mg capsule See Rx Instructions .Route .COMPLEX 05/02/19 02/07/23 History acetaminophen 500 mg tablet 500 mg PO Q6H PRN Pain 10/25/19 02/07/23 History (Acetaminophen Extra Strength) bictegravir 50 mg-emtricitabine 1 tab PO QAM #30 tabs 01/12/20 02/07/23 Rx 200 mg-tenofovir alafenam 25 mg tablet (Biktarvy) hydrocortisone 2.5 % topical cream 1 applic topical DAILY PRN SKIN 11/15/21 02/07/23 History IRRITATION NEEDED hydroxyzine HCl 25 mg tablet 25 mg PO DIRECTED PRN NEEDED 01/06/22 02/07/23 History sertraline 25 mg tablet (Zoloft) 200 mg PO DAILY 05/03/22 02/07/23 History deutetrabenazine 12 mg tablet 12 mg PO BID 05/18/22 02/07/23 History (Austedo) ketoconazole 2 % shampoo 1 applic topical .COMPLEX #120 mL 05/18/22 02/07/23 Rx hydrochlorothiazide 25 mg tablet 25 mg PO QAM PRN Fluid Retention 05/30/22 02/07/23 Rx #90 tabs pregabalin 300 mg capsule 300 mg PO BID 30 days #60 caps 10/23/22 02/07/23 Rx cyanocobalamin (vitamin B-12) 1,000 mcg sublingual QAM #90 tabs 11/02/22 02/07/23 Rx 1,000 mcg sublingual tablet methocarbamol 750 mg tablet 750 mg PO TID PRN MUSCLE SPASMS 12/24/22 02/07/23 History ropinirole 3 mg tablet 3 mg PO QPM #30 tabs 12/29/22 02/07/23 Rx sumatriptan succinate 100 mg 100 mg PO .COMPLEX PRN migraine 12/29/22 02/07/23 Rx tablet (Imitrex) headache 30 days #9 tabs cholecalciferol (vitamin D3) 125 125 mcg PO DAILY #90 caps 01/08/23 02/07/23 Rx mcg (5,000 unit) capsule diphenoxylate-atropine 2.5 1 tab PO TID PRN diarrhea #90 tabs 01/12/23 02/07/23 Rx mg-0.025 mg tablet (Lomotil) tamsulosin 0.4 mg capsule 0.4 mg PO DAILY #90 caps 01/23/23 02/07/23 Rx ketoconazole 2 % topical cream 1 applic topical DAILY #30 grams 01/30/23 02/07/23 Rx cariprazine 1.5 mg capsule 1.5 mg PO DAILY #30 caps 01/31/23 02/07/23 Rx (Vraylar) propranolol 20 mg tablet 20 mg PO BID #60 tabs 02/07/23 02/07/23 Rx benztropine 0.5 mg tablet 0.5 mg PO BID #60 tabs 02/14/23 Rx iron,carbonyl 65 mg-vitamin C 125 1 tab PO DAILY RLS #60 tabs 02/15/23 Rx mg tablet,delayed release (Vitron-C) Past Med/Surg History Medical History Bipolar 1 disorder Bipolar disorder Cervical pain Epididymitis Esophageal reflux Family history of melanoma Generalized anxiety disorder Human immunodeficiency virus (HIV) disease Dx around 2001 - 2002 Inguinal lymphadenitis Kidney stones Leg swelling Lumbar pain Nodule of groin Obesity Peripheral neuropathy Restless leg syndrome Spondylosis of cervical region without myelopathy or radiculopathy Thoracic back pain Vitamin B12 deficiency Vitamin D deficiency disease Surgical History S/P cholecystectomy S/P gastric surgery Status post gastric bypass for obesity Family History Mother Diabetes Systemic lupus erythematosus Father Melanoma Myocardial infarction Prostate cancer Other Ulcerative colitis Denies family history of Ovarian cancer Crohn's disease Breast cancer Colorectal cancer Irritable bowel syndrome Social History Smoking Status: Never smoker Do You Dip or Chew Tobacco: No; Hx Alcohol Use: No Hx Substance Use: No Preferred Language: Tajik Communication Ability: Effective Visual Impairment: No Limitations Hearing Ability: Normal Water Pump Installer Required: No Beliefs That Will Affect Care: None marital status: Current Living Situation: Spouse and Family current occupational status: disabled Other Information That Helps Us Care for You: Yes (would like to see outpatient case manager) Feels Safe at Home: Yes Safety Concerns: Feels Safe At This Time Dental Care, Regularly: Yes Physical Activity Frequency: Daily Seatbelt Use: always Sunscreen Use: No Assistive Devices: None Review of Systems Review of Systems: As per HPI. Physical Exam Constitutional: WD/WN, vitals as above Eyes: PERRL, conjunctivae normal, anicteric sclerae Respiratory: normal respiratory effort, lungs clear to auscultation Cardiovascular: RRR, no murmur, no edema Pedal pulses 2+ at bilateral lower extremities. Gastrointestinal (Abdomen): normal bowel sounds, soft, nontender, no hepatosplenomegaly Musculoskeletal: Patient able to move bilateral feet with good range of motion in active and passive motion. Swelling at medial anterior ramos wrapped in CLAIR bandage. Skin: LL foot without warm, dry, no abnormalities. Neurologic: Sensation in tact at bilateral lower extremities. Psychiatric: A+Ox3, euthymic affect Results & Data Results & Data Vital Signs (Past 12 Hours) Vital Signs Temp Pulse Resp BP Pulse Ox O2 Del Method 02/17/23 04:00 52 L 14 149/96 H 94 02/17/23 03:44 53 L 19 151/87 H 93 02/17/23 03:52 52 L 16 94 Room Air 02/17/23 02:32 36.8 C 64 20 150/90 H 97 Room Air Supervising Physician Co-Signing Physician Notes Attending addendum: I have physically seen this patient, have supervised the medical residents activities, and agree with the H&P unless as otherwise noted. Assessment and Plan: Left lower extremity hematoma/active venous bleeding- X-rays knee and tib-fib without fracture CTA left lower extremity with large left medial calf hematoma centered on actively extravasating vein in the subcutaneous tissues without arterial hemorrhage identified Hold aspirin Give DDAVP IV Follow serial circumferential examinations Vascular surgery deferred to orthopedic surgery Orthopedic surgery aware and will see patient in a.m. Compressive wrap as recommended per surgery overnight HIV- Continue Biktarvy Dyskinesis- Continue benztropine Holding deutetrabenazine Bipolar disorder/anxiety/depression- Continue Vraylar, lithium and sertraline Essential tremor- Continue propranolol Remaining orders and notations as noted Resident Activity Tracking Resident Involvement: Resident Care Provided Care Provided: Adult Hospital Medicine
[2023-02-17] MEDS ORDERED: HYDROCODONE/ACETAMINOPHEN 7.5/325MG TAB PO STA (05:02)
[2023-02-17] MEDS ORDERED: DESMOPRESSIN ACETATE 36 MCG in SODIUM CHLORIDE 0.9% 50 ML IV ONE (05:30)
--- NOTE | 2023-02-17 07:14 | XRay Report ---
XR chest 1V portable CLINICAL HISTORY: weakness COMPARISON STUDY: Chest radiograph July 23, 2018. FINDINGS: Lung volumes are mildly diminished. There is no pneumothorax or pleural effusion. Cardiomeg stephanie is noted. There is no evidence for pulmonary edema. Right hilar density is likely due to pulmonar y vessels. IMPRESSION: No acute cardiopulmonary findings. ACT 112: Negative or not required by law. Electronically signed by: Dwight Hercules M.D. 02/17/2023 7:12 AM
--- NOTE | 2023-02-17 07:32 | XRay Report ---
XR tibia fibula LT 2V CLINICAL HISTORY: injury COMPARISON: Left knee radiographs November 16, 2021. FINDINGS: No fracture within the left tibia or fibula is identified. Alignment of the left knee is a natomic. There is no left knee joint effusion. Extensive medial left lower leg soft tissue swelling. IMPRESSION: 1. No acute fracture within the left tibia or fibula. 2. Extensive medial left lower leg soft tissue swelling suggestive of a contusion/hematoma. ACT 112: Negative or not required by law. Electronically signed by: Dwight Hercules M.D. 02/17/2023 7:31 AM
--- NOTE | 2023-02-17 07:32 | XRay Report ---
XR knee LT 3V CLINICAL HISTORY: Swelling following injury. COMPARISON: Left knee radiographs November 09, 2021. FINDINGS: Alignment of the left knee is anatomic. There is no acute fracture. There is no joint effu mariluz. There is extensive soft tissue swelling of the medial left lower leg. IMPRESSION: 1. No acute fracture. No left knee joint effusion. 2. Extensive medial left lower leg soft tissue swelling suggestive of a large contusion/hematoma. ACT 112: Negative or not required by law. Electronically signed by: Dwight Hercules M.D. 02/17/2023 7:30 AM
--- NOTE | 2023-02-17 08:07 | Orthopedic Consultation ---
Date of Consultation February 17, 2023 Assessment & Plan (1) Hematoma of left lower leg: He has a large superficial hematoma in his left lower leg. No evidence of compartment syndrome or intracompartmental fluid collection or swelling on CT scan. Especially given his HIV status, would recommend nonoperative management. I would recommend Fadi wrap compression, ice, elevation, and activity modifications as needed. This will likely take several months to completely resorb. Orthopedics will sign off at this point. He can follow-up with his primary care physician for this. He does not require specific orthopedic follow-up. History of Present Illness Reason for Consultation: Left lower leg hematoma Requesting Physician: Dr. Rodriguez History of Present Illness Mr. Bower is a 57-year-old HIV-positive male who injured his left leg yesterday when getting up from a desk chair. His leg got caught underneath the chair as he twisted and fell. He was able to stand up and ambulate on that left leg immediately after the fall. He developed an expanding area of swelling on the anterior medial aspect of the left lower leg. Allergies Allergy/AdvReac Type Severity Reaction Status Date / Time mercury (elemental) Allergy Intermediate Facial Verified 02/07/23 13:04 swelling, Nausea/Vomiting strawberry Allergy Intermediate rash Verified 02/07/23 13:04 shrimp AdvReac Intermediate ALL Verified 02/07/23 13:04 SEAFOOD D/T MERCURY RELATED. doxepin AdvReac Unknown CAN'T Verified 02/07/23 13:04 REMEMBER TOO LONG AGO Home Medications Medication Instructions Recorded Confirmed Type celecoxib 100 mg capsule 100 mg PO QAM 05/02/19 02/07/23 History lithium carbonate 300 mg capsule See Rx Instructions .Route .COMPLEX 05/02/19 02/07/23 History acetaminophen 500 mg tablet 500 mg PO Q6H PRN Pain 10/25/19 02/07/23 History (Acetaminophen Extra Strength) bictegravir 50 mg-emtricitabine 1 tab PO QAM #30 tabs 01/12/20 02/07/23 Rx 200 mg-tenofovir alafenam 25 mg tablet (Biktarvy) hydrocortisone 2.5 % topical cream 1 applic topical DAILY PRN SKIN 11/15/21 02/07/23 History IRRITATION NEEDED hydroxyzine HCl 25 mg tablet 25 mg PO DIRECTED PRN NEEDED 01/06/22 02/07/23 History sertraline 25 mg tablet (Zoloft) 200 mg PO DAILY 05/03/22 02/07/23 History deutetrabenazine 12 mg tablet 12 mg PO BID 05/18/22 02/07/23 History (Austedo) ketoconazole 2 % shampoo 1 applic topical .COMPLEX #120 mL 05/18/22 02/07/23 Rx hydrochlorothiazide 25 mg tablet 25 mg PO QAM PRN Fluid Retention 05/30/22 02/07/23 Rx #90 tabs pregabalin 300 mg capsule 300 mg PO BID 30 days #60 caps 10/23/22 02/07/23 Rx cyanocobalamin (vitamin B-12) 1,000 mcg sublingual QAM #90 tabs 11/02/22 02/07/23 Rx 1,000 mcg sublingual tablet methocarbamol 750 mg tablet 750 mg PO TID PRN MUSCLE SPASMS 12/24/22 02/07/23 History ropinirole 3 mg tablet 3 mg PO QPM #30 tabs 12/29/22 02/07/23 Rx sumatriptan succinate 100 mg 100 mg PO .COMPLEX PRN migraine 12/29/22 02/07/23 Rx tablet (Imitrex) headache 30 days #9 tabs cholecalciferol (vitamin D3) 125 125 mcg PO DAILY #90 caps 01/08/23 02/07/23 Rx mcg (5,000 unit) capsule diphenoxylate-atropine 2.5 1 tab PO TID PRN diarrhea #90 tabs 01/12/23 02/07/23 Rx mg-0.025 mg tablet (Lomotil) tamsulosin 0.4 mg capsule 0.4 mg PO DAILY #90 caps 01/23/23 02/07/23 Rx ketoconazole 2 % topical cream 1 applic topical DAILY #30 grams 01/30/23 02/07/23 Rx cariprazine 1.5 mg capsule 1.5 mg PO DAILY #30 caps 01/31/23 02/07/23 Rx (Vraylar) propranolol 20 mg tablet 20 mg PO BID #60 tabs 02/07/23 02/07/23 Rx benztropine 0.5 mg tablet 0.5 mg PO BID #60 tabs 02/14/23 Rx iron,carbonyl 65 mg-vitamin C 125 1 tab PO DAILY RLS #60 tabs 02/15/23 Rx mg tablet,delayed release (Vitron-C) Patient History Medical History Bipolar 1 disorder Bipolar disorder Cervical pain Epididymitis Esophageal reflux Family history of melanoma Generalized anxiety disorder Human immunodeficiency virus (HIV) disease Dx around 2001 - 2002 Inguinal lymphadenitis Kidney stones Leg swelling Lumbar pain Nodule of groin Obesity Peripheral neuropathy Restless leg syndrome Spondylosis of cervical region without myelopathy or radiculopathy Thoracic back pain Vitamin B12 deficiency Vitamin D deficiency disease Surgical History S/P cholecystectomy S/P gastric surgery Status post gastric bypass for obesity Family History Mother Diabetes Systemic lupus erythematosus Father Melanoma Myocardial infarction Prostate cancer Other Ulcerative colitis Denies family history of Ovarian cancer Crohn's disease Breast cancer Colorectal cancer Irritable bowel syndrome Social History Smoking Status: Never smoker Do You Dip or Chew Tobacco: No; Hx Alcohol Use: No Hx Substance Use: No Preferred Language: Zambian Visual Impairment: No Limitations Hearing Ability: Normal 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 There is ecchymosis and staining of blood products in the skin, all consistent with a subcutaneous hematoma. There is some surrounding subcutaneous edema outside of the area of the palpable hematoma. Motor and sensory function is intact distally in the superficial peroneal, deep peroneal, and tibial nerve distributions. Intact ankle and toe dorsiflexion. No pain with passive stretch. Foot is warm and well-perfused with an easily palpable 2+ dorsalis pedis pulse. Results & Data Vital Signs (Past 12 Hours) Vital Signs Temp Pulse Resp BP Pulse Ox O2 Del Method 02/17/23 07:00 54 L 13 97 02/17/23 07:00 144/100 H 02/17/23 06:30 55 L 12 153/77 H 95 02/17/23 06:00 58 L 16 148/75 H 97 02/17/23 05:30 49 L 12 177/87 H 96 02/17/23 05:00 49 L 12 168/83 H 90 02/17/23 04:30 53 L 13 168/94 H 94 02/17/23 04:40 53 L 02/17/23 04:00 52 L 14 149/96 H 94 02/17/23 03:44 53 L 19 151/87 H 93 02/17/23 03:52 52 L 16 94 Room Air 02/17/23 02:32 36.8 C 64 20 150/90 H 97 Room Air Diagnostic Findings Left tib-fib x-rays and CT angiogram of the left lower leg were independently interpreted by me. No fracture seen on x-ray. CT shows a large fluid collection consistent with hematoma on the anterior medial aspect of the lower leg. It is clearly above the fascial layer and within the subcutaneous tissues. It courses fairly superficial distally. There is slight mass effect compression of the lower leg musculature from this fluid collection, but no intracompartmental fluid collection or swelling is noted. No associated fractures are seen.
[2023-02-17] MEDS ORDERED: ONDANSETRON INJ 2 MG/ML 2 ML VIAL IV PRN (08:23)
[2023-02-17] MEDS ORDERED: ACETAMINOPHEN 325 MG TAB PO PRN (08:23)
[2023-02-17] MEDS ORDERED: hydrOXYzine HCl 25 MG TAB PO PRN (08:23)
[2023-02-17] MEDS ORDERED: HYDROCODONE/ACETAMINOPHEN 7.5/325MG TAB PO PRN (09:07)
[2023-02-17] MEDS: CHOLECALCIFEROL 5,000 UNITS 125 MCG TAB PO SCH (11:23)
[2023-02-17] MEDS: BENZTROPINE MESYLATE 0.5 MG TAB PO SCH ×2 (11:23→21:38)
[2023-02-17] MEDS: CYANOCOBALAMIN (B-12) 500 MCG TABLET PO SCH (11:24)
[2023-02-17] MEDS: PREGABALIN 150 MG CAP PO SCH ×2 (11:24→21:39)
[2023-02-17] MEDS: PROPRANOLOL HCL 20 MG TAB PO SCH ×2 (11:24→21:38)
[2023-02-17] MEDS: LITHIUM CARBONATE 300 MG TAB PO SCH (11:24)
[2023-02-17] MEDS: SERTRALINE HCL 100 MG TABLET PO SCH (11:25)
--- NOTE | 2023-02-17 13:08 | Discharge Summary ---
Date of Service February 17, 2023 Admission HPI Per Admitting Provider Vijay is a 57 year old male w/ PmHx HIV, JERICHO, sleep apnea, HTN, bipolar 1 disorder, GERD, peripheral neuropathy coming into the ED for L leg swelling and pain. Patient states earlier around midnight he was going to sit down on his computer chair when he stepped backwards and twisted his left leg. The twisting was painful for him and he had swelling at the LLE that worsened as time went on. He came into the ED for the swelling that kept growing and large amount of pain. He denies any loss of sensation at the LLE. He is not on any blood thinners, only on low dose aspirin daily, last aspirin a little over 24 hours ago. He denies any other symptoms of lightheadedness, dizziness, fevers, chills, shortness of breath, chest pain, nausea, vomiting, diarrhea, dysuria. In the ED Hgb 13, CMP unremarkable. CXR w/ poor inspiratory effort, unremarkable otherwise. XR Knee and fib/tib w/ medial soft tissue swelling. CTA lower extremity w/ widely patent 2 vessel runoff in foot, large left medial calf hematoma centered on an actively extravasating vein in subcutaneous soft tissues - no arterial hemorrhage is identified on study. Admission Exam Per Admitting Provider Constitutional: WD/WN, vitals as above Eyes: PERRL, conjunctivae normal, anicteric sclerae Respiratory: normal respiratory effort, lungs clear to auscultation Cardiovascular: RRR, no murmur, no edema Pedal pulses 2+ at bilateral lower extremities. Gastrointestinal (Abdomen): normal bowel sounds, soft, nontender, no hepatosplenomegaly Musculoskeletal: Patient able to move bilateral feet with good range of motion in active and passive motion. Swelling at medial anterior ramos wrapped in FADI bandage. Skin: LL foot without warm, dry, no abnormalities. Neurologic: Sensation in tact at bilateral lower extremities. Psychiatric: A+Ox3, euthymic affect Principal Diagnosis Hematoma Left lower leg Discharge Exam Constitutional WD/WN, vitals as above Neck trachea midline, no thyromegaly Respiratory normal respiratory effort, lungs clear to auscultation Cardiovascular RRR, no murmur, no edema Gastrointestinal (Abdomen) normal bowel sounds, soft, nontender, no hepatosplenomegaly Musculoskeletal Significant swelling left anterior and medial aspect of the leg. Intact pulses and sensation, full acive and passive ROM. Foot is warm and good capillary refill Skin ecchymoses and hematoma left lower leg Psychiatric A+Ox3, euthymic affect Discharge Data Allergies Allergy/AdvReac Type Severity Reaction Status Date / Time mercury (elemental) Allergy Intermediate Facial Verified 02/07/23 13:04 swelling, Nausea/Vomiting strawberry Allergy Intermediate rash Verified 02/07/23 13:04 shrimp AdvReac Intermediate ALL Verified 02/07/23 13:04 SEAFOOD D/T MERCURY RELATED. doxepin AdvReac Unknown CAN'T Verified 02/07/23 13:04 REMEMBER TOO LONG AGO Consultations 02/17/23 04:04 ED Decision to Admit Stat 02/17/23 04:05 Consult Orthopedic Surgery Stat 02/17/23 08:23 Consult Orthopedic Surgery Routine Ordered Studies 02/17/23 03:01 CTA LE LT w and wo if don [CT angio LE LT w inc wo if don] Stat IMPRESSION: 1. Widely patent 2 vessel runoff in the foot 2. Large left medial calf hematoma centered on an actively extravasating vein in the subcutaneous soft tissues. No arterial hemorrhage is identified on this study. Total Time Total Time Spent Total Time Spent (In Minutes): 45 Discharge Plan Discharge Items Patient Disposition: Home - Self-Care Reason For Visit: LLE SWELLING Discharge Diagnosis: hematoma left leg Activity: Resume your previous activity Non-emergency contact: Primary Care Provider Call non-emergency contact if: you have any medication questions, your symptoms worsen, your pain is not controlled, your pain is worsening and your wound has increased redness Follow-up/Referrals: Felicity Colon MD [Primary Care Provider] - Diet: Regular Addtl Attending Provider Instructions: You were admitted after sustaining a fall and suffering a hematoma left lower leg. You had a CT scan of the le revealing normal flow of blood to the foot. No evidence of compartment syndrome or intracompartmental fluid collection or swelling. You were examined by an orthopedist who recommended you use Fadi wrap compression, ice, elevation, and activity modifications as needed. This will likely take several months to completely resorb. Continue to avoid Aspirin until follow up with PCP Pending Studies at Discharge: No Stand-Alone Forms: My [facility] [place], Smoking Cessation Medications and DC Order Prescriptions: Continued ketoconazole 2 % shampoo 1 applic TOP .COMPLEX Qty: 120 5RF Rx Instructions: 1 applic TOP Wash scalp twice weekly as directed. Let sit 3-5 minutes prior to rinsing.; hydrochlorothiazide 25 mg tablet 25 mg PO QAM PRN (Reason: Fluid Retention) Qty: 90 1RF pregabalin 300 mg capsule 300 mg PO BID 30 Days Qty: 60 5RF Hold Instructions: not takes cyanocobalamin (vitamin B-12) 1,000 mcg tablet, sublingual 1,000 mcg sublingual QAM Qty: 90 1RF ropinirole 3 mg tablet 3 mg PO QPM Qty: 30 1RF sumatriptan succinate [Imitrex] 100 mg tablet 100 mg PO .COMPLEX PRN (Reason: migraine headache) 30 Days Qty: 9 1RF Rx Instructions: take one at onset of headache, may repeat in 2 hours prn, limit 2-3 days / week PRN cholecalciferol (vitamin D3) 125 mcg (5,000 unit) capsule 125 mcg PO DAILY Qty: 90 3RF diphenoxylate-atropine [Lomotil] 2.5-0.025 mg tablet 1 tab PO TID PRN (Reason: diarrhea) Qty: 90 1RF ketoconazole 2 % cream 1 applic topical DAILY Qty: 30 2RF Rx Instructions: Apply to areas of the face once daily as directed. benztropine 0.5 mg tablet 0.5 mg PO BID Qty: 60 2RF Vitron-C 65 mg iron- 125 mg tablet,delayed release (DR/EC) 1 tab PO DAILY Qty: 60 6RF hydrocortisone 2.5 % cream 1 applic TOP DAILY PRN (Reason: SKIN IRRITATION NEEDED) Rx Instructions: Apply to areas of the face daily for up to 7 days as needed for flaring. Biktarvy 50-200-25 mg tablet 1 tab PO QAM Qty: 30 2RF hydroxyzine HCl 25 mg tablet 25 mg PO DIRECTED PRN (Reason: NEEDED) Vraylar 1.5 mg capsule 1.5 mg PO DAILY Qty: 30 2RF sertraline [Zoloft] 25 mg tablet 200 mg PO DAILY propranolol 20 mg tablet 20 mg PO BID Qty: 60 3RF Austedo 12 mg tablet 12 mg PO BID tamsulosin 0.4 mg capsule 0.4 mg PO DAILY Qty: 90 3RF celecoxib 100 mg capsule 100 mg PO QAM lithium carbonate 300 mg capsule See Rx Instructions .ROUTE .COMPLEX Rx Instructions: TAKES 300 MG QAM, THEN 600 MG QPM. acetaminophen [Acetaminophen Extra Strength] 500 mg Tablet 500 mg PO Q6H PRN (Reason: Pain) methocarbamol 750 mg tablet 750 mg PO TID PRN (Reason: MUSCLE SPASMS) Admission Data Admit Date/Time: 02/17/23 05:08 Attending Provider: Gilberto Weaver Admit Provider: Gilberto Weaver Primary Care Provider: Felicity Colon V. Other Providers: Gregg Au ; Sarbjit Rodrigez Coding Level of Care Code None Diagnoses
[2023-02-17] MEDS: TAMSULOSIN HCL 0.4 MG CAP PO SCH (14:14)
[2023-02-17] MEDS: FERROUS SULFATE 325 MG TAB PO SCH (14:14)
--- NOTE | 2023-02-17 17:48 | Communication Note ---
Date of Service: February 17, 2023 Patient was discharged as there is no intervention orthopedic procedure to be undertaken however the patient informed staff that he has no safe place to go s ubsequent discharge was canceled until safe disposition can be coordinated
--- NOTE | 2023-02-17 20:22 | Billing Data ---
Date of Service February 17, 2023 Coding Level of Care Code 51510 INT INP/OBS CARE
[2023-02-17] MEDS ORDERED: rOPINIRole HCL 1 MG TABLET PO SCH (21:00)
[2023-02-17] MEDS ORDERED: LITHIUM CARBONATE 300 MG TAB PO SCH (21:00)
--- NOTE | 2023-02-18 07:26 | Electrocardiogram Report ---
Test Reason : Blood Pressure : / mmHG Vent. Rate : 050 BPM Atrial Rate : 050 BPM P-R Int : 178 ms QRS Dur : 108 ms QT Int : 464 ms P-R-T Axes : 047 -04 002 degrees QTc Int : 423 ms Sinus bradycardia Otherwise normal ECG When compared with ECG of 02-MAY-2019 19:16, No significant change was found Confirmed by Diomedes Munoz ([id number]) on 02/18/2023 7:26:22 AM Referred By: REFERRED SELF Confirmed By:Diomedes Munoz
[2023-02-18] MEDS: PROPRANOLOL HCL 20 MG TAB PO SCH (10:55)
[2023-02-18] MEDS: BENZTROPINE MESYLATE 0.5 MG TAB PO SCH (11:00)
[2023-02-18] MEDS ORDERED: FERROUS SULFATE 325 MG TAB PO SCH (11:00)
[2023-02-18] MEDS: CYANOCOBALAMIN (B-12) 500 MCG TABLET PO SCH (11:01)
[2023-02-18] MEDS: CHOLECALCIFEROL 5,000 UNITS 125 MCG TAB PO SCH (11:01)
[2023-02-18] MEDS: LITHIUM CARBONATE 300 MG TAB PO SCH (11:01)
[2023-02-18] MEDS: SERTRALINE HCL 100 MG TABLET PO SCH (11:01)
[2023-02-18] MEDS: PREGABALIN 150 MG CAP PO SCH (11:01)
[2023-02-18] MEDS: TAMSULOSIN HCL 0.4 MG CAP PO SCH (11:02)
[2023-02-18] MEDS: FERROUS SULFATE 325 MG TAB PO SCH (11:10)
== END 2023-02-18 13:39 | disposition home or self-care (01) | DRG 605 ==
LOC: ED 02:30 → SUATTDRO 05:08 → 2W 05:08

== ENCOUNTER 2023-03-26 14:02 | Inpatient (IN) ==
--- NOTE | 2023-03-26 14:16 | ED Triage Note ---
Date of Service March 26, 2023 History of Present Illness This patient was briefly evaluated while in triage. An abbreviated physical exam was performed. This patient is a 57-year-old Male who presents to the ED for evaluation of Sent by home health nurse to have left leg wound evaluated. Was seen here last month for left leg wound and sent to [facility] [place] had surgical debridement, using a wound vac not currently on antibiotics subjectively feverish Increased pain, swelling and discharge with foul smell was supposed to see the [facility] tomorrow Physical Exam GENERAL: NAD, ambulatory into triage CARDIOVASCULAR: RRR RESPIRATORY: CTA EXT: large medial calf open wound with foul smelling pus drainage from superior aspect. Red, warm and swollen around the wound. Initial orders for labs and / or imaging were placed and patient was placed in the waiting area until a bed is available. Please see further documentation for the full ED course.
[2023-03-26 15:51] LABS: Basophils # (auto) 0.03 K/uL (0-0.2); Basophils % (auto) 0.5 %; Eosinophils # (auto) 0.14 K/uL (0-0.50); Eosinophils % (auto) 2.5 %; Hematocrit (blood only) 36.7 % (42.0-52.0); Hemoglobin 11.6 g/dl (14.0-18.0); Immature Granulocytes # (auto) 0.03 K/uL (0.01-0.20); Immature Granulocytes % (auto) 0.5 %; Lymphocytes # (auto) 1.66 K/uL (1.2-3.4); Mean Corpuscular Hemoglobin 26.6 pg (25.0-34.0); Mean Corpuscular Hgb Conc 31.6 g/dL (32.0-36.0); Mean Corpuscular Volume 84.2 fL (80.0-100.0); Mean Platelet Volume 11.5 fL (9.4-12.4); Monocytes # (auto) 0.36 K/uL (0.11-0.59); Monocytes % (auto) 6.5 %; Neutrophils # (auto) 3.31 K/uL (1.40-6.50); Platelet Count 221 K/uL (130-400); RDW Coefficient of Variation 13.6 % (11.5-14.5); RDW Standard Deviation 42.1 fL (36.4-46.3); Red Blood Count 4.36 M/uL (4.70-6.10); White Blood Count 5.53 K/ul (4.8-10.8)
[2023-03-26 16:05] LABS: Albumin Level 3.9 gm/dl (3.4-5.0); BUN Creatinine Ratio 20.8 (10-20); Bilirubin Direct 0.2 mg/dl (0-0.2); Bilirubin,Total 0.5 mg/dl (0.2-1.0); Calcium 8.9 mg/dl (8.6-10.3); Creatinine Clr Calc Pharmacy 144.5 ml/min; Est GFR (African American) 121.7 ml/min; Magnesium 1.9 mg/dl (1.7-2.4); Total Protein 7.4 gm/dl (6.0-8.3)
--- NOTE | 2023-03-26 16:15 | Emergency Department Note ---
Impression & Plan Wound cellulitis ADMIT ED Provider Note HPI: The patient is a 57-year-old gentleman with history of bipolar 1 disorder, hypertension, hypertriglyceridemia, HIV, generalized anxiety disorder, obesity, presents the emergency department for evaluation of a wound to the left lower extremity. Patient states he received a visit from his home nurse today for wound VAC change and they had concern that the wound was infected and therefore he was sent to the ED to be assessed. Patient states that he originally injured himself in early February when he slipped getting out of a chair, he had a hematoma in the area of his In the left lower extremity and was eventually sent to a tertiary care center where the wound was debrided and the patient was set up with wound VAC. Patient states he has not been on any antibiotics. He states that the home nurse/wound nurse came to his house today to change out his wound VAC and had concerned about the smell and appearance of the wound. Patient states that he has had some more pain in the proximal aspect of the wound over the past 3 days. On arrival here to the ED the patient is in no acute distress, he is afebrile, motor and sensory function is intact distally in the left foot. ROS: - Per HPI Differential Diagnosis: Necrotizing soft tissue infection, abscess, wound cellulitis, amongst other potential pathologies. *Outpatient medications and allergy history reviewed. *Pertinent external medical records reviewed. PE: General: Alert HEENT: Normocephalic, trachea midline Eyes: Extraocular eye movement is intact, no scleral erythema Pulmonary: Clear to auscultation bilaterally, no wheezing Cardio: Regular rate and rhythm GI: Abdomen is soft to palpation : No suprapubic tenderness MSK: No evidence of trauma or malformation of the extremities, no edema Skin: There is a large wound to the medial aspect of the left lower extremity below the knee and above the left ankle with some surrounding erythema to the proximal aspect of the wound, there is no crepitus to palpation to the surround ing area of the wound/wound margins, there is no pain out of proportion to exam with palpation around the wound edges, there is a mild amount of purulence to the proximal aspect of the wound Neuro: Alert, no focal deficits Psychiatric: Cooperative Interventions provided in ED: -IV vancomycin, IV Zosyn, IV fluid bolus Medical Decision Making: Shortly after the patient arrived IV was established lab work obtained. Lab work shows no leukocytosis, hemoglobin is stable at 11.6, platelet count is within normal limits at 221, ESR moderately elevated at 50, CMP does not show any critical electrolyte abnormalities, C-reactive protein is elevated at 5.77. CT imaging of the left lower extremity was obtained and does not show any evidence of subcutaneous gas forming infection. No evidence of abscess. No osteomyelitis. There is evidence of cellulitis versus edema. Clinically the patient appears to have a wound cellulitis with some purulence to the proximal aspect of the wound. He was sent in by wound care nurse today over concern for infection and I do feel the patient has a wound cellulitis that will require IV antibiotic treatment. This was discussed with the on-call hospitalist, Dr. Siegel, and the patient was placed for admission in stable condition for further management. Consultants: Hospitalist, Dr. Siegel Disposition discussion held by myself with: Patient Diagnosis: 1. Surgical wound cellulitis, left lower extremity, acute 2. Elevated CRP 3. Elevated ESR Disposition: Admission Ramón Stewart DO Emergency Medicine Past Med/Surg History Medical History Bipolar 1 disorder Bipolar disorder Cervical pain Epididymitis Esophageal reflux Family history of melanoma Generalized anxiety disorder Human immunodeficiency virus (HIV) disease Dx around 2001 - 2002 Inguinal lymphadenitis Kidney stones Left knee sprain Leg swelling Lumbar pain Nodule of groin Obesity Peripheral neuropathy Restless leg syndrome Spondylosis of cervical region without myelopathy or radiculopathy Thoracic back pain Vitamin B12 deficiency Vitamin D deficiency disease Surgical History S/P cholecystectomy S/P gastric surgery Status post gastric bypass for obesity Family History Mother Diabetes Systemic lupus erythematosus Father Melanoma Myocardial infarction Prostate cancer Other Ulcerative colitis Denies family history of Ovarian cancer Crohn's disease Breast cancer Colorectal cancer Irritable bowel syndrome Social History Smoking Status: Never smoker Do You Dip or Chew Tobacco: No; Hx Alcohol Use: No Hx Substance Use: No Preferred Language: Telugu Communication Ability: Effective Visual Impairment: No Limitations Hearing Ability: Normal Contracting Officer Required: No Beliefs That Will Affect Care: None marital status: Current Living Situation: Spouse and Family current occupational status: disabled Feels Safe at Home: Yes Dental Care, Regularly: Yes Physical Activity Frequency: Daily Seatbelt Use: always Sunscreen Use: No Assistive Devices: None Allergies Allergies Allergy/AdvReac Type Severity Reaction Status Date / Time mercury (elemental) Allergy Intermediate Facial Verified 03/26/23 16:59 swelling, Nausea/Vomiting strawberry Allergy Intermediate rash Verified 03/26/23 16:59 shrimp AdvReac Intermediate ALL Verified 03/26/23 16:59 SEAFOOD D/T MERCURY RELATED. doxepin AdvReac Unknown CAN'T Verified 03/26/23 16:59 REMEMBER TOO LONG AGO Home Meds Home Medications Medication Instructions Recorded Confirmed celecoxib 100 mg capsule 100 mg PO QAM 05/02/19 03/26/23 lithium carbonate 300 mg capsule See Rx Instructions .Route .COMPLEX 05/02/19 03/26/23 acetaminophen 500 mg tablet 500 mg PO Q6H PRN Pain 10/25/19 03/26/23 (Acetaminophen Extra Strength) hydrocortisone 2.5 % topical cream 1 applic topical DAILY PRN SKIN 11/15/21 03/26/23 IRRITATION NEEDED hydroxyzine HCl 25 mg tablet 25 mg PO DIRECTED PRN NEEDED 01/06/22 03/26/23 sertraline 25 mg tablet (Zoloft) 200 mg PO DAILY 05/03/22 03/26/23 deutetrabenazine 12 mg tablet 12 mg PO BID 05/18/22 03/26/23 (Austedo) methocarbamol 750 mg tablet 750 mg PO TID PRN MUSCLE SPASMS 12/24/22 03/26/23 loperamide 2 mg capsule 2 mg PO TID PRN Diarrhea 03/26/23 03/26/23 Previous Rx's Medication Instructions Recorded bictegravir 50 mg-emtricitabine 1 tab PO QAM #30 tabs 01/12/20 200 mg-tenofovir alafenam 25 mg tablet (Biktarvy) ketoconazole 2 % shampoo 1 applic topical .COMPLEX #120 mL 05/18/22 hydrochlorothiazide 25 mg tablet 25 mg PO QAM PRN Fluid Retention 05/30/22 #90 tabs pregabalin 300 mg capsule 300 mg PO BID 30 days #60 caps 10/23/22 cyanocobalamin (vitamin B-12) 1,000 mcg sublingual QAM #90 tabs 11/02/22 1,000 mcg sublingual tablet ropinirole 3 mg tablet 3 mg PO QPM #30 tabs 12/29/22 cholecalciferol (vitamin D3) 125 125 mcg PO DAILY #90 caps 01/08/23 mcg (5,000 unit) capsule tamsulosin 0.4 mg capsule 0.4 mg PO DAILY #90 caps 01/23/23 ketoconazole 2 % topical cream 1 applic topical DAILY #30 grams 01/30/23 cariprazine 1.5 mg capsule 1.5 mg PO DAILY #30 caps 01/31/23 (Vraylar) propranolol 20 mg tablet 20 mg PO BID #60 tabs 02/07/23 benztropine 0.5 mg tablet 0.5 mg PO BID #60 tabs 02/14/23 iron,carbonyl 65 mg-vitamin C 125 1 tab PO DAILY RLS #60 tabs 02/15/23 mg tablet,delayed release (Vitron-C) sumatriptan succinate 100 mg 100 mg PO .COMPLEX PRN migraine 03/01/23 tablet (Imitrex) headache 30 days #9 tabs diphenoxylate-atropine 2.5 1 tab PO TID PRN diarrhea #90 tabs 03/07/23 mg-0.025 mg tablet (Lomotil) Results & Data (ED) Vital Signs Vital Signs - 24 hr 03/26/23 14:13 03/26/23 15:41 03/26/23 15:46 Temperature 36.7 C Temperature Source Oral Pulse Rate 68 Pulse Rate [Right Finger] 53 L Respiratory Rate 20 16 Respiratory Effort / Characteristics Non-Labored Respiratory Depth Normal Blood Pressure 125/86 Blood Pressure [Left Arm] 145/72 H Blood Pressure Mean 99 Blood Pressure Mean [Left Arm] 96 Blood Pressure Position Sitting Pulse Oximetry 98 98 Oxygen Delivery Method Room Air Room Air Sepsis Recent Fever Within 48 Hours Yes Sepsis New/Unexplained Change in Mental Status No Sepsis Action Taken by Nursing No Action Required 03/26/23 15:55 03/26/23 15:56 03/26/23 16:00 Temperature Temperature Source Pulse Rate 54 L 53 L Pulse Rate [Right Finger] Respiratory Rate 15 Respiratory Effort / Characteristics Respiratory Depth Blood Pressure 131/69 Blood Pressure [Left Arm] Blood Pressure Mean 94 Blood Pressure Mean [Left Arm] Blood Pressure Position Pulse Oximetry Oxygen Delivery Method Sepsis Recent Fever Within 48 Hours Sepsis New/Unexplained Change in Mental Status Sepsis Action Taken by Nursing 03/26/23 16:00 03/26/23 16:30 03/26/23 16:30 Temperature Temperature Source Pulse Rate 50 L 50 L Pulse Rate [Right Finger] Respiratory Rate 15 16 Respiratory Effort / Characteristics Respiratory Depth Blood Pressure 133/74 Blood Pressure [Left Arm] Blood Pressure Mean 97 Blood Pressure Mean [Left Arm] Blood Pressure Position Pulse Oximetry Oxygen Delivery Method Sepsis Recent Fever Within 48 Hours Sepsis New/Unexplained Change in Mental Status Sepsis Action Taken by Nursing 03/26/23 17:00 03/26/23 17:00 03/26/23 18:39 Temperature Temperature Source Pulse Rate 49 L 54 L Pulse Rate [Right Finger] Respiratory Rate 15 19 Respiratory Effort / Characteristics Respiratory Depth Blood Pressure 141/75 H 137/84 Blood Pressure [Left Arm] Blood Pressure Mean 90 101 Blood Pressure Mean [Left Arm] Blood Pressure Position Pulse Oximetry Oxygen Delivery Method Sepsis Recent Fever Within 48 Hours Sepsis New/Unexplained Change in Mental Status Sepsis Action Taken by Nursing 03/26/23 19:00 03/26/23 19:30 Temperature Temperature Source Pulse Rate 52 L 48 L Pulse Rate [Right Finger] Respiratory Rate 15 16 Respiratory Effort / Characteristics Respiratory Depth Blood Pressure 149/81 H 132/70 Blood Pressure [Left Arm] Blood Pressure Mean 103 90 Blood Pressure Mean [Left Arm] Blood Pressure Position Pulse Oximetry 99 Oxygen Delivery Method Room Air Sepsis Recent Fever Within 48 Hours Sepsis New/Unexplained Change in Mental Status Sepsis Action Taken by Nursing Laboratory Data 03/26/23 15:34 03/26/23 15:34 Lab Results 03/26/23 03/26/23 03/26/23 Range/Units 15:34 15:34 15:34 WBC 5.53 (4.8-10.8) K/ul RBC 4.36 L (4.70-6.10) M/uL Hgb 11.6 L (14.0-18.0) g/dl Hct 36.7 L (42.0-52.0) % MCV 84.2 (80.0-100.0) fL MCH 26.6 (25.0-34.0) pg MCHC 31.6 L (32.0-36.0) g/dL RDW Std Deviation 42.1 (36.4-46.3) fL RDW Coeff of Bereket 13.6 (11.5-14.5) % Plt Count 221 (130-400) K/uL MPV 11.5 (9.4-12.4) fL Immature Gran % (Auto) 0.5 % Neut % (Auto) 60.0 % Lymph % (Auto) 30.0 % [place] % (Auto) 6.5 % Eos % (Auto) 2.5 % Baso % (Auto) 0.5 % Neut # (Auto) 3.31 (1.40-6.50) K/uL Lymph # (Auto) 1.66 (1.2-3.4) K/uL [place] # (Auto) 0.36 (0.11-0.59) K/uL Eos # (Auto) 0.14 (0-0.50) K/uL Baso # (Auto) 0.03 (0-0.2) K/uL Immature Gran # (Auto) 0.03 (0.01-0.20) K/uL ESR (0-20) mm/hr Sodium 140 (136-145) mmol/L Potassium 4.0 (3.5-5.1) mmol/L Chloride 110 H (98-107) mmol/L Carbon Dioxide 24 (21-32) mmol/L Anion Gap 6 (3-11) BUN 15 (6-23) mg/dl Creatinine 0.72 (0.6-1.4) mg/dl Est Cr Clr Drug Dosing 144.5 ml/min Est GFR ( Amer) 121.7 ml/min Est GFR (Non-Af Amer) 105.0 ml/min BUN/Creatinine Ratio 20.8 H (10-20) Glucose 109 H (70-99(Fasting)) mg/dl Lactate 1.3 (0.4-2.0) mmol/L Calcium 8.9 (8.6-10.3) mg/dl Magnesium 1.9 (1.7-2.4) mg/dl Total Bilirubin 0.5 (0.2-1.0) mg/dl Direct Bilirubin 0.2 (0-0.2) mg/dl AST 51 H (13-39) U/L ALT 21 (7-52) U/L Alkaline Phosphatase 128 H (34-104) U/L C-Reactive Protein 5.77 H (0-0.5) mg/dl Total Protein 7.4 (6.0-8.3) gm/dl Albumin 3.9 (3.4-5.0) gm/dl Procalcitonin (0-0.5) ng/ml SARS-CoV-2, RNA, NAAT (NEGATIVE) 03/26/23 03/26/23 03/26/23 Range/Units 15:34 15:34 19:03 WBC (4.8-10.8) K/ul RBC (4.70-6.10) M/uL Hgb (14.0-18.0) g/dl Hct (42.0-52.0) % MCV (80.0-100.0) fL MCH (25.0-34.0) pg MCHC (32.0-36.0) g/dL RDW Std Deviation (36.4-46.3) fL RDW Coeff of Bereket (11.5-14.5) % Plt Count (130-400) K/uL MPV (9.4-12.4) fL Immature Gran % (Auto) % Neut % (Auto) % Lymph % (Auto) % Marathon % (Auto) % Eos % (Auto) % Baso % (Auto) % Neut # (Auto) (1.40-6.50) K/uL Lymph # (Auto) (1.2-3.4) K/uL Marathon # (Auto) (0.11-0.59) K/uL Eos # (Auto) (0-0.50) K/uL Baso # (Auto) (0-0.2) K/uL Immature Gran # (Auto) (0.01-0.20) K/uL ESR 50 H (0-20) mm/hr Sodium (136-145) mmol/L Potassium (3.5-5.1) mmol/L Chloride (98-107) mmol/L Carbon Dioxide (21-32) mmol/L Anion Gap (3-11) BUN (6-23) mg/dl Creatinine (0.6-1.4) mg/dl Est Cr Clr Drug Dosing ml/min Est GFR ( Amer) ml/min Est GFR (Non-Af Amer) ml/min BUN/Creatinine Ratio (10-20) Glucose (70-99(Fasting)) mg/dl Lactate (0.4-2.0) mmol/L Calcium (8.6-10.3) mg/dl Magnesium (1.7-2.4) mg/dl Total Bilirubin (0.2-1.0) mg/dl Direct Bilirubin (0-0.2) mg/dl AST (13-39) U/L ALT (7-52) U/L Alkaline Phosphatase (34-104) U/L C-Reactive Protein (0-0.5) mg/dl Total Protein (6.0-8.3) gm/dl Albumin (3.4-5.0) gm/dl Procalcitonin 0.10 (0-0.5) ng/ml SARS-CoV-2, RNA, NAAT NEGATIVE (NEGATIVE) Administered Medications Vancomycin HCl 2,250 mg/ (Sodium Chloride) 545 mls @ 200 mls/hr IV NOW ONE Stop: 03/26/23 22:42 Last Admin: 03/26/23 20:16 Dose: 200 mls/hr Documented By: CECILIA Discontinued Medications Sodium Chloride (Nss 1000ml) 500 mls @ 999 mls/hr IV .Q31M ONE Stop: 03/26/23 16:49 Last Infusion: 03/26/23 17:17 Dose: 0 mls/hr Documented By: Admin: 03/26/23 16:46 Dose: 999 mls/hr Documented By: BRIANA Piperacillin Sod/Tazobactam Sod (Zosyn) 4.5 gm in 120 mls @ 240 mls/hr IV NOW ONE Stop: 03/26/23 18:56 Last Infusion: 03/26/23 19:24 Dose: 0 mls/hr Documented By: Admin: 03/26/23 18:39 Dose: 240 mls/hr Documented By: BRIANA Ioversol (Optiray 320 100ml) 92 ml IV ONCE ONE Stop: 03/26/23 17:43 Last Admin: 03/26/23 17:43 Dose: 92 ml Documented By: ANA Imaging Data Radiologist's Impression: Lower Extremity CT 03/26/23 14:17 CT OF THE LEFT TIBIA AND FIBULA WITH CONTRAST CLINICAL HISTORY: Left lower leg wound. EVALUATE ABSCESS, NECROTIZING FASCITIS COMPARISON STUDY: CT of the left tibia and fibula March 06, 2023. TECHNIQUE: Axial images of the left tibia and fibula and lower leg were obtained following intravenous injection of 92 cc of Optiray 320 IV. Sagittal and coronal reconstructions were viewed. Automated exposure control was utilized for the study. A dose lowering technique was utilized adhering to the principles of ALARA. FINDINGS: No fracture within the left tibia or fibula is noted. There is no evidence for acute osteomyelitis within the left tibia or fibula by CT. There is no left knee joint effusion. Subcutaneous edema of the left lower leg is again noted. There is skin thickening of the medial left lower leg with an associated wound. The large fluid collection within the medial left lower leg on CT of March 06, 2023 has nearly completely resolved. There is a small residual fluid and gas containing collection which measure 6 x 0.7 cm. The soft tissue gas extends towa rd the wound. The gas extends superiorly to the level of the proximal left tibia. No additional sites of soft tissue gas are present. There is no fascial fluid. No new fluid collections are present. IMPRESSION: 1. No evidence for acute osteomyelitis within the left tibia or fibula. Persistent left lower leg subcutaneous fluid and skin thickening. This could reflect edema or cellulitis. 2. Medial left lower leg wound with near complete resolution of associated fluid collection shown on CT of March 06, 2023. Small residual fluid and gas containing collection. The subcutaneous gas is likely related to the open wound. A gas- forming infectious process is considered less likely but could have a similar imaging appearance. ACT 112: Negative or not required by law. Electronically signed by: Dwight Hercules M.D. 03/26/2023 5:57 PM Discharge Plan Visit Data Chief Complaint: Infection, Wound Stated Complaint: WOUND ISSUSES ED Provider: Ramón Stewart Discharge Problem: Wound cellulitis
[2023-03-26] MEDS ORDERED: SODIUM CHLORIDE 0.9% 1000ML 500 ML IV ONE (16:19)
[2023-03-26] MEDS ORDERED: OPTIRAY 320 100ml IV ONE (17:42)
--- NOTE | 2023-03-26 17:59 | CT Scan Report ---
CT OF THE LEFT TIBIA AND FIBULA WITH CONTRAST CLINICAL HISTORY: Left lower leg wound. EVALUATE ABSCESS, NECROTIZING FASCITIS COMPARISON STUDY: CT of the left tibia and fibula March 06, 2023. TECHNIQUE: Axial images of the left tibia and fibula and lower leg were obtained following intravenou s injection of 92 cc of Optiray 320 IV. Sagittal and coronal reconstructions were viewed. Automated e xposure control was utilized for the study. A dose lowering technique was utilized adhering to the p rinciples of SHAHIDA. FINDINGS: No fracture within the left tibia or fibula is noted. There is no evidence for acute osteom yelitis within the left tibia or fibula by CT. There is no left knee joint effusion. Subcutaneous luís ma of the left lower leg is again noted. There is skin thickening of the medial left lower leg with a n associated wound. The large fluid collection within the medial left lower leg on CT of March 06 has nearly completely resolved. There is a small residual fluid and gas containing collection which measure 6 x 0.7 cm. The soft tissue gas extends toward the wound. The gas extends superiorly to the level of the proximal left tibia. No additional sites of soft tissue gas are present. There is no fas cial fluid. No new fluid collections are present. IMPRESSION: 1. No evidence for acute osteomyelitis within the left tibia or fibula. Persistent left lower leg sub cutaneous fluid and skin thickening. This could reflect edema or cellulitis. 2. Medial left lower leg wound with near complete resolution of associated fluid collection shown on CT of March 06, 2023. Small residual fluid and gas containing collection. The subcutaneous gas is like ly related to the open wound. A gas-forming infectious process is considered less likely but could choudhury ve a similar imaging appearance. ACT 112: Negative or not required by law. Electronically signed by: Dwight Hercules M.D. 03/26/2023 5:57 PM
[2023-03-26] MEDS ORDERED: PIPERACILLIN/TAZOBACTAM 4.5 GM/120 ML BAG IV ONE (18:27)
[2023-03-26] MEDS ORDERED: VANCOMYCIN CONSULT ACTIVE PRN ×2 (18:27→19:59)
[2023-03-26] MEDS ORDERED: VANCOMYCIN HCL 2,250 MG in SODIUM CHLORIDE 0.9% 500 ML IV ONE ×2 (18:27→19:59)
--- NOTE | 2023-03-26 18:40 | History & Physical Report ---
Date of Service March 26, 2023 Assessment & Plan (1) Wound of left leg: Plan: 57 yo male with PMHx of HIV, RLS, peripheral neuropathy, essential tremor, dyskinesia, anxiety, bipolar, chronic low back pain, and recent extravasating hematoma presents with L lower extremity infection. #Left lower extremity wound/cellulitis #Recent extravasating LLE hematoma -presented with few days of pain/erythema surrounding pre-existing leg wound from recent hematoma 2/2 trauma. No leukocytosis. Does not meet sepsis criteria. No crepitus appreciated, low suspicion for necrotizing fasciitis. Elevated CRP. -CT leg: no osteomyelitis, persistent left lower leg subcutaneous fluid and skin thickening. Medial left lower leg wound with near complete resolution of associated fluid collection shown on CT of March 06, 2023. -Received zosyn and vanc in ED. Pt does report h/o of MRSA skin infection. Will cont. with Unasyn and vanc. MRSA nares pending. With h/o HIV however reports undetectable levels last month so will defer pseudomonal coverage for now. -blood and wound cx pending -cellulitis marked -wound care consulted, may need further wound vac #H/o HIV -cont. home Biktarvy #RLS -cont. home ropinirole #Peripheral neuropathy -cont. home pregabalin #Essential tremor #Dyskinesia -cont. home benztropine, austedo #Anxiety #Bipolar -cont. home vraylar, lithium, sertraline #Low back pain, chronic -cont. home celecoxib #RICHARD -cont. home cpap hs DVT ppx: Lovenox FEN/GI: Regular Code Status: DNI/DNR Dispo: Med Surg (2) Cellulitis of leg without foot, left: (3) Bipolar 1 disorder: (4) Human immunodeficiency virus (HIV) disease: (5) Generalized anxiety disorder: (6) Peripheral neuropathy: (7) Restless leg syndrome: (8) Essential tremor: (9) Sleep apnea: (10) Lower back pain: (11) Dyskinesia of mouth: (12) Traumatic hematoma of left lower leg: History of Present Illness Chief Complaint: Wound Primary Care Provider: Felicity Colon MD 57 yo male with PMHx of HIV, RLS, peripheral neuropathy, essential tremor, dyskinesia, anxiety, bipolar, chronic low back pain, and recent extravasating hematoma presents with L lower extremity infection. About 1 month ago pt developed a LLE hematoma from trauma to leg. This developed into a leg wound requiring I&D. He was discharged from [facility] 1-2 wks ago and has been following with wound care at home. He did have a wound vac in place which was held off today due to concern for infection. He does state the surrounding wound has been warm and increasingly painful over the past few days with exacerbation of pain when ambulating. Denies chest pain, sob, cough, abd pain, N/V, dysuria. He has not been on abx in the outpatient setting. Of note, pt does report having MRSA skin infections in the past when he was in [place]. He also has a h/o of HIV, states his viral load 1 month ago was undetectable but is unsure about his CD4 count. Allergies Allergy/AdvReac Type Severity Reaction Status Date / Time mercury (elemental) Allergy Intermediate Facial Verified 03/26/23 16:59 swelling, Nausea/Vomiting strawberry Allergy Intermediate rash Verified 03/26/23 16:59 Fish Containing Products Allergy Verified 03/27/23 11:59 fish derived Allergy Verified 03/27/23 11:59 fish oil Allergy Verified 03/27/23 11:59 shrimp AdvReac Intermediate ALL Verified 03/26/23 16:59 SEAFOOD D/T MERCURY RELATED. doxepin AdvReac Unknown CAN'T Verified 03/26/23 16:59 REMEMBER TOO LONG AGO Home Medications Medication Instructions Recorded Confirmed Type celecoxib 100 mg capsule 100 mg PO QAM 05/02/19 03/26/23 History lithium carbonate 300 mg capsule See Rx Instructions .Route .COMPLEX 05/02/19 03/26/23 History acetaminophen 500 mg tablet 500 mg PO Q6H PRN Pain 10/25/19 03/26/23 History (Acetaminophen Extra Strength) bictegravir 50 mg-emtricitabine 1 tab PO QAM #30 tabs 01/12/20 03/26/23 Rx 200 mg-tenofovir alafenam 25 mg tablet (Biktarvy) hydrocortisone 2.5 % topical cream 1 applic topical DAILY PRN SKIN 11/15/21 03/26/23 History IRRITATION NEEDED hydroxyzine HCl 25 mg tablet 25 mg PO DIRECTED PRN NEEDED 01/06/22 03/26/23 History sertraline 25 mg tablet (Zoloft) 200 mg PO DAILY 05/03/22 03/26/23 History deutetrabenazine 12 mg tablet 12 mg PO BID 05/18/22 03/26/23 History (Austedo) ketoconazole 2 % shampoo 1 applic topical .COMPLEX #120 mL 05/18/22 03/26/23 Rx hydrochlorothiazide 25 mg tablet 25 mg PO QAM PRN Fluid Retention 05/30/22 03/26/23 Rx #90 tabs pregabalin 300 mg capsule 300 mg PO BID 30 days #60 caps 10/23/22 03/26/23 Rx cyanocobalamin (vitamin B-12) 1,000 mcg sublingual QAM #90 tabs 11/02/22 03/26/23 Rx 1,000 mcg sublingual tablet methocarbamol 750 mg tablet 750 mg PO TID PRN MUSCLE SPASMS 12/24/22 03/26/23 History ropinirole 3 mg tablet 3 mg PO QPM #30 tabs 12/29/22 03/26/23 Rx cholecalciferol (vitamin D3) 125 125 mcg PO DAILY #90 caps 01/08/23 03/26/23 Rx mcg (5,000 unit) capsule tamsulosin 0.4 mg capsule 0.4 mg PO DAILY #90 caps 01/23/23 03/26/23 Rx ketoconazole 2 % topical cream 1 applic topical DAILY #30 grams 01/30/23 03/26/23 Rx cariprazine 1.5 mg capsule 1.5 mg PO DAILY #30 caps 01/31/23 03/26/23 Rx (Vraylar) propranolol 20 mg tablet 20 mg PO BID #60 tabs 02/07/23 03/26/23 Rx benztropine 0.5 mg tablet 0.5 mg PO BID #60 tabs 02/14/23 03/26/23 Rx iron,carbonyl 65 mg-vitamin C 125 1 tab PO DAILY RLS #60 tabs 02/15/23 03/26/23 Rx mg tablet,delayed release (Vitron-C) sumatriptan succinate 100 mg 100 mg PO .COMPLEX PRN migraine 03/01/23 03/26/23 Rx tablet (Imitrex) headache 30 days #9 tabs diphenoxylate-atropine 2.5 1 tab PO TID PRN diarrhea #90 tabs 03/07/23 03/26/23 Rx mg-0.025 mg tablet (Lomotil) loperamide 2 mg capsule 2 mg PO TID PRN Diarrhea 03/26/23 03/26/23 History Past Med/Surg History Medical History Bipolar 1 disorder Bipolar disorder Cervical pain Epididymitis Esophageal reflux Family history of melanoma Generalized anxiety disorder Human immunodeficiency virus (HIV) disease Dx around 2001 - 2002 Inguinal lymphadenitis Kidney stones Left knee sprain Leg swelling Lumbar pain Nodule of groin Obesity Peripheral neuropathy Restless leg syndrome Spondylosis of cervical region without myelopathy or radiculopathy Thoracic back pain Vitamin B12 deficiency Vitamin D deficiency disease Surgical History (Updated 03/28/23 @ 08:58 by Lina Lozada RN) History of incision and drainage (03/28/23) Incision and Drainage with Debridement of Left Lower Extremity(Left) - Rios Dawkins DO S/P cholecystectomy S/P gastric surgery Status post gastric bypass for obesity Family History Mother Diabetes Systemic lupus erythematosus Father Melanoma Myocardial infarction Prostate cancer Other Ulcerative colitis Denies family history of Ovarian cancer Crohn's disease Breast cancer Colorectal cancer Irritable bowel syndrome Social History Smoking Status: Never smoker Do You Dip or Chew Tobacco: No; Hx Alcohol Use: No Hx Substance Use: No Preferred Language: Kittitian Communication Ability: Effective Visual Impairment: No Limitations Hearing Ability: Normal Food Service Director Required: No Beliefs That Will Affect Care: None marital status: Current Living Situation: Spouse and Family Current Living Situation Comment: lives with spouse and in-laws in 2 story home current occupational status: disabled Other Information That Helps Us Care for You: No Feels Safe at Home: Yes Safety Concerns: Feels Safe At This Time Dental Care, Regularly: Yes Physical Activity Frequency: Daily Seatbelt Use: always Sunscreen Use: No Assistive Devices: CPAP and Other Review of Systems Review of Systems: All systems reviewed & are unremarkable except as noted in HPI & below Physical Exam Physical Exam: Constitutional: in no acute distress, pleasant and normal affect, intact memory. AOx3. Vitals as above. HEENT: No scleral injection or discharge.Moist mucous membranes.Clear oropharynx.+bruxism. Neck: Supple without lymphadenopathy or thyromegaly. Trachea midline. Lungs: Clear to auscultation bilaterally with good effort. No wheezes/rales/rhonchi. Cardiac: Regular rate and rhythm.No murmurs.Trace lower extremity edema L>R. 2+ distal peripheral pulses. Abdomen: Bowel sounds present. Soft, nontender, and nondistended.No guarding.No hepatosplenomegaly. MSK: No cyanosis or clubbing. Extremities motor strength 5/5. Neurologic: no focal deficits Skin: LLE: large anterior erythematous wound with some serosanguineous discharge and surrounding erythema which is tender and warm to touch. No crepitus appreciated. Results & Data Results & Data Vital Signs (Past 12 Hours) Vital Signs Temp Pulse Pulse Resp BP BP Pulse Ox 03/26/23 17:00 49 L 15 03/26/23 17:00 141/75 H 03/26/23 16:30 50 L 16 03/26/23 16:30 133/74 03/26/23 16:00 50 L 15 03/26/23 16:00 131/69 03/26/23 15:56 53 L 15 03/26/23 15:55 54 L 03/26/23 15:46 53 L 16 145/72 H 98 03/26/23 15:41 03/26/23 14:13 36.7 C 68 20 125/86 98 O2 Del Method 03/26/23 17:00 03/26/23 17:00 03/26/23 16:30 03/26/23 16:30 03/26/23 16:00 03/26/23 16:00 03/26/23 15:56 03/26/23 15:55 03/26/23 15:46 03/26/23 15:41 Room Air 03/26/23 14:13 Room Air Laboratory Results Laboratory Results WBC 5.53 K/ul (4.8-10.8) 03/26/23 15:34 RBC 4.36 M/uL (4.70-6.10) L 03/26/23 15:34 Hgb 11.6 g/dl (14.0-18.0) L 03/26/23 15:34 Hct 36.7 % (42.0-52.0) L 03/26/23 15:34 MCV 84.2 fL (80.0-100.0) 03/26/23 15:34 MCH 26.6 pg (25.0-34.0) 03/26/23 15:34 MCHC 31.6 g/dL (32.0-36.0) L 03/26/23 15:34 RDW Std Deviation 42.1 fL (36.4-46.3) 03/26/23 15:34 RDW Coeff of Bereket 13.6 % (11.5-14.5) 03/26/23 15:34 Plt Count 221 K/uL (130-400) 03/26/23 15:34 MPV 11.5 fL (9.4-12.4) 03/26/23 15:34 Immature Gran % (Auto) 0.5 % 03/26/23 15:34 Neut % (Auto) 60.0 % 03/26/23 15:34 Lymph % (Auto) 30.0 % 03/26/23 15:34 [place] % (Auto) 6.5 % 03/26/23 15:34 Eos % (Auto) 2.5 % 03/26/23 15:34 Baso % (Auto) 0.5 % 03/26/23 15:34 Neut # (Auto) 3.31 K/uL (1.40-6.50) 03/26/23 15:34 Lymph # (Auto) 1.66 K/uL (1.2-3.4) 03/26/23 15:34 [place] # (Auto) 0.36 K/uL (0.11-0.59) 03/26/23 15:34 Eos # (Auto) 0.14 K/uL (0-0.50) 03/26/23 15:34 Baso # (Auto) 0.03 K/uL (0-0.2) 03/26/23 15:34 Immature Gran # (Auto) 0.03 K/uL (0.01-0.20) 03/26/23 15:34 Sodium 140 mmol/L (136-145) 03/26/23 15:34 Potassium 4.0 mmol/L (3.5-5.1) 03/26/23 15:34 Chloride 110 mmol/L (98-107) H 03/26/23 15:34 Carbon Dioxide 24 mmol/L (21-32) 03/26/23 15:34 Anion Gap 6 (3-11) 03/26/23 15:34 BUN 15 mg/dl (6-23) 03/26/23 15:34 Creatinine 0.72 mg/dl (0.6-1.4) 03/26/23 15:34 Est Cr Clr Drug Dosing 144.5 ml/min 03/26/23 15:34 Est GFR ( Amer) 121.7 ml/min 03/26/23 15:34 Est GFR (Non-Af Amer) 105.0 ml/min 03/26/23 15:34 BUN/Creatinine Ratio 20.8 (10-20) H 03/26/23 15:34 Glucose 109 mg/dl (70-99(Fasting)) H 03/26/23 15:34 Lactate 1.3 mmol/L (0.4-2.0) 03/26/23 15:34 Calcium 8.9 mg/dl (8.6-10.3) 03/26/23 15:34 Magnesium 1.9 mg/dl (1.7-2.4) 03/26/23 15:34 Total Bilirubin 0.5 mg/dl (0.2-1.0) 03/26/23 15:34 Direct Bilirubin 0.2 mg/dl (0-0.2) 03/26/23 15:34 AST 51 U/L (13-39) H 03/26/23 15:34 ALT 21 U/L (7-52) 03/26/23 15:34 Alkaline Phosphatase 128 U/L (34-104) H 03/26/23 15:34 Total Protein 7.4 gm/dl (6.0-8.3) 03/26/23 15:34 Albumin 3.9 gm/dl (3.4-5.0) 03/26/23 15:34 Procalcitonin 0.10 ng/ml (0-0.5) 03/26/23 15:[address] 03/26/23 14:17 CT OF THE LEFT TIBIA AND FIBULA WITH CONTRAST CLINICAL HISTORY: Left lower leg wound. EVALUATE ABSCESS, NECROTIZING FASCITIS COMPARISON STUDY: CT of the left tibia and fibula March 06, 2023. TECHNIQUE: Axial images of the left tibia and fibula and lower leg were obtained following intravenous injection of 92 cc of Optiray 320 IV. Sagittal and coronal reconstructions were viewed. Automated exposure control was utilized for the study. A dose lowering technique was utilized adhering to the principles of ALARA. FINDINGS: No fracture within the left tibia or fibula is noted. There is no evidence for acute osteomyelitis within the left tibia or fibula by CT. There is no left knee joint effusion. Subcutaneous edema of the left lower leg is again noted. There is skin thickening of the medial left lower leg with an associated wound. The large fluid collection within the medial left lower leg on CT of March 06, 2023 has nearly completely resolved. There is a small residual fluid and gas containing collection which measure 6 x 0.7 cm. The soft tissue gas extends toward the wound. The gas extends superiorly to the level of the proximal left tibia. No additional sites of soft tissue gas are present. There is no fascial fluid. No new fluid collections are present. IMPRESSION: 1. No evidence for acute osteomyelitis within the left tibia or fibula. Persistent left lower leg subcutaneous fluid and skin thickening. This could reflect edema or cellulitis. 2. Medial left lower leg wound with near complete resolution of associated fluid collection shown on CT of March 06, 2023. Small residual fluid and gas containing collection. The subcutaneous gas is likely related to the open wound. A gas- forming infectious process is considered less likely but could have a similar imaging appearance. ACT 112: Negative or not required by law. Electronically signed by: Dwight Hercules M.D. 03/26/2023 5:57 PM Supervising Physician Co-Signing Physician Notes I personally saw and examined the patient. I verified all calles points and agree with resident physician Dr Manjinder Dover, with the following exceptions and/or additions: 57 year old male presents to the ER with left leg surgical wound. Previously debrided LLE hematoma at [facility] on March 11. Sent in by his home nursing who were changing his wound vac and recommended he goes to the ER as potentially requiring antibiotics. Brown pus from wound per ER physician. Increasing painful and erythematous over the last few days. Not discharged on any antibiotics from [facility]. No fever or chills. He reports prior MRSA infection of his abdominal skin previously treated down in [place]. O/E A&Ox3, HS RRR, no murmurs, Chest CTAB, Abdo SNT, Left leg wound with granulation tissue present, no pus seen, approximately 20cm in largest length (superior/inferiorly) surrounding erythema and swelling approximately 5cm surrounding this superiorly, less so inferiorly which was marked by the resident A/P Left leg wound with surrounding cellulitis - Unasyn + vancomycin (due to history of MRSA). Surface wound culture taken in the ER reportedly from brown pus although this was not currently seen on exam. Follow up blood cultures although he is not systemically unwell. Resident Activity Tracking Resident Involvement: Resident Care Provided Care Provided: Adult Hospital Medicine
[2023-03-26 19:48] LABS: C Reactive Protein 5.77 mg/dl (0-0.5)
[2023-03-26] MEDS ORDERED: ONDANSETRON 4 MG OD TAB PO PRN (21:19)
[2023-03-26] MEDS ORDERED: POLYETHYLENE (MIRALAX) 17 GM PACK PO PRN (21:19)
[2023-03-26] MEDS ORDERED: ACETAMINOPHEN 325 MG TAB PO PRN (21:19)
[2023-03-26] MEDS: PREGABALIN 150 MG CAP PO SCH (22:11)
[2023-03-26] MEDS: rOPINIRole HCL 1 MG TABLET PO SCH (22:11)
[2023-03-26] MEDS: BENZTROPINE MESYLATE 0.5 MG TAB PO SCH (22:11)
[2023-03-26 22:12] LABS: Appearance Urine Clear (Clear); Bacteria Urine Automated Negative (Negative); Bilirubin Urine Negative (Negative); Blood Urine Negative (Negative); Color Urine Yellow; Epithelial Cell Urine Auto 0-5 /lpf (0-5); Glucose Urine UA Negative (Negative); Ketones Urine Negative (Negative); Leukocyte Esterase Urine Negative (Negative); Nitrite Urine Negative (Negative); Protein Urine 1+ (Negative); RBC Urine Automated 0-4 /hpf (0-4); Specific Gravity Urine > 1.045 (1.000-1.030); Urobilinogen Urine Negative (Negative); pH Urine 5.5 (4.5-7.5)
[2023-03-26] MEDS: LITHIUM CARBONATE 300 MG TAB PO SCH (22:12)
[2023-03-26] MEDS: ENOXAPARIN INJ 40 MG/0.4 ML SYR SQ SCH (22:13)
[2023-03-27] MEDS: AMPICILLIN/SULBACTAM SOD 3,000 MG in 0.9 % SODIUM CHLORIDE 100 ML IV SCH ×2 (01:32→07:59)
[2023-03-27] MEDS: VANCOMYCIN HCL 1,500 MG in SODIUM CHLORIDE 0.9% 500 ML IV SCH ×2 (05:06→17:57)
[2023-03-27 06:31] LABS: Basophils # (auto) 0.01 K/uL (0-0.2); Basophils % (auto) 0.3 %; Eosinophils # (auto) 0.13 K/uL (0-0.50); Eosinophils % (auto) 3.3 %; Hematocrit (blood only) 29.8 % (42.0-52.0); Hemoglobin 9.5 g/dl (14.0-18.0); Immature Granulocytes # (auto) 0.02 K/uL (0.01-0.20); Immature Granulocytes % (auto) 0.5 %; Lymphocytes % (auto) 27.7 %; Mean Corpuscular Hgb Conc 31.9 g/dL (32.0-36.0); Mean Corpuscular Volume 84.7 fL (80.0-100.0); Mean Platelet Volume 11.3 fL (9.4-12.4); Monocytes % (auto) 7.6 %; Neutrophils # (auto) 2.41 K/uL (1.40-6.50); Neutrophils % (auto) 60.6 %; Platelet Count 179 K/uL (130-400); RDW Coefficient of Variation 13.9 % (11.5-14.5); RDW Standard Deviation 42.9 fL (36.4-46.3); Red Blood Count 3.52 M/uL (4.70-6.10); White Blood Count 3.97 K/ul (4.8-10.8)
[2023-03-27 06:47] LABS: Albumin Globulin Ratio 1.1 (0.9-2); Albumin Level 3.2 gm/dl (3.4-5.0); BUN Creatinine Ratio 13.3 (10-20); Bilirubin,Total 0.2 mg/dl (0.2-1.0); Calcium 8.1 mg/dl (8.6-10.3); Creatinine Clr Calc Pharmacy 125.8 ml/min; Est GFR (African American) 114.8 ml/min; Est GFR (Non-African American) 99.1 ml/min; Globulin 2.8 gm/dl (2.5-4.0); Potassium 3.5 mmol/L (3.5-5.1)
[2023-03-27] MEDS: BENZTROPINE MESYLATE 0.5 MG TAB PO SCH ×2 (08:00→20:03)
[2023-03-27] MEDS: SERTRALINE HCL 100 MG TABLET PO SCH (08:00)
[2023-03-27] MEDS: LITHIUM CARBONATE 300 MG TAB PO SCH ×2 (08:00→20:02)
[2023-03-27] MEDS: TAMSULOSIN HCL 0.4 MG CAP PO SCH (08:00)
[2023-03-27] MEDS: PREGABALIN 150 MG CAP PO SCH ×2 (08:00→20:01)
[2023-03-27] MEDS: CELECOXIB 100 MG CAP PO SCH (08:01)
--- NOTE | 2023-03-27 08:48 | Hospitalist Progress Note ---
Date of Service March 27, 2023 Assessment & Plan (1) Wound of left leg: Plan: 57 yo male with PMHx of HIV, RLS, peripheral neuropathy, essential tremor, dyskinesia, anxiety, bipolar, chronic low back pain, and recent extravasating hematoma presents with L lower extremity infection. #Left lower extremity wound/cellulitis w/ recent extravasating LLE hematoma 2nd to trauma in February of this year Presented with few days of pain/erythema, subjective fevers//chills, increased edema and foul smelling discharge from his wound and was to see [facility] today Reports hx MRSA skin infections * Of note, review [facility] dc summary noting no fever/leukocytosis and NO antibiotics were given but wound was debrided. Review of culture data at that time of discharge w/ leg culture growing E Coli/ bacteroides/Peptostreptococcus/clostridium perfringens. Prior ankle cx from the left with Enterobacter and staph aureus CT LLE: . Medial left lower leg wound with near complete resolution of associated fluid collection shown on CT of March 06, 2023. Small residual fluid and gas containing collection. The subcutaneous gas is likely related to the open wound. A gas-forming infectious process is considered less likely but could have a similar imaging appearance. Monitor cxs from admit -- staph species on preliminary - Does have prior hx MRSA in [place] and cx from 03/06 w/ ecoli, bacteroides, peptostreptococcus, clostridium perfingens, enterobacter, staph aureus Changed abx to Vanco/Zosyn for broader coverage, likely need pseudomonal coverage as well Blood cultures pending ESR/CRP trending down. Procal not significantly elevated but not negative Placed consult for general surgery and message PA this morning given fluid collection/possible need for debridement --> discussed w/ Dr Dawkins and planning for OR tomorrow for I&D and extension of wound. Monitor cx from OR when available (fluctuant pocket medial wound, purulant drainage) ID consulted --> changed abx to Cefepime/Flagyl, continues on vanc given hx MRSA Wound RN on consult for possible and likely need for wound vac following procedure (removed AM yesterday by home health). Probe 2-2.5cm deep, brown thin purulent drainage drained at bedside NPO at midnight, monitor OR cultures DVT ppx: Lovenox SQ while inpatient (monitor for any increased bleeding, patient w/ hx gastric bypass) Labs in AM (2) Cellulitis of leg without foot, left: Plan: improving, abx as above (3) Human immunodeficiency virus (HIV) disease: Plan: #H/o HIV -cont. home Biktarvy, states most recent counts undetectable Does not have with him -- discussed w/ Dr Chin and recs for similar with dolutegravir and emtrictabine/tenofovir while inpatient -- she ordered these medications as well (4) Bipolar 1 disorder: Plan: #Anxiety #Bipolar -cont. home vraylar, lithium, sertraline Of note, on lowest dose Vraylar-- does not have with/anyone to bring in (or the austedo - will need to monitor for increased mouth movements). mood stable at present -- will see if anyone else able to bring later if just not able to today. f/u tomorrow will consult liason in meantime to coordinate records/confirm appointments (5) Generalized anxiety disorder: Plan: mood stable at present (6) Peripheral neuropathy: Plan: Peripheral neuropathy -cont. home pregabalin , on B12 supp at home (7) Restless leg syndrome: Plan: #RLS -cont. home ropinirole (8) Essential tremor: Plan: #Essential tremor #Dyskinesia -cont. home benztropine, austedo (doesn't have the austedo but continued on cogentin) no increased tremor on exam at present (9) Sleep apnea: Plan: RICHARD -cont. home cpap hs (10) Lower back pain: Plan: #Low back pain, chronic -cont. home celecoxib (11) Dyskinesia of mouth: Plan: monitor for increased issues since doesn't have austedo. continue cogentin (12) Traumatic hematoma of left lower leg: Plan: as above, OR planned for tomorrow. NPO at midnight Plan NPO at midnight for OR for I&D tomorrow with Dr Dawkins Monitor cx, ID consulted and following Labs in AM Admission and Anticipated Discharge Date Admission Date: March 26, 2023 Subjective eval this morning, seen in conjunction w/ wound RN to assess wound. Discussed w/ patient discussed w/ surgery based on imaging and we are planning for I&D tomorrow. ID consulted this morning -- patient reporting having seen them. Reports not having been on abx but reporting subjective fevers at home, possble low grade fever but unsure temp. Reporting increased swelling/pain and foul brown drainage from his wound when vac removed yesterday by visiting nurse. Questions/concerns addressed at this time. Physical Exam Physical Exam: Constitutional:WD chronically ill appearing male sitting up in bed, NAD HEENT; head normocephalic, atraumatic, mmm, trachea midline Resp: CTA, no w/c/r, on room air CV: bradycardic, no significant m/r/g, edema to affected leg as below, pulses diminished but palpable, calves supple GI: +BS, soft/NT : no collado MSK/Neuro: no focal deficit/slurred speech LLE with dressing removed, large open wound, granulation tissue present however increased ecchymosis and fluctuant pocket proximal to wound, tender to palpation, surrounding erythema but within markings, purulant drainage noted at proximal wound Psych: AOx3, cooperative with exam Results & Data Results & Data Vital Signs (Past 12 Hours) Vital Signs Temp Pulse Resp BP Pulse Ox O2 Del Method 03/27/23 08:18 Room Air 03/27/23 07:23 36.5 C 50 L 18 123/74 96 Room Air 03/26/23 21:10 Room Air 03/26/23 21:10 36.5 C 50 L 16 135/79 96 Room Air Laboratory Results 03/27/23 03/27/23 03/27/23 Range/Units 05:58 05:58 05:58 WBC 3.97 L (4.8-10.8) K/ul RBC 3.52 L (4.70-6.10) M/uL Hgb 9.5 L (14.0-18.0) g/dl Hct 29.8 L (42.0-52.0) % MCV 84.7 (80.0-100.0) fL MCH 27.0 (25.0-34.0) pg MCHC 31.9 L (32.0-36.0) g/dL RDW Std Deviation 42.9 (36.4-46.3) fL RDW Coeff of [place] 13.9 (11.5-14.5) % Plt Count 179 (130-400) K/uL MPV 11.3 (9.4-12.4) fL Immature Gran % (Auto) 0.5 % Neut % (Auto) 60.6 % Lymph % (Auto) 27.7 % [place] % (Auto) 7.6 % Eos % (Auto) 3.3 % Baso % (Auto) 0.3 % Neut # (Auto) 2.41 (1.40-6.50) K/uL Lymph # (Auto) 1.10 L (1.2-3.4) K/uL [place]aston # (Auto) 0.30 (0.11-0.59) K/uL Eos # (Auto) 0.13 (0-0.50) K/uL Baso # (Auto) 0.01 (0-0.2) K/uL Immature Gran # (Auto) 0.02 (0.01-0.20) K/uL ESR 29 H (0-20) mm/hr Sodium 140 (136-145) mmol/L Potassium 3.5 (3.5-5.1) mmol/L Chloride 112 H (98-107) mmol/L Carbon Dioxide 21 (21-32) mmol/L Anion Gap 7 (3-11) BUN 11 (6-23) mg/dl Creatinine 0.83 (0.6-1.4) mg/dl Est Cr Clr Drug Dosing 125.8 ml/min Est GFR ( Amer) 114.8 ml/min Est GFR (Non-Af Amer) 99.1 ml/min BUN/Creatinine Ratio 13.3 (10-20) Glucose 116 H (70-99(Fasting)) mg/dl Lactate (0.4-2.0) mmol/L Calcium 8.1 L (8.6-10.3) mg/dl Magnesium (1.7-2.4) mg/dl Total Bilirubin 0.2 (0.2-1.0) mg/dl Direct Bilirubin (0-0.2) mg/dl AST 29 (13-39) U/L ALT 25 (7-52) U/L Alkaline Phosphatase 166 H (34-104) U/L C-Reactive Protein 3.00 H (0-0.5) mg/dl Total Protein 6.0 (6.0-8.3) gm/dl Albumin 3.2 L (3.4-5.0) gm/dl Globulin 2.8 (2.5-4.0) gm/dl Albumin/Globulin Ratio 1.1 (0.9-2) Procalcitonin (0-0.5) ng/ml Urine Color Urine Appearance (Clear) Urine pH (4.5-7.5) Ur Specific [place] (1.000-1.030) Urine Protein (Negative) Urine Glucose (UA) (Negative) Urine Ketones (Negative) Urine Blood (Negative) Urine Nitrite (Negative) Urine Bilirubin (Negative) Urine Urobilinogen (Negative) Ur Leukocyte Esterase (Negative) Urine WBC (Auto) (0-5) /hpf Urine RBC (Auto) (0-4) /hpf U Hyaline Cast (Auto) (0-5) /lpf U Epithel Cells (Auto) (0-5) /lpf Urine Bacteria (Auto) (Negative) Nasal Screen MRSA (PCR) (Negative) SARS-CoV-2, RNA, NAAT (NEGATIVE) 03/26/23 03/26/23 03/26/23 Range/Units 21:40 19:26 19:03 WBC (4.8-10.8) K/ul RBC (4.70-6.10) M/uL Hgb (14.0-18.0) g/dl Hct (42.0-52.0) % MCV (80.0-100.0) fL MCH (25.0-34.0) pg MCHC (32.0-36.0) g/dL RDW Std Deviation (36.4-46.3) fL RDW Coeff of [place]re[place] (11.5-14.5) % Plt Count (130-400) K/uL MPV (9.4-12.4) fL Immature Gran % (Auto) % Neut % (Auto) % Lymph % (Auto) % [place]aston % (Auto) % Eos % (Auto) % Baso % (Auto) % Neut # (Auto) (1.40-6.50) K/uL Lymph # (Auto) (1.2-3.4) K/uL Gaston # (Auto) (0.11-0.59) K/uL Eos # (Auto) (0-0.50) K/uL Baso # (Auto) (0-0.2) K/uL Immature Gran # (Auto) (0.01-0.20) K/uL ESR (0-20) mm/hr Sodium (136-145) mmol/L Potassium (3.5-5.1) mmol/L Chloride (98-107) mmol/L Carbon Dioxide (21-32) mmol/L Anion Gap (3-11) BUN (6-23) mg/dl Creatinine (0.6-1.4) mg/dl Est Cr Clr Drug Dosing ml/min Est GFR ( Amer) ml/min Est GFR (Non-Af Amer) ml/min BUN/Creatinine Ratio (10-20) Glucose (70-99(Fasting)) mg/dl Lactate (0.4-2.0) mmol/L Calcium (8.6-10.3) mg/dl Magnesium (1.7-2.4) mg/dl Total Bilirubin (0.2-1.0) mg/dl Direct Bilirubin (0-0.2) mg/dl AST (13-39) U/L ALT (7-52) U/L Alkaline Phosphatase (34-104) U/L C-Reactive Protein (0-0.5) mg/dl Total Protein (6.0-8.3) gm/dl Albumin (3.4-5.0) gm/dl Globulin (2.5-4.0) gm/dl Albumin/Globulin Ratio (0.9-2) Procalcitonin (0-0.5) ng/ml Urine Color Yellow Urine Appearance Clear (Clear) Urine pH 5.5 (4.5-7.5) Ur Specific [place] > 1.045 H (1.000-1.030) Urine Protein 1+ H (Negative) Urine Glucose (UA) Negative (Negative) Urine Ketones Negative (Negative) Urine Blood Negative (Negative) Urine Nitrite Negative (Negative) Urine Bilirubin Negative (Negative) Urine Urobilinogen Negative (Negative) Ur Leukocyte Esterase Negative (Negative) Urine WBC (Auto) 1-5 (0-5) /hpf Urine RBC (Auto) 0-4 (0-4) /hpf U Hyaline Cast (Auto) 1-5 (0-5) /lpf U Epithel Cells (Auto) 0-5 (0-5) /lpf Urine Bacteria (Auto) Negative (Negative) Nasal Screen MRSA (PCR) Negative (Negative) SARS-CoV-2, RNA, NAAT NEGATIVE (NEGATIVE) 03/26/23 03/26/23 03/26/23 Range/Units 15:34 15:34 15:34 WBC (4.8-10.8) K/ul RBC (4.70-6.10) M/uL Hgb (14.0-18.0) g/dl Hct (42.0-52.0) % MCV (80.0-100.0) fL MCH (25.0-34.0) pg MCHC (32.0-36.0) g/dL RDW Std Deviation (36.4-46.3) fL RDW Coeff of [place]re[place] (11.5-14.5) % Plt Count (130-400) K/uL MPV (9.4-12.4) fL Immature Gran % (Auto) % Neut % (Auto) % Lymph % (Auto) % Gaston % (Auto) % Eos % (Auto) % Baso % (Auto) % Neut # (Auto) (1.40-6.50) K/uL Lymph # (Auto) (1.2-3.4) K/uL Gaston # (Auto) (0.11-0.59) K/uL Eos # (Auto) (0-0.50) K/uL Baso # (Auto) (0-0.2) K/uL Immature Gran # (Auto) (0.01-0.20) K/uL ESR 50 H (0-20) mm/hr Sodium (136-145) mmol/L Potassium (3.5-5.1) mmol/L Chloride (98-107) mmol/L Carbon Dioxide (21-32) mmol/L Anion Gap (3-11) BUN (6-23) mg/dl Creatinine (0.6-1.4) mg/dl Est Cr Clr Drug Dosing ml/min Est GFR ( Amer) ml/min Est GFR (Non-Af Amer) ml/min BUN/Creatinine Ratio (10-20) Glucose (70-99(Fasting)) mg/dl Lactate 1.3 (0.4-2.0) mmol/L Calcium (8.6-10.3) mg/dl Magnesium (1.7-2.4) mg/dl Total Bilirubin (0.2-1.0) mg/dl Direct Bilirubin (0-0.2) mg/dl AST (13-39) U/L ALT (7-52) U/L Alkaline Phosphatase (34-104) U/L C-Reactive Protein (0-0.5) mg/dl Total Protein (6.0-8.3) gm/dl Albumin (3.4-5.0) gm/dl Globulin (2.5-4.0) gm/dl Albumin/Globulin Ratio (0.9-2) Procalcitonin 0.10 (0-0.5) ng/ml Urine Color Urine Appearance (Clear) Urine pH (4.5-7.5) Ur Specific [place] (1.000-1.030) Urine Protein (Negative) Urine Glucose (UA) (Negative) Urine Ketones (Negative) Urine Blood (Negative) Urine Nitrite (Negative) Urine Bilirubin (Negative) Urine Urobilinogen (Negative) Ur Leukocyte Esterase (Negative) Urine WBC (Auto) (0-5) /hpf Urine RBC (Auto) (0-4) /hpf U Hyaline Cast (Auto) (0-5) /lpf U Epithel Cells (Auto) (0-5) /lpf Urine Bacteria (Auto) (Negative) Nasal Screen MRSA (PCR) (Negative) SARS-CoV-2, RNA, NAAT (NEGATIVE) 03/26/23 03/26/23 Range/Units 15:34 15:34 WBC 5.53 (4.8-10.8) K/ul RBC 4.36 L (4.70-6.10) M/uL Hgb 11.6 L (14.0-18.0) g/dl Hct 36.7 L (42.0-52.0) % MCV 84.2 (80.0-100.0) fL MCH 26.6 (25.0-34.0) pg MCHC 31.6 L (32.0-36.0) g/dL RDW Std Deviation 42.1 (36.4-46.3) fL RDW Coeff of [place] 13.6 (11.5-14.5) % Plt Count 221 (130-400) K/uL MPV 11.5 (9.4-12.4) fL Immature Gran % (Auto) 0.5 % Neut % (Auto) 60.0 % Lymph % (Auto) 30.0 % [place] % (Auto) 6.5 % Eos % (Auto) 2.5 % Baso % (Auto) 0.5 % Neut # (Auto) 3.31 (1.40-6.50) K/uL Lymph # (Auto) 1.66 (1.2-3.4) K/uL [place] # (Auto) 0.36 (0.11-0.59) K/uL Eos # (Auto) 0.14 (0-0.50) K/uL Baso # (Auto) 0.03 (0-0.2) K/uL Immature Gran # (Auto) 0.03 (0.01-0.20) K/uL ESR (0-20) mm/hr Sodium 140 (136-145) mmol/L Potassium 4.0 (3.5-5.1) mmol/L Chloride 110 H (98-107) mmol/L Carbon Dioxide 24 (21-32) mmol/L Anion Gap 6 (3-11) BUN 15 (6-23) mg/dl Creatinine 0.72 (0.6-1.4) mg/dl Est Cr Clr Drug Dosing 144.5 ml/min Est GFR ( Amer) 121.7 ml/min Est GFR (Non-Af Amer) 105.0 ml/min BUN/Creatinine Ratio 20.8 H (10-20) Glucose 109 H (70-99(Fasting)) mg/dl Lactate (0.4-2.0) mmol/L Calcium 8.9 (8.6-10.3) mg/dl Magnesium 1.9 (1.7-2.4) mg/dl Total Bilirubin 0.5 (0.2-1.0) mg/dl Direct Bilirubin 0.2 (0-0.2) mg/dl AST 51 H (13-39) U/L ALT 21 (7-52) U/L Alkaline Phosphatase 128 H (34-104) U/L C-Reactive Protein 5.77 H (0-0.5) mg/dl Total Protein 7.4 (6.0-8.3) gm/dl Albumin 3.9 (3.4-5.0) gm/dl Globulin (2.5-4.0) gm/dl Albumin/Globulin Ratio (0.9-2) Procalcitonin (0-0.5) ng/ml Urine Color Urine Appearance (Clear) Urine pH (4.5-7.5) Ur Specific [place] (1.000-1.030) Urine Protein (Negative) Urine Glucose (UA) (Negative) Urine Ketones (Negative) Urine Blood (Negative) Urine Nitrite (Negative) Urine Bilirubin (Negative) Urine Urobilinogen (Negative) Ur Leukocyte Esterase (Negative) Urine WBC (Auto) (0-5) /hpf Urine RBC (Auto) (0-4) /hpf U Hyaline Cast (Auto) (0-5) /lpf U Epithel Cells (Auto) (0-5) /lpf Urine Bacteria (Auto) (Negative) Nasal Screen MRSA (PCR) (Negative) SARS-CoV-2, RNA, NAAT (NEGATIVE) Diagnostic Findings Lower Extremity CT 03/26/23 14:17 CT OF THE LEFT TIBIA AND FIBULA WITH CONTRAST CLINICAL HISTORY: Left lower leg wound. EVALUATE ABSCESS, NECROTIZING FASCITIS COMPARISON STUDY: CT of the left tibia and fibula March 06, 2023. TECHNIQUE: Axial images of the left tibia and fibula and lower leg were obtained following intravenous injection of 92 cc of Optiray 320 IV. Sagittal and coronal reconstructions were viewed. Automated exposure control was utilized for the study. A dose lowering technique was utilized adhering to the principles of ALARA. FINDINGS: No fracture within the left tibia or fibula is noted. There is no evidence for acute osteomyelitis within the left tibia or fibula by CT. There is no left knee joint effusion. Subcutaneous edema of the left lower leg is again noted. There is skin thickening of the medial left lower leg with an associated wound. The large fluid collection within the medial left lower leg on CT of March 06, 2023 has nearly completely resolved. There is a small residual fluid and gas containing collection which measure 6 x 0.7 cm. The soft tissue gas extends toward the wound. The gas extends superiorly to the level of the proximal left tibia. No additional sites of soft tissue gas are present. There is no fascial fluid. No new fluid collections are present. IMPRESSION: 1. No evidence for acute osteomyelitis within the left tibia or fibula. Persistent left lower leg subcutaneous fluid and skin thickening. This could ref lect edema or cellulitis. 2. Medial left lower leg wound with near complete resolution of associated fluid collection shown on CT of March 06, 2023. Small residual fluid and gas containing collection. The subcutaneous gas is likely related to the open wound. A gas- forming infectious process is considered less likely but could have a similar imaging appearance. ACT 112: Negative or not required by law. Electronically signed by: Dwight Hercules M.D. 03/26/2023 5:57 PM PG Care Time/CCT Total # of Minutes Spent Total Time Spent with Patient: Total time spent is greater than 50% in coordination of care (as documented) at patient's floor/unit and/or counseling patient: Coding Level of Care Code 44609 SUB INP/OBS CARE 3/50MIN Diagnoses Wound of left leg S81.802A Cellulitis of leg without foot, left L03.116 Human immunodeficiency virus (HIV) disease B20 Bipolar 1 disorder F31.9 Generalized anxiety disorder F41.1 Peripheral neuropathy G62.9 Restless leg syndrome G25.81 Essential tremor G25.0 Sleep apnea G47.30 Lower back pain M54.5 Dyskinesia of mouth G24.4 Traumatic hematoma of left lower leg S80.12XA
[2023-03-27] MEDS ORDERED: PIPERACILLIN/TAZOBACTAM 4.5 GM (over 30 mins) IV ONE (09:45)
--- NOTE | 2023-03-27 09:51 | Infectious Disease Consult ---
Date of Consultation March 27, 2023 Assessment & Plan (1) Wound cellulitis: (2) Wound of left leg: (3) Human immunodeficiency virus (HIV) disease: Plan 57 yo M with history of HIV (on Biktarvy, VL UD, CD4 450 in 07/2022), RLS, peripheral neuropathy, dyskinesia, anxiety, bipolar disorder, LLE hematoma after traumatic injury ~1 month ago with c/f necrotic hematoma s/p I&D at [facility] on 03/08 and 03/11 and placement of wound vac, who presented on 03/26 with worsening LLE wound, found to have SSTI. Pt was admitted to [facility] from 03/07-03/19. He did not have signs of infection, and was managed without antibiotics. No antibiotics prescribed on discharge. Home health advised pt to present to ED due to LLE worsening, with increased pain, brown discharge with foul smell. On presentation, VSS without leukocytosis, ESR 50, CRP 5.77, procal 0.10. MRSA nares negative. CT LLE with contrast showed no acute osteomyelitis, persistent L lower leg subcutaneous fluid and skin thickening which could reflect edema or cellulitis, and medial L lower leg wound with near complete resolution of associated fluid collection seen on prior CT 03/06, with small residual fluid and gas containing collection--subcutaneous gas likely related to open wound; gas- forming infectious process less likely but could have similar imaging appearance. BCx collected. A swab of LLE wound was taken, which is currently growing Staph species. Pt was started on vanc, pip-tazo. Pt reportedly has a history of MRSA skin infections in the past when he was in [place]. I called over to [facility] micro lab, and no cultures were sent during the pt's recent hospitalization. Micro: 03/26 LLE swab cx: Staph species. GS--GPCs, GNRs 03/26 BCx x2: pending 03/06 L leg wound cx: E coli (S amox/clav, cefaz, ceftriaxone, pip-tazo. I amp/sul. R amp, cipro, levo, TMP/SMX), Bacteroides fragilis, Peptostreptococcus, Clostridium perfringens 03/06 L ankle wound cx: Enterobacter cloacae (S cefepime, ceftriaxone, pip-tazo. R cipro, levo, TMP/SMX), MSSA Abx: Vanc 03/26 - Pip-tazo 03/26, 03/27 - Amp-sulbactam 03/26-03/27 Problems: #LLE wound c/b SSTI #HIV: well-controlled on Biktarvy #Reported history of MRSA skin infections Recommendations: -Follow-up 03/26 LLE swab culture, MRSA nares -Please send tissue from the OR for routine, anaerobic, fungal, and AFB cultures -Can continue vanc for now -Discontinued pip-tazo, and instead started cefepime and metronidazole. This is because prior LLE wound culture from 03/06 grew Enterobacter cloacae, which has higher risk of AmpC production--therefore, cefepime is preferred over pip-tazo. Also prefer to avoid amp-sulbactam at this time, as prior LLE culture grew E coli intermediate to this. -Continue home Biktarvy for HIV Will continue to follow Please page [facility] with further questions. Consultation Information Consultation was provided via telemedicine using two-way real-time interactive telecommunication between the patient and the telemedicine provider. For the duration of the visit, the provider was performing the assessment from a different facility than the patient. This includesuse of bluetooth stethoscope forauscultationperformed by the telepresenter that the telemedicine provider can hear if described in the physical exam. Engineering Teacher contact information: Please call [facility] . (Phone Number For Physician Use Only) After establishing a telemedicine visit, patient was: Patient was verified with two unique identifiers, Patient/authorized rep acknowledged consent and understanding and Gave permission to continue telehealth session Time Spent with Patient: Initial => 55 min History of Present Illness Reason for Consultation: LLE infection Attending Physician: Suresh Coronado History of Present Illness 57 yo M with history of HIV (on Biktarvy, VL UD, CD4 450 in 07/2022), RLS, peripheral neuropathy, dyskinesia, anxiety, bipolar disorder, LLE hematoma after traumatic injury ~1 month ago c/b infection s/p I&D at [facility] on 03/08 and 03/11 and placement of wound vac. Pt was discharged on 03/19. Per discharge summary, he was managed for c/f necrotic hematoma, and he did not show any signs of infection such as fever, leukocytosis, so he was managed without antibiotics and was not prescribed antibiotics on discharge. He was discharged with home health, who sent the pt to the ED on 03/26 due to worsening LLE wound. Pt reports increased LLE pain, and also brown discharge with foul smell. On presentation, pt was afebrile, VSS. Labs showed WBC 5.53, ESR 50, CRP 5.77, procal 0.10. MRSA nares negative. CT LLE with contrast showed no acute osteomyelitis, persistent L lower leg subcutaneous fluid and skin thickening which could reflect edema or cellulitis, and medial L lower leg wound with near complete resolution of associated fluid collection seen on prior CT 03/06, with small residual fluid and gas containing collection--subcutaneous gas likely related to open wound; gas-forming infectious process less likely but could have similar imaging appearance. BCx collected. A swab of LLE wound was taken, which is currently growing Staph species. Pt was started on vanc, pip-tazo. Pt reportedly has a history of MRSA skin infections in the past when he was in [place]. Allergies Allergy/AdvReac Type Severity Reaction Status Date / Time mercury (elemental) Allergy Intermediate Facial Verified 03/26/23 16:59 swelling, Nausea/Vomiting strawberry Allergy Intermediate rash Verified 03/26/23 16:59 shrimp AdvReac Intermediate ALL Verified 03/26/23 16:59 SEAFOOD D/T MERCURY RELATED. doxepin AdvReac Unknown CAN'T Verified 03/26/23 16:59 REMEMBER TOO LONG AGO Home Medications Medication Instructions Recorded Confirmed Type celecoxib 100 mg capsule 100 mg PO QAM 05/02/19 03/26/23 History lithium carbonate 300 mg capsule See Rx Instructions .Route .COMPLEX 05/02/19 03/26/23 History acetaminophen 500 mg tablet 500 mg PO Q6H PRN Pain 10/25/19 03/26/23 History (Acetaminophen Extra Strength) bictegravir 50 mg-emtricitabine 1 tab PO QAM #30 tabs 01/12/20 03/26/23 Rx 200 mg-tenofovir alafenam 25 mg tablet (Biktarvy) hydrocortisone 2.5 % topical cream 1 applic topical DAILY PRN SKIN 11/15/21 03/26/23 History IRRITATION NEEDED hydroxyzine HCl 25 mg tablet 25 mg PO DIRECTED PRN NEEDED 01/06/22 03/26/23 History sertraline 25 mg tablet (Zoloft) 200 mg PO DAILY 05/03/22 03/26/23 History deutetrabenazine 12 mg tablet 12 mg PO BID 05/18/22 03/26/23 History (Austedo) ketoconazole 2 % shampoo 1 applic topical .COMPLEX #120 mL 05/18/22 03/26/23 Rx hydrochlorothiazide 25 mg tablet 25 mg PO QAM PRN Fluid Retention 05/30/22 03/26/23 Rx #90 tabs pregabalin 300 mg capsule 300 mg PO BID 30 days #60 caps 10/23/22 03/26/23 Rx cyanocobalamin (vitamin B-12) 1,000 mcg sublingual QAM #90 tabs 11/02/22 03/26/23 Rx 1,000 mcg sublingual tablet methocarbamol 750 mg tablet 750 mg PO TID PRN MUSCLE SPASMS 12/24/22 03/26/23 History ropinirole 3 mg tablet 3 mg PO QPM #30 tabs 12/29/22 03/26/23 Rx cholecalciferol (vitamin D3) 125 125 mcg PO DAILY #90 caps 01/08/23 03/26/23 Rx mcg (5,000 unit) capsule tamsulosin 0.4 mg capsule 0.4 mg PO DAILY #90 caps 01/23/23 03/26/23 Rx ketoconazole 2 % topical cream 1 applic topical DAILY #30 grams 01/30/23 03/26/23 Rx cariprazine 1.5 mg capsule 1.5 mg PO DAILY #30 caps 01/31/23 03/26/23 Rx (Vraylar) propranolol 20 mg tablet 20 mg PO BID #60 tabs 02/07/23 03/26/23 Rx benztropine 0.5 mg tablet 0.5 mg PO BID #60 tabs 02/14/23 03/26/23 Rx iron,carbonyl 65 mg-vitamin C 125 1 tab PO DAILY RLS #60 tabs 02/15/23 03/26/23 Rx mg tablet,delayed release (Vitron-C) sumatriptan succinate 100 mg 100 mg PO .COMPLEX PRN migraine 03/01/23 03/26/23 Rx tablet (Imitrex) headache 30 days #9 tabs diphenoxylate-atropine 2.5 1 tab PO TID PRN diarrhea #90 tabs 03/07/23 03/26/23 Rx mg-0.025 mg tablet (Lomotil) loperamide 2 mg capsule 2 mg PO TID PRN Diarrhea 03/26/23 03/26/23 History Patient History Medical History Bipolar 1 disorder Bipolar disorder Cervical pain Epididymitis Esophageal reflux Family history of melanoma Generalized anxiety disorder Human immunodeficiency virus (HIV) disease Dx around 2001 - 2002 Inguinal lymphadenitis Kidney stones Left knee sprain Leg swelling Lumbar pain Nodule of groin Obesity Peripheral neuropathy Restless leg syndrome Spondylosis of cervical region without myelopathy or radiculopathy Thoracic back pain Vitamin B12 deficiency Vitamin D deficiency disease Surgical History S/P cholecystectomy S/P gastric surgery Status post gastric bypass for obesity Family History Mother Diabetes Systemic lupus erythematosus Father Melanoma Myocardial infarction Prostate cancer Other Ulcerative colitis Denies family history of Ovarian cancer Crohn's disease Breast cancer Colorectal cancer Irritable bowel syndrome Social History Smoking Status: Never smoker Do You Dip or Chew Tobacco: No; Hx Alcohol Use: No Hx Substance Use: No Preferred Language: Arabic Communication Ability: Effective Visual Impairment: No Limitations Hearing Ability: Normal Cad Specialist Required: No Beliefs That Will Affect Care: None marital status: Current Living Situation: Spouse and Family Current Living Situation Comment: lives with spouse and in-laws in 2 story home current occupational status: disabled Other Information That Helps Us Care for You: No Feels Safe at Home: Yes Safety Concerns: Feels Safe At This Time Dental Care, Regularly: Yes Physical Activity Frequency: Daily Seatbelt Use: always Sunscreen Use: No Assistive Devices: CPAP and Glasses Review of System A complete ROS was performed and is negative except as mentioned in the HPI. Physical Exam Physical Exam: GEN: Well-appearing, in NAD. RESP: No increased work of breathing EXT: LLE edema SKIN: Large open wound on L ramos with brown drainage from proximal area. Surrounding erythema with marked border NEURO: Alert and oriented. Answers all questions appropriately. Speech not slurred. PSYCH: Normal mood, affect appropriate. Results & Data Vital Signs (Past 12 Hours) Vital Signs Temp Pulse Resp BP Pulse Ox O2 Del Method 03/27/23 08:18 Room Air 03/27/23 07: 36.5 C 50 L 18 123/74 96 Room Air Laboratory Results Short CBC 03/26/23 03/27/23 Range/Units 15:34 05:58 WBC 5.53 3.97 L (4.8-10.8) K/ul Hgb 11.6 L 9.5 L (14.0-18.0) g/dl Hct 36.7 L 29.8 L (42.0-52.0) % Plt Count 221 179 (130-400) K/uL BMP 03/26/23 03/27/23 15:34 05:58 Sodium 140 140 Potassium 4.0 3.5 Chloride 110 H 112 H Carbon Dioxide 24 21 BUN 15 11 Creatinine 0.72 0.83 Glucose 109 H 116 H Calcium 8.9 8.1 L Liver Function 03/26/23 03/27/23 Range/Units 15:34 05:58 Total Bilirubin 0.5 0.2 (0.2-1.0) mg/dl Direct Bilirubin 0.2 (0-0.2) mg/dl AST 51 H 29 (13-39) U/L ALT 21 25 (7-52) U/L Alkaline Phosphatase 128 H 166 H (34-104) U/L Albumin 3.9 3.2 L (3.4-5.0) gm/dl Urine 03/26/23 Range/Units 21:40 Urine Color Yellow Urine Appearance Clear (Clear) Urine pH 5.5 (4.5-7.5) Ur Specific [place] > 1.045 H (1.000-1.030) Urine Protein 1+ H (Negative) Urine Glucose (UA) Negative (Negative) Diagnostic Findings Lower Extremity CT 03/26/23 14:17 CT OF THE LEFT TIBIA AND FIBULA WITH CONTRAST CLINICAL HISTORY: Left lower leg wound. EVALUATE ABSCESS, NECROTIZING FASCITIS COMPARISON STUDY: CT of the left tibia and fibula March 06, 2023. TECHNIQUE: Axial images of the left tibia and fibula and lower leg were obtained following intravenous injection of 92 cc of Optiray 320 IV. Sagittal and coronal reconstructions were viewed. Automated exposure control was utilized for the study. A dose lowering technique was utilized adhering to the principles of ALARA. FINDINGS: No fracture within the left tibia or fibula is noted. There is no evidence for acute osteomyelitis within the left tibia or fibula by CT. There is no left knee joint effusion. Subcutaneous edema of the left lower leg is again noted. There is skin thickening of the medial left lower leg with an associated wound. The large fluid collection within the medial left lower leg on CT of March 06, 2023 has nearly completely resolved. There is a small residual fluid and gas containing collection which measure 6 x 0.7 cm. The soft tissue gas extends toward the wound. The gas extends superiorly to the level of the proximal left tibia. No additional sites of soft tissue gas are present. There is no fascial fluid. No new fluid collections are present. IMPRESSION: 1. No evidence for acute osteomyelitis within the left tibia or fibula. Persistent left lower leg subcutaneous fluid and skin thickening. This could reflect edema or cellulitis. 2. Medial left lower leg wound with near complete resolution of associated fluid collection shown on CT of March 06, 2023. Small residual fluid and gas containing collection. The subcutaneous gas is likely related to the open wound. A gas- forming infectious process is considered less likely but could have a similar imaging appearance. ACT 112: Negative or not required by law. Electronically signed by: Dwight Hercules M.D. 03/26/2023 5:57 PM Medications Administered Current Inpatient Medications Acetaminophen (Acetaminophen 325 Mg Tab) 650 mg PO Q4H PRN PRN Reason: Pain or Fever Stop: 04/25/23 21:18 Benztropine Mesylate (Benztropine Mesylate 0.5 Mg Tab) 0.5 mg PO BID MARJAN Stop: 04/25/23 21:18 Last Admin: 03/27/23 08:00 Dose: 0.5 mg Celecoxib (Celecoxib 100 Mg Cap) 100 mg PO QAM MARJAN Stop: 04/26/23 08:59 Last Admin: 03/27/23 08:01 Dose: Not Given Enoxaparin Sodium (Enoxaparin Inj 40 Mg/0.4 Ml Syr) 40 mg SQ Q24H MARJAN Stop: 04/25/23 21:59 Last Admin: 03/26/23 22:13 Dose: 40 mg Vancomycin HCl 1,500 mg/ (Sodium Chloride) 530 mls @ 200 mls/hr IV Q12H MARJAN Stop: 04/03/23 05:59 Last Infusion: 03/27/23 07:54 Dose: Infused Piperacillin Sod/Tazobactam (Sod 4.5 gm/ Dextrose) 120 mls @ 240 mls/hr IV NOW ONE; Protocol Stop: 03/27/23 10:14 Piperacillin Sod/Tazobactam (Sod 4.5 gm/ Dextrose) 120 mls @ 30 mls/hr IV Q8H [facility]; Protocol Stop: 04/03/23 15:59 [place] Carbonate ([place] Carbonate 300 Mg Tab) 300 mg PO QAM MARJAN Stop: 04/26/23 08:59 Last Admin: 03/27/23 08:00 Dose: 300 mg [place] Carbonate ([place] Carbonate 300 Mg Tab) 600 mg PO PM MARJAN Stop: 04/25/23 21:18 Last Admin: 03/26/23 22:12 Dose: 600 mg Miscellaneous (Austedo - Order Awaiting Action) 1 each N/A QS [facility] Stop: 04/25/23 21:18 Last Admin: 03/27/23 07:54 Dose: Not Given Miscellaneous (Biktarvy - Order Awaiting Action) 1 each N/A QS [facility] Stop: 04/26/23 00:00 Last Admin: 03/27/23 07:54 Dose: Not Given Miscellaneous (Vraylar - Order Awaiting Action) 1 each N/A QS [facility] Stop: 04/26/23 00:00 Last Admin: 03/27/23 07:54 Dose: Not Given Miscellaneous Information (Vancomycin Consult Active) 1 each N/A UD PRN PRN Reason: Consult Stop: 04/25/23 19:58 Ondansetron HCl (Ondansetron 4 Mg Od Tab) 4 mg PO Q6H PRN PRN Reason: Nausea Stop: 04/25/23 21:18 Polyethylene Glycol (Polyethylene (Miralax) 17 Gm Pack) 17 gm PO DAILY PRN PRN Reason: Constipation Stop: 04/25/23 21:18 Pregabalin (Pregabalin 150 Mg Cap) 300 mg PO BID [facility] Stop: 04/25/23 21:18 Last Admin: 03/27/23 08:00 Dose: 300 mg Ropinirole HCl (Ropinirole Hcl 1 Mg Tablet) 3 mg PO QPM MARJAN Stop: 04/25/23 21:18 Last Admin: 03/26/23 22:11 Dose: 3 mg Sertraline HCl (Sertraline Hcl 100 Mg Tablet) 200 mg PO DAILY MARJAN Stop: 04/26/23 08:59 Last Admin: 03/27/23 08:00 Dose: 200 mg Tamsulosin HCl (Tamsulosin Hcl 0.4 Mg Cap) 0.4 mg PO DAILY MARJAN Stop: 04/26/23 08:59 Last Admin: 03/27/23 08:00 Dose: 0.4 mg
--- NOTE | 2023-03-27 10:04 | Pharmacy Report ---
Pharmacy PK ABX Note - Date of Service March 27, 2023 - Assessment and Plan Assessment 57 year old M receiving vancomycin/Zosyn for treatment of LLE cellulitis. Pertinent microbiologic data includes: NEGATIVE MRSA Nasal Swab, leg culture growing staph species. Day # 1 of antimicrobial therapy. Patient recently seen in ER on 03/06/23 with wound cultures growing Enterobacter cloacae, MSSA (in the L ankle culture) and E coli (R to FQs, bactrim, I to Unasyn), Bacteroides, Peptostreptococcus, and Clostridium perfinges Plan Vancomycin * Loading dose: 2250 mg IV x 1 * Maintenance dose: 1500 mg IV every 12 hours * Regimen is predicted to achieve target AUC/OBEY of 400-600 mg/L.hr * Trough level ordered for: 03/28/23 Pharmacy will continue to follow and will adjust dose/frequency as necessary. Thank you. Pharmacy has transitioned to AUC monitoring for vancomycin. AUC/OBEY is the preferred PK/PD target and is associated with decreased risk of nephrotoxicity compared to traditional trough targets.
--- NOTE | 2023-03-27 10:52 | Surgery Consultation ---
Date of Consultation March 27, 2023 Assessment & Plan (1) Cellulitis of leg without foot, left: CT images and results were personally viewed and interpreted by myself He has an open wound looks relatively healthy however at the more proximal portion of the wound there is purulent fluid oozing out which corresponds to the fluid collection seen on CT Plan will be to take in the operating room tomorrow and perform incision and drainage and debridement of his wound in order to fully drain the area Made n.p.o. after midnight (2) Wound of left leg: History of Present Illness Reason for Consultation: Left lower extremity wound/infection Attending Physician: Suresh Coronado History of Present Illness Is a 57-year-old male who was admitted yesterday with left lower extremity wound deterioration. We have been consulted for possible debridement and drainage of the infected wound. Patient states about a month ago he got his leg caught while trying to get up and developed a leg hematoma. He then developed skin necrosis and was taken to [facility] where they did a incision and debridement of his left lower extremity wound on 03/08 and then again on 03/11. He had a wound VAC on when he was discharged little over a week ago and was doing well. His home health nurse noticed some purulent fluid coming from the proximal portion of his wound and had him go to the ER for this. He denies any fevers or chills. He does have pain at the proximal left leg medially where the fluid is oozing from. He is on any antibiotics on discharge. Allergies Allergy/AdvReac Type Severity Reaction Status Date / Time mercury (elemental) Allergy Intermediate Facial Verified 03/26/23 16:59 swelling, Nausea/Vomiting strawberry Allergy Intermediate rash Verified 03/26/23 16:59 shrimp AdvReac Intermediate ALL Verified 03/26/23 16:59 SEAFOOD D/T MERCURY RELATED. doxepin AdvReac Unknown CAN'T Verified 03/26/23 16:59 REMEMBER TOO LONG AGO Home Medications Medication Instructions Recorded Confirmed Type celecoxib 100 mg capsule 100 mg PO QAM 05/02/19 03/26/23 History lithium carbonate 300 mg capsule See Rx Instructions .Route .COMPLEX 05/02/19 03/26/23 History acetaminophen 500 mg tablet 500 mg PO Q6H PRN Pain 10/25/19 03/26/23 History (Acetaminophen Extra Strength) bictegravir 50 mg-emtricitabine 1 tab PO QAM #30 tabs 01/12/20 03/26/23 Rx 200 mg-tenofovir alafenam 25 mg tablet (Biktarvy) hydrocortisone 2.5 % topical cream 1 applic topical DAILY PRN SKIN 11/15/21 03/26/23 History IRRITATION NEEDED hydroxyzine HCl 25 mg tablet 25 mg PO DIRECTED PRN NEEDED 01/06/22 03/26/23 History sertraline 25 mg tablet (Zoloft) 200 mg PO DAILY 05/03/22 03/26/23 History deutetrabenazine 12 mg tablet 12 mg PO BID 05/18/22 03/26/23 History (Austedo) ketoconazole 2 % shampoo 1 applic topical .COMPLEX #120 mL 05/18/22 03/26/23 Rx hydrochlorothiazide 25 mg tablet 25 mg PO QAM PRN Fluid Retention 05/30/22 03/26/23 Rx #90 tabs pregabalin 300 mg capsule 300 mg PO BID 30 days #60 caps 10/23/22 03/26/23 Rx cyanocobalamin (vitamin B-12) 1,000 mcg sublingual QAM #90 tabs 11/02/22 03/26/23 Rx 1,000 mcg sublingual tablet methocarbamol 750 mg tablet 750 mg PO TID PRN MUSCLE SPASMS 12/24/22 03/26/23 History ropinirole 3 mg tablet 3 mg PO QPM #30 tabs 12/29/22 03/26/23 Rx cholecalciferol (vitamin D3) 125 125 mcg PO DAILY #90 caps 01/08/23 03/26/23 Rx mcg (5,000 unit) capsule tamsulosin 0.4 mg capsule 0.4 mg PO DAILY #90 caps 01/23/23 03/26/23 Rx ketoconazole 2 % topical cream 1 applic topical DAILY #30 grams 01/30/23 03/26/23 Rx cariprazine 1.5 mg capsule 1.5 mg PO DAILY #30 caps 01/31/23 03/26/23 Rx (Vraylar) propranolol 20 mg tablet 20 mg PO BID #60 tabs 02/07/23 03/26/23 Rx benztropine 0.5 mg tablet 0.5 mg PO BID #60 tabs 02/14/23 03/26/23 Rx iron,carbonyl 65 mg-vitamin C 125 1 tab PO DAILY RLS #60 tabs 02/15/23 03/26/23 Rx mg tablet,delayed release (Vitron-C) sumatriptan succinate 100 mg 100 mg PO .COMPLEX PRN migraine 03/01/23 03/26/23 Rx tablet (Imitrex) headache 30 days #9 tabs diphenoxylate-atropine 2.5 1 tab PO TID PRN diarrhea #90 tabs 03/07/23 03/26/23 Rx mg-0.025 mg tablet (Lomotil) loperamide 2 mg capsule 2 mg PO TID PRN Diarrhea 03/26/23 03/26/23 History Patient History Medical History Bipolar 1 disorder Bipolar disorder Cervical pain Epididymitis Esophageal reflux Family history of melanoma Generalized anxiety disorder Human immunodeficiency virus (HIV) disease Dx around 2001 - 2002 Inguinal lymphadenitis Kidney stones Left knee sprain Leg swelling Lumbar pain Nodule of groin Obesity Peripheral neuropathy Restless leg syndrome Spondylosis of cervical region without myelopathy or radiculopathy Thoracic back pain Vitamin B12 deficiency Vitamin D deficiency disease Surgical History S/P cholecystectomy S/P gastric surgery Status post gastric bypass for obesity Family History Mother Diabetes Systemic lupus erythematosus Father Melanoma Myocardial infarction Prostate cancer Other Ulcerative colitis Denies family history of Ovarian cancer Crohn's disease Breast cancer Colorectal cancer Irritable bowel syndrome Social History Smoking Status: Never smoker Do You Dip or Chew Tobacco: No; Hx Alcohol Use: No Hx Substance Use: No Preferred Language: German Communication Ability: Effective Visual Impairment: No Limitations Hearing Ability: Normal Instrument Setter Required: No Beliefs That Will Affect Care: None marital status: Current Living Situation: Spouse and Family Current Living Situation Comment: lives with spouse and in-laws in 2 story home current occupational status: disabled Other Information That Helps Us Care for You: No Feels Safe at Home: Yes Safety Concerns: Feels Safe At This Time Dental Care, Regularly: Yes Physical Activity Frequency: Daily Seatbelt Use: always Sunscreen Use: No Assistive Devices: CPAP and Glasses Review of Systems Constitutional: no fever and no chills Eyes: no tunnel vision and no worsening vision Ear, Nose, Mouth, Throat: no ear pain and no hearing loss Respiratory: no cough and no dyspnea Cardiovascular: no chest pain and no dyspnea on exertion Gastrointestinal: no abdominal pain, no nausea and no vomiting Genitourinary: no dysuria Musculoskeletal: no back pain and no neck pain Integumentary: + skin ulcer, + wounds and + erythema; no rash Neurologic: no headache(s) and no confusion Hematologic / Lymphatic: no easy bleeding and no easy bruising Physical Exam Constitutional: WD/WN, vitals as above Eyes: PERRL, conjunctivae normal, anicteric sclerae ENMT: external ear and nose normal, oropharynx normal Neck: trachea midline, no thyromegaly Respiratory: normal respiratory effort, lungs clear to auscultation Cardiovascular: RRR, no murmur, no edema Gastrointestinal (Abdomen): normal bowel sounds, soft, nontender, no hepatosp lenomegaly Musculoskeletal: no cyanosis or clubbing, extremities motor strength 5/5 Skin: no rashes, warm and dry Open wound on the medial portion of the left leg with purulent fluid oozing out of the proximal portion of the wound, erythema and tenderness to touch in this area Neurologic: PERRL, EOMI, accommodation nl, no face palsy, no dysarthria Psychiatric: A+Ox3, euthymic affect Results & Data Vital Signs (Past 12 Hours) Vital Signs Temp Pulse Resp BP Pulse Ox O2 Del Method 03/27/23 08:18 Room Air 03/27/23 07:23 36.5 C 50 L 18 123/74 96 Room Air PG Care Time/CCT Total # of Minutes Spent Total Time Spent with Patient: Total time spent is greater than 50% in coordination of care (as documented) at patient's floor/unit and/or counseling patient: Coding Level of Care Code 82873 IN/OBS CONSULT LVL 4,60M Diagnoses Cellulitis of leg without foot, left L03.116 Wound of left leg S81.808Z
[2023-03-27] MEDS: CEFEPIME 2,000 MG in SYRINGE 0 ML IV SCH ×2 (11:56→20:00)
[2023-03-27] MEDS: metroNIDAZOLE 500 MG TAB PO SCH ×2 (11:56→20:02)
--- NOTE | 2023-03-27 14:50 | Electrocardiogram Report ---
Test Reason : Blood Pressure : / mmHG Vent. Rate : 050 BPM Atrial Rate : 050 BPM P-R Int : 172 ms QRS Dur : 108 ms QT Int : 460 ms P-R-T Axes : 046 -15 005 degrees QTc Int : 419 ms Sinus bradycardia Otherwise normal ECG When compared with ECG of 06-MAR-2023 13:09, No significant change was found Confirmed by Sal Alcala ([id number]) on 03/27/2023 2:49:59 PM Referred By: REFERRED SELF Confirmed By:Sal Alcala
[2023-03-27] MEDS: EMTRICITABINE/TENOFOVIR TAB PO SCH (14:56)
[2023-03-27] MEDS: DOLUTEGRAVIR SODIUM 50 MG TAB PO SCH (14:56)
[2023-03-27] MEDS ORDERED: PIPERACILLIN/TAZOBACTAM 4.5 GM CI (over 4 hours) IV SCH (16:00)
[2023-03-27] MEDS: ENOXAPARIN INJ 40 MG/0.4 ML SYR SQ SCH (20:01)
[2023-03-27] MEDS: rOPINIRole HCL 1 MG TABLET PO SCH (20:02)
--- NOTE | 2023-03-27 20:18 | Anesthesiology Consultation ---
Date of Service March 27, 2023 Assessment & Plan Chart Review Chart Review: business administration teacher initiated History Surgery Operation Date: 03/28/23 07:30 Proposed Procedures p Incision and Drainage with Debridement of Left Lower Extremity - Rios Dawkins DO Height/Weight Height: 5 ft 9 in Weight: 115.1 kg Allergies Allergy/AdvReac Type Severity Reaction Status Date / Time mercury (elemental) Allergy Intermediate Facial Verified 03/26/23 16:59 swelling, Nausea/Vomiting strawberry Allergy Intermediate rash Verified 03/26/23 16:59 Fish Containing Products Allergy Verified 03/27/23 11:59 fish derived Allergy Verified 03/27/23 11:59 fish oil Allergy Verified 03/27/23 11:59 shrimp AdvReac Intermediate ALL Verified 03/26/23 16:59 SEAFOOD D/T MERCURY RELATED. doxepin AdvReac Unknown CAN'T Verified 03/26/23 16:59 REMEMBER TOO LONG AGO Medications Home Medications Medication Instructions Recorded Confirmed Last Taken celecoxib 100 mg capsule 100 mg PO QAM 05/02/19 03/26/23 03/06/23 lithium carbonate 300 mg capsule See Rx Instructions .Route .COMPLEX 05/02/19 03/26/23 03/26/23 08:00 acetaminophen 500 mg tablet 500 mg PO Q6H PRN Pain 10/25/19 03/26/23 10/25/19 11:30 (Acetaminophen Extra Strength) 1000 mg bictegravir 50 mg-emtricitabine 1 tab PO QAM #30 tabs 01/12/20 03/26/23 03/26/23 200 mg-tenofovir alafenam 25 mg tablet (Biktarvy) hydrocortisone 2.5 % topical cream 1 applic topical DAILY PRN SKIN 11/15/21 03/26/23 Unknown IRRITATION NEEDED hydroxyzine HCl 25 mg tablet 25 mg PO DIRECTED PRN NEEDED 01/06/22 03/26/23 Unknown sertraline 25 mg tablet (Zoloft) 200 mg PO DAILY 05/03/22 03/26/23 03/26/23 deutetrabenazine 12 mg tablet 12 mg PO BID 05/18/22 03/26/23 03/26/23 08:00 (Austedo) ketoconazole 2 % shampoo 1 applic topical .COMPLEX #120 mL 05/18/22 03/26/23 Unknown hydrochlorothiazide 25 mg tablet 25 mg PO QAM PRN Fluid Retention 05/30/22 03/26/23 Unknown #90 tabs pregabalin 300 mg capsule 300 mg PO BID 30 days #60 caps 10/23/22 03/26/23 03/26/23 08:00 cyanocobalamin (vitamin B-12) 1,000 mcg sublingual QAM #90 tabs 11/02/22 03/26/23 03/26/23 1,000 mcg sublingual tablet methocarbamol 750 mg tablet 750 mg PO TID PRN MUSCLE SPASMS 12/24/22 03/26/23 Unknown ropinirole 3 mg tablet 3 mg PO QPM #30 tabs 12/29/22 03/26/23 03/25/23 cholecalciferol (vitamin D3) 125 125 mcg PO DAILY #90 caps 01/08/23 03/26/23 03/26/23 mcg (5,000 unit) capsule tamsulosin 0.4 mg capsule 0.4 mg PO DAILY #90 caps 01/23/23 03/26/23 03/26/23 ketoconazole 2 % topical cream 1 applic topical DAILY #30 grams 01/30/2303/2603/06/23 cariprazine 1.5 mg capsule 1.5 mg PO DAILY #30 caps 01/31/23 03/26/23 03/26/23 (Vraylar) propranolol 20 mg tablet 20 mg PO BID #60 tabs 02/07/23 03/26/23 03/06/23 08:00 benztropine 0.5 mg tablet 0.5 mg PO BID #60 tabs 02/14/23 03/26/23 03/26/23 08:00 iron,carbonyl 65 mg-vitamin C 125 1 tab PO DAILY RLS #60 tabs 02/15/23 03/26/23 03/26/23 mg tablet,delayed release (Vitron-C) sumatriptan succinate 100 mg 100 mg PO .COMPLEX PRN migraine 03/01/23 03/26/23 Unknown tablet (Imitrex) headache 30 days #9 tabs diphenoxylate-atropine 2.5 1 tab PO TID PRN diarrhea #90 tabs 03/07/23 03/26/23 Unknown mg-0.025 mg tablet (Lomotil) loperamide 2 mg capsule 2 mg PO TID PRN Diarrhea 07/17/23 07/17/23 Unknown Active Medications Generic Name Dose Route Start Last Admin Trade Name Clemente PRN Reason Stop Dose Admin Benztropine Mesylate 0.5 mg 03/26/23 21:19 03/27/23 20:03 Benztropine Mesylate 0.5 Mg Tab PO 04/25/23 21:18 0.5 mg BID MARJAN Administration Celecoxib 100 mg 03/27/23 09:00 03/27/23 08:01 Celecoxib 100 Mg Cap PO 04/26/23 08:59 Not Given QAM MARJAN Dolutegravir Sodium 50 mg 03/27/23 14:00 03/27/23 14:56 Dolutegravir Sodium 50 Mg Tab PO 04/26/23 13:59 50 mg DAILY MARJAN Administration Protocol Emtricitabine/Tenofovir 1 tab 03/27/23 14:00 03/27/23 14:56 Emtricitabine/Tenofovir Tab PO 04/26/23 13:59 1 tab DAILY MARJAN Administration Protocol Enoxaparin Sodium 40 mg 03/26/23 22:00 03/27/23 20:01 Enoxaparin Inj 40 Mg/0.4 Ml Syr SQ 04/25/23 21:59 40 mg Q24H MARJAN Administration Vancomycin HCl 1,500 mg/ 530 mls @ 200 mls/hr 03/27/23 06:00 03/27/23 17:57 Sodium Chloride IV 04/03/23 05:59 200 mls/hr Q12H MARJAN Administration Cefepime HCl 2,000 mg/ Syringe 20 mls @ 5 mls/min 03/27/23 12:00 03/27/23 20:00 IV 04/04/23 11:59 5 mls/min Q8H MARJAN Administration Protocol [place] Carbonate 300 mg 03/27/23 09:00 03/27/23 08:00 [place] Carbonate 300 Mg Tab PO 04/26/23 08:59 300 mg QAM MARJAN Administration [place] Carbonate 600 mg 03/26/23 21:19 03/27/23 20:02 [place] Carbonate 300 Mg Tab PO 04/25/23 21:18 600 mg PM MARJAN Administration Metronidazole 500 mg 03/27/23 10:30 03/27/23 20:02 Metronidazole 500 Mg Tab PO 04/04/23 10:29 500 mg BID MARJAN Administration Protocol Miscellaneous 1 each 03/26/23 21:19 03/27/23 17:56 [place] - Order Awaiting Action N/A 04/25/23 21:18 Not Given QS MARJAN Miscellaneous 1 each 03/27/23 00:00 03/27/23 17:57 Vraylar - Order Awaiting Action N/A 04/26/23 00:00 Not Given QS MARJAN Pregabalin 300 mg 03/26/23 21:19 03/27/23 20:01 Pregabalin 150 Mg Cap PO 04/25/23 21:18 300 mg BID MARJAN Administration Ropinirole HCl 3 mg 03/26/23 21:19 03/27/23 20:02 Ropinirole Hcl 1 Mg Tablet PO 04/25/23 21:18 3 mg QPM MARJAN Administration Sertraline HCl 200 mg 03/27/23 09:00 03/27/23 08:00 Sertraline Hcl 100 Mg Tablet PO 04/26/23 08:59 200 mg DAILY MARJAN Administration Tamsulosin HCl 0.4 mg 03/27/23 09:00 03/27/23 08:00 Tamsulosin Hcl 0.4 Mg Cap PO 04/26/23 08:59 0.4 mg DAILY MARJAN Administration Past Medical History Medical History Bipolar 1 disorder Bipolar disorder Cervical pain Epididymitis Esophageal reflux Family history of melanoma Generalized anxiety disorder Human immunodeficiency virus (HIV) disease Dx around 2001 - 2002 Inguinal lymphadenitis Kidney stones Left knee sprain Leg swelling Lumbar pain Nodule of groin Obesity Peripheral neuropathy Restless leg syndrome Spondylosis of cervical region without myelopathy or radiculopathy Thoracic back pain Vitamin B12 deficiency Vitamin D deficiency disease Past Family History Family History Mother Diabetes Systemic lupus erythematosus Father Melanoma Myocardial infarction Prostate cancer Other Ulcerative colitis Denies family history of Ovarian cancer Crohn's disease Breast cancer Colorectal cancer Irritable bowel syndrome Past Surgical History Surgical History S/P cholecystectomy S/P gastric surgery Status post gastric bypass for obesity Social History Smoking Status: Never smoker Do You Dip or Chew Tobacco: No Hx Alcohol Use: No Hx Substance Use: No Physical Exam Vital Signs Last Vital Signs Temp 98.6 F 03/27/23 15:25 Pulse 50 L 07/18/23 15:25 Resp 18 03/27/23 15:25 BP 129/77 03/27/23 15:25 Pulse Ox 96 03/27/23 15:25 O2 Del Method Room Air 03/27/23 15:25 Testing Laboratory Results 03/27/23 05:58 03/27/23 05:58 Urine Color Yellow 03/26/23 21:40 Urine Appearance Clear (Clear) 03/26/23 21:40 Urine pH 5.5 (4.5-7.5) 03/26/23 21:40 Ur Specific [place] > 1.045 (1.000-1.030) H 03/26/23 21:40 Urine Protein 1+ (Negative) H 03/26/23 21:40 Urine Glucose (UA) Negative (Negative) 03/26/23 21:40 Urine Ketones Negative (Negative) 03/26/23 21:40 Urine Nitrite Negative (Negative) 03/26/23 21:40 Ur Leukocyte Esterase Negative (Negative) 03/26/23 21:40 Urine WBC (Auto) 1-5 /hpf (0-5) 03/26/23 21:40 Urine RBC (Auto) 0-4 /hpf (0-4) 03/26/23 21:40 U Hyaline Cast (Auto) 1-5 /lpf (0-5) 03/26/23 21:40 U Epithel Cells (Auto) 0-5 /lpf (0-5) 03/26/23 21:40 Urine Bacteria (Auto) Negative (Negative) 03/26/23 21:40 03/26/23 16:31 Aerobic Blood Culture - Preliminary Blood No growth in Aerobic bottle after 24 hours. Anaerobic Blood Culture - Preliminary No growth in Anaerobic bottle after 24 hours. 03/26/23 15:34 Aerobic Blood Culture - Preliminary Blood No growth in Aerobic bottle after 24 hours. Anaerobic Blood Culture - Preliminary No growth in Anaerobic bottle after 24 hours. 03/26/23 16:46 Gram Stain - Final Leg Aerobic and Anaerobic Culture - Preliminary Staphylococcus species Electrocardiogram Date: 03/26/23 Sinus bradycardia, rate 50 bpm Otherwise normal ECG When compared with ECG of 06-MAR-2023 13:09, No significant change was found Confirmed by Sal Alcala ([id number]) on 03/27/2023 2:49:59 PM Echocardiogram Date: 04/12/20 LV size, thickness and function are normal No regional wall motion abnormalities noted EF 65-70% No significant valvular pathology
[2023-03-28] MEDS: CEFEPIME 2,000 MG in SYRINGE 0 ML IV SCH ×3 (03:11→20:13)
[2023-03-28] MEDS ORDERED: VANCOMYCIN LEVEL ONE (05:30)
[2023-03-28] MEDS: VANCOMYCIN HCL 1,500 MG in SODIUM CHLORIDE 0.9% 500 ML IV SCH ×2 (06:22→17:54)
[2023-03-28 06:42] LABS: Basophils # (auto) 0.02 K/uL (0-0.2); Basophils % (auto) 0.5 %; Eosinophils # (auto) 0.15 K/uL (0-0.50); Hematocrit (blood only) 30.4 % (42.0-52.0); Hemoglobin 9.7 g/dl (14.0-18.0); Immature Granulocytes # (auto) 0.02 K/uL (0.01-0.20); Immature Granulocytes % (auto) 0.5 %; Lymphocytes # (auto) 1.17 K/uL (1.2-3.4); Lymphocytes % (auto) 31.4 %; Mean Corpuscular Hemoglobin 26.7 pg (25.0-34.0); Mean Corpuscular Hgb Conc 31.9 g/dL (32.0-36.0); Mean Corpuscular Volume 83.7 fL (80.0-100.0); Mean Platelet Volume 11.3 fL (9.4-12.4); Monocytes # (auto) 0.35 K/uL (0.11-0.59); Monocytes % (auto) 9.4 %; Neutrophils # (auto) 2.02 K/uL (1.40-6.50); Neutrophils % (auto) 54.2 %; Platelet Count 155 K/uL (130-400); RDW Coefficient of Variation 13.7 % (11.5-14.5); RDW Standard Deviation 42.3 fL (36.4-46.3); Red Blood Count 3.63 M/uL (4.70-6.10); White Blood Count 3.73 K/ul (4.8-10.8)
[2023-03-28] MEDS ORDERED: fentaNYL citrate PF 100 MCG/2 ML VIAL ONE (06:46)
[2023-03-28] MEDS ORDERED: ONDANSETRON INJ 2 MG/ML 2 ML VIAL ONE (06:46)
[2023-03-28] MEDS ORDERED: MIDAZOLAM HCL 1 MG/ML 2ML VIAL ONE (06:46)
[2023-03-28] MEDS ORDERED: PROPOFOL IV EMULSION 10 MG/ML 20 ML VIAL IV ONE (06:46)
[2023-03-28] MEDS ORDERED: DEXAMETHASONE SOD INJ 4 MG/ML VIAL ONE (06:46)
[2023-03-28] MEDS ORDERED: LIDOCAINE 2% 2 ML VIAL/AMP(20MG/ML) INFIL ONE (06:46)
[2023-03-28] MEDS ORDERED: BUPIVACAINE/EPINEPHRINE 0.5% MPF 1:200,000 10 ML VIAL ONE (07:05)
[2023-03-28] MEDS ORDERED: BUPIVACAINE/EPINEPHRINE 0.5% MPF 1:200,000 30 ML VIAL ONE (07:06)
[2023-03-28] MEDS ORDERED: ONDANSETRON INJ 2 MG/ML 2 ML VIAL IV PRN (07:08)
[2023-03-28] MEDS ORDERED: fentaNYL citrate PF 100 MCG/2 ML VIAL IV PRN (07:08)
[2023-03-28] MEDS ORDERED: ATROPINE SULFATE 0.1 MG/ML 10ML SYR IV PRN (07:08)
[2023-03-28] MEDS ORDERED: HYDROmorphone INJ 2 MG/ML SYR/VIAL IV PRN (07:08)
[2023-03-28] MEDS ORDERED: ePHEDrine sulfate 50 MG/ML AMP IV PRN (07:08)
--- NOTE | 2023-03-28 07:16 | Surgery Progress Note ---
Date of Service March 28, 2023 Assessment & Plan (1) Wound cellulitis: Plan: We will proceed with incision drainage and debridement of left lower extremity wound in the OR today Consent was obtained, risk discussed including bleeding, infection, nonhealing wound (2) Wound of left leg: Admission and Anticipated Discharge Date Admission Date: March 26, 2023 Subjective Patient seen and examined. Still with purulent drainage from the left lower extremity wound. No fevers or chills. Review of Systems Constitutional: no fever and no chills Physical Exam Constitutional: WD/WN, vitals as above Eyes: PERRL, conjunctivae normal, anicteric sclerae ENMT: external ear and nose normal, oropharynx normal Neck: trachea midline, no thyromegaly Respiratory: normal respiratory effort, lungs clear to auscultation Cardiovascular: RRR, no murmur, no edema Gastrointestinal (Abdomen): normal bowel sounds, soft, nontender, no hepatosplenomegaly Musculoskeletal: no cyanosis or clubbing, extremities motor strength 5/5 Skin: no rashes, warm and dry Open wound on the medial portion of the left leg with purulent fluid oozing out of the proximal portion of the wound, erythema and tenderness to touch in this area Neurologic: PERRL, EOMI, accommodation nl, no face palsy, no dysarthria Psychiatric: A+Ox3, euthymic affect Results & Data Vital Signs (Past 12 Hours) Vital Signs Temp Pulse Resp BP Pulse Ox O2 Del Method 03/28/23 06:38 36.7 C 49 L 20 131/69 96 Room Air 03/27/23 22:18 36.5 C 57 L 16 148/82 H 95 Room Air PG Care Time/CCT Total # of Minutes Spent Total Time Spent with Patient: Total time spent is greater than 50% in coordination of care (as documented) at patient's floor/unit and/or counseling patient: Coding Level of Care Code 84319 SUB INP/OBS CARE 25MIN Diagnoses Wound cellulitis L03.90 Wound of left leg S81.802A
[2023-03-28 07:22] LABS: Albumin Level 2.9 gm/dl (3.4-5.0); BUN Creatinine Ratio 11.9 (10-20); Bilirubin,Total 0.2 mg/dl (0.2-1.0); Calcium 8.1 mg/dl (8.6-10.3); Creatinine Clr Calc Pharmacy 124.3 ml/min; Est GFR (African American) 114.2 ml/min; Est GFR (Non-African American) 98.6 ml/min; Potassium 3.7 mmol/L (3.5-5.1); Total Protein 5.9 gm/dl (6.0-8.3)
--- NOTE | 2023-03-28 08:16 | Post Operative Brief Note ---
PG Immediate Post Op with CF Date of Surgery March 28, 2023 Pre & Post Diagnosis Operation Date: 03/28/23 07:30 Pre-Op Diagnosis: L LEG INFECTION Post-Op Diagnosis: L LEG INFECTION I identified the patient and participated in the time-out.: Yes Procedure Operation Date: 03/28/23 07:30 Actual Procedures p Incision and Drainage with Debridement of Left Lower Extremity(Left) - Rios Dawkins DO Surgeon Rios Dawkins DO Chucking Machine Operator Shasta Coello PA-C Estimated Blood Loss 5 Findings Consistent with Post-Op Diagnosis Anesthesia Type General Complications none Disposition Disposition: Recovery Room
--- NOTE | 2023-03-28 08:21 | Operative Report ---
PG Post Operative Report Pre & Post Diagnosis Operation Date: 03/28/23 07:30 Pre-Op Diagnosis: L LEG INFECTION Post-Op Diagnosis: L LEG INFECTION I identified the patient and participated in the time-out.: Yes Procedure Operation Date: 03/28/23 07:30 Actual Procedures p Incision and Drainage with Debridement of Left Lower Extremity(Left) - Rios Dawkins DO Surgeon Rios Dawkins DO Project Director Shasta Coello PA-C Estimated Blood Loss 5 Findings Consistent with Post-Op Diagnosis Specimens None Drains None Anesthesia Type General Complications none Disposition Disposition: Recovery Room Indications 57 yo male with a left leg wound/abscess Description of Procedure The patient was brought to the operating room and underwent general endotracheal anesthesia without issue. The left lower extremity was prepped and draped in the usual sterile fashion. Appropriate pre-operative antibiotics were administered. A timeout was called. The procedure was verified as incision and drainage and debridement of left lower extremity wound/abscess. Surgical, anesthesia and nursing teams agreed and the procedure was begun. At the superi or portion of the wound where there was purulent drainage this was probed and tracked for approximately 5 cm. Purulent fluid was drained. Using a 15 blade scalpel this was unroofed and the skin removed. Wide drainage was ensured. Some necrotic appearing tissue was debrided using electrocautery. The entire wound inferiorly looked fairly healthy with good granulation tissue and was up to surface level. This was left in place. The entire wound measured 20 cm x 10 cm. The drainage and debridement went down to the level of the muscle. The wound was irrigated until clear. At this time hemostasis was achieved using electrocautery. Hemostasis was complete. At this time the incision was packed superiorly with a wet-to-dry Kerlex and a sterile dressing was applied. At this time the patient was awakened from anesthesia and extubated having remained stable throughout the entire case and transported to PACU in stable condition. The physician printing assistant was present and scrubbed for the entire case. She was essential in positioning, prepping and draping the patient, retraction and exposure, placement of the dressing. I attest to the content of the Intraoperative Record and any orders documented therein. Any exceptions are noted below.
--- NOTE | 2023-03-28 09:13 | Anesthesiology Progress Note ---
Date of Service March 28, 2023 Anesthesia Post Procedure Vital Signs Vital Signs: Temp Pulse Pulse Resp BP Pulse Ox O2 Del Method 03/28/23 09:00 50 L 16 141/74 H 96 Room Air 03/28/23 08:50 50 L 16 145/79 H 96 Room Air 03/28/23 08:40 36.4 C L 50 L 16 139/80 97 Room Air 03/28/23 08:30 50 L 14 135/81 98 Room Air 03/28/23 08:20 36.0 C L 50 L 14 150/80 H 100 Oxymask 03/28/23 06:38 36.7 C 49 L 20 131/69 96 Room Air 03/27/23 22:18 36.5 C 57 L 16 148/82 H 95 Room Air 03/27/23 15:25 37 C 50 L 18 129/77 96 Room Air O2 Flow Rate 03/28/23 09:00 03/28/23 08:50 03/28/23 08:40 03/28/23 08:30 03/28/23 08:20 6 03/28/23 06:38 03/27/23 22:18 03/27/23 15:25 Pain Intensity Left Leg: Pain Intensity: 4 Transfer of Care Handoff Completed per policy Notes Mental Status: alert / awake / arousable and participated in evaluation Patient Amnestic to Procedure: Yes Nausea / Vomiting: adequately controlled Pain: adequately controlled Airway Patency, RR, SpO2: stable & adequate BP & HR: stable & adequate Hydration State: stable & adequate Anesthetic Complications: no major complications apparent and Pt Satisfied with anesthetic care
--- NOTE | 2023-03-28 09:14 | Pharmacy Report ---
Pharmacy PK ABX Note - Date of Service March 28, 2023 - Assessment and Plan Assessment 03/28: * Patient's antibiotics changed to cefepime and po flagyl yesterday. Continues on vancomycin. Prelim leg cultures with staph species. Blood cultures negative. ID following. 03/27: * 57 year old M receiving vancomycin/Zosyn for treatment of LLE cellulitis. Pertinent microbiologic data includes: NEGATIVE MRSA Nasal Swab, leg culture growing staph species. * Day # 1 of antimicrobial therapy. * Patient recently seen in ER on 03/06/23 with wound cultures growing Enterobacter cloacae, MSSA (in the L ankle culture) and E coli (R to FQs, bactrim, I to Unasyn), Bacteroides, Peptostreptococcus, and Clostridium perfinges Plan Vancomycin * Random level for vancomycin this AM was ~11 mcg/ml - plan to continue current vancomycin regimen. * Dosing associated with achieving goal AUC/OBEY of 400-600. * Renal function remains stable at this time * Will await further ID recommendations once cultures finalize Pharmacy has transitioned to AUC monitoring for vancomycin. AUC/OBEY is the preferred PK/PD target and is associated with decreased risk of nephrotoxicity compared to traditional trough targets.
[2023-03-28] MEDS ORDERED: MoRPHine SULFATE 2 MG/ML CARP IV PRN (09:25)
[2023-03-28] MEDS: BENZTROPINE MESYLATE 0.5 MG TAB PO SCH ×2 (10:23→20:05)
[2023-03-28] MEDS: CELECOXIB 100 MG CAP PO SCH (10:24)
[2023-03-28] MEDS: LITHIUM CARBONATE 300 MG TAB PO SCH ×2 (10:24→20:06)
[2023-03-28] MEDS: metroNIDAZOLE 500 MG TAB PO SCH ×2 (10:24→20:05)
[2023-03-28] MEDS: SERTRALINE HCL 100 MG TABLET PO SCH (10:24)
[2023-03-28] MEDS: EMTRICITABINE/TENOFOVIR TAB PO SCH (10:24)
[2023-03-28] MEDS: TAMSULOSIN HCL 0.4 MG CAP PO SCH (10:24)
[2023-03-28] MEDS: DOLUTEGRAVIR SODIUM 50 MG TAB PO SCH (10:25)
[2023-03-28] MEDS: oxyCODONE HCL IR 5 MG TAB (IMMEDIATE RELEASE) PO PRN ×2 (10:28→18:21)
[2023-03-28] MEDS: PREGABALIN 150 MG CAP PO SCH ×2 (10:29→20:04)
--- NOTE | 2023-03-28 11:05 | Billing Data ---
Date of Service March 26, 2023 Coding Level of Care Code 03384 INT INP/OBS CARE
--- NOTE | 2023-03-28 11:56 | Infectious Disease Progress Nt ---
Date of Service March 28, 2023 Assessment & Plan (1) Wound cellulitis: (2) Wound of left leg: (3) Human immunodeficiency virus (HIV) disease: Plan 57 yo M with history of HIV (on Biktarvy, VL UD, CD4 450 in 07/2022), RLS, peripheral neuropathy, dyskinesia, anxiety, bipolar disorder, LLE hematoma after traumatic injury ~1 month ago with c/f necrotic hematoma s/p I&D at [facility] on 03/08 and 03/11 and placement of wound vac, who presented on 03/26 with worsening LLE wound, found to have SSTI. Pt was admitted to [facility] from 03/07-03/19. He did not have signs of infection, and was managed without antibiotics. No antibiotics prescribed on discharge. Home health advised pt to present to ED due to LLE worsening, with increased pain, brown discharge with foul smell. On presentation, VSS without leukocytosis, ESR 50, CRP 5.77, procal 0.10. MRSA nares negative. CT LLE with contrast showed no acute osteomyelitis, persistent L lower leg subcutaneous fluid and skin thickening which could reflect edema or cellulitis, and medial L lower leg wound with near complete resolution of a ssociated fluid collection seen on prior CT 03/06, with small residual fluid and gas containing collection--subcutaneous gas likely related to open wound; gas- forming infectious process less likely but could have similar imaging appearance. BCx NGTD. A swab of LLE wound was taken, which is currently growing Staph species. Pt was started on vanc, pip-tazo. Pt reportedly has a history of MRSA skin infections in the past when he was in [place]. I called over to [facility] micro lab, and no cultures were sent during the pt's recent hospitalization. Pip-tazo was switched to cefepime, given prior wound culture from February that grew Enterobacter cloacae. Also prefer to avoid amp-sulbactam at this time, as prior LLE culture grew E coli intermediate to this. Now s/p OR debridement on 03/28. It does not appear any OR cultures were sent. Micro: 03/26 LLE swab cx: Staph species. GS--GPCs, GNRs 03/26 BCx x2: NGTD 03/26 MRSA swab: negative 03/06 L leg wound cx: E coli (S amox/clav, cefaz, ceftriaxone, pip-tazo. I amp/sul. R amp, cipro, levo, TMP/SMX), Bacteroides fragilis, Peptostreptococcus, Clostridium perfringens 03/06 L ankle wound cx: Enterobacter cloacae (S cefepime, ceftriaxone, pip-tazo. R cipro, levo, TMP/SMX), MSSA Abx: Vanc 03/26 - Cefepime 03/27 - Pip-tazo 03/26, 03/27 Amp-sulbactam 03/26-03/27 Problems: #LLE wound c/b SSTI #HIV: well-controlled on Biktarvy #Reported history of MRSA skin infections Recommendations: -Follow-up 03/26 LLE swab culture. Unfortunately, it appears no cultures from OR were sent -Can continue vanc and cefepime for now. -Continue dolutegravir + emtricitabine/TDF in place of home Biktarvy, which is not on formulary Will continue to follow Please page ID Connect Call Center with further questions. Admission and Anticipated Discharge Date Admission Date: March 26, 2023 Subjective This patient recommendation is based on a telemedicine consult request which was completed asynchronously through chart review and information provided by the primary physician. The patient was not seen or examined today. The evaluation is consultative in nature and all patient care and treatment decisions can either be accepted or rejected by the patient's primary hospital-based treating physician using their own independent medical judgment for their patient. Time Spent Reviewing Chart: 11 - 20 minutes Taken to OR for LLE debridement today Remains afebrile without leukocytosis Review of System pt not seen Physical Exam Physical Exam: pt not seen Results & Data Vital Signs (Past 12 Hours) Vital Signs Temp Pulse Pulse Resp BP Pulse Ox O2 Del Method 03/28/23 11:20 36.4 C L 59 L 18 133/79 98 Room Air 03/28/23 10:20 36.8 C 54 L 16 146/83 H 94 Room Air 03/28/23 09:49 36.7 C 56 L 16 133/78 96 Room Air 03/28/23 09:00 50 L 16 141/74 H 96 Room Air 03/28/23 08:50 50 L 16 145/79 H 96 Room Air 03/28/23 08:40 36.4 C L 50 L 16 139/80 97 Room Air 03/28/23 08:30 50 L 14 135/81 98 Room Air 03/28/23 08:20 36.0 C L 50 L 14 150/80 H 100 Oxymask 03/28/23 06:38 36.7 C 49 L 20 131/69 96 Room Air O2 Flow Rate 03/28/23 11:20 03/28/23 10:20 03/28/23 09:49 03/28/23 09:00 03/28/23 08:50 03/28/23 08:40 03/28/23 08:30 03/28/23 08:20 6 03/28/23 06:38 Laboratory Results Short CBC 03/28/23 Range/Units 06:18 WBC 3.73 L (4.8-10.8) K/ul Hgb 9.7 L (14.0-18.0) g/dl Hct 30.4 L (42.0-52.0) % Plt Count 155 (130-400) K/uL BMP 03/28/23 06:18 Sodium 142 Potassium 3.7 Chloride 115 H Carbon Dioxide 24 BUN 10 Creatinine 0.84 Glucose 91 Calcium 8.1 L Liver Function 03/28/23 Range/Units 06:18 Total Bilirubin 0.2 (0.2-1.0) mg/dl AST 15 (13-39) U/L ALT 17 (7-52) U/L Alkaline Phosphatase 132 H (34-104) U/L Albumin 2.9 L (3.4-5.0) gm/dl Medications Administered Current Inpatient Medications Acetaminophen (Acetaminophen 325 Mg Tab) 650 mg PO Q4H PRN PRN Reason: Pain or Fever Stop: 04/25/23 21:18 Benztropine Mesylate (Benztropine Mesylate 0.5 Mg Tab) 0.5 mg PO BID MARJAN Stop: 04/25/23 21:18 Last Admin: 03/28/23 10:23 Dose: 0.5 mg Celecoxib (Celecoxib 100 Mg Cap) 100 mg PO QAM MARJAN Stop: 04/26/23 08:59 Last Admin: 03/28/23 10:24 Dose: 100 mg Dolutegravir Sodium (Dolutegravir Sodium 50 Mg Tab) 50 mg PO DAILY MARJAN; Protocol Stop: 04/26/23 13:59 Last Admin: 03/28/23 10:25 Dose: 50 mg Emtricitabine/Tenofovir (Emtricitabine/Tenofovir Tab) 1 tab PO DAILY [facility]; Protocol Stop: 04/26/23 13:59 Last Admin: 03/28/23 10:24 Dose: 1 tab Enoxaparin Sodium (Enoxaparin Inj 40 Mg/0.4 Ml Syr) 40 mg SQ Q24H MARJAN Stop: 04/25/23 21:59 Last Admin: 03/27/23 20:01 Dose: 40 mg Vancomycin HCl 1,500 mg/ (Sodium Chloride) 530 mls @ 200 mls/hr IV Q12H MARJAN Stop: 04/03/23 05:59 Last Infusion: 03/28/23 10:01 Dose: Infused Cefepime HCl 2,000 mg/ Syringe 20 mls @ 5 mls/min IV Q8H [facility]; Protocol Stop: 04/04/23 11:59 Last Admin: 03/28/23 03:11 Dose: 5 mls/min Haigler Carbonate (Haigler Carbonate 300 Mg Tab) 300 mg PO QAM [facility] Stop: 04/26/23 08:59 Last Admin: 03/28/23 10:24 Dose: 300 mg Haigler Carbonate (Haigler Carbonate 300 Mg Tab) 600 mg PO PM [facility] Stop: 04/25/23 21:18 Last Admin: 03/27/23 20:02 Dose: 600 mg Metronidazole (Metronidazole 500 Mg Tab) 500 mg PO BID [facility]; Protocol Stop: 04/04/23 10:29 Last Admin: 03/28/23 10:24 Dose: 500 mg Miscellaneous (Austedo - Order Awaiting Action) 1 each N/A QS [facility] Stop: 04/25/23 21:18 Last Admin: 03/28/23 09:28 Dose: Not Given Miscellaneous (Vraylar - Order Awaiting Action) 1 each N/A QS [facility] Stop: 04/26/23 00:00 Last Admin: 03/28/23 09:28 Dose: Not Given Miscellaneous Information (Vancomycin Consult Active) 1 each N/A UD PRN PRN Reason: Consult Stop: 04/25/23 19:58 Morphine Sulfate (Morphine Sulfate 2 Mg/Ml Carp) 2 mg IV Q2H PRN PRN Reason: severe pain Stop: 04/11/23 09:24 Ondansetron HCl (Ondansetron 4 Mg Od Tab) 4 mg PO Q6H PRN PRN Reason: Nausea Stop: 04/25/23 21:18 Oxycodone HCl (Oxycodone Hcl Ir 5 Mg Tab (Immediate Release)) 5 mg PO Q4H PRN PRN Reason: Pain Stop: 04/10/23 11:04 Last Admin: 03/28/23 10:28 Dose: 5 mg Oxycodone HCl (Oxycodone Hcl Ir 5 Mg Tab (Immediate Release)) 5 mg PO Q4H PRN PRN Reason: moderate pain Stop: 04/11/23 09:24 Polyethylene Glycol (Polyethylene (Miralax) 17 Gm Pack) 17 gm PO DAILY PRN PRN Reason: Constipation Stop: 04/25/23 21:18 Pregabalin (Pregabalin 150 Mg Cap) 300 mg PO BID MARJAN Stop: 04/25/23 21:18 Last Admin: 03/28/23 10:29 Dose: 300 mg Ropinirole HCl (Ropinirole Hcl 1 Mg Tablet) 3 mg PO QPM [facility] Stop: 04/25/23 21:18 Last Admin: 03/27/23 20:02 Dose: 3 mg Sertraline HCl (Sertraline Hcl 100 Mg Tablet) 200 mg PO DAILY [facility] Stop: 04/26/23 08:59 Last Admin: 03/28/23 10:24 Dose: 200 mg Tamsulosin HCl (Tamsulosin Hcl 0.4 Mg Cap) 0.4 mg PO DAILY [facility] Stop: 04/26/23 08:59 Last Admin: 03/28/23 10:24 Dose: 0.4 mg
--- NOTE | 2023-03-28 13:13 | Hospitalist Progress Note ---
Date of Service March 28, 2023 Assessment & Plan (1) Wound of left leg: Plan: Acute infected left lower leg- likely secondary to infected hematoma following fall off chair- complicated by immunosuppression in HIV patient. - Following I&D in OR today with drainage of purulence material and debridement down to clean muscle layer- no cultures sent- confirmed with surgical service. -blood CX- NGTD - Wound culture from leg on 03/26 with staph- negative for MRSA swab - Current dressing WTD with Kerlex wrap- wound consultation in- expect conversion to wound-VAC within next 24-48 hours- defer further wound care to WCN/Surgery - ID consulted- see below - Vanc and Cefepime (2) Cellulitis of leg without foot, left: Plan: As above:- ID RECS "Recommendations: -Follow-up 03/26 LLE swab culture. Unfortunately, it appears no cultures from OR were sent -Can continue vanc and cefepime for now. -Continue dolutegravir + emtricitabine/TDF in place of home Biktarvy, which is not on formulary" (3) Bipolar 1 disorder: Plan: Bipolar chronic with anxiety component - Patient states he can have his Vraylar brought in in the AM of 03/29/23- - Continue lithium, sertraline - Lozano level in AM (4) Human immunodeficiency virus (HIV) disease: Plan: HIV- chronic - Continue dolutegravir + emtricitabine/TDF in place of home Biktarvy- as Biktarvy is non-formulary - (5) Generalized anxiety disorder: Plan: As above- chronic controlled (6) Peripheral neuropathy: Plan: Chronic controlled - Continue home pregabalin (7) Restless leg syndrome: Plan: Chronic controlled - Continue home ropinirole (8) Essential tremor: Plan: Chronic - Essential tremor - Coninue home benztropine, austedo (9) Sleep apnea: Plan: SA -cont. home cpap hs (10) Lower back pain: Plan: Chronic- #Low back pain, chronic -cont. home celecoxib- follow renal function and platelet counts Plan DVT ppx: Lovenox FEN/GI: Regular Code Status: DNI/DNR Dispo: Med Surg Admission and Anticipated Discharge Date Admission Date: March 26, 2023 Subjective 57 YOM HD #3 and POD #0 from I&D of LLE wound/infection. Complicated by HIV and immunosuppression. Patient reports originally started after falling off chair and on floor and resulting in hematoma formation. Patient is being followed by Infectious Disease and General Surgery. He has been transitioned to BikTarvy equivalence for in house as he was unable to get his home medications. He was Taken to OR for LLE debridement 03/28/23, where he had drainage of purulence and debridement of tissue down to muscle. It is covered with wet to dry and kerlex at this time while likely transitioning to wound vac within next 24 hours. Currently appears no cultures were sent from operating room. Patient voices feeling well today he is briskly awake following recovery and tolerating oral intake. Pain control is adequate. Culture data and notes reviewed. CODE: DNR/DNI Physical Exam Physical Exam: PHYSICAL EXAM: General: awake, alert, no apparent distress Head: Normocephalic, atraumatic ENT: PERRL, EOMI, no pharyngeal exudate, mucous membranes moist Neuro: AAO x 3, speech clear and appropriate, strength intact bilaterally 5/5, sensation intact and equal all extremities and dermatomes, no pronator drift Chest: equal rise and fall of the chest, no accessory muscle use, no heaves or thrills, Clear to auscultation, on room air, Cardiac: Regular rate and rhythm, skin warm dry, cap refill <3 seconds, peripheral pulses +2 no JVD, no murmur, GI: NABS x 4 quadrants, soft, nontender to palpation, no rebound, guarding or tenderness : Spontaneously voiding, no pain, no CVA tenderness, MSK: LLE wound over the medial calf covered with wet to dry ABD pad and Kerlex Results & Data Results & Data Vital Signs (Past 12 Hours) Vital Signs Temp Pulse Pulse Resp BP Pulse Ox O2 Del Method 03/28/23 12:20 36.7 C 61 16 122/70 97 Room Air 03/28/23 11:20 36.4 C L 59 L 18 133/79 98 Room Air 03/28/23 10:20 36.8 C 54 L 16 146/83 H 94 Room Air 03/28/23 09:49 36.7 C 56 L 16 133/78 96 Room Air 03/28/23 09:00 50 L 16 141/74 H 96 Room Air 03/28/23 08:50 50 L 16 145/79 H 96 Room Air 03/28/23 08:40 36.4 C L 50 L 16 139/80 97 Room Air 03/28/23 08:30 50 L 14 135/81 98 Room Air 03/28/23 08:20 36.0 C L 50 L 14 150/80 H 100 Oxymask 03/28/23 06:38 36.7 C 49 L 20 131/69 96 Room Air O2 Flow Rate 03/28/23 12:20 03/28/23 11:20 03/28/23 10:20 03/28/23 09:49 03/28/23 09:00 03/28/23 08:50 03/28/23 08:40 03/28/23 08:30 03/28/23 08:20 6 03/28/23 06:38 Laboratory Results Abnormal lab results 03/28/23 03/28/23 Range/Units 06:18 06:18 WBC 3.73 L (4.8-10.8) K/ul RBC 3.63 L (4.70-6.10) M/uL Hgb 9.7 L (14.0-18.0) g/dl Hct 30.4 L (42.0-52.0) % MCHC 31.9 L (32.0-36.0) g/dL Lymph # (Auto) 1.17 L (1.2-3.4) K/uL Chloride 115 H (98-107) mmol/L Calcium 8.1 L (8.6-10.3) mg/dl Alkaline Phosphatase 132 H (34-104) U/L Total Protein 5.9 L (6.0-8.3) gm/dl Albumin 2.9 L (3.4-5.0) gm/dl PG Care Time/CCT Total # of Minutes Spent Total Time Spent with Patient: Total time spent is greater than 50% in coordination of care (as documented) at patient's floor/unit and/or counseling patient: Coding Level of Care Code 70996 SUB INP/OBS CARE 3/50MIN History Detailed Exam Detailed Medical Decision Making High Complexity Diagnoses Wound of left leg S81.802A Cellulitis of leg without foot, left L03.116 Bipolar 1 disorder F31.9 Human immunodeficiency virus (HIV) disease B20 Generalized anxiety disorder F41.1 Peripheral neuropathy G62.9 Restless leg syndrome G25.81 Essential tremor G25.0 Sleep apnea G47.30 Lower back pain M54.5
[2023-03-28] MEDS: ENOXAPARIN INJ 40 MG/0.4 ML SYR SQ SCH (20:04)
[2023-03-28] MEDS: rOPINIRole HCL 1 MG TABLET PO SCH (20:05)
[2023-03-28] MEDS: AUSTEDO 12 MG PO SCH (21:18)
[2023-03-28] MEDS: CARIPRAZINE HCL PO SCH (21:18)
[2023-03-29] MEDS: oxyCODONE HCL IR 5 MG TAB (IMMEDIATE RELEASE) PO PRN ×3 (01:25→21:32)
[2023-03-29] MEDS: CEFEPIME 2,000 MG in SYRINGE 0 ML IV SCH ×2 (03:00→12:28)
[2023-03-29] MEDS: VANCOMYCIN HCL 1,500 MG in SODIUM CHLORIDE 0.9% 500 ML IV SCH (05:35)
[2023-03-29 08:02] LABS: Basophils # (auto) 0.02 K/uL (0-0.2); Basophils % (auto) 0.4 %; Eosinophils % (auto) 6.5 %; Hematocrit (blood only) 31.7 % (42.0-52.0); Hemoglobin 9.8 g/dl (14.0-18.0); Immature Granulocytes # (auto) 0.03 K/uL (0.01-0.20); Immature Granulocytes % (auto) 0.6 %; Lymphocytes # (auto) 1.26 K/uL (1.2-3.4); Lymphocytes % (auto) 27.2 %; Mean Corpuscular Hemoglobin 26.3 pg (25.0-34.0); Mean Corpuscular Hgb Conc 30.9 g/dL (32.0-36.0); Mean Corpuscular Volume 85.2 fL (80.0-100.0); Mean Platelet Volume 11.1 fL (9.4-12.4); Monocytes # (auto) 0.34 K/uL (0.11-0.59); Monocytes % (auto) 7.3 %; Neutrophils # (auto) 2.68 K/uL (1.40-6.50); Platelet Count 168 K/uL (130-400); RDW Coefficient of Variation 14.3 % (11.5-14.5); RDW Standard Deviation 44.4 fL (36.4-46.3); Red Blood Count 3.72 M/uL (4.70-6.10); White Blood Count 4.63 K/ul (4.8-10.8)
[2023-03-29 08:15] LABS: BUN Creatinine Ratio 16.3 (10-20); Calcium 7.9 mg/dl (8.6-10.3); Creatinine Clr Calc Pharmacy 130.5 ml/min; Est GFR (African American) 116.6 ml/min; Est GFR (Non-African American) 100.6 ml/min; Potassium 3.8 mmol/L (3.5-5.1)
[2023-03-29] MEDS: TAMSULOSIN HCL 0.4 MG CAP PO SCH (08:19)
[2023-03-29] MEDS: LITHIUM CARBONATE 300 MG TAB PO SCH ×2 (08:19→21:28)
[2023-03-29] MEDS: metroNIDAZOLE 500 MG TAB PO SCH (08:19)
[2023-03-29] MEDS: SERTRALINE HCL 100 MG TABLET PO SCH (08:19)
[2023-03-29] MEDS: CELECOXIB 100 MG CAP PO SCH (08:19)
[2023-03-29] MEDS: BENZTROPINE MESYLATE 0.5 MG TAB PO SCH ×2 (08:20→21:26)
[2023-03-29] MEDS: AUSTEDO 12 MG PO SCH ×2 (08:20→21:28)
[2023-03-29] MEDS: BIKTARVY PO SCH (08:20)
[2023-03-29] MEDS: PREGABALIN 150 MG CAP PO SCH ×2 (08:26→21:30)
--- NOTE | 2023-03-29 10:22 | Infectious Disease Progress Nt ---
Date of Service March 29, 2023 Assessment & Plan (1) Wound cellulitis: (2) Wound of left leg: (3) Human immunodeficiency virus (HIV) disease: Plan 57 yo M with history of HIV (on Biktarvy, VL UD, CD4 450 in 07/2022), RLS, peripheral neuropathy, dyskinesia, anxiety, bipolar disorder, LLE hematoma after traumatic injury ~1 month ago with c/f necrotic hematoma s/p I&D at [facility] [address] on 03/08 and 03/11 and placement of wound vac, who presented on 03/26 with worsening LLE wound, found to have SSTI s/p debridement 03/28. Pt was admitted to [facility] [address] from 03/07-03/19. He did not have signs of infection, and was managed without antibiotics. No antibiotics prescribed on discharge. Home health advised pt to present to ED due to LLE worsening, with increased pain, brown discharge with foul smell. On presentation, VSS without leukocytosis, ESR 50, CRP 5.77, procal 0.10. MRSA nares negative. CT LLE with contrast showed no acute osteomyelitis, persistent L lower leg subcutaneous fluid and skin thickening which could reflect edema or cellulitis, and medial L lower leg wound with near complete resolution of associated fluid collection seen on prior CT 03/06, with small residual fluid and gas containing collection--subcutaneous gas likely related to open wound; gas-forming infectious process less likely but could have similar imaging appearance. BCx NGTD. A swab of LLE wound was taken, which is currently growing Staph species. Pt was started on vanc, pip-tazo. Pt reportedly has a hi story of MRSA skin infections in the past when he was in [place]. I called over to [facility] [address] micro lab, and no cultures were sent during the pt's recent hospitalization. Pip-tazo was switched to cefepime, given prior wound culture from February that grew Enterobacter cloacae. Also prefer to avoid amp-sulbactam at this time, as prior LLE culture grew E coli intermediate to this. Now s/p OR debridement on 03/28. No OR cultures were sent. Micro: 03/26 LLE swab cx: MSSA (S clinda, tetra, TMP/SMX), Group B Strep, Bacteroides fragilis. GS--GPCs, GNRs 03/26 BCx x2: NGTD 03/26 MRSA swab: negative 03/06 L leg wound cx: E coli (S amox/clav, cefaz, ceftriaxone, pip-tazo. I amp/sul. R amp, cipro, levo, TMP/SMX), Bacteroides fragilis, Peptostreptococcus, Clostridium perfringens 03/06 L ankle wound cx: Enterobacter cloacae (S cefepime, ceftriaxone, pip-tazo. R cipro, levo, TMP/SMX), MSSA Abx: Cefepime 03/27 - Metronidazole 03/27 - present Vanc 03/26 - 03/29 Pip-tazo 03/26, 03/27 Amp-sulbactam 03/26-03/27 Problems: #LLE wound c/b SSTI #HIV: well-controlled on Biktarvy #Reported history of MRSA skin infections Recommendations: -Follow-up 03/26 LLE swab culture for finalization -Discontinued vancomycin, as MRSA was not seen on culture -Since we do not have OR cultures from 03/28, will make antibiotic selection based on the superficial swab cultures from 03/26 and 03/06. The Enterobacter cloacae presents some problem as it has higher risk of AmpC production and therefore we try to avoid 3rd generation cephalosporins, and it is resistant to other oral antibiotic options. Therefore, to cover the Enterobacter, E coli, MSSA, Group B Strep, and anaerobes, would plan for ertapenem 1 g daily (for ease of dosing) on discharge through 04/06 to complete a 10 day course from debridement. Will need midline placement for outpatient antibiotics. -Please let ID know if pt is not amenable to the above plan, and will try to come up with alternative. -Discontinued cefepime and metronidazole, started ertapenem 1 g daily in anticipation -Check weekly CBC and CMP while on ertapenem to monitor for toxicity -Continue dolutegravir + emtricitabine/TDF in place of home Biktarvy, which is not on formulary. Continue Biktarvy on discharge Discussed with primary team. Will sign off but follow peripherally in case discharge antibiotics need to change. Please page ID Connect Call Center with further questions. Admission and Anticipated Discharge Date Admission Date: March 26, 2023 Subjective This patient recommendation is based on a telemedicine consult request which was completed asynchronously through chart review and information provided by the primary physician. The patient was not seen or examined today. The evaluation is consultative in nature and all patient care and treatment decisions can either be accepted or rejected by the patient's primary hospital-based treating physician using their own independent medical judgment for their patient. Time Spent Reviewing Chart: 21 - 30 minutes Pt not seen Afebrile without leukocytosis S/p OR yesterday Review of System pt not seen Physical Exam Physical Exam: pt not seen Results & Data Vital Signs (Past 12 Hours) Vital Signs Temp Pulse Resp BP Pulse Ox O2 Del Method 03/29/23 07:50 36.6 C 48 L 16 124/77 98 Room Air 03/29/23 03:18 36.6 C 45 L 16 124/73 95 Room Air 03/28/23 22:35 36.8 C 68 18 128/75 94 Room Air Laboratory Results Short CBC 03/29/23 Range/Units 07:20 WBC 4.63 L (4.8-10.8) K/ul Hgb 9.8 L (14.0-18.0) g/dl Hct 31.7 L (42.0-52.0) % Plt Count 168 (130-400) K/uL BMP 03/29/23 07:20 Sodium 141 Potassium 3.8 Chloride 115 H Carbon Dioxide 23 BUN 13 Creatinine 0.80 Glucose 102 H Calcium 7.9 L Medications Administered Current Inpatient Medications Acetaminophen (Acetaminophen 325 Mg Tab) 650 mg PO Q4H PRN PRN Reason: Pain or Fever Stop: 04/25/23 21:18 Benztropine Mesylate (Benztropine Mesylate 0.5 Mg Tab) 0.5 mg PO BID MARJAN Stop: 04/25/23 21:18 Last Admin: 03/29/23 08:20 Dose: 0.5 mg Bictegravir/Emtricitabine/Tenofovir (Biktarvy 50/200/25 Mg) 1 each PO DAILY MARJAN Stop: 04/28/23 08:59 Last Admin: 03/29/23 08:20 Dose: 1 each Cariprazine (Cariprazine Hcl) 1 each PO QPM MARJAN Stop: 04/27/23 20:59 Last Admin: 03/28/23 21:18 Dose: 1 each Celecoxib (Celecoxib 100 Mg Cap) 100 mg PO QAM [facility] Stop: 04/26/23 08:59 Last Admin: 03/29/23 08:19 Dose: 100 mg Deutetrabenazine (Austedo 12 Mg Tab) 1 each PO BID MARJAN Stop: 04/27/23 20:59 Last Admin: 03/29/23 08:20 Dose: 1 each Enoxaparin Sodium (Enoxaparin Inj 40 Mg/0.4 Ml Syr) 40 mg SQ Q24H MARJAN Stop: 04/25/23 21:59 Last Admin: 03/28/23 20:04 Dose: 40 mg Cefepime HCl 2,000 mg/ Syringe 20 mls @ 5 mls/min IV Q8H [facility]; Protocol Stop: 04/04/23 11:59 Last Admin: 03/29/23 03:00 Dose: 5 mls/min Waini[place] Carbonate (Wainiha Carbonate 300 Mg Tab) 300 mg PO QAM [facility] Stop: 04/26/23 08:59 Last Admin: 03/29/23 08:19 Dose: 300 mg [place] Carbonate (Wainiha Carbonate 300 Mg Tab) 600 mg PO PM [facility] Stop: 04/25/23 21:18 Last Admin: 03/28/23 20:06 Dose: 600 mg Metronidazole (Metronidazole 500 Mg Tab) 500 mg PO BID [facility]; Protocol Stop: 04/04/23 10:29 Last Admin: 03/29/23 08:19 Dose: 500 mg Morphine Sulfate (Morphine Sulfate 2 Mg/Ml Carp) 2 mg IV Q2H PRN PRN Reason: severe pain Stop: 04/11/23 09:24 Ondansetron HCl (Ondansetron 4 Mg Od Tab) 4 mg PO Q6H PRN PRN Reason: Nausea Stop: 04/25/23 21:18 Oxycodone HCl (Oxycodone Hcl Ir 5 Mg Tab (Immediate Release)) 5 mg PO Q4H PRN PRN Reason: Pain Stop: 04/10/23 11:04 Last Admin: 03/29/23 01:25 Dose: 5 mg Oxycodone HCl (Oxycodone Hcl Ir 5 Mg Tab (Immediate Release)) 5 mg PO Q4H PRN PRN Reason: moderate pain Stop: 04/11/23 09:24 Polyethylene Glycol (Polyethylene (Miralax) 17 Gm Pack) 17 gm PO DAILY PRN PRN Reason: Constipation Stop: 04/25/23 21:18 Pregabalin (Pregabalin 150 Mg Cap) 300 mg PO BID MARJAN Stop: 04/25/23 21:18 Last Admin: 03/29/23 08:26 Dose: 300 mg Ropinirole HCl (Ropinirole Hcl 1 Mg Tablet) 3 mg PO QPM MARJAN Stop: 04/25/23 21:18 Last Admin: 03/28/23 20:05 Dose: 3 mg Sertraline HCl (Sertraline Hcl 100 Mg Tablet) 200 mg PO DAILY MARJAN Stop: 04/26/23 08:59 Last Admin: 03/29/23 08:19 Dose: 200 mg Tamsulosin HCl (Tamsulosin Hcl 0.4 Mg Cap) 0.4 mg PO DAILY MARJAN Stop: 04/26/23 08:59 Last Admin: 03/29/23 08:19 Dose: 0.4 mg
--- NOTE | 2023-03-29 10:33 | Surgery Progress Note ---
Date of Service March 29, 2023 Assessment & Plan (1) Wound cellulitis: Plan: He is doing well postop day 1 incision and drainage and debridement of his left lower extremity wound Most of the purulent fluid had drained out from the more superior portion of the wound prior to the OR Some necrotic tissue was debrided at the time of the operating room but overall the wound was fairly clean Can use a wet-to-dry dressing until the wound VAC is placed We will continue to follow along (2) Cellulitis of leg without foot, left: Admission and Anticipated Discharge Date Admission Date: March 26, 2023 Subjective Patient seen and examined. Minimal pain. No acute events overnight. Review of Systems Constitutional: no fever and no chills Physical Exam Constitutional: WD/WN, vitals as above Skin: Dressing in place, clean dry and intact Results & Data Vital Signs (Past 12 Hours) Vital Signs Temp Pulse Resp BP Pulse Ox O2 Del Method 03/29/23 07:50 36.6 C 48 L 16 124/77 98 Room Air 03/29/23 03:18 36.6 C 45 L 16 124/73 95 Room Air 03/28/23 22:35 36.8 C 68 18 128/75 94 Room Air PG Care Time/CCT Total # of Minutes Spent Total Time Spent with Patient: Total time spent is greater than 50% in coordination of care (as documented) at patient's floor/unit and/or counseling patient: Coding Level of Care Code 25494 Post Operative Follow-Up Diagnoses Wound cellulitis L03.90 Cellulitis of leg without foot, left L03.116
--- NOTE | 2023-03-29 13:35 | Hospitalist Progress Note ---
Date of Service March 29, 2023 Assessment & Plan (1) Wound of left leg: Plan: Acute infected left lower leg- likely secondary to infected hematoma following fall off chair- complicated by immunosuppression in HIV patient. - Following I&D in OR today with drainage of purulence material and debridement down to clean muscle layer- no cultures sent- confirmed with surgical service. - blood CX- NGTD - Wound culture from leg on 03/26 with staph- negative for MRSA swab - Current dressing WTD with Kerlex wrap- wound consultation in- expect conversion to wound-VAC - defer further wound care to WCN/Surgery - ID consulted- recommending ertapenem daily IV Abx which will cover for all superficial isolates as well as the previous Enterobacter isolate from February - PT/OT consultation for ambulatory assistance aid (2) Diarrhea: Plan: Appears chronic when discussing with pateint- however in-light of abx therapy and immuno-supression will order C. Diff - If positive would treat with Dificid with immunosuppression - Follow results (3) Cellulitis of leg without foot, left: Plan: As above:- ID RECS (4) Bipolar 1 disorder: Plan: Bipolar chronic with anxiety component - Vraylar brought in and in use as directed - Continue lithium, sertraline - [place] level in AM (5) Human immunodeficiency virus (HIV) disease: Plan: HIV- chronic - Biktarvy brought in from home- transitioned to home med this morning dose - Hospital equivalent discontinued (6) Generalized anxiety disorder: Plan: As above- chronic controlled (7) Peripheral neuropathy: Plan: Chronic controlled - Continue home pregabalin (8) Restless leg syndrome: Plan: Chronic controlled - Continue home ropinirole (9) Essential tremor: Plan: Chronic - Essential tremor - Coninue home benztropine, austedo (10) Sleep apnea: Plan: SA -cont. home cpap hs (11) Lower back pain: Plan: Chronic- #Low back pain, chronic -cont. home celecoxib- follow renal function and platelet counts Plan DVT ppx: Lovenox FEN/GI: Regular Code Status: DNI/DNR Dispo: Med Surg Admission and Anticipated Discharge Date Admission Date: March 26, 2023 Supervising Physician Co-Signing Physician Notes PERSONAL HEALTH COACH Supervision Note: I did not personally see or examine the patient. I verified all calles points and agree with EULALIA Penaloza with the following exceptions and/or additions: none Subjective 57 YOM HD #4 and POD #1 from I&D of LLE wound/infection. Complicated by HIV and immunosuppression. Patient reports originally started after falling off chair and on floor and resulting in hematoma formation. Patient is being followed by Infectious Disease and General Surgery. He has been transitioned back to his home BikTarvy which he was able to bring in, as well as his Vryalar, and Austedo. He was Taken to OR for LLE debridement 03/28/23, where he had drainage of purulence and debridement of tissue down to muscle, no cultures were sent from operating room. Patient voices feeling well today and with better pain control. Does endorse worse pain with ambulating and feels off balance- PT/OT consultation for ambulatory aide. Patient also endorses increasing diarrhea, which he reports has not had normal BM for "many weeks", in setting of multitude of abx therapy will send C. Diff. He is afebrile and without leukocytosis. Physical Exam 2 Physical Exam: PHYSICAL EXAM: General: awake, alert, no apparent distress Head: Normocephalic, atraumatic ENT: PERRL, EOMI, no pharyngeal exudate, mucous membranes moist Neuro: AAO x 3, speech clear and appropriate, strength intact bilaterally 5/5, sensation intact and equal all extremities and dermatomes, no pronator drift Chest: equal rise and fall of the chest, no accessory muscle use, no heaves or thrills, Clear to auscultation, on room air, Cardiac: Regular rate and rhythm, skin warm dry, cap refill <3 seconds, peripheral pulses +2 no JVD, no murmur, GI: NABS x 4 quadrants, soft, nontender to palpation, no rebound, guarding or tenderness, diarrhea endorsed today : Spontaneously voiding, no pain, no CVA tenderness, MSK: LLE wound over the medial calf covered with wet to dry and occlusive dressing Results & Data Results & Data Vital Signs (Past 12 Hours) Vital Signs Temp Pulse Resp BP Pulse Ox O2 Del Method 03/29/23 11:24 36.7 C 53 L 16 114/62 96 Room Air 03/29/23 07:50 36.6 C 48 L 16 124/77 98 Room Air 03/29/23 03:18 36.6 C 45 L 16 124/73 95 Room Air Laboratory Results Abnormal lab results 03/29/23 03/29/23 03/29/23 Range/Units 07:20 07:20 07:20 WBC 4.63 L (4.8-10.8) K/ul RBC 3.72 L (4.70-6.10) M/uL Hgb 9.8 L (14.0-18.0) g/dl Hct 31.7 L (42.0-52.0) % MCHC 30.9 L (32.0-36.0) g/dL Chloride 115 H (98-107) mmol/L Glucose 102 H (70-99(Fasting)) mg/dl Calcium 7.9 L (8.6-10.3) mg/dl [place] 0.5 L (0.6-1.2) mmol/L Medications Administered Active Medications Acetaminophen (Acetaminophen 325 Mg Tab) 650 mg PO Q4H PRN PRN Reason: Pain or Fever Stop: 04/25/23 21:18 Benztropine Mesylate (Benztropine Mesylate 0.5 Mg Tab) 0.5 mg PO BID MARJAN Stop: 04/25/23 21:18 Last Admin: 03/29/23 08:20 Dose: 0.5 mg Bictegravir/Emtricitabine/Tenofovir (Biktarvy 50/200/25 Mg) 1 each PO DAILY MARJAN Stop: 04/28/23 08:59 Last Admin: 03/29/23 08:20 Dose: 1 each Cariprazine (Cariprazine Hcl) 1 each PO QPM MARJAN Stop: 04/27/23 20:59 Last Admin: 03/28/23 21:18 Dose: 1 each Celecoxib (Celecoxib 100 Mg Cap) 100 mg PO QAM MARJAN Stop: 04/26/23 08:59 Last Admin: 03/29/23 08:19 Dose: 100 mg Deutetrabenazine (Austedo 12 Mg Tab) 1 each PO BID MARJAN Stop: 04/27/23 20:59 Last Admin: 03/29/23 08:20 Dose: 1 each Enoxaparin Sodium (Enoxaparin Inj 40 Mg/0.4 Ml Syr) 40 mg SQ Q24H MARJAN Stop: 04/25/23 21:59 Last Admin: 03/28/23 20:04 Dose: 40 mg Cefepime HCl 2,000 mg/ Syringe 20 mls @ 5 mls/min IV Q8H [facility]; Protocol Stop: 04/04/23 11:59 Last Admin: 03/29/23 12:28 Dose: 5 mls/min [place] Carbonate ([place] Carbonate 300 Mg Tab) 300 mg PO QAM [facility] Stop: 04/26/23 08:59 Last Admin: 03/29/23 08:19 Dose: 300 mg [place] Carbonate ([place] Carbonate 300 Mg Tab) 600 mg PO PM MARJAN Stop: 04/25/23 21:18 Last Admin: 03/28/23 20:06 Dose: 600 mg Metronidazole (Metronidazole 500 Mg Tab) 500 mg PO BID [facility]; Protocol Stop: 04/04/23 10:29 Last Admin: 03/29/23 08:19 Dose: 500 mg Morphine Sulfate (Morphine Sulfate 2 Mg/Ml Carp) 2 mg IV Q2H PRN PRN Reason: severe pain Stop: 04/11/23 09:24 Ondansetron HCl (Ondansetron 4 Mg Od Tab) 4 mg PO Q6H PRN PRN Reason: Nausea Stop: 04/25/23 21:18 Oxycodone HCl (Oxycodone Hcl Ir 5 Mg Tab (Immediate Release)) 5 mg PO Q4H PRN PRN Reason: Pain Stop: 04/10/23 11:04 Last Admin: 03/29/23 10:31 Dose: 5 mg Oxycodone HCl (Oxycodone Hcl Ir 5 Mg Tab (Immediate Release)) 5 mg PO Q4H PRN PRN Reason: moderate pain Stop: 04/11/23 09:24 Polyethylene Glycol (Polyethylene (Miralax) 17 Gm Pack) 17 gm PO DAILY PRN PRN Reason: Constipation Stop: 04/25/23 21:18 Pregabalin (Pregabalin 150 Mg Cap) 300 mg PO BID [facility] Stop: 04/25/23 21:18 Last Admin: 03/29/23 08:26 Dose: 300 mg Ropinirole HCl (Ropinirole Hcl 1 Mg Tablet) 3 mg PO QPM [facility] Stop: 04/25/23 21:18 Last Admin: 03/28/23 20:05 Dose: 3 mg Sertraline HCl (Sertraline Hcl 100 Mg Tablet) 200 mg PO DAILY [facility] Stop: 04/26/23 08:59 Last Admin: 03/29/23 08:19 Dose: 200 mg Tamsulosin HCl (Tamsulosin Hcl 0.4 Mg Cap) 0.4 mg PO DAILY MARJAN Stop: 04/26/23 08:59 Last Admin: 03/29/23 08:19 Dose: 0.4 mg PG Care Time/CCT Total # of Minutes Spent Total Time Spent with Patient: Total time spent is greater than 50% in coordination of care (as documented) at patient's floor/unit and/or counseling patient: Coding Level of Care Code 02871 SUB INP/OBS CARE 3/50MIN Diagnoses Wound of left leg S81.802A Diarrhea R19.7 Diarrhea type: unspecified type Cellulitis of leg without foot, left L03.116 Bipolar 1 disorder F31.9 Human immunodeficiency virus (HIV) disease B20 Generalized anxiety disorder F41.1 Peripheral neuropathy G62.9 Restless leg syndrome G25.81 Essential tremor G25.0 Sleep apnea G47.30 Lower back pain M54.5 (2) Diarrhea Diarrhea type: unspecified type Qualified Code(s): R19.7 - Diarrhea, unspecified
[2023-03-29] MEDS: ERTAPENEM SODIUM 1,000 MG in SYRINGE 0 ML IV SCH (16:31)
[2023-03-29] MEDS: CARIPRAZINE HCL PO SCH (21:27)
[2023-03-29] MEDS: rOPINIRole HCL 1 MG TABLET PO SCH (21:30)
[2023-03-29] MEDS: ENOXAPARIN INJ 40 MG/0.4 ML SYR SQ SCH (21:31)
[2023-03-30 07:43] LABS: Basophils # (auto) 0.03 K/uL (0-0.2); Basophils % (auto) 0.6 %; Eosinophils # (auto) 0.32 K/uL (0-0.50); Eosinophils % (auto) 6.6 %; Hematocrit (blood only) 30.7 % (42.0-52.0); Hemoglobin 9.5 g/dl (14.0-18.0); Immature Granulocytes # (auto) 0.03 K/uL (0.01-0.20); Immature Granulocytes % (auto) 0.6 %; Lymphocytes # (auto) 1.46 K/uL (1.2-3.4); Mean Corpuscular Hgb Conc 30.9 g/dL (32.0-36.0); Mean Corpuscular Volume 83.9 fL (80.0-100.0); Mean Platelet Volume 11.3 fL (9.4-12.4); Monocytes # (auto) 0.39 K/uL (0.11-0.59); Neutrophils # (auto) 2.64 K/uL (1.40-6.50); Neutrophils % (auto) 54.2 %; Platelet Count 171 K/uL (130-400); RDW Coefficient of Variation 14.3 % (11.5-14.5); RDW Standard Deviation 43.1 fL (36.4-46.3); Red Blood Count 3.66 M/uL (4.70-6.10); White Blood Count 4.87 K/ul (4.8-10.8)
[2023-03-30 07:54] LABS: BUN Creatinine Ratio 15.6 (10-20); Calcium 7.9 mg/dl (8.6-10.3); Creatinine Clr Calc Pharmacy 135.6 ml/min; Est GFR (African American) 118.4 ml/min; Est GFR (Non-African American) 102.2 ml/min; Magnesium 1.9 mg/dl (1.7-2.4); Potassium 3.8 mmol/L (3.5-5.1)
[2023-03-30] MEDS: SERTRALINE HCL 100 MG TABLET PO SCH (08:56)
[2023-03-30] MEDS: CELECOXIB 100 MG CAP PO SCH (08:56)
[2023-03-30] MEDS: LITHIUM CARBONATE 300 MG TAB PO SCH ×2 (08:56→21:17)
[2023-03-30] MEDS: BENZTROPINE MESYLATE 0.5 MG TAB PO SCH ×2 (08:56→21:16)
[2023-03-30] MEDS: BIKTARVY PO SCH (08:57)
[2023-03-30] MEDS: TAMSULOSIN HCL 0.4 MG CAP PO SCH (08:57)
[2023-03-30] MEDS: AUSTEDO 12 MG PO SCH ×2 (08:57→21:16)
--- NOTE | 2023-03-30 08:57 | Surgery Progress Note ---
Date of Service March 30, 2023 Assessment & Plan (1) Wound cellulitis: Plan: He continues to do well, dressing change yesterday without issue Wound care nurses following, possible VAC placement today I discussed with him that he may need further debridement at some point if his wound stalls and healing Local wound care with wound VAC for now to see how the wound responds For now, surgery will sign off please call with any questions or concerns (2) Cellulitis of leg without foot, left: Admission and Anticipated Discharge Date Admission Date: March 26, 2023 Subjective Patient seen and examined. No acute events overnight. Minimal left lower extremity pain. Review of Systems Constitutional: no fever and no chills Physical Exam Constitutional: WD/WN, vitals as above Skin: Dressing in place, clean dry and intact Results & Data Vital Signs (Past 12 Hours) Vital Signs Temp Pulse Resp BP Pulse Ox O2 Del Method 03/30/23 08:22 37.2 C 46 L 16 154/82 H 95 Room Air 03/29/23 23:05 36.8 C 57 L 16 144/82 H 95 Room Air PG Care Time/CCT Total # of Minutes Spent Total Time Spent with Patient: Total time spent is greater than 50% in coordination of care (as documented) at patient's floor/unit and/or counseling patient: Coding Level of Care Code 13111 Post Operative Follow-Up Diagnoses Wound cellulitis L03.90 Cellulitis of leg without foot, left L03.116
[2023-03-30] MEDS: oxyCODONE HCL IR 5 MG TAB (IMMEDIATE RELEASE) PO PRN (08:59)
[2023-03-30] MEDS: PREGABALIN 150 MG CAP PO SCH ×2 (09:06→21:21)
--- NOTE | 2023-03-30 11:29 | Hospitalist Progress Note ---
Date of Service March 30, 2023 Assessment & Plan (1) Wound of left leg: Plan: LLE cellulitis/wound - likely secondary to infected hematoma following fall off chair- complicated by immunosuppression in HIV patient - Following I&D in OR 03/29 with drainage of purulent material and debridement down to clean muscle layer, no cultures sent, now with wound vac in place - Cx as follows: -03/26 LLE swab cx: MSSA (S clinda, tetra, TMP/SMX), Group B Strep, Bacteroides fragilis. GS--GPCs, GNRs -03/26 BCx x2: NGTD -03/06 L leg wound cx: E coli, Bacteroides fragilis, Peptostreptococcus, Clostridium perfringens -03/06 L ankle wound cx: Enterobacter cloacae, MSSA - ID consulted- recommending ertapenem 1g IV daily x10 days - Plan for rehab on discharge due to need for wound vac and daily IV antibiotics, concern about patient being able to manage these things at home, will need US guided IV (2) Diarrhea: Plan: - Appears chronic when discussing with patient, however in-light of Abx therapy and immuno-suppression C. diff testing ordered, negative - Supportive care (3) Cellulitis of leg without foot, left: Plan: As above, see #1 (4) Bipolar 1 disorder: Plan: Bipolar chronic with anxiety component - Vraylar brought in and in use as directed - Continue lithium, sertraline (5) Human immunodeficiency virus (HIV) disease: Plan: HIV- chronic - Biktarvy brought in from home- transitioned to home med - Hospital equivalent discontinued (6) Generalized anxiety disorder: Plan: As above, chronic, controlled (7) Peripheral neuropathy: Plan: Chronic controlled - Continue home pregabalin (8) Restless leg syndrome: Plan: Chronic controlled - Continue home ropinirole (9) Essential tremor: Plan: Chronic - Essential tremor - Coninue home benztropine, austedo (10) Sleep apnea: Plan: SA -Cont. home CPAP hs (11) Lower back pain: Plan: Chronic- #Low back pain, chronic -Cont. home celecoxib Plan DVT ppx: Lovenox FEN/GI: Regular Code Status: DNI/DNR Dispo: Med Surg Admission and Anticipated Discharge Date Admission Date: March 26, 2023 Subjective Still with some diarrhea, no abdominal pain, some leg pain. Otherwise no complaints today. Nervous about return home due to wound vac, IV antibiotics, and difficult social situation (lives with [id number] ). Review of Systems Review of Systems: All systems reviewed & are unremarkable except as noted in Subjective Physical Exam Constitutional: WD/WN, vitals as above Gastrointestinal (Abdomen): normal bowel sounds, soft, nontender, no hepatosplenomegaly Skin: no rashes, warm and dry dressing and wound vac in place to LLE Psychiatric: A+Ox3, euthymic affect Results & Data Results & Data Vital Signs (Past 12 Hours) Vital Signs Temp Pulse Resp BP Pulse Ox O2 Del Method 03/30/23 08:22 37.2 C 46 L 16 154/82 H 95 Room Air PG Care Time/CCT Total # of Minutes Spent Total Time Spent with Patient: Total time spent is greater than 50% in coordination of care (as documented) at patient's floor/unit and/or counseling patient: Coding Level of Care Code 05092 SUB INP/OBS CARE 2/35MIN Diagnoses Wound of left leg S81.802A Diarrhea R19.7 Diarrhea type: unspecified type Cellulitis of leg without foot, left L03.116 Bipolar 1 disorder F31.9 Human immunodeficiency virus (HIV) disease B20 Generalized anxiety disorder F41.1 Peripheral neuropathy G62.9 Restless leg syndrome G25.81 Essential tremor G25.0 Sleep apnea G47.30 Lower back pain M54.5 (2) Diarrhea Diarrhea type: unspecified type Qualified Code(s): R19.7 - Diarrhea, unspecified
[2023-03-30] MEDS: ACETAMINOPHEN 500 MG TAB PO SCH ×4 (13:50→21:19)
[2023-03-30] MEDS ORDERED: Nursing to Pharmacy Communication SCH (15:45)
[2023-03-30] MEDS: ERTAPENEM SODIUM 1,000 MG in SYRINGE 0 ML IV SCH (17:29)
[2023-03-30] MEDS: CARIPRAZINE HCL PO SCH (21:16)
[2023-03-30] MEDS: rOPINIRole HCL 1 MG TABLET PO SCH (21:17)
[2023-03-30] MEDS: ENOXAPARIN INJ 40 MG/0.4 ML SYR SQ SCH (21:18)
[2023-03-31] MEDS: ACETAMINOPHEN 500 MG TAB PO SCH ×3 (06:42→21:31)
[2023-03-31 07:29] LABS: Basophils # (auto) 0.03 K/uL (0-0.2); Basophils % (auto) 0.6 %; Eosinophils % (auto) 4.2 %; Hematocrit (blood only) 31.2 % (42.0-52.0); Hemoglobin 9.7 g/dl (14.0-18.0); Immature Granulocytes # (auto) 0.04 K/uL (0.01-0.20); Immature Granulocytes % (auto) 0.8 %; Lymphocytes # (auto) 1.59 K/uL (1.2-3.4); Lymphocytes % (auto) 33.5 %; Mean Corpuscular Hemoglobin 26.2 pg (25.0-34.0); Mean Corpuscular Hgb Conc 31.1 g/dL (32.0-36.0); Mean Corpuscular Volume 84.3 fL (80.0-100.0); Mean Platelet Volume 11.6 fL (9.4-12.4); Monocytes # (auto) 0.39 K/uL (0.11-0.59); Monocytes % (auto) 8.2 %; Neutrophils % (auto) 52.7 %; Platelet Count 185 K/uL (130-400); RDW Coefficient of Variation 14.3 % (11.5-14.5); RDW Standard Deviation 43.1 fL (36.4-46.3); White Blood Count 4.75 K/ul (4.8-10.8)
[2023-03-31] MEDS: BENZTROPINE MESYLATE 0.5 MG TAB PO SCH ×2 (08:02→21:30)
--- NOTE | 2023-03-31 08:02 | Hospitalist Progress Note ---
Date of Service March 31, 2023 Assessment & Plan (1) Wound of left leg: Plan: LLE cellulitis/wound - likely secondary to infected hematoma following fall off chair- complicated by immunosuppression in HIV patient - Following I&D in OR 03/29 with drainage of purulent material and debridement down to clean muscle layer, no cultures sent, now with wound vac in place - Cx as follows: - 03/26 LLE swab cx: MSSA, Group B Strep, Bacteroides fragilis. GS--GPCs, GNRs - 03/26 BCx x2: NGTD - 03/06 L leg wound cx: E coli, Bacteroides fragilis, Peptostreptococcus, Clostridium perfringens - 03/06 L ankle wound cx: Enterobacter cloacae, MSSA - ID consulted -> recommending ertapenem 1g IV daily x10 days - Plan for rehab on discharge due to need for wound vac and daily IV antibiotics, concern about patient being able to manage these things at home - Follow up outpatient with Dr. Dawkins in his office post-discharge (2) Cellulitis of leg without foot, left: Plan: As above, see #1 (3) Anemia: Plan: - Chronically anemic with baseline Hgb ~11 with normocytic MCV - Hgb stable at 9 since surgery 03/28, no evidence of active bleeding, hemody namically stable (4) Diarrhea: Plan: - Appears chronic when discussing with patient, however in-light of Abx therapy and immuno-suppression C. diff testing was ordered, which was negative - Suspect medication-related vs. immunodeficiency related, can continue home Lomotil/Imodium (5) Bipolar 1 disorder: Plan: Bipolar chronic with anxiety component - Continue home Vraylar - Continue lithium, sertraline (6) Human immunodeficiency virus (HIV) disease: Plan: HIV - chronic - Continue Biktarvy (7) Generalized anxiety disorder: Plan: - As above, chronic, controlled (8) Peripheral neuropathy: Plan: Chronic controlled - Continue home pregabalin (9) Restless leg syndrome: Plan: Chronic controlled - Continue home ropinirole (10) Essential tremor: Plan: Chronic - Essential tremor - Continue home benztropine, [place] (11) Sleep apnea: Plan: -Continue CPAP HS (12) Lower back pain: Plan: - Low back pain, chronic - Continue home celecoxib Plan DVT ppx: Lovenox FEN/GI: Regular Code Status: DNI/DNR Dispo: Med Surg Awaiting acceptance and insurance determination for rehab/SNF on discharge Admission and Anticipated Discharge Date Admission Date: March 26, 2023 Subjective Overnight with ongoing diarrhea, reports takes Lomotil and Imodium at home. Denies abdominal pain, nausea, chest pain, SOB. Review of Systems Review of Systems: All systems reviewed & are unremarkable except as noted in Subjective Physical Exam Constitutional: WD/WN, vitals as above Respiratory: normal respiratory effort, lungs clear to auscultation Cardiovascular: regular rhythm, bradycardic, no murmurs Gastrointestinal (Abdomen): normal bowel sounds, soft, nontender, no hepatosplenomegaly Skin: no rashes, warm and dry wound vac in place to LLE, no worsening erythema in area of wound vac Psychiatric: A+Ox3, euthymic affect Results & Data Results & Data Vital Signs (Past 12 Hours) Vital Signs Temp Pulse Resp BP Pulse Ox O2 Del Method 03/30/23 22:50 36.9 C 59 L 16 157/77 H 97 Room Air PG Care Time/CCT Total # of Minutes Spent Total Time Spent with Patient: Total time spent is greater than 50% in coordination of care (as documented) at patient's floor/unit and/or counseling patient: Coding Level of Care Code 93265 SUB INP/OBS CARE 3/50MIN Diagnoses Wound of left leg S81.802A Cellulitis of leg without foot, left L03.116 Anemia D64.9 Diarrhea R19.7 Diarrhea type: unspecified type Bipolar 1 disorder F31.9 Human immunodeficiency virus (HIV) disease B20 Generalized anxiety disorder F41.1 Peripheral neuropathy G62.9 Restless leg syndrome G25.81 Essential tremor G25.0 Sleep apnea G47.30 Lower back pain M54.5 (4) Diarrhea Diarrhea type: unspecified type Qualified Code(s): R19.7 - Diarrhea, unspecified
[2023-03-31] MEDS: CELECOXIB 100 MG CAP PO SCH (08:03)
[2023-03-31] MEDS: AUSTEDO 12 MG PO SCH ×2 (08:03→21:32)
[2023-03-31] MEDS: BIKTARVY PO SCH (08:03)
[2023-03-31] MEDS: SERTRALINE HCL 100 MG TABLET PO SCH (08:03)
[2023-03-31] MEDS: LITHIUM CARBONATE 300 MG TAB PO SCH ×2 (08:03→21:30)
[2023-03-31] MEDS: TAMSULOSIN HCL 0.4 MG CAP PO SCH (08:04)
[2023-03-31] MEDS: PREGABALIN 150 MG CAP PO SCH (08:06)
[2023-03-31 10:08] LABS: BUN Creatinine Ratio 17.9 (10-20); Creatinine Clr Calc Pharmacy 155.9 ml/min; Est GFR (African American) 125.4 ml/min; Est GFR (Non-African American) 108.2 ml/min; Potassium 3.9 mmol/L (3.5-5.1)
[2023-03-31] MEDS: LOPERAMIDE HCL 2 MG CAP PO PRN ×2 (14:25→21:29)
[2023-03-31] MEDS: DIPHENOXYLATE/ATROPINE 2.5/0.025MG TAB PO PRN ×2 (14:25→21:29)
[2023-03-31] MEDS: ERTAPENEM SODIUM 1,000 MG in SYRINGE 0 ML IV SCH (16:38)
[2023-03-31] MEDS: oxyCODONE HCL IR 5 MG TAB (IMMEDIATE RELEASE) PO PRN (21:29)
[2023-03-31] MEDS: rOPINIRole HCL 1 MG TABLET PO SCH (21:30)
[2023-03-31] MEDS: CARIPRAZINE HCL PO SCH (21:31)
[2023-03-31] MEDS: ENOXAPARIN INJ 40 MG/0.4 ML SYR SQ SCH (21:33)
[2023-03-31] MEDS: PREGABALIN 100 MG CAP PO SCH (21:51)
[2023-03-31] MEDS: hydrOXYzine HCl 25 MG TAB PO PRN (21:51)
[2023-04-01] MEDS: ACETAMINOPHEN 500 MG TAB PO SCH ×3 (06:04→21:39)
--- NOTE | 2023-04-01 07:53 | Hospitalist Progress Note ---
Date of Service April 01, 2023 Assessment & Plan (1) Wound of left leg: Plan: LLE cellulitis/wound - likely secondary to infected hematoma following fall off chair- complicated by immunosuppression in HIV patient - Following I&D in OR 03/29 with drainage of purulent material and debridement down to clean muscle layer, no cultures sent, now with wound vac in place - Cx as follows: - 03/26 LLE swab cx: MSSA, Group B Strep, Bacteroides fragilis. GS--GPCs, GNRs - 03/26 BCx x2: NGTD - 03/06 L leg wound cx: E coli, Bacteroides fragilis, Peptostreptococcus, Clostridium perfringens - 03/06 L ankle wound cx: Enterobacter cloacae, MSSA - ID consulted -> recommending ertapenem 1g IV daily x10 days (last dose 04/07) - Plan for rehab on discharge due to need for wound vac and daily IV antibiotics, concern about patient being able to manage these things at home - Follow up outpatient with Dr. Dawkins in his office post-discharge (2) Cellulitis of leg without foot, left: Plan: As above, see #1 (3) Anemia: Plan: - Chronically anemic with baseline Hgb ~11 with normocytic MCV - Hgb stable at 9 since surgery 03/28, no evidence of active bleeding, hemodynamically stable (4) Diarrhea: Plan: - Appears chronic when discussing with patient, however in-light of Abx therapy and immuno-suppression C. diff testing was ordered, which was negative - Suspect medication-related vs. immunodeficiency related, can continue home Lomotil/Imodium at increased home dosing 3 tabs of each BID - Has had close follow up with GI in the recent past, no infectious causes have been found (5) Bipolar 1 disorder: Plan: Chronic, with anxiety component - Continue home Vraylar - Continue lithium, sertraline (6) Human immunodeficiency virus (HIV) disease: Plan: HIV - chronic - Continue Biktarvy (7) Generalized anxiety disorder: Plan: - As above, chronic, controlled (8) Peripheral neuropathy: Plan: Chronic controlled - Continue home pregabalin (9) Restless leg syndrome: Plan: Chronic controlled - Continue home ropinirole (10) Essential tremor: Plan: Chronic - Essential tremor - Continue home benztropine, [place] (11) Sleep apnea: Plan: -Continue CPAP HS (12) Lower back pain: Plan: - Low back pain, chronic - Continue home celecoxib Plan DVT ppx: Lovenox FEN/GI: Regular Code Status: DNR/DNI Dispo: Med Surg Awaiting acceptance and insurance determination for rehab/SNF on discharge Admission and Anticipated Discharge Date Admission Date: March 26, 2023 Subjective Overnight with continued diarrhea. He reports he takes 3 Imodium and 3 Lomotil twice daily scheduled. No other stated complaints. Physical Exam Constitutional: WD/WN, vitals as above Gastrointestinal (Abdomen): normal bowel sounds, soft, nontender, no hepatosplenomegaly Skin: no rashes, warm and dry wound vac in place to LLE, no worsening erythema in area of wound vac Psychiatric: A+Ox3, euthymic affect Results & Data Results & Data Vital Signs (Past 12 Hours) Vital Signs Temp Pulse Pulse Resp BP Pulse Ox O2 Del Method 03/31/23 20:00 Room Air, CPAP 03/31/23 22:33 72 18 96 03/31/23 21:44 36.6 C 55 L 17 148/82 H 95 Room Air FiO2 03/31/23 20:00 03/31/23 22:33 21 03/31/23 21:44 PG Care Time/CCT Total # of Minutes Spent Total Time Spent with Patient: Total time spent is greater than 50% in coordination of care (as documented) at patient's floor/unit and/or counseling patient: Coding Level of Care Code 76613 SUB INP/OBS CARE 1/25MIN Diagnoses Wound of left leg S81.802A Cellulitis of leg without foot, left L03.116 Anemia D64.9 Diarrhea R19.7 Diarrhea type: unspecified type Bipolar 1 disorder F31.9 Human immunodeficiency virus (HIV) disease B20 Generalized anxiety disorder F41.1 Peripheral neuropathy G62.9 Restless leg syndrome G25.81 Essential tremor G25.0 Sleep apnea G47.30 Lower back pain M54.5 (4) Diarrhea Diarrhea type: unspecified type Qualified Code(s): R19.7 - Diarrhea, unspecified
[2023-04-01] MEDS: PREGABALIN 100 MG CAP PO SCH ×2 (08:31→21:38)
[2023-04-01] MEDS: CELECOXIB 100 MG CAP PO SCH (08:32)
[2023-04-01] MEDS: BENZTROPINE MESYLATE 0.5 MG TAB PO SCH ×2 (08:32→21:41)
[2023-04-01] MEDS: LITHIUM CARBONATE 300 MG TAB PO SCH ×2 (08:32→21:40)
[2023-04-01] MEDS: BIKTARVY PO SCH (08:32)
[2023-04-01] MEDS: SERTRALINE HCL 100 MG TABLET PO SCH (08:32)
[2023-04-01] MEDS: TAMSULOSIN HCL 0.4 MG CAP PO SCH (08:32)
[2023-04-01] MEDS: LOPERAMIDE HCL 2 MG CAP PO PRN (08:32)
[2023-04-01] MEDS: AUSTEDO 12 MG PO SCH ×2 (08:33→21:41)
[2023-04-01] MEDS: DIPHENOXYLATE/ATROPINE 2.5/0.025MG TAB PO PRN (08:37)
[2023-04-01] MEDS ORDERED: DIPHENOXYLATE/ATROPINE 2.5/0.025MG TAB PO ONE (11:32)
[2023-04-01] MEDS ORDERED: LOPERAMIDE HCL 2 MG CAP PO ONE (11:34)
[2023-04-01] MEDS: ERTAPENEM SODIUM 1,000 MG in SYRINGE 0 ML IV SCH (16:53)
[2023-04-01] MEDS: LOPERAMIDE HCL 2 MG CAP PO SCH (21:39)
[2023-04-01] MEDS: rOPINIRole HCL 1 MG TABLET PO SCH (21:40)
[2023-04-01] MEDS: DIPHENOXYLATE/ATROPINE 2.5/0.025MG TAB PO SCH (21:40)
[2023-04-01] MEDS: CARIPRAZINE HCL PO SCH (21:41)
[2023-04-01] MEDS: ENOXAPARIN INJ 40 MG/0.4 ML SYR SQ SCH (21:42)
[2023-04-02] MEDS: ACETAMINOPHEN 500 MG TAB PO SCH ×3 (06:30→21:16)
[2023-04-02] MEDS: BIKTARVY PO SCH (09:03)
[2023-04-02] MEDS: AUSTEDO 12 MG PO SCH ×2 (09:03→21:17)
[2023-04-02] MEDS: CELECOXIB 100 MG CAP PO SCH (09:03)
[2023-04-02] MEDS: BENZTROPINE MESYLATE 0.5 MG TAB PO SCH ×2 (09:03→21:14)
[2023-04-02] MEDS: DIPHENOXYLATE/ATROPINE 2.5/0.025MG TAB PO SCH ×2 (09:04→21:14)
[2023-04-02] MEDS: LITHIUM CARBONATE 300 MG TAB PO SCH ×2 (09:04→21:15)
[2023-04-02] MEDS: SERTRALINE HCL 100 MG TABLET PO SCH (09:05)
[2023-04-02] MEDS: TAMSULOSIN HCL 0.4 MG CAP PO SCH (09:05)
[2023-04-02] MEDS: PREGABALIN 100 MG CAP PO SCH ×2 (09:09→21:13)
[2023-04-02] MEDS: LOPERAMIDE HCL 2 MG CAP PO SCH ×2 (09:09→21:13)
[2023-04-02] MEDS: oxyCODONE HCL IR 5 MG TAB (IMMEDIATE RELEASE) PO PRN (09:41)
--- NOTE | 2023-04-02 15:58 | Hospitalist Progress Note ---
Date of Service April 02, 2023 Assessment & Plan (1) Wound of left leg: Plan: LLE cellulitis/wound improving with ertapenem and wound VAC. He will remain on parenteral ertapenem therapy through April 07. He underwent I&D on 03/29 with drainage of purulent material and debridement down to clean muscle layer,. Now with wound vac in place. MSSA, group B strep, Bacteroides isolated. ID consulted -> recommending ertapenem 1g IV daily x10 days (last dose 04/07). Follow up outpatient with Dr. Dawkins in his office post-discharge (2) Cellulitis of leg without foot, left: Plan: Continue intravenous ertapenem through April 07. MSSA, group B strep, Bacteroides isolated (3) Anemia: Plan: No evidence of GI bleeding. Serial labs. Chronic (4) Diarrhea: Plan: Chronic. Noninfectious. C. difficile negative. Suspect medication-related vs. immunodeficiency related. Continue home Lomotil/Imodium at increased home dosing 3 tabs of each BID. Follow-up with GI as an outpatient. (5) Bipolar 1 disorder: Plan: Stable. Continue Vraylar, lithium, sertraline (6) Human immunodeficiency virus (HIV) disease: Plan: Stable. Continue Biktarvy (7) Generalized anxiety disorder: Plan: Stable. Continue current medical management (8) Peripheral neuropathy: Plan: Stable. Continue pregabalin (9) Restless leg syndrome: Plan: Stable. Continue ropinirole (10) Essential tremor: Plan: Stable. Continue benztropine, [place] (11) Sleep apnea: Plan: Stable. Continue CPAP HS (12) Lower back pain: Plan: Chronic. Continue celecoxib Plan Hopeful discharge to [facility] tomorrow, April 03 Admission and Anticipated Discharge Date Admission Date: March 26, 2023 Subjective Alert and oriented. Afebrile. Case management working on placement at [facility]. He will remain on intravenous ertapenem through April 07. Review of Systems Review of Systems: Constitutional-no fever or chills ENT-no blurred vision, no double vision, no epistaxis, no sore throat Respiratory-no cough, no wheezing, no shortness of breath Cardiac-no palpitations, no chest pain, no syncope GI-no nausea, vomiting, diarrhea, melena, hematochezia -no urinary retention, no urinary incontinence, no dysuria, no hematuria Musculoskeletal-no joint pain, no muscle tenderness Skin-wound VAC in place left lower extremity laterally Neuro-no isolated weakness, no paresthesia, no weakness Psych-no depression, no anxiety Physical Exam Physical Exam: General-alert and oriented x3, no fevers, no chills HEENT-head atraumatic and normocephalic, pupils equal and reactive to light, extraocular muscles intact Neck-no lymphadenopathy or thyromegaly, trachea midline Chest-clear to auscultation percussion. No rales wheezing or rhonchi Cardiac-regular rate and rhythm, normal S1 and S2, no murmurs Abdomen-normal bowel sounds, nontender, no hepatosplenomegaly Extremities-wound VAC in place left lower extremity laterally. Resolving cellulitic changes Neuro-cranial nerves II through XII intact, motor and sensory function within normal limits, strength symmetrical , no focal deficits Psych-normal affect, normal mood Results & Data Results & Data Vital Signs (Past 12 Hours) Vital Signs Temp Pulse Pulse Resp BP Pulse Ox O2 Del Method 04/02/23 14:39 36.6 C 54 L 16 111/63 96 Room Air 04/02/23 07:26 36.8 C 66 16 115/71 95 Room Air Laboratory Results 03/31/23 06:30 03/31/23 06:30 PG Care Time/CCT Total # of Minutes Spent Total Time Spent with Patient: Total time spent is greater than 50% in coordination of care (as documented) at patient's floor/unit and/or counseling patient: Coding Level of Care Code 45377 SUB INP/OBS CARE 3/50MIN Diagnoses Wound of left leg S81.802A Cellulitis of leg without foot, left L03.116 Anemia D64.9 Diarrhea R19.7 Diarrhea type: unspecified type Bipolar 1 disorder F31.9 Human immunodeficiency virus (HIV) disease B20 Generalized anxiety disorder F41.1 Peripheral neuropathy G62.9 Restless leg syndrome G25.81 Essential tremor G25.0 Sleep apnea G47.30 Lower back pain M54.5 (4) Diarrhea Diarrhea type: unspecified type Qualified Code(s): R19.7 - Diarrhea, unspecified
[2023-04-02] MEDS: ERTAPENEM SODIUM 1,000 MG in SYRINGE 0 ML IV SCH (16:34)
[2023-04-02] MEDS: rOPINIRole HCL 1 MG TABLET PO SCH (21:15)
[2023-04-02] MEDS: ENOXAPARIN INJ 40 MG/0.4 ML SYR SQ SCH (21:17)
[2023-04-02] MEDS: CARIPRAZINE HCL PO SCH (21:17)
[2023-04-03] MEDS: ACETAMINOPHEN 500 MG TAB PO SCH ×3 (05:52→21:37)
[2023-04-03] MEDS: LITHIUM CARBONATE 300 MG TAB PO SCH ×2 (08:30→21:37)
[2023-04-03] MEDS: TAMSULOSIN HCL 0.4 MG CAP PO SCH (08:30)
[2023-04-03] MEDS: DIPHENOXYLATE/ATROPINE 2.5/0.025MG TAB PO SCH ×2 (08:30→21:37)
[2023-04-03] MEDS: SERTRALINE HCL 100 MG TABLET PO SCH (08:30)
[2023-04-03] MEDS: CELECOXIB 100 MG CAP PO SCH (08:30)
[2023-04-03] MEDS: BENZTROPINE MESYLATE 0.5 MG TAB PO SCH ×2 (08:30→21:37)
[2023-04-03] MEDS: AUSTEDO 12 MG PO SCH ×2 (08:31→21:37)
[2023-04-03] MEDS: BIKTARVY PO SCH (08:31)
[2023-04-03] MEDS: LOPERAMIDE HCL 2 MG CAP PO SCH ×2 (08:35→21:36)
[2023-04-03] MEDS: PREGABALIN 100 MG CAP PO SCH ×2 (08:35→21:36)
[2023-04-03] MEDS: ADVANCED PROBIOTIC 1250 MG CAPSULE PO SCH (15:15)
--- NOTE | 2023-04-03 15:30 | Hospitalist Progress Note ---
Date of Service April 03, 2023 Assessment & Plan (1) Wound of left leg: Plan: LLE cellulitis/wound improving with ertapenem and wound VAC. He will remain on parenteral ertapenem therapy through April 07. He underwent I&D on 03/29 with drainage of purulent material and debridement down to clean muscle layer,. Now with wound vac in place. MSSA, group B strep, Bacteroides isolated. ID consulted -> recommending ertapenem 1g IV daily x10 days (last dose 04/07). Follow up outpatient with Dr. Dawkins in his office post-discharge (2) Cellulitis of leg without foot, left: Plan: Continue intravenous ertapenem through April 07. MSSA, group B strep, Bacteroides isolated (3) Anemia: Plan: No evidence of GI bleeding. Serial labs. Chronic (4) Diarrhea: Plan: Chronic. Noninfectious. C. difficile negative. Suspect medication-related vs. immunodeficiency related. Continue home Lomotil/Imodium at increased home dosing 3 tabs of each BID. Follow-up with GI as an outpatient. (5) Bipolar 1 disorder: Plan: Stable. Continue Vraylar, lithium, sertraline (6) Human immunodeficiency virus (HIV) disease: Plan: Stable. Continue Biktarvy (7) Generalized anxiety disorder: Plan: Stable. Continue current medical management (8) Peripheral neuropathy: Plan: Stable. Continue pregabalin (9) Restless leg syndrome: Plan: Stable. Continue ropinirole (10) Essential tremor: Plan: Stable. Continue benztropine, [place]edo (11) Sleep apnea: Plan: Stable. Continue CPAP HS (12) Lower back pain: Plan: Chronic. Continue celecoxib Plan We will discharge to SNF facility when arrangements are finalized Admission and Anticipated Discharge Date Admission Date: March 26, 2023 Subjective No new problems. Afebrile. Medically stable. SNF placement proceedings underway. Review of Systems Review of Systems: Constitutional-no fever or chills ENT-no blurred vision, no double vision, no epistaxis, no sore throat Respiratory-no cough, no wheezing, no shortness of breath Cardiac-no palpitations, no chest pain, no syncope GI-no nausea, vomiting, diarrhea, melena, hematochezia -no urinary retention, no urinary incontinence, no dysuria, no hematuria Musculoskeletal-no joint pain, no muscle tenderness Skin-wound VAC in place left lower extremity laterally Neuro-no isolated weakness, no paresthesia, no weakness Psych-no depression, no anxiety Physical Exam Physical Exam: General-alert and oriented x3, no fevers, no chills HEENT-head atraumatic and normocephalic, pupils equal and reactive to light, extraocular muscles intact Neck-no lymphadenopathy or thyromegaly, trachea midline Chest-clear to auscultation percussion. No rales wheezing or rhonchi Cardiac-regular rate and rhythm, normal S1 and S2, no murmurs Abdomen-normal bowel sounds, nontender, no hepatosplenomegaly Extremities-wound VAC in place left lower extremity laterally. Resolving cellu litic changes Neuro-cranial nerves II through XII intact, motor and sensory function within normal limits, strength symmetrical , no focal deficits Psych-normal affect, normal mood Results & Data Results & Data Vital Signs (Past 12 Hours) Vital Signs Temp Pulse Resp BP Pulse Ox O2 Del Method 04/03/23 07:43 36.7 C 47 L 16 145/76 H 94 Room Air Laboratory Results 03/31/23 06:30 03/31/23 06:30 PG Care Time/CCT Total # of Minutes Spent Total Time Spent with Patient: Total time spent is greater than 50% in coordination of care (as documented) at patient's floor/unit and/or counseling patient: Coding Level of Care Code 37061 SUB INP/OBS CARE 2/35MIN Diagnoses Wound of left leg S81.802A Cellulitis of leg without foot, left L03.116 Anemia D64.9 Diarrhea R19.7 Diarrhea type: unspecified type Bipolar 1 disorder F31.9 Human immunodeficiency virus (HIV) disease B20 Generalized anxiety disorder F41.1 Peripheral neuropathy G62.9 Restless leg syndrome G25.81 Essential tremor G25.0 Sleep apnea G47.30 Lower back pain M54.5 (4) Diarrhea Diarrhea type: unspecified type Qualified Code(s): R19.7 - Diarrhea, unspecified
[2023-04-03] MEDS: ERTAPENEM SODIUM 1,000 MG in SYRINGE 0 ML IV SCH (16:27)
[2023-04-03] MEDS: rOPINIRole HCL 1 MG TABLET PO SCH (21:36)
[2023-04-03] MEDS: ENOXAPARIN INJ 40 MG/0.4 ML SYR SQ SCH (21:36)
[2023-04-03] MEDS: CARIPRAZINE HCL PO SCH (21:37)
[2023-04-04] MEDS: ACETAMINOPHEN 500 MG TAB PO SCH ×3 (05:44→20:50)
[2023-04-04] MEDS: CELECOXIB 100 MG CAP PO SCH (08:30)
[2023-04-04] MEDS: LITHIUM CARBONATE 300 MG TAB PO SCH ×2 (08:30→20:43)
[2023-04-04] MEDS: SERTRALINE HCL 100 MG TABLET PO SCH (08:30)
[2023-04-04] MEDS: TAMSULOSIN HCL 0.4 MG CAP PO SCH (08:30)
[2023-04-04] MEDS: DIPHENOXYLATE/ATROPINE 2.5/0.025MG TAB PO SCH ×2 (08:31→20:42)
[2023-04-04] MEDS: BIKTARVY PO SCH (08:31)
[2023-04-04] MEDS: ADVANCED PROBIOTIC 1250 MG CAPSULE PO SCH (08:31)
[2023-04-04] MEDS: BENZTROPINE MESYLATE 0.5 MG TAB PO SCH ×2 (08:31→20:41)
[2023-04-04] MEDS: AUSTEDO 12 MG PO SCH ×2 (08:31→20:41)
[2023-04-04] MEDS: LOPERAMIDE HCL 2 MG CAP PO SCH ×2 (08:33→20:49)
[2023-04-04] MEDS: PREGABALIN 100 MG CAP PO SCH ×2 (08:33→20:49)
[2023-04-04] MEDS: oxyCODONE HCL IR 5 MG TAB (IMMEDIATE RELEASE) PO PRN (09:49)
--- NOTE | 2023-04-04 12:59 | Hospitalist Progress Note ---
Date of Service April 04, 2023 Assessment & Plan (1) Wound of left leg: Plan: LLE cellulitis/wound improving with ertapenem and wound VAC. He will remain on parenteral ertapenem therapy through April 07. He underwent I&D on 03/29 with drainage of purulent material and debridement down to clean muscle layer,. Now with wound vac in place. MSSA, group B strep, Bacteroides isolated. ID consulted -> recommending ertapenem 1g IV daily x10 days (last dose 04/07). Follow up outpatient with Dr. Dawkins in his office post-discharge (2) Cellulitis of leg without foot, left: Plan: Continue intravenous ertapenem through April 07. MSSA, group B strep, Bacteroides isolated (3) Anemia: Plan: No evidence of GI bleeding. Serial labs. Chronic (4) Diarrhea: Plan: Chronic. Noninfectious. C. difficile negative. Suspect medication-related vs. immunodeficiency related. Continue home Lomotil/Imodium at increased home dosing 3 tabs of each BID. Follow-up with GI as an outpatient. (5) Bipolar 1 disorder: Plan: Stable. Continue Vraylar, lithium, sertraline (6) Human immunodeficiency virus (HIV) disease: Plan: Stable. Continue Biktarvy (7) Generalized anxiety disorder: Plan: Stable. Continue current medical management (8) Peripheral neuropathy: Plan: Stable. Continue pregabalin (9) Restless leg syndrome: Plan: Stable. Continue ropinirole (10) Essential tremor: Plan: Stable. Continue benztropine, [place]edo (11) Sleep apnea: Plan: Stable. Continue CPAP HS (12) Lower back pain: Plan: Chronic. Continue celecoxib Plan Will discharge to SNF facility or [facility] when arrangements are finalized Admission and Anticipated Discharge Date Admission Date: March 26, 2023 Subjective Awake and alert. No new problems. Awaiting SNF placement at either [facility] or [facility] Review of Systems Review of Systems: Constitutional-no fever or chills ENT-no blurred vision, no double vision, no epistaxis, no sore throat Respiratory-no cough, no wheezing, no shortness of breath Cardiac-no palpitations, no chest pain, no syncope GI-no nausea, vomiting, diarrhea, melena, hematochezia -no urinary retention, no urinary incontinence, no dysuria, no hematuria Musculoskeletal-no joint pain, no muscle tenderness Skin-wound VAC in place left lower extremity laterally Neuro-no isolated weakness, no paresthesia, no weakness Psych-no depression, no anxiety Physical Exam Physical Exam: General-alert and oriented x3, no fevers, no chills HEENT-head atraumatic and normocephalic, pupils equal and reactive to light, extraocular muscles intact Neck-no lymphadenopathy or thyromegaly, trachea midline Chest-clear to auscultation percussion. No rales wheezing or rhonchi Cardiac-regular rate and rhythm, normal S1 and S2, no murmurs Abdomen-normal bowel sounds, nontender, no hepatosplenomegaly Extremities-wound VAC in place left lower extremity laterally. Resolving cellulitic changes Neuro-cranial nerves II through XII intact, motor and sensory function within normal limits, strength symmetrical , no focal deficits Psych-normal affect, normal mood Results & Data Results & Data Vital Signs (Past 12 Hours) Vital Signs Temp Pulse Resp BP Pulse Ox O2 Del Method 04/04/23 07:28 36.8 C 48 L 16 131/75 95 Room Air Laboratory Results 03/31/23 06:30 03/31/23 06:30 PG Care Time/CCT Total # of Minutes Spent Total Time Spent with Patient: Total time spent is greater than 50% in coordination of care (as documented) at patient's floor/unit and/or counseling patient: Coding Level of Care Code 97803 SUB INP/OBS CARE 2/35MIN Diagnoses Wound of left leg S81.802A Cellulitis of leg without foot, left L03.116 Anemia D64.9 Diarrhea R19.7 Diarrhea type: unspecified type Bipolar 1 disorder F31.9 Human immunodeficiency virus (HIV) disease B20 Generalized anxiety disorder F41.1 Peripheral neuropathy G62.9 Restless leg syndrome G25.81 Essential tremor G25.0 Sleep apnea G47.30 Lower back pain M54.5 (4) Diarrhea Diarrhea type: unspecified type Qualified Code(s): R19.7 - Diarrhea, unspecified
[2023-04-04] MEDS: ERTAPENEM SODIUM 1,000 MG in SYRINGE 0 ML IV SCH (15:27)
[2023-04-04] MEDS: CARIPRAZINE HCL PO SCH (20:41)
[2023-04-04] MEDS: rOPINIRole HCL 1 MG TABLET PO SCH (20:44)
[2023-04-04] MEDS: ENOXAPARIN INJ 40 MG/0.4 ML SYR SQ SCH (20:45)
[2023-04-05] MEDS: ACETAMINOPHEN 500 MG TAB PO SCH ×3 (05:38→22:54)
[2023-04-05] MEDS: SERTRALINE HCL 100 MG TABLET PO SCH (08:09)
[2023-04-05] MEDS: BENZTROPINE MESYLATE 0.5 MG TAB PO SCH ×2 (08:09→19:56)
[2023-04-05] MEDS: CELECOXIB 100 MG CAP PO SCH (08:09)
[2023-04-05] MEDS: TAMSULOSIN HCL 0.4 MG CAP PO SCH (08:09)
[2023-04-05] MEDS: LITHIUM CARBONATE 300 MG TAB PO SCH ×2 (08:10→19:57)
[2023-04-05] MEDS: DIPHENOXYLATE/ATROPINE 2.5/0.025MG TAB PO SCH ×2 (08:10→19:55)
[2023-04-05] MEDS: ADVANCED PROBIOTIC 1250 MG CAPSULE PO SCH (08:10)
[2023-04-05] MEDS: AUSTEDO 12 MG PO SCH ×2 (08:11→19:54)
[2023-04-05] MEDS: BIKTARVY PO SCH (08:11)
[2023-04-05] MEDS: LOPERAMIDE HCL 2 MG CAP PO SCH ×2 (08:13→20:03)
[2023-04-05] MEDS: PREGABALIN 100 MG CAP PO SCH ×2 (08:13→20:03)
--- NOTE | 2023-04-05 12:06 | Hospitalist Progress Note ---
Date of Service April 05, 2023 Assessment & Plan (1) Wound of left leg: Plan: LLE cellulitis/wound improving with ertapenem and wound VAC. He will remain on parenteral ertapenem therapy through April 07. He underwent I&D on 03/29 with drainage of purulent material and debridement down to clean muscle layer,. Now with wound vac in place. MSSA, group B strep, Bacteroides isolated. ID consulted -> recommending ertapenem 1g IV daily x10 days (last dose 04/07). Follow up outpatient with Dr. Dawkins in his office post-discharge (2) Cellulitis of leg without foot, left: Plan: Continue intravenous ertapenem through April 07. MSSA, group B strep, Bacteroides isolated (3) Anemia: Plan: No evidence of GI bleeding. Serial labs. Chronic (4) Diarrhea: Plan: Chronic. Noninfectious. C. difficile negative. Suspect medication-related vs. immunodeficiency related. Continue home Lomotil/Imodium at increased home dosing 3 tabs of each BID. Follow-up with GI as an outpatient. (5) Bipolar 1 disorder: Plan: Stable. Continue Vraylar, lithium, sertraline (6) Human immunodeficiency virus (HIV) disease: Plan: Stable. Continue Biktarvy (7) Generalized anxiety disorder: Plan: Stable. Continue current medical management (8) Peripheral neuropathy: Plan: Stable. Continue pregabalin (9) Restless leg syndrome: Plan: Stable. Continue ropinirole (10) Essential tremor: Plan: Stable. Continue benztropine, [place]edo (11) Sleep apnea: Plan: Stable. Continue CPAP HS (12) Lower back pain: Plan: Chronic. Continue celecoxib Plan To be determined. He will either go home with home health services or to swing bed status. Admission and Anticipated Discharge Date Admission Date: March 26, 2023 Subjective Stable overall. He is approaching completing his IV antibiotics. It is uncertain whether he will simply go home or go to a swing bed status. Case management is involved. The presence of the left lower extremity wound VAC appears to be the deciding factor at this point Review of Systems Review of Systems: Constitutional-no fever or chills ENT-no blurred vision, no double vision, no epistaxis, no sore throat Respiratory-no cough, no wheezing, no shortness of breath Cardiac-no palpitations, no chest pain, no syncope GI-no nausea, vomiting, diarrhea, melena, hematochezia -no urinary retention, no urinary incontinence, no dysuria, no hematuria Musculoskeletal-no joint pain, no muscle tenderness Skin-wound VAC in place left lower extremity medially Neuro-no isolated weakness, no paresthesia, no weakness Psych-no depression, no anxiety Physical Exam Physical Exam: General-alert and oriented x3, no fevers, no chills HEENT-head atraumatic and normocephalic, pupils equal and reactive to light, extraocular muscles intact Neck-no lymphadenopathy or thyromegaly, trachea midline Chest-clear to auscultation percussion. No rales wheezing or rhonchi Cardiac-regular rate and rhythm, normal S1 and S2, no murmurs Abdomen-normal bowel sounds, nontender, no hepatosplenomegaly Extremities-wound VAC in place left lower extremity medially, excellent granulation tissue noted on the photograph by wound management. Neuro-cranial nerves II through XII intact, motor and sensory function within normal limits, strength symmetrical , no focal deficits Psych-normal affect, normal mood Results & Data Results & Data Vital Signs (Past 12 Hours) Vital Signs Temp Pulse Resp BP Pulse Ox O2 Del Method 04/05/23 07:41 36.7 C 45 L 16 132/78 95 Room Air Laboratory Results 03/31/23 06:30 03/31/23 06:30 PG Care Time/CCT Total # of Minutes Spent Total Time Spent with Patient: Total time spent is greater than 50% in coordination of care (as documented) at patient's floor/unit and/or counseling patient: Coding Level of Care Code 63279 SUB INP/OBS CARE 2/35MIN Diagnoses Wound of left leg S81.802A Cellulitis of leg without foot, left L03.116 Anemia D64.9 Diarrhea R19.7 Diarrhea type: unspecified type Bipolar 1 disorder F31.9 Human immunodeficiency virus (HIV) disease B20 Generalized anxiety disorder F41.1 Peripheral neuropathy G62.9 Restless leg syndrome G25.81 Essential tremor G25.0 Sleep apnea G47.30 Lower back pain M54.5 (4) Diarrhea Diarrhea type: unspecified type Qualified Code(s): R19.7 - Diarrhea, unspecified
[2023-04-05] MEDS: ERTAPENEM SODIUM 1,000 MG in SYRINGE 0 ML IV SCH (15:30)
[2023-04-05] MEDS: CARIPRAZINE HCL PO SCH (19:54)
[2023-04-05] MEDS: ENOXAPARIN INJ 40 MG/0.4 ML SYR SQ SCH (19:55)
[2023-04-05] MEDS: rOPINIRole HCL 1 MG TABLET PO SCH (20:03)
[2023-04-05] MEDS: hydrOXYzine HCl 25 MG TAB PO PRN (22:54)
[2023-04-06] MEDS: ACETAMINOPHEN 500 MG TAB PO SCH ×3 (06:18→22:14)
[2023-04-06] MEDS: BENZTROPINE MESYLATE 0.5 MG TAB PO SCH ×2 (09:02→20:13)
[2023-04-06] MEDS: CELECOXIB 100 MG CAP PO SCH (09:03)
[2023-04-06] MEDS: BIKTARVY PO SCH (09:03)
[2023-04-06] MEDS: DIPHENOXYLATE/ATROPINE 2.5/0.025MG TAB PO SCH ×2 (09:04→20:13)
[2023-04-06] MEDS: AUSTEDO 12 MG PO SCH ×2 (09:04→20:13)
[2023-04-06] MEDS: ADVANCED PROBIOTIC 1250 MG CAPSULE PO SCH (09:05)
[2023-04-06] MEDS: LITHIUM CARBONATE 300 MG TAB PO SCH ×2 (09:05→20:13)
[2023-04-06] MEDS: SERTRALINE HCL 100 MG TABLET PO SCH (09:07)
[2023-04-06] MEDS: TAMSULOSIN HCL 0.4 MG CAP PO SCH (09:08)
[2023-04-06] MEDS: LOPERAMIDE HCL 2 MG CAP PO SCH ×2 (09:15→20:13)
[2023-04-06] MEDS: oxyCODONE HCL IR 5 MG TAB (IMMEDIATE RELEASE) PO PRN (09:15)
[2023-04-06] MEDS: PREGABALIN 100 MG CAP PO SCH ×2 (09:16→20:13)
[2023-04-06 10:38] LABS: Basophils # (auto) 0.03 K/uL (0-0.2); Basophils % (auto) 0.6 %; Hematocrit (blood only) 33.8 % (42.0-52.0); Hemoglobin 10.2 g/dl (14.0-18.0); Lymphocytes # (auto) 1.43 K/uL (1.2-3.4); Lymphocytes % (auto) 28.4 %; Mean Corpuscular Hemoglobin 25.4 pg (25.0-34.0); Mean Corpuscular Hgb Conc 30.2 g/dL (32.0-36.0); Mean Corpuscular Volume 84.1 fL (80.0-100.0); Mean Platelet Volume 11.9 fL (9.4-12.4); Monocytes # (auto) 0.31 K/uL (0.11-0.59); Monocytes % (auto) 6.2 %; Neutrophils # (auto) 3.06 K/uL (1.40-6.50); Neutrophils % (auto) 60.8 %; Platelet Count 181 K/uL (130-400); RDW Coefficient of Variation 14.4 % (11.5-14.5); RDW Standard Deviation 44.4 fL (36.4-46.3); Red Blood Count 4.02 M/uL (4.70-6.10); White Blood Count 5.03 K/ul (4.8-10.8)
[2023-04-06 10:51] LABS: Creatinine Clr Calc Pharmacy 101.5 ml/min; Est GFR (African American) 91.1 ml/min; Est GFR (Non-African American) 78.6 ml/min
--- NOTE | 2023-04-06 15:13 | Hospitalist Progress Note ---
Date of Service April 06, 2023 Assessment & Plan (1) Wound of left leg: Plan: LLE cellulitis/wound improving with ertapenem and wound VAC. He will remain on parenteral ertapenem therapy through April 07. He underwent I&D on 03/29 with drainage of purulent material and debridement down to clean muscle layer,. Now with wound vac in place. MSSA, group B strep, Bacteroides isolated. ID consulted -> recommending ertapenem 1g IV daily x10 days (last dose 04/07). Follow up outpatient with Dr. Dawkins in his office post-discharge (2) Cellulitis of leg without foot, left: Plan: Continue intravenous ertapenem through April 07. MSSA, group B strep, Bacteroides isolated (3) Anemia: Plan: No evidence of GI bleeding. Serial labs. Chronic (4) Diarrhea: Plan: Chronic. Noninfectious. C. difficile negative. Suspect medication-related vs. immunodeficiency related. Continue home Lomotil/Imodium at increased home dosing 3 tabs of each BID. Follow-up with GI as an outpatient. (5) Bipolar 1 disorder: Plan: Stable. Continue Vraylar, lithium, sertraline (6) Human immunodeficiency virus (HIV) disease: Plan: Stable. Continue Biktarvy (7) Generalized anxiety disorder: Plan: Stable. Continue current medical management (8) Peripheral neuropathy: Plan: Stable. Continue pregabalin (9) Restless leg syndrome: Plan: Stable. Continue ropinirole (10) Essential tremor: Plan: Stable. Continue benztropine, [place]edo (11) Sleep apnea: Plan: Stable. Continue CPAP HS (12) Lower back pain: Plan: Chronic. Continue celecoxib Plan He will complete his intravenous antibiotics on April 07 and then be discharged to home with home health services and home wound care and the wound VAC on April 08 Admission and Anticipated Discharge Date Admission Date: March 26, 2023 Subjective Alert and oriented. No new problems. He will complete his antibiotic therapy tomorrow. Probably discharge to home April 08 with home health services and wound care services at home along with the wound VAC Review of Systems Review of Systems: Constitutional-no fever or chills ENT-no blurred vision, no double vision, no epistaxis, no sore throat Respiratory-no cough, no wheezing, no shortness of breath Cardiac-no palpitations, no chest pain, no syncope GI-no nausea, vomiting, diarrhea, melena, hematochezia -no urinary retention, no urinary incontinence, no dysuria, no hematuria Musculoskeletal-no joint pain, no muscle tenderness Skin-wound VAC in place left lower extremity medially Neuro-no isolated weakness, no paresthesia, no weakness Psych-no depression, no anxiety Physical Exam Physical Exam: General-alert and oriented x3, no fevers, no chills HEENT-head atraumatic and normocephalic, pupils equal and reactive to light, extraocular muscles intact Neck-no lymphadenopathy or thyromegaly, trachea midline Chest-clear to auscultation percussion. No rales wheezing or rhonchi Cardiac-regular rate and rhythm, normal S1 and S2, no murmurs Abdomen-normal bowel sounds, nontender, no hepatosplenomegaly Extremities-wound VAC in place left lower extremity medially, excellent granulation tissue noted on the photograph by wound management. Neuro-cranial nerves II through XII intact, motor and sensory function within normal limits, strength symmetrical , no focal deficits Psych-normal affect, normal mood Results & Data Results & Data Vital Signs (Past 12 Hours) Vital Signs Temp Pulse Resp BP Pulse Ox O2 Del Method 04/06/23 14:43 36.9 C 54 L 17 107/63 96 Room Air 04/06/23 07:05 36.6 C 49 L 16 123/63 94 Room Air Laboratory Results 04/06/23 10:12 04/06/23 10:12 PG Care Time/CCT Total # of Minutes Spent Total Time Spent with Patient: Total time spent is greater than 50% in coordination of care (as documented) at patient's floor/unit and/or counseling patient: Coding Level of Care Code 76840 SUB INP/OBS CARE 2/35MIN Diagnoses Wound of left leg S81.802A Cellulitis of leg without foot, left L03.116 Anemia D64.9 Diarrhea R19.7 Diarrhea type: unspecified type Bipolar 1 disorder F31.9 Human immunodeficiency virus (HIV) disease B20 Generalized anxiety disorder F41.1 Peripheral neuropathy G62.9 Restless leg syndrome G25.81 Essential tremor G25.0 Sleep apnea G47.30 Lower back pain M54.5 (4) Diarrhea Diarrhea type: unspecified type Qualified Code(s): R19.7 - Diarrhea, unspecified
[2023-04-06] MEDS: ERTAPENEM SODIUM 1,000 MG in SYRINGE 0 ML IV SCH (16:45)
[2023-04-06] MEDS: CARIPRAZINE HCL PO SCH (20:13)
[2023-04-06] MEDS: rOPINIRole HCL 1 MG TABLET PO SCH (20:13)
[2023-04-06] MEDS: ENOXAPARIN INJ 40 MG/0.4 ML SYR SQ SCH (22:14)
[2023-04-07] MEDS: ACETAMINOPHEN 500 MG TAB PO SCH ×3 (05:26→21:48)
[2023-04-07] MEDS: BENZTROPINE MESYLATE 0.5 MG TAB PO SCH ×2 (08:27→20:19)
[2023-04-07] MEDS: BIKTARVY PO SCH (08:27)
[2023-04-07] MEDS: CELECOXIB 100 MG CAP PO SCH (08:27)
[2023-04-07] MEDS: AUSTEDO 12 MG PO SCH ×2 (08:27→20:19)
[2023-04-07] MEDS: DIPHENOXYLATE/ATROPINE 2.5/0.025MG TAB PO SCH ×2 (08:28→20:18)
[2023-04-07] MEDS: ADVANCED PROBIOTIC 1250 MG CAPSULE PO SCH (08:28)
[2023-04-07] MEDS: LITHIUM CARBONATE 300 MG TAB PO SCH ×2 (08:28→20:18)
[2023-04-07] MEDS: SERTRALINE HCL 100 MG TABLET PO SCH (08:28)
[2023-04-07] MEDS: TAMSULOSIN HCL 0.4 MG CAP PO SCH (08:29)
[2023-04-07] MEDS: PREGABALIN 100 MG CAP PO SCH ×2 (08:33→20:25)
[2023-04-07] MEDS: LOPERAMIDE HCL 2 MG CAP PO SCH ×2 (08:33→20:25)
--- NOTE | 2023-04-07 14:43 | Hospitalist Progress Note ---
Date of Service April 07, 2023 Assessment & Plan (1) Wound of left leg: Plan: LLE cellulitis/wound improving with ertapenem and wound VAC. He will remain on parenteral ertapenem therapy through April 07. He underwent I&D on 03/29 with drainage of purulent material and debridement down to clean muscle layer,. Now with wound vac in place. MSSA, group B strep, Bacteroides isolated. ID consulted -> recommending ertapenem 1g IV daily x10 days (last dose today, 04/07). Follow up outpatient with Dr. Dawkins in his office post-discharge (2) Cellulitis of leg without foot, left: Plan: Continue intravenous ertapenem through today, April 07. MSSA, group B strep, Bacteroides isolated (3) Anemia: Plan: No evidence of GI bleeding. Serial labs. Chronic (4) Diarrhea: Plan: Chronic. Noninfectious. C. difficile negative. Suspect medication-related vs. immunodeficiency related. Continue home Lomotil/Imodium at discharge . Follow- up with GI as an outpatient. (5) Bipolar 1 disorder: Plan: Stable. Continue Vraylar, lithium, sertraline (6) Human immunodeficiency virus (HIV) disease: Plan: Stable. Continue Biktarvy (7) Generalized anxiety disorder: Plan: Stable. Continue current medical management (8) Peripheral neuropathy: Plan: Stable. Continue pregabalin (9) Restless leg syndrome: Plan: Stable. Continue ropinirole (10) Essential tremor: Plan: Stable. Continue benztropine, Austedo (11) Sleep apnea: Plan: Stable. Continue CPAP HS (12) Lower back pain: Plan: Chronic. Continue celecoxib Plan Home tomorrow, April 08, with home health services and the wound VAC and home wound care Admission and Anticipated Discharge Date Admission Date: March 26, 2023 Subjective Alert and oriented. No new problems. Antibiotic therapy will finish today. He probably will go home with home health services and wound care services t omorrowApril 08 Review of Systems Review of Systems: Constitutional-no fever or chills ENT-no blurred vision, no double vision, no epistaxis, no sore throat Respiratory-no cough, no wheezing, no shortness of breath Cardiac-no palpitations, no chest pain, no syncope GI-no nausea, vomiting, diarrhea, melena, hematochezia -no urinary retention, no urinary incontinence, no dysuria, no hematuria Musculoskeletal-no joint pain, no muscle tenderness Skin-wound VAC in place left lower extremity medially Neuro-no isolated weakness, no paresthesia, no weakness Psych-no depression, no anxiety Physical Exam Physical Exam: General-alert and oriented x3, no fevers, no chills HEENT-head atraumatic and normocephalic, pupils equal and reactive to light, extraocular muscles intact Neck-no lymphadenopathy or thyromegaly, trachea midline Chest-clear to auscultation percussion. No rales wheezing or rhonchi Cardiac-regular rate and rhythm, normal S1 and S2, no murmurs Abdomen-normal bowel sounds, nontender, no hepatosplenomegaly Extremities-wound VAC in place left lower extremity medially, excellent granulation tissue noted on the photograph by wound management. Neuro-cranial nerves II through XII intact, motor and sensory function within normal limits, strength symmetrical , no focal deficits Psych-normal affect, normal mood Results & Data Results & Data Vital Signs (Past 12 Hours) Vital Signs Temp Pulse Resp BP Pulse Ox O2 Del Method 04/07/23 14:39 36.9 C 64 17 130/74 95 Room Air 04/07/23 07:12 36.9 C 51 L 16 137/71 99 Room Air Laboratory Results 04/06/23 10:12 04/06/23 10:12 PG Care Time/CCT Total # of Minutes Spent Total Time Spent with Patient: Total time spent is greater than 50% in coordination of care (as documented) at patient's floor/unit and/or counseling patient: Coding Level of Care Code 99602 SUB INP/OBS CARE 2/35MIN Diagnoses Wound of left leg S81.802A Cellulitis of leg without foot, left L03.116 Anemia D64.9 Diarrhea R19.7 Diarrhea type: unspecified type Bipolar 1 disorder F31.9 Human immunodeficiency virus (HIV) disease B20 Generalized anxiety disorder F41.1 Peripheral neuropathy G62.9 Restless leg syndrome G25.81 Essential tremor G25.0 Sleep apnea G47.30 Lower back pain M54.5 (4) Diarrhea Diarrhea type: unspecified type Qualified Code(s): R19.7 - Diarrhea, unspecified
[2023-04-07] MEDS: ERTAPENEM SODIUM 1,000 MG in SYRINGE 0 ML IV SCH (16:10)
[2023-04-07] MEDS: rOPINIRole HCL 1 MG TABLET PO SCH (20:18)
[2023-04-07] MEDS: CARIPRAZINE HCL PO SCH (20:19)
[2023-04-07] MEDS: ENOXAPARIN INJ 40 MG/0.4 ML SYR SQ SCH (21:49)
[2023-04-08] MEDS: ACETAMINOPHEN 500 MG TAB PO SCH (06:02)
[2023-04-08] MEDS: ADVANCED PROBIOTIC 1250 MG CAPSULE PO SCH (08:38)
[2023-04-08] MEDS: SERTRALINE HCL 100 MG TABLET PO SCH (08:38)
[2023-04-08] MEDS: PREGABALIN 100 MG CAP PO SCH (08:38)
[2023-04-08] MEDS: TAMSULOSIN HCL 0.4 MG CAP PO SCH (08:39)
[2023-04-08] MEDS: CELECOXIB 100 MG CAP PO SCH (08:39)
[2023-04-08] MEDS: BIKTARVY PO SCH (08:39)
[2023-04-08] MEDS: LITHIUM CARBONATE 300 MG TAB PO SCH (08:39)
[2023-04-08] MEDS: AUSTEDO 12 MG PO SCH (08:39)
[2023-04-08] MEDS: DIPHENOXYLATE/ATROPINE 2.5/0.025MG TAB PO SCH (08:39)
[2023-04-08] MEDS: BENZTROPINE MESYLATE 0.5 MG TAB PO SCH (08:39)
[2023-04-08] MEDS: LOPERAMIDE HCL 2 MG CAP PO SCH (08:43)
--- NOTE | 2023-04-08 11:34 | Discharge Summary ---
Date of Service April 08, 2023 Admission HPI Per Admitting Provider 57 yo male with PMHx of HIV, RLS, peripheral neuropathy, essential tremor, dyskinesia, anxiety, bipolar, chronic low back pain, and recent extravasating hematoma presents with L lower extremity infection. About 1 month ago pt developed a LLE hematoma from trauma to leg. This developed into a leg wound requiring I&D. He was discharged from [facility] 1-2 wks ago and has been following with wound care at home. He did have a wound vac in place which was held off today due to concern for infection. He does state the surrounding wound has been warm and increasingly painful over the past few days with exacerbation of pain when ambulating. Denies chest pain, sob, cough, abd pain, N/V, dysuria. He has not been on abx in the outpatient setting. Of note, pt does report having MRSA skin infections in the past when he was in [place]. He also has a h/o of HIV, states his viral load 1 month ago was undetectable but is unsure about his CD4 count. Principal Diagnosis Infected medial left lower leg hematoma, status post incision and drainage with remaining open wound Discharge Exam General-alert and oriented x3, no fevers, no chills HEENT-head atraumatic and normocephalic, pupils equal and reactive to light, extraocular muscles intact Neck-no lymphadenopathy or thyromegaly, trachea midline Chest-clear to auscultation percussion. No rales wheezing or rhonchi Cardiac-regular rate and rhythm, normal S1 and S2, no murmurs Abdomen-normal bowel sounds, nontender, no hepatosplenomegaly Extremities-wound VAC in place left lower extremity medially, excellent granulation tissue noted on the photograph by wound management. Neuro-cranial nerves II through XII intact, motor and sensory function within normal limits, strength symmetrical , no focal deficits Psych-normal affect, normal mood Discharge Data Allergies Allergy/AdvReac Type Severity Reaction Status Date / Time mercury (elemental) Allergy Intermediate Facial Verified 03/26/23 16:59 swelling, Nausea/Vomiting strawberry Allergy Intermediate rash Verified 03/26/23 16:59 Fish Containing Products Allergy Verified 03/27/23 11:59 fish derived Allergy Verified 03/27/23 11:59 fish oil Allergy Verified 03/27/23 11:59 shrimp AdvReac Intermediate ALL Verified 03/26/23 16:59 SEAFOOD D/T MERCURY RELATED. doxepin AdvReac Unknown CAN'T Verified 03/26/23 16:59 REMEMBER TOO LONG AGO Consultations 03/26/23 18:28 ED Decision to Admit Stat 03/27/23 08:38 Consult General Surgery Routine 03/27/23 09:08 Consult Infectious Diseases Routine Procedures Performed Operation Date: 03/28/23 07:30 Actual Procedures p Incision and Drainage with Debridement of Left Lower Extremity(Left) - Rios Dawkins, Ordered Studies 03/26/23 14:17 CT leg [CT tib/fib LT w con] Stat Hospital Course (1) Wound of left leg: LLE cellulitis/wound improving with ertapenem and wound VAC. He has completed intravenous ertapenem therapy through April 07. He underwent I&D on 03/29 with drainage of purulent material and debridement down to clean muscle layer,. Now with wound vac in place. MSSA, group B strep, Bacteroides isolated. ID consulted -> recommending ertapenem 1g IV daily x10 days (last dose given on 04/07). Follow up outpatient with Dr. Dawkins in his office post-discharge. No ongoing antibiotic therapy at discharge (2) Cellulitis of leg without foot, left: Completed ertapenem through April 07. MSSA, group B strep, Bacteroides isolated (3) Anemia: No evidence of GI bleeding. Serial labs. Chronic (4) Diarrhea: Chronic. Noninfectious. C. difficile negative. Suspect medication-related vs. immunodeficiency related. Continue home Lomotil/Imodium at discharge . Follow- up with GI as an outpatient. (5) Bipolar 1 disorder: Stable. Continue Vraylar, lithium, sertraline (6) Human immunodeficiency virus (HIV) disease: Stable. Continue Biktarvy (7) Generalized anxiety disorder: Stable. Continue current medical management (8) Peripheral neuropathy: Stable. Continue pregabalin (9) Restless leg syndrome: Stable. Continue ropinirole (10) Essential tremor: Stable. Continue benztropine, Austedo (11) Sleep apnea: Stable. Continue CPAP HS (12) Lower back pain: Chronic. Continue celecoxib Plan Home today, April 08, with home health services and the wound VAC and home wound care Total Time Total Time Spent Total Time Spent (In Minutes): 45 minutes Discharge Plan Discharge Items Patient Disposition: Home - Home Health Services Reason For Visit: L LEG INFECTION Discharge Diagnosis: Infected hematoma left medial lower leg, status post incision and drainage with remaining open wound healing by secondary intention Activity: Resume your previous activity Non-emergency contact: Primary Care Provider and Surgeon Call non-emergency contact if: your symptoms worsen Follow-up/Referrals: [facility] [Other] - 04/11/23 1:20 pm Felicity Colon MD [Primary Care Provider] - Diet: Regular and Heart Healthy Addtl Attending Provider Instructions: Duration of wound VAC to be determined by surgeon and wound care management Pending Studies at Discharge: No Stand-Alone Forms: My [employer], Smoking Cessation Medications and DC Order Prescriptions: New Advanced Probiotic 625 mg (10 billion cell) Capsule 2 cap PO DAILY Qty: 30 0RF Continued ketoconazole 2 % shampoo 1 applic TOP .COMPLEX Qty: 120 5RF Rx Instructions: 1 applic TOP Wash scalp twice weekly as directed. Let sit 3-5 minutes prior to rinsing.; hydrochlorothiazide 25 mg tablet 25 mg PO QAM PRN (Reason: Fluid Retention) Qty: 90 1RF pregabalin 300 mg capsule 300 mg PO BID 30 Days Qty: 60 5RF Hold Instructions: not takes cyanocobalamin (vitamin B-12) 1,000 mcg tablet, sublingual 1,000 mcg sublingual QAM Qty: 90 1RF ropinirole 3 mg tablet 3 mg PO QPM Qty: 30 1RF cholecalciferol (vitamin D3) 125 mcg (5,000 unit) capsule 125 mcg PO DAILY Qty: 90 3RF ketoconazole 2 % cream 1 applic topical DAILY Qty: 30 2RF Rx Instructions: Apply to areas of the face once daily as directed. benztropine 0.5 mg tablet 0.5 mg PO BID Qty: 60 2RF Vitron-C 65 mg iron- 125 mg tablet,delayed release (DR/EC) 1 tab PO DAILY Qty: 60 6RF sumatriptan succinate [Imitrex] 100 mg tablet 100 mg PO .COMPLEX PRN (Reason: migraine headache) 30 Days Qty: 9 1RF Rx Instructions: take one at onset of headache, may repeat in 2 hours prn, limit 2-3 days / week PRN diphenoxylate-atropine [Lomotil] 2.5-0.025 mg tablet 1 tab PO TID PRN (Reason: diarrhea) Qty: 90 1RF hydrocortisone 2.5 % cream 1 applic TOP DAILY PRN (Reason: SKIN IRRITATION NEEDED) Rx Instructions: Apply to areas of the face daily for up to 7 days as needed for flaring. Biktarvy 50-200-25 mg tablet 1 tab PO QAM Qty: 30 2RF hydroxyzine HCl 25 mg tablet 25 mg PO DIRECTED PRN (Reason: NEEDED) Vraylar 1.5 mg capsule 1.5 mg PO DAILY Qty: 30 2RF sertraline [Zoloft] 25 mg tablet 200 mg PO DAILY propranolol 20 mg tablet 20 mg PO BID Qty: 60 3RF Hold Instructions: PT WAS TOLD TO HOLD AFTER [facility] 02/19/23 Rx Instructions: ON HOLD Austedo 12 mg tablet 12 mg PO BID tamsulosin 0.4 mg capsule 0.4 mg PO DAILY Qty: 90 3RF celecoxib 100 mg capsule 100 mg PO QAM Rx Instructions: ON HOLD lithium carbonate 300 mg capsule See Rx Instructions .ROUTE .COMPLEX Rx Instructions: TAKES 300 MG QAM, THEN 600 MG QPM. acetaminophen [Acetaminophen Extra Strength] 500 mg Tablet 500 mg PO Q6H PRN (Reason: Pain) methocarbamol 750 mg tablet 750 mg PO TID PRN (Reason: MUSCLE SPASMS) Rx Instructions: ON HOLD loperamide [Imodium] 2 mg Capsule 2 mg PO TID PRN (Reason: Diarrhea) Discharge Orders: Discharge Order (Routine); Ordered 04/08/23 Ordered By: Orion Boudreaux Admission Data Admit Date/Time: 03/26/23 19:42 Attending Provider: Orion Boudreaux Admit Provider: Manjinder Dover Primary Care Provider: Felicity Colon V. Other Providers: Kevan Siegel ; Rios Dawkins ; Annette Valdez ; Kosta Stone ; Chioma Chin ; Jeniffer Lopez ; Erica Saldaña ; Ruthie Warren ; Kallie Fox ; Karyna Frank ; Dominique Briseno ; [place] Coding Level of Care Code 15607 INP/OBS DISCH >30 MIN Diagnoses Wound of left leg S81.802A Cellulitis of leg without foot, left L03.116 Anemia D64.9 Diarrhea R19.7 Diarrhea type: unspecified type Bipolar 1 disorder F31.9 Human immunodeficiency virus (HIV) disease B20 Generalized anxiety disorder F41.1 Peripheral neuropathy G62.9 Restless leg syndrome G25.81 Essential tremor G25.0 Sleep apnea G47.30 Lower back pain M54.5
[2023-04-08] MEDS: oxyCODONE HCL IR 5 MG TAB (IMMEDIATE RELEASE) PO PRN (12:56)
--- NOTE | 2023-04-15 10:38 | Coding Query ---
DEBRIDEMENT DOCUMENTATION To promote full compliance with coding requirements relating to patient care, physician participation is requested in all cases of muck operator uncertainty. Please assist us with the question(s) below: Please place an X in the parenthesis (x). If other, please document the finding: Type of Debridement: (x ) Excisional Debridement- Cutting away necrotic, devitalized tissue or slough to the level of viable tissue using a sharp instrument (i.e. scalpel, scissors, etc.) ( ) Non Excisional Debridement- The removal of necrotic, devitalized tissue or slough by means of scraping, mechanical brushing, flushing, or washing (i.e. irrigation,whirlpool);minor removal of loose fragments. ( ) Other (please specify): Instrument Used: ( ) Scissors ( ) Scalpel ( ) Curette (x ) Other (please specify): Electrocautery Depth of Debridement: ( ) Skin ( ) Skin and Subcutaneous Tissue (x ) Skin, Subcutaneous Tissue and Muscle ( ) Skin, Subcutaneous Tissue, Muscle and Bone ( ) Other (please specify): Please Specify the Size of Debridement in cm2: Thank you Sharla POMPA
== END 2023-04-08 14:55 | disposition home health service (06) | DRG 581 ==
LOC: ED 14:02 → 3W 19:42 → SUATTDRO 19:42 → 3W 23:23

== ENCOUNTER 2023-08-30 10:59 | Inpatient (IN) ==
[2023-08-30] MEDS ORDERED: OPTIRAY 320 125ml IV ONE (11:29)
--- NOTE | 2023-08-30 11:32 | CT Scan Report ---
HEAD CT NONCONTRAST CT DOSE: HISTORY: Slurred speech. Confusion. neuro deficit, acute stroke suspected TECHNIQUE: Multiaxial CT images of the head were performed without the use of intravenous contrast. A utomated exposure control was utilized for this study. A dose lowering technique was utilized adheri ng to the principles of ALARA. Comparison: Head CT 06/21/2017. Findings: Moderate mucosal thickening within the maxillary sinuses with a trace fluid level within th e left maxillary sinus. There is partial opacification of the ethmoid air cells. This has progressed in the interval. The mastoid air cells are clear. The calvarium and skull base are intact. The ventri cles and sulci are within normal limits. There is no mass, hematoma, midline shift, or acute infarct. Impression: No acute intracranial abnormality. Sinus disease as described above. ACT 112: Negative or not required by law. Electronically signed by: Rajendra Diaz M.D. 08/30/2023 11:30 AM
--- NOTE | 2023-08-30 11:44 | CT Scan Report ---
CTA ANGIOGRAPHY OF THE HEAD CLINICAL HISTORY: Neuro deficit, acute stroke suspected. Slurred speech. COMPARISON STUDY: MRI of the brain June 06, 2022. TECHNIQUE: Helical axial images of the head were obtained following uneventful intravenous administr ation of 115 cc of Optiray. Sagittal and coronal reconstructions were viewed as well as maximal inten sity projections on an independent 3-D workstation. Automated exposure control was utilized for the study. A dose lowering technique was utilized adhering to the principles of ALARA. FINDINGS: No acute intracranial hemorrhage was identified on the head CT which will be reported separ ately. Ventricular system is normal. Basal cisterns are patent. There are no extra-axial collections. Extensive ethmoid sinus mucosal thickening are present. Small air-fluid levels within the frontal si nuses are present. Small air-fluid level within the left maxillary sinus is present. There is moderat e polypoid mucosal thickening of the maxillary sinuses. There is mild mucosal thickening of the sphen oid sinuses. The bilateral M1, M2, A1 and A2 segments are patent. No vessel occlusion is identified. Left vertebral artery ends in PICA. There is persistence of the left posterior cerebral artery. There is a large right posterior communicating artery. IMPRESSION: 1. No large vessel occlusion. No intracranial aneurysm. 2. Paranasal sinus opacification, as above. ACT 112: Negative or not required by law. Electronically signed by: Dwight Hercules M.D. 08/30/2023 11:42 AM
--- NOTE | 2023-08-30 11:47 | CT Scan Report ---
CT abd pelvis IV con only CLINICAL HISTORY: RLQ pain TECHNIQUE: Helical axial images of the abdomen and pelvis were obtained and displayed. Automated dose lowering techniques and/or adjustment according to patient size were utilized for this exam. This e xam was performed with intravenous contrast. COMPARISON: Comparison is made to CT abdomen pelvis 05/10/2014 FINDINGS: Lower chest: Cardiomegaly is partially visualized. Liver: Unremarkable. No focal lesions are seen. Gallbladder and biliary tree: Patient is status post cholecystectomy. No intra- or extrahepatic bilia ry ductal dilation. Pancreas: Unremarkable, no focal lesions. Spleen: Unremarkable. Adrenals: Right lipid rich adenoma is seen. Kidneys and ureters: Right renal cyst is seen. Bladder: Unremarkable. Reproductive organs: Unremarkable. Bowel: The appendix is normal. Patient is status post gastric surgery and there is a small hiatal her ceci. Lymph nodes Retroperitoneal: Unremarkable. Pelvic: Unremarkable. Mesenteric: Unremarkable. Peritoneum: Normal. Vessels: Unremarkable. Abdominal wall: Unremarkable. Bones: Degenerative changes in the visualized spine. IMPRESSION: 1. No acute abnormalities to explain right lower quadrant pain, in particular the appendix is unrema rkable and there is no evidence of hydronephrosis or obstructive stone. 2. Postsurgical changes of gastric bypass. 3. Additional findings as above. ACT 112: Negative or not required by law. Electronically signed by: Leon Mondragon M.D. 08/30/2023 11:46 AM
--- NOTE | 2023-08-30 11:56 | Emergency Department Note ---
Impression & Plan Abnormal EKG, Abdominal pain, Elevated troponin I level, Respiratory syncytial virus (RSV), Stroke-like symptom, Pneumonia ED Provider Note NAME: STIVEN GRIGGS AGE: 58 SEX: M : 1965 ARRIVES VIA: Walk-In INFORMANT: Patient, the patient's family member ED PROVIDER(S): Sal Henriquez DO CHIEF COMPLAINT: Stroke alert HPI: The patient is a 58-year-old male who presented to the emergency department for an evaluation of strokelike symptoms. Reportedly the patient was having slurred speech and some degree of confusion. He was made a stroke alert in triage. The patient was taken directly to CT. I evaluated the patient and CT after he had already had CT of the brain. On my evaluation the patient states he been having problems with abdominal pain over the course the last 24 hours. He denies having any cough. He does complain of a headache. He denies having any nausea or vomiting. The patient denies having any leg swelling or leg pain. The patient has a long past medical history. His last known well time was yesterday evening because at the last time the family member had talked to him on the phone. ROS: See above HPI for pertinent positives & negatives. A total of 10 systems reviewed and were otherwise negative. PAST MEDICAL HISTORY: See Below PAST SURGICAL HISTORY: See Below FAMILY HISTORY: See Below SOCIAL HISTORY: See Below HOME MEDICATIONS: See Below ALLERGIES: See Below VITALS: See Below PHYSICAL EXAMINATION: GENERAL: Patient is awake alert in no acute distress patient is resting comfortably and showing no signs of anxiety EYES: The conjunctivae are clear. The pupils are round and reactive. EARS, NOSE, MOUTH AND THROAT: The nose is without any evidence of any deformity. NECK: The neck is nontender and supple. RESPIRATORY: Normal respiratory effort is noted there is no evidence of wheezing rhonchi or rales CARDIOVASCULAR: Regular rate and rhythm noted there no murmurs rubs or gallops normal S1 normal S2. GASTROINTESTINAL: The abdomen is soft and mildly distended. There is right- sided tenderness to palpation which is moderate. MUSCULOSKELETAL/EXTREMITIES: There is no evidence of gross deformity full range of motion is noted in the hips and shoulders. SKIN: There is no obvious evidence of any rash. There are no petechiae, pallor or cyanosis noted. NEUROLOGIC: Patient is awake and oriented to person and place. Speech was somewhat dysarthric and slurred. Strength was diminished but symmetric. The patient is able to hold each leg off the bed for greater than 5 seconds. 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 Choreiform movements were noted with the mouth. MEDICAL DECISION MAKING: The patient is a 58-year-old male who presented to the emergency department through triage. Initially the patient was having slurred speech and appeared to be confused. There was thoughts that he was having a stroke. His family member that came with him had last talked to him yesterday. She knew that he was in his normal state of health at that time. The patient was evaluated over in CAT scan. He appeared to have complaints of abdominal pain as well as cough. He was having some chest pain. The patient's EKG was very abnormal. Chest x-ray revealed possible pneumonia this was also noted on CT of the cervical spine when they did the angiography of the neck. I discussed the patient's laboratory and radiographic studies with him and his family members. Given his findings I discussed his condition with the on-call [facility] hospitalist. He was treated with aspirin in the emergency department. He was also treated with IV antibiotics for possible pneumonia. He does not appear to be septic at this time and his presentation is somewhat confusing. For this reason I do feel the patient would be a better candidate for inpatient management. Triage Nursing notes reviewed. Prior medical records reviewed Vital Signs: reviewed and remarkable for elevated blood pressure. Differential diagnosis: Infection, dehydration, metabolic abnormality, hypo/hyperglycemia, electrolyte disturbance, anemia, hypoxia, cardiac sources, intracerebral event, toxicologic, neurologic, as well as other pathologies. ER treatment provided: See below Diagnostics interpreted by me: ECG: EKG was obtained in the emergency department. Interpretation is sinus bradycardia at 44 bpm. There is no ectopy. Diffuse T wave versions were noted in the anterior and low lateral leads. This was compared to a tracing from June 21, 2023. The changes are new compared to previous Cardiac Monitoring: An order was placed for continuous cardiac monitoring. The monitor shows a rate of 46 bpm with sinus bradycardia. Laboratory studies: As stated above and show below. Imaging studies: See below. Radiographic imaging was reviewed by myself Consultation(s): I discussed this case with Dr. Haines Past Med/Surg History Medical History Lightheadedness Shortness of breath Chest pain Surgical wound, non healing Wound cellulitis Cellulitis of leg without foot, left Hematoma of left lower leg Pain and swelling of left lower extremity Leg edema Tiredness Methamphetamine abuse Left knee sprain Traumatic hematoma of left lower leg Diarrhea Dyskinesia of mouth Obesity Thoracic back pain Lumbar pain Cervical pain Lower back pain Sleep apnea Inguinal lymphadenitis Essential tremor Nodule of groin Family history of melanoma Restless leg syndrome Peripheral neuropathy Bipolar disorder Leg swelling Esophageal reflux Generalized anxiety disorder Human immunodeficiency virus (HIV) disease Dx around 2001 - 2002 Spondylosis of cervical region without myelopathy or radiculopathy Vitamin B12 deficiency Vitamin D deficiency disease Depression Bipolar 1 disorder Kidney stones Surgical History History of incision and drainage (03/28/23) Incision and Drainage with Debridement of Left Lower Extremity(Left) - Rios Dawkins DO S/P cholecystectomy S/P gastric surgery Status post gastric bypass for obesity Family History Mother Diabetes Systemic lupus erythematosus Father Melanoma Myocardial infarction Prostate cancer Other Ulcerative colitis Denies family history of Ovarian cancer Crohn's disease Breast cancer Colorectal cancer Irritable bowel syndrome Social History Smoking Status: Never smoker Do You Dip or Chew Tobacco: No; Hx Alcohol Use: No Hx Substance Use: No Preferred Language: Martiniquais Communication Ability: Effective Visual Impairment: No Limitations Hearing Ability: Normal Marina Manager Required: No Beliefs That Will Affect Care: None marital status: Current Living Situation: Family Current Living Situation Comment: lives with spouse and in-laws in 2 story home current occupational status: disabled Feels Safe at Home: Yes Diet: regular caffeine: Yes Dental Care, Regularly: Yes Physical Activity Frequency: Daily Seatbelt Use: always Sunscreen Use: No Assistive Devices: CPAP and Other Allergies Allergies Allergy/AdvReac Type Severity Reaction Status Date / Time mercury (elemental) Allergy Intermediate Facial Verified 08/29/23 11:22 swelling, Nausea/Vomiting strawberry Allergy Intermediate rash Verified 08/29/23 11:22 Fish Containing Products Allergy Verified 08/29/23 11:22 fish derived Allergy Verified 08/29/23 11:22 fish oil Allergy Verified 08/29/23 11:22 shrimp AdvReac Intermediate ALL Verified 08/29/23 11:22 SEAFOOD D/T MERCURY RELATED. doxepin AdvReac Unknown CAN'T Verified 08/29/23 11:22 REMEMBER TOO LONG AGO Home Meds Home Medications Medication Instructions Recorded Confirmed acetaminophen 500 mg tablet 500 mg PO Q6H PRN Pain 10/25/19 08/30/23 (Acetaminophen Extra Strength) hydrocortisone 2.5 % topical cream 1 applic topical DAILY PRN SKIN 11/15/21 08/30/23 IRRITATION NEEDED sertraline 25 mg tablet (Zoloft) 200 mg PO DAILY 05/03/22 08/30/23 deutetrabenazine 12 mg tablet 12 mg PO BID 05/18/22 08/30/23 (Austedo) lithium carbonate 300 mg capsule See Rx Instructions .Route .COMPLEX 05/01/23 08/30/23 loperamide 2 mg capsule 2 mg PO TID PRN Diarrhea 05/01/23 08/30/23 celecoxib 100 mg capsule 200 mg PO QAM 06/21/23 08/30/23 Previous Rx's Medication Instructions Recorded bictegravir 50 mg-emtricitabine 1 tab PO QAM #30 tabs 01/12/20 200 mg-tenofovir alafenam 25 mg tablet (Biktarvy) ketoconazole 2 % shampoo 1 applic topical .COMPLEX #120 mL 05/18/22 L.acidop,casei,lactis,rham-B.lact,anish 2 cap PO DAILY #30 caps 04/08/23 625 mg (10 billion cell) capsule (Advanced Probiotic) sumatriptan succinate 100 mg 100 mg PO .COMPLEX PRN migraine 05/04/23 tablet (Imitrex) headache 30 days #9 tabs ketoconazole 2 % topical cream 1 applic topical DAILY #30 grams 05/07/23 hydrochlorothiazide 25 mg tablet 25 mg PO QAM PRN Fluid Retention 05/25/23 #90 tabs diphenoxylate-atropine 2.5 2 tab PO TID PRN diarrhea #90 tabs 05/30/23 mg-0.025 mg tablet (Lomotil) sildenafil (pulm.hypertension) 20 20 mg PO PRN #30 tabs 06/05/23 mg tablet cyanocobalamin (vitamin B-12) 1,000 mcg sublingual QAM #90 tabs 07/12/23 1,000 mcg sublingual tablet benztropine 0.5 mg tablet 0.5 mg PO BID #60 tabs 07/25/23 iron,carbonyl 65 mg-vitamin C 125 1 tab PO BID RLS #60 tabs 07/25/23 mg tablet,delayed release (Vitron-C) pramipexole 0.125 mg tablet 0.125 mg PO DAILY #30 tabs 07/25/23 (Mirapex) pregabalin 300 mg capsule 300 mg PO BID 30 days #60 caps 07/25/23 cephalexin 500 mg capsule 500 mg PO qid #56 caps 08/02/23 cholecalciferol (vitamin D3) 125 125 mcg PO DAILY #90 caps 08/07/23 mcg (5,000 unit) capsule mirabegron 50 mg tablet,extended 50 mg PO DAILY #90 tabs 08/07/23 release 24 hr Results & Data (ED) Vital Signs Vital Signs - 24 hr 08/30/23 11:08 08/30/23 11:31 08/30/23 11:40 Temperature 37.2 C Temperature Source Temporal Artery Scan Pulse Rate 51 L 45 L 46 L Pulse Rate from SpO2 Sensor 45 L Respiratory Rate 20 18 Respiratory Effort / Characteristics Non-Labored Spontaneous Respiratory Depth Normal Blood Pressure 146/90 H 164/94 H Blood Pressure Mean 108 117 Pulse Oximetry 96 96 Oxygen Delivery Method Room Air Room Air Sepsis New/Unexplained Change in Mental Status Yes Sepsis Action Taken by Nursing No Action Required 08/30/23 13:20 Temperature Temperature Source Pulse Rate Pulse Rate from SpO2 Sensor 50 L Respiratory Rate Respiratory Effort / Characteristics Respiratory Depth Blood Pressure 147/99 H Blood Pressure Mean 115 Pulse Oximetry 96 Oxygen Delivery Method Room Air Sepsis New/Unexplained Change in Mental Status Sepsis Action Taken by [facility] Medications Current Medication List: was personally reviewed by me Laboratory Data Attestation: I reviewed the patient's lab results. 08/30/23 11:30 08/30/23 11:30 Lab Results 08/30/23 08/30/23 08/30/23 Range/Units 11:22 11:30 11:32 WBC 3.76 L (4.8-10.8) K/ul RBC 4.99 (4.70-6.10) M/uL Hgb 14.5 (14.0-18.0) g/dl Hct 43.8 (42.0-52.0) % MCV 87.8 (80.0-100.0) fL MCH 29.1 (25.0-34.0) pg MCHC 33.1 (32.0-36.0) g/dL RDW Std Deviation 47.8 H (36.4-46.3) fL RDW Coeff of Bereket 14.9 H (11.5-14.5) % Plt Count 125 L (130-400) K/uL MPV 11.3 (9.4-12.4) fL Neutrophils % (Manual) 60 % Lymphocytes % (Manual) 19 % Reactive Lymphs % (Man) 19 % Monocytes % (Manual) 2 % Neutrophils # (Manual) 2.26 (1.40-6.50) K/uL Total Absolute Neuts 2.26 (1.4-6.5) K/uL Lymphocytes # (Manual) 0.71 L (1.2-3.4) K/uL Reactive Lymphs # 0.71 K/uL Total Abs Lymphocytes 1.43 (1.2-3.4) K/uL Monocytes # (Manual) 0.08 L (0.11-0.59) K/uL Polychromasia 1+ PT 12.3 H (9.0-12.0) Seconds INR 1.1 (0.9-1.1) APTT 32 H (21-31) Seconds PTT Ratio 1.1 D-Dimer 220 (0-500) ug/L FEU Sodium 135 L (136-145) mmol/L Potassium 4.2 (3.5-5.1) mmol/L Chloride 105 (98-107) mmol/L Carbon Dioxide 26 (21-32) mmol/L Anion Gap 4 (3-11) BUN 9 (6-23) mg/dl Creatinine 0.84 (0.6-1.4) mg/dl Est Cr Clr Drug Dosing 114.4 ml/min Est GFR ( Amer) 113.4 ml/min Est GFR (Non-Af Amer) 97.9 ml/min BUN/Creatinine Ratio 10.7 (10-20) Glucose 100 H (70-99(Fasting)) mg/dl POC Glucose 87 (70-99) mg/dl Calcium 8.5 L (8.6-10.3) mg/dl Magnesium 1.9 (1.7-2.4) mg/dl Total Bilirubin 0.5 (0.2-1.0) mg/dl AST 27 (13-39) U/L ALT 20 (7-52) U/L Alkaline Phosphatase 84 (34-104) U/L Troponin I High Sens 24.8 H (0-20) pg/ml C-Reactive Protein < 0.50 (0-0.5) mg/dl Total Protein 6.5 (6.0-8.3) gm/dl Albumin 3.8 (3.4-5.0) gm/dl Globulin 2.7 (2.5-4.0) gm/dl Albumin/Globulin Ratio 1.4 (0.9-2) Procalcitonin < 0.05 (0-0.5) ng/ml SARS-CoV-2 (PCR) (Negative) Influenza Type A (PCR) (Neg) Influenza Type B (PCR) (Neg) RSV (RT-PCR) (Neg) 08/30/23 Range/Units 11:50 WBC (4.8-10.8) K/ul RBC (4.70-6.10) M/uL Hgb (14.0-18.0) g/dl Hct (42.0-52.0) % MCV (80.0-100.0) fL MCH (25.0-34.0) pg MCHC (32.0-36.0) g/dL RDW Std Deviation (36.4-46.3) fL RDW Coeff of Bereket (11.5-14.5) % Plt Count (130-400) K/uL MPV (9.4-12.4) fL Neutrophils % (Manual) % Lymphocytes % (Manual) % Reactive Lymphs % (Man) % Monocytes % (Manual) % Neutrophils # (Manual) (1.40-6.50) K/uL Total Absolute Neuts (1.4-6.5) K/uL Lymphocytes # (Manual) (1.2-3.4) K/uL Reactive Lymphs # K/uL Total Abs Lymphocytes (1.2-3.4) K/uL Monocytes # (Manual) (0.11-0.59) K/uL Polychromasia PT (9.0-12.0) Seconds INR (0.9-1.1) APTT (21-31) Seconds PTT Ratio D-Dimer (0-500) ug/L FEU Sodium (136-145) mmol/L Potassium (3.5-5.1) mmol/L Chloride (98-107) mmol/L Carbon Dioxide (21-32) mmol/L Anion Gap (3-11) BUN (6-23) mg/dl Creatinine (0.6-1.4) mg/dl Est Cr Clr Drug Dosing ml/min Est GFR ( Amer) ml/min Est GFR (Non-Af Amer) ml/min BUN/Creatinine Ratio (10-20) Glucose (70-99(Fasting)) mg/dl POC Glucose (70-99) mg/dl Calcium (8.6-10.3) mg/dl Magnesium (1.7-2.4) mg/dl Total Bilirubin (0.2-1.0) mg/dl AST (13-39) U/L ALT (7-52) U/L Alkaline Phosphatase (34-104) U/L Troponin I High Sens (0-20) pg/ml C-Reactive Protein (0-0.5) mg/dl Total Protein (6.0-8.3) gm/dl Albumin (3.4-5.0) gm/dl Globulin (2.5-4.0) gm/dl Albumin/Globulin Ratio (0.9-2) Procalcitonin (0-0.5) ng/ml SARS-CoV-2 (PCR) NEGATIVE (Negative) Influenza Type A (PCR) Negative (Neg) Influenza Type B (PCR) Negative (Neg) RSV (RT-PCR) Positive A* (Neg) Administered Medications Discontinued Medications Aspirin (Aspirin Chew 324 Mg) 324 mg PO NOW STA Stop: 08/30/23 13:11 Last Admin: 08/30/23 13:21 Dose: 324 mg Documented By: LOLIS Cefepime HCl 2,000 mg/ Syringe 20 mls @ 5 mls/min IV NOW STA; Protocol Stop: 08/30/23 13:00 Last Admin: 08/30/23 13:21 Dose: 5 mls/min Documented By: LOLIS Ioversol (Optiray 320 125ml) 115 ml IV ONCE ONE Stop: 08/30/23 11:30 Last Admin: 08/30/23 11:29 Dose: 115 ml Documented By: JAR Lorazepam (Lorazepam 1 Mg/1 Ml Syr Ed Inj Use) 1 mg IV ONE STA Stop: 08/30/23 12:17 Last Admin: 08/30/23 12:20 Dose: 1 mg Documented By: LOLIS Imaging Data Attestation: I personally reviewed and interpreted this imaging study as follows: My Impression: 1 view chest x-ray was obtained in the emergency department. My interpretation is possible infiltrate in the right upper lobe. There is no free air, final report below. CT of the brain was obtained in the emergency department. My interpretation is no intracranial hemorrhage or mass effect, final report below. CT abdomen pelvis was obtained in the emergency department. My interpretation is no free air or signs of bowel obstruction, final report below. Radiologist's Impression: Chest X-Ray 08/30/23 11:10 XR chest 1V portable CLINICAL HISTORY: neuro deficit, acute stroke suspected TECHNIQUE: Single frontal radiograph of the chest was obtained. Comparison: Comparison is made to chest radiograph 02/17/2023 FINDINGS: No lines and tubes are seen. The cardiomediastinal silhouette is normal. The lungs are clear. No evidence of pleural effusion or pneumothorax. IMPRESSION: No acute chest disease. ACT 112: Negative or not required by law. Electronically signed by: Leon Mondragon M.D. 08/30/2023 12:[address] 08/30/23 11:[address] DOSE: HISTORY: Slurred speech. Confusion. neuro deficit, acute stroke suspected TECHNIQUE: Multiaxial CT images of the head were performed without the use of intravenous contrast. Automated exposure control was utilized for this study. A dose lowering technique was utilized adhering to the principles of ALARA. Comparison: Head CT 06/21/2017. Findings: Moderate mucosal thickening within the maxillary sinuses with a trace fluid level within the left maxillary sinus. There is partial opacification of the ethmoid air cells. This has progressed in the interval. The mastoid air cells are clear. The calvarium and skull base are intact. The ventricles and sulci are within normal limits. There is no mass, hematoma, midline shift, or acute infarct. Impression: No acute intracranial abnormality. Sinus disease as described above. ACT 112: Negative or not required by law. Electronically signed by: Rajendra Diaz M.D. 08/30/2023 11:30 AM Head CTA 08/30/23 11:10 CTA ANGIOGRAPHY OF THE HEAD CLINICAL HISTORY: Neuro deficit, acute stroke suspected. Slurred speech. COMPARISON STUDY: MRI of the brain June 06, 2022. TECHNIQUE: Helical axial images of the head were obtained following uneventful intravenous administration of 115 cc of Optiray. Sagittal and coronal reconstructions were viewed as well as maximal intensity projections on an independent 3-D workstation. Automated exposure control was utilized for the study. A dose lowering technique was utilized adhering to the principles of ALARA. FINDINGS: No acute intracranial hemorrhage was identified on the head CT which will be reported separately. Ventricular system is normal. Basal cisterns are patent. There are no extra-axial collections. Extensive ethmoid sinus mucosal thickening are present. Small air-fluid levels within the frontal sinuses are present. Small air-fluid level within the left maxillary sinus is present. There is moderate polypoid mucosal thickening of the maxillary sinuses. There is mild mucosal thickening of the sphenoid sinuses. The bilateral M1, M2, A1 and A2 segments are patent. No vessel occlusion is identified. Left vertebral artery ends in PICA. There is persistence of the left posterior cerebral artery. There is a large right posterior communicating artery. IMPRESSION: 1. No large vessel occlusion. No intracranial aneurysm. 2. Paranasal sinus opacification, as above. ACT 112: Negative or not required by law. Electronically signed by: Dwight Hercules M.D. 08/30/2023 11:42 AM Neck CTA 08/30/23 11:10 NECK CTA HISTORY: neuro deficit, acute stroke suspected TECHNIQUE: Multiaxial CT images of the neck were performed following the intravenous administration of contrast to evaluate the major cervical vessels. 3D/MIP images were also obtained. Sagittal and coronal reformats were reviewed. All measurements were calculated based on NASCET criteria. A dose lowering technique was utilized adhering to the principles of ALARA. COMPARISON STUDY: None. FINDINGS: The aortic arch and proximal great vessels are widely patent. There is no significant stenosis, occlusion, or dissection identified within the bilateral common carotid, internal carotid, or vertebral arteries. A few faint patchy groundglass airspace opacities within the right upper lobe. No pneumothorax. Mucosal thickening within the maxillary sinuses. The distal left vertebral artery terminates into the left posterior inferior cerebellar artery. This is considered to be a normal variant. 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 IMPRESSION: 1. No significant stenosis, occlusion, or dissection identified within the carotid or vertebral arteries. 2. A few faint patchy groundglass airspace opacities within the right upper lobe. This may represent a developing pneumonia. ACT 112: Negative or not required by law. Electronically signed by: Rajendra Diaz M.D. 08/30/2023 11:59 AM Abdomen/Pelvis CT 08/30/23 11:17 CT abd pelvis IV con only CLINICAL HISTORY: RLQ pain TECHNIQUE: Helical axial images of the abdomen and pelvis were obtained and displayed. Automated dose lowering techniques and/or adjustment according to patient size were utilized for this exam. This exam was performed with intravenous contrast. COMPARISON: Comparison is made to CT abdomen pelvis 05/10/2014 FINDINGS: Lower chest: Cardiomegaly is partially visualized. Liver: Unremarkable. No focal lesions are seen. Gallbladder and biliary tree: Patient is status post cholecystectomy. No intra- or extrahepatic biliary ductal dilation. Pancreas: Unremarkable, no focal lesions. Spleen: Unremarkable. Adrenals: Right lipid rich adenoma is seen. Kidneys and ureters: Right renal cyst is seen. Bladder: Unremarkable. Reproductive organs: Unremarkable. Bowel: The appendix is normal. Patient is status post gastric surgery and there is a small hiatal hernia. Lymph nodes Retroperitoneal: Unremarkable. Pelvic: Unremarkable. Mesenteric: Unremarkable. Peritoneum: Normal. Vessels: Unremarkable. Abdominal wall: Unremarkable. Bones: Degenerative changes in the visualized spine. IMPRESSION: 1. No acute abnormalities to explain right lower quadrant pain, in particular the appendix is unremarkable and there is no evidence of hydronephrosis or obstructive stone. 2. Postsurgical changes of gastric bypass. 3. Additional findings as above. ACT 112: Negative or not required by law. Electronically signed by: Leon Mondragon M.D. 08/30/2023 11:46 AM Discharge Plan Visit Data Chief Complaint: Stroke Alert Stated Complaint: ABD PAIN, TROUBLE BREATHING ED Provider: Sal Henriquez Discharge Problem: Abnormal EKG, Abdominal pain, Elevated troponin I level, Respiratory syncytial virus (RSV), Stroke-like symptom, Pneumonia Patient Disposition: Being Evaluated by Hospitalist Forms Stand Alone Forms: [facility] [employer] Prescriptions Prescriptions: No Action ketoconazole 2 % shampoo 1 applic TOP .COMPLEX Qty: 120 5RF Rx Instructions: 1 applic TOP Wash scalp twice weekly as directed. Let sit 3-5 minutes prior to rinsing.; sumatriptan succinate [Imitrex] 100 mg tablet 100 mg PO .COMPLEX PRN (Reason: migraine headache) 30 Days Qty: 9 5RF Rx Instructions: take one at onset of headache, may repeat in 2 hours prn, limit 2-3 days / week PRN ketoconazole 2 % cream 1 applic topical DAILY Qty: 30 2RF Rx Instructions: Apply to areas of the face once daily as directed. hydrochlorothiazide 25 mg tablet 25 mg PO QAM PRN (Reason: Fluid Retention) Qty: 90 1RF diphenoxylate-atropine [Lomotil] 2.5-0.025 mg tablet 2 tab PO TID PRN (Reason: diarrhea) Qty: 90 5RF sildenafil (pulm.hypertension) 20 mg tablet 20 mg PO PRN Qty: 30 2RF Rx Instructions: administer half hour up to four hours before activity on an empty stomach. May start with one tab and go up to 5 as needed. Do not exceed 100mg. cyanocobalamin (vitamin B-12) 1,000 mcg tablet, sublingual 1,000 mcg sublingual QAM Qty: 90 1RF cephalexin 500 mg capsule 500 mg PO qid Qty: 56 0RF Rx Instructions: filled 08/03/23 cholecalciferol (vitamin D3) 125 mcg (5,000 unit) capsule 125 mcg PO DAILY Qty: 90 3RF hydrocortisone 2.5 % cream 1 applic TOP DAILY PRN (Reason: SKIN IRRITATION NEEDED) Rx Instructions: Apply to areas of the face daily for up to 7 days as needed for flaring. Biktarvy 50-200-25 mg tablet 1 tab PO QAM Qty: 30 2RF sertraline [Zoloft] 25 mg tablet 200 mg PO DAILY mirabegron 50 mg tablet extended release 24 hr 50 mg PO DAILY Qty: 90 1RF pregabalin 300 mg capsule 300 mg PO BID 30 Days Qty: 60 5RF Hold Instructions: not takes Vitron-C 65 mg iron- 125 mg tablet,delayed release (DR/EC) 1 tab PO BID Qty: 60 11RF pramipexole [Mirapex] 0.125 mg tablet 0.125 mg PO DAILY Qty: 30 2RF Rx Instructions: take 1-2 hours before HS benztropine 0.5 mg tablet 0.5 mg PO BID Qty: 60 2RF Rx Instructions: from psych Austedo 12 mg tablet 12 mg PO BID lithium carbonate 300 mg capsule See Rx Instructions .ROUTE .COMPLEX Rx Instructions: 600mg BID celecoxib 100 mg capsule 200 mg PO QAM acetaminophen [Acetaminophen Extra Strength] 500 mg Tablet 500 mg PO Q6H PRN (Reason: Pain) Advanced Probiotic 625 mg (10 billion cell) Capsule 2 cap PO DAILY Qty: 30 0RF loperamide 2 mg capsule 2 mg PO TID PRN (Reason: Diarrhea) Referrals Referrals: Felicity Colon MD [Primary Care Provider] - Discharge Problem: Abdominal pain Qualifiers: Abdominal location: right lower quadrant Qualified Code(s): R10.31 - Right lower quadrant pain Pneumonia Qualifiers: Pneumonia type: due to unspecified organism Laterality: unspecified laterality Lung location: unspecified part of lung Qualified Code(s): J18.9 - Pneumonia, unspecified organism
[2023-08-30 12:00] LABS: Alanine Aminotransferase 20 U/L (7-52); Albumin Globulin Ratio 1.4 (0.9-2); Albumin Level 3.8 gm/dl (3.4-5.0); Alkaline Phosphatase 84 U/L (34-104); Anion Gap 4 (3-11); Aspartate Aminotransferase 27 U/L (13-39); BUN Creatinine Ratio 10.7 (10-20); Bilirubin,Total 0.5 mg/dl (0.2-1.0); Blood Urea Nitrogen 9 mg/dl (6-23); Calcium 8.5 mg/dl (8.6-10.3); Carbon Dioxide 26 mmol/L (21-32); Chloride 105 mmol/L (98-107); Creatinine Clr Calc Pharmacy 114.4 ml/min; Est GFR (African American) 113.4 ml/min; Est GFR (Non-African American) 97.9 ml/min; Globulin 2.7 gm/dl (2.5-4.0); Glucose 100 mg/dl (70-99(Fasting)); Magnesium 1.9 mg/dl (1.7-2.4); Potassium 4.2 mmol/L (3.5-5.1); Sodium 135 mmol/L (136-145); Total Protein 6.5 gm/dl (6.0-8.3)
--- NOTE | 2023-08-30 12:01 | CT Scan Report ---
NECK CTA HISTORY: neuro deficit, acute stroke suspected TECHNIQUE: Multiaxial CT images of the neck were performed following the intravenous administration o f contrast to evaluate the major cervical vessels. 3D/MIP images were also obtained. Sagittal and cor onal reformats were reviewed. All measurements were calculated based on NASCET criteria. A dose low ering technique was utilized adhering to the principles of ALARA. COMPARISON STUDY: None. FINDINGS: The aortic arch and proximal great vessels are widely patent. There is no significant sten osis, occlusion, or dissection identified within the bilateral common carotid, internal carotid, or v ertebral arteries. A few faint patchy groundglass airspace opacities within the right upper lobe. No pneumothorax. Mucosal thickening within the maxillary sinuses. The distal left vertebral artery termi nates into the left posterior inferior cerebellar artery. This is considered to be a normal variant. 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 IMPRESSION: 1. No significant stenosis, occlusion, or dissection identified within the carotid or vertebral arter ies. 2. A few faint patchy groundglass airspace opacities within the right upper lobe. This may represent a developing pneumonia. ACT 112: Negative or not required by law. Electronically signed by: Rajendra Diaz M.D. 08/30/2023 11:59 AM
[2023-08-30 12:03] LABS: INR 1.1 (0.9-1.1); Partial Thromboplastin Ratio 1.1; Partial Thromboplastin Time 32 Seconds (21-31); Prothrombin Time 12.3 Seconds (9.0-12.0)
[2023-08-30 12:07] LABS: Troponin I High Sensitivity 24.8 pg/ml (0-20)
[2023-08-30 12:10] LABS: ALC (manual) 1.43 K/uL (1.2-3.4); ANC (manual) 2.26 K/uL (1.4-6.5); Hematocrit (blood only) 43.8 % (42.0-52.0); Hemoglobin 14.5 g/dl (14.0-18.0); Lymphocytes # (manual) 0.71 K/uL (1.2-3.4); Lymphocytes % (manual) 19 %; Mean Corpuscular Hemoglobin 29.1 pg (25.0-34.0); Mean Corpuscular Hgb Conc 33.1 g/dL (32.0-36.0); Mean Corpuscular Volume 87.8 fL (80.0-100.0); Mean Platelet Volume 11.3 fL (9.4-12.4); Monocytes # (manual) 0.08 K/uL (0.11-0.59); Monocytes % (manual) 2 %; Neutrophils # (manual) 2.26 K/uL (1.40-6.50); Neutrophils % (manual) 60 %; Platelet Count 125 K/uL (130-400); Polychromasia 1+; RDW Coefficient of Variation 14.9 % (11.5-14.5); RDW Standard Deviation 47.8 fL (36.4-46.3); Reactive Lymphocytes # (manual) 0.71 K/uL; Reactive Lymphocytes % (manual) 19 %; Red Blood Count 4.99 M/uL (4.70-6.10); White Blood Count 3.76 K/ul (4.8-10.8)
[2023-08-30] MEDS ORDERED: LORazepam 1 MG/1 ML SYR ED Inj Use IV STA (12:16)
[2023-08-30 12:41] LABS: Influenza A virus by PCR Negative (Neg); Influenza B virus by PCR Negative (Neg); SARS CoV2 RNA(COVID-19) Ceph NEGATIVE (Negative)
[2023-08-30 12:49] LABS: RSV by PCR Positive (Neg)
[2023-08-30 12:50] LABS: D Dimer 220 ug/L FEU (0-500)
--- NOTE | 2023-08-30 12:56 | XRay Report ---
XR chest 1V portable CLINICAL HISTORY: neuro deficit, acute stroke suspected TECHNIQUE: Single frontal radiograph of the chest was obtained. Comparison: Comparison is made to chest radiograph 02/17/2023 FINDINGS: No lines and tubes are seen. The cardiomediastinal silhouette is normal. The lungs are clear. No evid ence of pleural effusion or pneumothorax. IMPRESSION: No acute chest disease. ACT 112: Negative or not required by law. Electronically signed by: Leon Mondragon M.D. 08/30/2023 12:55 PM
[2023-08-30] MEDS ORDERED: CEFEPIME 2,000 MG in SYRINGE 0 ML IV STA (12:57)
[2023-08-30 13:02] LABS: C Reactive Protein < 0.50 mg/dl (0-0.5)
[2023-08-30] MEDS ORDERED: ASPIRIN CHEW 324 MG PO STA (13:10)
--- NOTE | 2023-08-30 13:31 | History & Physical Report ---
Date of Service August 30, 2023 Assessment & Plan (1) Respiratory syncytial virus (RSV): Plan: Dry cough x 1 week Patient endorses epigastric pain transversely; worse on the right side CXR NAF + RSV on arrival Procalcitonin WNL Blood culture ordered, pending Patient received cefepime 2000 mg IV in the ED Will continue to cover for concomitant CAP with Rocephin 2000 mg IV q24h BioFire ordered, pending Droplet/contact isolation precautions Continuous oxygen as needed to maintain SpO2 >94% A.m. CBC, BMP, LFT, CRP (2) Abdominal pain: Plan: Pain endorses intermittent RUQ pain; worse with deep breaths Hx of gastric bypass surgery D-dimer negative Lipase WNL Abd/pelvis CT without appendicitis, obstructive stone, or hydronephrosis Clinically, suspect RUQ pain is secondary to RSV infection Acetaminophen 650 mg p.o. q4h as needed for pain/fever (3) Stroke-like symptom: Plan: Patient was a stroke alert in the ED on 08/30 Woke up with confusion, and difficulty with speech/word finding; no facial droop, or unilateral deficits Head CT NAF CTA head/neck revealed no large vessel occlusion or aneurysm, but noted paranasal sinus opacification Brain MRI revealed no acute infarct, but did note sinus disease ("Sinus mucosal thickening is seen most prominent in the maxillary and ethmoid sinuses") Echo on 07/23/2023 revealed LVEF >70%; without evidence of ASD Patient received aspirin 324 mg p.o. in the ED Continue telemetry monitoring Fall precautions (4) Human immunodeficiency virus (HIV) disease: Plan: Dx in 2001 Last CD4 count at 26L on 06/08/23 Unlikely opportunistic infection Continue Biktarvy (5) Elevated troponin I level: Plan: Troponin elevated at 24.8 --> 25.3 --> 24.9 Clinically, patient denies chest pain EKG revealed sinus bradycardia at 44 bpm and marked T wave abnormality; QTc 483 Repeat EKG and troponin morning of 08/31 (6) Lower back pain: Plan: Chronic Continue celecoxib as needed (7) Tremor: Plan: Continue pramipexole, [place] (8) Extrapyramidal and movement disorder, unspecified: Plan: Continue benztropine (9) Obstructive sleep apnea: Plan: CPAP ordered HS Patient reports he does not normally use at home, and declined in the room, however we morning once that is available (10) Peripheral neuropathy: Plan: Continue pregabalin (11) Bipolar 1 disorder: Plan: Continue sertraline, lithium (12) H/O amphetamine abuse: Plan Disposition: Admit to PCU telemetry DNR/DNI Keep n.p.o. pending dysphagia screen VTE PPx: SCDs, Lovenox 40 mg SQ q24h History of Present Illness Chief Complaint: SOB, stroke-alert Primary Care Provider: Felicity Colon MD Vijay is a 58yo male with PMH of tremor, memory loss, RICHARD, OA, IBS, migraine, esophageal reflux, HTN, SNHL of both ears, amphetamine abuse, and HIV. He presented for increased confusion and slurred speech the morning of 08/30. Patient reports that the confusion started last night on 08/29, as well as stomach pain. He then woke up with confusion, difficulty speaking, and stomach pain and decided to come to the hospital. He endorses a dry cough x 1 week. Stomach pain is on his right upper quadrant, and radiates to the right flank, and occasionally transverse across the epigastric region. He rates the pain 12 out of 10 at present, and describes it as intermittent, sharp, and stabbing. Pain is worse with inspiration. He has a difficult time getting comfortable in the bed. No history of kidney stones. He reports no prior experiences like this. He did not take any pain medication at home. Furthermore, he did not take any of his morning medications. Patient's [id number] (Brittani) is at the bedside and provides additional history. Patient has been living with renufn-wc-hwa for the past year. Mother not notes that there is an acute change in his cognitive baseline, as he has had difficulty communicating this morning. He is oriented to location, name, but not birthday or time. He notes he has had fevers over the past week. His teeth grinding and tremors are ongoing. He denies smoking, tobacco use, vaping, and recreational drug use. He reports that he would like to be DNR/DNI, and that his medical proxy would be his [place]. Patient is hypertensive at 147/99, as well as bradycardic at 46 bpm at time of admission ED Course: Lorazepam 1 mg IV Cefepime 2000 mg IV Aspirin 324 mg p.o. IVF ROS: Patient endorses intermittent fevers this past week, dizziness, headaches (chronic), difficulty speaking this morning, pleuritic CP when coughing, intermittent RUQ abdominal pain, and increased urinary frequency. Patient denies facial droop, chest pain, burning with urination, or numbness/tingling going down legs or arms. Notable PMH: Hx of gastric bypass surgery Still going to wound clinic for left leg injury in 03/2023 PMH of HIV (dx in 2001); taking medicine daily Per patient, no PMH of NE, DVT/PE, CVA, (unsure about hx of seizures) Fam Hx: brother had issues with seizures No hx of appendicitis Allergies Allergy/AdvReac Type Severity Reaction Status Date / Time mercury (elemental) Allergy Intermediate Facial Verified 08/29/23 11:22 swelling, Nausea/Vomiting strawberry Allergy Intermediate rash Verified 08/29/23 11:22 Fish Containing Products Allergy Verified 08/29/23 11:22 fish derived Allergy Verified 08/29/23 11:22 fish oil Allergy Verified 08/29/23 11:22 shrimp AdvReac Intermediate ALL Verified 08/29/23 11:22 SEAFOOD D/T MERCURY RELATED. doxepin AdvReac Unknown CAN'T Verified 08/29/23 11:22 REMEMBER TOO LONG AGO Home Medications Medication Instructions Recorded Confirmed Type acetaminophen 500 mg tablet 500 mg PO Q6H PRN Pain 10/25/19 08/30/23 History (Acetaminophen Extra Strength) bictegravir 50 mg-emtricitabine 1 tab PO QAM #30 tabs 01/12/20 08/30/23 Rx 200 mg-tenofovir alafenam 25 mg tablet (Biktarvy) hydrocortisone 2.5 % topical cream 1 applic topical DAILY PRN SKIN 11/15/21 08/30/23 History IRRITATION NEEDED sertraline 25 mg tablet (Zoloft) 200 mg PO DAILY 05/03/22 08/30/23 History deutetrabenazine 12 mg tablet 12 mg PO BID 05/18/22 08/30/23 History (Austedo) ketoconazole 2 % shampoo 1 applic topical .COMPLEX #120 mL 05/18/22 08/30/23 Rx L.acidop,casei,lactis,rham-B.lact,anish 2 cap PO DAILY #30 caps 04/08/23 08/30/23 Rx 625 mg (10 billion cell) capsule (Advanced Probiotic) lithium carbonate 300 mg capsule See Rx Instructions .Route .COMPLEX 05/01/23 08/30/23 History loperamide 2 mg capsule 2 mg PO TID PRN Diarrhea 05/01/23 08/30/23 History sumatriptan succinate 100 mg 100 mg PO .COMPLEX PRN migraine 05/04/23 08/30/23 Rx tablet (Imitrex) headache 30 days #9 tabs ketoconazole 2 % topical cream 1 applic topical DAILY #30 grams 05/07/23 08/30/23 Rx hydrochlorothiazide 25 mg tablet 25 mg PO QAM PRN Fluid Retention 05/25/23 Rx #90 tabs diphenoxylate-atropine 2.5 2 tab PO TID PRN diarrhea #90 tabs 05/30/23 08/30/23 Rx mg-0.025 mg tablet (Lomotil) sildenafil (pulm.hypertension) 20 20 mg PO PRN #30 tabs 06/05/23 08/30/23 Rx mg tablet celecoxib 100 mg capsule 200 mg PO QAM 06/21/23 08/30/23 History cyanocobalamin (vitamin B-12) 1,000 mcg sublingual QAM #90 tabs 07/12/23 08/30/23 Rx 1,000 mcg sublingual tablet benztropine 0.5 mg tablet 0.5 mg PO BID #60 tabs 07/25/23 08/30/23 Rx iron,carbonyl 65 mg-vitamin C 125 1 tab PO BID RLS #60 tabs 07/25/23 08/30/23 Rx mg tablet,delayed release (Vitron-C) pramipexole 0.125 mg tablet 0.125 mg PO DAILY #30 tabs 07/25/23 08/30/23 Rx (Mirapex) pregabalin 300 mg capsule 300 mg PO BID 30 days #60 caps 07/25/23 08/30/23 Rx cephalexin 500 mg capsule 500 mg PO qid #56 caps 08/02/23 08/30/23 Rx cholecalciferol (vitamin D3) 125 125 mcg PO DAILY #90 caps 08/07/23 08/30/23 Rx mcg (5,000 unit) capsule mirabegron 50 mg tablet,extended 50 mg PO DAILY #90 tabs 08/07/23 08/30/23 Rx release 24 hr Past Med/Surg History Medical History (Updated 08/30/23 @ 15:09 by Rajendra Barker PA-C) Bipolar 1 disorder Lower back pain Human immunodeficiency virus (HIV) disease Dx around 2001 - 2002 Extrapyramidal and movement disorder, unspecified Lightheadedness Shortness of breath Chest pain Surgical wound, non healing Wound cellulitis Cellulitis of leg without foot, left Hematoma of left lower leg Pain and swelling of left lower extremity Leg edema Tiredness Methamphetamine abuse Left knee sprain Traumatic hematoma of left lower leg Diarrhea Dyskinesia of mouth Obesity Thoracic back pain Lumbar pain Cervical pain Sleep apnea Inguinal lymphadenitis Essential tremor Nodule of groin Family history of melanoma Restless leg syndrome Peripheral neuropathy Bipolar disorder Leg swelling Esophageal reflux Generalized anxiety disorder Spondylosis of cervical region without myelopathy or radiculopathy Vitamin B12 deficiency Vitamin D deficiency disease Depression Kidney stones Surgical History History of incision and drainage (03/28/23) Incision and Drainage with Debridement of Left Lower Extremity(Left) - Rios Dawkins DO S/P cholecystectomy S/P gastric surgery Status post gastric bypass for obesity Family History Mother Diabetes Systemic lupus erythematosus Father Melanoma Myocardial infarction Prostate cancer Other Ulcerative colitis Denies family history of Ovarian cancer Crohn's disease Breast cancer Colorectal cancer Irritable bowel syndrome Social History Smoking Status: Never smoker Do You Dip or Chew Tobacco: No; Hx Alcohol Use: No Hx Substance Use: No Preferred Language: Syrian Communication Ability: Effective Visual Impairment: No Limitations Hearing Ability: Normal Incident Commander Required: No Beliefs That Will Affect Care: None marital status: Current Living Situation: Spouse Current Living Situation Comment: lives with spouse and in-laws in 2 story home current occupational status: disabled Other Information That Helps Us Care for You: No Feels Safe at Home: Yes Safety Concerns: Feels Safe At This Time Diet: regular caffeine: Yes Dental Care, Regularly: Yes Physical Activity Frequency: Daily Seatbelt Use: always Sunscreen Use: No Assistive Devices: Glasses Review of Systems Review of Systems: See HPI above Physical Exam Physical Exam: General: Patient exhibits mild tremor, and teeth grinding at baseline; leaning to the right in bed; non-toxic appearing; well-nourished; cooperative HEENT: normocephalic, atraumatic; no scleral icterus; PERRLA w/ EOMs intact; moist mucus membrane; vision and hearing intact; TMs visualized B/L, pearly shane; sensation intact in the face B/L Neck: supple; no lymphadenopathy; trachea midline Skin: warm, moist, erythematous without signs of tenting; no cyanosis; no rashes, bruising, lesions noted on the chest, abdomen, or back CV: chest wall NTP; RRR; S1/S2 normal; no murmurs/rubs/gallops; pulses intact and symmetric at radial, DP, and PT Lungs: no acute respiratory distress; symmetrical chest wall expansion; clear breath sounds across all lung estevez w/o adventitious sounds; no wheezing ABD: Soft; RUQ TTP; BS present; + rebound/guarding; mild distention secondary to body habitus; mild CVA tenderness; negative Rovsing sign; negative McBurney's point tenderness; positive Ibarra sign MSK: no tics or fasciculations; no edema noted in the LEs b/l; 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 Neuro: Oriented to name and location, not birthday or time; normal mood and affect; difficulty with speech, may be exhibiting slurred speech at baseline due to EPS; no focal deficits; negative pronator drift; sensation intact in the LEs/UEs b/l Results & Data Results & Data Vital Signs (Past 12 Hours) Vital Signs Temp Pulse Resp BP Pulse Ox O2 Del Method 08/30/23 13:20 147/99 H 96 Room Air 08/30/23 11:40 46 L 08/30/23 11:31 45 L 18 164/94 H 96 Room Air 08/30/23 11:08 37.2 C 51 L 20 146/90 H 96 Room Air Laboratory Results Abnormal lab results 08/30/23 08/30/23 08/30/23 Range/Units 11:30 11:50 13:19 WBC 3.76 L (4.8-10.8) K/ul RDW Std Deviation 47.8 H (36.4-46.3) fL RDW Coeff of Bereket 14.9 H (11.5-14.5) % Plt Count 125 L (130-400) K/uL Lymphocytes # (Manual) 0.71 L (1.2-3.4) K/uL Monocytes # (Manual) 0.08 L (0.11-0.59) K/uL PT 12.3 H (9.0-12.0) Seconds APTT 32 H (21-31) Seconds Sodium 135 L (136-145) mmol/L Glucose 100 H (70-99(Fasting)) mg/dl Calcium 8.5 L (8.6-10.3) mg/dl Troponin I High Sens 24.8 H 25.3 H (0-20) pg/ml RSV (RT-PCR) Positive A* (Neg) Diagnostic Findings Chest X-Ray 08/30/23 11:10 XR chest 1V portable CLINICAL HISTORY: neuro deficit, acute stroke suspected TECHNIQUE: Single frontal radiograph of the chest was obtained. Comparison: Comparison is made to chest radiograph 02/17/2023 FINDINGS: No lines and tubes are seen. The cardiomediastinal silhouette is normal. The lungs are clear. No evidence of pleural effusion or pneumothorax. IMPRESSION: No acute chest disease. ACT 112: Negative or not required by law. Electronically signed by: Leon Mondragon M.D. 08/30/2023 12:[address] 08/30/23 11:[address] DOSE: HISTORY: Slurred speech. Confusion. neuro deficit, acute stroke suspected TECHNIQUE: Multiaxial CT images of the head were performed without the use of intravenous contrast. Automated exposure control was utilized for this study. A dose lowering technique was utilized adhering to the principles of ALARA. Comparison: Head CT 06/21/2017. Findings: Moderate mucosal thickening within the maxillary sinuses with a trace fluid level within the left maxillary sinus. There is partial opacification of the ethmoid air cells. This has progressed in the interval. The mastoid air cells are clear. The calvarium and skull base are intact. The ventricles and sulci are within normal limits. There is no mass, hematoma, midline shift, or acute infarct. Impression: No acute intracranial abnormality. Sinus disease as described above. ACT 112: Negative or not required by law. Electronically signed by: Rajendra Diaz M.D. 08/30/2023 11:30 AM Head CTA 08/30/23 11:10 CTA ANGIOGRAPHY OF THE HEAD CLINICAL HISTORY: Neuro deficit, acute stroke suspected. Slurred speech. COMPARISON STUDY: MRI of the brain June 06, 2022. TECHNIQUE: Helical axial images of the head were obtained following uneventful intravenous administration of 115 cc of Optiray. Sagittal and coronal rec onstructions were viewed as well as maximal intensity projections on an independent 3-D workstation. Automated exposure control was utilized for the study. A dose lowering technique was utilized adhering to the principles of ALARA. FINDINGS: No acute intracranial hemorrhage was identified on the head CT which will be reported separately. Ventricular system is normal. Basal cisterns are patent. There are no extra-axial collections. Extensive ethmoid sinus mucosal thickening are present. Small air-fluid levels within the frontal sinuses are present. Small air-fluid level within the left maxillary sinus is present. There is moderate polypoid mucosal thickening of the maxillary sinuses. There is mild mucosal thickening of the sphenoid sinuses. The bilateral M1, M2, A1 and A2 segments are patent. No vessel occlusion is identified. Left vertebral artery ends in PICA. There is persistence of the left posterior cerebral artery. There is a large right posterior communicating artery. IMPRESSION: 1. No large vessel occlusion. No intracranial aneurysm. 2. Paranasal sinus opacification, as above. ACT 112: Negative or not required by law. Electronically signed by: Dwight Hercules M.D. 08/30/2023 11:42 AM Neck CTA 08/30/23 11:10 NECK CTA HISTORY: neuro deficit, acute stroke suspected TECHNIQUE: Multiaxial CT images of the neck were performed following the intravenous administration of contrast to evaluate the major cervical vessels. 3D/MIP images were also obtained. Sagittal and coronal reformats were reviewed. All measurements were calculated based on NASCET criteria. A dose lowering technique was utilized adhering to the principles of ALARA. COMPARISON STUDY: None. FINDINGS: The aortic arch and proximal great vessels are widely patent. There is no significant stenosis, occlusion, or dissection identified within the bilateral common carotid, internal carotid, or vertebral arteries. A few faint patchy groundglass airspace opacities within the right upper lobe. No pneumothorax. Mucosal thickening within the maxillary sinuses. The distal left vertebral artery terminates into the left posterior inferior cerebellar artery. This is considered to be a normal variant. 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 IMPRESSION: 1. No significant stenosis, occlusion, or dissection identified within the car otid or vertebral arteries. 2. A few faint patchy groundglass airspace opacities within the right upper lobe. This may represent a developing pneumonia. ACT 112: Negative or not required by law. Electronically signed by: Rajendra Diaz M.D. 08/30/2023 11:59 AM Abdomen/Pelvis CT 08/30/23 11:17 CT abd pelvis IV con only CLINICAL HISTORY: RLQ pain TECHNIQUE: Helical axial images of the abdomen and pelvis were obtained and displayed. Automated dose lowering techniques and/or adjustment according to patient size were utilized for this exam. This exam was performed with intravenous contrast. COMPARISON: Comparison is made to CT abdomen pelvis 05/10/2014 FINDINGS: Lower chest: Cardiomegaly is partially visualized. Liver: Unremarkable. No focal lesions are seen. Gallbladder and biliary tree: Patient is status post cholecystectomy. No intra- or extrahepatic biliary ductal dilation. Pancreas: Unremarkable, no focal lesions. Spleen: Unremarkable. Adrenals: Right lipid rich adenoma is seen. Kidneys and ureters: Right renal cyst is seen. Bladder: Unremarkable. Reproductive organs: Unremarkable. Bowel: The appendix is normal. Patient is status post gastric surgery and there is a small hiatal hernia. Lymph nodes Retroperitoneal: Unremarkable. Pelvic: Unremarkable. Mesenteric: Unremarkable. Peritoneum: Normal. Vessels: Unremarkable. Abdominal wall: Unremarkable. Bones: Degenerative changes in the visualized spine. IMPRESSION: 1. No acute abnormalities to explain right lower quadrant pain, in particular the appendix is unremarkable and there is no evidence of hydronephrosis or obstructive stone. 2. Postsurgical changes of gastric bypass. 3. Additional findings as above. ACT 112: Negative or not required by law. Electronically signed by: Leon Mondragon M.D. 08/30/2023 11:46 AM Code Status & VTE Plan Code Status DNR/DNI VTE Prophylaxis Plan VTE Prophylaxis will be ordered: Yes Supervising Physician Co-Signing Physician Notes I discussed this patient with Mj FONTENOT. Patient had viral load checked in June of this year which was essentially undetectable, do not believe the pa tient is at significantly increased risk for opportunistic infections. Check a BioFire, treat as if this is a community-acquired pneumonia. The small may be reflective of the RSV infection. Patient has been followed by cardiology with having cardiac cath and exercise stress test in the last 6 months. We know he has baseline bradycardia and was recently taken off his beta-blockers. No reporting abnormality in neuroexam. Difficulty with word finding cognitive function, will obtain MRI which should exclude TIA and posterior circulation issues not otherwise imaged on stroke alert. PG Care Time/CCT Total # of Minutes Spent Total Time Spent with Patient: Total time spent is greater than 50% in coordination of care (as documented) at patient's floor/unit and/or counseling patient: [place] [address] INT INP/OBS CARE 3/75MIN Patient Type Established History Comprehensive Exam Comprehensive Medical Decision Making High Complexity Diagnoses Respiratory syncytial virus (RSV) B33.8 Abdominal pain R10.31 Abdominal location: right lower quadrant Stroke-like symptom R29.90 Human immunodeficiency virus (HIV) disease B20 Elevated troponin I level R79.89 Lower back pain M54.5 Tremor R25.1 Extrapyramidal and movement disorder, unspecified G25.9 Obstructive sleep apnea G47.33 Polyneuropathy associated with underlying disease G63 Peripheral neuropathy type: polyneuropathy associated with underlying disease Bipolar 1 disorder F31.9 H/O amphetamine abuse F15.11 (2) Abdominal pain Abdominal location: right lower quadrant Qualified Code(s): R10.31 - Right lower quadrant pain (10) Peripheral neuropathy Peripheral neuropathy type: polyneuropathy associated with underlying disease Qualified Code(s): G63 - Polyneuropathy in diseases classified elsewhere
[2023-08-30 14:52] LABS: Troponin I High Sensitivity 24.9 pg/ml (0-20)
[2023-08-30 15:07] LABS: Adenovirus PCR Not Detected (NotDetected); Bordetella parapertussis PCR Not Detected (NotDetected); Bordetella pertussis PCR Not Detected (NotDetected); Chlamydia pneumoniae PCR Not Detected (NotDetected); Coronavirus 229E PCR Not Detected (NotDetected); Coronavirus CoV-2 (COVID19)PCR Not Detected (NotDetected); Coronavirus HKU1 PCR Not Detected (NotDetected); Coronavirus NL63 PCR Not Detected (NotDetected); Coronavirus OC43PCR Not Detected (NotDetected); Human Metapneumovirus PCR Not Detected (NotDetected); Influenza A PCR Not Detected (NotDetected); Influenza B PCR Not Detected (NotDetected); Mycoplasma pneumoniae PCR Not Detected (NotDetected); Parainfluenza Virus 1 PCR Not Detected (NotDetected); Parainfluenza Virus 2 PCR Not Detected (NotDetected); Parainfluenza Virus 3 PCR Not Detected (NotDetected); Parainfluenza Virus 4 PCR Not Detected (NotDetected); Rhinovirus/Enterovirus PCR Not Detected (NotDetected)
[2023-08-30 15:11] LABS: Respiratory Syncytial VirusPCR DETECTED (NotDetected)
[2023-08-30] MEDS ORDERED: LORazepam 0.5 MG in SYRINGE 0.25 ML IV STA (15:36)
--- NOTE | 2023-08-30 16:53 | Magnetic Resonance Report ---
MR brain wo con CLINICAL HISTORY: CVA r/o TECHNIQUE: Multiplanar and multisequence MR images of the brain were obtained without intravenous con trast. Comparison: Comparison is made to MRI brain 06/06/2022 FINDINGS: No Limited evaluation due to patient motion and incomplete acquisition of sequences. Abnormal restric helen diffusion is identified. The white matter is unremarkable. The ventricular system is normal in ap pearance. No mass is seen. There is no mass effect or midline shift. There is no evidence of acute in traparenchymal hemorrhage. No extra axial fluid collections are seen. The corpus callosum, pituitary gland, and cerebellar tonsils appear grossly unremarkable. Flow voids of the major intracranial arterial vessels are identified. Sinus mucosal thickening is see n most prominent in the maxillary and ethmoid sinuses. IMPRESSION: 1. No acute abnormality and in particular no evidence of acute infarct. 2. Sinus disease. ACT 112: Negative or not required by law. Electronically signed by: Leon Mondragon M.D. 08/30/2023 4:52 PM
[2023-08-30] MEDS ORDERED: hydroCHLOROthiazide 25 MG TAB PO PRN (17:28)
[2023-08-30] MEDS ORDERED: DIPHENOXYLATE/ATROPINE 2.5/0.025MG TAB PO PRN (17:28)
[2023-08-30] MEDS ORDERED: ACETAMINOPHEN 325 MG TAB PO PRN (17:28)
[2023-08-30] MEDS ORDERED: LOPERAMIDE HCL 2 MG CAP PO PRN (17:28)
[2023-08-30] MEDS ORDERED: HYDROCORTISONE 2.5% CR 30 GM TUBE EXT PRN (17:28)
[2023-08-30] MEDS ORDERED: ENOXAPARIN INJ 40 MG/0.4 ML SYR SQ SCH (19:00)
[2023-08-30] MEDS: SERTRALINE HCL 100 MG TABLET PO SCH (19:06)
[2023-08-30] MEDS ORDERED: PRAMIPEXOLE DIHYDROCHLO 0.25 MG TAB PO SCH (20:00)
[2023-08-30] MEDS: LITHIUM CARBONATE 300 MG TAB PO SCH (20:12)
[2023-08-30] MEDS: BENZTROPINE MESYLATE 0.5 MG TAB PO SCH (20:12)
[2023-08-30] MEDS: PREGABALIN 150 MG CAP PO SCH (20:18)
[2023-08-30] MEDS ORDERED: FAMOTIDINE 40 MG TABLET PO ONE (21:31)
[2023-08-30] MEDS: guaiFENesin SUGAR FREE 200 MG/10 ML UDC PO PRN (21:57)
[2023-08-31 06:28] LABS: Basophils # (auto) 0.02 K/uL (0.00-0.20); Basophils % (auto) 0.3 %; Eosinophils # (auto) 0.12 K/uL (0.00-0.50); Eosinophils % (auto) 1.8 %; Hematocrit (blood only) 45.1 % (42.0-52.0); Immature Granulocytes # (auto) 0.02 K/uL (0.01-0.20); Immature Granulocytes % (auto) 0.3 %; Lymphocytes # (auto) 1.89 K/uL (1.20-3.40); Mean Corpuscular Hemoglobin 28.8 pg (25.0-34.0); Mean Corpuscular Hgb Conc 33.3 g/dL (32.0-36.0); Mean Corpuscular Volume 86.6 fL (80.0-100.0); Mean Platelet Volume 11.7 fL (9.4-12.4); Monocytes # (auto) 0.47 K/uL (0.11-0.59); Monocytes % (auto) 7.2 %; Neutrophils % (auto) 61.4 %; Platelet Count 128 K/uL (130-400); RDW Coefficient of Variation 14.7 % (11.5-14.5); RDW Standard Deviation 46.7 fL (36.4-46.3); Red Blood Count 5.21 M/uL (4.70-6.10); White Blood Count 6.52 K/ul (4.8-10.8)
[2023-08-31 06:38] LABS: Alanine Aminotransferase 23 U/L (7-52); Alkaline Phosphatase 87 U/L (34-104); Anion Gap 5 (3-11); Aspartate Aminotransferase 28 U/L (13-39); BUN Creatinine Ratio 9.9 (10-20); Bilirubin Direct 0.1 mg/dl (0-0.2); Bilirubin,Total 0.6 mg/dl (0.2-1.0); Blood Urea Nitrogen 9 mg/dl (6-23); C Reactive Protein < 0.50 mg/dl (0-0.5); Calcium 8.9 mg/dl (8.6-10.3); Carbon Dioxide 26 mmol/L (21-32); Chloride 107 mmol/L (98-107); Creatinine Clr Calc Pharmacy 110.6 ml/min; Est GFR (African American) 108.8 ml/min; Est GFR (Non-African American) 93.9 ml/min; Glucose 89 mg/dl (70-99(Fasting)); Potassium 3.9 mmol/L (3.5-5.1); Sodium 138 mmol/L (136-145); Total Protein 7.1 gm/dl (6.0-8.3)
[2023-08-31 06:45] LABS: Troponin I High Sensitivity 18.3 pg/ml (0-20)
--- NOTE | 2023-08-31 07:25 | Hospitalist Progress Note ---
Date of Service August 31, 2023 Assessment & Plan (1) Respiratory syncytial virus (RSV): Plan: Cliinical sx, cough CXR NAF, CTA neck shows right apical ground glass changes possible RSV pneumonia/pneumonitis BioFire + RSV on arrival, Droplet/contact isolation precautions Blood cultures Patient received cefepime 2000 mg IV in the ED, continue to cover for concomitant CAP with Rocephin 2000 mg IV q24h (2) Abdominal pain: Plan: Pain endorses intermittent RUQ pain; worse with deep breaths Hx of gastric bypass surgery D-dimer negative Lipase WNL Abd/pelvis CT without appendicitis, obstructive stone, or hydronephrosis Acetaminophen 650 mg p.o. q4h as needed for pain/fever (3) Stroke-like symptom: Plan: Patient was a stroke alert in the ED on 08/30 Woke up with confusion, and difficulty with speech/word finding; no facial droop, or unilateral deficits Head CT NAF CTA head/neck revealed no large vessel occlusion or aneurysm, but noted paranasal sinus opacification Brain MRI revealed no acute infarct, but did note sinus disease ("Sinus mucosal thickening is seen most prominent in the maxillary and ethmoid sinuses") Echo on 07/23/2023 revealed LVEF >70%; without evidence of ASD Patient received aspirin 324 mg p.o. in the ED (4) Human immunodeficiency virus (HIV) disease: Plan: Dx in 2001 Last CD4 count at 26L on 06/08/23 Continue Biktarvy (5) Elevated troponin I level: Plan: Troponin elevated at 24.8 --> 25.3 --> 24.9 Clinically, patient denies chest pain EKG revealed sinus bradycardia at 44 bpm and marked T wave abnormality; QTc 483 (6) Lower back pain: Plan: Chronic Continue celecoxib as needed (7) Tremor: Plan: Continue pramipexole, Austedo (8) Extrapyramidal and movement disorder, unspecified: Plan: Continue benztropine (9) Obstructive sleep apnea: Plan: CPAP ordered HS Patient reports he does not normally use at home, and declined in the room, however we morning once that is available (10) Peripheral neuropathy: Plan: Continue pregabalin (11) Bipolar 1 disorder: Plan: Continue sertraline, lithium (12) H/O amphetamine abuse: Plan DNR/DNI VTE PPx: SCDs, Lovenox 40 mg SQ q24h Admission and Anticipated Discharge Date Admission Date: August 30, 2023 Results & Data Results & Data Vital Signs (Past 12 Hours) Vital Signs Temp Pulse Pulse Resp BP BP Pulse Ox 08/31/23 03:13 98.4 F 51 L 18 144/79 H 94 08/30/23 23:22 98.6 F 50 L 18 131/77 94 08/30/23 23:00 44 L 08/30/23 20:00 08/30/23 19:50 98.1 F 49 L 20 162/99 H 93 O2 Del Method 08/31/23 03:13 Room Air 08/30/23 23:22 Room Air 08/30/23 23:00 08/30/23 20:00 Room Air 08/30/23 19:50 Room Air PG Care Time/CCT Total # of Minutes Spent Total Time Spent with Patient: Total time spent is greater than 50% in coordination of care (as documented) at patient's floor/unit and/or counseling patient: Coding Diagnoses Respiratory syncytial virus (RSV) B33.8 Abdominal pain R10.31 Abdominal location: right lower quadrant Stroke-like symptom R29.90 Human immunodeficiency virus (HIV) disease B20 Elevated troponin I level R79.89 Lower back pain M54.5 Tremor R25.1 Extrapyramidal and movement disorder, unspecified G25.9 Obstructive sleep apnea G47.33 Polyneuropathy associated with underlying disease G63 Peripheral neuropathy type: polyneuropathy associated with underlying disease Bipolar 1 disorder F31.9 H/O amphetamine abuse F15.11 (2) Abdominal pain Abdominal location: right lower quadrant Qualified Code(s): R10.31 - Right lower quadrant pain (10) Peripheral neuropathy Peripheral neuropathy type: polyneuropathy associated with underlying disease Qualified Code(s): G63 - Polyneuropathy in diseases classified elsewhere
[2023-08-31] MEDS: LITHIUM CARBONATE 300 MG TAB PO SCH (08:43)
[2023-08-31] MEDS: guaiFENesin SUGAR FREE 200 MG/10 ML UDC PO PRN (08:43)
[2023-08-31] MEDS: BENZTROPINE MESYLATE 0.5 MG TAB PO SCH (08:43)
[2023-08-31] MEDS: PREGABALIN 150 MG CAP PO SCH (08:43)
[2023-08-31] MEDS: SERTRALINE HCL 100 MG TABLET PO SCH (08:44)
[2023-08-31] MEDS ORDERED: VIBEGRON 75 MG TAB PO SCH (09:00)
[2023-08-31] MEDS ORDERED: CeleBREX 200 MG CAP PO SCH (09:00)
[2023-08-31] MEDS ORDERED: ADVANCED PROBIOTIC 1250 MG CAPSULE PO SCH (09:00)
[2023-08-31] MEDS ORDERED: cefTRIAXone SODIUM 2,000 MG in DEXTROSE 5 % MINI-B 50 ML IV SCH (13:00)
--- NOTE | 2023-08-31 15:11 | Discharge Summary ---
Date of Service August 31, 2023 Admission HPI Per Admitting Provider Vijay is a 58yo male with PMH of tremor, memory loss, RICHARD, OA, IBS, migraine, esophageal reflux, HTN, SNHL of both ears, amphetamine abuse, and HIV. He presented for increased confusion and slurred speech the morning of 08/30. Patient reports that the confusion started last night on 08/29, as well as stomach pain. He then woke up with confusion, difficulty speaking, and stomach pain and decided to come to the hospital. He endorses a dry cough x 1 week. Stomach pain is on his right upper quadrant, and radiates to the right flank, and occasionally transverse across the epigastric region. He rates the pain 12 out of 10 at present, and describes it as intermittent, sharp, and stabbing. Pain is worse with inspiration. He has a difficult time getting comfortable in the bed. No history of kidney stones. He reports no prior experiences like this. He did not take any pain medication at home. Furthermore, he did not take any of his morning medications. Patient's [id number] (Brittani) is at the bedside and provides additional history. Patient has been living with [id number] for the past year. Mother not notes that there is an acute change in his cognitive baseline, as he has had difficulty communicating this morning. He is oriented to location, name, but not birthday or time. He notes he has had fevers over the past week. His teeth grinding and tremors are ongoing. He denies smoking, tobacco use, vaping, and recreational drug use. He reports that he would like to be DNR/DNI, and that his medical proxy would be his [place]. Patient is hypertensive at 147/99, as well as bradycardic at 46 bpm at time of admission ED Course: Lorazepam 1 mg IV Cefepime 2000 mg IV Aspirin 324 mg p.o. IVF ROS: Patient endorses intermittent fevers this past week, dizziness, headaches (ch ronic), difficulty speaking this morning, pleuritic CP when coughing, intermittent RUQ abdominal pain, and increased urinary frequency. Patient denies facial droop, chest pain, burning with urination, or numbness/tingling going down legs or arms. Notable PMH: Hx of gastric bypass surgery Still going to wound clinic for left leg injury in 03/2023 PMH of HIV (dx in 2001); taking medicine daily Per patient, no PMH of HI, DVT/PE, CVA, (unsure about hx of seizures) Fam Hx: brother had issues with seizures No hx of appendicitis Principal Diagnosis rsv pneumonia probable secondary pneumonia weakness secondary to viral infection Discharge Exam lungs are with scan rales but predominantly clear abd is soft and non tender Discharge Data Allergies Allergy/AdvReac Type Severity Reaction Status Date / Time mercury (elemental) Allergy Intermediate Facial Verified 08/29/23 11:22 swelling, Nausea/Vomiting strawberry Allergy Intermediate rash Verified 08/29/23 11:22 Fish Containing Products Allergy Verified 08/29/23 11:22 fish derived Allergy Verified 08/29/23 11:22 fish oil Allergy Verified 08/29/23 11:22 shrimp AdvReac Intermediate ALL Verified 08/29/23 11:22 SEAFOOD D/T MERCURY RELATED. doxepin AdvReac Unknown CAN'T Verified 08/29/23 11:22 REMEMBER TOO LONG AGO Consultations 08/30/23 13:16 ED Decision to Admit Stat Ordered Studies 08/30/23 11:10 CT angio head w con Stat CT angio neck with con Stat CT head/brain wo con Stat 08/30/23 11:17 CT abd pelvis IV con only Stat 08/30/23 14:23 MRI Brain [MR brain wo con] Stat Hospital Course (1) Respiratory syncytial virus (RSV): Cliinical sx, cough CXR NAF, CTA neck shows right apical ground glass changes possible RSV pneumonia/pneumonitis BioFire + RSV on arrival, Droplet/contact isolation precautions Blood cultures negative at time of discharge Patient received cefepime 2000 mg IV in the ED, continue to cover for concomitant CAP with azithromycin at discharge (2) Abdominal pain: Pain endorses intermittent RUQ pain; now resolved attributed to rsv Hx of gastric bypass surgery D-dimer negative Lipase WNL Abd/pelvis CT without appendicitis, obstructive stone, or hydronephrosis Acetaminophen 650 mg p.o. q4h as needed for pain/fever (3) Stroke-like symptom: Patient was a stroke alert in the ED on 08/30 Woke up with confusion, and difficulty with speech/word finding; no facial droop, or unilateral deficits Head CT NAF CTA head/neck revealed no large vessel occlusion or aneurysm, but noted paranasal sinus opacification Brain MRI revealed no acute infarct, but did note sinus disease ("Sinus mucosal thickening is seen most prominent in the maxillary and ethmoid sinuses") Echo on 07/23/2023 revealed LVEF >70%; without evidence of ASD Patient received aspirin 324 mg p.o. in the ED (4) Human immunodeficiency virus (HIV) disease: Dx in 2001 Last CD4 count at 26L on 06/08/23 Continue Biktarvy (5) Elevated troponin I level: Troponin elevated at 24.8 --> 25.3 --> 24.9, demand ischemia Clinically, patient denies chest pain EKG revealed sinus bradycardia at 44 bpm and marked T wave abnormality; QTc 483 (6) Lower back pain: Chronic Continue celecoxib as needed (7) Tremor: Continue pramipexole, Austedo (8) Extrapyramidal and movement disorder, unspecified: Continue benztropine (9) Obstructive sleep apnea: CPAP Patient reports he does not normally use CPAP at home, and declined in the room (10) Peripheral neuropathy: Continue pregabalin (11) Bipolar 1 disorder: Continue sertraline, lithium (12) H/O amphetamine abuse: Plan DNR/DNI Total Time Total Time Spent Total Time Spent (In Minutes): It required greater than 30 minutes to prepare this patient for discharge. Discharge Plan Discharge Items Patient Disposition: Home - Self-Care Reason For Visit: RUQ PAIN, CONFUSION, DRY COUGH Discharge Diagnosis: respiratory syncytial virus infection pneumonia Activity: Per Instructions section Activity Comment: Slowly increase activity Non-emergency contact: Primary Care Provider Call non-emergency contact if: your symptoms worsen Follow-up/Referrals: Janette Giron PA-C [Physician [employer] Window Screen [employer]er] - 09/05/23 1:30 pm Diet: Regular Addtl Attending Provider Instructions: Respiratory syncytial virus (RSV) causes infections of the lungs and respiratory tract. It's so common that most children have been infected with the virus by age 2. Respiratory syncytial (sin-SISH-ul) virus can also infect adults. In adults and older, healthy children, respiratory syncytial virus (RSV) symptoms are mild and typically mimic the common cold. Self-care measures are usually all that's needed to relieve any discomfort. You will also be treated for possible secondary bacterial pneumonia, this will be with an oral antibiotic Pending Studies at Discharge: No Stand-Alone Forms: My [facility], Smoking Cessation Medications and DC Order Prescriptions: New azithromycin 250 mg tablet See Rx Instructions .ROUTE .COMPLEX Qty: 6 0RF Rx Instructions: For 250 mg dose pack: take 500 mg today (day 1), then 250 mg for 4 days (days 2-5) Continued ketoconazole 2 % shampoo 1 applic TOP .COMPLEX Qty: 120 5RF Rx Instructions: 1 applic TOP Wash scalp twice weekly as directed. Let sit 3-5 minutes prior to rinsing.; sumatriptan succinate [Imitrex] 100 mg tablet 100 mg PO .COMPLEX PRN (Reason: migraine headache) 30 Days Qty: 9 5RF Rx Instructions: take one at onset of headache, may repeat in 2 hours prn, limit 2-3 days / week PRN ketoconazole 2 % cream 1 applic topical DAILY Qty: 30 2RF Rx Instructions: Apply to areas of the face once daily as directed. hydrochlorothiazide 25 mg tablet 25 mg PO QAM PRN (Reason: Fluid Retention) Qty: 90 1RF diphenoxylate-atropine [Lomotil] 2.5-0.025 mg tablet 2 tab PO TID PRN (Reason: diarrhea) Qty: 90 5RF sildenafil (pulm.hypertension) 20 mg tablet 20 mg PO PRN Qty: 30 2RF Rx Instructions: administer half hour up to four hours before activity on an empty stomach. May start with one tab and go up to 5 as needed. Do not exceed 100mg. cyanocobalamin (vitamin B-12) 1,000 mcg tablet, sublingual 1,000 mcg sublingual QAM Qty: 90 1RF cephalexin 500 mg capsule 500 mg PO qid Qty: 56 0RF Rx Instructions: filled 08/03/23 cholecalciferol (vitamin D3) 125 mcg (5,000 unit) capsule 125 mcg PO DAILY Qty: 90 3RF hydrocortisone 2.5 % cream 1 applic TOP DAILY PRN (Reason: SKIN IRRITATION NEEDED) Rx Instructions: Apply to areas of the face daily for up to 7 days as needed for flaring. Biktarvy 50-200-25 mg tablet 1 tab PO QAM Qty: 30 2RF sertraline [Zoloft] 25 mg tablet 200 mg PO DAILY mirabegron 50 mg tablet extended release 24 hr 50 mg PO DAILY Qty: 90 1RF pregabalin 300 mg capsule 300 mg PO BID 30 Days Qty: 60 5RF Hold Instructions: not takes Vitron-C 65 mg iron- 125 mg tablet,delayed release (DR/EC) 1 tab PO BID Qty: 60 11RF pramipexole [Mirapex] 0.125 mg tablet 0.125 mg PO DAILY Qty: 30 2RF Rx Instructions: take 1-2 hours before HS benztropine 0.5 mg tablet 0.5 mg PO BID Qty: 60 2RF Rx Instructions: from psych Austedo 12 mg tablet 12 mg PO BID lithium carbonate 300 mg capsule See Rx Instructions .ROUTE .COMPLEX Rx Instructions: 600mg BID celecoxib 100 mg capsule 200 mg PO QAM acetaminophen [Acetaminophen Extra Strength] 500 mg Tablet 500 mg PO Q6H PRN (Reason: Pain) Advanced Probiotic 625 mg (10 billion cell) Capsule 2 cap PO DAILY Qty: 30 0RF loperamide 2 mg capsule 2 mg PO TID PRN (Reason: Diarrhea) Discharge Orders: Discharge Order (Routine); Ordered 08/31/23 Ordered By: Kit Irizarry Admission Data Admit Date/Time: 08/30/23 14:39 Attending Provider: Kit Irizarry Admit Provider: Kit Irizarry Primary Care Provider: Felicity Colon V. Other Providers: Ramiro Haines Other Interventions: Discharge Summary Assessment (RN) Last Done: 08/31/23 12:34 Coding Level of Care Code 77973 INP/OBS DISCH >30 MIN Diagnoses Respiratory syncytial virus (RSV) B33.8 Abdominal pain R10.31 Abdominal location: right lower quadrant Stroke-like symptom R29.90 Human immunodeficiency virus (HIV) disease B20 Elevated troponin I level R79.89 Lower back pain M54.5 Tremor R25.1 Extrapyramidal and movement disorder, unspecified G25.9 Obstructive sleep apnea G47.33 Polyneuropathy associated with underlying disease G63 Peripheral neuropathy type: polyneuropathy associated with underlying disease Bipolar 1 disorder F31.9 H/O amphetamine abuse F15.11
[2023-08-31] MEDS ORDERED: [UNRECOGNIZED DRUG - OTHER] SCH (17:42)
--- NOTE | 2023-08-31 22:17 | Electrocardiogram Report ---
Test Reason : Blood Pressure : / mmHG Vent. Rate : 044 BPM Atrial Rate : 044 BPM P-R Int : 182 ms QRS Dur : 098 ms QT Int : 578 ms P-R-T Axes : 061 002 -13 degrees QTc Int : 495 ms Marked sinus bradycardia Prolonged QT Abnormal ECG When compared with ECG of 21-JUN-2023 13:07, OH interval has decreased ST now depressed in Anterior leads T wave inversion now evident in Anterior leads QT has lengthened Confirmed by Diomedes Munoz ([id number]) on 08/31/2023 10:17:04 PM Referred By: REFERRED SELF Confirmed By:Diomedes Munoz
--- NOTE | 2023-09-01 06:31 | Electrocardiogram Report ---
Test Reason : Blood Pressure : / mmHG Vent. Rate : 047 BPM Atrial Rate : 047 BPM P-R Int : 192 ms QRS Dur : 110 ms QT Int : 548 ms P-R-T Axes : 034 029 020 degrees QTc Int : 485 ms Sinus bradycardia T wave abnormality, consider anterior ischemia Prolonged QT Abnormal ECG When compared with ECG of 30-AUG-2023 11:33, Nonspecific T wave abnormality has replaced inverted T waves in Inferior leads Confirmed by Diomedes Munoz ([id number]) on 09/01/2023 6:31:07 AM Referred By: REFERRED SELF Confirmed By:Diomedes Munoz
--- NOTE | 2023-09-06 11:33 | Coding Query ---
CODING QUERY To promote full compliance with coding requirements relating to patient care, provider participation is requested in all cases of general internist and physician leader uncertainty. Please assist us with the question(s) below: Coding Question(s): There is documentation of RSV Pneumonia and probable secondary bacterial pneumonia, as on the Discharge Summary, and there is also documented Human Immunodeficiency Virus (HIV) Disease. The H&P documented, "Human immunodeficiency virus (HIV) disease: Plan: Dx in 2001 Last CD4 count at 26L on 06/08/23 Unlikely opportunistic infection Continue Biktarvy", and, "I discussed this patient with Mj FONTENOT. Patient had viral load checked in June of this year which was essentially undetectable, do not believe the patient is at significantly increased risk for opportunistic infections". There are no Progress Notes, and, upon Discharge Summary, it is not clear if Pneumonia was a manifestation related to the Human Immunodeficiency Virus (HIV) Disease. Please specify below, in your clinical opinion: ( ) Pneumonia(s) are related to/manifestation of Human Immunodeficiency Virus (HIV) Disease ( xxx ) Pneumonia(s) are Not related to/manifestation of Human Immunodeficiency Virus (HIV) Disease Physician's Response(s): Thank you Love Tejeda Principal Diagnosis: "that condition established after study, to be chiefly responsible for occasioning the admission of the patient to the hospital for care." Co-Existing Principal Diagnosis: "when two or more diagnoses equally meet the criteria for principal diagnosis as determined by the circumstances of admission, diagnostic work up, and/or therapy provided, and the Alphabetic Index, Tabular List, or another coding guideline does not provide sequencing direction, any one of the diagnoses may be sequenced first." "When the physician has documented what appears to be a current diagnosis in the body of the record, but has not included the diagnosis in the final diagnostic statement, the physician should be asked whether the diagnosis should be added." (Source [facility]oding [facility] 2 QTR90. p3-4) ALETHA
== END 2023-08-31 15:15 | disposition home or self-care (01) | DRG 194 ==
LOC: ED 10:59 → 2E 14:39

== ENCOUNTER 2023-10-15 10:26 | Observation (INO) ==
[2023-10-15 11:05] LABS: iSTAT Creatinine 0.9 mg/dl (0.6-1.3); iSTAT Hemoglobin 14.3 g/dl (14.0-18.0); iSTAT Ionized Calcium 1.23 mmol/l (1.12-1.32); iSTAT Potassium 4.8 mmol/L (3.3-5.0)
[2023-10-15 11:10] LABS: Basophils # (auto) 0.02 K/uL (0.00-0.20); Basophils % (auto) 0.4 %; Eosinophils # (auto) 0.14 K/uL (0.00-0.50); Eosinophils % (auto) 2.7 %; Hematocrit (blood only) 43.6 % (42.0-52.0); Hemoglobin 14.5 g/dl (14.0-18.0); Immature Granulocytes # (auto) 0.01 K/uL (0.01-0.20); Immature Granulocytes % (auto) 0.2 %; Lymphocytes # (auto) 1.44 K/uL (1.20-3.40); Lymphocytes % (auto) 27.6 %; Mean Corpuscular Hemoglobin 30.3 pg (25.0-34.0); Mean Corpuscular Hgb Conc 33.3 g/dL (32.0-36.0); Mean Platelet Volume 11.5 fL (9.4-12.4); Monocytes # (auto) 0.34 K/uL (0.11-0.59); Monocytes % (auto) 6.5 %; Neutrophils # (auto) 3.26 K/uL (1.40-6.50); Neutrophils % (auto) 62.6 %; Platelet Count 134 K/uL (130-400); RDW Coefficient of Variation 14.5 % (11.5-14.5); RDW Standard Deviation 48.2 fL (36.4-46.3); Red Blood Count 4.79 M/uL (4.70-6.10); White Blood Count 5.21 K/ul (4.8-10.8)
[2023-10-15 11:28] LABS: Troponin I High Sensitivity 3.3 pg/ml (0-20)
[2023-10-15 11:39] LABS: Partial Thromboplastin Time 28 Seconds (21-31); Prothrombin Time 10.9 Seconds (9.0-12.0)
--- NOTE | 2023-10-15 12:02 | Emergency Department Note ---
Impression & Plan Acute confusion, Metabolic encephalopathy, HIV (human immunodeficiency virus infection), Cellulitis of leg without foot, left ED Provider Note NAME: STIVEN GRIGGS AGE: 58 SEX: M ARRIVES VIA: Walk-In INFORMANT: Patient ED PROVIDER(S): Anurag Pinzon MD CHIEF COMPLAINT: Confusion PLAN: Disposition: Admit MEDICAL DECISION MAKING: The patient is a pleasant 58-year-old gentleman with a past medical history of HIV on Sharma therapy, bipolar disorder, restless leg syndrome, chronic nonhealing left lower leg wound, RICHARD, peripheral neuropathy who presents to the emergency department via walk-in accompanied by friend/ex-partner for evaluation of confusion which was most pronounced today but did begin yesterday morning. Patient cannot recall the year. In triage, he cannot state the president and chief commercial officer but did so to this provider. He denies any recent fevers, chills, cough congestion, GI or symptoms. They report that his chronic nonhealing surgical wound has overall been improving but recently began to have new redness around the site over the past several days. On my evaluation the patient is anxious appearing with chronic tremors of all extremities. He is alert and oriented to self, place and situation. He cannot tell me the year but does reply that [place]uvia is the president. He is moving all extremities equally without focal weakness. There is erythema and mild warmth of the anterior left lower leg surrounding patient's chronic left lower extremity wound. There is no significant induration, crepitus. There is no overt area of fluctuance. EKG without overt acute ischemia. CXR negative for acute cardiopulmonary process per my personal preliminary review/interpretation. WBC, H/H and platelets within normal limits. Chemistry without metabolic acidosis electrolytes LFTs unremarkable. Lactic acid 1.7 down to 0.8, both within normal limits. Magnesium is within normal limits. LFTs unremarkable. High-sensitivity troponin 3.3, within normal limits. Procalcitonin is undetectable. TSH within normal limits. UA without evidence of infection. [place] is therapeutic at 0.8. Medical alcohol was undetectable. CT of the head and CT of the head and neck were performed were negative for acute abnormalities. Upon reevaluation patient did feel some improvement after IV fluid ration however still with impairment in mental status where he is unable to tell me the year which is not his baseline. Similar mental status changes have occurred in the past in the setting of infection per records. Thus, the patient and his friend ex-partner are in agreement with plan for admission for further management. Treatment for acute on chronic wound infection/cellulitis initiated with IV ceftriaxone and daptomycin. Case was discussed with Dr. Perez, [facility] hospitalist, who will evaluate the patient for admission. Further management per admitting team. Triage Nursing notes reviewed and agree them. Prior/external medical records reviewed Vital Signs: reviewed Differential diagnosis: Infection, hypoglycemia, electrolyte abnormalities, overdose, toxicologic, cardiac sources, intracerebral event, neurologic, trauma, as well as other pathologies. ER treatment provided: See below. Diagnostics interpreted by me: ECG: Sinus bradycardia, 57 bpm, no ectopy, no overt ST elevation or depression, QTc 441, QRS 106. Cardiac Monitoring: An order for continuous cardiac monitoring was placed and demonstrated Sinus bradycardia, 57 bpm, no ectopy, Laboratory studies: See below Imaging studies: See below Consultation(s): Case was discussed with Dr. Perez, [facility] hospitalist, who will evaluate the patient for admission. HPI: The patient is a pleasant 58-year-old gentleman with a past medical history of HIV on Sharma therapy, bipolar disorder, restless leg syndrome, chronic nonhealing left lower leg wound, RICHARD, peripheral neuropathy who presents to the emergency department via walk-in accompanied by friend/ex-partner for evaluation of confusion which was most pronounced today but did begin yesterday morning. Patient cannot recall the year. In triage, he cannot state the president and chief commercial officer but did so to this provider. He denies any recent fevers, chills, cough congestion, GI or symptoms. They report that his chronic nonhealing surgical wound has overall been improving but recently began to have new redness around the site over the past several days. ROS: See above HPI for pertinent positives & negatives. A total of 10 systems reviewed and were otherwise negative. VITALS:See Below PHYSICAL EXAMINATION: GENERAL: Awake, alert, fatigued/restless-appearing, in no distress HENT: Normocephalic, atraumatic. Oropharynx with dry mucous membranes and otherwise unremarkable. . EYES: Normal conjunctiva. Sclera non-icteric. EOMI. No nystamgus. PEARRL. NECK: Supple. No nuchal rigidity. FROM. No JVD. RESPIRATORY: Clear to auscultation. CARDIAC: Regular rate, normal rhythm. Extremities warm and well perfused. Pulses equal. ABDOMEN: Soft, non-distended. No tenderness to palpation. No rebound or guarding. No masses. RECTAL: Deferred. MUSCULOSKELETAL: Chest examination reveals no tenderness. The back is symmetrical on inspection without obvious abnormality. There is no CVA tenderness to palpation. No joint edema. LOWER EXTREMITIES: Calves are equal size bilaterally and non-tender. Erythema and mild warmth of the anterior left lower leg surrounding patient's chronic left lower extremity wound. There is no significant induration, crepitus. There is no overt area of fluctuance. NEURO: Alert and oriented to self, place and situation. He cannot tell me the year but does reply that Nuvia is the president. He is moving all extremities equally without focal weakness. SKIN: No rash or jaundice noted Anurag Pinzon MD Past Med/Surg History Medical History Cellulitis of leg without foot, left Pneumonia Stroke-like symptom Respiratory syncytial virus (RSV) Abdominal pain Bipolar 1 disorder Lower back pain Human immunodeficiency virus (HIV) disease Dx around 2001 - 2002 Extrapyramidal and movement disorder, unspecified Lightheadedness Shortness of breath Chest pain Surgical wound, non healing Wound cellulitis Hematoma of left lower leg Pain and swelling of left lower extremity Leg edema Tiredness Methamphetamine abuse Left knee sprain Traumatic hematoma of left lower leg Diarrhea Dyskinesia of mouth Obesity Thoracic back pain Sleep apnea Inguinal lymphadenitis Essential tremor Nodule of groin Family history of melanoma Restless leg syndrome Peripheral neuropathy Bipolar disorder Leg swelling Esophageal reflux Spondylosis of cervical region without myelopathy or radiculopathy Vitamin B12 deficiency Vitamin D deficiency disease Depression Kidney stones Surgical History History of incision and drainage (03/28/23) Incision and Drainage with Debridement of Left Lower Extremity(Left) - Rios Dawkins DO S/P cholecystectomy S/P gastric surgery Status post gastric bypass for obesity Family History Mother Diabetes Systemic lupus erythematosus Father Melanoma Myocardial infarction Prostate cancer Other Ulcerative colitis Denies family history of Ovarian cancer Crohn's disease Breast cancer Colorectal cancer Irritable bowel syndrome Social History Smoking Status: Never smoker Do You Dip or Chew Tobacco: No; Hx Alcohol Use: No Hx Substance Use: No Preferred Language: Burkinan Communication Ability: Effective Visual Impairment: No Limitations Hearing Ability: Normal Assistant [employer] Coach Required: No Beliefs That Will Affect Care: None marital status: Current Living Situation: Spouse Current Living Situation Comment: lives with spouse and in-laws in 2 story home current occupational status: disabled Feels Safe at Home: Yes Diet: regular caffeine: Yes Dental Care, Regularly: Yes Physical Activity Frequency: Daily Seatbelt Use: always Sunscreen Use: No Assistive Devices: Glasses Allergies Allergies Allergy/AdvReac Type Severity Reaction Status Date / Time mercury (elemental) Allergy Intermediate Facial Verified 10/15/23 13:41 swelling, Nausea/Vomiting strawberry Allergy Intermediate rash Verified 10/15/23 13:41 Fish Containing Products Allergy Unknown Verified 10/15/23 13:41 fish derived Allergy Unknown Verified 10/15/23 13:41 fish oil Allergy Unknown Verified 10/15/23 13:41 shrimp AdvReac Intermediate ALL Verified 10/15/23 13:41 SEAFOOD D/T MERCURY RELATED. doxepin AdvReac Unknown CAN'T Verified 10/15/23 13:41 REMEMBER TOO LONG AGO Home Meds Home Medications Medication Instructions Recorded Confirmed celecoxib 100 mg capsule 200 mg PO QAM PRN Pain 06/21/23 10/15/23 loperamide 2 mg capsule 2 mg PO Q8H PRN Diarrhea 09/20/23 10/15/23 cetirizine 10 mg tablet (Zyrtec) 0 mg PO DAILY PRN allergies 10/15/23 10/15/23 cyanocobalamin (vitamin B-12) 1,000 mcg PO QAM 10/15/23 10/15/23 1,000 mcg sublingual tablet deutetrabenazine 12 mg tablet 12 mg PO BID 10/15/23 10/15/23 (Austedo) diphenoxylate-atropine 2.5 2 tab PO TID PRN diarrhea 10/15/23 10/15/23 mg-0.025 mg tablet (Lomotil) fluticasone propionate 50 1 spray intranasal DAILY 10/15/23 10/15/23 mcg/actuation nasal spray,suspension (Flonase Allergy Relief) iron,carbonyl 65 mg-vitamin C 125 1 tab PO QAM RLS 10/15/23 10/15/23 mg tablet,delayed release (Vitron-C) lithium carbonate 300 mg capsule 600 mg PO AMHS 10/15/23 10/15/23 methocarbamol 750 mg tablet 750 mg PO TID PRN muscle spasms 10/15/23 10/15/23 multivitamin 1 tab PO DAILY 10/15/23 10/15/23 pramipexole 0.125 mg tablet 0.125 mg PO DIRECTED .1-2 hr 10/15/23 10/15/23 (Mirapex) before.. sertraline 100 mg tablet 100 mg PO QAM 10/15/23 10/15/23 Previous Rx's Medication Instructions Recorded bictegravir 50 mg-emtricitabine 1 tab PO QAM #30 tabs 01/12/20 200 mg-tenofovir alafenam 25 mg tablet (Biktarvy) sumatriptan succinate 100 mg 100 mg PO .COMPLEX PRN migraine 05/04/23 tablet (Imitrex) headache 30 days #9 tabs sildenafil (pulm.hypertension) 20 20 mg PO PRN #30 tabs 06/05/23 mg tablet benztropine 0.5 mg tablet 0.5 mg PO BID #60 tabs 07/25/23 pregabalin 300 mg capsule 300 mg PO BID 30 days #60 caps 07/25/23 cholecalciferol (vitamin D3) 125 125 mcg PO DAILY #90 caps 08/07/23 mcg (5,000 unit) capsule mirabegron 50 mg tablet,extended 50 mg PO DAILY #90 tabs 08/07/23 release 24 hr hydrochlorothiazide 25 mg tablet 25 mg PO QAM PRN Fluid Retention 10/05/23 #90 tabs Results & Data (ED) Vital Signs Vital Signs - 24 hr 10/15/23 10:31 10/15/23 10:45 10/15/23 10:58 Temperature 36.5 C Temperature Source Temporal Artery Scan Pulse Rate 58 L 58 L Pulse Rate [Apical] Respiratory Rate 16 Respiratory Effort / Characteristics Non-Labored Respiratory Depth Normal Respiratory Pattern Blood Pressure 185/103 H Blood Pressure [Right Arm] Blood Pressure Mean 130 Blood Pressure Mean [Right Arm] Pulse Oximetry 100 98 Oxygen Delivery Method Room Air Room Air Oxygen Flow Rate Sepsis Recent Fever Within 48 Hours No Sepsis New/Unexplained Change in Mental Status N/A Sepsis Action Taken by Nursing No Action Required 10/15/23 11:58 10/15/23 11:59 10/15/23 14:04 Temperature Temperature Source Pulse Rate Pulse Rate [Apical] 53 L 56 L Respiratory Rate 17 18 Respiratory Effort / Characteristics Non-Labored Respiratory Depth Normal Normal Respiratory Pattern Regular Blood Pressure Blood Pressure [Right Arm] 146/83 H 162/87 H Blood Pressure Mean Blood Pressure Mean [Right Arm] 104 112 Pulse Oximetry 99 98 96 Oxygen Delivery Method Room Air Room Air Room Air Oxygen Flow Rate 0 Sepsis Recent Fever Within 48 Hours Sepsis New/Unexplained Change in Mental Status Sepsis Action Taken by Nursing 10/15/23 16:27 10/15/23 18:27 Temperature Temperature Source Pulse Rate Pulse Rate [Apical] 54 L 56 L Respiratory Rate 18 19 Respiratory Effort / Characteristics Non-Labored Non-Labored Respiratory Depth Normal Normal Respiratory Pattern Regular Blood Pressure Blood Pressure [Right Arm] 145/93 H 157/93 H Blood Pressure Mean Blood Pressure Mean [Right Arm] 110 114 Pulse Oximetry 97 98 Oxygen Delivery Method Room Air Room Air Oxygen Flow Rate Sepsis Recent Fever Within 48 Hours Sepsis New/Unexplained Change in Mental Status Sepsis Action Taken by Nursing Laboratory Data Attestation: I reviewed the patient's lab results. 10/15/23 10:45 10/15/23 10:45 Lab Results 10/15/23 10/15/23 10/15/23 Range/Units 10:45 10:50 10:52 WBC 5.21 (4.8-10.8) K/ul RBC 4.79 (4.70-6.10) M/uL Hgb 14.5 (14.0-18.0) g/dl POC Hgb 14.3 (14.0-18.0) g/dl Hct 43.6 (42.0-52.0) % POC Hct 42 (42-52) % MCV 91.0 (80.0-100.0) fL MCH 30.3 (25.0-34.0) pg MCHC 33.3 (32.0-36.0) g/dL RDW Std Deviation 48.2 H (36.4-46.3) fL RDW Coeff of [place] 14.5 (11.5-14.5) % Plt Count 134 (130-400) K/uL MPV 11.5 (9.4-12.4) fL Immature Gran % (Auto) 0.2 % Neut % (Auto) 62.6 % Lymph % (Auto) 27.6 % [place] % (Auto) 6.5 % Eos % (Auto) 2.7 % Baso % (Auto) 0.4 % Neut # (Auto) 3.26 (1.40-6.50) K/uL Lymph # (Auto) 1.44 (1.20-3.40) K/uL [place] # (Auto) 0.34 (0.11-0.59) K/uL Eos # (Auto) 0.14 (0.00-0.50) K/uL Baso # (Auto) 0.02 (0.00-0.20) K/uL Immature Gran # (Auto) 0.01 (0.01-0.20) K/uL PT 10.9 (9.0-12.0) Seconds INR 1.0 (0.9-1.1) APTT 28 (21-31) Seconds PTT Ratio 1.0 POC Sodium 141 (135-144) mmol/L Sodium 139 (136-145) mmol/L POC Potassium 4.8 (3.3-5.0) mmol/L Potassium 4.7 (3.5-5.1) mmol/L POC Chloride 105 (101-112) mmol/L Chloride 108 H (98-107) mmol/L Carbon Dioxide 26 (21-32) mmol/L POC Total CO2 25 (24-31) mmol/L Anion Gap 5 (3-11) POC Anion Gap 16.0 (16-25) mmol/L POC BUN 16 (7-18) mg/dl BUN 15 (6-23) mg/dl Creatinine 0.88 (0.6-1.4) mg/dl POC Creatinine 0.9 (0.6-1.3) mg/dl Est Cr Clr Drug Dosing 118.4 ml/min Est GFR ( Amer) 111.3 ml/min Est GFR (Non-Af Amer) 96.0 ml/min BUN/Creatinine Ratio 17.0 (10-20) Glucose 101 H (70-99(Fasting)) mg/dl POC Glucose 105 H (70-99) mg/dl POC Glucose (other) 101 H (70-99) mg/dl Lactate 1.7 (0.4-2.0) mmol/L Calcium 9.3 (8.6-10.3) mg/dl POC Ioniz Calcium Walter 1.23 (1.12-1.32) mmol/l Magnesium 1.9 (1.7-2.4) mg/dl Total Bilirubin 0.7 (0.2-1.0) mg/dl AST 17 (13-39) U/L ALT 21 (7-52) U/L Alkaline Phosphatase 91 (34-104) U/L Troponin I High Sens 3.3 (0-20) pg/ml C-Reactive Protein < 0.50 (0-0.5) mg/dl Total Protein 7.0 (6.0-8.3) gm/dl Albumin 4.5 (3.4-5.0) gm/dl Globulin 2.5 (2.5-4.0) gm/dl Albumin/Globulin Ratio 1.8 (0.9-2) Procalcitonin < 0.05 (0-0.5) ng/ml TSH (0.300-4.500) uIu/ml Urine Color Urine Appearance (Clear) Urine pH (4.5-7.5) Ur Specific [place] (1.000-1.030) Urine Protein (Negative) Urine Glucose (UA) (Negative) Urine Ketones (Negative) Urine Blood (Negative) Urine Nitrite (Negative) Urine Bilirubin (Negative) Urine Urobilinogen (Negative) Ur Leukocyte Esterase (Negative) [place] 0.8 (0.6-1.2) mmol/L Ethyl Alcohol mg/dL (<10.0) mg/dl 10/15/23 10/15/23 10/15/23 Range/Units 11:26 11:53 12:12 WBC (4.8-10.8) K/ul RBC (4.70-6.10) M/uL Hgb (14.0-18.0) g/dl POC Hgb (14.0-18.0) g/dl Hct (42.0-52.0) % POC Hct (42-52) % MCV (80.0-100.0) fL MCH (25.0-34.0) pg MCHC (32.0-36.0) g/dL RDW Std Deviation (36.4-46.3) fL RDW Coeff of [place] (11.5-14.5) % Plt Count (130-400) K/uL MPV (9.4-12.4) fL Immature Gran % (Auto) % Neut % (Auto) % Lymph % (Auto) % [place] % (Auto) % Eos % (Auto) % Baso % (Auto) % Neut # (Auto) (1.40-6.50) K/uL Lymph # (Auto) (1.20-3.40) K/uL [place] # (Auto) (0.11-0.59) K/uL Eos # (Auto) (0.00-0.50) K/uL Baso # (Auto) (0.00-0.20) K/uL Immature Gran # (Auto) (0.01-0.20) K/uL PT (9.0-12.0) Seconds INR (0.9-1.1) APTT (21-31) Seconds PTT Ratio POC Sodium (135-144) mmol/L Sodium (136-145) mmol/L POC Potassium (3.3-5.0) mmol/L Potassium (3.5-5.1) mmol/L POC Chloride (101-112) mmol/L Chloride (98-107) mmol/L Carbon Dioxide (21-32) mmol/L POC Total CO2 (24-31) mmol/L Anion Gap (3-11) POC Anion Gap (16-25) mmol/L POC BUN (7-18) mg/dl BUN (6-23) mg/dl Creatinine (0.6-1.4) mg/dl POC Creatinine (0.6-1.3) mg/dl Est Cr Clr Drug Dosing ml/min Est GFR ( Amer) ml/min Est GFR (Non-Af Amer) ml/min BUN/Creatinine Ratio (10-20) Glucose (70-99(Fasting)) mg/dl POC Glucose (70-99) mg/dl POC Glucose (other) (70-99) mg/dl Lactate 0.8 (0.4-2.0) mmol/L Calcium (8.6-10.3) mg/dl POC Ioniz Calcium Walter (1.12-1.32) mmol/l Magnesium (1.7-2.4) mg/dl Total Bilirubin (0.2-1.0) mg/dl AST (13-39) U/L ALT (7-52) U/L Alkaline Phosphatase (34-104) U/L Troponin I High Sens (0-20) pg/ml C-Reactive Protein (0-0.5) mg/dl Total Protein (6.0-8.3) gm/dl Albumin (3.4-5.0) gm/dl Globulin (2.5-4.0) gm/dl Albumin/Globulin Ratio (0.9-2) Procalcitonin (0-0.5) ng/ml TSH 2.243 (0.300-4.500) uIu/ml Urine Color Yellow Urine Appearance Clear (Clear) Urine pH 6.0 (4.5-7.5) Ur Specific [place] 1.014 (1.000-1.030) Urine Protein Negative (Negative) Urine Glucose (UA) Negative (Negative) Urine Ketones Negative (Negative) Urine Blood Negative (Negative) Urine Nitrite Negative (Negative) Urine Bilirubin Negative (Negative) Urine Urobilinogen Negative (Negative) Ur Leukocyte Esterase Negative (Negative) [place] (0.6-1.2) mmol/L Ethyl Alcohol mg/dL < 10.0 (<10.0) mg/dl Administered Medications Discontinued Medications Sodium Chloride (Nss) 1,000 mls @ 999 mls/hr IV .Q1H1M ONE Stop: 10/15/23 12:21 Last Infusion: 10/15/23 13:30 Dose: Infused Documented By: Admin: 10/15/23 12:11 Dose: 999 mls/hr Documented By: TERESA Ceftriaxone Sodium (Rocephin) 2,000 mg in 50 mls @ 100 mls/hr IV NOW STA Stop: 10/15/23 16:08 Last Infusion: 10/15/23 16:57 Dose: Infused Documented By: Admin: 10/15/23 16:22 Dose: 100 mls/hr Documented By: ALEKSANDER Daptomycin 525 mg/ Syringe 10.5 mls @ 5.25 mls/min IV Q24H [facility]; Protocol Stop: 10/17/23 15:44 Last Admin: 10/15/23 16:44 Dose: 5.25 mls/min Documented By: ALEKSANDER Ioversol (Optiray 320 125ml) 112 ml IV ONCE ONE Stop: 10/15/23 13:40 Last Admin: 10/15/23 13:40 Dose: 112 ml Documented By: SHMUEL Lorazepam (Lorazepam 1 Mg Tab) 0.5 mg SL NOW STA Stop: 10/15/23 13:57 Last Admin: 10/15/23 14:04 Dose: 0.5 mg Documented By: ALEKSANDER Imaging Data Radiologist's Impression: Chest X-Ray 10/15/23 10:47 XR chest 1V portable HISTORY: Sepsis COMPARISON: Chest 08/30/2023. FINDINGS: There are low lung volumes. No pneumothorax. No pleural effusions. The heart is mildly enlarged. There is mild elevation the right hemidiaphragm. Prior cholecystectomy. No focal lung consolidations to suggest a pneumonia. No evidence for pulmonary edema. IMPRESSION: 1. Mild cardiomegaly. 2. Low lung volumes with mild elevation of the right hemidiaphragm. ACT 112: Negative or not required by law. Electronically signed by: Rajendra Diaz M.D. 10/15/2023 12:[address] 10/15/23 13:02 CT OF THE HEAD WITHOUT CONTRAST CLINICAL HISTORY: Confusion. COMPARISON STUDY: MRI of the brain June 06, 2022 and August 30, 2023. Head CT and CTA of the head August 30, 2023. TECHNIQUE: Helical axial images of the head were obtained without IV contrast. Automated exposure control was utilized for the study. A dose lowering technique was utilized adhering to the principles of ALARA. FINDINGS: No acute intracranial hemorrhage, midline shift or mass effect is present. The ventricular system is unremarkable. The basal cisterns are patent. No extra-axial collections are present. There are no findings to suggest acute dural sinus thrombosis or acute territorial infarct. No significant calvarial abnormalities are present. Sinus opacification has significantly improved. IMPRESSION: No acute intracranial findings. ACT 112: Negative or not required by law. Electronically signed by: Dwight Hercules M.D. 10/15/2023 1:50 PM Head CTA 10/15/23 13:02 CT angio head w con CLINICAL HISTORY: 58 years-old Male with confusion. Acutely altered mental status COMPARISON STUDY: Head CT of same day TECHNIQUE: Following the IV administration of 112 cc of Optiray, CT angiogram of the brain was performed from the skull base to the vertex. Images are reviewed in the axial, sagittal, and coronal planes. 3-D MIPS images are created and assessed. IV contrast was administered without complication. All measurements were obtained according to NASCET criteria. A dose lowering technique was utilized adhering to the principles of ALARA. FINDINGS: CT ANGIOGRAM OF THE BRAIN: The imaged bilateral internal carotid arteries are patent. The bilateral anterior and middle cerebral arteries are also patent. The vertebrobasilar system and posterior cerebral arteries are widely patent with the diminutive left vertebral artery terminating into the PICA. origin of the posterior cerebral arteries. There is no aneurysm, high-grade stenosis, or proximal branch occlusion identified. Dural sinuses appear patent. Mild mucosal thickening of the paranasal sinuses. Dental caries with periapical cysts. Mastoid air cells are clear. IMPRESSION: Unremarkable CTA of the head. ACT 112: Negative or not required by law. The above report was generated using voice recognition software. It may contain grammatical, syntax or spelling errors. Electronically signed by: Keaton Gonzalez M.D. 10/15/2023 2:15 PM Neck CTA 10/15/23 13:02 NECK CTA HISTORY: confusion TECHNIQUE: Multiaxial CT images of the neck were performed following the intravenous administration of contrast to evaluate the major cervical vessels. 3D/MIP images were also obtained. Sagittal and coronal reformats were reviewed. All measurements were calculated based on NASCET criteria. A dose lowering technique was utilized adhering to the principles of ALARA. COMPARISON STUDY: Neck CTA 08/30/2023.. FINDINGS: The aortic arch and proximal great vessels are widely patent. There is no significant stenosis, occlusion, or dissection identified within the bilateral common carotid, internal carotid, or vertebral arteries. The distal left vertebral artery terminates into the left posterior inferior cerebral artery. This is considered to be a normal variant. 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 IMPRESSION: No significant stenosis, occlusion, or dissection identified within the carotid or vertebral arteries. ACT 112: Negative or not required by law. Electronically signed by: Rajendra Diaz M.D. 10/15/2023 1:59 PM Discharge Plan Visit Data Chief Complaint: Confusion Stated Complaint: CONFUSION ED Provider: Anurag Pinzon Discharge Problem: Acute confusion, Metabolic encephalopathy, HIV (human immunodeficiency virus infection), Cellulitis of leg without foot, left Forms Stand Alone Forms: My [facility] Prescriptions Prescriptions: No Action sumatriptan succinate [Imitrex] 100 mg tablet 100 mg PO .COMPLEX PRN (Reason: migraine headache) 30 Days Qty: 9 5RF Rx Instructions: take one at onset of headache, may repeat in 2 hours prn, limit 2-3 days / week PRN sildenafil (pulm.hypertension) 20 mg tablet 20 mg PO PRN Qty: 30 2RF Rx Instructions: administer half hour up to four hours before activity on an empty stomach. May start with one tab and go up to 5 as needed. Do not exceed 100mg. cholecalciferol (vitamin D3) 125 mcg (5,000 unit) capsule 125 mcg PO DAILY Qty: 90 3RF hydrochlorothiazide 25 mg tablet 25 mg PO QAM PRN (Reason: Fluid Retention) Qty: 90 1RF loperamide 2 mg capsule 2 mg PO Q8H PRN (Reason: Diarrhea) Biktarvy 50-200-25 mg tablet 1 tab PO QAM Qty: 30 2RF mirabegron 50 mg tablet extended release 24 hr 50 mg PO DAILY Qty: 90 1RF pregabalin 300 mg capsule 300 mg PO BID 30 Days Qty: 60 5RF Hold Instructions: not takes benztropine 0.5 mg tablet 0.5 mg PO BID Qty: 60 2RF Rx Instructions: from psych celecoxib 100 mg capsule 200 mg PO QAM PRN (Reason: Pain) multivitamin Tablet 1 tab PO DAILY sertraline 100 mg tablet 100 mg PO QAM methocarbamol 750 mg tablet 750 mg PO TID PRN (Reason: muscle spasms) lithium carbonate 300 mg capsule 600 mg PO AMHS cetirizine [Zyrtec] 10 mg Tablet 0 mg PO DAILY PRN (Reason: allergies) fluticasone propionate [Flonase Allergy Relief] 50 mcg/actuation [place],Suspension 1 spray INTRANASAL DAILY Rx Instructions: administer into each nostril [place] 12 mg Tablet 12 mg PO BID diphenoxylate-atropine [Lomotil] 2.5-0.025 mg tablet 2 tab PO TID PRN (Reason: diarrhea) cyanocobalamin (vitamin B-12) 1,000 mcg tablet, sublingual 1,000 mcg PO QAM Vitron-C 65 mg iron- 125 mg tablet,delayed release (DR/EC) 1 tab PO QAM pramipexole [Mirapex] 0.125 mg tablet 0.125 mg PO DIRECTED Rx Instructions: take 1-2 hours before HS Referrals Referrals: Felicity Colon MD [Primary Care Provider] - Discharge Problem: HIV (human immunodeficiency virus infection) Qualifiers: HIV symptom status: unspecified Qualified Code(s): B20 - Human immunodeficiency virus [HIV] disease
[2023-10-15] MEDS: SODIUM CHLORIDE 0.9% 1,000 ML IV ONE (12:11)
[2023-10-15 12:14] LABS: Albumin Level 4.5 gm/dl (3.4-5.0); Bilirubin,Total 0.7 mg/dl (0.2-1.0); Calcium 9.3 mg/dl (8.6-10.3); Magnesium 1.9 mg/dl (1.7-2.4); Potassium 4.7 mmol/L (3.5-5.1)
--- NOTE | 2023-10-15 12:16 | XRay Report ---
XR chest 1V portable HISTORY: Sepsis COMPARISON: Chest 08/30/2023. FINDINGS: There are low lung volumes. No pneumothorax. No pleural effusions. The heart is mildly enla rged. There is mild elevation the right hemidiaphragm. Prior cholecystectomy. No focal lung consolida tions to suggest a pneumonia. No evidence for pulmonary edema. IMPRESSION: 1. Mild cardiomegaly. 2. Low lung volumes with mild elevation of the right hemidiaphragm. ACT 112: Negative or not required by law. Electronically signed by: Rajendra Diaz M.D. 10/15/2023 12:15 PM
[2023-10-15 12:20] LABS: Albumin Globulin Ratio 1.8 (0.9-2); Creatinine Clr Calc Pharmacy 118.4 ml/min; Est GFR (African American) 111.3 ml/min; Globulin 2.5 gm/dl (2.5-4.0)
[2023-10-15 12:22] LABS: Appearance Urine Clear (Clear); Bilirubin Urine Negative (Negative); Blood Urine Negative (Negative); Color Urine Yellow; Glucose Urine UA Negative (Negative); Ketones Urine Negative (Negative); Leukocyte Esterase Urine Negative (Negative); Nitrite Urine Negative (Negative); Protein Urine Negative (Negative); Specific Gravity Urine 1.014 (1.000-1.030); Urobilinogen Urine Negative (Negative)
[2023-10-15] MEDS: OPTIRAY 320 125ml IV ONE (13:40)
--- NOTE | 2023-10-15 13:51 | CT Scan Report ---
CT OF THE HEAD WITHOUT CONTRAST CLINICAL HISTORY: Confusion. COMPARISON STUDY: MRI of the brain June 06, 2022 and August 30, 2023. Head CT and CTA of the head August 30, 2023. TECHNIQUE: Helical axial images of the head were obtained without IV contrast. Automated exposure con trol was utilized for the study. A dose lowering technique was utilized adhering to the principles o f ALARA. FINDINGS: No acute intracranial hemorrhage, midline shift or mass effect is present. The ventricular system is unremarkable. The basal cisterns are patent. No extra-axial collections are present. There are no findings to suggest acute dural sinus thrombosis or acute territorial infarct. No significant calvarial abnormalities are present. Sinus opacification has significantly improved. IMPRESSION: No acute intracranial findings. ACT 112: Negative or not required by law. Electronically signed by: Dwight Hercules M.D. 10/15/2023 1:50 PM
--- NOTE | 2023-10-15 14:01 | CT Scan Report ---
NECK CTA HISTORY: confusion TECHNIQUE: Multiaxial CT images of the neck were performed following the intravenous administration o f contrast to evaluate the major cervical vessels. 3D/MIP images were also obtained. Sagittal and cor onal reformats were reviewed. All measurements were calculated based on NASCET criteria. A dose low ering technique was utilized adhering to the principles of ALARA. COMPARISON STUDY: Neck CTA 08/30/2023.. FINDINGS: The aortic arch and proximal great vessels are widely patent. There is no significant sten osis, occlusion, or dissection identified within the bilateral common carotid, internal carotid, or v ertebral arteries. The distal left vertebral artery terminates into the left posterior inferior cereb ral artery. This is considered to be a normal variant. 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 IMPRESSION: No significant stenosis, occlusion, or dissection identified within the carotid or vertebral arteries . ACT 112: Negative or not required by law. Electronically signed by: Rajendra Diaz M.D. 10/15/2023 1:59 PM
--- OUTSIDE RECORDS SUMMARY | 2023-10-15 14:02 | External Medical Summary | Summary of Care ---
Author Name Unknown Organization [facility] Address [address] [place] [address] Phone [phone] Care Team Providers Care Linen Room Houseperson Name Role Phone Felicity Lorenz MD [facility] Care Provider Reason for Visit * Reason Comments Depression Anxiety * - Authorized Specialty Diagnoses / Procedures Referred By Inderjit t Referred To Contact Referral ID Status Reason Start Date Expiration Date V isits Requested Visits Authorized [id number] Authorized 09/08/[phone] Encounter Details Date Type Department Care Team (Late st Contact Info) Description 10/08/2023 11:00 AM [facility] [address] [place] [address] Lynne Hobson, [facility] [address], [place] [id number] Bipolar affective disorder, currently depressed, moderate ([facility])* Allergies Active Allergy Reactions Criticality Noted Date Comments Mercury 01/13/2014 Pollen 03/09/2014 Shellfish Allergy Nausea/vomiting 01/08/2014 [place] Extract Edema face/lips/tongue High 05/12 documented as of this encounter (statuses as of 10/08/2023) Medications Medication Sig Dispensed Refills Start Date End Date Status LITHIUM CARBONATE 300 MG PO CAPS Take by mouth. 2 capsules in AM - 2 capsules in PM 0 Active CLARITIN 10 MG PO TABS Take 1 Tablet by mouth in the morning. 0 Active LOPERAMIDE HCL 2 MG PO CAPS Take 1 Capsule by mouth 4 times a day as needed for Diarrhea. 0 Active Bictegravir-Emtricit ab-Tenofov 50-200-25 MG Oral Tablet Take 1 Tablet by mouth daily. 0 Active Sertraline HCl 100 MG Oral Tablet Take 1 Tablet by mouth in the morning. 200 Mg in morning . 0 Active Vitamin B-12 100 MCG Oral Tablet (vitamin B-12) Take 1 Tablet by mouth in the morning. 0 Active Vitamin D (Cholecalciferol) 10 MCG (400 UNIT) Oral Tablet Chewable Take 1 Tablet by mouth in the morning. 0 Active rOPINIRole HCl 3 MG Oral Tablet Take 1 Tablet by mouth every evening. 0 Active Pregabalin 100 MG Oral Capsule (Lyrica) Take 1 Capsule by mouth in the morning and 1 Capsule before bedtime. 0 Active Diphenoxylate-Atropi ne 2.5-0.025 MG Oral Tablet Take 1 Tablet by mouth 4 times a day as needed for Diarrhea. 0 Active Lumateperone Tosylate 42 MG Oral Capsule Take 1 Capsule by mouth daily. 0 Active Ketoconazole 1 % External Shampoo Apply topically to affected area . Apply to scalp 0 Active SUMAtriptan Succinate 25 MG Oral Tablet (Imitrex) Take 1 Tablet by mouth every 2 hours as needed for Migraine. 0 Active CPAP every night at bedtime. 0 Active Benztropine Mesylate 0.5 MG Oral Tablet (Cogentin) Take 1 Tablet by mouth in the morning and 1 Tablet before bedtime. 0 Active Austedo 12 MG Oral Tablet (Deutetrabenazine) Take one tablet by mouth twice daily 60 Tablet 0 12/28/2022 Active Cariprazine HCl 1.5 & 3 MG Oral Capsule Therapy Pack (Vraylar) Take 1.5 mg by mouth in the morning. 0 Active hydroCHLOROthiazide 25 MG Oral Tablet (Hydrodiuril) Take 1 Tablet by mouth in the morning. 0 Active hydrOXYzine HCl 25 MG Oral Tablet Take 1 Tablet by mouth daily as needed for Itching. 0 Active Tamsulosin HCl 0.4 MG Oral Capsule (Flomax) Take 1 Capsule by mouth in the morning. 0 Active oxyCODONE HCl 5 MG Oral Tablet (Oxy IR) Take 1 Tablet by mouth every 8 hours as needed for severe pain 15 Tablet 0 03/19/2023 Active Austedo 12 MG Oral Tablet (Deutetrabenazine) take by mouth twice daily 60 Tablet 0 04/30/2023 Active Austedo 12 MG Oral Tablet (Deutetrabenazine) Take 1 tablet (12mg) by mouth twice daily 60 Tablet 0 06/05/2023 Active Austedo 12 MG Oral Tablet (Deutetrabenazine) Take 1 tablet by mouth twice daily. 60 Tablet 0 09/26/2023 Active documented as of this encounter (statuses as of 10/08/2023) Active Problems Problem Noted Date Diagnosed Date Open wound 03/07/2023 Bipolar disorder 03/07/2023 Anxiety disorder, unspecified 03/07/2023 [facility] OTHER*[id number] 03/10/2014 HTN, goal to be determined 05/09/2013 Nocturnal hypoxemia 05/09/2013 Overview: 11/11/13 oxygen at 2 liters bled through CPAP Mild obstructive sleep apnea 05/09/2013 Overview: 04/2013 CPAP 11 cwp Jon Obesity, morbid (more than 1 00 lbs over ideal weight or BMI > 40) 02/22/2010 Overview: Per Obesity Protocol, #19 ICD-10 update of inactive term Herpes zoster 11/16/2007 HIV disease documented as of this encounter (statuses as of 10/08/2023) Resolved Problems Problem Noted Date Diagnosed Date Resolved Date Necrosis 03/08/2023 03/19/2023 DVT prophylaxis 04/01/2014 05/05/2014 documented as of this encounter (statuses as of 10/08/2023) Immunizations Name Administration Dates Next Due HEP A - Hepatitis A (Adult > 18 yrs) 05/07/2006, 11/09/2005 Hepatitis B, 20+ yrs 05/07/2006,01/18/2006,11/09 PPD 12/09/2007 Pneumococcal Polysaccharide PPV23 (Pneumovax) 11/09/2005 TD - Tetanus/Diptheria (ADULT) 03/13/2004 TDAP (age 11 and older)(Adacel) 06/01/2014 documented as of this encounter Social History Tobacco Use Types Packs/Day Years Used Date Smoking Tobacco: Former Cigarettes 0.3 15 0 05/14/1995 - 07/11/2009 Smokeless Tobacco: Never Comments:age 27 Alcohol Use Standard Drinks/Week Comments Yes 0 (1 standard drink = 0.6 oz pur e alcohol) rarely Hunger Vital Sign Answer Date Recorded Within the past 12 months, y ou worried that your food would run out before you got the money to buy more. Never true 04/12/20 Within the past 12 months, t he food you bought just didn't last and you didn't have money to get more. Never true 04/12/2023 Sex and Gender Information Value Date Recorded Sex Assigned at Male 07/16/2023 11:27 PM EST Gender Identity Male 07/16/2023 11:27 PM EST Sexual Orientation [place] 10/08/2023 3: 21 PM EST Job Start Date Occupation Industry Not on file Not on file Not on file documented as of this encounter Functional Status Functional Status Response Date of Assess ment Are you deaf or do you have serious difficulty h earing? No 03/07/2023 Are you blind or do you have serious difficulty seeing, even when wearing glasses? No 03/07/2023 Do you have serious difficul ty walking or climbing stairs? (5 years old or older) No 03/07/2023 Do you have difficulty dress ing or bathing? (5 years old or older) No 03/07/2023 Because of a physical, menta l, or emotional condition, do you have difficulty doing errands alone such as visiting a doctor s office or shopping? (15 years old or older) No 03/07/20 Cognitive Status Response Date of Assessm ent Because of a physical, menta l, or emotional condition, do you have serious difficulty concentrating, remembering, or making decisions? (5 years old or older) No 03/07/2023 documented as of this encounter Progress Notes * Lynne Hobson, MICHELLE - 10/08/2023 11:00 AM EST Patient location: HOME. I was not in a hospital or clinic location. After connecting through televideo, patient was verified with two unique identifiers. Patient (or authorized legal authorization representative) was then informed that this was a Telemedicine visit and being conducted confidentially over secure lines. Methods to assure confidentiality were taken. Patient acknowledged consent and understanding of privacy and security of the Telemedicine visit. The patient agreed to participate. My office door was closed. No one else was in the room with me. I informed the patient that I have reviewed their record in [facility] and presented the opportunity for them to ask any questions regarding the visit today. The patient agreed to participate. Provider reviewed elements of Outpatient Services Description including limits of confidentiality, how to contact the department, risks and benefits of treatment and consent for treatment. [facility] is committed to coordinated care through an integrated delivery system and shared medicalrecord. Since our patients are seen both in primary care and behavioral health (as well as other specialties), each provider has immediate access to information to enable collaboration across the continuum. Start Time: 110:00 AM Stop Time: 11:53 AM Total direct [id number] time: 53 minutes OUTPATIENT BEHAVIORAL HEALTH EVALUATION [place] [id number] 10/08/2023 7:24 AM Referring Provider: Felicity Vigil MD Length of visit: 53 minutes. Diagnosis: bipolar disorder Psych Diagnostic Evaluation: CPT: 68729 REASON FOR REFERRAL Vijay Bower is 58 year old. Referred by PCP for Anxiety and Depression BRIEF SUMMARY OF ASSESSMENT CASE DISPOSITION/RECOMMENDATIONS Vijay Bower would benefit from individual outpatient therapy for the primary presenting concern(s) of bipolar disorder. Treatment recommendations and associated risks/benefits and alternative treatments as well as forgoing treatment were discussed. See BH Therapy Treatment Plan in "Plans" section. Recommend referral for None Vijay Bower agreed to plan and was scheduled/referred accordingly: yes PRESENTING PROBLEM Pt reported he has received psychiatric services since he was in his twenties when he was first diagnosed with Bipolar Disorder I. Pt reported he has been hospitalized five times since that time. Pt reported he has experienced suicidal ideation in the past and was last hospitalized in Aug 2023. Pt reported that he has been prescribed several different medications but has always taken [place] which has helped address his symptoms. Pt reported he was raised by both his parents and he has one brother. Pt reported that for many years he was productive: he had a job, a relationship and a car. In 2011 both his parents were diagnosed with cancer. Pt took a leave from his job to care for them. They only several months after their diagnoses. Since then, patient stated he has had trouble regaining normalcy in his life. Pt reported he and his have been together for twenty years and for the last six years. Pt shared that in 2018 his told him he was unhappy and wanted a divorce. They tried marital counseling at that time. They are still together but the patient reported that his goes back and forth. Pt shared that his has his own mental health issues. Pt stated his goal for therapy is to regain some normalcy in his life: to work, to have his own apartment. SYMPTOMS Mood: depressed Silvia/Hypomania: No Interest: anhedonia Energy: anergia Appetite: increased Concentration: difficulty with focus and attention Psychomotor changes: psychomotor agitation Anxiety: Anxious cognitions, Neurological Problems/Hx of head injury: No Trauma Hx: traumatic events, Delusions: No Hallucinations: No SYMPTOM MEASURES Patient Health Questionnaire 9 & Generalized Anxiety Disorder 7 Over the last 2 weeks or more, how often have you been bothered by any of the following problems? 0-1-2-3 1. Little interest or pleasure in doing things 3 2. Feeling down, depressed, or hopeless 3 3. Trouble falling asleep, staying asleep, or sleeping too much 2 4. Feeling tired or having little energy 3 5. Poor appetite or overeating 2 6. Feeling bad about yourself -- or that you are a failure or have let yourself or others down 3 7. Trouble concentrating on things, such as reading a book or watching television 3 8. Feeling you were moving or speaking so slowly or were very fidgety and moving around in such a way that you or others could have noticed 3 9. Thoughts that you would be better off or of hurting yourself in some way 1 PHQ-9 TOTAL SCORE 23 1. Feeling nervous, anxious, or on edge 3 2. Been unable to control or stop worrying 3 3. Worried too much about different things 3 4. Trouble relaxing 2 5. Been so restless that it is hard to sit still 3 6. Becoming easily annoyed or irritable 2 7. Feeling afraid as if something awful might happen 3 JERICHO-7 TOTAL SCORE 19 MENTAL HEALTH HISTORY Past treatment: Inpatient: Therapy, Outpatient: Psychotropic medications, Prior psychiatric diagnosis: History of inpatient psychiatric admissions: Medication compliance: Current psychiatric medications: History of SI attempts: Current treatment: Psychotropic medications, including History of SI attempts: yes Family history: Mother and brother. CURRENT MEDICATIONS: Current Outpatient Medications Medication Sig Dispense Refill LITHIUM CARBONATE 300 MG PO CAPS Take by mouth. 2 capsules in AM - 2 capsules in PM CLARITIN 10 MG PO TABS Take 1 Tablet by mouth in the morning. LOPERAMIDE HCL 2 MG PO CAPS Take 1 Capsule by mouth 4 times a day as needed for Diarrhea. Aoelpigqwxb-Sdcldndzzm-Cesxqbq 50-200-25 MG Oral Tablet Take 1 Tablet by mouth daily. Sertraline HCl 100 MG Oral Tablet Take 1 Tablet by mouth in the morning. 200 Mg in morning . Vitamin B-12 100 MCG Oral Tablet (vitamin B-12) Take 1 Tablet by mouth in the morning. Vitamin D (Cholecalciferol) 10 MCG (400 UNIT) Oral Tablet Chewable Take 1 Tablet by mouth in the morning. rOPINIRole HCl 3 MG Oral Tablet Take 1 Tablet by mouth every evening. Pregabalin 100 MG Oral Capsule (Lyrica) Take 1 Capsule by mouth in the morning and 1 Capsule beforebedtime. Diphenoxylate-Atropine 2.5-0.025 MG Oral Tablet Take 1 Tablet by mouth 4 times a day as needed for Diarrhea. Lumateperone Tosylate 42 MG Oral Capsule Take 1 Capsule by mouth daily. Ketoconazole 1 % External Shampoo Apply topically to affected area . Apply to scalp SUMAtriptan Succinate 25 MG Oral Tablet (Imitrex) Take 1 Tablet by mouth every 2 hours as needed for Migraine. CPAP every night at bedtime. Benztropine Mesylate 0.5 MG Oral Tablet (Cogentin) Take 1 Tablet by mouth in the morning and 1 Tablet before bedtime. Austedo 12 MG Oral Tablet (Deutetrabenazine) Take one tablet by mouth twice daily 60 Tablet 0 Cariprazine HCl 1.5 & 3 MG Oral Capsule Therapy Pack (Vraylar) Take 1.5 mg by mouth in the morning. hydroCHLOROthiazide 25 MG Oral Tablet (Hydrodiuril) Take 1 Tablet by mouth in the morning. hydrOXYzine HCl 25 MG Oral Tablet Take 1 Tablet by mouth daily as needed for Itching. Tamsulosin HCl 0.4 MG Oral Capsule (Flomax) Take 1 Capsule by mouth in the morning. oxyCODONE HCl 5 MG Oral Tablet (Oxy IR) Take 1 Tablet by mouth every 8 hours as needed for severe pain 15 Tablet 0 [place] 12 MG Oral Tablet (Deutetrabenazine) take by mouth twice daily 60 Tablet 0 [place] 12 MG Oral Tablet (Deutetrabenazine) Take 1 tablet (12mg) by mouth twice daily 60 Tablet 0 [place] 12 MG Oral Tablet (Deutetrabenazine) Take 1 tablet by mouth twice daily. 60 Tablet 0 No current facility-administered medications for this visit. HEALTH BEHAVIORS ETOH: None. Illicit Drugs: denied. Medical Cannabis: no Nicotine: Never SOCIAL HISTORY: Relationship status: , 6 years. Quality of Relationship: chaotic/conflictual Living situation: spouse and in-laws Occupation: unemployed. Family of origin composition: both parents Family of origin relationships: good MEDICAL PROBLEMS Past Medical History: Diagnosis Date Anxiety disorder, unspecified 03/07/2023 Bipolar disorder (HCC) 03/07/2023 Chronic gastric ulcer with hemorrhage 1986 [place], [place] Depressive disorder, not elsewhere classified 1991 inpatient [facility] Depressive disorder, not elsewhere classified 2005 inpatient [facility] Herpes zoster 11/08/07 HIV disease ([facility]) 2004 HTN (hypertension) Other forms of epilepsy and recurrent seizures without mention of intractable epilepsy 2007 seizure related to medication. 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 MENTAL STATUS AND BEHAVIORAL OBSERVATIONS Appearance: within normal limits Behavior: appropriate Speech: normal rate Mood: dysthymic Affect: appropriate Thought Process: within normal limits Thought Content: Delusions: No Hallucinations: No Obsessions: No Homicidal: No Suicidal: No Sensorium: alert Cognition: grossly intact Insight: age appropriate Judgment: age appropriate Suicide/Homicidal Assessment [place]-SUICIDE SEVERITY RATING SCALE Frequent Screener Ask questions that are bold and underlined Since Last Contact (Ramón with an X) YES NO Have you actually had thoughts about killing yourself? x If YES, ask the following questions. If NO, go directly to the last question Have you been thinking about how you might do this? Have you had these thoughts and had some intention of acting on them? E.g. I thought about taking an overdose, but I never made a specific plan as to when where or how I would actually do it.and I would never go through with it. Have you started to work out or worked out the details of how to kill yourself? Do you intend to carry out this plan? As opposed to I have the thoughts, but I definitely will not do anything about them. Have you done anything, started to do anything, or prepared to do anything to end your life? Examples: Collected pills, obtained a gun, gave away valuables, wrote a will or suicide note, took out pills but didn't swallow any, held a gun but changed your mind or it was grabbed from your hand,went to the roof but didn't jump; or actually took pills, tried to shoot yourself, cut yourself, tried to hang yourself, etc. x Low Risk Complete or review crisis plan with patient Discuss risk/protective factors and reasons for living Moderate Risk Complete or review crisis plan with patient Discuss risk/protective factors and reasons for living Discuss removal of means High Risk Maintain 1 to 1 monitoring until assessment is completed Evaluate for higher level of care (Inpatient or PHP) Consultation with Emergency Services as appropriate If patient not admitted: Complete or review crisis plan with patient Discuss risk/protective factors and reasons for living Advise removal of means Consider family or collateral contact to promote safety Schedule follow up care consistent with assessment The assessment and plan was based on the information obtained during the appointment. Lynne Hobson LCSW Division of Psychiatry & Behavioral Medicine [facility] [phone] documented in this encounter Plan of Treatment Upcoming Encounters Date Type Department Care Team (Late st Contact Info) Description 10/09/2023 9:20 AM EST Office Visit Podiatry [facility] [address] [address] Dominique Beckham DPM [address] [address] 10/22/2023 1:30 PM EST [facility] [address] [place] [address] Lynne Hobson LCSW [address] [place] [address] Health Maintenance Due Date Last Done Comments MENINGOCOCCAL (MENACTRA/MENVEO) (1 - Risk 2-dose series) 1969 Depression Screening 1979 Albumin/Creatinine Ratio 1985 Hepatitis C Screening 1985 Zoster Vaccines (1 of 2) 1986 Cologuard 2012 Colonoscopy 2012 Colorectal Cancer Screening 2012 Fecal Occult Blood Test 2012 Sigmoidoscopy 2012 Pneumococcal Vaccine: Pediatrics (0 to 5 Years) and At-Risk Patients (6 to 64 Years) (3 - PPSV23 or PCV20) 07/25/2017 07/25/2016, 11/09/2005 Lipid Panel 09/30/2019 09/30/2014, 12/31/2013 COVID-19 Vaccine ( - 2022- season) 2023 05/03/2022, 09/30/2021, 01/05/2021, Additional history exists Influenza Vaccine (FLU shot) (#1) 2023 06/06/2021, 07/22/2020, 07/09/2019, Additional history exists GFR 03/16/2024 03/16/2023, 02/2023, 03/14/2023, Additional history exists DTaP,Tdap,and Td Vaccines (2 - Td or Tdap) 06/01/2024 06/01/2014, 03/13/2004 Diabetes Screening 03/16/2026 03/16/2023, 0 03/15/2023, 03/14/2023, Additional history exists Hepatitis B Completed 05/07/2006, 01/08, 11/09/2005 GARDASIL-HPV IMMUNIZATION SERIES Aged Out No longer eligible based on patient's age to complete this topic documented as of this encounter Medical Devices Not on filedocumented as of this encounter Visit Diagnoses Diagnosis Bipolar affective disorder, currently depressed, moderate (HCC)- Primary Bipolar I disorder, most recent episode (or current) depressed, moderate documented in this encounter Advance Directives Latest Code Status on File Code Status Date Activated Date Inactivated Comments No Code 03/07/2023 4:41 AM 03/19/2023 5:41 PM This order reflects the patients wishes and were consensually agreed upon. Question Answer Comments Discussion of Advance Directives occurred with: Patient Code Status History Code Status Date Activated Date Inactivated Comments Full Code 03/07/2023 4:09 AM 03/07/2023 4:41 AM This order reflects the patients wishes and were consensually agreed upon. Question Answer Comments Discussion of Advance Directives occurred with: Patient Full Code 04/30/2014 1:51 PM 05/02/2014 5:51 PM This order reflects the patients wishes and were consensually agreed upon. Question Answer Comments Discussion of Advance Directives occurred with: Patient Does the patient have a Living Will? No Does the patient have Health Care Power of Talent Acquisition Consultant? No Full Code 04/30/2014 10:30 AM 04/30/2014 1:51 PM Question Answer Comments Discussion of Advance Directives occurred with: Not Discussed Does the patient have a Living Will? No Does the patient have Health Care Power of Talent Acquisition Consultant? No Care Teams Linen Room Houseperson Relationship Specialty Start Date End Date Felicity Lorenz MD [address] [address] PCP - General Internal Medicine 04/24/22 documented as of this encounter
--- OUTSIDE RECORDS SUMMARY | 2023-10-15 14:02 | External Medical Summary | Summary of Care ---
Author Name Unknown Organization [facility] Address [address] [place] [address] Phone [phone] Care Team Providers Care Bottom Precipitator Operator Name Role Phone Felicity Lorenz MD [facility] Care Provider Reason for Visit * Reason Comments Follow Up R foot Encounter Details Date Type Department Care Team (Late st Contact Info) Description 10/09/2023 9:20 AM EST Office Visit Podiatry [facility] [address] [place] [id number] Dominique Beckham DPM [address] [place] [id number] Right foot pain*; Plantar wart Allergies Active Allergy Reactions Criticality Noted Date Comments Mercury 01/13/2014 Pollen 03/09/2014 Shellfish Allergy Nausea/vomiting 01/08/2014 Mack Extract Edema face/lips/tongue High 05/12 documented as of this encounter (statuses as of 10/09/2023) Medications Medication Sig Dispensed Refills Start Date [...] day as needed for Diarrhea. 0 Active Bictegravir-Emtricitab -Tenofov 50-200-25 MG Oral Tablet Take 1 Tablet [...] and 1 Capsule before bedtime. 0 Active Diphenoxylate-Atropine 2.5-0.025 MG Oral Tablet Take 1 [...] twice daily. 60 Tablet 0 09/26/2023 Active Celecoxib 200 MG Oral Capsule (CeleBREX) 0 09/21/2023 Active Myrbetriq 50 MG Oral Tablet Extended Release 24 Hour 0 08/16/2023 Active Vitron-C 65-125 MG Oral Tablet (Iron-Vitamin C 65-125 mg per tab) Take 1 Tablet by mouth in the morning. 0 Active Pramipexole Dihydrochloride 0.125 MG Oral Tablet Take 1 Tablet by mouth in the morning and 1 Tablet at noon and 1 Tablet before bedtime. 0 Active documented as of this encounter (statuses as of 10/09/2023) Active Problems Problem Noted Date Diagnosed Date Open wound 03/07/2023 Bipolar disorder 03/07/2023 Anxiety disorder, unspecified 03/07/2023 ADELPHI RESEARCH OTHER*[id number] 03/10/2014 HTN, goal to be determined 05/09/2013 [...] as of this encounter (statuses as of 10/09/2023) Resolved Problems Problem Noted Date Diagnosed Date Resolved Date Necrosis 03/08/2023 03/19/2023 DVT prophylaxis 04/01/2014 05/05/2014 documented as of this encounter (statuses as of 10/09/2023) Immunizations Name Administration Dates Next Due HEP [...] as of this encounter Progress Notes * Dominique Beckham, DPM - 10/09/2023 8:59 AM EST Podiatry Established Patient Note [facility] Name: Vijay Bower : 1965 Date: 10/09/2023 CHIEF COMPLAINT: Right foot lesion HISTORY OF PRESENT ILLNESS: This patient is a 58 year old male who presents today with complaints of a right foot lesion. Pt did well with the previous treatment. Has some complaints of pain when walking. Denies any other complaints. Past Medical History: Diagnosis Date Anxiety disorder, unspecified 03/07/2023 Bipolar disorder (HCC) 03/07/2023 Chronic gastric ulcer with hemorrhage 1986 [place], [place] Depressive disorder, not elsewhere classified 1991 inpatient [facility] Depressive disorder, not elsewhere classified 2005 inpatient [facility] Herpes zoster 11/08/07 HIV disease (HCC) 2003 HTN (hypertension) Other forms of epilepsy and recurrent seizures without mention of intractable epilepsy 2006 seizure related to medication. 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 Past Surgical History: Procedure Laterality Date EGD, FLEXIBLE, DIAGNOSTIC 04/30/2014 ESOPHAGOGASTRODUODENOSCOPY (EGD), FLEXIBLE, TRANSORAL, DIAGNOSTIC performed by Horacio Adams [place] [facility] [place] teeth extraction LAPAROSCOPE PROCEDURE, LIVER 04/30/2014 UNLISTED LAPAROSCOPIC PROCEDURE LIVER performed by Horacio Adams MD [place] [facility] LAPAROSCOPIC GASTRIC BYPASS/DOMINGUEZ-EN-Y 04/30/2014 LAPAROSCOPIC GASTRIC RESTRICTIVE BYPASS DOMINGUEZ EN Y performed by Horacio Adams MD at [facility] LAPAROSCOPY; CHOLECYSTECTOMY 04/30/2014 LAPAROSCOPIC CHOLECYSTECTOMY performed by Horacio Adams MD at [facility] MUSCLE/FASCIA DEBRIDEMENT, FIRST 20 CM2 Left 03/08/2023 DEBRIDEMENT SKIN SUBCUTANEOUS TISSUE AND MUSCLE performed by Kael Crump MD at [facility] MUSCLE/FASCIA DEBRIDEMENT, FIRST 20 CM2 Left 03/11/2023 DEBRIDEMENT SKIN SUBCUTANEOUS TISSUE AND MUSCLE performed by Wilma Zimmer MD at [place] [facility] NEG PRESSURE WOUND THERAPY DME >50 SQ CM Left 03/11/2023 NEGATIVE PRESSURE WOUND THERAPY GREATER THAN 50SQ CM performed by Wilma Zimmer MD [place] [facility] Family History Problem Relation Age of Onset Diabetes Mother Arthritis Mother Other (Other) Mother depression Diabetes Father Stroke Brother stroke at age 12 Social History Socioeconomic History Marital status: Tobacco Use Smoking status: Former Packs/day: 0.25 Years: 15.00 Additional pack years: 0.00 Total pack years: 3.75 Types: Cigarettes Start date: 05/14/1995 Quit date: 07/11/2009 Years since quittin.2 Smokeless tobacco: Never Tobacco comments: age 27 Substance and Sexual Activity Alcohol use: Yes Comment: rarely Drug use: No Sexual activity: Never Social Determinants of Health Food Insecurity: No Food Insecurity (04/12/2023) Hunger Vital Sign Worried About Running Out of Food in the Last Year: Never true Ran Out of Food in the Last Year: Never true Current Outpatient Medications Medication Sig Dispense Refill LITHIUM CARBONATE 300 MG PO CAPS Take by mouth. 2 capsules in AM - 2 capsules in PM CLARITIN 10 MG PO TABS Take 1 Tablet by mouth in the morning. LOPERAMIDE HCL 2 MG PO CAPS Take 1 Capsule by mouth 4 times a day as needed for Diarrhea. Zgrtafjablh-Orcuhrkavb-Dxpxtfg 50-200-25 MG Oral Tablet Take 1 Tablet [...] No current facility-administered medications for this visit. ALLERGIES: Review of patient's allergies indicates: Allergen Reactions Mack Extract Edema face/lips/tongue Mercury Pollen Shellfish Allergy Nausea/vomiting REVIEW OF SYSTEMS: CONSTITUTIONAL: No change in weight, No weakness, No fatigue, and No fevers, sweats, or chills EYE: No recent significant change in vision and No eye pain, redness, discharge EARS: No ear pain and No recent change in hearing NOSE: No history of frequent colds or sinusitis and No nasal stuffiness PULMONARY: No cough, sputum, or hemoptysis, No shortness of breath, and No recent change in breathing CARDIOVASCULAR: No chest pain and No shortness of breath EXTREMITIES: Right foot lesion SKIN/INTEGUMENTARY: No edema, No rash, and No itching NEUROLOGIC: Normal balance, No headaches, No seizures, and No weakness PSYCHIATRIC: No depression, No anxiety, and No psychosis RIGHT FOCUSED PODIATRIC EXAM: Vitals: There were no vitals filed for this visit. General: Patient is awake alert oriented to person place time. No apparent distress. Vascular: DP/PT pulses palpable. CFT < 3 sec 1-5. No edema noted. Temperature gradient is normal warm to cold. Neurologic: Protective sensation intact to light touch. Sensation to sharp/dull is intact. There is no babinskiresponse elicited. Ankle clonus is absent. Dermatological: Skin is normal in appearance with no open lesions or interdigital macerations. Nails 1-5 are normalin length and thickness. Pedal hair is noted. Plantar lesions measuring approximately 1.0 cm x 1.0 cm with petechia and absent skin lines noted sub 5th met base. Musculoskeletal: No POP noted. No pain with active or passive ROM of the digits or ankle joint. Muscle strength is 5/5 for all muscle groups of the lower extremity. DIAGNOSTIC STUDIES: None ASSESSMENT: Right foot pain Plantar wart, right PLAN: - Skin lesion debrided with a 15 blade and confirmed plantar wart. Doing well with much improvement. - Canthrone applied. Instructed to leave dressing intact for 24 hours, then activity to tolerance - Ok to pop blister if forms. - Activity to tolerance - OTC pain medication PRN. - Pt to RTC in 2 weeks. Instructed to call with any problems or questions. Dominique Beckham DPM documented in this encounter Nursing Notes * Veronica Bautista LPN - 10/09/2023 9:07 AM EST Pt presents for follow up wart R FOOT, not painful. Last treated with cantharone 7 weeks ago. documented in this encounter Plan of Treatment Upcoming Encounters Date Type Department Care Team (Late st Contact Info) Description 10/22/2023 1:30 PM EST Telemedicine [facility] [place] [address] [place] [address] Lynne Hobson, [facility] [address] [place] [address] 10/23/2023 2:20 PM EST Office Visit Podiatry [facility] [address] [facility] [place] [address] Dominique Beckham DPM [address] [facility] [place] [id number] Health Maintenance Due Date Last Done Comments [...] Panel 09/30/2019 09/30/2014, 12/31/2013 COVID-19 Vaccine ( season) 2023 05/03/2022, 09/30/2021, 01/05/2021, Additional history exists Influenza Vaccine (FLU shot) (#1) 2023 06/06/2021, 07/22/2020, 07/09/2019, Additional history exists GFR 03/16/2024 03/16/2023, 0702/2023, 03/14/2023, Additional history exists DTaP,Tdap,and Td Vaccines [...] as of this encounter Visit Diagnoses Diagnosis Right foot pain- Primary Pain in limb Plantar wart documented in this encounter Advance Directives Latest [...] the patient have Health Care Power of Cottrell Operator? No Full Code 04/30/2014 10:30 AM 04/30/2014 1:51 PM Question Answer Comments Discussion of Advance Directives occurred with: Not Discussed Does the patient have a Living Will? No Does the patient have Health Care Power of Cottrell Operator? No Care Teams Bottom Precipitator Operator Relationship Specialty Start Date End Date Felicity Lorenz MD [address] [address] PCP - General Internal Medicine 04/24/22 documented as of this encounter
[2023-10-15] MEDS: LORazepam 1 MG TAB SL STA (14:04)
--- NOTE | 2023-10-15 14:16 | CT Scan Report ---
CT angio head w con CLINICAL HISTORY: 58 years-old Male with confusion. Acutely altered mental status COMPARISON STUDY: Head CT of same day TECHNIQUE: Following the IV administration of 112 cc of Optiray, CT angiogram of the brain was perfor med from the skull base to the vertex. Images are reviewed in the axial, sagittal, and coronal planes . 3-D MIPS images are created and assessed. IV contrast was administered without complication. All me asurements were obtained according to NASCET criteria. A dose lowering technique was utilized adherin g to the principles of ALARA. FINDINGS: CT ANGIOGRAM OF THE BRAIN: The imaged bilateral internal carotid arteries are patent. The bilateral anterior and middle cerebral arteries are also patent. The vertebrobasilar system and posterior cerebral arteries are widely hall nt with the diminutive left vertebral artery terminating into the PICA. origin of the posterior cerebral arteries. There is no aneurysm, high-grade stenosis, or proximal branch occlusion identifie d. Dural sinuses appear patent. Mild mucosal thickening of the paranasal sinuses. Dental caries with periapical cysts. Mastoid air ce lls are clear. IMPRESSION: Unremarkable CTA of the head. ACT 112: Negative or not required by law. The above report was generated using voice recognition software. It may contain grammatical, syntax o r spelling errors. Electronically signed by: Keaton Gonzalez M.D. 10/15/2023 2:15 PM
--- NOTE | 2023-10-15 15:43 | Electrocardiogram Report ---
Test Reason : Blood Pressure : / mmHG Vent. Rate : 057 BPM Atrial Rate : 057 BPM P-R Int : 186 ms QRS Dur : 106 ms QT Int : 454 ms P-R-T Axes : 041 -18 017 degrees QTc Int : 441 ms Sinus bradycardia Nonspecific T wave abnormality Anteroseptal leads Otherwise normal ECG When compared with ECG of 31-AUG-2023 05:33, T wave inversion less evident in Anterior leads Confirmed by Horacio Fernandez ([id number]) on 10/15/2023 3:42:36 PM Referred By: REFERRED SELF Confirmed By:Horacio Fernandez
[2023-10-15] MEDS: cefTRIAXone SODIUM 2,000 MG/50 ML BAG IV STA (16:22)
[2023-10-15] MEDS: DAPTOmycin 525 MG in SYRINGE 0 ML IV SCH (16:44)
--- NOTE | 2023-10-15 17:38 | History & Physical Report ---
Date of Service October 15, 2023 Assessment & Plan (1) Cellulitis of leg without foot, left: Plan: Acute cellulitis Wound photo and H&P. Acutely warm, erythematous, and tender consistent with left lower extremity cellulitis without purulence No leukocytosis CRP ordered History of group B strep, some anaerobe, and MSSA Wcx. Patient initially started on MRSA coverage, on review of prior cultures is MSSA with clindamycin resistance. Will continue Rocephin, discontinue daptomycin At last visit 10/05/2023 had been improving and nearly completely resolved. Arterial ultrasounds without significant PAD Continue Rocephin daily he is not hypotensive or tachycardic, and is without severe leukocytosis. Patient is not septic at time of admission (2) Metabolic encephalopathy: Plan: Altered mental status Not oriented to year and easily confused during conversation atypical of patient's baseline CThead without acute findings. CTA of the head and neck without acute findings. No new strokelike symptoms. Patient continues with chronic tremor CXR without acute findings Suspect acute metabolic encephalopathy with cellulitis Cellulitis treatment as above. No meningitic symptoms on admitting assessment. Denies photosensitivity/photosensitivity/neck stiffness Improving at time of bedside reassessment and patient is oriented x 4 (3) HIV (human immunodeficiency virus infection): Plan: History of HIV Continue Biktarvy. Did not take medications today, ordered Adequate CD4 counts 2022, no lymphopenia on admission (4) Bipolar 1 disorder: Plan: Bipolar 1 disorder Continue sertraline, lithium [place] level therapeutic on admission Plan Chronic Stable Issues: Tremor. Continue pramipexole, [facility] RICHARD,. Patient noncompliant with CPAP, declines this History of Present Illness Primary Care Provider: Felicity Colon MD Vijay is a 61-year-old male with a past medical history of chronic tremor, HIV on suppressive therapy, hypertension, IBS, RICHARD, OA, memory loss, and poorly hearing surgical wound who presents with increased confusion and left lower extremity erythema and tenderness suspicious for acute cellulitis with metabolic encephalopathy. Vijay is seen at the bedside. He reports in the last 24 hours he has had chills at night although no fevers, and continued progression of redness, warmth, and tenderness of left lower extremity over the last 24 hours. He reports prior to yesterday the leg was not red and almost completely healed. He denies any purulence or drainage. No weakness or sensory change. No chest pain, chest pressure, shortness of breath, dyspnea. No fevers but he has had chills in the last 24 hours and feels that shakes may be slightly worse. No syncope or presyncope. No nausea/vomiting/diarrhea. Denies medication allergies. No tobacco or alcohol use.Reports he did not take his medications this morning. Daily meds ordered on admission. DNR/DNI discussed at bedside. Allergies Allergy/AdvReac Type Severity Reaction Status Date / Time mercury (elemental) Allergy Intermediate Facial Verified 10/15/23 13:41 swelling, Nausea/Vomiting strawberry Allergy Intermediate rash Verified 10/15/23 13:41 Fish Containing Products Allergy Unknown Verified 10/15/23 13:41 fish derived Allergy Unknown Verified 10/15/23 13:41 fish oil Allergy Unknown Verified 10/15/23 13:41 shrimp AdvReac Intermediate ALL Verified 10/15/23 13:41 SEAFOOD D/T MERCURY RELATED. doxepin AdvReac Unknown CAN'T Verified 10/15/23 13:41 REMEMBER TOO LONG AGO Home Medications Medication Instructions Recorded Confirmed Type bictegravir 50 mg-emtricitabine 1 tab PO QAM #30 tabs 01/12/20 10/15/23 Rx 200 mg-tenofovir alafenam 25 mg tablet (Biktarvy) sumatriptan succinate 100 mg 100 mg PO .COMPLEX PRN migraine 05/04/23 10/15/23 Rx tablet (Imitrex) headache 30 days #9 tabs sildenafil (pulm.hypertension) 20 20 mg PO PRN #30 tabs 06/05/23 10/15/23 Rx mg tablet celecoxib 100 mg capsule 200 mg PO QAM PRN Pain 06/21/23 10/15/23 History benztropine 0.5 mg tablet 0.5 mg PO BID #60 tabs 07/25/23 10/15/23 Rx pregabalin 300 mg capsule 300 mg PO BID 30 days #60 caps 07/25/23 10/15/23 Rx cholecalciferol (vitamin D3) 125 125 mcg PO DAILY #90 caps 08/07/23 10/15/23 Rx mcg (5,000 unit) capsule mirabegron 50 mg tablet,extended 50 mg PO DAILY #90 tabs 08/07/23 10/15/23 Rx release 24 hr loperamide 2 mg capsule 2 mg PO Q8H PRN Diarrhea 09/20/23 10/15/23 History hydrochlorothiazide 25 mg tablet 25 mg PO QAM PRN Fluid Retention 10/05/23 10/15/23 Rx #90 tabs cetirizine 10 mg tablet (Zyrtec) 0 mg PO DAILY PRN allergies 10/15/23 10/15/23 History cyanocobalamin (vitamin B-12) 1,000 mcg PO QAM 10/15/23 10/15/23 History 1,000 mcg sublingual tablet deutetrabenazine 12 mg tablet 12 mg PO BID 10/15/23 10/15/23 History (Austedo) diphenoxylate-atropine 2.5 2 tab PO TID PRN diarrhea 10/15/23 10/15/23 History mg-0.025 mg tablet (Lomotil) fluticasone propionate 50 1 spray intranasal DAILY 10/15/23 10/15/23 History mcg/actuation nasal spray,suspension (Flonase Allergy Relief) iron,carbonyl 65 mg-vitamin C 125 1 tab PO QAM RLS 10/15/23 10/15/23 History mg tablet,delayed release (Vitron-C) lithium carbonate 300 mg capsule 600 mg PO AMHS 10/15/23 10/15/23 History methocarbamol 750 mg tablet 750 mg PO TID PRN muscle spasms 10/15/23 10/15/23 History multivitamin 1 tab PO DAILY 10/15/23 10/15/23 History pramipexole 0.125 mg tablet 0.125 mg PO DIRECTED .1-2 hr 10/15/23 10/15/23 History (Mirapex) before.. sertraline 100 mg tablet 100 mg PO QAM 10/15/23 10/15/23 History Past Med/Surg History Medical History (Updated 10/15/23 @ 17:43 by Igor Perez MD) Cellulitis of leg without foot, left Pneumonia Stroke-like symptom Respiratory syncytial virus (RSV) Abdominal pain Bipolar 1 disorder Lower back pain Human immunodeficiency virus (HIV) disease Dx around 2001 - 2002 Extrapyramidal and movement disorder, unspecified Lightheadedness Shortness of breath Chest pain Surgical wound, non healing Wound cellulitis Hematoma of left lower leg Pain and swelling of left lower extremity Leg edema Tiredness Methamphetamine abuse Left knee sprain Traumatic hematoma of left lower leg Diarrhea Dyskinesia of mouth Obesity Thoracic back pain Sleep apnea Inguinal lymphadenitis Essential tremor Nodule of groin Family history of melanoma Restless leg syndrome Peripheral neuropathy Bipolar disorder Leg swelling Esophageal reflux Spondylosis of cervical region without myelopathy or radiculopathy Vitamin B12 deficiency Vitamin D deficiency disease Depression Kidney stones Surgical History History of incision and drainage (03/28/23) Incision and Drainage with Debridement of Left Lower Extremity(Left) - Rios Dawkins, DO S/P cholecystectomy S/P gastric surgery Status post gastric bypass for obesity Family History Mother Diabetes Systemic lupus erythematosus Father Melanoma Myocardial infarction Prostate cancer Other Ulcerative colitis Denies family history of Ovarian cancer Crohn's disease Breast cancer Colorectal cancer Irritable bowel syndrome Social History Smoking Status: Never smoker Do You Dip or Chew Tobacco: No; Hx Alcohol Use: No Hx Substance Use: No Preferred Language: Haitian Communication Ability: Effective Visual Impairment: No Limitations Hearing Ability: Normal Motor Setter Required: No Beliefs That Will Affect Care: None marital status: Current Living Situation: Spouse Current Living Situation Comment: lives with spouse and in-laws in 2 story home current occupational status: disabled Feels Safe at Home: Yes Diet: regular caffeine: Yes Dental Care, Regularly: Yes Physical Activity Frequency: Daily Seatbelt Use: always Sunscreen Use: No Assistive Devices: Glasses Physical Exam 2 Physical Exam: General: A&Ox3. NAD. Cooperative. HEENT: Atraumatic, normocephalic. Pulm: CTAB A&P. -wheezes, -rales, -rhonchi. Symmetrical chest rise. No increased work of breathing. No respiratory distress. Cardiac: RRR, -mrg. Radial pulses intact and symmetrical. Abdominal: Nontender, nondistended, soft. BS present. Extremities: Mild resting tremor in the hands. Sensation soft touch intact in hands and feet without asymmetry. Left lower extremity with acutely warm, tender, erythematous lower extremity surrounding his prior surgical wound. This is new in the last 24 hours per patient. No purulence. See photo below Results & Data Results & Data Vital Signs (Past 12 Hours) Vital Signs Temp Pulse Pulse Resp BP BP Pulse Ox 10/15/23 16:27 54 L 18 145/93 H 97 10/15/23 14:04 56 L 18 162/87 H 96 10/15/23 11:59 98 10/15/23 11:58 53 L 17 146/83 H 99 10/15/23 10:58 98 10/15/23 10:45 58 L 10/15/23 10:31 36.5 C 58 L 16 185/103 H 100 O2 Del Method O2 Flow Rate 10/15/23 16:27 Room Air 10/15/23 14:04 Room Air 10/15/23 11:59 Room Air 0 10/15/23 11:58 Room Air 10/15/23 10:58 Room Air 10/15/23 10:45 10/15/23 10:31 Room Air PG Care Time/CCT Total # of Minutes Spent Total Time Spent with Patient: Total time spent is greater than 50% in coordination of care (as documented) at patient's floor/unit and/or counseling patient: Coding Level of Care Code 08524 INT INP/OBS CARE 2/55MIN Diagnoses Cellulitis of leg without foot, left L03.116 Metabolic encephalopathy G93.41 HIV (human immunodeficiency virus infection) B20 Bipolar 1 disorder F31.9
[2023-10-15] MEDS ORDERED: CeleBREX 200 MG CAP PO PRN (17:56)
[2023-10-15] MEDS ORDERED: METHOCARBAMOL 750 MG TABLET PO PRN (17:56)
[2023-10-15] MEDS ORDERED: hydroCHLOROthiazide 25 MG TAB PO PRN (17:56)
[2023-10-15] MEDS: LITHIUM CARBONATE 300 MG TAB PO SCH (21:25)
[2023-10-15] MEDS: PRAMIPEXOLE DIHYDROCHLO 0.25 MG TAB PO SCH (21:25)
[2023-10-15] MEDS: BENZTROPINE MESYLATE 0.5 MG TAB PO SCH (21:25)
[2023-10-15] MEDS: ENOXAPARIN INJ 40 MG/0.4 ML SYR SQ SCH (21:26)
[2023-10-15] MEDS: SERTRALINE HCL 100 MG TABLET PO SCH (21:27)
[2023-10-15] MEDS: PREGABALIN 150 MG CAP PO SCH (21:32)
[2023-10-16 06:58] LABS: Basophils # (auto) 0.01 K/uL (0.00-0.20); Basophils % (auto) 0.3 %; Eosinophils # (auto) 0.19 K/uL (0.00-0.50); Eosinophils % (auto) 4.8 %; Hematocrit (blood only) 39.6 % (42.0-52.0); Hemoglobin 13.3 g/dl (14.0-18.0); Immature Granulocytes # (auto) 0.01 K/uL (0.01-0.20); Immature Granulocytes % (auto) 0.3 %; Lymphocytes # (auto) 1.23 K/uL (1.20-3.40); Lymphocytes % (auto) 30.8 %; Mean Corpuscular Hemoglobin 30.2 pg (25.0-34.0); Mean Corpuscular Hgb Conc 33.6 g/dL (32.0-36.0); Mean Corpuscular Volume 89.8 fL (80.0-100.0); Mean Platelet Volume 11.6 fL (9.4-12.4); Monocytes # (auto) 0.37 K/uL (0.11-0.59); Monocytes % (auto) 9.3 %; Neutrophils # (auto) 2.19 K/uL (1.40-6.50); Neutrophils % (auto) 54.5 %; Platelet Count 116 K/uL (130-400); RDW Coefficient of Variation 14.5 % (11.5-14.5); RDW Standard Deviation 47.7 fL (36.4-46.3); Red Blood Count 4.41 M/uL (4.70-6.10)
[2023-10-16] MEDS ORDERED: hydrALAZINE HCL 20 MG/ML VIAL IV PRN (07:40)
[2023-10-16 07:43] LABS: Anion Gap 5 (3-11); BUN Creatinine Ratio 10.7 (10-20); Blood Urea Nitrogen 8 mg/dl (6-23); C Reactive Protein < 0.50 mg/dl (0-0.5); Calcium 8.7 mg/dl (8.6-10.3); Carbon Dioxide 25 mmol/L (21-32); Chloride 110 mmol/L (98-107); Creatinine Clr Calc Pharmacy 132.9 ml/min; Est GFR (African American) 118.9 ml/min; Est GFR (Non-African American) 102.5 ml/min; Glucose 92 mg/dl (70-99(Fasting)); Potassium 3.5 mmol/L (3.5-5.1); Sodium 140 mmol/L (136-145)
--- NOTE | 2023-10-16 07:45 | Hospitalist Progress Note ---
Date of Service October 16, 2023 Assessment & Plan (1) Cellulitis of leg without foot, left: Plan: Acute cellulitis follows at wound center, previous traumatic hematoma Acutely warm, erythematous, and tender consistent with left lower extremity cellulitis without purulence CRP pending History of group B strep, some anaerobe, and MSSA Wcx. Patient initially started on MRSA coverage, on review of prior cultures is MSSA with clindamycin resistance. Will continue Rocephin, discontinue daptomycin At last visit 10/05/2023 had been improving and nearly completely resolved. Arterial ultrasounds without significant PAD Continue Rocephin daily Patient is not septic at time of admission (2) Metabolic encephalopathy: Plan: Altered mental status, secondary to infection Not oriented to year and easily confused during conversation atypical of patient's baseline CThead without acute findings. CTA of the head and neck without acute findings. No new strokelike symptoms. Patient continues with chronic tremor CXR without acute findings Suspect acute metabolic encephalopathy with cellulitis Cellulitis treatment as above. No meningitic symptoms on admitting assessmen t. Denies photosensitivity/photosensitivity/neck stiffness Improving (3) HIV (human immunodeficiency virus infection): Plan: History of HIV Continue Biktarvy. Did not take medications today, ordered Adequate CD4 counts 2022, no lymphopenia on admission (4) Bipolar 1 disorder: Plan: Bipolar 1 disorder Continue sertraline, lithium [place] level therapeutic on admission Plan Chronic Stable Issues: Tremor. Continue pramipexole, [facility] RICHARD,. Patient noncompliant with CPAP, declines this Admission and Anticipated Discharge Date Admission Date: October 15, 2023 Results & Data Results & Data Vital Signs (Past 12 Hours) Vital Signs Temp Pulse Pulse Pulse Resp BP Pulse Ox 10/15/23 20:45 97.4 F L 79 16 155/100 H 95 10/15/23 19:56 52 L 16 155/86 H 91 10/15/23 19:47 53 L O2 Del Method 10/15/23 20:45 Room Air 10/15/23 19:56 Room Air 10/15/23 19:47 PG Care Time/CCT Total # of Minutes Spent Total Time Spent with Patient: Total time spent is greater than 50% in coordination of care (as documented) at patient's floor/unit and/or counseling patient: Coding Diagnoses Cellulitis of leg without foot, left L03.116 Metabolic encephalopathy G93.41 HIV (human immunodeficiency virus infection) B20 HIV symptom status: unspecified Bipolar 1 disorder F31.9 (3) HIV (human immunodeficiency virus infection) HIV symptom status: unspecified Qualified Code(s): B20 - Human immunodeficiency virus [HIV] disease
[2023-10-16] MEDS: ACETAMINOPHEN 500 MG TAB PO PRN (08:09)
[2023-10-16] MEDS: CYANOCOBALAMIN (B-12) 500 MCG TABLET PO SCH (08:11)
[2023-10-16] MEDS: VIBEGRON 75 MG TAB PO SCH (08:12)
[2023-10-16] MEDS: CHOLECALCIFEROL 125 MCG (5,000 UNITS) TAB PO SCH (08:12)
[2023-10-16] MEDS: MULTIVITAMIN TAB PO SCH (08:12)
[2023-10-16] MEDS: KETOROLAC 30 MG/ML VIAL IV ONE (11:32)
--- NOTE | 2023-10-16 17:34 | Discharge Summary ---
Date of Service October 16, 2023 Admission HPI Per Admitting Provider Vijay is a 61-year-old male with a past medical history of chronic tremor, HIV on suppressive therapy, hypertension, IBS, RICHARD, OA, memory loss, and poorly hearing surgical wound who presents with increased confusion and left lower extremity erythema and tenderness suspicious for acute cellulitis with metabolic encephalopathy. Vijay is seen at the bedside. He reports in the last 24 hours he has had chills at night although no fevers, and continued progression of redness, warmth, and tenderness of left lower extremity over the last 24 hours. He reports prior to yesterday the leg was not red and almost completely healed. He denies any purulence or drainage. No weakness or sensory change. No chest pain, chest pressure, shortness of breath, dyspnea. No fevers but he has had chills in the last 24 hours and feels that shakes may be slightly worse. No syncope or presyncope. No nausea/vomiting/diarrhea. Denies medication allergies. No tobacco or alcohol use.Reports he did not take his medications t his morning. Daily meds ordered on admission. DNR/DNI discussed at bedside. Principal Diagnosis Acute cellulitis associate with previous traumatic leg injuryresolved Discharge Exam Left lower leg was examined and there is complete resolution of all erythema there is a lines of demarcation with a permanent marker and there is no erythema spreading from the edge of his scar to this area his skin tone is completely back to normal there is no fluctuance or tenderness Discharge Data Allergies Allergy/AdvReac Type Severity Reaction Status Date / Time mercury (elemental) Allergy Intermediate Facial Verified 10/15/23 13:41 swelling, Nausea/Vomiting strawberry Allergy Intermediate rash Verified 10/15/23 13:41 Fish Containing Products Allergy Unknown Verified 10/15/23 13:41 fish derived Allergy Unknown Verified 10/15/23 13:41 fish oil Allergy Unknown Verified 10/15/23 13:41 shrimp AdvReac Intermediate ALL Verified 10/15/23 13:41 SEAFOOD D/T MERCURY RELATED. doxepin AdvReac Unknown CAN'T Verified 10/15/23 13:41 REMEMBER TOO LONG AGO Consultations 10/15/23 16:25 ED Decision to Admit Stat Ordered Studies Chest X-Ray 10/15/23 10:47 XR chest 1V portable HISTORY: Sepsis COMPARISON: Chest 08/30/2023. FINDINGS: There are low lung volumes. No pneumothorax. No pleural effusions. The heart is mildly enlarged. There is mild elevation the right hemidiaphragm. Prior cholecystectomy. No focal lung consolidations to suggest a pneumonia. No evidence for pulmonary edema. IMPRESSION: 1. Mild cardiomegaly. 2. Low lung volumes with mild elevation of the right hemidiaphragm. ACT 112: Negative or not required by law. Electronically signed by: Rajendra Diaz M.D. 10/15/2023 12:[address] 10/15/23 13:02 CT OF THE HEAD WITHOUT CONTRAST CLINICAL HISTORY: Confusion. COMPARISON STUDY: MRI of the brain June 06, 2022 and August 30, 2023. Head CT and CTA of the head August 30, 2023. TECHNIQUE: Helical axial images of the head were obtained without IV contrast. Automated exposure control was utilized for the study. A dose lowering technique was utilized adhering to the principles of ALARA. FINDINGS: No acute intracranial hemorrhage, midline shift or mass effect is present. The ventricular system is unremarkable. The basal cisterns are patent. No extra-axial collections are present. There are no findings to suggest acute dural sinus thrombosis or acute territorial infarct. No significant calvarial abnormalities are present. Sinus opacification has significantly improved. IMPRESSION: No acute intracranial findings. ACT 112: Negative or not required by law. Electronically signed by: Dwight Hercules M.D. 10/15/2023 1:50 PM Head CTA 10/15/23 13:02 CT angio head w con CLINICAL HISTORY: 58 years-old Male with confusion. Acutely altered mental status COMPARISON STUDY: Head CT of same day TECHNIQUE: Following the IV administration of 112 cc of Optiray, CT angiogram of the brain was performed from the skull base to the vertex. Images are reviewed in the axial, sagittal, and coronal planes. 3-D MIPS images are created and assessed. IV contrast was administered without complication. All measurements were obtained according to NASCET criteria. A dose lowering technique was utilized adhering to the principles of ALARA. FINDINGS: CT ANGIOGRAM OF THE BRAIN: The imaged bilateral internal carotid arteries are patent. The bilateral anterior and middle cerebral arteries are also patent. The vertebrobasilar system and posterior cerebral arteries are widely patent with the diminutive left vertebral artery terminating into the PICA. origin of the posterior cerebral arteries. There is no aneurysm, high-grade stenosis, or proximal branch occlusion identified. Dural sinuses appear patent. Mild mucosal thickening of the paranasal sinuses. Dental caries with periapical cysts. Mastoid air cells are clear. IMPRESSION: Unremarkable CTA of the head. ACT 112: Negative or not required by law. The above report was generated using voice recognition software. It may contain grammatical, syntax or spelling errors. Electronically signed by: Keaton Gonzalez M.D. 10/15/2023 2:15 PM Neck CTA 10/15/23 13:02 NECK CTA HISTORY: confusion TECHNIQUE: Multiaxial CT images of the neck were performed following the intravenous administration of contrast to evaluate the major cervical vessels. 3D/MIP images were also obtained. Sagittal and coronal reformats were reviewed. All measurements were calculated based on NASCET criteria. A dose lowering technique was utilized adhering to the principles of ALARA. COMPARISON STUDY: Neck CTA 08/30/2023.. FINDINGS: The aortic arch and proximal great vessels are widely patent. There is no significant stenosis, occlusion, or dissection identified within the bilateral common carotid, internal carotid, or vertebral arteries. The distal left vertebral artery terminates into the left posterior inferior cerebral artery. This is considered to be a normal variant. 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 IMPRESSION: No significant stenosis, occlusion, or dissection identified within the carotid or vertebral arteries. ACT 112: Negative or not required by law. Electronically signed by: Rajendra Diaz M.D. 10/15/2023 1:59 PM Hospital Course (1) Cellulitis of leg without foot, left: Acute cellulitisresolved follows at wound center, previous traumatic hematoma Acutely warm, erythematous, and tender the symptoms that were present on presentation are completely resolved CRP pending Patient be discharged on cefdinir to complete outpatient course with follow-up with the wound center (2) Metabolic encephalopathy: Altered mental status, subsequent with complete resolution CThead without acute findings. CTA of the head and neck without acute findings. No new strokelike symptoms. Patient continues with chronic tremor CXR without acute findings Suspect acute metabolic encephalopathy with cellulitis however with the rapid turnaround may also suspect possible toxic encephalopathy from agents yet to be determined No meningitic symptoms on admitting assessment. Denies photosensitivity/photosensitivity/neck stiffness Complete resolution (3) HIV (human immunodeficiency virus infection): History of HIV Continue Biktarvy. Did not take medications today, ordered Adequate CD4 counts 2022, no lymphopenia on admission (4) Bipolar 1 disorder: Bipolar 1 disorder Continue sertraline, lithium [place] level therapeutic on admission Plan Chronic Stable Issues: Tremor. Continue pramipexole, [facility] RICHARD,. Patient noncompliant with CPAP, declines this Total Time Total Time Spent Total Time Spent (In Minutes): It required greater than 30 minutes to prepare this patient for discharge. Discharge Plan Discharge Items Patient Disposition: Home - Self-Care Reason For Visit: LLE CELLULITIS Discharge Diagnosis: left lower extremity cellulitis Activity: Resume your previous activity Non-emergency contact: Primary Care Provider and Specialist Call non-emergency contact if: your symptoms worsen Follow-up/Referrals: Felicity Colon MD [Primary Care Provider] - 10/22/23 11:20 am Lalitha Moss CRNP [Nurse Practitioner] - 10/19/23 11:10 am Diet: Carb Consistent or DM2 Addtl Attending Provider Instructions: keep leg elevated when not walking or standing make a follow up appointment with [facility] and your primary care doctor Pending Studies at Discharge: No Studies:: will continue to watch your blood cultures Stand-Alone Forms: My Mc[employer], Smoking Cessation Medications and DC Order Prescriptions: New cefdinir 300 mg capsule 300 mg PO BID 10 Days Qty: 20 0RF Continued sumatriptan succinate [Imitrex] 100 mg tablet 100 mg PO .COMPLEX PRN (Reason: migraine headache) 30 Days Qty: 9 5RF Rx Instructions: take one at onset of headache, may repeat in 2 hours prn, limit 2-3 days / week PRN sildenafil (pulm.hypertension) 20 mg tablet 20 mg PO PRN Qty: 30 2RF Rx Instructions: administer half hour up to four hours before activity on an empty stomach. May start with one tab and go up to 5 as needed. Do not exceed 100mg. cholecalciferol (vitamin D3) 125 mcg (5,000 unit) capsule 125 mcg PO DAILY Qty: 90 3RF hydrochlorothiazide 25 mg tablet 25 mg PO QAM PRN (Reason: Fluid Retention) Qty: 90 1RF loperamide 2 mg capsule 2 mg PO Q8H PRN (Reason: Diarrhea) Biktarvy 50-200-25 mg tablet 1 tab PO QAM Qty: 30 2RF mirabegron 50 mg tablet extended release 24 hr 50 mg PO DAILY Qty: 90 1RF pregabalin 300 mg capsule 300 mg PO BID 30 Days Qty: 60 5RF Hold Instructions: not takes benztropine 0.5 mg tablet 0.5 mg PO BID Qty: 60 2RF Rx Instructions: from psych celecoxib 100 mg capsule 200 mg PO QAM PRN (Reason: Pain) multivitamin Tablet 1 tab PO DAILY sertraline 100 mg tablet 100 mg PO QAM methocarbamol 750 mg tablet 750 mg PO TID PRN (Reason: muscle spasms) lithium carbonate 300 mg capsule 600 mg PO AMHS cetirizine [Zyrtec] 10 mg Tablet 0 mg PO DAILY PRN (Reason: allergies) fluticasone propionate [Flonase Allergy Relief] 50 mcg/actuation [place],Suspension 1 spray INTRANASAL DAILY Rx Instructions: administer into each nostril Austedo 12 mg Tablet 12 mg PO BID diphenoxylate-atropine [Lomotil] 2.5-0.025 mg tablet 2 tab PO TID PRN (Reason: diarrhea) cyanocobalamin (vitamin B-12) 1,000 mcg tablet, sublingual 1,000 mcg PO QAM Vitron-C 65 mg iron- 125 mg tablet,delayed release (DR/EC) 1 tab PO QAM pramipexole [Mirapex] 0.125 mg tablet 0.125 mg PO DIRECTED Rx Instructions: take 1-2 hours before HS Discharge Orders: Discharge Order (Routine); Ordered 10/16/23 Ordered By: Kit Flowers/Other Patient Handouts: Cellulitis Dc Admission Data Admit Date/Time: 10/15/23 17:55 Attending Provider: Kit Irizarry Admit Provider: Igor Perez Primary Care Provider: Felicity Colon V. Other Providers: Igor Perez Other Interventions: Discharge Summary Assessment (RN) Last Done: 10/16/23 15:46 Coding Level of Care Code 33519 INP/OBS DISCH >30 MIN Diagnoses Cellulitis of leg without foot, left L03.116 Metabolic encephalopathy G93.41 HIV (human immunodeficiency virus infection) B20 HIV symptom status: unspecified Bipolar 1 disorder F31.9
[2023-10-16] MEDS ORDERED: cefTRIAXone SODIUM 2,000 MG in DEXTROSE 5 % MINI-B 50 ML IV SCH (18:00)
== END 2023-10-16 18:55 | disposition home or self-care (01) ==
LOC: ED 10:26 → 3W 10:26 → SUATTDRO 17:55 → 3W 20:32

== ENCOUNTER 2025-04-26 12:02 | Inpatient (IN) ==
--- NOTE | 2025-04-26 12:57 | Emergency Department Note ---
Impression & Plan Suicidal ideation ED Provider Note HISTORY OF PRESENT ILLNESS: Patient is a 59-year-old male presenting with suicidal ideation. Patient presents to the emergency department stating "I just do not want to live anymore." Per report, he was found at a public pool with nothing but a shirt on and was confused per bystanders. They stated that they had overheard the patient stated he wanted to . Patient states that she does not have a plan to kill himself but "I just do not want to live." He denies any particular triggers for his suicidal ideation. He states that he follows with Karon at [place] for his mental health and had seen her this past week. He states "I am just not doing well." He reports he has been admitted inpatient for psychiatric treatment, but does not remember the last time he was admitted but does report he was admitted at [facility]. Patient had reported to the nursing staff that he apparently was going to end his life last night with medications but did not tell the nurse what he took or how much. Patient denies any auditory or visual hallucinations. ROS: as above PHYSICAL EXAM: Constitutional: Patient appears in no acute distress. Patient is pacing [id number] in the room. HENT: Head: Normocephalic and atraumatic. Eyes: EOMI, PERRL Mouth/Throat: Mucous membranes moist. Neck: Trachea midline. Neck supple. Musculoskeletal: No edema, tenderness or deformity noted. Skin: Warm and dry. No rash, erythema, pallor or cyanosis Psychiatric: Appropriate mood and affect for situation. Neurological: Alert and keenly responsive. CN II-XII grossly intact, moving all extremities equally and fully. MDM: - Vitals signs stable - History obtained via patient. History as above. - Chronic conditions affecting care: bipolar 1 disorder; depression; mild cognitive impairment - Differential diagnoses include, but are not limited to: Hypothyroidism; depression; UTI; alcohol intoxication; drug intoxication - External medical records reviewed. - Laboratory workup interpreted by myself showed normal WBC; stable electrolytes; normal TSH; negative salicylate/acetaminophen/alcohol levels - UA negative for infection - COVID negative - UDS in process. - Patient - Prior to disposition, care of patient was checked out to Dr. Luis following a discussion of the patient's course. ASSESSMENT AND PLAN: Diagnosis: Suicidal ideation Past Med/Surg History Problem List (Updated 04/26/25 @ 16:19 by Tammie Horvath MD) Suicidal ideation (Acute) Idiopathic polyneuropathy Mild cognitive impairment Pacemaker Symptomatic bradycardia On HAART (highly active antiretroviral) therapy Bilateral tinnitus Extrapyramidal and movement disorder, unspecified Abnormal EKG (Acute) H/O amphetamine abuse Erectile dysfunction Abnormal ankle brachial index Tremor Lower urinary tract symptoms Diarrhea Memory loss Elevated PSA Excessive daytime sleepiness Obstructive sleep apnea Venous insufficiency of both lower extremities Fatigue FIGUEROA (dyspnea on exertion) Obesity Thoracic back pain Osteoarthritis of knees, bilateral Lower back pain Neck pain Migraine without aura, not intractable, without status migrainosus Encounter for health maintenance examination Restless leg syndrome Peripheral neuropathy Esophageal reflux (Chronic) Generalized anxiety disorder Human immunodeficiency virus (HIV) disease Dx around 2001 - 2002 Sensorineural hearing loss (SNHL) of both ears (Chronic) Spondylosis of cervical region without myelopathy or radiculopathy (Chronic) Status post gastric bypass for obesity (Chronic) Vitamin B12 deficiency (Chronic) Vitamin D deficiency disease (Chronic) Bipolar 1 disorder Medical History (Updated 04/26/25 @ 16:19 by Tammie Horvath MD) Balance problem Irritable bowel syndrome with diarrhea Arthritis Hx of gastroesophageal reflux (GERD) History of anemia Migraine Pacemaker implanted d/t irregular beat/medtronic ? pt unsure>[place] cards (medtronic device) H/O amphetamine abuse History of kidney stones Chronotropic incompetence HIV (human immunodeficiency virus infection) Stroke-like symptom rulled out 2022 Dyskinesia of mouth Sleep apnea cpap Inguinal lymphadenitis Essential tremor all over body Bipolar disorder Depression Surgical History History of esophagogastroduodenoscopy (EGD) History of colonoscopy History of tooth extraction History of incision and drainage (03/28/23) Incision and Drainage with Debridement of Left Lower Extremity(Left) - Rios Dawkins, DO S/P cholecystectomy S/P gastric surgery 2014 Family History Mother Systemic lupus erythematosus Diabetes Father Prostate cancer Melanoma Myocardial infarction Other No family history of adverse response to anesthesia Ulcerative colitis Denies family history of Ovarian cancer Crohn's disease Breast cancer Colorectal cancer Irritable bowel syndrome Social History Smoking Status: Never smoker Second Hand Exposure: Yes (as a child); Do You Dip or Chew Tobacco: No; Hx Alcohol Use: No Preferred Language: Upper Sorbian Communication Ability: Effective Visual Impairment: No Limitations Hearing Ability: Normal Instrument Specialist Required: No Beliefs That Will Affect Care: None marital status: Current Living Situation: Alone current occupational status: disabled Feels Safe at Home: No Childhood Exposure to Second-Hand Smoke: Yes Diet: regular caffeine: Yes Dental Care, Regularly: Yes Physical Activity Frequency: Daily Seatbelt Use: always Sunscreen Use: No Gender Identity: Male Assistive Devices: Glasses Allergies Allergies Allergy/AdvReac Type Severity Reaction Status Date / Time Fish Containing Products Allergy Severe d/t Verified 03/18/25 11:09 mercury allergy mercury (elemental) Allergy Severe Facial Verified 03/18/25 11:09 swelling, Nausea/Vomiting strawberry Allergy Intermediate rash Verified 03/18/25 11:09 shrimp AdvReac Severe ALL Verified 03/18/25 11:09 SEAFOOD D/T MERCURY RELATED. doxepin AdvReac Unknown CAN'T Verified 03/18/25 11:09 REMEMBER TOO LONG AGO Home Meds Home Medications Medication Instructions Recorded Confirmed cetirizine 10 mg tablet (Zyrtec) 10 mg PO DAILY PRN allergies 10/15/23 03/18/25 deutetrabenazine 12 mg tablet 12 mg PO BID 10/15/23 03/18/25 (Austedo) multivitamin 1 tab PO DAILY 10/15/23 03/18/25 lithium carbonate 300 mg capsule See Rx Instructions PO AMHS 10/22/23 03/18/25 ketoconazole 2 % topical cream 1 applic topical 1XD 06/28/24 03/18/25 sumatriptan succinate 100 mg 25 mg PO USEASDIRECTD PRN migraine 06/28/24 03/18/25 tablet (Imitrex) headache buspirone 30 mg tablet 30 mg PO BID 12/04/24 03/18/25 propranolol 10 mg tablet 10 mg PO UD PRN Anxiety 12/04/24 03/18/25 fluphenazine HCl 1 mg tablet 1 mg PO HS 02/20/25 03/18/25 mirabegron 50 mg tablet,extended 50 mg PO DAILY 02/20/25 03/18/25 release 24 hr Previous Rx's Medication Instructions Recorded bictegravir 50 mg-emtricitabine 1 tab PO QAM #30 tabs 01/12/20 200 mg-tenofovir alafenam 25 mg tablet (Biktarvy) benztropine 0.5 mg tablet 0.5 mg PO BID #60 tabs 07/25/23 duloxetine 60 mg capsule,delayed 60 mg PO BID #60 caps 05/09/24 release iron,carbonyl 65 mg-vitamin C 125 1 tab PO QAM RLS #60 tabs 08/06/24 mg tablet,delayed release (Vitron-C) cholecalciferol (vitamin D3) 125 125 mcg PO DAILY #90 caps 10/21/24 mcg (5,000 unit) capsule peg 3350-electrolytes 236 240 ml PO Q10M #4,000 mL 11/25/24 gram-22.74 gram-6.74 gram-5.86 gram solution (GaviLyte-G) celecoxib 200 mg capsule 200 mg PO QAM PRN Pain #90 caps 02/20/25 fluticasone propionate 50 1 spray intranasal DAILY #16 grams 02/20/25 mcg/actuation nasal spray,suspension (Flonase Allergy Relief) mecobalamin (vitamin B12) 1,000 1,000 mcg PO DAILY #90 tabs 02/20/25 mcg chewable tablet hydrochlorothiazide 25 mg tablet 25 mg PO QAM PRN Fluid Retention 02/25/25 #90 tabs pregabalin 300 mg capsule 300 mg PO BID #60 caps 03/04/25 pramipexole 0.125 mg tablet 0.125 mg PO TID #90 tabs 04/16/25 diphenoxylate-atropine 2.5 2 tab PO BID PRN diarrhea #120 tabs 04/22/25 mg-0.025 mg tablet (Lomotil) Results & Data (ED) Vital Signs Vital Signs - 24 hr 04/26/25 12:20 04/26/25 14:11 Temperature 36.5 C Temperature Source Oral Pulse Rate 86 Pulse Rate [Right Finger] 93 H Respiratory Rate 14 16 Respiratory Effort / Characteristics Non-Labored Spontaneous Non-Labored Spontaneous Respiratory Depth Normal Normal Respiratory Pattern Regular Regular Blood Pressure 109/73 Blood Pressure [Right Arm] 131/86 Blood Pressure Mean 85 Blood Pressure Mean [Right Arm] 101 Blood Pressure Position Lying Blood Pressure Position [Right Arm] Sitting Pulse Oximetry 96 99 Oxygen Delivery Method Room Air Room Air Sepsis Recent Fever Within 48 Hours No Sepsis New/Unexplained Change in Mental Status N/A Sepsis Action Taken by Nursing No Action Required Laboratory Data 04/26/25 12:24 04/26/25 12:24 Lab Results 04/26/25 04/26/25 Range/Units 12:24 14:46 WBC 7.60 (4.8-10.8) K/ul RBC 5.17 (4.70-6.10) M/uL Hgb 16.2 (14.0-18.0) g/dl Hct 44.8 (42.0-52.0) % MCV 86.7 (80.0-100.0) fL MCH 31.3 (25.0-34.0) pg MCHC 36.2 H (32.0-36.0) g/dL RDW Std Deviation 39.5 (36.4-46.3) fL RDW Coeff of Bere[place] 12.6 (11.5-14.5) % Plt Count 164 (130-400) K/uL MPV 10.8 (9.4-12.4) fL Immature Gran % (Auto) 0.3 % Neut % (Auto) 69.4 % Lymph % (Auto) 21.2 % [place] % (Auto) 8.4 % Eos % (Auto) 0.4 % Baso % (Auto) 0.3 % Neut # (Auto) 5.28 (1.40-6.50) K/uL Lymph # (Auto) 1.61 (1.20-3.40) K/uL [place] # (Auto) 0.64 H (0.11-0.59) K/uL Eos # (Auto) 0.03 (0.00-0.50) K/uL Baso # (Auto) 0.02 (0.00-0.20) K/uL Immature Gran # (Auto) 0.02 (0.01-0.20) K/uL Sodium 137 (136-145) mmol/L Potassium 3.5 (3.5-5.1) mmol/L Chloride 105 (98-107) mmol/L Carbon Dioxide 24 (21-32) mmol/L Anion Gap 8 (3-11) BUN 18 (6-23) mg/dl Creatinine 1.04 (0.6-1.4) mg/dl Est Cr Clr Drug Dosing 89.0 ml/min eGFR 83.75 BUN/Creatinine Ratio 17.3 (10-20) Glucose 101 H (70-99(Fasting)) mg/dl Calcium 9.4 (8.6-10.3) mg/dl Total Bilirubin 1.1 H (0.2-1.0) mg/dl AST 20 (13-39) U/L ALT 13 (7-52) U/L Alkaline Phosphatase 83 (34-104) U/L Total Protein 7.2 (6.0-8.3) gm/dl Albumin 4.3 (3.4-5.0) gm/dl Globulin 2.9 (2.5-4.0) gm/dl Albumin/Globulin Ratio 1.5 (0.9-2) TSH 1.191 (0.300-4.500) uIu/ml Urine Color Dark Yellow Urine Appearance Cloudy A (Clear) Urine pH 5.5 (4.5-7.5) Ur Specific [place] 1.025 (1.000-1.030) Urine Protein 1+ H (Negative) Urine Glucose (UA) Negative (Negative) Urine Ketones 1+ H (Negative) Urine Blood Negative (Negative) Urine Nitrite Negative (Negative) Urine Bilirubin 2+ H (Negative) Urine Urobilinogen Negative (Negative) Ur Leukocyte Esterase Trace H (Negative) Urine WBC (Auto) 0-5 (0-5) /hpf Urine RBC (Auto) 0-2 (0-2) /hpf U Hyaline Cast (Auto) 11-20 H (0-2) /lpf U Epithel Cells (Auto) 3-5 H (0-2) /hpf Urine Bacteria (Auto) None Seen (None Seen) Hyaline Casts Present A (None Presnt) /lpf Urine Mucus Present A (None Prsent) Urine Comment Salicylates < 3.0 L (3.0-30) mg/dl Acetaminophen < 3 L (10-30) ug/ml Ethyl Alcohol mg/dL < 10.0 (<10.0) mg/dl SARS-CoV-2, RNA, NAAT NEGATIVE (NEGATIVE) Discharge Plan Visit Data Chief Complaint: Mental Health Evaluation Stated Complaint: E ED Provider: Tammie Horvath Discharge Problem: Suicidal ideation Patient Disposition: Still a Patient Condition: Fair Forms Stand Alone Forms: My [facility] [address], Suicide Prevention Resources Prescriptions Prescriptions: No Action Vitron-C 65 mg iron- 125 mg tablet,delayed release (DR/EC) 1 tab PO QAM Qty: 60 6RF cholecalciferol (vitamin D3) 125 mcg (5,000 unit) capsule 125 mcg PO DAILY Qty: 90 3RF peg 3350-electrolytes [GaviLyte-G] 236-22.74-6.74 -5.86 gram recon soln 240 ml PO Q10M Qty: 4000 0RF Rx Instructions: until fecal effluent is clear hydrochlorothiazide 25 mg tablet 25 mg PO QAM PRN (Reason: Fluid Retention) Qty: 90 1RF pregabalin 300 mg capsule 300 mg PO BID Qty: 60 5RF pramipexole 0.125 mg tablet 0.125 mg PO TID Qty: 90 6RF Rx Instructions: take 1 tablet in AM; 1 tablet at noon; 1 tablet at bedtime. diphenoxylate-atropine [Lomotil] 2.5-0.025 mg tablet 2 tab PO BID PRN (Reason: diarrhea) Qty: 120 0RF Biktarvy 50-200-25 mg tablet 1 tab PO QAM Qty: 30 2RF benztropine 0.5 mg tablet 0.5 mg PO BID Qty: 60 2RF Rx Instructions: from psych duloxetine 60 mg capsule,delayed release(DR/EC) 60 mg PO BID Qty: 60 2RF lithium carbonate 300 mg capsule See Rx Instructions PO AMHS Rx Instructions: 450 orally in the morining and at bedtime; mirabegron 50 mg tablet extended release 24 hr 50 mg PO DAILY fluphenazine HCl 1 mg tablet 1 mg PO HS celecoxib 200 mg capsule 200 mg PO QAM PRN (Reason: Pain) Qty: 90 3RF Rx Instructions: - RIZWANA fluticasone propionate [Flonase Allergy Relief] 50 mcg/actuation spray,suspension 1 spray INTRANASAL DAILY Qty: 16 1RF Rx Instructions: administer into each nostril mecobalamin (vitamin B12) 1,000 mcg tablet,chewable 1,000 mcg PO DAILY Qty: 90 3RF multivitamin Tablet 1 tab PO DAILY cetirizine [Zyrtec] 10 mg Tablet 10 mg PO DAILY PRN (Reason: allergies) [place] 12 mg Tablet 12 mg PO BID ketoconazole 2 % cream 1 applic TOPICAL 1XD sumatriptan succinate [Imitrex] 100 mg tablet 25 mg PO USEASDIRECTD PRN (Reason: migraine headache) Rx Instructions: take one at onset of headache, may repeat in 2 hours prn, limit 2-3 days / week PRN propranolol 10 mg Tablet 10 mg PO UD PRN (Reason: Anxiety) buspirone 30 mg Tablet 30 mg PO BID Referrals Referrals: Felicity Colon MD [Primary Care Provider] -
[2025-04-26 13:11] LABS: Hematocrit (blood only) 44.8 % (42.0-52.0); Hemoglobin 16.2 g/dl (14.0-18.0); Immature Granulocytes # (auto) 0.02 K/uL (0.01-0.20); Immature Granulocytes % (auto) 0.3 %; Mean Corpuscular Hemoglobin 31.3 pg (25.0-34.0); Mean Corpuscular Volume 86.7 fL (80.0-100.0); Platelet Count 164 K/uL (130-400); RDW Standard Deviation 39.5 fL (36.4-46.3); Red Blood Count 5.17 M/uL (4.70-6.10); White Blood Count 7.60 K/ul (4.8-10.8)
[2025-04-26 13:24] LABS: Acetaminophen < 3 ug/ml (10-30); Salicylate < 3.0 mg/dl (3.0-30)
[2025-04-26 13:28] LABS: Alanine Aminotransferase 13.0 U/L (7-52); Albumin Globulin Ratio 1.5 (0.9-2); Alkaline Phosphatase 83.0 U/L (34-104); Anion Gap 8.0 (3-11); Bilirubin,Total 1.1 mg/dl (0.2-1.0); Blood Urea Nitrogen 18.0 mg/dl (6-23); Calcium 9.4 mg/dl (8.6-10.3); Carbon Dioxide 24.0 mmol/L (21-32); Chloride 105.0 mmol/L (98-107); Creatinine Clr Calc Pharmacy 89.0 ml/min; Globulin 2.9 gm/dl (2.5-4.0); Glucose 101.0 mg/dl (70-99(Fasting)); Potassium 3.5 mmol/L (3.5-5.1); Sodium 137.0 mmol/L (136-145); Total Protein 7.2 gm/dl (6.0-8.3)
[2025-04-26 13:42] LABS: Thyroid Stimulating Hormone 1.191 uIu/ml (0.300-4.500)
[2025-04-26 15:44] LABS: Appearance Urine Cloudy (Clear); Bacteria Urine Automated None Seen (None Seen); Glucose Urine UA Negative (Negative); RBC Urine Automated 0-2 /hpf (0-2); WBC Urine Automated 0-5 /hpf (0-5)
[2025-04-26 16:38] LABS: Amphetamines+Metham, Urine Pos (Neg); MDMA (Ecstacy), Urine Neg (Neg); Marijuana, Urine Neg (Neg)
--- NOTE | 2025-04-26 16:38 | Emergency Department Note ---
ED Visit Note Patient is a 59-year-old male who presents ER for passive suicidal thoughts. No clear plan at this time. He is intellectually delayed. Has been medically cleared and signed out to me by Dr. Horvath. Currently awaiting 3 S. eval on a 201. Per Dr. Coreas evaluated patient initially there is no grounds for a 302 at this time. Patient was excepted to 3 S. on a 201. .
[2025-04-26] MEDS: LORazepam 0.5 MG TAB PO STA (16:41)
[2025-04-26] MEDS ORDERED: MAGNESIUM HYDROXIDE SUSP 30 ML UDC PO PRN (18:09)
[2025-04-26] MEDS ORDERED: BISMUTH SUBSALICYLATE 262 MG CHEW PO PRN (18:09)
[2025-04-26] MEDS ORDERED: SODIUM CHLORIDE 0.65% NA SOLN 45 ML (OCEAN) PRN (18:09)
[2025-04-26] MEDS ORDERED: ALUMINUM/MAGNESIUM SUSP 30 ML UDC PO PRN (18:09)
[2025-04-26] MEDS ORDERED: BENZTROPINE MESYLATE 1 MG TAB PO PRN (19:54)
[2025-04-26] MEDS ORDERED: CETIRIZINE HCL 10 MG TABLET PO PRN (19:54)
[2025-04-26] MEDS ORDERED: CeleBREX 200 MG CAP PO PRN (19:54)
[2025-04-26] MEDS ORDERED: DIPHENOXYLATE/ATROPINE 2.5/0.025MG TAB PO PRN (19:54)
[2025-04-26] MEDS: LITHIUM CARBONATE 300 MG TAB PO SCH (20:51)
[2025-04-26] MEDS: METHOCARBAMOL 750 MG TABLET PO SCH (20:51)
[2025-04-26] MEDS: busPIRone 15 MG TAB PO SCH (20:51)
[2025-04-26] MEDS: PREGABALIN 150 MG CAP PO SCH (20:54)
[2025-04-27 08:08] LABS: Cholesterol 128.0 mg/dl (0-200); HDL Cholesterol 43.0 mg/dl; Triglycerides 108.0 mg/dl (0-150)
[2025-04-27] MEDS ORDERED: ASCORBIC ACID 500 MG TAB PO SCH (09:00)
[2025-04-27 09:04] LABS: Hemoglobin A1C 4.5 % (4.5-5.6)
--- NOTE | 2025-04-27 09:06 | History & Physical ---
Date of Service April 27, 2025 Impression / Recommendations Impression STIVEN GRIGGS is a 59-year-old man who currently lives in [place] alone, has a history of bipolar affective disorder, JERICHO, methamphetamine use disorder, and was admitted on 04/26/25 17:43 on a 201 voluntary commitment for bizarre behavior and SI. Diagnostically consistent with bipolar affective disorder current depressive episode versus mixed episode given bizarre behavior and confusion resulting in disrobing at his apartment pool. History and presentation also consistent with tardive dyskinesia secondary to prior antipsychotic exposure. Seems his depression and suicidal ideation and odd behaviors occurred in the setting of subtherapeutic lithium levels, recent psychosocial stressors including social isolation due to broken phone and positive urine drug screen for methamphetamine/amphetamines that conflicts with his self-report of no recent use. Discussed current medication regimen reviewing risks benefits and alternatives. He agrees to continue lithium and desires this above any other mood stabilizer options. Reviewed that neurology has had some concerns about continued use of lithium he prefers to take these risks because the lithium has worked well and been the only mood stabilizer that has ever seemed to offer him much benefit. He also wants to continue on Cymbalta as he feels this does help his depression and restless legs despite not being fully effective. He consents to d iscontinuing Wellbutrin given concerns about recent bizarre behaviors and due to interaction concerns of excessive NE activity. We will continue deutetrabenazine for tardive dyskinesia and discontinue benztropine given animal studies showing risk that this can worsen tardive dyskinesia symptoms. Additionally anticholinergic effects could have contributed to possible recent confusion. At this time we will hold off on adding or using any antipsychotic medications. Ongoing monitoring of lithium level and clarification of recent outpatient medication changes was reviewed. Explore additional mood stabilizer options. Fasting lipid panel and hemoglobin A1c reviewed and stable. Vitamin D and vitamin B12 labels reviewed and stable. Initial syphilis result positive, confirmatory testing pending. The patient's, use history and negative consequences suggests substance use disorder. Motivational interviewing was done as a brief intervention. Intervention was greater than 5 minutes in length and included assessing readiness to quit, advice on how to reduce or abstain and to set a specific goal for this hospitalization. kennel worker will also assist in anticipating barriers to reducing or abstaining from substance use and in problem-solving for solutions to those problems while arranging for referral to appropriate treatment. The patient is in precontemplative stage with regards to transtheoretical model of change. Recommended decreasing consumption due to disinhibiting effects and potential for worsening psychiatric symptoms. MNPR given recent disrobing and bizarre behavior Overall I spent a total of 75 minutes for this admission including review of chart records, review of labwork, direct evaluation of the patient, counseling the patient, ordering medication, risk assessment, discussion with the psychiatric liason RN and documentation in the electronic health record. (1) Suicidal ideation: (2) Bipolar affective disorder, current episode mixed: (3) Generalized anxiety disorder: (4) Bipolar 1 disorder: (5) Mild cognitive impairment: (6) Extrapyramidal and movement disorder, unspecified: (7) On HAART (highly active antiretroviral) therapy: Plan 04/27/2025: The patient was admitted to the [facility] ([facility]) on q15 min checks (behavioral with suicide precautions) for safety. The patient will participate in group, recreational, and milieu therapies and will be offered additional individual and family sessions as clinically appropriate. -Discontinue fluphenazine -Discontinue Wellbutrin -Discontinue pramipexole -Continue [place] 300mg HS (consider further titration) -Continue Buspar 30mg BID -Continue duloxetine 60mg BID (reviewed and he understands this is a high dose which not confirm additional benefits but he feels it does help with depression and RLS) -Change ativan 0.5mg daily to daily prn (caution given history of amphetamine/methamphetamine use disorder but also with significant hx of akathisia so will continue for now if needed) -Change benztropine 1mg BID to prn given potential to worsen tardive dyskinesia over time and anticholinergic effects can worsen confusion and sedation Inventory Assets Strengths: supportive relationships, willing to get treatment Needs: safety and stabilization, medication adjustment, additional coping skills, increased outpatient services Suicide Risk Level Suicide Risk Level: High-Moderate (q15 min suicide checks) (recent SI, reckless behaviors and depression but denies current SI and feels safe in the hospital and feels able to ask for support) Risk Factors Assessment Male: Yes : Yes Do You Have Access To A Gun?: No Health Problems: Yes Mental Health Diagnoses: Yes Substance Use Disorders: Yes Previous Attempt: Yes Family History of Suicide: No Previous Psychiatric Hospitalization: Yes Hopelessness: No Protective Factors Assessment Employed: Yes ([employer]) Stable Relationships: Yes Good Rapport with Provider: Yes Psychiatric History Identifying Data STIVEN GRIGGS is a 59-year-old man who currently lives in [place] alone, has a history of bipolar affective disorder, JERICHO, methamphetamine use disorder, and was admitted on 04/26/25 17:43 on a 201 voluntary commitment for bizarre behavior and SI. Chief Complaint "I just didn't care, I was out of control". History of Present Illness Daniel presents for psychiatric admission following an episode where he was found partially undressed at his apartment complex pool making statements about suicide. He reports recent episodes of confusion including entering the wrong apartment and startling someone which led to police involvement a few weeks ago. States he has been experiencing more of these "weird little things" including confusion about his surroundings. And he also states he smashed items in his apartment earlier this week due to "I was out of control I just did not care anymore" noting that he did not want to live anymore. However he denies any recent attempts at suicide which conflicts with what he told providers in the ED regarding an attempt the day prior to admission. And he mentioned several recent stressors including learning he needs 25 teeth extracted uncertainty about his housing situation due to a required income reassessment and losing his phone earlier in the week which left him unable to communicate with others. He feels these factors contributed to his recent distress, suicidal ideation and destruction of property in his apartment. He becomes tearful on hearing that his and [id number] have offered to clean up his apartment noting that this makes him feel a lot better about returning there. He also expresses regret about scaring his dogs because they are his main reason for living. And he describes ongoing depression stating he cannot remember when he was not depressed. He expresses disappointment in himself for his recent suicidal thoughts and ending up in the hospital because he missed a therapy appointment today and the start of a new job today. He denies thoughts of suicide today but continues to state that he feels disappointed in himself. Regarding medication and he reports taking his lithium and Cymbalta regularly. He confirms this even when we discussed his lithium level is fairly low. He feels the Cymbalta is very helpful with depression and restless legs and likes this he states the Wellbutrin was started within the last month and he is not interested in continuing this. He expresses frustration with recent frequent medication changes over the last few months stating he has "lost kelly" and his outpatient provider due to monthly alterations left him unsure of what he was taking and without time given to determine if they were offering any benefit. He also takes deutetrabenazine for tardive dyskinesia and benztropine for tardive dyskinesia and ropinirole for restless legs. He does not think he has been taking an antipsychotic medication recently even when we discuss fluphenazine. He denies any recent methamphetamine use stating his last use was "weeks" ago. States he likely would have used more recently but "I did not have any". Reviewed that his urine drug screen was positive on initial screen for amphetamine/methamphetamine. He denies any other recent substance use. Psychiatric ROS notable for history of noemi. No current nor history of symptoms of psychosis, PTSD, OCD nor eating disorder. Past Psychiatric History Current Psychiatric Diagnosis: depression, anxiety, Bipolar 1 Outpatient Services: [facility] Previous Psych Admissions: multiple ~10, last a few months ago at [facility] Do You Have Access To A Gun?: No History of Previous Suicide Attempt: Yes Describe Attempts in the Past: 3x-last about 8 years ago Past Medication Trials: multiple Depkaote-side effects and not effective Lamictal-not very helpful Abilify-caused TD/akathisia Latuda-no benefit doxepin-allergic reaction Allergies Allergy/AdvReac Type Severity Reaction Status Date / Time Fish Containing Products Allergy Severe d/t Verified 03/18/25 11:09 mercury allergy mercury (elemental) Allergy Severe Facial Verified 03/18/25 11:09 swelling, Nausea/Vomiting strawberry Allergy Intermediate rash Verified 03/18/25 11:09 shrimp AdvReac Severe ALL Verified 03/18/25 11:09 SEAFOOD D/T MERCURY RELATED. doxepin AdvReac Unknown CAN'T Verified 03/18/25 11:09 REMEMBER TOO LONG AGO Home Medications Medication Instructions Recorded Confirmed Type cetirizine 10 mg tablet (Zyrtec) 10 mg PO DAILY PRN allergies 10/15/23 04/26/25 History deutetrabenazine 12 mg tablet 12 mg PO BID 10/15/23 04/26/25 History (Austedo) multivitamin 1 tab PO DAILY 10/15/23 04/27/25 History duloxetine 60 mg capsule,delayed 60 mg PO BID #60 caps 05/09/24 04/26/25 Rx release celecoxib 200 mg capsule 200 mg PO QAM PRN Pain #90 caps 02/20/25 04/26/25 Rx fluticasone propionate 50 1 spray intranasal DAILY #16 grams 02/20/25 04/26/25 Rx mcg/actuation nasal spray,suspension (Flonase Allergy Relief) pregabalin 300 mg capsule 300 mg PO BID #60 caps 03/04/25 04/26/25 Rx diphenoxylate-atropine 2.5 2 tab PO BID PRN diarrhea #120 tabs 04/22/25 04/26/25 Rx mg-0.025 mg tablet (Lomotil) benztropine 0.5 mg tablet 1 mg PO BID 04/26/25 04/26/25 History bictegravir 50 mg-emtricitabine See Rx Instructions .Route .COMPLEX 04/26/25 04/26/25 History 200 mg-tenofovir alafenam 25 mg tablet (Biktarvy) bupropion HCl 150 mg 24 hr tablet, 150 mg PO DAILY 04/26/25 04/26/25 History extended release (Wellbutrin XL) buspirone 30 mg tablet 30 mg PO BID 04/26/25 04/26/25 History hydrochlorothiazide 25 mg tablet 25 mg PO DAILY 04/26/25 04/26/25 History lorazepam 0.5 mg tablet (Ativan) 0.5 mg DAILY 04/26/25 04/26/25 History methocarbamol 750 mg tablet 750 mg PO TID 04/26/25 04/26/25 History mirabegron 50 mg tablet,extended 50 mg PO DAILY 04/26/25 04/26/25 History release 24 hr (Myrbetriq) semaglutide (weight loss) 0.25 0.25 mg subcut MONTHLY 04/26/25 04/26/25 History mg/0.5 mL subcutaneous pen injector (Wegovy) fluphenazine HCl 5 mg tablet 5 mg PO DAILY 04/27/25 04/27/25 History lithium carbonate 150 mg capsule 300 mg PO HS 04/27/25 04/27/25 History pramipexole 0.125 mg tablet 0.125 mg PO TID 04/27/25 04/27/25 History Family History Family History of: Other-List under Comment Family Mental Health History Comment: patient is a poor historian Alcohol History Hx of Alcohol Use Over the Past 12 Months: No Smoking Use Have You Smoked or Used Tobacco Products in the Last 30 Days: No Smoking Status: Unknown if ever smoked Substance History Hx of Prescription Med Misuse Over the Past 12 Months: No Hx of Over the Counter Med Misuse Over the Past 12 Months: No Hx of Inhalent Misuse Over the Past 12 Months: No Hx of Organic Substance Use Over the Past 12 Months: No Hx of Illegal Substances/Street Drug Use Over Past 12 Months: Yes (extensive Meth use - frequency unknown, UDS +) Problems as a Result of Past Substance Use: Relationships Ended, Life out of Control, Estranged from Family and Loss of Family Support Problems as a Result of Past Substance Use Comments: Loss of relationships/jobs Personal History Living Arrangements: Apartment Highest Grade Completed: Some College Employment Status: Unemployed Marital Status: Beliefs That Will Affect Care: None Current Legal Problems: No Patient History Medical History Balance problem Irritable bowel syndrome with diarrhea Arthritis Hx of gastroesophageal reflux (GERD) History of anemia Migraine Pacemaker implanted d/t irregular beat/medtronic ? pt unsure>[place] cards (medtronic device) H/O amphetamine abuse History of kidney stones Chronotropic incompetence HIV (human immunodeficiency virus infection) Stroke-like symptom rulled out 2022 Dyskinesia of mouth Sleep apnea cpap Inguinal lymphadenitis Essential tremor all over body Bipolar disorder Depression Surgical History History of esophagogastroduodenoscopy (EGD) History of colonoscopy History of tooth extraction History of incision and drainage (03/28/23) Incision and Drainage with Debridement of Left Lower Extremity(Left) - Rios Dawkins, DO S/P cholecystectomy S/P gastric surgery 2014 Family History Mother Systemic lupus erythematosus Diabetes Father Prostate cancer Melanoma Myocardial infarction Other No family history of adverse response to anesthesia Ulcerative colitis Denies family history of Ovarian cancer Crohn's disease Breast cancer Colorectal cancer Irritable bowel syndrome Social History Smoking Status: Unknown if ever smoked Second Hand Exposure: Yes (as a child); Do You Dip or Chew Tobacco: No; Hx Alcohol Use: No Preferred Language: Urugu[place] Communication Ability: Effective Visual Impairment: No Limitations Hearing Ability: Normal Superannuation Clerk Required: No Beliefs That Will Affect Care: None marital status: Current Living Situation: Alone current occupational status: disabled Feels Safe at Home: Yes Childhood Exposure to Second-Hand Smoke: Yes Diet: regular caffeine: Yes Dental Care, Regularly: Yes Physical Activity Frequency: Daily Seatbelt Use: always Sunscreen Use: No Gender Identity: Male Assistive Devices: Glasses Review of Systems Review of Systems: All systems reviewed & are unremarkable except as noted in HPI & below Physical Exam Psychiatric: Orientation: alert and oriented x 3 Apperance: appropriately dressed and + disheveled Eye Contact: good eye contact Motor Behavior: no abnormal motor movements Speech: normal rate/rhythm/volume of speech Affect: + depressed affect and + tearful affect Mood: + depressed mood Thought Process: goal directed thought process Thought Content: reality based without delusions, + loneliness and + guilt Suicidal Thoughts: denies suicidal plan and denies suicidal intent; + reports suicidal thoughts (intermittent, denies currently) Homicidal Thoughts: denies homicidal thoughts Hallucinations: no auditory hallucinations and no visual hallucinations Cognition: remote memory grossly intact, attention grossly intact and language grossly intact; + recent memory not intact Estimated Intelligence: consistent with education level Insight: + limited insight Judgment: + limited judgement Vital Signs (Past 24 Hours): Last Vital Signs Temp 36.4 C 04/27/25 06:29 Pulse 66 04/27/25 06:30 Resp 17 04/27/25 06:29 BP 116/73 04/27/25 06:30 Pulse Ox 97 04/27/25 06:29 O2 Del Method Room Air 04/27/25 06:29 Exam Statement: A physical exam was performed in the ED by Dr. Horvath for the purposes of medical clearance. I accept that physical as correct and adequate for the purposes of the inpatient physical exam. Results & Data ([facility]) Laboratory Results Laboratory Results - last 24 hr 04/26/25 04/26/25 04/27/25 12:24 14:46 07:28 WBC 7.60 RBC 5.17 Hgb 16.2 Hct 44.8 MCV 86.7 MCH 31.3 MCHC 36.2 H RDW Std Deviation 39.5 RDW Coeff of Bere[place] 12.6 Plt Count 164 MPV 10.8 Immature Gran % (Auto) 0.3 Neut % (Auto) 69.4 Lymph % (Auto) 21.2 [place] % (Auto) 8.4 Eos % (Auto) 0.4 Baso % (Auto) 0.3 Neut # (Auto) 5.28 Lymph # (Auto) 1.61 [place] # (Auto) 0.64 H Eos # (Auto) 0.03 Baso # (Auto) 0.02 Immature Gran # (Auto) 0.02 Sodium 137 Potassium 3.5 Chloride 105 Carbon Dioxide 24 Anion Gap 8 BUN 18 Creatinine 1.04 Est Cr Clr Drug Dosing 89.0 eGFR 83.75 BUN/Creatinine Ratio 17.3 Glucose 101 H Estimat Average Glucose Pending Hemoglobin A1c Pending Calcium 9.4 Total Bilirubin 1.1 H AST 20 ALT 13 Alkaline Phosphatase 83 Total Protein 7.2 Albumin 4.3 Globulin 2.9 Albumin/Globulin Ratio 1.5 Triglycerides 108 Cholesterol 128 LDL Cholesterol, Calc 63 VLDL Cholesterol, Calc 22 HDL Cholesterol 43 Cholesterol/HDL Ratio 3.0 Vitamin B12 817 25-OH Vitamin D Total 45.6 TSH 1.191 Urine Color Dark Yellow Urine Appearance Cloudy A Urine pH 5.5 Ur Specific [place] 1.025 Urine Protein 1+ H Urine Glucose (UA) Negative Urine Ketones 1+ H Urine Blood Negative Urine Nitrite Negative Urine Bilirubin 2+ H Urine Urobilinogen Negative Ur Leukocyte Esterase Trace H Urine WBC (Auto) 0-5 Urine RBC (Auto) 0-2 U Hyaline Cast (Auto) 11-20 H U Epithel Cells (Auto) 3-5 H Urine Bacteria (Auto) None Seen Hyaline Casts Present A Urine Mucus Present A Urine Comment Salicylates < 3.0 L Urine Opiates Screen Neg Ur Methadone, Qual Neg Urine Fentanyl Screen Neg Acetaminophen < 3 L Urine Barbiturates Neg Ur Phencyclidine (PCP) Neg U Amphetamines Confirm Pending U Amphetamin/Meth Scrn Pos H U Methamphetamin Confrm Pending MDMA (Ecstasy) Screen Neg U Benzodiazepines Scrn Neg Herron Pending Ur Cocaine Metabolite Neg U Marijuana (THC) Screen Neg Drug Screen Comment Pending Ethyl Alcohol mg/dL < 10.0 Treponema pallidum Ab Pending SARS-CoV-2, RNA, NAAT NEGATIVE Current Inpatient Medications Current Inpatient Medications: Current Inpatient Medications Acetaminophen (Acetaminophen 325 Mg Tab) 650 mg PO Q4H PRN PRN Reason: Headache or Minor Fever Stop: 05/26/25 18:08 Al Hydrox/Mg Hydrox/Simethicone (Aluminum/Magnesium Susp 30 Ml Udc) 30 ml PO Q4H PRN PRN Reason: GI Upset Stop: 05/26/25 18:08 Ascorbic Acid (Ascorbic Acid 500 Mg Tab) 250 mg PO QAM MARJAN Stop: 05/27/25 08:59 Benztropine Mesylate (Benztropine Mesylate 1 Mg Tab) 1 mg PO BID PRN PRN Reason: muscle stiffness Stop: 05/26/25 20:59 Bismuth Subsalicylate (Bismuth Subsalicylate 262 Mg Chew) 2 tab PO Q30M PRN PRN Reason: Loose Stool/Diarrhea Stop: 05/26/25 18:08 Buspirone HCl (Buspirone 15 Mg Tab) 30 mg PO BID MARJAN Stop: 05/26/25 20:59 Last Admin: 04/26/25 20:51 Dose: 30 mg Celecoxib (Celebrex 200 Mg Cap) 200 mg PO QAM PRN PRN Reason: Pain Stop: 05/26/25 19:53 Cetirizine HCl (Cetirizine Hcl 10 Mg Tablet) 10 mg PO DAILY PRN PRN Reason: allergies Stop: 05/26/25 19:53 Diphenoxylate HCl/Atropine (Diphenoxylate/Atropine 2.5/0.025mg Tab) 2 tab PO BID PRN PRN Reason: diarrhea Stop: 05/26/25 19:53 Duloxetine HCl (Duloxetine Hcl 60 Mg Cap) 60 mg PO DAILY MARJAN Stop: 05/27/25 08:59 Ferrous Sulfate (Ferrous Sulfate 325 Mg Tab) 325 mg PO QAM MARJAN Stop: 05/27/25 08:59 Fluphenazine HCl (Fluphenazine Hcl 1 Mg Tab) 1 mg PO HS MARJAN Stop: 05/26/25 21:59 Last Admin: 04/26/25 21:20 Dose: 1 mg Fluticasone Propionate (Fluticasone Propionate Na Spr 16 Gm Btl) 1 sprays NA DAILY MARJAN Stop: 05/27/25 08:59 Hydrochlorothiazide (Hydrochlorothiazide 25 Mg Tab) 25 mg PO DAILY MARJAN Stop: 05/27/25 08:59 Hydroxyzine HCl (Hydroxyzine Hcl 25 Mg Tab) 50 mg PO HSZ PRN PRN Reason: Insomnia Stop: 05/26/25 18:08 Hydroxyzine HCl (Hydroxyzine Hcl 25 Mg Tab) 25 mg PO Q4H PRN PRN Reason: Anxiety Stop: 05/26/25 18:08 Herron Carbonate (Herron Carbonate 300 Mg Tab) 450 mg PO BID MARJAN Stop: 05/26/25 20:59 Last Admin: 04/26/25 20:51 Dose: 450 mg Magnesium Hydroxide (Magnesium Hydroxide Susp 30 Ml Udc) 30 ml PO DAILY PRN PRN Reason: Constipation Stop: 05/26/25 18:08 Methocarbamol (Methocarbamol 750 Mg Tablet) 750 mg PO TID MARJAN Stop: 05/26/25 20:59 Last Admin: 04/26/25 20:51 Dose: 750 mg Miscellaneous (Order Awaiting Action--Biktarvy) 1 each N/A QS MARJAN Stop: 05/27/25 00:00 Last Admin: 04/27/25 01:56 Dose: Not Given Miscellaneous (Order Awaiting Action--Austedo 12mg) 1 each N/A QS MARJAN Stop: 05/27/25 00:00 Last Admin: 04/27/25 01:56 Dose: Not Given Multivitamins (Multivitamin Tab) 1 tab PO QAM AMRJAN Stop: 05/27/25 08:59 Pregabalin (Pregabalin 150 Mg Cap) 300 mg PO BID MARJAN Stop: 05/26/25 20:59 Last Admin: 04/26/25 20:54 Dose: 300 mg Sodium Chloride (Sodium Chloride 0.65% Na Soln 45 Ml ([place])) 1 - 2 sprays NA PRN PRN PRN Reason: Nasal Dryness/Congestion Stop: 05/26/25 18:08 Vibegron (Vibegron 75 Mg Tab) 75 mg PO DAILY MARJAN Stop: 05/27/25 08:59 Vitamin D (Cholecalciferol 125 Mcg (5,000 Units) Tab) 125 mcg PO QAM MARJAN Stop: 05/27/25 08:59
[2025-04-27] MEDS: ASCORBIC ACID 500 MG TAB PO SCH (09:23)
[2025-04-27] MEDS: FERROUS SULFATE 325 MG TAB PO SCH (09:27)
[2025-04-27] MEDS: CHOLECALCIFEROL 125 MCG (5,000 UNITS) TAB PO SCH (09:27)
[2025-04-27] MEDS: FLUTICASONE PROPIONATE NA SPR 16 GM BTL SCH (09:28)
[2025-04-27] MEDS: hydroCHLOROthiazide 25 MG TAB PO SCH (09:28)
[2025-04-27] MEDS: MULTIVITAMIN TAB PO SCH (09:29)
[2025-04-27] MEDS: VIBEGRON 75 MG TAB PO SCH (09:30)
[2025-04-27] MEDS: PNEUMOCOCCAL VACCINE (PCV20) 20-VAL CONJ-DIP CRM/PF 0.5 ML SYR IM ONE (12:33)
[2025-04-27] MEDS ORDERED: LORazepam 0.5 MG TAB PO PRN (15:08)
[2025-04-27] MEDS: LITHIUM CARBONATE 300 MG TAB PO SCH (21:07)
--- NOTE | 2025-04-28 08:55 | Psychiatric Progress Note ---
Date of Service April 28, 2025 Impression / Recommendations Impression STIVEN GRIGGS is a 59-year-old man who currently lives in [place] alone, has a history of bipolar affective disorder, JERICHO, methamphetamine use disorder, and was admitted on 04/26/25 17:43 on a 201 voluntary commitment for bizarre behavior and SI. Diagnostically consistent with bipolar affective disorder current depressive episode versus mixed episode given bizarre behavior and confusion resulting in disrobing at his apartment pool. History and presentation also consistent with tardive dyskinesia secondary to prior antipsychotic exposure. Seems his depression and suicidal ideation and odd behaviors occurred in the setting of subtherapeutic lithium levels, recent psychosocial stressors including social isolation due to broken phone and positive urine drug screen for methamphetamine/amphetamines that conflicts with his self-report of no recent use. A: Ongoing depression. Some concern for possible neurosyphilis contributing to recent confusion and mood changes given positive antibody test with history of negative RPR which can be seen with more latent infections which progress to neurosyphilis. Discussed with precision instrument maker and repairer neurologist who recommends involving infectious disease for indication for and any recommendation for AUTO CLUTCH SPECIALIST syphilis workup. MNPR given recent disrobing and positive syphilis antibody test Overall, I spent a total of 50 minutes on this case including meeting with the patient, reviewing the chart, nursing report, multidisciplinary team meeting, orders, and documentation. (1) Suicidal ideation: (2) Bipolar affective disorder, current episode mixed: (3) Generalized anxiety disorder: (4) Bipolar 1 disorder: (5) Mild cognitive impairment: (6) Extrapyramidal and movement disorder, unspecified: (7) On HAART (highly active antiretroviral) therapy: Plan 04/28/2025: -Consider further lithium titration but will follow syphilis workup first -Consult infectious disease for recommendations regarding need for AUTO CLUTCH SPECIALIST w orkup/any further testing 04/27/2025: The patient was admitted to the [facility] ([facility] inpatient mental health unit) on q15 min checks (behavioral with suicide precautions) for safety. The patient dakotah l participate in group, recreational, and milieu therapies and will be offered additional individual and family sessions as clinically appropriate. -Discontinue fluphenazine -Discontinue Wellbutrin -Discontinue pramipexole -Continue Marlton 300mg HS (consider further titration) -Continue Buspar 30mg BID -Continue duloxetine 60mg BID (reviewed and he understands this is a high dose which not confirm additional benefits but he feels it does help with depression and RLS) -Change ativan 0.5mg daily to daily prn (caution given history of amphetamine/methamphetamine use disorder but also with significant hx of akathisia so will continue for now if needed) -Change benztropine 1mg BID to prn given potential to worsen tardive dyskinesia over time and anticholinergic effects can worsen confusion and sedation Inventory Assets Strengths: supportive relationships, willing to get treatment Needs: safety and stabilization, medication adjustment, additional coping skills, increased outpatient services Suicide Risk Level Suicide Risk Level: High-Moderate (q15 min suicide checks) (recent SI, reckless behaviors and depression but denies current SI and feels safe in the hospital and feels able to ask for support) Risk Factors Assessment Male: Yes : Yes Do You Have Access To A Gun?: No Health Problems: Yes Mental Health Diagnoses: Yes Substance Use Disorders: Yes Previous Attempt: Yes Family History of Suicide: No Previous Psychiatric Hospitalization: Yes Hopelessness: No Protective Factors Assessment Employed: Yes ([employer]) Stable Relationships: Yes Good Rapport with Provider: Yes Interval History Identifying Information STIVEN GRIGGS is a 59-year-old man who currently lives in [place] alone, has a history of bipolar affective disorder, JERICHO, methamphetamine use disorder, and was admitted on 04/26/25 17:43 on a 201 voluntary commitment for bizarre behavior and SI. Chief Complaint "I have a headache". Review of Systems Sleep Information Total Hours of Sleep: 8.75 Meal Information Percent Meal Consumed - Breakfast: 100 Percent Meal Consumed - Lunch: 100 Percent Meal Consumed - Dinner: 90 Subjective Subjective Patient was seen & assessed and interval progress reviewed with nursing and social work. Attending groups, social with peers. Rated mood as "3" and depressed. Today reports his mood remains low due to recent events and ongoing headache. Reviewed labwork again and he confirms never having a known syphilis infection and has never been treated for this. Reviewed history of past screening via RPR but never via treponemal antibody. He would like a workup given possibility this could be contributing to recent confusion and consents to infectious disease vs neurology consult. He denies SI today but still feels upset about recently feeling this way noting "it's just such a diaster". Collateral noted house covered in feces and broken glass. Physical Exam Psychiatric Orientation: alert and oriented x 3 Apperance: appropriately dressed and + disheveled Eye Contact: good eye contact Motor Behavior: no abnormal motor movements Speech: normal rate/rhythm/volume of speech Affect: + depressed affect Mood: + depressed mood Thought Process: goal directed thought process Thought Content: reality based without delusions, + loneliness and + guilt Suicidal Thoughts: denies suicidal plan and denies suicidal intent; + reports suicidal thoughts (intermittent, denies currently) Homicidal Thoughts: denies homicidal thoughts Hallucinations: no auditory hallucinations and no visual hallucinations Cognition: remote memory grossly intact, attention grossly intact and language grossly intact; + recent memory not intact Estimated Intelligence: consistent with education level Insight: + limited insight Judgment: + limited judgement Vital Signs (Past 24 Hours) Last Vital Signs Temp 35.7 C L 04/28/25 06:00 Pulse 72 04/28/25 06:01 Resp 18 04/28/25 06:00 BP 115/77 04/28/25 06:01 Pulse Ox 97 04/28/25 06:00 O2 Del Method Room Air 04/28/25 06:00 Results & Data ([facility]) Laboratory Results Laboratory Results - last 24 hr 04/27/25 07:28 Estimat Average Glucose 82 Hemoglobin A1c 4.5 Marlton 0.3 L RPR Pending Treponema pallidum Ab Positive H T.pallidum Ab (FTA-ABS) Pending Current Inpatient Medications Current Inpatient Medications: Current Inpatient Medications Acetaminophen (Acetaminophen 325 Mg Tab) 650 mg PO Q4H PRN PRN Reason: Headache or Minor Fever Stop: 05/26/25 18:08 Al Hydrox/Mg Hydrox/Simethicone (Aluminum/Magnesium Susp 30 Ml Udc) 30 ml PO Q4H PRN PRN Reason: GI Upset Stop: 05/26/25 18:08 Ascorbic Acid (Ascorbic Acid 500 Mg Tab) 250 mg PO QAM MARJAN Stop: 05/27/25 08:59 Last Admin: 04/27/25 09:23 Dose: 250 mg Benztropine Mesylate (Benztropine Mesylate 1 Mg Tab) 1 mg PO BID PRN PRN Reason: muscle stiffness Stop: 05/26/25 20:59 Bismuth Subsalicylate (Bismuth Subsalicylate 262 Mg Chew) 2 tab PO Q30M PRN PRN Reason: Loose Stool/Diarrhea Stop: 05/26/25 18:08 Buspirone HCl (Buspirone 15 Mg Tab) 30 mg PO BID MARJAN Stop: 05/26/25 20:59 Last Admin: 04/27/25 21:08 Dose: 30 mg Celecoxib (Celebrex 200 Mg Cap) 200 mg PO QAM PRN PRN Reason: Pain Stop: 05/26/25 19:53 Cetirizine HCl (Cetirizine Hcl 10 Mg Tablet) 10 mg PO DAILY PRN PRN Reason: allergies Stop: 05/26/25 19:53 Diphenoxylate HCl/Atropine (Diphenoxylate/Atropine 2.5/0.025mg Tab) 2 tab PO BID PRN PRN Reason: diarrhea Stop: 05/26/25 19:53 Duloxetine HCl (Duloxetine Hcl 60 Mg Cap) 60 mg PO BID MARJAN Stop: 05/27/25 20:59 Last Admin: 04/27/25 21:07 Dose: 60 mg Ferrous Sulfate (Ferrous Sulfate 325 Mg Tab) 325 mg PO QAM MARJAN Stop: 05/27/25 08:59 Last Admin: 04/27/25 09:27 Dose: 325 mg Fluticasone Propionate (Fluticasone Propionate Na Spr 16 Gm Btl) 1 sprays NA DAILY MARJAN Stop: 05/27/25 08:59 Last Admin: 04/27/25 09:28 Dose: 1 sprays Hydrochlorothiazide (Hydrochlorothiazide 25 Mg Tab) 25 mg PO DAILY MARJAN Stop: 05/27/25 08:59 Last Admin: 04/27/25 09:28 Dose: 25 mg Hydroxyzine HCl (Hydroxyzine Hcl 25 Mg Tab) 50 mg PO HSZ PRN PRN Reason: Insomnia Stop: 05/26/25 18:08 Hydroxyzine HCl (Hydroxyzine Hcl 25 Mg Tab) 25 mg PO Q4H PRN PRN Reason: Anxiety Stop: 05/26/25 18:08 Marlton Carbonate (Marlton Carbonate 300 Mg Tab) 300 mg PO HS MARJAN Stop: 05/27/25 21:59 Last Admin: 04/27/25 21:07 Dose: 300 mg Lorazepam (Lorazepam 0.5 Mg Tab) 0.5 mg PO DAILY PRN PRN Reason: Agitation/restlessness Stop: 05/28/25 08:59 Magnesium Hydroxide (Magnesium Hydroxide Susp 30 Ml Udc) 30 ml PO DAILY PRN PRN Reason: Constipation Stop: 05/26/25 18:08 Methocarbamol (Methocarbamol 750 Mg Tablet) 750 mg PO TID MARJAN Stop: 05/26/25 20:59 Last Admin: 04/27/25 21:07 Dose: 750 mg Miscellaneous (Order Awaiting Action--Biktarvy) 1 each N/A QS MARJAN Stop: 05/27/25 00:00 Last Admin: 04/27/25 17:28 Dose: Not Given Miscellaneous (Order Awaiting Action--Austedo 12mg) 1 each N/A QS MARJAN Stop: 05/27/25 00:00 Last Admin: 04/27/25 17:28 Dose: Not Given Multivitamins (Multivitamin Tab) 1 tab PO QAM MARJAN Stop: 05/27/25 08:59 Last Admin: 04/27/25 09:29 Dose: 1 tab Pregabalin (Pregabalin 150 Mg Cap) 300 mg PO BID MARJAN Stop: 05/26/25 20:59 Last Admin: 04/27/25 21:09 Dose: 300 mg Sodium Chloride (Sodium Chloride 0.65% Na Soln 45 Ml (Gregg)) 1 - 2 sprays NA PRN PRN PRN Reason: Nasal Dryness/Congestion Stop: 05/26/25 18:08 Vibegron (Vibegron 75 Mg Tab) 75 mg PO DAILY MARJAN Stop: 05/27/25 08:59 Last Admin: 04/27/25 09:30 Dose: 75 mg Vitamin D (Cholecalciferol 125 Mcg (5,000 Units) Tab) 125 mcg PO QAM MARJAN Stop: 05/27/25 08:59 Last Admin: 04/27/25 09:27 Dose: 125 mcg Mental Health & Subst Abuse Tx Psychiatrist Name of Psychiatrist: [facility] Psychiatrist's Date Of Appointment With Psychiatric Provider: 05/25/2025 Time of Appointment with Psychiatrist: 11:00AM Psychiatric Appointment Comment: This appointment was previously established - no earlier appt. available. Therapist Name of Therapist: Denita Can Therapist's Date of Therapist Appointment: 05/04/25 Time of Therapist Appointment: 1200PM Therapy Appointment Comment: In Person - Call to request earlier telehealth appointment if needed. Professor Of Spanish Name of Professor Of Spanish: Kimberly Hannah Phone Number for Professor Of Spanish: [phone] Post Discharge Appointments Primary Care Physician Name Of Family Doctor/PCP: Felicity Vigil MD Primary Care Live Source Operator Name of Live Source Operator: Yudi Lopez Phone Number of Live Source Operator: [phone]
[2025-04-28] MEDS: ACETAMINOPHEN 325 MG TAB PO PRN (15:17)
--- NOTE | 2025-04-29 08:32 | Infectious Disease Consult ---
Date of Consultation April 29, 2025 Assessment & Plan (1) Syphilis: Plan Problems: #Positive serum TPPA, c/f neurosyphilis #HIV: well controlled on Biktarvy, CD4 423 (26%) and VL <20 in 11/2024 #Bipolar affective disorder #Methamphetamine use disorder Micro: 04/27 serum TPPA: positive 09/28/23 RPR: neg Abx: None 59 yo M with bipolar affective disorder, JERICHO, methamphetamine use disorder, HIV on Bikarvy followed at [facility] admitted on 04/26 on 201 voluntary commitment for bizarre behavior and SI. TPPA is positive, with FTA-ABS and RPR pending. Per chart review, pt denies a history of known syphilis infection or treatment. Per outpatient ID notes, pt appears to have well-controlled HIV and is adherent to Biktarvy. Awaiting confirmatory FTA-ABS. RPR pending, but did have negative RPR in 09/28/23 per outpatient ID note. Recommendations: - LP for cell counts, protein, glucose, VDRL to evaluate for neurosyphilis - Follow-up serum FTA-ABS and RPR - Continue Biktarvy for HIV. Ordered CD4, VL Will continue to follow Consultation Information This patient recommendation is based on a telemedicine consult request which was completed asynchronously through chart review and information provided by the primary physician. The patient was not seen or examined today. The evaluation is consultative in nature and all patient care and treatment decisions can either be accepted or rejected by the patient's primary hospital-based treating physician using their own independent medical judgment for their patient. Shipyard Supervisor contact information: Please call [facility] . (Phone Number For Physician Use Only) An e-consult was done as the video cart is not functioning. Time Spent Reviewing Chart: 31+ minutes History of Present Illness Reason for Consultation: Evaluate for neurosyphilis Attending Physician: Tabby Crockett MD History of Present Illness 59 yo M with bipolar affective disorder, JERICHO, methamphetamine use disorder, HIV on Bikarvy followed at [facility] admitted on 04/26 on 201 voluntary commitment for bizarre behavior and SI. TPPA is positive, with FTA-ABS and RPR pending. Per chart review, pt denies a history of known syphilis infection or treatment. Allergies Allergy/AdvReac Type Severity Reaction Status Date / Time Fish Containing Products Allergy Severe d/t Verified 03/18/25 11:09 mercury allergy mercury (elemental) Allergy Severe Facial Verified 03/18/25 11:09 swelling, Nausea/Vomiting strawberry Allergy Intermediate rash Verified 03/18/25 11:09 shrimp AdvReac Severe ALL Verified 03/18/25 11:09 SEAFOOD D/T MERCURY RELATED. doxepin AdvReac Unknown CAN'T Verified 03/18/25 11:09 REMEMBER TOO LONG AGO Home Medications Medication Instructions Recorded Confirmed Type cetirizine 10 mg tablet (Zyrtec) 10 mg PO DAILY PRN allergies 10/15/23 04/26/25 History deutetrabenazine 12 mg tablet 12 mg PO BID 10/15/23 04/26/25 History (Austedo) multivitamin 1 tab PO DAILY 10/15/23 04/27/25 History duloxetine 60 mg capsule,delayed 60 mg PO BID #60 caps 05/09/24 04/26/25 Rx release celecoxib 200 mg capsule 200 mg PO QAM PRN Pain #90 caps 02/20/25 04/26/25 Rx fluticasone propionate 50 1 spray intranasal DAILY #16 grams 02/20/25 04/26/25 Rx mcg/actuation nasal spray,suspension (Flonase Allergy Relief) pregabalin 300 mg capsule 300 mg PO BID #60 caps 03/04/25 04/26/25 Rx diphenoxylate-atropine 2.5 2 tab PO BID PRN diarrhea #120 tabs 04/22/25 04/26/25 Rx mg-0.025 mg tablet (Lomotil) benztropine 0.5 mg tablet 1 mg PO BID 04/26/25 04/26/25 History bictegravir 50 mg-emtricitabine See Rx Instructions .Route .COMPLEX 04/26/25 04/26/25 History 200 mg-tenofovir alafenam 25 mg tablet (Biktarvy) bupropion HCl 150 mg 24 hr tablet, 150 mg PO DAILY 04/26/25 04/26/25 History extended release (Wellbutrin XL) buspirone 30 mg tablet 30 mg PO BID 04/26/25 04/26/25 History hydrochlorothiazide 25 mg tablet 25 mg PO DAILY 04/26/25 04/26/25 History lorazepam 0.5 mg tablet (Ativan) 0.5 mg DAILY 04/26/25 04/26/25 History methocarbamol 750 mg tablet 750 mg PO TID 04/26/25 04/26/25 History mirabegron 50 mg tablet,extended 50 mg PO DAILY 04/26/25 04/26/25 History release 24 hr (Myrbetriq) semaglutide (weight loss) 0.25 0.25 mg subcut MONTHLY 04/26/25 04/26/25 History mg/0.5 mL subcutaneous pen injector (Wegovy) fluphenazine HCl 5 mg tablet 5 mg PO DAILY 04/27/25 04/27/25 History lithium carbonate 150 mg capsule 300 mg PO HS 04/27/25 04/27/25 History pramipexole 0.125 mg tablet 0.125 mg PO TID 04/27/25 04/27/25 History Patient History Medical History Balance problem Irritable bowel syndrome with diarrhea Arthritis Hx of gastroesophageal reflux (GERD) History of anemia Migraine Pacemaker implanted d/t irregular beat/medtronic ? pt unsure>[place] cards (medtronic device) H/O amphetamine abuse History of kidney stones Chronotropic incompetence HIV (human immunodeficiency virus infection) Stroke-like symptom rulled out 2022 Dyskinesia of mouth Sleep apnea cpap Inguinal lymphadenitis Essential tremor all over body Bipolar disorder Depression Surgical History History of esophagogastroduodenoscopy (EGD) History of colonoscopy History of tooth extraction History of incision and drainage (03/28/23) Incision and Drainage with Debridement of Left Lower Extremity(Left) - Rios Dawkins, DO S/P cholecystectomy S/P gastric surgery 2014 Family History Mother Systemic lupus erythematosus Diabetes Father Prostate cancer Melanoma Myocardial infarction Other No family history of adverse response to anesthesia Ulcerative colitis Denies family history of Ovarian cancer Crohn's disease Breast cancer Colorectal cancer Irritable bowel syndrome Social History Smoking Status: Unknown if ever smoked Second Hand Exposure: Yes (as a child); Do You Dip or Chew Tobacco: No; Hx Alcohol Use: No Preferred Language: Setswana Communication Ability: Effective Visual Impairment: No Limitations Hearing Ability: Normal Car Knocker Required: No Beliefs That Will Affect Care: None marital status: Current Living Situation: Alone current occupational status: disabled Feels Safe at Home: Yes Childhood Exposure to Second-Hand Smoke: Yes Diet: regular caffeine: Yes Dental Care, Regularly: Yes Physical Activity Frequency: Daily Seatbelt Use: always Sunscreen Use: No Gender Identity: Male Assistive Devices: Glasses Results & Data Vital Signs (Past 12 Hours) Vital Signs Temp Pulse Resp BP 04/29/25 06:26 70 118/80 04/29/25 06:25 36.7 C 67 16 114/77
[2025-04-29] MEDS: BIKTARVY PO SCH (08:47)
--- NOTE | 2025-04-29 09:07 | Psychiatric Progress Note ---
Date of Service April 29, 2025 Impression / Recommendations Impression STIVEN GRIGGS is a 59-year-old man who currently lives in [place] alone, has a history of bipolar affective disorder, JERICHO, methamphetamine use disorder, and was admitted on 04/26/25 17:43 on a 201 voluntary commitment for bizarre behavior and SI. Diagnostically consistent with bipolar affective disorder current depressive episode versus mixed episode given bizarre behavior and confusion resulting in disrobing at his apartment pool. History and presentation also consistent with tardive dyskinesia secondary to prior antipsychotic exposure. Seems his depression and suicidal ideation and odd behaviors occurred in the setting of subtherapeutic lithium levels, recent psychosocial stressors including social isolation due to broken phone and positive urine drug screen for methamphetamine/amphetamines that conflicts with his self-report of no recent use. A: Ongoing depression. Appreciate ID consultation and input, LP planned for today and completed by IR for further workup. CSF results pending. MNPR given recent disrobing and positive syphilis antibody test Overall, I spent a total of 60 minutes on this case including meeting with the patient, reviewing the chart, nursing report, multidisciplinary team meeting, orders, and documentation, coordination with specialty services. (1) Suicidal ideation: (2) Bipolar affective disorder, current episode mixed: (3) Generalized anxiety disorder: (4) Bipolar 1 disorder: (5) Mild cognitive impairment: (6) Extrapyramidal and movement disorder, unspecified: (7) On HAART (highly active antiretroviral) therapy: Plan 04/29/2025: -LP with CSF panel per ID recommendations -Appreciate ID and IR assistance in caring for Daniel -Continue current psychiatric medications and tx plan for now 04/28/2025: -Consider further lithium titration but will follow syphilis workup first -Consult infectious disease for recommendations regarding need for TEST BORER workup/any further testing 04/27/2025: The patient was admitted to the [facility] ([facility] inpatient mental health unit) on q15 min checks (behavioral with suicide precautions) for safety. The patient will participate in group, recreational, and milieu therapies and will be offered additional individual and family sessions as clinically appropriate. -Discontinue fluphenazine -Discontinue Wellbutrin -Discontinue pramipexole -Continue [place] 300mg HS (consider further titration) -Continue Buspar 30mg BID -Continue duloxetine 60mg BID (reviewed and he understands this is a high dose which not confirm additional benefits but he feels it does help with depression and RLS) -Change ativan 0.5mg daily to daily prn (caution given history of amphetamine/methamphetamine use disorder but also with significant hx of akathisia so will continue for now if needed) -Change benztropine 1mg BID to prn given potential to worsen tardive dyskinesia over time and anticholinergic effects can worsen confusion and sedation Inventory Assets Strengths: supportive relationships, willing to get treatment Needs: safety and stabilization, medication adjustment, additional coping skills, increased outpatient services Suicide Risk Level Suicide Risk Level: Moderate (q15 min suicide checks) (recent SI, reckless behaviors and depression but denies current SI and feels safe in the hospital and feels able to ask for support) Risk Factors Assessment Male: Yes : Yes Do You Have Access To A Gun?: No Health Problems: Yes Mental Health Diagnoses: Yes Substance Use Disorders: Yes Previous Attempt: Yes Family History of Suicide: No Previous Psychiatric Hospitalization: Yes Hopelessness: No Protective Factors Assessment Employed: Yes ([employer]) Stable Relationships: Yes Good Rapport with Provider: Yes Interval History Identifying Information STIVEN GRIGGS is a 59-year-old man who currently lives in [place] alone, has a history of bipolar affective disorder, JERICHO, methamphetamine use disorder, and was admitted on 04/26/25 17:43 on a 201 voluntary commitment for bizarre behavior and SI. Chief Complaint "I'm down today". Review of Systems Sleep Information Total Hours of Sleep: 8 Meal Information Percent Meal Consumed - Breakfast: 100 Percent Meal Consumed - Lunch: 100 Percent Meal Consumed - Dinner: 75 Subjective Subjective Patient was seen & assessed and interval progress reviewed with treatment team. Slept well overnight. Today reports low mood due to it being his wedding anniversary and struggling with past regrets. Wonders "I just don't understand why I destroy all the things that I love?". Denies SI. Denies any medication side effects. Willing for LP today. Physical Exam Psychiatric Orientation: alert and oriented x 3 Apperance: appropriately dressed and + disheveled Eye Contact: good eye contact Motor Behavior: no abnormal motor movements Speech: normal rate/rhythm/volume of speech Affect: + depressed affect Mood: + depressed mood Thought Process: goal directed thought process Thought Content: reality based without delusions, + loneliness and + guilt Suicidal Thoughts: denies suicidal plan and denies suicidal intent; + reports suicidal thoughts (intermittent, denies currently) Homicidal Thoughts: denies homicidal thoughts Hallucinations: no auditory hallucinations and no visual hallucinations Cognition: remote memory grossly intact, attention grossly intact and language grossly intact; + recent memory not intact Estimated Intelligence: consistent with education level Insight: + fair insight Judgment: + fair judgement Vital Signs (Past 24 Hours) Last Vital Signs Temp 36.7 C 04/29/25 06:25 Pulse 70 04/29/25 06:26 Resp 16 04/29/25 06:25 BP 118/80 04/29/25 06:26 Pulse Ox 97 04/28/25 06:00 O2 Del Method Room Air 04/28/25 06:00 Results & Data ([facility]) Current Inpatient Medications Current Inpatient Medications: Current Inpatient Medications Acetaminophen (Acetaminophen 325 Mg Tab) 650 mg PO Q4H PRN PRN Reason: Headache or Minor Fever Stop: 05/26/25 18:08 Last Admin: 04/28/25 15:17 Dose: 650 mg Al Hydrox/Mg Hydrox/Simethicone (Aluminum/Magnesium Susp 30 Ml Udc) 30 ml PO Q4H PRN PRN Reason: GI Upset Stop: 05/26/25 18:08 Ascorbic Acid (Ascorbic Acid 500 Mg Tab) 250 mg PO QAM [facility] Stop: 05/27/25 08:59 Last Admin: 04/29/25 08:46 Dose: 250 mg Benztropine Mesylate (Benztropine Mesylate 1 Mg Tab) 1 mg PO BID PRN PRN Reason: muscle stiffness Stop: 05/26/25 20:59 Bictegravir/Emtricitabine/Tenofovir (Biktarvy [Patient Own Med]) 1 each PO DAILY MARJAN Stop: 05/29/25 08:59 Last Admin: 04/29/25 08:47 Dose: 1 each Bismuth Subsalicylate (Bismuth Subsalicylate 262 Mg Chew) 2 tab PO Q30M PRN PRN Reason: Loose Stool/Diarrhea Stop: 05/26/25 18:08 Buspirone HCl (Buspirone 15 Mg Tab) 30 mg PO BID MARJAN Stop: 05/26/25 20:59 Last Admin: 04/29/25 08:48 Dose: 30 mg Celecoxib (Celebrex 200 Mg Cap) 200 mg PO QAM PRN PRN Reason: Pain Stop: 05/26/25 19:53 Cetirizine HCl (Cetirizine Hcl 10 Mg Tablet) 10 mg PO DAILY PRN PRN Reason: allergies Stop: 05/26/25 19:53 Deutetrabenazine (Deutetrabenazine (Austedo)) 1 each PO BID MARJAN Stop: 05/28/25 20:59 Last Admin: 04/29/25 08:49 Dose: 1 each Diphenoxylate HCl/Atropine (Diphenoxylate/Atropine 2.5/0.025mg Tab) 2 tab PO BID PRN PRN Reason: diarrhea Stop: 05/26/25 19:53 Duloxetine HCl (Duloxetine Hcl 60 Mg Cap) 60 mg PO BID MARJAN Stop: 05/27/25 20:59 Last Admin: 04/29/25 08:49 Dose: 60 mg Ferrous Sulfate (Ferrous Sulfate 325 Mg Tab) 325 mg PO QAM MARJAN Stop: 05/27/25 08:59 Last Admin: 04/29/25 08:49 Dose: 325 mg Fluticasone Propionate (Fluticasone Propionate Na Spr 16 Gm Btl) 1 sprays NA DAILY MARJAN Stop: 05/27/25 08:59 Last Admin: 04/29/25 08:50 Dose: 1 sprays Hydrochlorothiazide (Hydrochlorothiazide 25 Mg Tab) 25 mg PO DAILY MARJAN Stop: 05/27/25 08:59 Last Admin: 04/29/25 08:50 Dose: 25 mg Hydroxyzine HCl (Hydroxyzine Hcl 25 Mg Tab) 50 mg PO HSZ PRN PRN Reason: Insomnia Stop: 05/26/25 18:08 Hydroxyzine HCl (Hydroxyzine Hcl 25 Mg Tab) 25 mg PO Q4H PRN PRN Reason: Anxiety Stop: 05/26/25 18:08 [place] Carbonate ([place] Carbonate 300 Mg Tab) 300 mg PO HS MARJAN Stop: 05/27/25 21:59 Last Admin: 04/28/25 20:45 Dose: 300 mg Lorazepam (Lorazepam 0.5 Mg Tab) 0.5 mg PO DAILY PRN PRN Reason: Agitation/restlessness Stop: 05/28/25 08:59 Magnesium Hydroxide (Magnesium Hydroxide Susp 30 Ml Udc) 30 ml PO DAILY PRN PRN Reason: Constipation Stop: 05/26/25 18:08 Methocarbamol (Methocarbamol 750 Mg Tablet) 750 mg PO TID MARJAN Stop: 05/26/25 20:59 Last Admin: 04/29/25 08:50 Dose: Not Given Multivitamins (Multivitamin Tab) 1 tab PO QAM MARJAN Stop: 05/27/25 08:59 Last Admin: 04/29/25 08:50 Dose: 1 tab Pregabalin (Pregabalin 150 Mg Cap) 300 mg PO BID MARJAN Stop: 05/26/25 20:59 Last Admin: 04/29/25 08:53 Dose: 300 mg Sodium Chloride (Sodium Chloride 0.65% Na Soln 45 Ml ([place])) 1 - 2 sprays NA PRN PRN PRN Reason: Nasal Dryness/Congestion Stop: 05/26/25 18:08 Vibegron (Vibegron 75 Mg Tab) 75 mg PO DAILY MARJAN Stop: 05/27/25 08:59 Last Admin: 04/29/25 08:51 Dose: 75 mg Vitamin D (Cholecalciferol 125 Mcg (5,000 Units) Tab) 125 mcg PO QAM MARJAN Stop: 05/27/25 08:59 Last Admin: 04/29/25 08:48 Dose: 125 mcg Mental Health & Subst Abuse Tx Psychiatrist Name of Psychiatrist: Allen Patel Psychiatrist's Date Of Appointment With Psychiatric Provider: 05/25/2025 Time of Appointment with Psychiatrist: 11:00AM Psychiatric Appointment Comment: This appointment was previously established - no earlier appt. available. Therapist Name of Therapist: Denita Can Therapist's Date of Therapist Appointment: 05/04/25 Time of Therapist Appointment: 1200PM Therapy Appointment Comment: In Person - Call to request earlier telehealth appointment if needed. Compliance Counsel Name of Compliance Counsel: iKmberly Hannah Phone Number for Compliance Counsel: [phone] Post Discharge Appointments Primary Care Physician Name Of Family Doctor/PCP: Felicity Vigil MD Primary Care Monitor Worker Name of Monitor Worker: Yudi Lopez Phone Number of Monitor Worker: [phone]
--- NOTE | 2025-04-29 14:08 | Fluoroscopy Report ---
LUMBAR PUNCTURE UNDER FLUOROSCOPY CLINICAL HISTORY: Syphilis PROCEDURE: Procedure and risks were explained. Informed consent was obtained. A final timeout was com pleted. The patient was placed prone on the fluoroscopic exam table. The lower lumbar region was prep ped and draped in sterile fashion. 1% lidocaine was utilized for skin anesthesia. Utilizing fluoroscopic guidance, a 20-gauge Sprotte spinal needle was advanced into the intrathecal s pace at the L3-4 disc space level. Fluoroscopic spot images were obtained. 8 mL of clear CSF fluid wa s removed and sent to lab for analysis. The needle was removed and Band-Aid applied. The patient tole rated the procedure well. Vital signs will be monitored postprocedure. Fluoroscopy time 8 seconds. Study dosed is 13.6 mGy. IMPRESSION: Lumbar puncture as above. Performed, dictated, and signed by Pollo Newman PA-C; to be co-signed by Dr. Devante Webber. Electronically signed by: Devante Webber M.D. 04/29/2025 2:25 PM
[2025-04-29 14:47] LABS: CSF Count Tube # 3; CSF Xanthrochromic No xanthochromia; Red Blood Cell CSF Manual 0 (0); White Blood Cell CSF Manual 2 (0-5)
[2025-04-30 06:34] VITALS: RESP 16
--- NOTE | 2025-04-30 09:01 | Psychiatric Progress Note ---
Date of Service April 30, 2025 Impression / Recommendations Impression STIVEN GRIGGS is a 59-year-old man who currently lives in [place] alone, has a history of bipolar affective disorder, JERICHO, methamphetamine use disorder, and was admitted on 04/26/25 17:43 on a 201 voluntary commitment for bizarre behavior and SI. Diagnostically consistent with bipolar affective disorder current depressive episode versus mixed episode given bizarre behavior and confusion resulting in disrobing at his apartment pool. History and presentation also consistent with tardive dyskinesia secondary to prior antipsychotic exposure. Seems his depression and suicidal ideation and odd behaviors occurred in the setting of subtherapeutic lithium levels, recent psychosocial stressors including social isolation due to broken phone and positive urine drug screen for methamphetamine/amphetamines that conflicts with his self-report of no recent use. A: Ongoing depression. VDRL CSF results pending. Appreciate ongoing involvement of ID. Reviewed his [place] dosing, he reports recently being on [place] 450mg BID, currently dose is much lower (seems med reconciliation and his initial review of this was possibly incorrect though lower dose fits with very low Li level). Regardless of past dosing he would like to titrate the [place] given its past benefit for his mood, I feel this is reasonable given low suspicion for SILENT syndrome at this point. Baseline labs of thyroid function, kidney fun ction, weight, electrolytes, CBC, and UA were preformed. Patient educated on risks of dehydration, renal, thyroid, cardiac, neurologic, drug interactions (NSAIDs, ACEIs, angiotensin receptor antagonists, current hydrochlorothiazide) and he states understanding of this. MNPR given recent disrobing and positive syphilis antibody test Overall, I spent a total of 36 minutes on this case including meeting with the patient, reviewing the chart, nursing report, multidisciplinary team meeting, orders, and documentation, coordination with specialty services. (1) Suicidal ideation: (2) Bipolar affective disorder, current episode mixed: (3) Generalized anxiety disorder: (4) Bipolar 1 disorder: (5) Mild cognitive impairment: (6) Extrapyramidal and movement disorder, unspecified: (7) On HAART (highly active antiretroviral) therapy: Plan 04/30/2025: -Increase [place] to 600mg HS 04/29/2025: -LP with CSF panel per ID recommendations -Appreciate ID and IR assistance in caring for Daniel -Continue current psychiatric medications and tx plan for now 04/28/2025: -Consider further lithium titration but will follow syphilis workup first -Consult infectious disease for recommendations regarding need for ILLUMINATOR workup/any further testing 04/27/2025: The patient was admitted to the [facility] ([facility] mental health unit) on q15 min checks (behavioral with suicide precautions) for safety. The patient will participate in group, recreational, and milieu therapies and will be offered additional individual and family sessions as clinically appropriate. -Discontinue fluphenazine -Discontinue Wellbutrin -Discontinue pramipexole -Continue [place] 300mg HS (consider further titration) -Continue Buspar 30mg BID -Continue duloxetine 60mg BID (reviewed and he understands this is a high dose which not confirm additional benefits but he feels it does help with depression and RLS) -Change ativan 0.5mg daily to daily prn (caution given history of amphetamine/methamphetamine use disorder but also with significant hx of akathisia so will continue for now if needed) -Change benztropine 1mg BID to prn given potential to worsen tardive dyskinesia over time and anticholinergic effects can worsen confusion and sedation Inventory Assets Strengths: supportive relationships, willing to get treatment Needs: safety and stabilization, medication adjustment, additional coping skills, increased outpatient services Suicide Risk Level Suicide Risk Level: Moderate (q15 min suicide checks) (recent SI, reckless behaviors and depression but denies current SI and feels safe in the hospital and feels able to ask for support) Risk Factors Assessment Male: Yes : Yes Do You Have Access To A Gun?: No Health Problems: Yes Mental Health Diagnoses: Yes Substance Use Disorders: Yes Previous Attempt: Yes Family History of Suicide: No Previous Psychiatric Hospitalization: Yes Hopelessness: No Protective Factors Assessment Employed: Yes ([employer]) Stable Relationships: Yes Good Rapport with Provider: Yes Interval History Identifying Information STIVEN GRIGGS is a 59-year-old man who currently lives in [place] alone, has a history of bipolar affective disorder, JERICHO, methamphetamine use disorder, and was admitted on 04/26/25 17:43 on a 201 voluntary commitment for bizarre behavior and SI. Chief Complaint "I've been better". Review of Systems Sleep Information Total Hours of Sleep: 8 Meal Information Percent Meal Consumed - Breakfast: 100 Percent Meal Consumed - Lunch: 100 Percent Meal Consumed - Dinner: 50 Subjective Subjective Patient was seen & assessed and interval progress reviewed with nursing and social work. Attended evening group. Rated his mood as "fuzzy". Slept well last night, no side effects reported from LP. Today denies CARSON. Reports low mood, in part due to feeling rejected by his ex- . Notes he's trying not to dwell on this. Reflected that he is "really disturbed by not remembering" some of these recent events when he wandered into someone else's apartment and to the pool. He hasn't been able to find any patterns to explain these events except that it always happens on the weekend when he is alone. Notes that his supports during the week help a lot, does think having a job that has him working on sunday will help. Physical Exam Psychiatric Orientation: alert and oriented x 3 Apperance: appropriately dressed and + disheveled Eye Contact: good eye contact Motor Behavior: no abnormal motor movements Speech: normal rate/rhythm/volume of speech Affect: + depressed affect Mood: + depressed mood Thought Process: goal directed thought process Thought Content: reality based without delusions, + loneliness and + guilt Suicidal Thoughts: denies suicidal plan and denies suicidal intent; + reports suicidal thoughts (intermittent, denies currently) Homicidal Thoughts: denies homicidal thoughts Hallucinations: no auditory hallucinations and no visual hallucinations Cognition: remote memory grossly intact, attention grossly intact and language grossly intact; + recent memory not intact Estimated Intelligence: consistent with education level Insight: + fair insight Judgment: + fair judgement Vital Signs (Past 24 Hours) Last Vital Signs Temp 36.3 C L 04/30/25 06:32 Pulse 70 04/30/25 06:32 Resp 16 04/30/25 06:32 BP 108/71 04/30/25 06:32 Pulse Ox 97 04/30/25 06:32 O2 Del Method Room Air 04/30/25 06:32 Results & Data ([facility]) Laboratory Results Laboratory Results - last 24 hr 04/29/25 04/29/25 09:02 Unknown Fluid Comment CSF Appearance Clear CSF Color Colorless Xanthrochromic No xanthochromia CSF WBC 2 CSF RBC 0 CSF Cell Count Tube # 3 CSF Chemistry Tube # 2 CSF Glucose 59 CSF Total Protein 58.6 H CSF VDRL Pending Absolute Lymphocytes Pending % CD4 Cells Pending Absolute CD4 Count Pending HIV-1 RNA copies/mL Pending HIV-1 RNA logcopies/mL Pending Current Inpatient Medications Current Inpatient Medications: Current Inpatient Medications Acetaminophen (Acetaminophen 325 Mg Tab) 650 mg PO Q4H PRN PRN Reason: Headache or Minor Fever Stop: 05/26/25 18:08 Last Admin: 04/28/25 15:17 Dose: 650 mg Al Hydrox/Mg Hydrox/Simethicone (Aluminum/Magnesium Susp 30 Ml Udc) 30 ml PO Q4H PRN PRN Reason: GI Upset Stop: 05/26/25 18:08 Ascorbic Acid (Ascorbic Acid 500 Mg Tab) 250 mg PO QAM MARJAN Stop: 05/27/25 08:59 Last Admin: 04/30/25 08:21 Dose: 250 mg Benztropine Mesylate (Benztropine Mesylate 1 Mg Tab) 1 mg PO BID PRN PRN Reason: muscle stiffness Stop: 05/26/25 20:59 Bictegravir/Emtricitabine/Tenofovir (Biktarvy [Patient Own Med]) 1 each PO DAILY MARJAN Stop: 05/29/25 08:59 Last Admin: 04/30/25 08:23 Dose: 1 each Bismuth Subsalicylate (Bismuth Subsalicylate 262 Mg Chew) 2 tab PO Q30M PRN PRN Reason: Loose Stool/Diarrhea Stop: 05/26/25 18:08 Buspirone HCl (Buspirone 15 Mg Tab) 30 mg PO BID MARJAN Stop: 05/26/25 20:59 Last Admin: 04/30/25 08:23 Dose: 30 mg Celecoxib (Celebrex 200 Mg Cap) 200 mg PO QAM PRN PRN Reason: Pain Stop: 05/26/25 19:53 Cetirizine HCl (Cetirizine Hcl 10 Mg Tablet) 10 mg PO DAILY PRN PRN Reason: allergies Stop: 05/26/25 19:53 Deutetrabenazine (Deutetrabenazine (Austedo)) 1 each PO BID MARJAN Stop: 05/28/25 20:59 Last Admin: 04/30/25 08:24 Dose: 1 each Diphenoxylate HCl/Atropine (Diphenoxylate/Atropine 2.5/0.025mg Tab) 2 tab PO BID PRN PRN Reason: diarrhea Stop: 05/26/25 19:53 Duloxetine HCl (Duloxetine Hcl 60 Mg Cap) 60 mg PO BID MARJAN Stop: 05/27/25 20:59 Last Admin: 04/30/25 08:23 Dose: 60 mg Ferrous Sulfate (Ferrous Sulfate 325 Mg Tab) 325 mg PO QAM MARJAN Stop: 05/27/25 08:59 Last Admin: 04/30/25 08:21 Dose: 325 mg Fluticasone Propionate (Fluticasone Propionate Na Spr 16 Gm Btl) 1 sprays NA DAILY MARJAN Stop: 05/27/25 08:59 Last Admin: 04/30/25 08:24 Dose: 1 sprays Hydrochlorothiazide (Hydrochlorothiazide 25 Mg Tab) 25 mg PO DAILY MARJAN Stop: 05/27/25 08:59 Last Admin: 04/30/25 08:22 Dose: 25 mg Hydroxyzine HCl (Hydroxyzine Hcl 25 Mg Tab) 50 mg PO HSZ PRN PRN Reason: Insomnia Stop: 05/26/25 18:08 Hydroxyzine HCl (Hydroxyzine Hcl 25 Mg Tab) 25 mg PO Q4H PRN PRN Reason: Anxiety Stop: 05/26/25 18:08 [place] Carbonate ([place] Carbonate 300 Mg Tab) 300 mg PO HS MARJAN Stop: 05/27/25 21:59 Last Admin: 04/29/25 20:38 Dose: 300 mg Lorazepam (Lorazepam 0.5 Mg Tab) 0.5 mg PO DAILY PRN PRN Reason: Agitation/restlessness Stop: 05/28/25 08:59 Magnesium Hydroxide (Magnesium Hydroxide Susp 30 Ml Udc) 30 ml PO DAILY PRN PRN Reason: Constipation Stop: 05/26/25 18:08 Methocarbamol (Methocarbamol 750 Mg Tablet) 750 mg PO TID MARJAN Stop: 05/26/25 20:59 Last Admin: 04/30/25 08:21 Dose: 750 mg Multivitamins (Multivitamin Tab) 1 tab PO QAM MARJAN Stop: 05/27/25 08:59 Last Admin: 04/30/25 08:23 Dose: 1 tab Pregabalin (Pregabalin 150 Mg Cap) 300 mg PO BID MARJAN Stop: 05/26/25 20:59 Last Admin: 04/30/25 08:25 Dose: 300 mg Sodium Chloride (Sodium Chloride 0.65% Na Soln 45 Ml ([place])) 1 - 2 sprays NA PRN PRN PRN Reason: Nasal Dryness/Congestion Stop: 05/26/25 18:08 Vibegron (Vibegron 75 Mg Tab) 75 mg PO DAILY MARJAN Stop: 05/27/25 08:59 Last Admin: 04/30/25 08:22 Dose: 75 mg Vitamin D (Cholecalciferol 125 Mcg (5,000 Units) Tab) 125 mcg PO QAM MARJAN Stop: 05/27/25 08:59 Last Admin: 04/30/25 08:21 Dose: 125 mcg Mental Health & Subst Abuse Tx Psychiatrist Name of Psychiatrist: Allen Patel Psychiatrist's Date Of Appointment With Psychiatric Provider: 05/25/2025 Time of Appointment with Psychiatrist: 11:00AM Psychiatric Appointment Comment: This appointment was previously established - no earlier appt. available. Therapist Name of Therapist: Denita Can Therapist's Date of Therapist Appointment: 05/04/25 Time of Therapist Appointment: 1200PM Therapy Appointment Comment: In Person - Call to request earlier telehealth appointment if needed. Lead Software Tester Name of Lead Software Tester: Kimberly Crump Phone Number for Lead Software Tester: [phone] Post Discharge Appointments Primary Care Physician Name Of Family Doctor/PCP: Felicity Vigil MD Primary Care Machine Long Goods Helper Name of Machine Long Goods Helper: Yudi Lopez Phone Number of Machine Long Goods Helper: [phone] Specialist Name of Specialist: [facility] Phone Number for Specialist: [phone] Date of Appointment with Specialist: 06/24/25 Time of Appointment with Specialist: 12PM Specialty Appointment Comment: Neuropsych testing appt - [address] [facility] Contact Information Discharge Discharge Address: [facility] Holly Barrera [address] [address]
[2025-04-30 17:27] LABS: RPR NON-REACTIVE (NON-REACTIVE)
[2025-04-30] MEDS: LITHIUM CARBONATE 300 MG TAB PO SCH (20:41)
[2025-05-01 06:25] VITALS: O2SAT 96
--- NOTE | 2025-05-01 08:47 | Psychiatric Progress Note ---
Date of Service May 01, 2025 Impression / Recommendations Impression STIVEN GRIGGS is a 59-year-old man who currently lives in [place] alone, has a history of bipolar affective disorder, JERICHO, methamphetamine use disorder, and was admitted on 04/26/25 17:43 on a 201 voluntary commitment for bizarre behavior and SI. Diagnostically consistent with bipolar affective disorder current depressive episode versus mixed episode given bizarre behavior and confusion resulting in disrobing at his apartment pool. History and presentation also consistent with tardive dyskinesia secondary to prior antipsychotic exposure. Seems his depression and suicidal ideation and odd behaviors occurred in the setting of subtherapeutic lithium levels, recent psychosocial stressors including social isolation due to broken phone and positive urine drug screen for methamphetamine/amphetamines that conflicts with his self-report of no recent use. A: Ongoing depression and workup pending for neurosyphilis, VDRL CSF results pending. FTA-ABS was reactive which confirms previous result for T pallidum antibody of being positive. RPR negative. He consents to ongoing [place] titration and consolidation at , reviewed some data to suggest consolidated dosing is preferred as may be more protective for kidney function. MNPR given recent disrobing and positive syphilis antibody test Overall, I spent a total of 35 minutes on this case including meeting with the patient, reviewing the chart, nursing report, multidisciplinary team meeting, orders, and documentation, coordination with specialty services. (1) Suicidal ideation: (2) Bipolar affective disorder, current episode mixed: (3) Generalized anxiety disorder: (4) Bipolar 1 disorder: (5) Mild cognitive impairment: (6) Extrapyramidal and movement disorder, unspecified: (7) On HAART (highly active antiretroviral) therapy: Plan 05/01/2025: -Increase [place] to 900mg HS 04/30/2025: -Increase [place] to 600mg HS 04/29/2025: -LP with CSF panel per ID recommendations -Appreciate ID and IR assistance in caring for Daniel -Continue current psychiatric medications and tx plan for now 04/28/2025: -Consider further lithium titration but will follow syphilis workup first -Consult infectious disease for recommendations regarding need for [employer] workup/any further testing 04/27/2025: The patient was admitted [facility] ([facility]) on q15 min checks (behavioral with suicide precautions) for safety. The patient will participate in group, recreational, and milieu therapies and will be offered additional individual and family sessions as clinically appropriate. -Discontinue fluphenazine -Discontinue Wellbutrin -Discontinue pramipexole -Continue [place] 300mg HS (consider further titration) -Continue Buspar 30mg BID -Continue duloxetine 60mg BID (reviewed and he understands this is a high dose which not confirm additional benefits but he feels it does help with depression and RLS) -Change ativan 0.5mg daily to daily prn (caution given history of amphetamine/methamphetamine use disorder but also with significant hx of akathisia so will continue for now if needed) -Change benztropine 1mg BID to prn given potential to worsen tardive dyskinesia over time and anticholinergic effects can worsen confusion and sedation Inventory Assets Strengths: supportive relationships, willing to get treatment Needs: safety and stabilization, medication adjustment, additional coping skills, increased outpatient services Suicide Risk Level Suicide Risk Level: Moderate (q15 min suicide checks) (recent SI, reckless behaviors and depression but denies current SI and feels safe in the hospital and feels able to ask for support) Risk Factors Assessment Male: Yes : Yes Do You Have Access To A Gun?: No Health Problems: Yes Mental Health Diagnoses: Yes Substance Use Disorders: Yes Previous Attempt: Yes Family History of Suicide: No Previous Psychiatric Hospitalization: Yes Hopelessness: No Protective Factors Assessment Employed: Yes ([employer]) Stable Relationships: Yes Good Rapport with Provider: Yes Interval History Identifying Information STIVEN GRIGGS is a 59-year-old man who currently lives in [place] alone, has a history of bipolar affective disorder, JERICHO, methamphetamine use disorder, and was admitted on 04/26/25 17:43 on a 201 voluntary commitment for bizarre behavior and SI. Chief Complaint "Feeling ok". Review of Systems Sleep Information Total Hours of Sleep: 8.25 Meal Information Percent Meal Consumed - Breakfast: 100 Percent Meal Consumed - Lunch: 100 Percent Meal Consumed - Dinner: 100 Subjective Subjective Patient was seen & assessed and interval progress reviewed with treatment team. Attending groups. Rated his mood as "confused" last evening. Today reports his mood is "ok". Tolerating [place] changes and goal of nighttime consolidation. Reviewed potential options of increasing structure over the weekend like going to the [facility] for exercise class. Reviewed return of syphilis antibody test which confirms previous result but still awaiting CSF VDRL results. Physical Exam Psychiatric Orientation: alert and oriented x 3 Apperance: appropriately dressed and + disheveled Eye Contact: good eye contact Motor Behavior: no abnormal motor movements Speech: normal rate/rhythm/volume of speech Affect: + depressed affect Mood: + depressed mood Thought Process: goal directed thought process Thought Content: reality based without delusions, + loneliness and + guilt Suicidal Thoughts: denies suicidal plan and denies suicidal intent; + reports suicidal thoughts (intermittent, denies currently) Homicidal Thoughts: denies homicidal thoughts Hallucinations: no auditory hallucinations and no visual hallucinations Cognition: remote memory grossly intact, attention grossly intact and language grossly intact; + recent memory not intact Estimated Intelligence: consistent with education level Insight: + fair insight Judgment: + fair judgement Vital Signs (Past 24 Hours) Last Vital Signs Temp 36.4 C 05/01/25 06:23 Pulse 69 05/01/25 06:24 Resp 16 05/01/25 06:23 BP 100/71 05/01/25 06:24 Pulse Ox 96 05/01/25 06:23 O2 Del Method Room Air 05/01/25 06:23 Results & Data ([facility]) Laboratory Results Laboratory Results - last 24 hr 04/27/25 07:28 RPR NON-REACTIVE T.pallidum Ab (FTA-ABS) Reactive A Current Inpatient Medications Current Inpatient Medications: Current Inpatient Medications Acetaminophen (Acetaminophen 325 Mg Tab) 650 mg PO Q4H PRN PRN Reason: Headache or Minor Fever Stop: 05/26/25 18:08 Last Admin: 04/28/25 15:17 Dose: 650 mg Al Hydrox/Mg Hydrox/Simethicone (Aluminum/Magnesium Susp 30 Ml Udc) 30 ml PO Q4H PRN PRN Reason: GI Upset Stop: 05/26/25 18:08 Ascorbic Acid (Ascorbic Acid 500 Mg Tab) 250 mg PO QAM MARJAN Stop: 05/27/25 08:59 Last Admin: 04/30/25 08:21 Dose: 250 mg Benztropine Mesylate (Benztropine Mesylate 1 Mg Tab) 1 mg PO BID PRN PRN Reason: muscle stiffness Stop: 05/26/25 20:59 Bictegravir/Emtricitabine/Tenofovir (Biktarvy [Patient Own Med]) 1 each PO DAILY MARJAN Stop: 05/29/25 08:59 Last Admin: 08/21/25 08:23 Dose: 1 each Bismuth Subsalicylate (Bismuth Subsalicylate 262 Mg Chew) 2 tab PO Q30M PRN PRN Reason: Loose Stool/Diarrhea Stop: 05/26/25 18:08 Buspirone HCl (Buspirone 15 Mg Tab) 30 mg PO BID MARJAN Stop: 05/26/25 20:59 Last Admin: 04/30/25 20:41 Dose: 30 mg Celecoxib (Celebrex 200 Mg Cap) 200 mg PO QAM PRN PRN Reason: Pain Stop: 05/26/25 19:53 Cetirizine HCl (Cetirizine Hcl 10 Mg Tablet) 10 mg PO DAILY PRN PRN Reason: allergies Stop: 05/26/25 19:53 Deutetrabenazine (Deutetrabenazine ([place]usted[place])) 1 each PO BID MARJAN Stop: 05/28/25 20:59 Last Admin: 04/30/25 20:40 Dose: 1 each Diphenoxylate HCl/Atropine (Diphenoxylate/Atropine 2.5/0.025mg Tab) 2 tab PO BID PRN PRN Reason: diarrhea Stop: 05/26/25 19:53 Duloxetine HCl (Duloxetine Hcl 60 Mg Cap) 60 mg PO BID MARJAN Stop: 05/27/25 20:59 Last Admin: 04/30/25 20:41 Dose: 60 mg Ferrous Sulfate (Ferrous Sulfate 325 Mg Tab) 325 mg PO QAM MARJAN Stop: 05/27/25 08:59 Last Admin: 04/30/25 08:21 Dose: 325 mg Fluticasone Propionate (Fluticasone Propionate Na Spr 16 Gm Btl) 1 sprays NA DAILY MARJAN Stop: 05/27/25 08:59 Last Admin: 04/30/25 08:24 Dose: 1 sprays Hydrochlorothiazide (Hydrochlorothiazide 25 Mg Tab) 25 mg PO DAILY MARJAN Stop: 05/27/25 08:59 Last Admin: 04/30/25 08:22 Dose: 25 mg Hydroxyzine HCl (Hydroxyzine Hcl 25 Mg Tab) 50 mg PO HSZ PRN PRN Reason: Insomnia Stop: 05/26/25 18:08 Hydroxyzine HCl (Hydroxyzine Hcl 25 Mg Tab) 25 mg PO Q4H PRN PRN Reason: Anxiety Stop: 05/26/25 18:08 [place] Carbonate ([place] Carbonate 300 Mg Tab) 600 mg PO HS MARJAN Stop: 05/30/25 21:59 Last Admin: 04/30/25 20:41 Dose: 600 mg Lorazepam (Lorazepam 0.5 Mg Tab) 0.5 mg PO DAILY PRN PRN Reason: Agitation/restlessness Stop: 05/28/25 08:59 Magnesium Hydroxide (Magnesium Hydroxide Susp 30 Ml Udc) 30 ml PO DAILY PRN PRN Reason: Constipation Stop: 05/26/25 18:08 Methocarbamol (Methocarbamol 750 Mg Tablet) 750 mg PO TID MARJAN Stop: 05/26/25 20:59 Last Admin: 04/30/25 20:41 Dose: 750 mg Multivitamins (Multivitamin Tab) 1 tab PO QAM MARJAN Stop: 05/27/25 08:59 Last Admin: 04/30/25 08:23 Dose: 1 tab Pregabalin (Pregabalin 150 Mg Cap) 300 mg PO BID MARJAN Stop: 05/26/25 20:59 Last Admin: 04/30/25 20:42 Dose: 300 mg Sodium Chloride (Sodium Chloride 0.65% Na Soln 45 Ml ([place])) 1 - 2 sprays NA PRN PRN PRN Reason: Nasal Dryness/Congestion Stop: 05/26/25 18:08 Vibegron (Vibegron 75 Mg Tab) 75 mg PO DAILY MARJAN Stop: 05/27/25 08:59 Last Admin: 04/30/25 08:22 Dose: 75 mg Vitamin D (Cholecalciferol 125 Mcg (5,000 Units) Tab) 125 mcg PO QAM MARJAN Stop: 05/27/25 08:59 Last Admin: 04/30/25 08:21 Dose: 125 mcg Mental Health & Subst Abuse Tx Psychiatrist Name of Psychiatrist: [facility] Psychiatrist's Date Of Appointment With Psychiatric Provider: 05/25/2025 Time of Appointment with Psychiatrist: 11:00AM Psychiatric Appointment Comment: This appointment was previously established - no earlier appt. available. Therapist Name of Therapist: Denita Can Therapist's Date of Therapist Appointment: 05/04/25 Time of Therapist Appointment: 1200PM Therapy Appointment Comment: In Person - Call to request earlier telehealth appointment if needed. Expense Clerk Name of Expense Clerk: Kimberly Garnica Phone Number for Expense Clerk: [phone] Post Discharge Appointments Primary Care Physician Name Of Family Doctor/PCP: Felicity Vigil MD Primary Care [employer] Name of [employer]: Yudi Barger Phone Number of [employer]: [phone] Specialist Name of Specialist: [facility] Phone Number for Specialist: [phone] Date of Appointment with Specialist: 06/24/25 Time of Appointment with Specialist: 12PM Specialty Appointment Comment: Neuropsych testing appt - [address] [facility] [place] Contact Information Discharge Discharge Address: [facility] [place] Mitchell [address] [address]
[2025-05-01] MEDS ORDERED: hydroCHLOROthiazide 25 MG TAB PO PRN (12:37)
[2025-05-01] MEDS ORDERED: METHOCARBAMOL 750 MG TABLET PO PRN (12:37)
[2025-05-01 15:32] LABS: Amphetamine Urine, Confirm 1276 ng/mL (<250); Methamphetamine, Ur Confirm 2106 ng/mL (<250)
--- NOTE | 2025-05-01 15:59 | Infectious Disease Progress Nt ---
Date of Service May 01, 2025 Assessment & Plan (1) Syphilis: Plan Problems: #Positive serum TPPA, c/f neurosyphilis #HIV: well controlled on Biktarvy, CD4 423 (26%) and VL <20 in 11/2024 #Bipolar affective disorder #Methamphetamine use disorder Micro: 04/27 RPR: nonreactive 04/27 FTA-ABS: reactive 04/27 serum TPPA: positive 09/28/23 RPR: neg Abx: None 59 yo M with bipolar affective disorder, JERICHO, methamphetamine use disorder, HIV on Bikarvy followed at [facility] admitted on 04/26 on 201 voluntary commitment for bizarre behavior and SI. TPPA and FTA-ABS are positive, with negative RPR. Per chart review, pt denies a history of known syphilis infection or treatment. Per outpatient ID notes, pt appears to have well-controlled HIV and is adherent to Biktarvy. LP performed 04/29/25 to evaluate for neurosyphilis, which showed WBC 2, protein 58.6, VDRL pending. Recommendations: - Follow-up CSF VDRL: if this is positive, would plan to treat for neurosyphilis with penicillin G 24 million units continuous IV infusion for 14 days, followed by one dose of penicillin G benzathine 2.4 MU IM once. 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 Follow-up CD4 and VL Please note that ID does not round or write notes over the weekend. If questions or concerns arise, please contact the Infectious Disease Call Center and ask to speak with the covering ID physician. Admission and Anticipated Discharge Date Admission Date: April 26, 2025 Subjective This patient recommendation is based on a telemedicine consult request which was completed asynchronously through chart review and information provided by the primary physician. The patient was not seen or examined today. The evaluation is consultative in nature and all patient care and treatment decisions can either be accepted or rejected by the patient's primary hospital-based treating physician using their own independent medical judgment for their patient. Time Spent Reviewing Chart: 11 - 20 minutes No acute events Results & Data Vital Signs (Past 12 Hours) Vital Signs Temp Pulse Resp BP Pulse Ox O2 Del Method 05/01/25 06:24 69 100/71 05/01/25 06:23 36.4 C 59 L 16 109/71 96 Room Air
[2025-05-01] MEDS: LITHIUM CARBONATE 300 MG TAB PO SCH (20:48)
--- NOTE | 2025-05-02 09:40 | Psychiatric Progress Note ---
Date of Service May 02, 2025 Impression / Recommendations Impression STIVEN GRIGGS is a 59-year-old man who currently lives in [place] alone, has a history of bipolar affective disorder, JERICHO, methamphetamine use disorder, and was admitted on 04/26/25 17:43 on a 201 voluntary commitment for bizarre behavior and SI. Diagnostically consistent with bipolar affective disorder current depressive episode versus mixed episode given bizarre behavior and confusion resulting in disrobing at his apartment pool. History and presentation also consistent with tardive dyskinesia secondary to prior antipsychotic exposure. Seems his depression and suicidal ideation and odd behaviors occurred in the setting of subtherapeutic lithium levels, recent psychosocial stressors including social isolation due to broken phone and positive urine drug screen for methamphetamine/amphetamines that conflicts with his self-report of no recent use. A: Ongoing depression and workup pending for neurosyphilis, VDRL CSF results pending. Processed psycho stressors especially managing loneliness because abandonment in the context of his romantic relationship seems to be one the biggest factors which influences his depression and risk of suicidality. Overall, I spent a total of 37 minutes on this case including meeting with the patient, reviewing the chart, nursing report, multidisciplinary team meeting, orders, and documentation, coordination with specialty services. (1) Suicidal ideation: (2) Bipolar affective disorder, current episode mixed: (3) Generalized anxiety disorder: (4) Bipolar 1 disorder: (5) Mild cognitive impairment: (6) Extrapyramidal and movement disorder, unspecified: (7) On HAART (highly active antiretroviral) therapy: Plan 05/02/2025: -Continue current medications and tx plan 05/01/2025: -Increase [place] to 900mg HS 04/30/2025: -Increase [place] to 600mg HS 04/29/2025: -LP with CSF panel per ID recommendations -Appreciate ID and IR assistance in caring for Daniel -Continue current psychiatric medications and tx plan for now 04/28/2025: -Consider further lithium titration but will follow syphilis workup first -Consult infectious disease for recommendations regarding need for DRAPERY EXAMINER workup/a ny further testing 04/27/2025: The patient was admitted to the [facility] ([facility] mental health unit) on q15 min checks (behavioral with suicide precautions) for safety. The patient will participate in group, recreational, and milieu therapies and will be offered additional individual and family sessions as clinically appropriate. -Discontinue fluphenazine -Discontinue Wellbutrin -Discontinue pramipexole -Continue [place] 300mg HS (consider further titration) -Continue Buspar 30mg BID -Continue duloxetine 60mg BID (reviewed and he understands this is a high dose which not confirm additional benefits but he feels it does help with depression and RLS) -Change ativan 0.5mg daily to daily prn (caution given history of amphetamine/methamphetamine use disorder but also with significant hx of akathisia so will continue for now if needed) -Change benztropine 1mg BID to prn given potential to worsen tardive dyskinesia over time and anticholinergic effects can worsen confusion and sedation Inventory Assets Strengths: supportive relationships, willing to get treatment Needs: safety and stabilization, medication adjustment, additional coping skills, increased outpatient services Suicide Risk Level Suicide Risk Level: Moderate (q15 min suicide checks) (recent SI, reckless behaviors and depression but denies current SI and feels safe in the hospital and feels able to ask for support) Risk Factors Assessment Male: Yes : Yes Do You Have Access To A Gun?: No Health Problems: Yes Mental Health Diagnoses: Yes Substance Use Disorders: Yes Previous Attempt: Yes Family History of Suicide: No Previous Psychiatric Hospitalization: Yes Hopelessness: No Protective Factors Assessment Employed: Yes ([employer]) Stable Relationships: Yes Good Rapport with Provider: Yes Interval History Identifying Information STIVEN GRIGGS is a 59-year-old man who currently lives in [place] alone, has a history of bipolar affective disorder, JERICHO, methamphetamine use disorder, and was admitted on 04/26/25 17:43 on a 201 voluntary commitment for bizarre behavior and SI. Chief Complaint "I don't know". Review of Systems Sleep Information Total Hours of Sleep: 9.5 Meal Information Percent Meal Consumed - Breakfast: 100 Percent Meal Consumed - Lunch: 90 Percent Meal Consumed - Dinner: 100 Subjective Subjective Patient was seen & assessed and interval progress reviewed with nursing and social work. Attending groups. Today reports his mood is lower and attributes this to having "unpleasant flashbacks" of past negative memories. We reflect that this commonly occurs when he feels abandoned or rejected by his . Discussed their challenging dynamic and that Sterling will often distance himself for periods of time and then show back up in Daniel's life. He's not at a place where he wants to end things completely and try to move on with a different partner because he still deeply loves Sterling. Was a little harder for him to fall asleep but once asleep he slept well. Tolerating the medications without side effects. Physical Exam Psychiatric Orientation: alert and oriented x 3 Apperance: appropriately dressed and + disheveled Eye Contact: good eye contact Motor Behavior: no abnormal motor movements Speech: normal rate/rhythm/volume of speech Affect: + depressed affect Mood: + depressed mood Thought Process: goal directed thought process Thought Content: reality based without delusions and + loneliness Suicidal Thoughts: denies suicidal plan and denies suicidal intent; + reports suicidal thoughts (intermittent, denies currently) Homicidal Thoughts: denies homicidal thoughts Hallucinations: no auditory hallucinations and no visual hallucinations Cognition: remote memory grossly intact, attention grossly intact and language grossly intact; + recent memory not intact Estimated Intelligence: consistent with education level Insight: + fair insight Judgment: + fair judgement Vital Signs (Past 24 Hours) Last Vital Signs Temp 36.9 C 05/02/25 06:25 Pulse 71 05/02/25 06:26 Resp 16 05/02/25 06:25 BP 104/73 05/02/25 06:26 Pulse Ox 96 05/01/25 06:23 O2 Del Method Room Air 05/01/25 06:23 Results & Data ([facility]) Laboratory Results Laboratory Results - last 24 hr 04/26/25 14:46 U Amphetamines Confirm 1276 H U Methamphetamin Confrm 2106 H Drug Screen Comment SEE NOTE Current Inpatient Medications Current Inpatient Medications: Current Inpatient Medications Acetaminophen (Acetaminophen 325 Mg Tab) 650 mg PO Q4H PRN PRN Reason: Headache or Minor Fever Stop: 05/26/25 18:08 Last Admin: 04/28/25 15:17 Dose: 650 mg Al Hydrox/Mg Hydrox/Simethicone (Aluminum/Magnesium Susp 30 Ml Udc) 30 ml PO Q4H PRN PRN Reason: GI Upset Stop: 05/26/25 18:08 Ascorbic Acid (Ascorbic Acid 500 Mg Tab) 250 mg PO QAM MARJAN Stop: 05/27/25 08:59 Last Admin: 05/02/25 08:26 Dose: 250 mg Benztropine Mesylate (Benztropine Mesylate 1 Mg Tab) 1 mg PO BID PRN PRN Reason: muscle stiffness Stop: 05/26/25 20:59 Bictegravir/Emtricitabine/Tenofovir (Biktarvy [Patient Own Med]) 1 each PO DAILY MARJAN Stop: 05/29/25 08:59 Last Admin: 05/02/25 08:28 Dose: 1 each Bismuth Subsalicylate (Bismuth Subsalicylate 262 Mg Chew) 2 tab PO Q30M PRN PRN Reason: Loose Stool/Diarrhea Stop: 05/26/25 18:08 Buspirone HCl (Buspirone 15 Mg Tab) 30 mg PO BID MARJAN Stop: 05/26/25 20:59 Last Admin: 05/02/25 08:27 Dose: 30 mg Celecoxib (Celebrex 200 Mg Cap) 200 mg PO QAM PRN PRN Reason: Pain Stop: 05/26/25 19:53 Cetirizine HCl (Cetirizine Hcl 10 Mg Tablet) 10 mg PO DAILY PRN PRN Reason: allergies Stop: 05/26/25 19:53 Deutetrabenazine (Deutetrabenazine (Austedo)) 1 each PO BID MARJAN Stop: 05/28/25 20:59 Last Admin: 05/02/25 08:28 Dose: 1 each Diphenoxylate HCl/Atropine (Diphenoxylate/Atropine 2.5/0.025mg Tab) 2 tab PO BID PRN PRN Reason: diarrhea Stop: 05/26/25 19:53 Duloxetine HCl (Duloxetine Hcl 60 Mg Cap) 60 mg PO BID MARJAN Stop: 05/27/25 20:59 Last Admin: 05/02/25 08:27 Dose: 60 mg Ferrous Sulfate (Ferrous Sulfate 325 Mg Tab) 325 mg PO QAM MARJAN Stop: 05/27/25 08:59 Last Admin: 05/02/25 08:27 Dose: 325 mg Fluticasone Propionate (Fluticasone Propionate Na Spr 16 Gm Btl) 1 sprays NA DAILY MARJAN Stop: 05/27/25 08:59 Last Admin: 05/02/25 08:28 Dose: 1 sprays Hydrochlorothiazide (Hydrochlorothiazide 25 Mg Tab) 25 mg PO DAILY PRN PRN Reason: leg swelling Stop: 05/27/25 08:59 Hydroxyzine HCl (Hydroxyzine Hcl 25 Mg Tab) 50 mg PO HSZ PRN PRN Reason: Insomnia Stop: 05/26/25 18:08 Hydroxyzine HCl (Hydroxyzine Hcl 25 Mg Tab) 25 mg PO Q4H PRN PRN Reason: Anxiety Stop: 05/26/25 18:08 [place] Carbonate ([place] Carbonate 300 Mg Tab) 900 mg PO HS MARJAN Stop: 05/31/25 21:59 Last Admin: 05/01/25 20:48 Dose: 900 mg Lorazepam (Lorazepam 0.5 Mg Tab) 0.5 mg PO DAILY PRN PRN Reason: Agitation/restlessness Stop: 05/28/25 08:59 Magnesium Hydroxide (Magnesium Hydroxide Susp 30 Ml Udc) 30 ml PO DAILY PRN PRN Reason: Constipation Stop: 05/26/25 18:08 Methocarbamol (Methocarbamol 750 Mg Tablet) 750 mg PO TID PRN PRN Reason: muscle spasm Stop: 05/26/25 20:59 Multivitamins (Multivitamin Tab) 1 tab PO QAM MARJAN Stop: 05/27/25 08:59 Last Admin: 05/02/25 08:27 Dose: 1 tab Pregabalin (Pregabalin 150 Mg Cap) 300 mg PO BID MARJAN Stop: 05/26/25 20:59 Last Admin: 05/02/25 08:25 Dose: 300 mg Sodium Chloride (Sodium Chloride 0.65% Na Soln 45 Ml ([place])) 1 - 2 sprays NA PRN PRN PRN Reason: Nasal Dryness/Congestion Stop: 05/26/25 18:08 Vibegron (Vibegron 75 Mg Tab) 75 mg PO DAILY MARJAN Stop: 05/27/25 08:59 Last Admin: 05/02/25 08:27 Dose: 75 mg Vitamin D (Cholecalciferol 125 Mcg (5,000 Units) Tab) 125 mcg PO QAM MARJAN Stop: 05/27/25 08:59 Last Admin: 05/02/25 08:27 Dose: 125 mcg Mental Health & Subst Abuse Tx Psychiatrist Name of Psychiatrist: Allen Patel Psychiatrist's Date Of Appointment With Psychiatric Provider: 05/25/2025 Time of Appointment with Psychiatrist: 11:00AM Psychiatric Appointment Comment: This appointment was previously established - no earlier appt. available. Therapist Name of Therapist: Denita Can Therapist's Date of Therapist Appointment: 05/06/25 Time of Therapist Appointment: 3PM Therapy Appointment Comment: Telehealth appt Production Sorter Name of Production Sorter: Kimberly Garnica Phone Number for Production Sorter: [phone] Post Discharge Appointments Primary Care Physician Name Of Family Doctor/PCP: Felicity Vigil MD Primary Care Customer Service Dispatcher Name of Customer Service Dispatcher: Yudi Barger Phone Number of Customer Service Dispatcher: [phone] Specialist Name of Specialist: Yumiko [facility], [facility] Phone Number for Specialist: [phone] Date of Appointment with Specialist: 06/24/25 Time of Appointment with Specialist: 12PM Specialty Appointment Comment[facility] Contact Information Discharge Discharge Address: [facility] [place] [address] [address]
--- NOTE | 2025-05-03 09:59 | Psychiatric Progress Note ---
Date of Service May 03, 2025 Impression / Recommendations Impression STIVEN GRIGGS is a 59-year-old man who currently lives in [place] alone, has a history of bipolar affective disorder, JERICHO, methamphetamine use disorder, and was admitted on 04/26/25 17:43 on a 201 voluntary commitment for bizarre behavior and SI. Diagnostically consistent with bipolar affective disorder current depressive episode versus mixed episode given bizarre behavior and confusion resulting in disrobing at his apartment pool. History and presentation also consistent with tardive dyskinesia secondary to prior antipsychotic exposure. Seems his depression and suicidal ideation and odd behaviors occurred in the setting of subtherapeutic lithium levels, recent psychosocial stressors including social isolation due to broken phone and positive urine drug screen for methamphetamine/amphetamines that conflicts with his self-report of no recent use. A: Mood improving, VDRL CSF results are nonreactive. ID can weigh in tomorrow on need for any further workup or treatment for positive antibody results. Overall, I spent a total of 32 minutes on this case including meeting with the patient, reviewing the chart, nursing report, multidisciplinary team meeting, orders, and documentation, coordination with specialty services. (1) Bipolar affective disorder, current episode mixed: (2) Generalized anxiety disorder: (3) Bipolar 1 disorder: (4) Mild cognitive impairment: (5) Extrapyramidal and movement disorder, unspecified: (6) On HAART (highly active antiretroviral) therapy: Plan 05/03/2025: -Continue current medications and tx plan 05/02/2025: -Continue current medications and tx plan 05/01/2025: -Increase [place] to 900mg HS 04/30/2025: -Increase [place] to 600mg HS 04/29/2025: -LP with CSF panel per ID recommendations -Appreciate ID and IR assistance in caring for Daniel -Continue current psychiatric medications and tx plan for now 04/28/2025: -Consider further lithium titration but will follow syphilis workup first -Consult infectious disease for recommendations regarding need for GUN NUMBER workup/any further testing 04/27/2025: The patient was admitted to the [facility] ([facility] mental health unit) on q15 min checks (behavioral with suicide precautions) for safety. The patient will participate in group, recreational, and milieu therapies and will be offered additional individual and family sessions as clinically appropriate. -Discontinue fluphenazine -Discontinue Wellbutrin -Discontinue pramipexole -Continue [place] 300mg HS (consider further titration) -Continue Buspar 30mg BID -Continue duloxetine 60mg BID (reviewed and he understands this is a high dose which not confirm additional benefits but he feels it does help with depression and RLS) -Change ativan 0.5mg daily to daily prn (caution given history of amphetamine/methamphetamine use disorder but also with significant hx of akathisia so will continue for now if needed) -Change benztropine 1mg BID to prn given potential to worsen tardive dyskinesia over time and anticholinergic effects can worsen confusion and sedation Inventory Assets Strengths: supportive relationships, willing to get treatment Needs: safety and stabilization, medication adjustment, additional coping skills, increased outpatient services Suicide Risk Level Suicide Risk Level: Moderate (q15 min suicide checks) (recent SI, reckless behaviors and depression but denies current SI and feels safe in the hospital and feels able to ask for support) Risk Factors Assessment Male: Yes : Yes Do You Have Access To A Gun?: No Health Problems: Yes Mental Health Diagnoses: Yes Substance Use Disorders: Yes Previous Attempt: Yes Family History of Suicide: No Previous Psychiatric Hospitalization: Yes Hopelessness: No Protective Factors Assessment Employed: Yes ([employer]) Stable Relationships: Yes Good Rapport with Provider: Yes Interval History Identifying Information STIVNE GRIGGS is a 59-year-old man who currently lives in [place] alone, has a history of bipolar affective disorder, JERICHO, methamphetamine use disorder, and was admitted on 04/26/25 17:43 on a 201 voluntary commitment for bizarre behavior and SI. Chief Complaint "A little anxious". Review of Systems Sleep Information Total Hours of Sleep: 8 Meal Information Percent Meal Consumed - Breakfast: 100 Percent Meal Consumed - Lunch: 100 Percent Meal Consumed - Dinner: 100 Subjective Subjective Patient was seen & assessed and interval progress reviewed with nursing and social work. Attending groups. Visited with his peer support. Brighter affect last evening. Rated his mood as "calm". Denied any SI. Having a headache, took some acetaminophen. Reviewed that CSF resulted as nonreactive for VDRL. He's relieved by this but also noted he in part had hoped to have neurosyphilis as he felt like this could have explained some of the symptoms he's been dealing with. Physical Exam Psychiatric Orientation: alert and oriented x 3 Apperance: appropriately dressed and + disheveled Eye Contact: good eye contact Motor Behavior: no abnormal motor movements Speech: normal rate/rhythm/volume of speech Affect: + depressed affect Mood: + depressed mood Thought Process: goal directed thought process Thought Content: reality based without delusions Suicidal Thoughts: denies suicidal thoughts, denies suicidal plan and denies suicidal intent Homicidal Thoughts: denies homicidal thoughts Hallucinations: no auditory hallucinations and no visual hallucinations Cognition: recent memory grossly intact, remote memory grossly intact, attention grossly intact and language grossly intact Estimated Intelligence: consistent with education level Insight: + fair insight Judgment: + fair judgement Vital Signs (Past 24 Hours) Last Vital Signs Temp 36.9 C 05/03/25 06:20 Pulse 71 05/03/25 06:21 Resp 16 05/03/25 06:20 BP 97/66 L 05/03/25 06:21 Pulse Ox 96 05/01/25 06:23 O2 Del Method Room Air 05/01/25 06:23 Results & Data ([facility]) Laboratory Results Laboratory Results - last 24 hr 04/29/25 Unknown CSF VDRL Nonreactive Current Inpatient Medications Current Inpatient Medications: Current Inpatient Medications Acetaminophen (Acetaminophen 325 Mg Tab) 650 mg PO Q4H PRN PRN Reason: Headache or Minor Fever Stop: 05/26/25 18:08 Last Admin: 05/02/25 13:50 Dose: 650 mg Al Hydrox/Mg Hydrox/Simethicone (Aluminum/Magnesium Susp 30 Ml Udc) 30 ml PO Q4H PRN PRN Reason: GI Upset Stop: 05/26/25 18:08 Ascorbic Acid (Ascorbic Acid 500 Mg Tab) 250 mg PO QAM MARJAN Stop: 05/27/25 08:59 Last Admin: 05/03/25 08:56 Dose: 250 mg Benztropine Mesylate (Benztropine Mesylate 1 Mg Tab) 1 mg PO BID PRN PRN Reason: muscle stiffness Stop: 05/26/25 20:59 Bictegravir/Emtricitabine/Tenofovir (Biktarvy [Patient Own Med]) 1 each PO DAILY MARJAN Stop: 05/29/25 08:59 Last Admin: 05/03/25 08:58 Dose: 1 each Bismuth Subsalicylate (Bismuth Subsalicylate 262 Mg Chew) 2 tab PO Q30M PRN PRN Reason: Loose Stool/Diarrhea Stop: 05/26/25 18:08 Buspirone HCl (Buspirone 15 Mg Tab) 30 mg PO BID MARJAN Stop: 05/26/25 20:59 Last Admin: 05/03/25 08:57 Dose: 30 mg Celecoxib (Celebrex 200 Mg Cap) 200 mg PO QAM PRN PRN Reason: Pain Stop: 05/26/25 19:53 Cetirizine HCl (Cetirizine Hcl 10 Mg Tablet) 10 mg PO DAILY PRN PRN Reason: allergies Stop: 05/26/25 19:53 Deutetrabenazine (Deutetrabenazine (Austedo)) 1 each PO BID MARJAN Stop: 05/28/25 20:59 Last Admin: 05/03/25 08:57 Dose: 1 each Diphenoxylate HCl/Atropine (Diphenoxylate/Atropine 2.5/0.025mg Tab) 2 tab PO BID PRN PRN Reason: diarrhea Stop: 05/26/25 19:53 Duloxetine HCl (Duloxetine Hcl 60 Mg Cap) 60 mg PO BID MARJAN Stop: 05/27/25 20:59 Last Admin: 05/03/25 08:57 Dose: 60 mg Ferrous Sulfate (Ferrous Sulfate 325 Mg Tab) 325 mg PO QAM MARJAN Stop: 05/27/25 08:59 Last Admin: 05/03/25 08:56 Dose: 325 mg Fluticasone Propionate (Fluticasone Propionate Na Spr 16 Gm Btl) 1 sprays NA DAILY MARJAN Stop: 05/27/25 08:59 Last Admin: 05/03/25 09:01 Dose: 1 sprays Hydrochlorothiazide (Hydrochlorothiazide 25 Mg Tab) 25 mg PO DAILY PRN PRN Reason: leg swelling Stop: 05/27/25 08:59 Hydroxyzine HCl (Hydroxyzine Hcl 25 Mg Tab) 50 mg PO HSZ PRN PRN Reason: Insomnia Stop: 05/26/25 18:08 Last Admin: 05/02/25 21:23 Dose: 50 mg Hydroxyzine HCl (Hydroxyzine Hcl 25 Mg Tab) 25 mg PO Q4H PRN PRN Reason: Anxiety Stop: 05/26/25 18:08 [place] Carbonate ([place] Carbonate 300 Mg Tab) 900 mg PO HS MARJAN Stop: 05/31/25 21:59 Last Admin: 05/02/25 21:17 Dose: 900 mg Lorazepam (Lorazepam 0.5 Mg Tab) 0.5 mg PO DAILY PRN PRN Reason: Agitation/restlessness Stop: 05/28/25 08:59 Magnesium Hydroxide (Magnesium Hydroxide Susp 30 Ml Udc) 30 ml PO DAILY PRN PRN Reason: Constipation Stop: 05/26/25 18:08 Methocarbamol (Methocarbamol 750 Mg Tablet) 750 mg PO TID PRN PRN Reason: muscle spasm Stop: 05/26/25 20:59 Multivitamins (Multivitamin Tab) 1 tab PO QAM MARJAN Stop: 05/27/25 08:59 Last Admin: 05/03/25 08:56 Dose: 1 tab Pregabalin (Pregabalin 150 Mg Cap) 300 mg PO BID MARJAN Stop: 05/26/25 20:59 Last Admin: 05/03/25 08:59 Dose: 300 mg Sodium Chloride (Sodium Chloride 0.65% Na Soln 45 Ml ([place])) 1 - 2 sprays NA PRN PRN PRN Reason: Nasal Dryness/Congestion Stop: 05/26/25 18:08 Vibegron (Vibegron 75 Mg Tab) 75 mg PO DAILY MARJAN Stop: 05/27/25 08:59 Last Admin: 05/03/25 08:57 Dose: 75 mg Vitamin D (Cholecalciferol 125 Mcg (5,000 Units) Tab) 125 mcg PO QAM MARJAN Stop: 05/27/25 08:59 Last Admin: 05/03/25 08:57 Dose: 125 mcg Mental Health & Subst Abuse Tx Psychiatrist [facility]rist's Date Of Appointment With Psychiatric Provider: 05/25/2025 Time of Appointment with Psychiatrist: 11:00AM Psychiatric Appointment Comment: This appointment was previously established - no earlier appt. available. Therapist Name of Therapist: Denita Can Therapist's Date of Therapist Appointment: 05/06/25 Time of Therapist Appointment: 3PM Therapy Appointment Comment: Telehealth appt Personnel Security Specialist Name of Personnel Security Specialist: Kimberly Garnica Phone Number for Personnel Security Specialist: [phone] Post Discharge Appointments Primary Care Physician Name Of Family Doctor/PCP: Felictiy Vigil MD Primary Care Film Processing Supervisor Name of Film Processing Supervisor: Yudi Barger Phone Number of Film Processing Supervisor: [phone] Specialist Name of Specialist: Yumiko [facility], [facility] Phone Number for Specialist: [phone] Date of Appointment with Specialist: 06/24/25 Time of Appointment with Specialist: 12PM Specialty Appointment Comment: Neuropsych testing appt - [facility] Contact Information Discharge Discharge [facility] [address] [place] [place] [address]
[2025-05-04 06:24] VITALS: TEMP 98.2
[2025-05-04 07:12] LABS: HIV 1 RNA PCR Copies/ML NOT DETECTED copies/mL (NOT DETECTED)
--- NOTE | 2025-05-04 09:01 | Infectious Disease Progress Nt ---
Date of Service May 04, 2025 Assessment & Plan (1) Syphilis: Plan Problems: #Late latent syphilis #HIV: well controlled on Biktarvy, CD4 423 (26%) and VL <20 in 11/2024 #Bipolar affective disorder #Methamphetamine use disorder Micro: 04/29 CD4 545 (21%) 04/29 HIV VL: not detected 04/29 CSF VDRL: nonreactive 04/27 RPR: nonreactive 04/27 FTA-ABS: reactive 04/27 serum TPPA: positive 09/28/23 RPR: neg Abx: None 59 yo M with bipolar affective disorder, JERICHO, methamphetamine use disorder, HIV on Bikarvy followed at [facility] admitted on 04/26 on 201 voluntary commitment for bizarre behavior and SI. TPPA and FTA-ABS are positive, with negative RPR. Per chart review, pt denies a history of known syphilis infection or treatment. Per outpatient ID notes, pt appears to have well-controlled HIV and is adherent to Biktarvy, with a negative RPR in 09/2023. LP performed 04/29/25 to evaluate for neurosyphilis, which showed WBC 2, protein 58.6, VDRL negative. Recommendations: - CSF VDRL negative and CSF WBC 2, suggesting he does not have neurosyphilis. Given he denies a prior history of syphilis treatment, would treat this as late latent syphilis with penicillin G benzathine 2.4 MU IM once weekly x 3 weeks. Will give first dose today - Called [facility] to arrange for second and third doses on 05/12 and 05/19. The office will call pt to schedule - Please fax pt's labs (including serum TPPA, FTA-ABS, RPR, CSF studies, and my note to the [facility] office at [phone]) Will sign off. Discussed with primary team. Admission and Anticipated Discharge Date Admission Date: April 26, 2025 Subjective This patient recommendation is based on a telemedicine consult request which was completed asynchronously through chart review and information provided by the primary physician. The patient was not seen or examined today. The evaluation is consultative in nature and all patient care and treatment decisions can either be accepted or rejected by the patient's primary hospital-based treating physician using their own independent medical judgment for their patient. An e-consult was performed as the video cart is not functioning Time Spent Reviewing Chart: 11 - 20 minutes CSF VDRL negative Results & Data Vital Signs (Past 12 Hours) Vital Signs Temp Pulse Resp BP 05/04/25 06:23 69 110/75 05/04/25 06:23 36.8 C 60 16 112/74
[2025-05-04] MEDS: PENICIL G BENZ 600,000U/ML SYR 2ML IM ONE (10:48)
--- NOTE | 2025-05-04 16:21 | Psychiatric Progress Note ---
Date of Service May 04, 2025 Impression / Recommendations Impression STIVEN GRIGGS is a 59-year-old man who currently lives in [place] alone, has a history of bipolar affective disorder, JERICHO, methamphetamine use disorder, and was admitted on 04/26/25 17:43 on a 201 voluntary commitment for bizarre behavior and SI. Diagnostically consistent with bipolar affective disorder current depressive episode versus mixed episode given bizarre behavior and confusion resulting in disrobing at his apartment pool. History and presentation also consistent with tardive dyskinesia secondary to prior antipsychotic exposure. Seems his depression and suicidal ideation and odd behaviors occurred in the setting of subtherapeutic lithium levels, recent psychosocial stressors including social isolation due to broken phone and positive urine drug screen for methamphetamine/amphetamines that conflicts with his self-report of no recent use. A: Mood improving, VDRL CSF results are nonreactive. Patient is apprehensive and pessimistic about executing his treatment plan upon discharge. Supportive and motivational therapy provided. Patient open to being discharged tomorrow if his [id number] is available for pickle solution maker. Overall, I spent a total of >35 minutes on this case including meeting with the patient, reviewing the chart, nursing report, multidisciplinary team meeting, orders, and documentation, coordination with specialty services. (1) Bipolar affective disorder, current episode mixed: (2) Generalized anxiety disorder: (3) Bipolar 1 disorder: (4) Mild cognitive impairment: (5) Extrapyramidal and movement disorder, unspecified: (6) On HAART (highly active antiretroviral) therapy: (7) Syphilis: Plan 05/04/2025: Continue current psychotropic medication: Cymbalta 60 mg PO BID [place] 900 mg PO QHS ([place] level ordered for tonight before nightly dose) Pregabalin [Lyrica] 300 mg PO BID Buspar 30 mg PO BID PRN Vistaril 50 mg PO HSZ PRN Vistaril 25 mg PO Q4H PRN Cogentin 1 mg PO BID PRN Ativan 0.5 mg PO QD Late latent syphilis Per ID Consult: There is no evidence of neurosyphilis (CSF VDRL negative and CSF WBC 2) Given he denies a prior history of syphilis treatment, would treat this as late latent syphilis with penicillin G benzathine 2.4 MU IM once weekly x 3 weeks. First dose was given today [facility] contacted to arrange for second and third doses on 05/12 and 05/19. The office will call pt to schedule The patient's records are to be faxed to the [facility] office at [phone] (including serum TPPA, FTA-ABS, RPR, CSF studies, and ID note) 05/03/2025: -Continue current medications and tx plan 05/02/2025: -Continue current medications and tx plan 05/01/2025: -Increase [place] to 900mg HS 04/30/2025: -Increase [place] to 600mg HS 04/29/2025: -LP with CSF panel per ID recommendations -Appreciate ID and IR assistance in caring for Daniel -Continue current psychiatric medications and tx plan for now 04/28/2025: -Consider further lithium titration but will follow syphilis workup first -Consult infectious disease for recommendations regarding need for GATEKEEPER workup/any further testing 04/27/2025: The patient was admitted to the [facility] ([facility]) on q15 min checks (behavioral with suicide precautions) for safety. The patient will participate in group, recreational, and milieu therapies and will be offered additional individual and family sessions as clinically appropriate. -Discontinue fluphenazine -Discontinue Wellbutrin -Discontinue pramipexole -Continue [place] 300mg HS (consider further titration) -Continue Buspar 30mg BID -Continue duloxetine 60mg BID (reviewed and he understands this is a high dose which not confirm additional benefits but he feels it does help with depression and RLS) -Change ativan 0.5mg daily to daily prn (caution given history of amphetamine/methamphetamine use disorder but also with significant hx of akathisia so will continue for now if needed) -Change benztropine 1mg BID to prn given potential to worsen tardive dyskinesia over time and anticholinergic effects can worsen confusion and sedation Inventory Assets Strengths: supportive relationships, willing to get treatment Needs: safety and stabilization, medication adjustment, additional coping skills, increased outpatient services Suicide Risk Level Suicide Risk Level: Moderate (q15 min suicide checks) (recent SI, reckless behaviors and depression but denies current SI and feels safe in the hospital and feels able to ask for support) Suicide Risk Level Comments: High-Moderate due to severe depression with SI with plan prior to admission but feels safe in the hospital, able to safety contract and agrees to let nursing/staff know should they develop plan, intent or feel unable to remain safe. Risk Factors Assessment Male: Yes : Yes Do You Have Access To A Gun?: No Health Problems: Yes Mental Health Diagnoses: Yes Substance Use Disorders: Yes Previous Attempt: Yes Family History of Suicide: No Previous Psychiatric Hospitalization: Yes Hopelessness: No Protective Factors Assessment Employed: Yes ([employer]) Stable Relationships: Yes Good Rapport with Provider: Yes Interval History Identifying Information STIVEN GRIGGS is a 59-year-old man who currently lives in [place] alone, has a history of bipolar affective disorder, JERICHO, methamphetamine use disorder, and was admitted on 04/26/25 17:43 on a 201 voluntary commitment for bizarre behavior and SI. Chief Complaint "[Im afraid]". Review of Systems Sleep Information Total Hours of Sleep: 9 Meal Information Percent Meal Consumed - Breakfast: 100 Percent Meal Consumed - Lunch: 100 Percent Meal Consumed - Dinner: 100 Subjective Subjective Patient was seen & assessed on the unit this morning. He reported his mood as "really bad. Im afraid," with preserved sleep and appetite. The patient was disappointed to hear that there were no signs of neurosyphilis stating, "the bad result would have explained a lot... I dont understand why I did what I did." Patient identified the toxic relationship with his ex- as a trigger for his episode. We reviewed more recent stressors that could have contributed to his decompensation, which included being assigned to a new lead case manager about a week prior, his lead case managerhuman resources operations manager COVID and being unable to meet, and breaking his phone 2 days prior and losing a source of communication. Patient did not openly acknowledge the contribution of these stressors focusing on relationship with his ex-. He was pessimistic about all proposed interventions. Motivational therapy was provided for him to identify potential needs. He was provided reassurance that his outpatient treatment team were available to modify his treatment and safety plan when necessary. Patient reported chronic demeaning auditory hallucinations and chronic suicidal ideations with historical plans of overdosing but without current intent. "Its the same thoughts that I usually have," he stated. Unsure of what prompted him to decompensate, the patient reports feeling anxious and unsafe being discharg ed. "Its probably going to depend on how my first contact with him goes, he stated. The patient was encouraged to process today's discussion. He feels he may be ready for discharge by tomorrow. Interval progress reviewed with [treatment team] [nursing and social work] Physical Exam Psychiatric Orientation: alert and oriented x 3 Apperance: appropriately dressed and appropriately groomed Eye Contact: good eye contact Motor Behavior: no abnormal motor movements Speech: normal rate/rhythm/volume of speech Affect: + depressed affect and + anxious affect Mood: + depressed mood and + anxious mood "really bad. Im afraid" ; confirmed having feelings of depression and anxiety Thought Process: goal directed thought process Thought Content: reality based without delusions, + loneliness and + self deprecation Suicidal Thoughts: denies suicidal intent; + reports suicidal thoughts ("It's the same thoughts that I usually have...the same way that never works) Homicidal Thoughts: denies homicidal thoughts Hallucinations: no auditory hallucinations and no visual hallucinations Cognition: recent memory grossly intact, remote memory grossly intact, attention grossly intact and language grossly intact Estimated Intelligence: consistent with education level Insight: + limited insight and + fair insight Judgment: + limited judgement and + fair judgement Vital Signs (Past 24 Hours) Last Vital Signs Temp 36.8 C 05/04/25 06:23 Pulse 69 05/04/25 06:23 Resp 16 05/04/25 06:23 BP 110/75 05/04/25 06:23 Pulse Ox 96 05/01/25 06:23 O2 Del Method Room Air 05/01/25 06:23 Results & Data ([facility]) Laboratory Results Laboratory Results - last 24 hr 04/29/25 09:02 Absolute Lymphocytes 2577 % CD4 Cells 21 L Absolute CD4 Count 545 HIV-1 RNA copies/mL NOT DETECTED HIV-1 RNA logcopies/mL NOT DETECTED Current Inpatient Medications Current Inpatient Medications: Current Inpatient Medications Acetaminophen (Acetaminophen 325 Mg Tab) 650 mg PO Q4H PRN PRN Reason: Headache or Minor Fever Stop: 05/26/25 18:08 Last Admin: 05/03/25 10:11 Dose: 650 mg Al Hydrox/Mg Hydrox/Simethicone (Aluminum/Magnesium Susp 30 Ml Udc) 30 ml PO Q4H PRN PRN Reason: GI Upset Stop: 05/26/25 18:08 Ascorbic Acid (Ascorbic Acid 500 Mg Tab) 250 mg PO QAM MARJAN Stop: 05/27/25 08:59 Last Admin: 05/04/25 08:30 Dose: 250 mg Benztropine Mesylate (Benztropine Mesylate 1 Mg Tab) 1 mg PO BID PRN PRN Reason: muscle stiffness Stop: 05/26/25 20:59 Bictegravir/Emtricitabine/Tenofovir (Biktarvy [Patient Own Med]) 1 each PO DAILY MARJAN Stop: 05/29/25 08:59 Last Admin: 05/04/25 08:31 Dose: 1 each Bismuth Subsalicylate (Bismuth Subsalicylate 262 Mg Chew) 2 tab PO Q30M PRN PRN Reason: Loose Stool/Diarrhea Stop: 05/26/25 18:08 Buspirone HCl (Buspirone 15 Mg Tab) 30 mg PO BID MARJAN Stop: 05/26/25 20:59 Last Admin: 05/04/25 08:32 Dose: 30 mg Celecoxib (Celebrex 200 Mg Cap) 200 mg PO QAM PRN PRN Reason: Pain Stop: 05/26/25 19:53 Cetirizine HCl (Cetirizine Hcl 10 Mg Tablet) 10 mg PO DAILY PRN PRN Reason: allergies Stop: 05/26/25 19:53 Deutetrabenazine (Deutetrabenazine (Austedo)) 1 each PO BID MARJAN Stop: 05/28/25 20:59 Last Admin: 05/04/25 08:32 Dose: 1 each Diphenoxylate HCl/Atropine (Diphenoxylate/Atropine 2.5/0.025mg Tab) 2 tab PO BID PRN PRN Reason: diarrhea Stop: 05/26/25 19:53 Duloxetine HCl (Duloxetine Hcl 60 Mg Cap) 60 mg PO BID MARJAN Stop: 05/27/25 20:59 Last Admin: 05/04/25 08:32 Dose: 60 mg Ferrous Sulfate (Ferrous Sulfate 325 Mg Tab) 325 mg PO QAM MARJAN Stop: 05/27/25 08:59 Last Admin: 05/04/25 08:33 Dose: 325 mg Fluticasone Propionate (Fluticasone Propionate Na Spr 16 Gm Btl) 1 sprays NA DAILY MARJAN Stop: 05/27/25 08:59 Last Admin: 05/04/25 08:34 Dose: 1 sprays Hydrochlorothiazide (Hydrochlorothiazide 25 Mg Tab) 25 mg PO DAILY PRN PRN Reason: leg swelling Stop: 05/27/25 08:59 Hydroxyzine HCl (Hydroxyzine Hcl 25 Mg Tab) 50 mg PO HSZ PRN PRN Reason: Insomnia Stop: 05/26/25 18:08 Last Admin: 05/03/25 21:22 Dose: 50 mg Hydroxyzine HCl (Hydroxyzine Hcl 25 Mg Tab) 25 mg PO Q4H PRN PRN Reason: Anxiety Stop: 05/26/25 18:08 [place] Carbonate ([place] Carbonate 300 Mg Tab) 900 mg PO HS MARJAN Stop: 05/31/25 21:59 Last Admin: 05/03/25 21:17 Dose: 900 mg Lorazepam (Lorazepam 0.5 Mg Tab) 0.5 mg PO DAILY PRN PRN Reason: Agitation/restlessness Stop: 05/28/25 08:59 Magnesium Hydroxide (Magnesium Hydroxide Susp 30 Ml Udc) 30 ml PO DAILY PRN PRN Reason: Constipation Stop: 05/26/25 18:08 Methocarbamol (Methocarbamol 750 Mg Tablet) 750 mg PO TID PRN PRN Reason: muscle spasm Stop: 05/26/25 20:59 Multivitamins (Multivitamin Tab) 1 tab PO QAM MARJAN Stop: 05/27/25 08:59 Last Admin: 05/04/25 08:34 Dose: 1 tab Pregabalin (Pregabalin 150 Mg Cap) 300 mg PO BID MARJAN Stop: 05/26/25 20:59 Last Admin: 05/04/25 08:29 Dose: 300 mg Sodium Chloride (Sodium Chloride 0.65% Na Soln 45 Ml ([place])) 1 - 2 sprays NA PRN PRN PRN Reason: Nasal Dryness/Congestion Stop: 05/26/25 18:08 Vibegron (Vibegron 75 Mg Tab) 75 mg PO DAILY MARJAN Stop: 05/27/25 08:59 Last Admin: 05/04/25 08:35 Dose: 75 mg Vitamin D (Cholecalciferol 125 Mcg (5,000 Units) Tab) 125 mcg PO QAM MARJAN Stop: 05/27/25 08:59 Last Admin: 05/04/25 08:32 Dose: 125 mcg Mental Health & Subst Abuse Tx Psychiatrist Name of Psychiatrist: [facility] Psychiatrist's Date Of Appointment With Psychiatric Provider: 05/25/2025 Time of Appointment with Psychiatrist: 11:00AM Psychiatric Appointment Comment: This appointment was previously established - no earlier appt. available. Therapist Name of Therapist: Denita Can Therapist's Date of Therapist Appointment: 05/06/25 Time of Therapist Appointment: 3PM Therapy Appointment Comment: Telehealth appt Bindery Production Manager Name of Bindery Production Manager: Kimberly Garnica Phone Number for Bindery Production Manager: [phone] Post Discharge Appointments Primary Care Physician Name Of Family Doctor/PCP: Felicity Vigil MD Primary Care Rodding Anode Worker Name of Rodding Anode Worker: Yudi Barger Phone Number of Rodding Anode Worker: [phone] Specialist Name of Specialist: Al (Penicillin Injections) [address], [place], [place] Phone Number for Specialist: Date of Appointment with Specialist: 05/12/25 Time of Appointment with Specialist: 12PM Specialty Appointment Comment: Appt on 05/12 and 05/19, will call patient directly to schedule a time Contact Information Discharge Discharge Address: [facility] [place] Mitchell [address] [address]
[2025-05-05 10:23] VITALS: PULSE 69
[2025-05-05 10:29] VITALS: BP 123/40
--- NOTE | 2025-05-05 11:24 | Discharge Summary ---
Date of Service May 05, 2025 History of Present Illness Daniel presents for psychiatric admission following an episode where he was found partially undressed at his apartment complex pool making statements about suicide. He reports recent episodes of confusion including entering the wrong apartment and startling someone which led to police involvement a few weeks ago. States he has been experiencing more of these "weird little things" including confusion about his surroundings. And he also states he smashed items in his apartment earlier this week due to "I was out of control I just did not care anymore" noting that he did not want to live anymore. However he denies any recent attempts at suicide which conflicts with what he told providers in the ED regarding an attempt the day prior to admission. And he mentioned several recent stressors including learning he needs 25 teeth extracted uncertainty about his housing situation due to a required income reassessment and losing his phone earlier in the week which left him unable to communicate with others. He feels these factors contributed to his recent distress, suicidal ideation and destruction of property in his apartment. He becomes tearful on hearing that his and [id number] have offered to clean up his apartment noting that this makes him feel a lot better about returning there. He also expresses regret about scaring his dogs because they are his main reason for living. And he describes ongoing depression stating he cannot remember when he was not depressed. He expresses disappointment in himself for his recent suicidal thoughts and ending up in the hospital because he missed a therapy appointment today and the start of a new job today. He denies thoughts of suicide today but continues to state that he feels disappointed in himself. Regarding medication and he reports taking his lithium and Cymbalta regularly. He confirms this even when we discussed his lithium level is fairly low. He feels the Cymbalta is very helpful with depression and restless legs and likes this he states the Wellbutrin was started within the last month and he is not interested in continuing this. He expresses frustration with recent frequent medication changes over the last few months stating he has "lost kelly" and his outpatient provider due to monthly alterations left him unsure of what he was taking and without time given to determine if they were offering any benefit. He also takes deutetrabenazine for tardive dyskinesia and benztropine for tardive dyskinesia and ropinirole for restless legs. He does not think he has been taking an antipsychotic medication recently even when we discuss fluphenazine. He denies any recent methamphetamine use stating his last use was "weeks" ago. States he likely would have used more recently but "I did not have any". Reviewed that his urine drug screen was positive on initial screen for amphetamine/methamphetamine. He denies any other recent substance use. Psychiatric ROS notable for history of noemi. No current nor history of symptoms of psychosis, PTSD, OCD nor eating disorder. Physical Exam Mental Examination Appearance: Well Groomed Eye Contact: Avoids Eye Contact Motor Behavior: Restless Speech: Disorganized and Slurred Mood: Anxious Affect: Anxious, Apprehensive and Nervous Thought Process: Goal Oriented, Linear and Logical Hallucinations: None Insight: Fair Judgement: Fair Psychiatric Orientation: alert and oriented x 3 Apperance: appropriately dressed, appropriately groomed and + disheveled Eye Contact: good eye contact Motor Behavior: no abnormal motor movements Speech: normal rate/rhythm/volume of speech Affect: + depressed affect, + anxious affect and + tearful affect Mood: + anxious mood ("scared") Thought Process: goal directed thought process Thought Content: reality based without delusions, + loneliness and + self deprecation Suicidal Thoughts: denies suicidal thoughts, denies suicidal plan and denies suicidal intent Homicidal Thoughts: denies homicidal thoughts Hallucinations: no auditory hallucinations and no visual hallucinations Cognition: recent memory grossly intact, remote memory grossly intact, attention grossly intact and language grossly intact Estimated Intelligence: consistent with education level Insight: + limited insight and + fair insight Judgment: + fair judgement Vital Signs (Past 24 Hours) Last Vital Signs Temp 36.8 C 05/05/25 10:22 Pulse 69 05/05/25 10:22 Resp 16 05/05/25 10:22 BP 123/40 L 05/05/25 10:22 Pulse Ox 96 05/05/25 10:22 O2 Del Method Room Air 05/01/25 06:23 Principal Diagnosis Bipolar I Disorder, most recent episode unspecified with mixed features Psychiatric Data See daily stay summary below. In short, safety was maintained and the patient was cooperative with care. Medication changes included Astoria increased to 900 mg PO QHS, Cogentin changed to PRN frequency, and Vistaril started for breakthrough anxiety/insomnia and they tolerated this well. A family session was held and safety plan was completed prior to discharge. 05/04/25 Astoria level was sub-therapeutic at 0.5 mmol/L 05/04/2025: Continue current psychotropic medication: Cymbalta 60 mg PO BID Astoria 900 mg PO QHS Pregabalin [Lyrica] 300 mg PO BID Buspar 30 mg PO BID PRN Vistaril 50 mg PO HSZ PRN Vistaril 25 mg PO Q4H PRN Cogentin 1 mg PO BID PRN Ativan 0.5 mg PO QD Late latent syphilis Per ID Consult: There is no evidence of neurosyphilis (CSF VDRL negative and CSF WBC 2) Given he denies a prior history of syphilis treatment, would treat this as late latent syphilis with penicillin G benzathine 2.4 MU IM once weekly x 3 weeks. First dose was given today Al contacted to arrange for second and third doses on 05/12 and 05/19. The office will call pt to schedule The patient's records are to be faxed to the Al office at [phone] (including serum TPPA, FTA-ABS, RPR, CSF studies, and ID note) 05/03/2025: -Continue current medications and tx plan 05/02/2025: -Continue current medications and tx plan 05/01/2025: -Increase Astoria to 900mg HS 04/30/2025: -Increase Astoria to 600mg HS 04/29/2025: -LP with CSF panel per ID recommendations -Appreciate ID and IR assistance in caring for Daniel -Continue current psychiatric medications and tx plan for now 04/28/2025: -Consider further lithium titration but will follow syphilis workup first -Consult infectious disease for recommendations regarding need for 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 The patient will participate in group, recreational, and milieu therapies and will be offered additional individual and family sessions as clinically appropriate. -Discontinue fluphenazine -Discontinue Wellbutrin -Discontinue pramipexole -Continue Astoria 300mg HS (consider further titration) -Continue Buspar 30mg BID -Continue duloxetine 60mg BID (reviewed and he understands this is a high dose which not confirm additional benefits but he feels it does help with depression and RLS) -Change ativan 0.5mg daily to daily prn (caution given history of amphetamine/methamphetamine use disorder but also with significant hx of akathisia so will continue for now if needed) -Change benztropine 1mg BID to prn given potential to worsen tardive dyskinesia over time and anticholinergic effects can worsen confusion and sedation Day of Discharge Assessment Today the patient voices readiness for discharge. They note improvement in mood and deny thoughts to harm self or others. Thoughts remain organized and they are improved from admission. There is no evidence of psychosis. They agree to take mediations as prescribed and keep follow-up appointments. They are stable for discharge to outpatient level of care. Transition of Care Transition Of Care Record: was reviewed with the patient Advance Directives Advance Directives Information Provided: Yes Advance Directives: No Mental Health Advance Directive: No Advance Directives on File: No Living Will: No Power of Supervisor Statement Clerks: No Advance Directives Reason:: Declines as Mental Health Visit. Suicide Risk Level Suicide Risk Level Comments: Low-Moderate due to a history of chronic suicidal ideation and prior suicide attempts. The patient denied SI at discharged and contracted to safety agreeing to comply with his safety plan should they develop suicidal plan, intent or feel unable to remain safe. Risk Factors Assessment Male: Yes : Yes Do You Have Access To A Gun?: No Health Problems: Yes Mental Health Diagnoses: Yes Substance Use Disorders: Yes Previous Attempt: Yes Family History of Suicide: No Previous Psychiatric Hospitalization: Yes Hopelessness: No Protective Factors Assessment Employed: Yes ([employer]) Stable Relationships: Yes Good Rapport with Provider: Yes Discharge Data Consultations 04/28/25 16:22 Consult Infectious Diseases Routine Lab Results 04/26/25 04/26/25 04/27/25 12:24 14:46 07:28 WBC 7.60 RBC 5.17 Hgb 16.2 Hct 44.8 MCV 86.7 MCH 31.3 MCHC 36.2 H RDW Std Deviation 39.5 RDW Coeff of Bereket 12.6 Plt Count 164 MPV 10.8 Immature Gran % (Auto) 0.3 Neut % (Auto) 69.4 Lymph % (Auto) 21.2 Page % (Auto) 8.4 Eos % (Auto) 0.4 Baso % (Auto) 0.3 Neut # (Auto) 5.28 Lymph # (Auto) 1.61 Page # (Auto) 0.64 H Eos # (Auto) 0.03 Baso # (Auto) 0.02 Immature Gran # (Auto) 0.02 Sodium 137 Potassium 3.5 Chloride 105 Carbon Dioxide 24 Anion Gap 8 BUN 18 Creatinine 1.04 Est Cr Clr Drug Dosing 89.0 eGFR 83.75 BUN/Creatinine Ratio 17.3 Glucose 101 H Estimat Average Glucose 82 Hemoglobin A1c 4.5 Calcium 9.4 Total Bilirubin 1.1 H AST 20 ALT 13 Alkaline Phosphatase 83 Total Protein 7.2 Albumin 4.3 Globulin 2.9 Albumin/Globulin Ratio 1.5 Triglycerides 108 Cholesterol 128 LDL Cholesterol, Calc 63 VLDL Cholesterol, Calc 22 HDL Cholesterol 43 Cholesterol/HDL Ratio 3.0 Vitamin B12 817 25-OH Vitamin D Total 45.6 TSH 1.191 Urine Color Dark Yellow Urine Appearance Cloudy A Urine pH 5.5 Ur Specific Medusa 1.025 Urine Protein 1+ H Urine Glucose (UA) Negative Urine Ketones 1+ H Urine Blood Negative Urine Nitrite Negative Urine Bilirubin 2+ H Urine Urobilinogen Negative Ur Leukocyte Esterase Trace H Urine WBC (Auto) 0-5 Urine RBC (Auto) 0-2 U Hyaline Cast (Auto) 11-20 H U Epithel Cells (Auto) 3-5 H Urine Bacteria (Auto) None Seen Hyaline Casts Present A Urine Mucus Present A Urine Comment Fluid Comment CSF Appearance CSF Color Xanthrochromic CSF WBC CSF RBC CSF Cell Count Tube # CSF Chemistry Tube # CSF Glucose CSF Total Protein CSF VDRL Salicylates < 3.0 L Urine Opiates Screen Neg Ur Methadone, Qual Neg Urine Fentanyl Screen Neg Acetaminophen < 3 L Urine Barbiturates Neg Ur Phencyclidine (PCP) Neg U Amphetamines Confirm 1276 H U Amphetamin/Meth Scrn Pos H U Methamphetamin Confrm 2106 H MDMA (Ecstasy) Screen Neg U Benzodiazepines Scrn Neg Astoria 0.3 L Ur Cocaine Metabolite Neg U Marijuana (THC) Screen Neg Drug Screen Comment SEE NOTE Ethyl Alcohol mg/dL < 10.0 Absolute Lymphocytes % CD4 Cells Absolute CD4 Count RPR NON-REACTIVE Treponema pallidum Ab Positive H T.pallidum Ab (FTA-ABS) Reactive A HIV-1 RNA copies/mL HIV-1 RNA logcopies/mL SARS-CoV-2, RNA, NAAT NEGATIVE 04/29/25 04/29/25 05/04/25 09:02 Unknown 21:15 WBC RBC Hgb Hct MCV MCH MCHC RDW Std Deviation RDW Coeff of Bereket Plt Count MPV Immature Gran % (Auto) Neut % (Auto) Lymph % (Auto) Page % (Auto) Eos % (Auto) Baso % (Auto) Neut # (Auto) Lymph # (Auto) Page # (Auto) Eos # (Auto) Baso # (Auto) Immature Gran # (Auto) Sodium Potassium Chloride Carbon Dioxide Anion Gap BUN Creatinine Est Cr Clr Drug Dosing eGFR BUN/Creatinine Ratio Glucose Estimat Average Glucose Hemoglobin A1c Calcium Total Bilirubin AST ALT Alkaline Phosphatase Total Protein Albumin Globulin Albumin/Globulin Ratio Triglycerides Cholesterol LDL Cholesterol, Calc VLDL Cholesterol, Calc HDL Cholesterol Cholesterol/HDL Ratio Vitamin B12 25-OH Vitamin D Total TSH Urine Color Urine Appearance Urine pH Ur Specific [place] Urine Protein Urine Glucose (UA) Urine Ketones Urine Blood Urine Nitrite Urine Bilirubin Urine Urobilinogen Ur Leukocyte Esterase Urine WBC (Auto) Urine RBC (Auto) U Hyaline Cast (Auto) U Epithel Cells (Auto) Urine Bacteria (Auto) Hyaline Casts Urine Mucus Urine Comment Fluid Comment CSF Appearance Clear CSF Color Colorless Xanthrochromic No xanthochromia CSF WBC 2 CSF RBC 0 CSF Cell Count Tube # 3 CSF Chemistry Tube # 2 CSF Glucose 59 CSF Total Protein 58.6 H CSF VDRL Nonreactive Salicylates Urine Opiates Screen Ur Methadone, Qual Urine Fentanyl Screen Acetaminophen Urine Barbiturates Ur Phencyclidine (PCP) U Amphetamines Confirm U Amphetamin/Meth Scrn U Methamphetamin Confrm MDMA (Ecstasy) Screen U Benzodiazepines Scrn Astoria 0.5 L Ur Cocaine Metabolite U Marijuana (THC) Screen Drug Screen Comment Ethyl Alcohol mg/dL Absolute Lymphocytes 2577 % CD4 Cells 21 L Absolute CD4 Count 545 RPR Treponema pallidum Ab T.pallidum Ab (FTA-ABS) HIV-1 RNA copies/mL NOT DETECTED HIV-1 RNA logcopies/mL NOT DETECTED SARS-CoV-2, RNA, NAAT Hospital Course (1) Bipolar affective disorder, current episode mixed: (2) Generalized anxiety disorder: (3) Bipolar 1 disorder: (4) Mild cognitive impairment: (5) Extrapyramidal and movement disorder, unspecified: (6) On HAART (highly active antiretroviral) therapy: (7) Syphilis: Plan Continue current psychotropic medication: Cymbalta 60 mg PO BID Astoria 900 mg PO QHS (05/04/25 Astoria level was sub-therapeutic at 0.5 mmol/L; May consider increasing Astoria dose as tolerated) Pregabalin [Lyrica] 300 mg PO BID Buspar 30 mg PO BID PRN Vistaril 50 mg PO HSZ PRN Vistaril 25 mg PO Q4H PRN Cogentin 1 mg PO BID PRN Ativan 0.5 mg PO QD Continue remaining medications as per instructions section Late latent syphilis Per ID Consult: There is no evidence of neurosyphilis (CSF VDRL negative and CSF WBC 2) Given he denies a prior history of syphilis treatment, would treat this as late latent syphilis with penicillin G benzathine 2.4 MU IM once weekly x 3 weeks. First dose was given today [facility] contacted to arrange for second and third doses on 05/12 and 05/19. The office will call pt to schedule The patient's records are to be faxed to the cj office at [phone] (including serum TPPA, FTA-ABS, RPR, CSF studies, and ID note) Mental Health & Subst Abuse Tx Psychiatrist Name of Psychiatrist: [facility] Psychiatrist's Date Of Appointment With Psychiatric Provider: 05/25/2025 Time of Appointment with Psychiatrist: 11:00AM Psychiatric Appointment Comment: This appointment was previously established - no earlier appt. available. Psychiatrist Release of Information: Obtained, Reviewed and Signed Therapist Name of Therapist: EmilyConcepción Can Therapist's Date of Therapist Appointment: 05/06/25 Time of Therapist Appointment: 3PM Therapy Appointment Comment: Telehealth appt Therapist Release of Information: Obtained, Reviewed and Signed Senior Training Specialist Name of Senior Training Specialist: Kimberly Garnica Phone Number for Senior Training Specialist: [phone] Case Management Appointment Comment: Will call you to make appointment Senior Training Specialist Release of Information: Obtained, Reviewed and Signed Post Discharge Appointments Primary Care Physician Name Of Family Doctor/PCP: Felicity Vigil MD Primary Care Provider Appointment Comment: As needed Fixing Carpenter Name of Fixing Carpenter: Yudi Barger Phone Number of Fixing Carpenter: [phone] Specialist Name of Specialist: Al (Penic[facility]jections) [address] [facility] [address], [place], [place] Phone Number for Specialist: Date of Appointment with Specialist: 05/12/25 Time of Appointment with Specialist: 12PM Specialty Appointment Comment: Appt on 05/12 and 05/19, will call patient directly to schedule a time Specialist Release of Information: Obtained, Reviewed and Signed Other #1: Name of Aftercare Appointment: [facility] Phone Number of Aftercare Appointment: [phone] Date of Aftercare Appointment: 06/24/25 Time of Aftercare Appointment: 12PM Aftercare Appointment Comment: Neuropsych testing appt - [facility] Release of Information Aftercare Appointment: Obtained, Reviewed and Signed Contact Information Discharge Discharge Address: [facility] [place] [address] [address] Discharge Plan Discharge Items Patient Disposition: Home - Self-Care Reason For Visit: UNSPECIFIED MOOD DISORDER Discharge Diagnosis: (1) Bipolar affective disorder, current episode mixed: (2) Generalized anxiety disorder: (3) Bipolar 1 disorder: (4) Mild cognitive impairment: (5) Extrapyramidal and movement disorder, unspecified (6) On HAART (highly active antiretroviral) therapy: (7) Syphilis Condition on Discharge: Fair Activity: Per Instructions section Non-emergency contact: Primary Care Provider Call non-emergency contact if: you have any medication questions and your symptoms worsen Follow-up/Referrals: Felicity Colon MD [Primary Care Provider] - Diet: Regular Addtl Attending Provider Instructions: Continue current psychotropic medication: Cymbalta 60 mg by mouth twice daily Astoria 900 mg by mouth nightly Pregabalin [Lyrica] 300 mg by mouth twice daily Buspar 30 mg by mouth twice daily PRN Vistaril 50 mg by mouth nightly as needed for insomnia Continue Vitamin D 125 mcg by mouth every morning Continue Gemtesa 75 mg by mouth daily Continue Ferrous Sulfate 325 mg by mouth daily Continue multivitamins 1 tablet by mouth every morning Continue Vitamin C 250 mg by mouth every morning Continue Biktarvy 1 each by mouth daily Continue Austedo 1 each by mouth twice daily Continue Flonase 1 spray nasally per day Pending Studies at Discharge: No Stand-Alone Forms: My [facility], Smoking Cessation Medications and DC Order Prescriptions: New acetaminophen 325 mg Tablet 650 mg PO Q4H PRN (Reason: pain) Qty: 30 0RF ferrous sulfate 325 mg (65 mg iron) Tablet,Delayed Release (Dr/Ec) 325 mg PO QAM Qty: 30 0RF benztropine 1 mg Tablet 1 mg PO BID PRN (Reason: extrapyramidal effects/symptoms) Qty: 30 0RF Austedo 6 mg tablet 6 mg PO BID Qty: 60 0RF hydroxyzine HCl 25 mg Tablet 50 mg PO HSZ PRN (Reason: insomnia) Qty: 30 0RF hydroxyzine HCl 25 mg Tablet 25 mg PO Q4H PRN (Reason: anxiety) Qty: 30 0RF lorazepam 0.5 mg Tablet 0.5 mg PO DAILY PRN (Reason: anxiety) Qty: 14 0RF lithium carbonate 300 mg Tablet 900 mg PO HS Qty: 30 0RF hydrochlorothiazide 25 mg Tablet 25 mg PO DAILY PRN (Reason: Fluid Retention) Qty: 30 0RF Gemtesa 75 mg Tablet 75 mg PO DAILY Qty: 30 0RF ascorbic acid (vitamin C) [Vitamin C] 500 mg Tablet 250 mg PO QAM Qty: 30 0RF cholecalciferol (vitamin D3) 125 mcg (5,000 unit) Tablet 125 mcg PO QAM Qty: 30 0RF Continued pregabalin 300 mg capsule 300 mg PO BID Qty: 60 5RF diphenoxylate-atropine [Lomotil] 2.5-0.025 mg tablet 2 tab PO BID PRN (Reason: diarrhea) Qty: 120 0RF duloxetine 60 mg capsule,delayed release(DR/EC) 60 mg PO BID Qty: 60 2RF celecoxib 200 mg capsule 200 mg PO QAM PRN (Reason: Pain) Qty: 90 3RF Rx Instructions: Dr.Billy Mazin WAGONER fluticasone propionate [Flonase Allergy Relief] 50 mcg/actuation spray,suspension 1 spray INTRANASAL DAILY Qty: 16 1RF Rx Instructions: administer into each nostril multivitamin Tablet 1 tab PO DAILY cetirizine [Zyrtec] 10 mg Tablet 10 mg PO DAILY PRN (Reason: allergies) methocarbamol 750 mg tablet 750 mg PO TID buspirone 30 mg tablet 30 mg PO BID Biktarvy 50-200-25 mg tablet See Rx Instructions .ROUTE .COMPLEX Rx Instructions: Take 1 tab daily Wegovy 0.25 mg/0.5 mL pen injector 0.25 mg SUBCUT MONTHLY pramipexole 0.125 mg tablet 0.125 mg PO TID Discontinued propranolol 10 mg tablet 10 mg PO DAILY Austedo 12 mg Tablet 12 mg PO BID lorazepam [Ativan] 0.5 mg tablet 0.5 mg DAILY hydrochlorothiazide 25 mg tablet 25 mg PO DAILY bupropion HCl [Wellbutrin XL] 150 mg tablet extended release 24 hr 150 mg PO DAILY mirabegron [Myrbetriq] 50 mg tablet extended release 24 hr 50 mg PO DAILY benztropine 0.5 mg tablet 1 mg PO BID fluphenazine HCl 5 mg tablet 5 mg PO DAILY lithium carbonate 150 mg capsule 150 mg PO BID lithium carbonate 300 mg capsule 300 mg PO BID Discharge Orders: Discharge Order (Routine); Ordered 05/05/25 Ordered By: Gilbert Matias Admission Data Admit Date/Time: 04/26/25 17:43 Attending Provider: Tabby Crockett Admit Provider: Tabby Crockett Primary Care Provider: Felicity Colon V. Coding Level of Care Code 52849 D/C day mgmt 30 min or < Diagnoses Bipolar affective disorder, current episode mixed F31.60 Generalized anxiety disorder F41.1 Bipolar 1 disorder F31.9 Mild cognitive impairment G31.84 Extrapyramidal and movement disorder, unspecified G25.9 On HAART (highly active antiretroviral) therapy Z79.899 Syphilis A53.9
== END 2025-05-05 11:35 | disposition home or self-care (01) | DRG 885 ==
LOC: ED 12:02 → 3S 17:43